=== PATIENT | female | born 1940 | race Caucasian/White ===

== ENCOUNTER → 2016-06-24 | Outpatient (CLI) | payer MEDICARE, BC ==
--- NOTE | 2016-06-25 11:19 | MM ---
Reason for exam: screening (asymptomatic). Last mammogram was performed 1 year and 3 months ago. History: Patient is postmenopausal and history of other cancer. Physical Findings: A clinical breast exam by your physician is recommended on an annual basis and results should be correlated with mammographic findings. MG 3D Screening Mammo W/Cad Bilateral CC and MLO view(s) were taken. Prior study comparison: March 22, 2015, bilateral MG 3d screening mammo w/cad. There are scattered fibroglandular densities. Focal asymmetry in the left breast upper quadrant seen on MLO view, negative on tomosynthesis. Short term follow up recommended. ASSESSMENT: Probably benign, BI-RAD 3 RECOMMENDATION: Follow-up diagnostic mammogram of the left breast in 6 months.
== END | disposition home or self-care (01) ==
LOC: RADMAMWWP 10:37
PROVIDERS: ATTEND Family Medicine
DX: Z12.31 Encounter for screening mammogram for malignant neoplasm of breast (principal)
CPT/HCPCS: 77063; G0202

== ENCOUNTER → 2017-01-04 | Outpatient (CLI) | payer MEDICARE, BC ==
--- NOTE | 2017-01-04 10:53 | MM ---
Reason for exam: follow-up at short interval from prior study. Last mammogram was performed 6 months ago. History: Patient is postmenopausal and history of other cancer. Physical Findings: Nurse did not find any significant physical abnormalities on exam. MG 3D Diag Mammo W/Cad LT CC and MLO view(s) were taken of the left breast. Prior study comparison: June 24, 2016, bilateral MG 3d screening mammo w/cad. March 22, 2015, bilateral MG 3d screening mammo w/cad. There are scattered fibroglandular densities. The questioned asymmetric density superior left breast questioned on prior exams has resolved compatible with summation shadow. No significant new findings when compared with previous films. These results were verbally communicated with the patient and result sheet given to the patient on 01/04/17. ASSESSMENT: Negative, BI-RAD 1 RECOMMENDATION: Return to routine screening mammogram schedule for both breasts. Back on schedule.
== END | disposition home or self-care (01) ==
LOC: RADMAMWWP 09:49
PROVIDERS: ATTEND Family Medicine
DX: R92.8 Other abnormal and inconclusive findings on diagnostic imaging of breast (principal)
CPT/HCPCS: G0206; G0279

== ENCOUNTER 2017-12-01 08:12 | Inpatient (IN) | payer MEDICARE, BC ==
[2017-12-01] MEDS ORDERED: MORPHINE SULFATE 2 MG/ML SYRINGE IVP STA (08:16)
[2017-12-01] MEDS ORDERED: ONDANSETRON 4 MG/2 ML VIAL IVP STA (08:16)
[2017-12-01] MEDS ORDERED: SODIUM CHLORIDE 0.9% 1,000 ML IV STA ×3 (08:16→08:53)
[2017-12-01] MEDS ORDERED: FAMOTIDINE 20 MG/2 ML VIAL IV STA (08:17)
--- NOTE | 2017-12-01 08:20 | ED ---
General Adult HPI - General Stated complaint: abd pain,nausea Time Seen by Provider: 12/01/17 08:16 Source: patient, EMS, RN notes reviewed Mode of arrival: EMS Limitations: no limitations - History of Present Illness Initial comments: Patient is a pleasant 77-year-old female presenting to the emergency Department with abdominal discomfort. Onset was last night. Discomfort has progressed and is severe at this time. Discomfort is lower abdomen. No constipation or diarrhea. Patient has had nausea and several episodes of spitting up. Patient states there has not been as much is a normal vomit. No fevers. No chest pain. No history of similar symptoms previously. - Related Data Home Medications Medication Instructions Recorded Confirmed Levothyroxine Sodium [Synthroid] 125 mcg PO DAILY 12/26/13 12/01/17 Losartan/Hydrochlorothiazide 1 tab PO DAILY 08/29/15 12/01/17 [Hyzaar 100-25 Tablet] Ibuprofen [Motrin] 800 mg PO TID PRN 12/01/17 12/01/17 Promethaz-Cod 6.25-10 mg/5 ml 5 ml PO Q8H PRN 12/01/17 12/01/17 [Phenergan with Codeine] predniSONE 40 mg PO AC-BRKFST 12/01/17 12/01/17 Allergies Allergy/AdvReac Type Severity Reaction Status Date / Time hydrocodone Allergy Nausea & Verified 12/01/17 10:50 Vomiting hydrocodone bitartrate Allergy Nausea & Verified 12/01/17 10:50 [From Vicodin] Vomiting acetaminophen [From [place]] AdvReac Nausea & Verified 12/01/17 10:50 Vomiting grass,mold,dust,cats,trees Allergy Unknown Uncoded 11/12/15 11:50 tape Allergy skin Uncoded 11/12/15 11:22 blisters, itching Review of Systems ROS Statement: Those systems with pertinent positive or pertinent negative responses have been documented in the HPI. ROS Other: All systems not noted in ROS Statement are negative. Constitutional: Denies: fever Eyes: Denies: eye pain ENT: Denies: ear pain Respiratory: Denies: cough Cardiovascular: Denies: chest pain Endocrine: Denies: fatigue Gastrointestinal: Reports: abdominal pain, nausea, vomiting. Denies: diarrhea, constipation Genitourinary: Denies: dysuria Musculoskeletal: Reports: back pain (Lower back) Skin: Denies: rash Past Medical History Past Medical History: Asthma, Cancer, Hypertension, Musculoskeletal Disorder, Osteoarthritis (OA), Thyroid Disorder Additional Past Medical History / Comment(s): SKIN CANCER, History of Any Multi-Drug Resistant Organisms: None Reported Past Surgical History: Appendectomy, Hernia Repair, Hysterectomy, Joint Replacement, Orthopedic Surgery Additional Past Surgical History / Comment(s): left knee replacement, wu knee arthroscopic, skin graft face, thyroid surgery,tilt table test, lasik eye surgery," LOOP RECODER" Past Anesthesia/Blood Transfusion Reactions: Postoperative Nausea & Vomiting ( PONV) Smoking Status: Current every day smoker - Past Family History Son(s) Family Medical History: Cancer Additional Family Medical History / Comment(s): TESTICLE Daughter(s) Family Medical History: Cancer Additional Family Medical History / Comment(s): OVARIAN CANCER Mother Family Medical History: Cancer Additional Family Medical History / Comment(s): STOMACH CANCER General Exam Limitations: no limitations General appearance: alert, in distress (Patient does appear uncomfortable) Head exam: Present: atraumatic Eye exam: Present: normal appearance, PERRL ENT exam: Present: normal oropharynx Neck exam: Present: normal inspection Respiratory exam: Present: normal lung sounds bilaterally Cardiovascular Exam: Present: regular rate, normal rhythm Expanded Peripheral pulses: 2+: Dorsalis Pedis (R), Dorsalis Pedis (L) GI/Abdominal exam: Present: soft, tenderness (Mild tenderness lower abdomen), normal bowel sounds. Absent: distended, guarding, rebound, rigid, pulsatile mass Extremities exam: Present: normal inspection. Absent: pedal edema, calf tenderness Back exam: Present: normal inspection. Absent: CVA tenderness (R), CVA tenderness (L), vertebral tenderness Neurological exam: Present: alert Psychiatric exam: Present: normal affect, normal mood Skin exam: Present: normal color. Absent: rash Course Vital Signs 12/01/17 12/01/17 12/01/17 08:23 08:25 08:50 Temperature 98.9 F Pulse Rate 80 73 Respiratory 18 16 Rate Blood Pressure 86/47 66/43 O2 Sat by Pulse 90 L 92 L Oximetry 12/01/17 12/01/17 12/01/17 09:26 09:52 10:21 Temperature Pulse Rate 84 83 77 Respiratory 16 16 16 Rate Blood Pressure 79/41 72/47 71/49 O2 Sat by Pulse 92 L 92 L 93 L Oximetry 12/01/17 11:40 Temperature Pulse Rate 89 Respiratory 18 Rate Blood Pressure 96/53 O2 Sat by Pulse 93 L Oximetry - Reevaluation(s) Reevaluation #1: 12/01/17 11:16 Patient reevaluated without significant change. Abdomen still soft with mild nonspecific tenderness. No tenderness in the left CVA region. No rash. Blood pressure has slightly improved with IV fluid bolus. Patient was certainly the fed him systolic blood pressure is now 83. Patient and son updated on results. Dr. Houser has been paged. 12/01/17 11:41 Dr. Houser has been paged again. Case was discussed in detail with Dr. Estevez, who will admit for Dr. Kim. 12/01/17 11:47 Dr. Houser is in surgery. Need for consult and concerns are relayed to him through nursing staff. 12/01/17 12:10 Case was also discussed with Dr. Pereira, who will consult for critical care. There is concern for sepsis with unclear exact etiology. This is diagnosed at 12:10 PM. Blood culture and lactic acid and IV antibiotics have been ordered. Fluid bolus has been provided greater than 30 mL/kg. Focused exam completed. EKG Findings - EKG Comments: EKG Findings:: Normal sinus rhythm at 80. DC 170. QRS 92. QT 366. QTc 422. Normal axis. Normal QRS. No acute ST change. Procedures - Sepsis Sepsis Focused Exam #1 Time Sepsis Criteria Met: 12:10 Sepsis Focused Exam Date: 12/01/17 Sepsis Focused Exam Time: 12:11 Sepsis Focused Exam Complete: Yes Vital Signs & RN Notes Reviewed: Yes Capillary Refill: < 2 Seconds: Fingers, Toes Peripheral Pulses: Normal: Radial (R), Radial (L) Skin Color: Normal for Patient Respiratory Exam: wheezes (Patient states chronic and does not need a breathing treatment) Cardiovascular Exam: regular rate, normal rhythm Medical Decision Making - Lab Data Result diagrams: 12/01/17 08:20 12/01/17 08:20 Lab Results 12/01/17 12/01/17 12/01/17 Range/Units 08:20 08:20 08:20 WBC 14.4 H (3.8-10.6) k/uL RBC 4.15 (3.80-5.40) m/uL Hgb 12.7 (11.4-16.0) gm/dL Hct 38.3 (34.0-46.0) % MCV 92.3 (80.0-100.0) fL MCH 30.6 (25.0-35.0) pg MCHC 33.2 (31.0-37.0) g/dL RDW 13.6 (11.5-15.5) % Plt Count 158 (150-450) k/uL Neutrophils % (Manual) 81 % Band Neutrophils % 11 % Lymphocytes % (Manual) 6 % Monocytes % (Manual) 1 % Eosinophils % (Manual) 1 % Metamyelocytes % 1 % Neutrophils # (Manual) 13.20 H (1.3-7.7) k/uL Lymphocytes # (Manual) 0.86 L (1.0-4.8) k/uL Monocytes # (Manual) 0.14 (0-1.0) k/uL Eosinophils # (Manual) 0.14 (0-0.7) k/uL Metamyelocytes # (Man) 0.14 H (0) k/uL Nucleated RBCs 0 (0-0) /100 WBC Manual Slide Review Performed Toxic Granulation Present RBC Morphology Normal PT (9.0-12.0) sec INR (<1.2) APTT (22.0-30.0) sec Sodium 128 L (137-145) mmol/L Potassium 3.5 (3.5-5.1) mmol/L Chloride 95 L (98-107) mmol/L Carbon Dioxide 24 (22-30) mmol/L Anion Gap 9 mmol/L BUN 19 H (7-17) mg/dL Creatinine 1.21 H (0.52-1.04) mg/dL Est GFR (CKD-EPI)AfAm 50 (>60 ml/min/1.73 sqM) Est GFR (CKD-EPI)NonAf 44 (>60 ml/min/1.73 sqM) Glucose 89 (74-99) mg/dL Lactic Ac Sepsis Rflx Plasma Lactic Acid Bryn (0.7-2.0) mmol/L Calcium 8.6 (8.4-10.2) mg/dL Total Bilirubin 1.0 (0.2-1.3) mg/dL AST 70 H (14-36) U/L ALT 65 H (9-52) U/L Alkaline Phosphatase 180 H (38-126) U/L Total Creatine Kinase 59 (30-135) U/L CK-MB (CK-2) 1.0 (0.0-2.4) ng/mL CK-MB (CK-2) Rel Index 1.7 Troponin I 0.048 H* (0.000-0.034) ng/mL Total Protein 5.0 L (6.3-8.2) g/dL Albumin 2.7 L (3.5-5.0) g/dL Amylase 41 (30-110) U/L Lipase 48 (23-300) U/L Urine Color Urine Appearance (Clear) Urine pH (5.0-8.0) Ur Specific [place] (1.001-1.035) Urine Protein (Negative) Urine Glucose (UA) (Negative) Urine Ketones (Negative) Urine Blood (Negative) Urine Nitrite (Negative) Urine Bilirubin (Negative) Urine Urobilinogen (<2.0) mg/dL Ur Leukocyte Esterase (Negative) Urine RBC (0-5) /hpf Urine WBC (0-5) /hpf Ur Squamous Epith Cells (0-4) /hpf Urine Bacteria (None) /hpf Urine Mucus (None) /hpf 12/01/17 12/01/17 12/01/17 Range/Units 08:20 08:20 08:50 WBC (3.8-10.6) k/uL RBC (3.80-5.40) m/uL Hgb (11.4-16.0) gm/dL Hct (34.0-46.0) % MCV (80.0-100.0) fL MCH (25.0-35.0) pg MCHC (31.0-37.0) g/dL RDW (11.5-15.5) % Plt Count (150-450) k/uL Neutrophils % (Manual) % Band Neutrophils % % Lymphocytes % (Manual) % Monocytes % (Manual) % Eosinophils % (Manual) % Metamyelocytes % % Neutrophils # (Manual) (1.3-7.7) k/uL Lymphocytes # (Manual) (1.0-4.8) k/uL Monocytes # (Manual) (0-1.0) k/uL Eosinophils # (Manual) (0-0.7) k/uL Metamyelocytes # (Man) (0) k/uL Nucleated RBCs (0-0) /100 WBC Manual Slide Review Toxic Granulation RBC Morphology PT 11.7 (9.0-12.0) sec INR 1.2 H (<1.2) APTT 25.5 (22.0-30.0) sec Sodium (137-145) mmol/L Potassium (3.5-5.1) mmol/L Chloride (98-107) mmol/L Carbon Dioxide (22-30) mmol/L Anion Gap mmol/L BUN (7-17) mg/dL Creatinine (0.52-1.04) mg/dL Est GFR (CKD-EPI)AfAm (>60 ml/min/1.73 sqM) Est GFR (CKD-EPI)NonAf (>60 ml/min/1.73 sqM) Glucose (74-99) mg/dL Lactic Ac Sepsis Rflx Y Plasma Lactic Acid Bryn 5.5 H* (0.7-2.0) mmol/L Calcium (8.4-10.2) mg/dL Total Bilirubin (0.2-1.3) mg/dL AST (14-36) U/L ALT (9-52) U/L Alkaline Phosphatase (38-126) U/L Total Creatine Kinase (30-135) U/L CK-MB (CK-2) (0.0-2.4) ng/mL CK-MB (CK-2) Rel Index Troponin I (0.000-0.034) ng/mL Total Protein (6.3-8.2) g/dL Albumin (3.5-5.0) g/dL Amylase (30-110) U/L Lipase (23-300) U/L Urine Color Urine Appearance (Clear) Urine pH (5.0-8.0) Ur Specific [place] (1.001-1.035) Urine Protein (Negative) Urine Glucose (UA) (Negative) Urine Ketones (Negative) Urine Blood (Negative) Urine Nitrite (Negative) Urine Bilirubin (Negative) Urine Urobilinogen (<2.0) mg/dL Ur Leukocyte Esterase (Negative) Urine RBC (0-5) /hpf Urine WBC (0-5) /hpf Ur Squamous Epith Cells (0-4) /hpf Urine Bacteria (None) /hpf Urine Mucus (None) /hpf 12/01/17 Range/Units 10:18 WBC (3.8-10.6) k/uL RBC (3.80-5.40) m/uL Hgb (11.4-16.0) gm/dL Hct (34.0-46.0) % MCV (80.0-100.0) fL MCH (25.0-35.0) pg MCHC (31.0-37.0) g/dL RDW (11.5-15.5) % Plt Count (150-450) k/uL Neutrophils % (Manual) % Band Neutrophils % % Lymphocytes % (Manual) % Monocytes % (Manual) % Eosinophils % (Manual) % Metamyelocytes % % Neutrophils # (Manual) (1.3-7.7) k/uL Lymphocytes # (Manual) (1.0-4.8) k/uL Monocytes # (Manual) (0-1.0) k/uL Eosinophils # (Manual) (0-0.7) k/uL Metamyelocytes # (Man) (0) k/uL Nucleated RBCs (0-0) /100 WBC Manual Slide Review Toxic Granulation RBC Morphology PT (9.0-12.0) sec INR (<1.2) APTT (22.0-30.0) sec Sodium (137-145) mmol/L Potassium (3.5-5.1) mmol/L Chloride (98-107) mmol/L Carbon Dioxide (22-30) mmol/L Anion Gap mmol/L BUN (7-17) mg/dL Creatinine (0.52-1.04) mg/dL Est GFR (CKD-EPI)AfAm (>60 ml/min/1.73 sqM) Est GFR (CKD-EPI)NonAf (>60 ml/min/1.73 sqM) Glucose (74-99) mg/dL Lactic Ac Sepsis Rflx Plasma Lactic Acid Bryn (0.7-2.0) mmol/L Calcium (8.4-10.2) mg/dL Total Bilirubin (0.2-1.3) mg/dL AST (14-36) U/L ALT (9-52) U/L Alkaline Phosphatase (38-126) U/L Total Creatine Kinase (30-135) U/L CK-MB (CK-2) (0.0-2.4) ng/mL CK-MB (CK-2) Rel Index Troponin I (0.000-0.034) ng/mL Total Protein (6.3-8.2) g/dL Albumin (3.5-5.0) g/dL Amylase (30-110) U/L Lipase (23-300) U/L Urine Color Dark Brown Urine Appearance Turbid H (Clear) Urine pH 6.0 (5.0-8.0) Ur Specific [place] 1.028 (1.001-1.035) Urine Protein 3+ H (Negative) Urine Glucose (UA) Trace H (Negative) Urine Ketones Negative (Negative) Urine Blood Negative (Negative) Urine Nitrite Negative (Negative) Urine Bilirubin 1+ H (Negative) Urine Urobilinogen 6.0 (<2.0) mg/dL Ur Leukocyte Esterase Moderate H (Negative) Urine RBC 16 H (0-5) /hpf Urine WBC 8 H (0-5) /hpf Ur Squamous Epith Cells 9 H (0-4) /hpf Urine Bacteria Rare H (None) /hpf Urine Mucus Moderate H (None) /hpf Critical Care Time Critical Care Time: Yes Total Critical Care Time: 37 Disposition Clinical Impression: Septic shock, Abdominal pain Disposition: ADMITTED IP TO THIS HOSP Condition: Critical Is patient prescribed a controlled substance at d/c from ED?: No Referrals: Keila Kim DO [Primary Care Provider] - 1-2 days Decision Time: 12:12
[2017-12-01 08:46] LABS: Albumin 2.7 g/dL (3.5-5.0); Calcium 8.6 mg/dL (8.4-10.2); Potassium 3.5 mmol/L (3.5-5.1)
[2017-12-01 08:48] LABS: INR 1.2 (<1.2); Partial Thromboplastin Time 25.5 sec (22.0-30.0); Prothrombin Time 11.7 sec (9.0-12.0)
[2017-12-01] MEDS: SODIUM CHLORIDE 0.9% 1,000 ML IV ONE ×2 (08:56→09:51)
--- NOTE | 2017-12-01 09:07 | XR ---
EXAMINATION TYPE: XR KUB DATE OF EXAM: 12/01/2017 9:02 AM CLINICAL HISTORY: Abdominal pain not further specified. TECHNIQUE: Two supine KUB images of the abdomen are obtained. COMPARISON: CT abdomen and pelvis March 13, 2015. FINDINGS: Overlying EKG leads are seen. Scattered gas is seen in non-distended stomach and small kiel l loops. Gas and fecal material is seen in non-distended colon. Multiple scattered pelvic phleboliths are redemonstrated. There is advanced degenerative change right hip which has progressed from prior CT with marked joint space loss and subchondral cystic change. There is advanced spurring and disc sp wilmer narrowing in the mid to lower lumbar spine. There is partial visualization of cardiac pacemaker l ead. Liver shadow is somewhat more prominent. IMPRESSION: Overall nonobstructive bowel gas pattern. Liver noted slightly more prominent on current study.
[2017-12-01 09:12] LABS: Troponin I 0.048 ng/mL (0.000-0.034)
[2017-12-01 09:18] LABS: HCT 38.3 % (34.0-46.0); HGB 12.7 gm/dL (11.4-16.0); MCH 30.6 pg (25.0-35.0); MCHC 33.2 g/dL (31.0-37.0); MCV 92.3 fL (80.0-100.0); Mean Platelet Volume 7.1; Platelet Count 158 k/uL (150-450); RBC 4.15 m/uL (3.80-5.40); RDW 13.6 % (11.5-15.5); WBC 14.4 k/uL (3.8-10.6)
[2017-12-01 09:39] LABS: Band Neutrophils % 11 %; Eosinophils # (M) 0.14 k/uL (0-0.7); Lymphocytes # (M) 0.86 k/uL (1.0-4.8); Metamyelocytes # (M) 0.14 k/uL (0); Metamyelocytes % 1 %; Monocytes # (M) 0.14 k/uL (0-1.0); Neutrophils % (M) 81 %; Nucleated Red Blood Cells 0 /100 WBC (0-0); Total Cells Counted 200; Toxic Granulation Present
--- NOTE | 2017-12-01 10:04 | CT ---
EXAMINATION TYPE: CT abdomen pelvis w con DATE OF EXAM: 12/01/2017 COMPARISON: 03/13/2015 INDICATION: abd pain, nausea DLP: 1423.8 mGycm, Automated exposure control for dose reduction was used. CONTRAST: 80 mL of Isovue 300. Study performed without Oral Contrast TECHNIQUE: Axial images were obtained from above the diaphragm to the pubic rami in the axial plane a t 5 mm thick sections. Reconstructed images are reviewed on the computer in the coronal plane. FINDINGS: Limited CT sections are obtained the lung bases. Minimal compressive atelectasis at the dependent po rtions of the lung bases.. CT ABDOMEN: No abnormal fluid collections are evident. Liver: Normal Spleen: Normal Pancreas: Pancreatic duct at the body the pancreas is slightly prominent 0.5 cm. Normal less than 0.2 cm. Tail of the pancreas pancreatic duct measures 0.3 cm. Normal less than 0.1 cm. No discrete jarocho s at the head of the pancreas are identified. Consider follow-up with ERCP. Correlate for pancreatiti s. Adrenal glands: The adrenal glands are normal. Gallbladder: Normal Kidneys: Small amount of perinephric fluid is present bilaterally. Some perinephric stranding is pres ent on the left. No masses are evident. No hydronephrosis is present. There is a 1.4 cm cyst on the medial superior left kidney. Delayed images were obtained through the kidneys. Aorta: Vascular calcification is within the aorta. Inferior vena cava: Normal. CT PELVIS: Loops of bowel within the abdomen and pelvis are normal. Studies performed without oral contrast limiting bowel loop evaluation. Multiple diverticuli within the sigmoid colon. Fecal debris is within the distal colon. Appendix: Normal as visualized. Urinary bladder: Decompressed with limited evaluation. Genitourinary structures: Uterus and ovaries are not identified. Osseous structures: No suspicious lytic or sclerotic lesions. Degenerative changes are at the right h ip. Degenerative facet changes and disc changes are present through the lumbar spine. IMPRESSIONS: 1. Perinephric stranding on the left with bilateral perinephric fluid. Consider pyelonephritis. No o bstruction is evident. 2. Diverticulosis without acute diverticulitis sigmoid colon. 3. Prominence of the pancreatic duct within the body and tail of the pancreas. Follow-up with ERCP co uld be considered. Correlate for mild acute pancreatitis
[2017-12-01] MEDS ORDERED: NOREPINEPHRIN 4 MG-0.9% NS PMX 4 MG/250 ML ML IV ONE (10:48)
[2017-12-01 10:56] LABS: Appearance,Urine Turbid (Clear); Bacteria,Urine Rare /hpf; Bilirubin,Urine 1+ (Negative); Blood,Urine Negative (Negative); Color,Urine Dark Brown; Glucose,Urine (UA) Trace (Negative); Ketones,Urine Negative (Negative); Leukocyte Esterase,Urine Moderate (Negative); Mucus,Urine Moderate /hpf; Nitrite,Urine Negative (Negative); Protein,Urine 3+ (Negative); RBC,Urine 16 /hpf (0-5); Specific Gravity,Urine 1.028 (1.001-1.035); Squamous Epithelial Cell,Urine 9 /hpf (0-4); WBC,Urine 8 /hpf (0-5)
[2017-12-01] MEDS ORDERED: NOREPINEPHRINE 4 MG in DEXTROSE 5% IN WATER 250 ML IV ONE ×2 (11:00)
[2017-12-01] MEDS ORDERED: AMPICILLIN-SULBACTAM 3 GM in SODIUM CHLORIDE 0.9% 100 ML IVPB STA (11:09)
[2017-12-01] MEDS ORDERED: NALOXONE 0.4 MG/ML 1 ML VIAL IV PRN (12:12)
[2017-12-01] MEDS ORDERED: IPRATROPIUM-ALBUTEROL 3 ML NEB INHALATION PRN (12:12)
--- NOTE | 2017-12-01 12:44 | P.GSCN ---
History of Present Illness Consult date: 12/01/17 Reason for Consult: Abdominal pain History of present illness: Patient presents to the ER this morning with complaints of abdominal pain that began yesterday evening around 9:30. Patient states the pain comes in waves. There are cramps at times. When the pain is there it is quite severe in between episodes of cramps pain is tolerable she states. She is afebrile. Last normal bowel movement yesterday. She feels the urge to have a bowel movement currently. She is nauseated. Appetite diminished. She is afebrile. She was hypotensive on arrival. Lactic acid elevated at 5.5. White blood cell count elevated with some bandemia as well. Patient denies any urinary symptoms. CAT scan was reviewed. There is some perinephric standing left greater than right. Urinalysis does suggest possible urinary infection. There is also some thickening of the splenic flexure region of the colon. The remainder the bowel as visualized appeared fairly normal. The vasculature that I can review shows no definite abnormalities. No history of similar events. Review of Systems The patient denies any acute changes in vision or hearing, no dysphagia or odynophagia, no chest pain or shortness of breath, no dysuria or hematuria, no headache, no runny nose, no rectal bleeding or melena, no unexplained weight loss Past Medical History Past Medical History: Asthma, Cancer, Hypertension, Musculoskeletal Disorder, Osteoarthritis (OA), Thyroid Disorder Additional Past Medical History / Comment(s): SKIN CANCER, History of Any Multi-Drug Resistant Organisms: None Reported Past Surgical History: Appendectomy, Hernia Repair, Hysterectomy, Joint Replacement, Orthopedic Surgery Additional Past Surgical History / Comment(s): left knee replacement, wu knee arthroscopic, skin graft face, thyroid surgery,tilt table test, lasik eye surgery," LOOP RECODER" Past Anesthesia/Blood Transfusion Reactions: Postoperative Nausea & Vomiting ( PONV) Smoking Status: Current every day smoker - Past Family History Son(s) Family Medical History: Cancer Additional Family Medical History / Comment(s): TESTICLE Daughter(s) Family Medical History: Cancer Additional Family Medical History / Comment(s): OVARIAN CANCER Mother Family Medical History: Cancer Additional Family Medical History / Comment(s): STOMACH CANCER Medications and Allergies Home Medications Medication Instructions Recorded Confirmed Type Levothyroxine Sodium [Synthroid] 125 mcg PO DAILY 12/26/13 12/01/17 History Losartan/Hydrochlorothiazide 1 tab PO DAILY 08/29/15 12/01/17 History [Hyzaar 100-25 Tablet] Ibuprofen [Motrin] 800 mg PO TID PRN 12/01/17 12/01/17 History Promethaz-Cod 6.25-10 mg/5 ml 5 ml PO Q8H PRN 12/01/17 12/01/17 History [Phenergan with Codeine] predniSONE 40 mg PO AC-BRKFST 12/01/17 12/01/17 History Allergies Allergy/AdvReac Type Severity Reaction Status Date / Time hydrocodone Allergy Nausea & Verified 12/01/17 10:50 Vomiting hydrocodone bitartrate Allergy Nausea & Verified 12/01/17 10:50 [From Vicodin] Vomiting acetaminophen [From [place]] AdvReac Nausea & Verified 12/01/17 10:50 Vomiting grass,mold,dust,cats,trees Allergy Unknown Uncoded 11/12/15 11:50 tape Allergy skin Uncoded 11/12/15 11:22 blisters, itching Surgical - Exam Vital Signs Temp Pulse Resp Pulse Ox 98.9 F 80 18 90 L 12/01/17 08:23 12/01/17 08:23 12/01/17 08:23 12/01/17 08:23 Physical exam: General: Well-developed, well-nourished, in no distress HEENT: Normocephalic, sclerae nonicteric Abdomen: Mild diffuse tenderness, no rebound or guarding, mild distention Extremities: No edema Neuro: Alert and oriented Results - Labs 12/01/17 08:20 12/01/17 08:20 Abnormal Lab Results - Last 24 Hours (Table) 12/01/17 12/01/17 12/01/17 Range/Units 08:20 08:20 08:20 WBC 14.4 H (3.8-10.6) k/uL Neutrophils # (Manual) 13.20 H (1.3-7.7) k/uL Lymphocytes # (Manual) 0.86 L (1.0-4.8) k/uL Metamyelocytes # (Man) 0.14 H (0) k/uL INR (<1.2) Sodium 128 L (137-145) mmol/L Chloride 95 L (98-107) mmol/L BUN 19 H (7-17) mg/dL Creatinine 1.21 H (0.52-1.04) mg/dL Plasma Lactic Acid Bryn (0.7-2.0) mmol/L AST 70 H (14-36) U/L ALT 65 H (9-52) U/L Alkaline Phosphatase 180 H (38-126) U/L Troponin I 0.048 H* (0.000-0.034) ng/mL Total Protein 5.0 L (6.3-8.2) g/dL Albumin 2.7 L (3.5-5.0) g/dL Urine Appearance (Clear) Urine Protein (Negative) Urine Glucose (UA) (Negative) Urine Bilirubin (Negative) Ur Leukocyte Esterase (Negative) Urine RBC (0-5) /hpf Urine WBC (0-5) /hpf Ur Squamous Epith Cells (0-4) /hpf Urine Bacteria (None) /hpf Urine Mucus (None) /hpf 12/01/17 12/01/17 12/01/17 Range/Units 08:20 08:20 10:18 WBC (3.8-10.6) k/uL Neutrophils # (Manual) (1.3-7.7) k/uL Lymphocytes # (Manual) (1.0-4.8) k/uL Metamyelocytes # (Man) (0) k/uL INR 1.2 H (<1.2) Sodium (137-145) mmol/L Chloride (98-107) mmol/L BUN (7-17) mg/dL Creatinine (0.52-1.04) mg/dL Plasma Lactic Acid Bryn 5.5 H* (0.7-2.0) mmol/L AST (14-36) U/L ALT (9-52) U/L Alkaline Phosphatase (38-126) U/L Troponin I (0.000-0.034) ng/mL Total Protein (6.3-8.2) g/dL Albumin (3.5-5.0) g/dL Urine Appearance Turbid H (Clear) Urine Protein 3+ H (Negative) Urine Glucose (UA) Trace H (Negative) Urine Bilirubin 1+ H (Negative) Ur Leukocyte Esterase Moderate H (Negative) Urine RBC 16 H (0-5) /hpf Urine WBC 8 H (0-5) /hpf Ur Squamous Epith Cells 9 H (0-4) /hpf Urine Bacteria Rare H (None) /hpf Urine Mucus Moderate H (None) /hpf Diabetes panel 12/01/17 Range/Units 08:20 Sodium 128 L (137-145) mmol/L Potassium 3.5 (3.5-5.1) mmol/L Chloride 95 L (98-107) mmol/L Carbon Dioxide 24 (22-30) mmol/L BUN 19 H (7-17) mg/dL Creatinine 1.21 H (0.52-1.04) mg/dL Glucose 89 (74-99) mg/dL Calcium 8.6 (8.4-10.2) mg/dL AST 70 H (14-36) U/L ALT 65 H (9-52) U/L Alkaline Phosphatase 180 H (38-126) U/L Total Protein 5.0 L (6.3-8.2) g/dL Albumin 2.7 L (3.5-5.0) g/dL Calcium panel 12/01/17 Range/Units 08:20 Calcium 8.6 (8.4-10.2) mg/dL Albumin 2.7 L (3.5-5.0) g/dL Pituitary panel 12/01/17 Range/Units 08:20 Sodium 128 L (137-145) mmol/L Potassium 3.5 (3.5-5.1) mmol/L Chloride 95 L (98-107) mmol/L Carbon Dioxide 24 (22-30) mmol/L BUN 19 H (7-17) mg/dL Creatinine 1.21 H (0.52-1.04) mg/dL Glucose 89 (74-99) mg/dL Calcium 8.6 (8.4-10.2) mg/dL Adrenal panel 12/01/17 Range/Units 08:20 Sodium 128 L (137-145) mmol/L Potassium 3.5 (3.5-5.1) mmol/L Chloride 95 L (98-107) mmol/L Carbon Dioxide 24 (22-30) mmol/L BUN 19 H (7-17) mg/dL Creatinine 1.21 H (0.52-1.04) mg/dL Glucose 89 (74-99) mg/dL Calcium 8.6 (8.4-10.2) mg/dL Total Bilirubin 1.0 (0.2-1.3) mg/dL AST 70 H (14-36) U/L ALT 65 H (9-52) U/L Alkaline Phosphatase 180 H (38-126) U/L Total Protein 5.0 L (6.3-8.2) g/dL Albumin 2.7 L (3.5-5.0) g/dL Assessment and Plan (1) Abdominal pain Narrative/Plan: Patient with diffuse abdominal pain and CAT scan suggesting possible ischemic colitis. Patient is sinus rhythm with no history of arrhythmia. CAT scan shows no definite evidence of acute ischemic bowel. Thickening of the splenic flexure on CAT scan would be consistent with possible ischemic colitis however. This is typically a low-flow scenario and treated nonoperatively successfully in most cases. Perinephric standing also suggest the possibility of pyelonephritis. Clinical scenario was discussed in detail with the patient. Will plan admission to the ICU with broad-spectrum antibiotic coverage, infectious disease consultation, critical care consultation, and repeat lab work and serial exams. If the patient does not improve as expected may require diagnostic laparoscopy or exploratory laparotomy. The seriousness of her presentation was reviewed with her. Current Visit: Yes Status: Acute Code(s): R10.9 - UNSPECIFIED ABDOMINAL PAIN SNOMED Code(s): 37032695
--- NOTE | 2017-12-01 13:11 | XR ---
EXAMINATION TYPE: XR chest 2V DATE OF EXAM: 12/01/2017 COMPARISON: 07/08/2013 TECHNIQUE: PA and lateral views submitted. HISTORY: Difficulty breathing FINDINGS: The lungs are clear and there is no pneumothorax, pleural effusion, or focal pneumonia. Postsurgica l change involving the right shoulder. Cardiac device seen. Diffuse interstitial pattern noted. Heart size stable. Diffuse osteopenia noted. IMPRESSION: 1. Diffuse interstitial pattern correlate for interstitial pneumonitis or mild venous congestion. Aty pical pneumonia also a consideration.
[2017-12-01] MEDS ORDERED: SODIUM CHLORIDE 0.9% 1,000 ML IV ONE ×3 (13:42→19:08)
[2017-12-01] MEDS: SODIUM CHLORIDE 0.9% 1,000 ML IV SCH (13:55)
[2017-12-01] MEDS ORDERED: NOREPINEPHRINE 4 MG in DEXTROSE 5% IN WATER 250 ML IV SCH ×2 (14:45)
--- NOTE | 2017-12-01 14:48 | P.CNPUL ---
History of Present Illness Consult date: 12/01/17 Reason for consult: other Chief complaint: Abdominal pain, chills History of present illness: Pulmonary consult dated 12/01/2017 This is a 77-year-old female with a history of hypertension and hypothyroidism. The patient presents to the emergency department with abdominal discomfort and chills. It apparently began 9:30 the night before. Prior to that, she was doing fine. It progressed and she apparently was brought in by EMS to be evaluated. The patient was seen by Dr. Tyshawn Jarrett. The patient was hypotensive. He gave her about 4 L of fluid. She will receive another half liter fluid by EMS. Eventually because of continuing low blood pressures, the patient was started on norepinephrine. Currently the patient's on fluid resuscitation and epinephrine at 5 mcg/m. The patient seems somewhat out of it. Her sounds at the bedside. No fever. She did have chills. No chest pain or chest discomfort. No respiratory complaints. Interestingly, she really has not not much in the way of urinary complaints either. Denies any frequency or dysuria pain on urination foul-smelling urine and blood in her urine frequency, etc. The patient has a history of hypertension asthma osteoarthritis hypothyroidism and skin cancer. The patient has been a smoker in the past. Doesn't smoke as much currently. She's had some orthopedic procedures as well. Review of Systems A 14 point review of system is positive for chills and abdominal pain. She denies any urinary complaints such as frequency dysuria or foul-smelling urine and blood in her urine, etc. Past Medical History Past Medical History: Asthma, Cancer, COPD, GI Bleed, Hypertension, Musculoskeletal Disorder, Osteoarthritis (OA), Thyroid Disorder Additional Past Medical History / Comment(s): Chronic bronchitis, 3rd degree heart block with pacemaker, arthritis L foot and bilateral knees, colitis/ stomach ulcer in the 1970s/lower GI bleed, hypothyroid, past migraines as a teen , past cellulitis on arms, occasional vertigo, skin cancer with removal. History of Any Multi-Drug Resistant Organisms: None Reported Past Surgical History: Appendectomy, Hernia Repair, Hysterectomy, Joint Replacement, Orthopedic Surgery, Pacemaker Additional Past Surgical History / Comment(s): TTT, loop recorder, pacemaker, skin cander removal L cheek/skin graft, inguinal hernia repairs x3, total L knee arthroplasty, bilateral knee arthroscopies, partial thyroidectomy, pain clinic procedures (cervical), bilateral lasik eye surgery for vision correction. Past Anesthesia/Blood Transfusion Reactions: No Reported Reaction Type of Cardiac Device: Permanent Pacemaker Device Placement Date:: 2015 Smoking Status: Light tobacco smoker - Past Family History Son(s) Family Medical History: Cancer Additional Family Medical History / Comment(s): TESTICLE Daughter(s) Family Medical History: Cancer Additional Family Medical History / Comment(s): OVARIAN CANCER Mother Family Medical History: Cancer Additional Family Medical History / Comment(s): STOMACH CANCER Father Family Medical History: No Reported History Additional Family Medical History / Comment(s): Father was healthy Medications and Allergies Home Medications Medication Instructions Recorded Confirmed Type Levothyroxine Sodium [Synthroid] 125 mcg PO DAILY 12/26/13 12/01/17 History Losartan/Hydrochlorothiazide 1 tab PO DAILY 08/29/15 12/01/17 History [Hyzaar 100-25 Tablet] Ibuprofen [Motrin] 800 mg PO TID PRN 12/01/17 12/01/17 History Promethaz-Cod 6.25-10 mg/5 ml 5 ml PO Q8H PRN 12/01/17 12/01/17 History [Phenergan with Codeine] predniSONE 40 mg PO AC-BRKFST 12/01/17 12/01/17 History Allergies Allergy/AdvReac Type Severity Reaction Status Date / Time hydrocodone Allergy Nausea & Verified 12/01/17 10:50 Vomiting hydrocodone bitartrate Allergy Nausea & Verified 12/01/17 10:50 [From Vicodin] Vomiting acetaminophen [From [place]] AdvReac Nausea & Verified 12/01/17 10:50 Vomiting grass,mold,dust,cats,trees Allergy Unknown Uncoded 11/12/15 11:50 tape Allergy skin Uncoded 11/12/15 11:22 blisters, itching Physical Exam Osteopathic Statement: *. No significant issues noted on an osteopathic structural exam other than those noted in the History and Physical/Consult. Vitals: Vital Signs Temp Pulse Resp BP Pulse Ox 12/01/17 14:00 98.1 F 102 H 24 111/53 96 12/01/17 13:45 107 H 29 H 100/56 96 12/01/17 13:32 97 12/01/17 13:05 93 20 122/56 90 L 12/01/17 11:40 89 18 96/53 93 L 12/01/17 10:21 77 16 71/49 93 L 12/01/17 09:52 83 16 72/47 92 L 12/01/17 09:26 84 16 79/41 92 L 12/01/17 08:50 73 16 66/43 92 L 12/01/17 08:25 86/47 12/01/17 08:23 98.9 F 80 18 90 L Intake and Output 11/30/17 12/01/17 12/01/17 22:59 06:59 14:59 Output Total 90 Balance -90 Output: Urine 90 Other: Weight 77.111 kg No acute distress, oriented 3. She seems a bit somnolent. Does arouse and speaks appropriately. HEENT examination is grossly unremarkable. Mucous membranes are moist. No oral lesions. Neck supple. Full range of motion. No adenopathy thyromegaly or neck vein distention. Cardiovascular examination reveals regular rhythm rate. S1-S2 normal. No S3 or S4. No discernible murmur noted. Heart rate about 105 bpm. Lungs reveal mostly clear breath sounds. Very mild expiratory wheezes noted. No crackles. No rhonchi. Breath sounds are equal. Abdomen is tender on palpation. Is mostly tender in the lower quadrants right and left. There is some more mild tenderness in the upper quadrants. Extremities are intact. No cyanosis clubbing or edema. Skin is without rash or lesion. Neurologic examination is brief but nonfocal. Results - Laboratory Findings CBC and BMP: 12/01/17 08:20 12/01/17 08:20 PT/INR, D-dimer PT 11.7 sec (9.0-12.0) 12/01/17 08:20 INR 1.2 (<1.2) H 12/01/17 08:20 Abnormal lab findings: Abnormal Labs 12/01/17 12/01/17 12/01/17 08:20 08:20 08:20 WBC 14.4 H Neutrophils # (Manual) 13.20 H Lymphocytes # (Manual) 0.86 L Metamyelocytes # (Man) 0.14 H INR Sodium 128 L Chloride 95 L BUN 19 H Creatinine 1.21 H Plasma Lactic Acid Bryn AST 70 H ALT 65 H Alkaline Phosphatase 180 H Troponin I 0.048 H* Total Protein 5.0 L Albumin 2.7 L Urine Appearance Urine Protein Urine Glucose (UA) Urine Bilirubin Ur Leukocyte Esterase Urine RBC Urine WBC Ur Squamous Epith Cells Urine Bacteria Urine Mucus 12/01/17 12/01/17 12/01/17 08:20 08:20 10:18 WBC Neutrophils # (Manual) Lymphocytes # (Manual) Metamyelocytes # (Man) INR 1.2 H Sodium Chloride BUN Creatinine Plasma Lactic Acid Bryn 5.5 H* AST ALT Alkaline Phosphatase Troponin I Total Protein Albumin Urine Appearance Turbid H Urine Protein 3+ H Urine Glucose (UA) Trace H Urine Bilirubin 1+ H Ur Leukocyte Esterase Moderate H Urine RBC 16 H Urine WBC 8 H Ur Squamous Epith Cells 9 H Urine Bacteria Rare H Urine Mucus Moderate H 12/01/17 12:41 WBC Neutrophils # (Manual) Lymphocytes # (Manual) Metamyelocytes # (Man) INR Sodium Chloride BUN Creatinine Plasma Lactic Acid Bryn 7.0 H* AST ALT Alkaline Phosphatase Troponin I Total Protein Albumin Urine Appearance Urine Protein Urine Glucose (UA) Urine Bilirubin Ur Leukocyte Esterase Urine RBC Urine WBC Ur Squamous Epith Cells Urine Bacteria Urine Mucus - Diagnostic Findings Chest x-ray: report reviewed, image reviewed (Chest x-ray, labs and medications are all reviewed.) Assessment and Plan Assessment: Assessment Septic shock, with a likely source being in the genitourinary tract. It appears on computed tomography scan that she may have evidence of pyelonephritis. Hypotension, secondary to sepsis Lactic acidosis Hypoalbuminemia History of skin cancer History of hypertension History of DJD History of hypothyroidism Leukocytosis Mild hyponatremia Plan: Plan dated 12/01/2017 The patient is currently receiving adequate fluid resuscitation. She received some Unasyn in the emergency department has been put on Zosyn. The patient's urine does look like it probably is infected. The leukocyte esterase was positive. There was some white blood cells and bacteria as well. The computed tomography scan was consistent with possible pyelonephritis. The patient should get adequate fluid resuscitation and should continue on norepinephrine to maintain a mean arterial pressure of about 65 mmHg. Additional recommendations and suggestions are forthcoming. Typically these patients will turn around rather quickly with appropriate antibiotics and maintenance of blood pressure. Additional recommendations and suggestions are forthcoming. Time with Patient: Greater than 30
[2017-12-01] MEDS: IPRATROPIUM-ALBUTEROL 3 ML NEB INHALATION SCH ×2 (15:48→20:08)
[2017-12-01] MEDS ORDERED: IBUPROFEN 600 MG TAB PO PRN (16:33)
[2017-12-01] MEDS: PIPERACILLIN-TAZOBACTAM 3.375 GM in DEXTROSE/WATER 1 50ML.BAG IVPB SCH (17:40)
[2017-12-01] MEDS ORDERED: AMPICILLIN-SULBACTAM 3 GM in SODIUM CHLORIDE 0.9% 100 ML IVPB SCH (18:00)
--- NOTE | 2017-12-01 18:32 | P.PN ---
Progress Note - Text Progress Note Date: 12/01/17 Patient was taken to the ICU from the ER several hours ago. Since that time the patient has been aggressively fluid resuscitated. She has over 5 L in boluses. Despite that the patient's lactic acid was noted increase further. The patient's systolic blood pressure most recently was 77 despite 10 g of Levophed. The patient's pain she says is about the same and is coming in waves. Ranges from 5-10 at times. Abdominal exam is minimally changed with mild diffuse tenderness somewhat increased in the left midabdomen. Clinical scenario was discussed with the patient again in detail with the patient's son at the bedside and later I spoke with the patient's daughter Daren who is a [employer] WORK[employer] in [place] by phone. The patient is not responding well to us far to our conservative management. Her hypotension and acidosis have increased. Urine output has become more marginal. Pain is about the same but slightly increased tenderness. At this point I favor diagnostic laparoscopy to evaluate both small bowel and colon. Based on those findings exporter laparotomy with resection may be required. Additionally temporary ostomy may be required. The patient and her family are agreeable at this time. Risks of bleeding, infection , hernia, staple line dehiscence, respiratory failure, cardiac complications, anesthesia complications were reviewed. They understand and wish to proceed.
[2017-12-01 18:48] LABS: Calcium 7.2 mg/dL (8.4-10.2); Magnesium 2.3 mg/dL (1.6-2.3); Potassium 3.6 mmol/L (3.5-5.1)
[2017-12-01] MEDS ORDERED: HYDROCORTISONE SUCCINATE 100 MG/2 ML VIAL ONE (19:08)
[2017-12-01] MEDS ORDERED: fentaNYL (PF) 50 MCG/ML 2 ML AMP ONE (19:08)
[2017-12-01] MEDS ORDERED: WATER FOR INJECTION, STERILE 10 ML VIAL IV ONE (19:08)
[2017-12-01] MEDS ORDERED: MIDAZOLAM 2 MG/2 ML VIAL ONE (19:08)
[2017-12-01] MEDS ORDERED: PROPOFOL 10 MG/ML 20 ML VIAL IV ONE (19:08)
[2017-12-01] MEDS ORDERED: PHENYLEPHRINE-0.9% NACL SYG 1 MG/10 ML SYRINGE ONE (19:08)
[2017-12-01] MEDS ORDERED: SUCCINYLCHOLINE CHLORIDE 100 MG/5 ML SYR IV ONE (19:08)
[2017-12-01] MEDS ORDERED: LIDOCAINE 1% INJ 10MG/ML (20 ML MDV) ONE (19:08)
[2017-12-01] MEDS ORDERED: VECURONIUM 10 MG VIAL IV ONE (19:08)
[2017-12-01] MEDS ORDERED: ONDANSETRON 4 MG/2 ML VIAL ONE (19:08)
--- NOTE | 2017-12-01 20:11 | CONS ---
CONSULTATION DATE OF SERVICE: 12/01/2017. REASON FOR CONSULTATION: Sepsis. HISTORY OF PRESENT ILLNESS: The patient is a 77-year-old female presenting to the ER at [facility] with chief complaint of abdominal pain that started around 9:30 last evening. The patient's pain has been mostly in the left lower abdominal as well as left flank area, describing it to be waxing and waning and crampy at times, intensity almost 7 to 8/10, and no radiation. The patient has associated nausea and vomiting with it. The patient denies having any diarrhea before she came to the hospital. However, the diarrhea started, did have one loose stool today with no blood or mucus in it. The patient also has been complaining of feeling very freezing and cold. With these symptoms, the patient has been evaluated by the ER physician. On arrival to the ER, the patient temperature was normal at 98.9. The patient did have elevated white count 14.40. Lactic acid was elevated at 5.5. Repeat is 7. Creatinine 1.21. Liver enzymes are mildly elevated. Urine was positive. The patient did have a CT of the abdomen and pelvis completed which did show perinephric stranding on the left with bilateral perinephric fluid, consider pyelonephritis, diverticulosis without evidence of diverticulitis, prominence of the pancreatic duct within the body and tail of pancreas. The patient has been admitted to the ICU as the patient was hypotensive requiring pressor support. Currently on 5 mics of Levophed. Infectious Disease was consulted for further recommendations regarding antibiotic therapy. REVIEW OF SYSTEMS: Constitutional: Positive for weakness along with chills. Eyes: No complaint. ENT no complaint. Respiratory: Occasional cough. Cardiovascular no complaint. Genitourinary as per HPI. Gastrointestinal: As per HPI. Musculoskeletal: No complaint. Integumentary: No complaint. Psychological: No complaint. Endocrine no complaint. Neurological no complaint. PAST MEDICAL HISTORY: Significant for asthma, hypertension, osteoarthritis, hypothyroidism, GI bleed, hypertension, chronic bronchitis, skin cancer. PAST SURGICAL HISTORY: Skin cancer removal, appendectomy, hernia repair, hysterectomy, loop recorder placement, left knee arthroplasty and permanent pacemaker placement. SOCIAL HISTORY: Patient does admit to smoking. No drinking or drug use though. FAMILY HISTORY: Father with history of testicular cancer. Daughter with history of ovarian cancer and mother with stomach cancer. ALLERGIES: TO HYDROCODONE AND TYLENOL. MEDICATION: Medications include the patient is currently on DuoNeb, Dilaudid, Narcan, Protonix, Zosyn and IV fluid. Unasyn was discontinued. Did receive one dose. EXAMINATION: Blood pressure is 111/53 with a pulse of 102, temperature 98.1. She is 96% on 2 L nasal cannula. General description is an elderly female lying in bed in no distress. No tachypnea or accessory muscles of respiration use. HEENT: Shows no pallor or scleral icterus. Oral mucosa membranes is dry. No pharyngeal erythema or thrush. Neck: Trachea central. No thyromegaly. Lungs unlabored breathing. Clear to auscultation. No wheeze or crackles. Heart S1, S2. Regular rate and rhythm. ABDOMEN: Soft, she is tender in the left lower quadrant area. No guarding. No rigidity. No organomegaly. EXTREMITIES: No edema of the feet. Skin examination: No rash or mass palpable. Neurological: Patient is awake, alert, oriented x3. Mood and affect normal. LABS: Hemoglobin is 12.7, white count 14.4, BUN of 19, creatinine is 1.1. Electrolytes: Sodium slightly low. She did have elevated liver enzymes. Urine is positive with moderate leukocyte esterases. 9 WBC. DIAGNOSTIC IMPRESSION AND PLAN: Patient admitted to the hospital with sepsis in a patient who did have a fever with chills. [place] [address]. She was hypertensive requiring a fluid and pressor support. Source is likely left-sided pyelonephritis, however, possible ischemic colitis especially involving the description of the surgical note that was not documented on the official CT scan report. We will have to cover for the enteric gram-negative both aerobes and anaerobes. PLAN: 1. Zosyn 3.375 g IV piggyback q.8 hours. 2. Aggressive IV fluid replacement. 3. Depending upon the clinical response as well as cultures, we will adjust her medications further if needed. Thank you for this consultation. We will follow this patient along with you. MMODL / IJN: [id number] /
[2017-12-01] MEDS ORDERED: PROPOFOL 100 ML IV ONE (22:30)
--- NOTE | 2017-12-01 22:32 | P.OP ---
Date of Procedure: 12/01/17 Procedure(s) Performed: PREOPERATIVE DIAGNOSIS: Septic shock with suspected ischemic bowel POSTOPERATIVE DIAGNOSIS: Intra-abdominal adhesions, ischemic colitis, ventral hernia 2 PROCEDURE: Diagnostic laparoscopy with lysis of adhesions, exploratory laparotomy with partial colectomy, mobilization splenic flexure, repair ventral hernia 2 SURGEON: Brennen EBL: 30 mL ANESTHESIA: Gen. COMPLICATIONS: None OPERATIVE PROCEDURE: Patient was placed in the operating table in the supine position. The patient's abdomen was prepped and draped in usual sterile fashion. A infraumbilical incision was made using a scalpel. The fascia was retracted anteriorly with [place] forceps. The Veress needle was advanced into the peritoneal cavity. The saline drop test was normal. Insufflation took place to 15 mmHg. The patient had adhesions both in the right lower quadrant and the left lower quadrant. The right lower quadrant adhesions appear to be related to previous appendectomy. The left lower quadrant adhesions were unclear in their nature. 2 additional right upper quadrant trochars were placed as well as 2 lateral left mid abdominal trochars. These adhesions were lysed sharply. The LigaSure was also used on one small section of the omentum. The small bowel that was visualized appeared normal however when we inspected the proximal descending colon and the distal transverse colon there were ischemic changes noted with evidence of full-thickness necrosis. It was decided at this point convert to an exporter laparotomy. A midline incision was created and later lengthened superiorly to incorporate the 2 ventral hernias that were present in the epigastrium. Entrance into the abdominal cavity took place using electrocautery. The small bowel was run in its entirety and appeared normal. The cecum and ascending and proximal transverse colon appear normal. The sigmoid and rectum appeared visibly normal. There was some cloudy seropurulent fluid present within the peritoneal cavity. This was evacuated. The splenic flexure of the colon was mobilized using blunt dissection and electrocautery. I chose a site to transect the colon in the mid transverse colon. No ischemic changes were evident externally at the site. Similarly the colon was divided at the distal descending colon using a linear 75 stapler as well. The abdomen was copiously irrigated. A portion of the omentum was removed. The hernia sac and the pre-peroneal fat was excised. There was a second small defect in the fascia superior to the larger defect in the epigastrium that was also incorporated into the fascial closure. The larger of the 2 defects measured 1.5 cm and the smaller less than 1 cm. The patient was taking steroids over the past several days with a bolus of steroids given to her on Wednesday because of a insect bite. The patient has bad COPD and I decided to place 2 horizontal retention sutures. These were #5 Ethibond sutures. A semicircular incision was made in the right mid abdomen. Dissection through the subcutaneous fat and fascia took place using electrocautery. The ostomy site was dilated digitally. The proximal staple line was brought out through this site and sutured circumferentially to the fascia and peritoneum using interrupted 3-0 GI silk sutures. The midline fascia was then reapproximated using 2 separate running double-stranded #1 PDS sutures. The subcutaneous tissues were closed using 3-0 Vicryl sutures. The skin was closed using sumaya. The retention sutures were tied down over 18- Cymro red rubber catheters. The ostomy was then matured in a zuni fashion. The mucosa of the colon in that location did have some ischemic changes present as well although there was bleeding from the staple line and the serosa remained quite viable in appearance. An ostomy appliance was applied. Sterile dressings to the midline incision were applied. DISPOSITION: Stable to recovery room
[2017-12-01 22:44] LABS: Glucose,Whole Blood 105 mg/dL (75-99)
[2017-12-01 22:44] LABS: Glucose,Whole Blood 66 mg/dL (75-99)
[2017-12-01] MEDS: PROPOFOL 1,000 MG in EMPTY BAG 1 BAG IV SCH (22:45)
--- NOTE | 2017-12-01 22:59 | XR ---
EXAMINATION TYPE: XR chest 1V portable DATE OF EXAM: 12/01/2017 COMPARISON: Today HISTORY: Check line placement TECHNIQUE: Single frontal view of the chest is obtained. FINDINGS: Endotracheal tube is 4.5 cm from the génesis. Right jugular catheter has tip over the right atrium. There are chest leads. There is left axillary pacemaker with the lead tip in the right ventr icle. There is no heart failure. Lungs are clear of consolidation. IMPRESSION: Tubing in fairly good position. No heart failure. No significant change.
[2017-12-01 23:35] LABS: ABG Base Excess -9.3 mmol/L; ABG HCO3 18 mmol/L (21-25); ABG PCO2 41 mmHg (35-45); ABG PH 7.25 (7.35-7.45); ABG PO2 292 mmHg (83-108); ABG TCO2 19 mmol/L (19-24)
[2017-12-02] MEDS ORDERED: NOREPINEPHRIN 16 MG-0.9%NS PMX 16 MG/250 ML ML IV SCH (00:15)
--- NOTE | 2017-12-02 00:32 | P.HPIM ---
History of Present Illness H&P Date: 12/01/17 Chief Complaint: Abdominal pain Patient is 77-year-old female with a known history of hypertension, hypothyroidism, third-degree heart block with pacemaker, colitis/stomach ulcer in the 1970s, migraine headache and COPD and multiple other medical problems came to ER with complaints of abdominal discomfort mainly in the lower abdomen and shakiness. Denied any fever. Denied any cough or sputum production. Patient does have chronic cough but no recent changes. No diarrhea. No headache or dizziness. No chest pain or shortness of breath. Denied any hematuria or dysuria. Patient says her symptoms began last night around 9:30 PM. Symptoms are getting worse and patient presently ER for further evaluation. Patient was hypotensive in the ER and was associated with normal saline 4 L and was started on levofed drip. Patient was transferred to MICU for intensive care. Patient has leukocytosis 14.4, lactic acid 5.5 and slightly abnormal urine sample. Patient was started on antibiotics and general surgery was consulted for possible ischemic colon. Chest x-ray diffuse interstitial pattern. Correlate for mild congestion. CT of the abdominal pelvis showed perinephric stranding on the left with bilateral perinephric fluid. Consider pyelonephritis. No obstruction is evident. Diverticulosis without acute diverticulitis of the sigmoid colon. pancreas prominence of the antiemetic duct Within the body and tail of the pancreas. Follow-up ERCP could be considered. Correlate for acute pancreatitis. Review of Systems Constitutional: Patient denies any fever. Does have chills . No generalized weakness or weight loss. Abdomen: Patient denied nausea vomiting and diarrhea and patient does have lower abdominal pain. Cardiovascular: Patient denies any chest pain or short of breath no palpitations. Respiratory: patient denied any cough is from production. No shortness of breath Neurologic: Patient denied any numbness or tingling headache. Musculoskeletal: Patient denies any complaints of joint swelling or deformity. Skin: Negative Psychiatric: Negative Endocrine: No heat or cold intolerance. No recent weight gain. Genitourinary: No dysuria or hematuria. All other 14 point ROS negative except the above Past Medical History Past Medical History: Asthma, Cancer, COPD, GI Bleed, Hypertension, Musculoskeletal Disorder, Osteoarthritis (OA), Thyroid Disorder Additional Past Medical History / Comment(s): Chronic bronchitis, 3rd degree heart block with pacemaker, arthritis L foot and bilateral knees, colitis/ stomach ulcer in the 1970s/lower GI bleed, hypothyroid, past migraines as a teen , past cellulitis on arms, occasional vertigo, skin cancer with removal. History of Any Multi-Drug Resistant Organisms: None Reported Past Surgical History: Appendectomy, Hernia Repair, Hysterectomy, Joint Replacement, Orthopedic Surgery, Pacemaker Additional Past Surgical History / Comment(s): TTT, loop recorder, pacemaker, skin cander removal L cheek/skin graft, inguinal hernia repairs x3, total L knee arthroplasty, bilateral knee arthroscopies, partial thyroidectomy, pain clinic procedures (cervical), bilateral lasik eye surgery for vision correction. Past Anesthesia/Blood Transfusion Reactions: No Reported Reaction Type of Cardiac Device: Permanent Pacemaker Device Placement Date:: 2015 Smoking Status: Light tobacco smoker - Past Family History Son(s) Family Medical History: Cancer Additional Family Medical History / Comment(s): TESTICLE Daughter(s) Family Medical History: Cancer Additional Family Medical History / Comment(s): OVARIAN CANCER Mother Family Medical History: Cancer Additional Family Medical History / Comment(s): STOMACH CANCER Father Family Medical History: No Reported History Additional Family Medical History / Comment(s): Father was healthy Medications and Allergies Home Medications Medication Instructions Recorded Confirmed Type Levothyroxine Sodium [Synthroid] 125 mcg PO DAILY 12/26/13 12/01/17 History Losartan/Hydrochlorothiazide 1 tab PO DAILY 08/29/15 12/01/17 History [Hyzaar 100-25 Tablet] Ibuprofen [Motrin] 800 mg PO TID PRN 12/01/17 12/01/17 History Promethaz-Cod 6.25-10 mg/5 ml 5 ml PO Q8H PRN 12/01/17 12/01/17 History [Phenergan with Codeine] predniSONE 40 mg PO AC-BRKFST 12/01/17 12/01/17 History Allergies Allergy/AdvReac Type Severity Reaction Status Date / Time hydrocodone Allergy Nausea & Verified 12/01/17 10:50 Vomiting hydrocodone bitartrate Allergy Nausea & Verified 12/01/17 10:50 [From Vicodin] Vomiting acetaminophen [From [place]] AdvReac Nausea & Verified 12/01/17 10:50 Vomiting grass,mold,dust,cats,trees Allergy Unknown Uncoded 11/12/15 11:50 tape Allergy skin Uncoded 11/12/15 11:22 blisters, itching Physical Exam Vitals: Vital Signs Temp Pulse Resp BP Pulse Ox 12/01/17 15:48 88 16 12/01/17 14:00 98.1 F 102 H 24 111/53 96 12/01/17 13:45 107 H 29 H 100/56 96 12/01/17 13:32 97 12/01/17 13:05 93 20 122/56 90 L 12/01/17 11:40 89 18 96/53 93 L 12/01/17 10:21 77 16 71/49 93 L 12/01/17 09:52 83 16 72/47 92 L 12/01/17 09:26 84 16 79/41 92 L 12/01/17 08:50 73 16 66/43 92 L 12/01/17 08:25 86/47 12/01/17 08:23 98.9 F 80 18 90 L Intake and Output 12/01/17 12/01/17 12/01/17 06:59 14:59 22:59 Output Total 90 Balance -90 Output: Urine 90 Other: Weight 77.111 kg PHYSICAL EXAMINATION: Patient is lying in the bed comfortably, no acute distress, awake alert and oriented.. HEENT: Normocephalic. Neck is supple. Pupils reactive. Nostrils clear. Oral cavity is moist. Ears reveal no drainage. Neck reveals no JVD, carotid bruits, or thyromegaly. CHEST EXAMINATION: Trachea is central. Symmetrical expansion. Lung gutierrez clear to auscultation and percussion. CARDIAC: Normal S1, S2 with no gallops. No murmurs ABDOMEN: Soft. Tenderness of the lower abdomen both quadrants. Bowel sounds normal. No organomegaly. No abdominal bruits. Extremities: reveal no edema. No clubbing or cyanosis Neurologically awake, alert, oriented x3 with well-coordinated movements. No focal deficits noted Skin: No rash or skin lesions. Psychiatric: Coperative. Nonsuicidal Musculoskeletal: No joint swelling or deformity. Normal range of motion. Results CBC & Chem 7: 12/01/17 08:20 12/01/17 17:59 Labs: Abnormal Lab Results - Last 24 Hours (Table) 12/01/17 12/01/17 12/01/17 Range/Units 08:20 08:20 08:20 WBC 14.4 H (3.8-10.6) k/uL Neutrophils # (Manual) 13.20 H (1.3-7.7) k/uL Lymphocytes # (Manual) 0.86 L (1.0-4.8) k/uL Metamyelocytes # (Man) 0.14 H (0) k/uL INR (<1.2) Sodium 128 L (137-145) mmol/L Chloride 95 L (98-107) mmol/L BUN 19 H (7-17) mg/dL Creatinine 1.21 H (0.52-1.04) mg/dL Plasma Lactic Acid Bryn (0.7-2.0) mmol/L AST 70 H (14-36) U/L ALT 65 H (9-52) U/L Alkaline Phosphatase 180 H (38-126) U/L Troponin I 0.048 H* (0.000-0.034) ng/mL Total Protein 5.0 L (6.3-8.2) g/dL Albumin 2.7 L (3.5-5.0) g/dL Urine Appearance (Clear) Urine Protein (Negative) Urine Glucose (UA) (Negative) Urine Bilirubin (Negative) Ur Leukocyte Esterase (Negative) Urine RBC (0-5) /hpf Urine WBC (0-5) /hpf Ur Squamous Epith Cells (0-4) /hpf Urine Bacteria (None) /hpf Urine Mucus (None) /hpf 12/01/17 12/01/17 12/01/17 Range/Units 08:20 08:20 10:18 WBC (3.8-10.6) k/uL Neutrophils # (Manual) (1.3-7.7) k/uL Lymphocytes # (Manual) (1.0-4.8) k/uL Metamyelocytes # (Man) (0) k/uL INR 1.2 H (<1.2) Sodium (137-145) mmol/L Chloride (98-107) mmol/L BUN (7-17) mg/dL Creatinine (0.52-1.04) mg/dL Plasma Lactic Acid Bryn 5.5 H* (0.7-2.0) mmol/L AST (14-36) U/L ALT (9-52) U/L Alkaline Phosphatase (38-126) U/L Troponin I (0.000-0.034) ng/mL Total Protein (6.3-8.2) g/dL Albumin (3.5-5.0) g/dL Urine Appearance Turbid H (Clear) Urine Protein 3+ H (Negative) Urine Glucose (UA) Trace H (Negative) Urine Bilirubin 1+ H (Negative) Ur Leukocyte Esterase Moderate H (Negative) Urine RBC 16 H (0-5) /hpf Urine WBC 8 H (0-5) /hpf Ur Squamous Epith Cells 9 H (0-4) /hpf Urine Bacteria Rare H (None) /hpf Urine Mucus Moderate H (None) /hpf 12/01/17 Range/Units 12:41 WBC (3.8-10.6) k/uL Neutrophils # (Manual) (1.3-7.7) k/uL Lymphocytes # (Manual) (1.0-4.8) k/uL Metamyelocytes # (Man) (0) k/uL INR (<1.2) Sodium (137-145) mmol/L Chloride (98-107) mmol/L BUN (7-17) mg/dL Creatinine (0.52-1.04) mg/dL Plasma Lactic Acid Bryn 7.0 H* (0.7-2.0) mmol/L AST (14-36) U/L ALT (9-52) U/L Alkaline Phosphatase (38-126) U/L Troponin I (0.000-0.034) ng/mL Total Protein (6.3-8.2) g/dL Albumin (3.5-5.0) g/dL Urine Appearance (Clear) Urine Protein (Negative) Urine Glucose (UA) (Negative) Urine Bilirubin (Negative) Ur Leukocyte Esterase (Negative) Urine RBC (0-5) /hpf Urine WBC (0-5) /hpf Ur Squamous Epith Cells (0-4) /hpf Urine Bacteria (None) /hpf Urine Mucus (None) /hpf Microbiology - Last 24 Hours (Table) 12/01/17 10:18 Urine Culture - Preliminary Urine,Voided Thrombosis Risk Factor Assmnt - DVT/VTE Prophylaxis DVT/VTE Prophylaxis: Pharmacologic Prophylaxis ordered - Choose All That Apply Any of the Below Risk Factors Present?: Yes Each Factor Represents 1 point: Abnormal pulmonary function (COPD), Sepsis (< 1month) Other Risk Factors: Yes Each Risk Factor Represents 2 Points: Malignancy Each Risk Factor Represents 3 Points: Age 75 years or older Other congenital or acquired thrombophilia - If yes, enter type in comment: No Thrombosis Risk Factor Assessment Total Risk Factor Score: 7 Thrombosis Risk Factor Assessment Level: High Risk Assessment and Plan Assessment: Septic shock likely due to pyelonephritis with possible ischemic colon with lactic acidosis Leukocytosis, hypotension and tachycardia and lactic acidosis Currently everyday smoker Hypertension Osteoarthritis Hypothyroidism Hypovolemic hyponatremia COPD stable History of skin cancer Third-degree heart block with pacemaker History of colitis/stomach ulcer in 1970 History of GI bleed DVT prophylaxis Plan: Patient be continued on broad-spectrum antibiotics in the form of Zosyn. Continue the IV fluids and pressor support pulmonary is on board. Gen. surgery was consulted. Continue to follow closely and further recommendations based on the clinical course. Prognosis is guarded. Time with Patient: Greater than 30
[2017-12-02] MEDS: SODIUM CHLORIDE 0.9% 1,000 ML IV SCH ×5 (00:46→21:01)
[2017-12-02] MEDS: PIPERACILLIN-TAZOBACTAM 3.375 GM in DEXTROSE/WATER 1 50ML.BAG IVPB SCH ×4 (00:48→23:41)
[2017-12-02] MEDS: NOREPINEPHRINE 16 MG in DEXTROSE 5% IN WATER 250 ML IV SCH ×8 (01:37→20:42)
[2017-12-02 04:25] LABS: Albumin 2.3 g/dL (3.5-5.0); Calcium 6.9 mg/dL (8.4-10.2); Magnesium 2.3 mg/dL (1.6-2.3); Phosphorus 4.2 mg/dL (2.5-4.5); Potassium 3.8 mmol/L (3.5-5.1); Total Protein 4.7 g/dL (6.3-8.2)
[2017-12-02 04:39] LABS: HCT 41.1 % (34.0-46.0); HGB 13.8 gm/dL (11.4-16.0); MCHC 33.6 g/dL (31.0-37.0); MCV 92.2 fL (80.0-100.0); Mean Platelet Volume 7.7; Platelet Count 173 k/uL (150-450); RBC 4.46 m/uL (3.80-5.40)
[2017-12-02 04:41] LABS: WBC 40.8 k/uL (3.8-10.6)
[2017-12-02 05:11] LABS: Band Neutrophils % 11 %; Lymphocytes # (M) 0.82 k/uL (1.0-4.8); Monocytes # (M) 7.34 k/uL (0-1.0); Neutrophils % (M) 69 %; Nucleated Red Blood Cells 0 /100 WBC (0-0); Total Cells Counted 200; Toxic Vacuolation Present
[2017-12-02 05:21] LABS: ABG Base Excess -10.2 mmol/L; ABG HCO3 17 mmol/L (21-25); ABG Oxygen Saturation 98.3 % (94-97); ABG PCO2 37 mmHg (35-45); ABG PH 7.27 (7.35-7.45); ABG PO2 102 mmHg (83-108); ABG TCO2 18 mmol/L (19-24)
[2017-12-02] MEDS: IPRATROPIUM-ALBUTEROL 3 ML NEB INHALATION SCH ×4 (07:27→19:49)
--- NOTE | 2017-12-02 07:30 | P.PN ---
Subjective Progress Note Date: 12/02/17 Principal diagnosis: Abdominal pain/sepsis Progress note dated 12/02/2017 This is a 77-year-old female who we saw yesterday in consultation. She came up from the ER with a picture of sepsis. We weren't sure where the infection was coming from. Based on CAT scan and urinalysis, thought maybe she had a bladder infection or a pyelonephritis. She was also having lower abdominal pain. I spoke to the surgeon yesterday. He decided that he was going to take the patient for an exploratory laparotomy. The patient is postop day #1, status post expiratory laparotomy, lysis of adhesions, partial colectomy with colostomy and ventral hernia repair 2. The patient is currently on the mechanical ventilator on the volume assist control mode. Rate is 16, tidal volume is 550, FiO2 is 40%, and PEEP is 5. Arterial blood gases show a PaO2 of 102 a PaCO2 is 37 and a pH 7.27. This is consistent with metabolic acidosis. The patient is on propofol at 15 mics per kilogram per minute, norepinephrine at 35 mics per minute and a saline IV at 150 an hour. NG tube is in place. Thus far, microbiology is negative. White blood count is 40.8, hemoglobin 13.8 , hematocrit 41.1 and platelet count 173,000. Sodium 1:30 potassium 3.8 chloride 105 CO2 17 anion gap is a BUN/creatinine were 29 and 1.60. Liver function tests are elevated as manifested by an elevated AST and ALT and alkaline phosphatase. Chest x-rays consistent with some mild bibasilar atelectasis and a small left-sided pleural effusion. Objective - Vital Signs Vital signs: Vital Signs Temp 97.6 F 12/02/17 04:00 Pulse 87 12/02/17 07:00 Resp 20 12/02/17 07:00 BP 100/49 12/02/17 06:15 Pulse Ox 100 12/02/17 07:00 Intake & Output 12/01/17 12/02/17 12/02/17 18:59 06:59 18:59 Intake Total 934.674 4022.473 Output Total 230 345 Balance -72.375 1860.473 Weight 77.111 kg 82.8 kg Intake: IV 2100.0 Piperacillin-Tazobactam 3 50.0 .375 gm In Dextrose/Water 1 50ml.bag @ 12.5 mls/hr IVPB Q8HR [facility] Rx#: [id number] Sodium Chloride 0.9% 1, 1350 000 ml @ 150 mls/hr IV . Q6H40M [facility] Rx#:[id number] Intake, IV Titration 157.625 105.473 Amount Norepinephrine 16 mg In 65.388 Dextrose 5% in Water 250 ml @ Titrate IV .Q0M [facility] Rx#:[id number] Norepinephrine 4 mg In 157.625 Dextrose 5% in Water 250 ml @ Titrate IV .Q0M [facility] Rx#:[id number] Propofol 1,000 mg In 40.085 Empty Bag 1 bag @ Titrate IV .Q0M [facility] Rx#: [id number] Output: Urine 230 315 Estimated Blood Loss 30 Other: Voiding Method Indwelling Catheter Indwelling Catheter ABP, PAP, CO, CI - Last Documented Arterial Blood Pressure 109/57 - Exam No acute distress, sedated, with a orally placed endotracheal tube and a nasally placed NG tube. HEENT examination is grossly unremarkable. Mucous membranes are moist. Neck supple. Full range of motion. No adenopathy thyromegaly or neck vein distention. Cardiovascular examination reveals regular rhythm rate. S1-S2 normal. No S3 or S4. No discernible murmur noted. Lungs reveal bilaterally equal breath sounds. Some bilateral coarse rhonchi are noted. No wheezes or crackles. Breath sounds equal bilaterally. Abdomen soft without bowel sounds. No masses. No tenderness. Fresh colostomy is noted. Extremities are intact. No cyanosis clubbing or edema. Skin is without rash or lesion. Neurologic examination could not be adequately assessed. - Labs CBC & Chem 7: 12/02/17 04:00 12/02/17 04:00 Labs: Abnormal Lab Results - Last 24 Hours (Table) 12/01/17 12/01/17 12/01/17 Range/Units 08:20 08:20 08:20 WBC 14.4 H (3.8-10.6) k/uL Neutrophils # (Manual) 13.20 H (1.3-7.7) k/uL Lymphocytes # (Manual) 0.86 L (1.0-4.8) k/uL Monocytes # (Manual) (0-1.0) k/uL Metamyelocytes # (Man) 0.14 H (0) k/uL INR (<1.2) ABG pH (7.35-7.45) ABG pO2 (83-108) mmHg ABG HCO3 (21-25) mmol/L ABG Total CO2 (19-24) mmol/L ABG O2 Saturation (94-97) % Sodium 128 L (137-145) mmol/L Chloride 95 L (98-107) mmol/L Carbon Dioxide (22-30) mmol/L BUN 19 H (7-17) mg/dL Creatinine 1.21 H (0.52-1.04) mg/dL Glucose (74-99) mg/dL POC Glucose (mg/dL) (75-99) mg/dL Plasma Lactic Acid Bryn (0.7-2.0) mmol/L Calcium (8.4-10.2) mg/dL AST 70 H (14-36) U/L ALT 65 H (9-52) U/L Alkaline Phosphatase 180 H (38-126) U/L Troponin I 0.048 H* (0.000-0.034) ng/mL Total Protein 5.0 L (6.3-8.2) g/dL Albumin 2.7 L (3.5-5.0) g/dL Urine Appearance (Clear) Urine Protein (Negative) Urine Glucose (UA) (Negative) Urine Bilirubin (Negative) Ur Leukocyte Esterase (Negative) Urine RBC (0-5) /hpf Urine WBC (0-5) /hpf Ur Squamous Epith Cells (0-4) /hpf Urine Bacteria (None) /hpf Urine Mucus (None) /hpf 12/01/17 12/01/17 12/01/17 Range/Units 08:20 08:20 10:18 WBC (3.8-10.6) k/uL Neutrophils # (Manual) (1.3-7.7) k/uL Lymphocytes # (Manual) (1.0-4.8) k/uL Monocytes # (Manual) (0-1.0) k/uL Metamyelocytes # (Man) (0) k/uL INR 1.2 H (<1.2) ABG pH (7.35-7.45) ABG pO2 (83-108) mmHg ABG HCO3 (21-25) mmol/L ABG Total CO2 (19-24) mmol/L ABG O2 Saturation (94-97) % Sodium (137-145) mmol/L Chloride (98-107) mmol/L Carbon Dioxide (22-30) mmol/L BUN (7-17) mg/dL Creatinine (0.52-1.04) mg/dL Glucose (74-99) mg/dL POC Glucose (mg/dL) (75-99) mg/dL Plasma Lactic Acid Bryn 5.5 H* (0.7-2.0) mmol/L Calcium (8.4-10.2) mg/dL AST (14-36) U/L ALT (9-52) U/L Alkaline Phosphatase (38-126) U/L Troponin I (0.000-0.034) ng/mL Total Protein (6.3-8.2) g/dL Albumin (3.5-5.0) g/dL Urine Appearance Turbid H (Clear) Urine Protein 3+ H (Negative) Urine Glucose (UA) Trace H (Negative) Urine Bilirubin 1+ H (Negative) Ur Leukocyte Esterase Moderate H (Negative) Urine RBC 16 H (0-5) /hpf Urine WBC 8 H (0-5) /hpf Ur Squamous Epith Cells 9 H (0-4) /hpf Urine Bacteria Rare H (None) /hpf Urine Mucus Moderate H (None) /hpf 12/01/17 12/01/17 12/01/17 Range/Units 12:41 17:58 17:59 WBC (3.8-10.6) k/uL Neutrophils # (Manual) (1.3-7.7) k/uL Lymphocytes # (Manual) (1.0-4.8) k/uL Monocytes # (Manual) (0-1.0) k/uL Metamyelocytes # (Man) (0) k/uL INR (<1.2) ABG pH (7.35-7.45) ABG pO2 (83-108) mmHg ABG HCO3 (21-25) mmol/L ABG Total CO2 (19-24) mmol/L ABG O2 Saturation (94-97) % Sodium 130 L (137-145) mmol/L Chloride (98-107) mmol/L Carbon Dioxide 21 L (22-30) mmol/L BUN 24 H (7-17) mg/dL Creatinine 1.50 H (0.52-1.04) mg/dL Glucose (74-99) mg/dL POC Glucose (mg/dL) (75-99) mg/dL Plasma Lactic Acid Bryn 7.0 H* 2.9 H* (0.7-2.0) mmol/L Calcium 7.2 L (8.4-10.2) mg/dL AST (14-36) U/L ALT (9-52) U/L Alkaline Phosphatase (38-126) U/L Troponin I (0.000-0.034) ng/mL Total Protein (6.3-8.2) g/dL Albumin (3.5-5.0) g/dL Urine Appearance (Clear) Urine Protein (Negative) Urine Glucose (UA) (Negative) Urine Bilirubin (Negative) Ur Leukocyte Esterase (Negative) Urine RBC (0-5) /hpf Urine WBC (0-5) /hpf Ur Squamous Epith Cells (0-4) /hpf Urine Bacteria (None) /hpf Urine Mucus (None) /hpf 12/01/17 12/01/17 12/01/17 Range/Units 22:39 22:42 23:30 WBC (3.8-10.6) k/uL Neutrophils # (Manual) (1.3-7.7) k/uL Lymphocytes # (Manual) (1.0-4.8) k/uL Monocytes # (Manual) (0-1.0) k/uL Metamyelocytes # (Man) (0) k/uL INR (<1.2) ABG pH 7.25 L (7.35-7.45) ABG pO2 292 H (83-108) mmHg ABG HCO3 18 L (21-25) mmol/L ABG Total CO2 (19-24) mmol/L ABG O2 Saturation 100.0 H (94-97) % Sodium (137-145) mmol/L Chloride (98-107) mmol/L Carbon Dioxide (22-30) mmol/L BUN (7-17) mg/dL Creatinine (0.52-1.04) mg/dL Glucose (74-99) mg/dL POC Glucose (mg/dL) 66 L 105 H (75-99) mg/dL Plasma Lactic Acid Bryn (0.7-2.0) mmol/L Calcium (8.4-10.2) mg/dL AST (14-36) U/L ALT (9-52) U/L Alkaline Phosphatase (38-126) U/L Troponin I (0.000-0.034) ng/mL Total Protein (6.3-8.2) g/dL Albumin (3.5-5.0) g/dL Urine Appearance (Clear) Urine Protein (Negative) Urine Glucose (UA) (Negative) Urine Bilirubin (Negative) Ur Leukocyte Esterase (Negative) Urine RBC (0-5) /hpf Urine WBC (0-5) /hpf Ur Squamous Epith Cells (0-4) /hpf Urine Bacteria (None) /hpf Urine Mucus (None) /hpf 12/02/17 12/02/17 12/02/17 Range/Units 04:00 04:00 05:20 WBC 40.8 H* (3.8-10.6) k/uL Neutrophils # (Manual) 32.60 H (1.3-7.7) k/uL Lymphocytes # (Manual) 0.82 L (1.0-4.8) k/uL Monocytes # (Manual) 7.34 H (0-1.0) k/uL Metamyelocytes # (Man) (0) k/uL INR (<1.2) ABG pH 7.27 L (7.35-7.45) ABG pO2 (83-108) mmHg ABG HCO3 17 L (21-25) mmol/L ABG Total CO2 18 L (19-24) mmol/L ABG O2 Saturation 98.3 H (94-97) % Sodium 130 L (137-145) mmol/L Chloride (98-107) mmol/L Carbon Dioxide 17 L (22-30) mmol/L BUN 29 H (7-17) mg/dL Creatinine 1.60 H (0.52-1.04) mg/dL Glucose 107 H (74-99) mg/dL POC Glucose (mg/dL) (75-99) mg/dL Plasma Lactic Acid Bryn (0.7-2.0) mmol/L Calcium 6.9 L (8.4-10.2) mg/dL AST 106 H (14-36) U/L ALT 89 H (9-52) U/L Alkaline Phosphatase 267 H (38-126) U/L Troponin I (0.000-0.034) ng/mL Total Protein 4.7 L (6.3-8.2) g/dL Albumin 2.3 L (3.5-5.0) g/dL Urine Appearance (Clear) Urine Protein (Negative) Urine Glucose (UA) (Negative) Urine Bilirubin (Negative) Ur Leukocyte Esterase (Negative) Urine RBC (0-5) /hpf Urine WBC (0-5) /hpf Ur Squamous Epith Cells (0-4) /hpf Urine Bacteria (None) /hpf Urine Mucus (None) /hpf Microbiology - Last 24 Hours (Table) 12/01/17 10:18 Urine Culture - Preliminary Urine,Voided Assessment and Plan Assessment: Assessment Postop day #1, status post exploratory laparotomy with lysis of adhesions, partial colectomy, colostomy and ventral hernia repair 2. Postoperative ventilator management Septic shock, with a likely source being either the GI or tract. Hypotension, secondary to sepsis Lactic acidosis Hypoalbuminemia History of skin cancer History of hypertension History of DJD History of hypothyroidism Leukocytosis Mild hyponatremia Plan: Plan dated 12/01/2017 The patient is currently receiving adequate fluid resuscitation. She received some Unasyn in the emergency department has been put on Zosyn. The patient's urine does look like it probably is infected. The leukocyte esterase was positive. There was some white blood cells and bacteria as well. The computed tomography scan was consistent with possible pyelonephritis. The patient should get adequate fluid resuscitation and should continue on norepinephrine to maintain a mean arterial pressure of about 65 mmHg. Additional recommendations and suggestions are forthcoming. Typically these patients will turn around rather quickly with appropriate antibiotics and maintenance of blood pressure. Additional recommendations and suggestions are forthcoming. Plan dated 12/02/2017 The patient will remain on the mechanical ventilator. She is requiring a large amount of norepinephrine to maintain blood pressures. We will make some changes. We'll increase her rate from 16 to 22 and we decreased the tidal volume of 550 to 400 mL. The patient will have all her labs x-rays and medications reviewed. We'll make sure she is on good antibiotics. An art line was placed in the operating room yesterday. Prognosis is guarded. We'll continue to follow. Hopefully her sepsis will improve and her blood pressure will improve and will be able to wean her norepinephrine. Additional recommendations and suggestions are forthcoming. Prognosis is guarded. Critical care time 36 minutes Time with Patient: Greater than 30
[2017-12-02] MEDS ORDERED: Potassium Replacement Protocol 1 EACH MISC MISCELLANE PRN (07:31)
[2017-12-02] MEDS: HYDROmorphone 1 MG/ML 1 ML SYRINGE IVP PRN (07:38)
[2017-12-02] MEDS: POTASSIUM CHLORIDE 10 MEQ in WATER FOR INJECTION 1 100ML.BAG IVPB SCH ×2 (08:16→11:15)
[2017-12-02] MEDS: PANTOPRAZOLE 40 MG/10 ML VIAL IV SCH (08:17)
[2017-12-02] MEDS: CHLORHEXIDINE GLUCONATE 15 ML CUP MUCOUS MEM SCH ×2 (08:17→20:43)
--- NOTE | 2017-12-02 08:24 | XR ---
EXAMINATION TYPE: XR chest 1V portable DATE OF EXAM: 12/02/2017 COMPARISON: December 01, 2017 HISTORY: SOB, Follow Up FINDINGS: Indwelling tubes and catheters are unchanged. No change in bibasilar opacities. Stable appearance of the cardio-mediastinal structures at this time. IMPRESSION: 1. Stable portable chest. Clinical correlation and follow up until resolution is recommended.
[2017-12-02] MEDS ORDERED: SODIUM CHLORIDE 0.9% 1,000 ML IV ONE ×2 (08:25→14:32)
[2017-12-02] MEDS: metroNIDAZOLE-NS PMX 500 MG in SALINE 1 100ML.BAG IVPB SCH ×3 (11:21→23:41)
[2017-12-02 11:44] LABS: Glucose,Whole Blood 122 mg/dL (75-99)
[2017-12-02] MEDS ORDERED: VANCOMYCIN IV PER PHARMACY 1 EACH MISC MISCELLANE PRN (13:37)
[2017-12-02] MEDS: SODIUM CHLORIDE 0.9% 99 ML with VASOPRESSIN 20 UNIT IV SCH ×4 (14:35→23:34)
[2017-12-02] MEDS: VANCOMYCIN 1,500 MG in SODIUM CHLORIDE 0.9% 250 ML IVPB SCH (14:36)
--- NOTE | 2017-12-02 14:57 | PN ---
PROGRESS NOTE DATE OF SERVICE: 12/02/2017 REASON FOR FOLLOWUP: Sepsis and septic shock abdominal source. INTERVAL HISTORY: The patient was taken to the OR last night. The patient did have a diagnostic laparoscopy. She noticed to have ischemic bowel, status post lysis of adhesion, resection and went on to have a hernia repair. Patient is currently on the vent requiring high pressors followed with Levophed currently at 50 mcg per the RN. Patient is on the vent, sedated. FiO2 currently at 40% history. Fever she has recorded yesterday but not today. Most of the impression from the nursing staff. No family member at the bedside. REVIEW OF SYSTEMS: Could not be reliably obtained. PAST MEDICAL AND SURGICAL HISTORY: Unchanged. Medication reviewed. PHYSICAL EXAMINATION: Blood pressure is 109/48 with a pulse of 79, temperature 98, she is 99% ON 40% FiO2. General description is an elderly female, lying in bed in no distress. HEENT EXAMINATION: No pallor or scleral icterus. Patient is orally intubated. LUNGS: Unlabored breathing, clear to auscultation anteriorly. HEART: S1, S2. Regular rate and rhythm. ABDOMEN: Soft, non-distended, no guarding or rigidity. EXTREMITIES: No edema of the feet. SKIN EXAMINATION: No rash or mass palpable. NEUROLOGICAL: The patient is currently sedated on the vent. LABS: Hemoglobin is 13, white count is up to 40.8 with a BUN of 29, creatinine 1.60. Liver enzymes are elevated. Urine showing a group D Enterococcus. Blood culture so far pending. DIAGNOSTIC IMPRESSION AND PLAN: Patient with sepsis and septic shock secondary to ischemic bowel, status post laparotomy, hernia. No clear recommendation of any spillage of bowel noted in the abdominal area. Urine showing Enterococcus species. She is currently on Zosyn and Flagyl. Vanco will be added while watching her clinical course and cultures closely. Overall prognosis remains to be guarded. Continue supportive care. MMODL / IJN: [id number] /
--- NOTE | 2017-12-02 15:38 | P.PN ---
Subjective Progress Note Date: 12/02/17 Principal diagnosis: Ischemic colitis Since surgery last night the patient has required increasing pressors to maintain her blood pressure. Urine output has decreased overall. The patient has received multiple fluid boluses during that time. She is being followed by critical care and infectious disease actively. She is lightly sedated on the ventilator. She is demonstrating some degree of ischemia to her toes and fingers. Ostomy apparently was darker earlier this morning but per the nursing staff it is improved and appears pink at this time. White blood cell count elevated at 40. PH 7.27. Lactic acid is improved at 1.4. Objective - Vital Signs Vital signs: Vital Signs Temp 98.3 F 12/02/17 12:00 Pulse 82 12/02/17 15:28 Resp 15 12/02/17 15:00 BP 107/46 12/02/17 15:00 Pulse Ox 99 12/02/17 15:00 Intake & Output 12/01/17 12/02/17 12/02/17 18:59 06:59 18:59 Intake Total 793.459 3732.473 2899.867 Output Total 230 345 120 Balance -72.375 5091.686 7865.867 Weight 77.111 kg 82.8 kg Intake: IV 2100.0 737.5 Piperacillin-Tazobactam 3 50.0 37.5 .375 gm In Dextrose/Water 1 50ml.bag @ 12.5 mls/hr IVPB Q8HR [facility] Rx#: [id number] Sodium Chloride 0.9% 1, 1350 700 000 ml @ 150 mls/hr IV . Q6H40M [facility] Rx#:[id number] Intake, IV Titration 157.625 130.813 2169.367 Amount Norepinephrin 16 mg-0.9% 157.8 Ns Pmx 16 mg In 250 ml @ Titrate IV .Q0M [facility] Rx#: [id number] Norepinephrine 16 mg In 65.388 428.267 Dextrose 5% in Water 250 ml @ Titrate IV .Q0M [facility] Rx#:[id number] Norepinephrine 4 mg In 157.625 Dextrose 5% in Water 250 ml @ Titrate IV .Q0M [facility] Rx#:[id number] Piperacillin-Tazobactam 3 12.5 .375 gm In Dextrose/Water 1 50ml.bag @ 12.5 mls/hr IVPB Q8HR [facility] Rx#: [id number] Potassium Chloride 10 meq 100 In Water For Injection 1 100ml.bag @ 100 mls/hr IVPB Q1H [facility] Rx#: [id number] Propofol 1,000 mg In 40.085 Empty Bag 1 bag @ Titrate IV .Q0M [facility] Rx#: [id number] Propofol 100 ml @ 0 mls/ 13.8 hr IV [facility] Rx#: [id number] Sodium Chloride 0.9% 1, 200 000 ml @ 100 mls/hr IV . Q10H [facility] Rx#:[id number] Sodium Chloride 0.9% 1, 100 000 ml @ 999 mls/hr IV . Q1H1M [facility] Rx#:[id number] Sodium Chloride 0.9% 1, 1000 000 ml @ 999 mls/hr IV . Q1H1M [facility] Rx#:[id number] Vancomycin 1,500 mg In 150 Sodium Chloride 0.9% 250 ml @ 125 mls/hr IVPB Q24HR [facility] Rx#:[id number] Output: Urine 230 315 120 Estimated Blood Loss 30 Other: Voiding Method Indwelling Catheter Indwelling Catheter Indwelling Catheter ABP, PAP, CO, CI - Last Documented Arterial Blood Pressure 102/49 - Exam Abdomen: Soft, mild distention, dressing clean and dry, ostomy pink with no output - Labs CBC & Chem 7: 12/02/17 04:00 12/02/17 04:00 Labs: Abnormal Lab Results - Last 24 Hours (Table) 12/01/17 12/01/17 12/01/17 Range/Units 17:58 17:59 22:39 WBC (3.8-10.6) k/uL Neutrophils # (Manual) (1.3-7.7) k/uL Lymphocytes # (Manual) (1.0-4.8) k/uL Monocytes # (Manual) (0-1.0) k/uL ABG pH (7.35-7.45) ABG pO2 (83-108) mmHg ABG HCO3 (21-25) mmol/L ABG Total CO2 (19-24) mmol/L ABG O2 Saturation (94-97) % Sodium 130 L (137-145) mmol/L Carbon Dioxide 21 L (22-30) mmol/L BUN 24 H (7-17) mg/dL Creatinine 1.50 H (0.52-1.04) mg/dL Glucose (74-99) mg/dL POC Glucose (mg/dL) 66 L (75-99) mg/dL Plasma Lactic Acid Bryn 2.9 H* (0.7-2.0) mmol/L Calcium 7.2 L (8.4-10.2) mg/dL AST (14-36) U/L ALT (9-52) U/L Alkaline Phosphatase (38-126) U/L Total Protein (6.3-8.2) g/dL Albumin (3.5-5.0) g/dL 12/01/17 12/01/17 12/02/17 Range/Units 22:42 23:30 04:00 WBC 40.8 H* (3.8-10.6) k/uL Neutrophils # (Manual) 32.60 H (1.3-7.7) k/uL Lymphocytes # (Manual) 0.82 L (1.0-4.8) k/uL Monocytes # (Manual) 7.34 H (0-1.0) k/uL ABG pH 7.25 L (7.35-7.45) ABG pO2 292 H (83-108) mmHg ABG HCO3 18 L (21-25) mmol/L ABG Total CO2 (19-24) mmol/L ABG O2 Saturation 100.0 H (94-97) % Sodium (137-145) mmol/L Carbon Dioxide (22-30) mmol/L BUN (7-17) mg/dL Creatinine (0.52-1.04) mg/dL Glucose (74-99) mg/dL POC Glucose (mg/dL) 105 H (75-99) mg/dL Plasma Lactic Acid Bryn (0.7-2.0) mmol/L Calcium (8.4-10.2) mg/dL AST (14-36) U/L ALT (9-52) U/L Alkaline Phosphatase (38-126) U/L Total Protein (6.3-8.2) g/dL Albumin (3.5-5.0) g/dL 12/02/17 12/02/17 12/02/17 Range/Units 04:00 05:20 11:40 WBC (3.8-10.6) k/uL Neutrophils # (Manual) (1.3-7.7) k/uL Lymphocytes # (Manual) (1.0-4.8) k/uL Monocytes # (Manual) (0-1.0) k/uL ABG pH 7.27 L (7.35-7.45) ABG pO2 (83-108) mmHg ABG HCO3 17 L (21-25) mmol/L ABG Total CO2 18 L (19-24) mmol/L ABG O2 Saturation 98.3 H (94-97) % Sodium 130 L (137-145) mmol/L Carbon Dioxide 17 L (22-30) mmol/L BUN 29 H (7-17) mg/dL Creatinine 1.60 H (0.52-1.04) mg/dL Glucose 107 H (74-99) mg/dL POC Glucose (mg/dL) 122 H (75-99) mg/dL Plasma Lactic Acid Bryn (0.7-2.0) mmol/L Calcium 6.9 L (8.4-10.2) mg/dL AST 106 H (14-36) U/L ALT 89 H (9-52) U/L Alkaline Phosphatase 267 H (38-126) U/L Total Protein 4.7 L (6.3-8.2) g/dL Albumin 2.3 L (3.5-5.0) g/dL Microbiology - Last 24 Hours (Table) 12/01/17 10:18 Urine Culture - Preliminary Urine,Voided Group D Enterococcus Assessment and Plan (1) Abdominal pain Narrative/Plan: Continue fluid resuscitation and wean pressors as able. Continue broad- spectrum IV antibiotics. The clinical scenario was discussed with the patient' s family. They plan to further discuss this with the critical care team as well. We'll follow closely. Current Visit: Yes Status: Acute Code(s): R10.9 - UNSPECIFIED ABDOMINAL PAIN SNOMED Code(s): 84429988
[2017-12-02 18:04] LABS: Glucose,Whole Blood 124 mg/dL (75-99)
[2017-12-02 18:49] LABS: ABG Base Excess -11.3 mmol/L; ABG HCO3 16 mmol/L (21-25); ABG Oxygen Saturation 96.8 % (94-97); ABG PCO2 39 mmHg (35-45); ABG PH 7.23 (7.35-7.45); ABG PO2 86 mmHg (83-108); ABG TCO2 17 mmol/L (19-24)
[2017-12-02 19:16] LABS: Hemoglobin A1C 5.8 % (4.0-6.0)
[2017-12-02] MEDS ORDERED: SODIUM BICARB 8.4% 50 ML SYR (1 MEQ/ML) IV ONE ×2 (21:08→21:09)
[2017-12-02] MEDS ORDERED: HYDROCORTISONE SUCCINATE 100 MG/2 ML VIAL IV STA (21:15)
[2017-12-02] MEDS: SODIUM CHLORIDE 0.9% 250 ML with HYDROCORTISONE SUCCINATE 250 MG IV SCH ×2 (22:25)
[2017-12-03 00:47] LABS: Glucose,Whole Blood 122 mg/dL (75-99)
[2017-12-03] MEDS: PROPOFOL 1,000 MG in EMPTY BAG 1 BAG IV SCH ×3 (00:51→19:50)
[2017-12-03] MEDS: NOREPINEPHRINE 16 MG in DEXTROSE 5% IN WATER 250 ML IV SCH ×2 (03:37)
[2017-12-03] MEDS: SODIUM CHLORIDE 0.9% 1,000 ML IV SCH (03:38)
[2017-12-03 04:31] LABS: HCT 38.5 % (34.0-46.0); HGB 12.6 gm/dL (11.4-16.0); MCH 30.3 pg (25.0-35.0); MCHC 32.8 g/dL (31.0-37.0); MCV 92.3 fL (80.0-100.0); Mean Platelet Volume 7.7; Platelet Count 104 k/uL (150-450); RBC 4.17 m/uL (3.80-5.40); RDW 14.4 % (11.5-15.5)
[2017-12-03 04:38] LABS: Magnesium 2.1 mg/dL (1.6-2.3); Phosphorus 4.7 mg/dL (2.5-4.5); Potassium 3.9 mmol/L (3.5-5.1)
[2017-12-03 04:40] LABS: WBC 46.9 k/uL (3.8-10.6)
[2017-12-03 04:55] LABS: ABG Base Excess -9.1 mmol/L; ABG HCO3 18 mmol/L (21-25); ABG Oxygen Saturation 98.4 % (94-97); ABG PCO2 39 mmHg (35-45); ABG PH 7.27 (7.35-7.45); ABG PO2 111 mmHg (83-108); ABG TCO2 19 mmol/L (19-24)
[2017-12-03 05:03] LABS: Calcium 6.5 mg/dL (8.4-10.2)
[2017-12-03 05:06] LABS: Band Neutrophils % 9 %; Lymphocytes # (M) 0.47 k/uL (1.0-4.8); Metamyelocytes # (M) 0.47 k/uL (0); Metamyelocytes % 1 %; Monocytes # (M) 0.94 k/uL (0-1.0); Neutrophils % (M) 87 %; Nucleated Red Blood Cells 0 /100 WBC (0-0); Total Cells Counted 100
[2017-12-03] MEDS: metroNIDAZOLE-NS PMX 500 MG in SALINE 1 100ML.BAG IVPB SCH ×4 (05:32→23:33)
[2017-12-03] MEDS: POTASSIUM CHLORIDE 10 MEQ in WATER FOR INJECTION 1 100ML.BAG IVPB SCH ×2 (05:35→06:27)
[2017-12-03 06:04] LABS: Glucose,Whole Blood 119 mg/dL (75-99)
[2017-12-03] MEDS ORDERED: CALCIUM CHLORIDE 500 MG in SODIUM CHLORIDE 0.9% 50 ML IVPB ONE (07:00)
[2017-12-03] MEDS: IPRATROPIUM-ALBUTEROL 3 ML NEB INHALATION SCH ×6 (07:14→22:57)
[2017-12-03] MEDS: PIPERACILLIN-TAZOBACTAM 3.375 GM in DEXTROSE/WATER 1 50ML.BAG IVPB SCH ×3 (07:52→23:33)
--- NOTE | 2017-12-03 08:09 | XR ---
EXAMINATION TYPE: XR chest 1V portable DATE OF EXAM: 12/03/2017 CLINICAL HISTORY: Difficulty breathing progress study. TECHNIQUE: Single AP portable upright view of the chest is obtained. COMPARISON: Chest x-ray from one day earlier FINDINGS: An endotracheal tube, right internal jugular central venous catheter, and orogastric tube are all stable in appearance. There is cardiomegaly with dual lead pacemaker redemonstrated. There is persistent left basilar opacity consistent with small left pleural effusion and associated left basi lar atelectasis and/or infiltrate. Suspect stable tiny right pleural effusion. There is chronic paren chymal change without suspicious focal airspace opacity or pneumothorax. Surgical changes medial aspe ct right humeral head is redemonstrated. IMPRESSION: Overall stable findings, cardiomegaly with small left pleural effusion and associated l eft basilar atelectasis and/or infiltrate all redemonstrated.
--- NOTE | 2017-12-03 08:33 | P.PN ---
Subjective Progress Note Date: 12/03/17 Principal diagnosis: Abdominal pain/sepsis Progress note dated 12/02/2017 This is a 77-year-old female who we saw yesterday in consultation. She came up from the ER with a picture of sepsis. We weren't sure where the infection was coming from. Based on CAT scan and urinalysis, thought maybe she had a bladder infection or a pyelonephritis. She was also having lower abdominal pain. I spoke to the surgeon yesterday. He decided that he was going to take the patient for an exploratory laparotomy. The patient is postop day #1, status post expiratory laparotomy, lysis of adhesions, partial colectomy with colostomy and ventral hernia repair 2. The patient is currently on the mechanical ventilator on the volume assist control mode. Rate is 16, tidal volume is 550, FiO2 is 40%, and PEEP is 5. Arterial blood gases show a PaO2 of 102 a PaCO2 is 37 and a pH 7.27. This is consistent with metabolic acidosis. The patient is on propofol at 15 mics per kilogram per minute, norepinephrine at 35 mics per minute and a saline IV at 150 an hour. NG tube is in place. Thus far, microbiology is negative. White blood count is 40.8, hemoglobin 13.8 , hematocrit 41.1 and platelet count 173,000. Sodium 1:30 potassium 3.8 chloride 105 CO2 17 anion gap is a BUN/creatinine were 29 and 1.60. Liver function tests are elevated as manifested by an elevated AST and ALT and alkaline phosphatase. Chest x-rays consistent with some mild bibasilar atelectasis and a small left-sided pleural effusion. Progress note dated 12/03/2017 77-year-old female who is postop day #2, status post exploratory laparotomy, lysis of adhesions, partial colectomy with colostomy and ventral hernia repair 2. The patient remains on the mechanical ventilator. She is thought to have severe sepsis. Her vent settings include the volume assist control mode, rate of 22, tidal volume 400, FiO2 to be dropped down to 35% from 40% and a PEEP of 5. Arterial blood gases show a PaO2 of 111 PaCO2 39 and a pH of 7.27. This is consistent with a mild to moderate metabolic acidosis. The FiO2 was dropped from 40-35%. The patient remains on norepinephrine at 15 mics per minute, propofol at 25 mcg/kg/m, hydrocortisone 15 mg an hour and saline IV at 150 an hour. Last night, I chose to give her hydrocortisone IV milligrams IV push and started her on the drip at 15 mg an hour and this seemed to improve her blood pressure so much so that the norepinephrine which was at 52 mcg/m is now at 15 mcg/m. In addition, I did speak to the patient's daughter, Daren, who had some concerns about how her mother's case was being managed. I spent a great deal of time talking to her about various modalities that we use here in the ICU including medications, ventilation, etc. I did offer transfer to a different institution if she felt uncomfortable. I did tell her that I would speak to her again this morning. Chest x-ray is consistent with basilar atelectasis and a small left pleural effusion. Urine culture was positive for group D enterococcus. White blood count is 46.9 hemoglobin and hematocrit were normal and platelet count 104,000. Sodium 134, potassium 3.9, chlorides 110, CO2 16, BUN and creatinine were 39 and 1.76. Anion gap is normal. Objective - Vital Signs Vital signs: Vital Signs Temp 98.0 F 12/03/17 04:00 Pulse 65 12/03/17 07:40 Resp 22 12/03/17 07:00 BP 115/53 12/03/17 06:45 Pulse Ox 100 12/03/17 07:00 Intake & Output 12/02/17 12/03/17 12/03/17 18:59 06:59 18:59 Intake Total 3661.317 3135.693 Output Total 170 434 Balance 3491.317 2701.693 Weight 89.5 kg Intake: IV 1212.5 2500.0 Piperacillin-Tazobactam 3 62.5 50.0 .375 gm In Dextrose/Water 1 50ml.bag @ 12.5 mls/hr IVPB Q8HR [facility] Rx#: [id number] Potassium Chloride 10 meq 200 In Water For Injection 1 100ml.bag @ 100 mls/hr IVPB Q1H [facility] Rx#: [id number] Sodium Chloride 0.9% 1, 1150 1800 000 ml @ 150 mls/hr IV . Q6H40M [facility] Rx#:[id number] Sodium Chloride 0.9% 250 150 ml @ 15 MG/HR 15 mls/hr IV .[id number] [facility] with Hydrocortisone Succinate 250 mg Rx#:[id number] metroNIDAZOLE-NS PMX 500 300 mg In Saline 1 100ml.bag @ 100 mls/hr IVPB Q6HR [facility] Rx#:[id number] Intake, IV Titration 2448.817 635.693 Amount Norepinephrin 16 mg-0.9% 255.0 Ns Pmx 16 mg In 250 ml @ Titrate IV .Q0M [facility] Rx#: [id number] Norepinephrine 16 mg In 478.717 513.930 Dextrose 5% in Water 250 ml @ Titrate IV .Q0M [facility] Rx#:[id number] Piperacillin-Tazobactam 3 12.5 .375 gm In Dextrose/Water 1 50ml.bag @ 12.5 mls/hr IVPB Q8HR [facility] Rx#: [id number] Potassium Chloride 10 meq 100 In Water For Injection 1 100ml.bag @ 100 mls/hr IVPB Q1H [facility] Rx#: [id number] Propofol 1,000 mg In 121.763 Empty Bag 1 bag @ Titrate IV .Q0M [facility] Rx#: [id number] Propofol 100 ml @ 0 mls/ 27.6 hr IV [facility] Rx#: [id number] Sodium Chloride 0.9% 1, 200 000 ml @ 100 mls/hr IV . Q10H [facility] Rx#:[id number] Sodium Chloride 0.9% 1, 100 000 ml @ 999 mls/hr IV . Q1H1M [facility] Rx#:[id number] Sodium Chloride 0.9% 1, 1000 000 ml @ 999 mls/hr IV . Q1H1M [facility] Rx#:[id number] Vancomycin 1,500 mg In 275 Sodium Chloride 0.9% 250 ml @ 125 mls/hr IVPB Q24HR [facility] Rx#:[id number] Output: Gastric Drainage 100 Urine 170 334 Other: Voiding Method Indwelling Catheter Indwelling Catheter ABP, PAP, CO, CI - Last Documented Arterial Blood Pressure 104/53 - Exam No acute distress, sedated, with a orally placed endotracheal tube and a nasally placed NG tube. HEENT examination is grossly unremarkable. Mucous membranes are moist. Neck supple. Full range of motion. No adenopathy thyromegaly or neck vein distention. Cardiovascular examination reveals regular rhythm rate. S1-S2 normal. No S3 or S4. No discernible murmur noted. Lungs reveal bilaterally equal breath sounds. Some bilateral coarse rhonchi are noted. No wheezes or crackles. Breath sounds equal bilaterally. Abdomen soft without bowel sounds. No masses. No tenderness. Fresh colostomy is noted. Extremities are intact. No cyanosis clubbing or edema. Extremities are cool. Skin is without rash or lesion. Neurologic examination could not be adequately assessed. - Labs CBC & Chem 7: 12/03/17 04:15 12/03/17 04:15 Labs: Abnormal Lab Results - Last 24 Hours (Table) 12/02/17 12/02/17 12/02/17 Range/Units 11:40 18:01 18:46 WBC (3.8-10.6) k/uL Plt Count (150-450) k/uL Neutrophils # (Manual) (1.3-7.7) k/uL Lymphocytes # (Manual) (1.0-4.8) k/uL Metamyelocytes # (Man) (0) k/uL ABG pH 7.23 L (7.35-7.45) ABG pO2 (83-108) mmHg ABG HCO3 16 L (21-25) mmol/L ABG Total CO2 17 L (19-24) mmol/L ABG O2 Saturation (94-97) % Sodium (137-145) mmol/L Chloride (98-107) mmol/L Carbon Dioxide (22-30) mmol/L BUN (7-17) mg/dL Creatinine (0.52-1.04) mg/dL Glucose (74-99) mg/dL POC Glucose (mg/dL) 122 H 124 H (75-99) mg/dL Calcium (8.4-10.2) mg/dL Phosphorus (2.5-4.5) mg/dL 12/03/17 12/03/17 12/03/17 Range/Units 00:45 04:15 04:15 WBC 46.9 H* (3.8-10.6) k/uL Plt Count 104 L (150-450) k/uL Neutrophils # (Manual) 45.00 H (1.3-7.7) k/uL Lymphocytes # (Manual) 0.47 L (1.0-4.8) k/uL Metamyelocytes # (Man) 0.47 H (0) k/uL ABG pH (7.35-7.45) ABG pO2 (83-108) mmHg ABG HCO3 (21-25) mmol/L ABG Total CO2 (19-24) mmol/L ABG O2 Saturation (94-97) % Sodium 134 L (137-145) mmol/L Chloride 110 H (98-107) mmol/L Carbon Dioxide 16 L (22-30) mmol/L BUN 39 H (7-17) mg/dL Creatinine 1.76 H (0.52-1.04) mg/dL Glucose 119 H (74-99) mg/dL POC Glucose (mg/dL) 122 H (75-99) mg/dL Calcium 6.5 L* (8.4-10.2) mg/dL Phosphorus 4.7 H (2.5-4.5) mg/dL 12/03/17 12/03/17 Range/Units 04:51 05:43 WBC (3.8-10.6) k/uL Plt Count (150-450) k/uL Neutrophils # (Manual) (1.3-7.7) k/uL Lymphocytes # (Manual) (1.0-4.8) k/uL Metamyelocytes # (Man) (0) k/uL ABG pH 7.27 L (7.35-7.45) ABG pO2 111 H (83-108) mmHg ABG HCO3 18 L (21-25) mmol/L ABG Total CO2 (19-24) mmol/L ABG O2 Saturation 98.4 H (94-97) % Sodium (137-145) mmol/L Chloride (98-107) mmol/L Carbon Dioxide (22-30) mmol/L BUN (7-17) mg/dL Creatinine (0.52-1.04) mg/dL Glucose (74-99) mg/dL POC Glucose (mg/dL) 119 H (75-99) mg/dL Calcium (8.4-10.2) mg/dL Phosphorus (2.5-4.5) mg/dL Microbiology - Last 24 Hours (Table) 12/02/17 Unknown Gram Stain - Preliminary Sputum Sputum Culture - Preliminary 12/01/17 08:20 Blood Culture Gram Stain - Preliminary Blood 12/01/17 08:20 Blood Culture - Final Blood 12/01/17 10:18 Urine Culture - Preliminary Urine,Voided Group D Enterococcus Assessment and Plan Assessment: Assessment Postop day #2, status post exploratory laparotomy with lysis of adhesions, partial colectomy, colostomy and ventral hernia repair 2. Postoperative ventilator management Group D enterococcus urinary tract infection Septic shock, with a likely source being either the GI or tract. Hypotension, secondary to sepsis Lactic acidosis Non-anion gap hyperchloremic metabolic acidosis Hypoalbuminemia History of skin cancer History of hypertension History of DJD History of hypothyroidism Leukocytosis Mild hyponatremia Plan: Plan dated 12/01/2017 The patient is currently receiving adequate fluid resuscitation. She received some Unasyn in the emergency department has been put on Zosyn. The patient's urine does look like it probably is infected. The leukocyte esterase was positive. There was some white blood cells and bacteria as well. The computed tomography scan was consistent with possible pyelonephritis. The patient should get adequate fluid resuscitation and should continue on norepinephrine to maintain a mean arterial pressure of about 65 mmHg. Additional recommendations and suggestions are forthcoming. Typically these patients will turn around rather quickly with appropriate antibiotics and maintenance of blood pressure. Additional recommendations and suggestions are forthcoming. Plan dated 12/02/2017 The patient will remain on the mechanical ventilator. She is requiring a large amount of norepinephrine to maintain blood pressures. We will make some changes. We'll increase her rate from 16 to 22 and we decreased the tidal volume of 550 to 400 mL. The patient will have all her labs x-rays and medications reviewed. We'll make sure she is on good antibiotics. An art line was placed in the operating room yesterday. Prognosis is guarded. We'll continue to follow. Hopefully her sepsis will improve and her blood pressure will improve and will be able to wean her norepinephrine. Additional recommendations and suggestions are forthcoming. Prognosis is guarded. Critical care time 36 minutes Plan dated 12/03/2017 We changed the FiO2 to 35%. There is been a significant improvement in her blood pressure and ability to wean the norepinephrine. The patient remains on sedation with propofol. We continue the hydrocortisone drip 15 mg an hour. The patient's IV will be switched to half-normal saline at 100 mL an hour. In addition, we'll start the patient on a bicarbonate drip. I did spend quite a bit of time talking to the daughter on the phone last night. I likely will speak to her again today. We will get an ionized calcium level. Additional recommendations and suggestions are forthcoming. Prognosis is guarded. I was very honest with the daughter last night. Critical care time 36 minutes Time with Patient: Greater than 30
[2017-12-03] MEDS: DEXTROSE 5% IN WATER 1,000 ML with SODIUM BICARB (1 MEQ/ML) 100 ML IV SCH ×2 (10:02→22:22)
[2017-12-03] MEDS: CHLORHEXIDINE GLUCONATE 15 ML CUP MUCOUS MEM SCH ×2 (10:03→20:40)
[2017-12-03] MEDS: SODIUM CHLORIDE 0.45% 1,000 ML IV SCH ×2 (10:03→22:21)
[2017-12-03] MEDS: PANTOPRAZOLE 40 MG/10 ML VIAL IV SCH (10:03)
[2017-12-03] MEDS: VANCOMYCIN 1,500 MG in SODIUM CHLORIDE 0.9% 250 ML IVPB SCH (10:04)
[2017-12-03 11:52] LABS: Glucose,Whole Blood 87 mg/dL (75-99)
[2017-12-03] MEDS ORDERED: ACETAMINOPHEN IV (For NPO) 1,000 MG in EMPTY BAG 1 BAG IVPB SCH (12:00)
[2017-12-03] MEDS ORDERED: ACETAMINOPHEN IV (For NPO) 1,000 MG in EMPTY BAG 1 BAG IVPB PRN (13:01)
--- NOTE | 2017-12-03 13:19 | PN ---
PROGRESS NOTE DATE OF SERVICE: 12/03/2017. REASON FOR FOLLOWUP: Sepsis, abdominal source. INTERVAL HISTORY: The patient is currently afebrile. She is still having overall critical condition requiring pressors though the Levophed is down to 13 mcg per the RN. The patient remains to be intubated on the vent. No other history could be obtained from the patient. Most of the information by the nursing staff. PHYSICAL EXAMINATION: On examination, blood pressure 115/54 with a pulse of 71 temperature 97.9. She is 97% on 40% FiO2. General description is an elderly female lying in bed in no distress. RESPIRATORY SYSTEM: Unlabored breathing, clear to auscultation anteriorly. HEART: S1, S2. Regular rate and rhythm. ABDOMEN: Soft, no tenderness. EXTREMITIES: No edema of feet. SKIN EXAMINATION: Shows more of the fingers and toes, which was cold to touch. LABS: Hemoglobin is 12.6, white count 46.9, BUN of 39, creatinine 1.76. Blood cultures with gram-negative. ID sensitivity pending. Urine showing Enterococcus species. Sputum culture pending. DIAGNOSTIC IMPRESSION AND PLAN: Patient with sepsis and septic shock. Source is multifactorial in this patient who did have ischemic bowel, status post laparotomy, possible component of urinary tract infection, urine showing Enterococcus. The patient's clinical condition remains to be guarded. She is currently on broad-spectrum antibiotic in form of Zosyn, Flagyl and vancomycin that will be continued for now, watching her clinical course closely. Continue supportive care. MMODL / IJN: [id number] /
--- NOTE | 2017-12-03 13:23 | US ---
EXAMINATION TYPE: US venous doppler duplex UE LT DATE OF EXAM: 12/03/2017 COMPARISON: NONE CLINICAL HISTORY: r/o blood clot. left arm swelling and iv would not push fluids, no h/o dvt per rn SIDE PERFORMED: Left INTUBATED ICU PATIENT Left Arm: Appears negative for DVT, unable to visualize basilic vein in the left forearm due to swell ing Grayscale, color doppler, spectral doppler imaging performed of the deep veins of the left upper extr emity. There is normal flow, compressability and vascular waveforms. IMPRESSION: Suboptimal evaluation of portions of the superficial left basilic vein. Moderate to sever e subcutaneous edema is seen at level of the brachial, cephalic, and basilic veins extending distally below elbow. No acute DVT is identified.
[2017-12-03] MEDS: SODIUM CHLORIDE 0.9% 99 ML with VASOPRESSIN 20 UNIT IV SCH ×4 (13:38→20:40)
[2017-12-03] MEDS: SODIUM CHLORIDE 0.9% 250 ML with HYDROCORTISONE SUCCINATE 250 MG IV SCH ×2 (14:10)
--- NOTE | 2017-12-03 15:30 | P.PN ---
Subjective Progress Note Date: 12/03/17 Principal diagnosis: Ischemic colitis Patient doing much better hemodynamically today. Levophed is now down to 10 mics. Improved visible perfusion to the feet and hands with the exception of some persistent ischemic changes to the left second finger. White blood cell count remains elevated. Urine output improving. Objective - Vital Signs Vital signs: Vital Signs Temp 97.9 F 12/03/17 12:00 Pulse 70 12/03/17 15:15 Resp 21 12/03/17 15:15 BP 110/57 12/03/17 15:15 Pulse Ox 98 12/03/17 15:15 Intake & Output 12/02/17 12/03/17 12/03/17 18:59 06:59 18:59 Intake Total 3661.317 3135.693 611.915 Output Total 170 434 330 Balance 3491.317 2701.693 281.915 Weight 89.5 kg Intake: IV 1212.5 2500.0 112.5 Piperacillin-Tazobactam 3 62.5 50.0 12.5 .375 gm In Dextrose/Water 1 50ml.bag @ 12.5 mls/hr IVPB Q8HR [facility] Rx#: [id number] Potassium Chloride 10 meq 200 In Water For Injection 1 100ml.bag @ 100 mls/hr IVPB Q1H [facility] Rx#: [id number] Sodium Chloride 0.9% 1, 1150 1800 000 ml @ 150 mls/hr IV . Q6H40M [facility] Rx#:[id number] Sodium Chloride 0.9% 250 150 ml @ 15 MG/HR 15 mls/hr IV .[id number] [facility] with Hydrocortisone Succinate 250 mg Rx#:[id number] metroNIDAZOLE-NS PMX 500 300 100 mg In Saline 1 100ml.bag @ 100 mls/hr IVPB Q6HR [facility] Rx#:[id number] Intake, IV Titration 2448.817 635.693 499.415 Amount Dextrose 5% in Water 1, 75 000 ml @ 75 mls/hr IV . [id number] [facility] with Sodium Bicarb (1 Meq/ml) 100 ml Rx#:[id number] Norepinephrin 16 mg-0.9% 255.0 Ns Pmx 16 mg In 250 ml @ Titrate IV .Q0M [facility] Rx#: [id number] Norepinephrine 16 mg In 478.717 513.930 113.035 Dextrose 5% in Water 250 ml @ Titrate IV .Q0M [facility] Rx#:[id number] Piperacillin-Tazobactam 3 12.5 .375 gm In Dextrose/Water 1 50ml.bag @ 12.5 mls/hr IVPB Q8HR [facility] Rx#: [id number] Potassium Chloride 10 meq 100 In Water For Injection 1 100ml.bag @ 100 mls/hr IVPB Q1H [facility] Rx#: [id number] Propofol 1,000 mg In 121.763 61.380 Empty Bag 1 bag @ Titrate IV .Q0M [facility] Rx#: [id number] Propofol 100 ml @ 0 mls/ 27.6 hr IV [facility] Rx#: [id number] Sodium Chloride 0.9% 1, 200 000 ml @ 100 mls/hr IV . Q10H [facility] Rx#:[id number] Sodium Chloride 0.9% 1, 100 000 ml @ 999 mls/hr IV . Q1H1M [facility] Rx#:[id number] Sodium Chloride 0.9% 1, 1000 000 ml @ 999 mls/hr IV . Q1H1M [facility] Rx#:[id number] Vancomycin 1,500 mg In 275 250 Sodium Chloride 0.9% 250 ml @ 125 mls/hr IVPB Q24HR [facility] Rx#:[id number] Output: Gastric Drainage 100 Urine 170 334 330 Other: Voiding Method Indwelling Catheter Indwelling Catheter Indwelling Catheter # Voids 50 ABP, PAP, CO, CI - Last Documented Arterial Blood Pressure 111/56 - Exam Abdomen: Soft, mild distention, mild tenderness, incision clean and dry, retention sutures intact, ostomy pink, urine is clear - Labs CBC & Chem 7: 12/03/17 04:15 12/03/17 04:15 Labs: Abnormal Lab Results - Last 24 Hours (Table) 12/02/17 12/02/17 12/03/17 Range/Units 18:01 18:46 00:45 WBC (3.8-10.6) k/uL Plt Count (150-450) k/uL Neutrophils # (Manual) (1.3-7.7) k/uL Lymphocytes # (Manual) (1.0-4.8) k/uL Metamyelocytes # (Man) (0) k/uL ABG pH 7.23 L (7.35-7.45) ABG pO2 (83-108) mmHg ABG HCO3 16 L (21-25) mmol/L ABG Total CO2 17 L (19-24) mmol/L ABG O2 Saturation (94-97) % Sodium (137-145) mmol/L Chloride (98-107) mmol/L Carbon Dioxide (22-30) mmol/L BUN (7-17) mg/dL Creatinine (0.52-1.04) mg/dL Glucose (74-99) mg/dL POC Glucose (mg/dL) 124 H 122 H (75-99) mg/dL Calcium (8.4-10.2) mg/dL Phosphorus (2.5-4.5) mg/dL 12/03/17 12/03/17 12/03/17 Range/Units 04:15 04:15 04:51 WBC 46.9 H* (3.8-10.6) k/uL Plt Count 104 L (150-450) k/uL Neutrophils # (Manual) 45.00 H (1.3-7.7) k/uL Lymphocytes # (Manual) 0.47 L (1.0-4.8) k/uL Metamyelocytes # (Man) 0.47 H (0) k/uL ABG pH 7.27 L (7.35-7.45) ABG pO2 111 H (83-108) mmHg ABG HCO3 18 L (21-25) mmol/L ABG Total CO2 (19-24) mmol/L ABG O2 Saturation 98.4 H (94-97) % Sodium 134 L (137-145) mmol/L Chloride 110 H (98-107) mmol/L Carbon Dioxide 16 L (22-30) mmol/L BUN 39 H (7-17) mg/dL Creatinine 1.76 H (0.52-1.04) mg/dL Glucose 119 H (74-99) mg/dL POC Glucose (mg/dL) (75-99) mg/dL Calcium 6.5 L* (8.4-10.2) mg/dL Phosphorus 4.7 H (2.5-4.5) mg/dL 12/03/17 Range/Units 05:43 WBC (3.8-10.6) k/uL Plt Count (150-450) k/uL Neutrophils # (Manual) (1.3-7.7) k/uL Lymphocytes # (Manual) (1.0-4.8) k/uL Metamyelocytes # (Man) (0) k/uL ABG pH (7.35-7.45) ABG pO2 (83-108) mmHg ABG HCO3 (21-25) mmol/L ABG Total CO2 (19-24) mmol/L ABG O2 Saturation (94-97) % Sodium (137-145) mmol/L Chloride (98-107) mmol/L Carbon Dioxide (22-30) mmol/L BUN (7-17) mg/dL Creatinine (0.52-1.04) mg/dL Glucose (74-99) mg/dL POC Glucose (mg/dL) 119 H (75-99) mg/dL Calcium (8.4-10.2) mg/dL Phosphorus (2.5-4.5) mg/dL Microbiology - Last 24 Hours (Table) 12/01/17 10:18 Urine Culture - Final Urine,Voided Enterococcus faecalis 12/02/17 Unknown Gram Stain - Preliminary Sputum Sputum Culture - Preliminary 12/01/17 08:20 Blood Culture Gram Stain - Preliminary Blood 12/01/17 08:20 Blood Culture - Final Blood Assessment and Plan (1) Abdominal pain Narrative/Plan: Continue IV antibiotics. Continue weaning pressors as able. Agree with weaning trials on ventilator. Patient much improved since yesterday. Current Visit: Yes Status: Acute Code(s): R10.9 - UNSPECIFIED ABDOMINAL PAIN SNOMED Code(s): 71412688
[2017-12-03 19:18] LABS: Glucose,Whole Blood 161 mg/dL (75-99)
[2017-12-03] MEDS: INSULIN ASPART 100 UNIT/ML 1 ML 10 ML VIAL SQ SCH ×2 (19:36→23:47)
[2017-12-03 23:50] LABS: Glucose,Whole Blood 167 mg/dL (75-99)
--- NOTE | 2017-12-04 01:55 | P.PN ---
Subjective Progress Note Date: 12/02/17 Principal diagnosis: Septic shock due to ischemic bowel Patient is 77-year-old female with a known history of hypertension, hypothyroidism, third-degree heart block with pacemaker, colitis/stomach ulcer in the 1970s, migraine headache and COPD and multiple other medical problems came to ER with complaints of abdominal discomfort mainly in the lower abdomen and shakiness. Denied any fever. Denied any cough or sputum production. Patient does have chronic cough but no recent changes. No diarrhea. No headache or dizziness. No chest pain or shortness of breath. Denied any hematuria or dysuria. Patient says her symptoms began last night around 9:30 PM. Symptoms are getting worse and patient presently ER for further evaluation. Patient was hypotensive in the ER and was associated with normal saline 4 L and was started on levofed drip. Patient was transferred to MICU for intensive care. Patient has leukocytosis 14.4, lactic acid 5.5 and slightly abnormal urine sample. Patient was started on antibiotics and general surgery was consulted for possible ischemic colon. Chest x-ray diffuse interstitial pattern. Correlate for mild congestion. CT of the abdominal pelvis showed perinephric stranding on the left with bilateral perinephric fluid. Consider pyelonephritis. No obstruction is evident. Diverticulosis without acute diverticulitis of the sigmoid colon. pancreas prominence of the antiemetic duct Within the body and tail of the pancreas. Follow-up ERCP could be considered. Correlate for acute pancreatitis. 12/02/2017 Patient was intubated postoperatively. Patient had exploratory laparotomy with lysis of adhesions, colectomy and colostomy bag placement and as well as ventral hernia repair. Patient is still requiring high doses of Levophed. Continued on IV hydration and monitor EUGENIA's. Patient was found have severe leukocytosis today at 40.8. Vancomycin and Flagyl was added along with Zosyn. ID was consulted. Next a chest x-ray showed mild bibasilar atelectasis and small left-sided pleural effusion. Pulmonary and general surgery and ID following. Review of systems could not be obtained from the patient. Current medications reviewed. Objective - Vital Signs Vital signs: Vital Signs Temp 98.3 F 12/02/17 20:00 Pulse 74 12/02/17 22:00 Resp 22 12/02/17 22:00 BP 119/52 12/02/17 21:30 Pulse Ox 96 12/02/17 22:00 Intake & Output 12/02/17 12/02/17 12/03/17 06:59 18:59 06:59 Intake Total 2205.473 3661.317 563.356 Output Total 345 170 129 Balance 9409.187 8828.317 434.356 Weight 82.8 kg Intake: IV 2100.0 1212.5 312.5 Piperacillin-Tazobactam 3 50.0 62.5 12.5 .375 gm In Dextrose/Water 1 50ml.bag @ 12.5 mls/hr IVPB Q8HR [facility] Rx#: [id number] Sodium Chloride 0.9% 1, 1350 1150 300 000 ml @ 150 mls/hr IV . Q6H40M [facility] Rx#:[id number] Intake, IV Titration 623.739 9249.817 250.856 Amount Norepinephrin 16 mg-0.9% 255.0 Ns Pmx 16 mg In 250 ml @ Titrate IV .Q0M [facility] Rx#: [id number] Norepinephrine 16 mg In 65.388 478.717 250.856 Dextrose 5% in Water 250 ml @ Titrate IV .Q0M [facility] Rx#:[id number] Piperacillin-Tazobactam 3 12.5 .375 gm In Dextrose/Water 1 50ml.bag @ 12.5 mls/hr IVPB Q8HR [facility] Rx#: [id number] Potassium Chloride 10 meq 100 In Water For Injection 1 100ml.bag @ 100 mls/hr IVPB Q1H [facility] Rx#: [id number] Propofol 1,000 mg In 40.085 Empty Bag 1 bag @ Titrate IV .Q0M [facility] Rx#: [id number] Propofol 100 ml @ 0 mls/ 27.6 hr IV .[facility] Rx#: [id number] Sodium Chloride 0.9% 1, 200 000 ml @ 100 mls/hr IV . Q10H [facility] Rx#:[id number] Sodium Chloride 0.9% 1, 100 000 ml @ 999 mls/hr IV . Q1H1M [facility] Rx#:[id number] Sodium Chloride 0.9% 1, 1000 000 ml @ 999 mls/hr IV . Q1H1M [facility] Rx#:[id number] Vancomycin 1,500 mg In 275 Sodium Chloride 0.9% 250 ml @ 125 mls/hr IVPB Q24HR [facility] Rx#:[id number] Output: Gastric Drainage 100 Urine 315 170 29 Estimated Blood Loss 30 Other: Voiding Method Indwelling Catheter Indwelling Catheter ABP, PAP, CO, CI - Last Documented Arterial Blood Pressure 113/53 - Exam PHYSICAL EXAMINATION: Patient is lying in the bed comfortably, patient is currently sedated and intubated... HEENT: Normocephalic. Neck is supple. Pupils reactive. Nostrils clear. Oral cavity is moist. Ears reveal no drainage. Neck reveals no JVD, carotid bruits, or thyromegaly. CHEST EXAMINATION: Trachea is central. Symmetrical expansion. Bibasilar diminished air entry. No wheezing. CARDIAC: Normal S1, S2 with no gallops. No murmurs ABDOMEN: Soft. Bandage at surgical site. Bowel diminished. Extremities: reveal no edema. No clubbing or cyanosis Neurologically currently sedated and intubated. No gross focal deficits noted Skin: No rash or skin lesions. Psychiatric: Could not be assessed. Musculoskeletal: No joint swelling or deformity. - Labs CBC & Chem 7: 12/03/17 04:15 12/03/17 04:15 Labs: Abnormal Lab Results - Last 24 Hours (Table) 12/01/17 12/02/17 12/02/17 Range/Units 23:30 04:00 04:00 WBC 40.8 H* (3.8-10.6) k/uL Neutrophils # (Manual) 32.60 H (1.3-7.7) k/uL Lymphocytes # (Manual) 0.82 L (1.0-4.8) k/uL Monocytes # (Manual) 7.34 H (0-1.0) k/uL ABG pH 7.25 L (7.35-7.45) ABG pO2 292 H (83-108) mmHg ABG HCO3 18 L (21-25) mmol/L ABG Total CO2 (19-24) mmol/L ABG O2 Saturation 100.0 H (94-97) % Sodium 130 L (137-145) mmol/L Carbon Dioxide 17 L (22-30) mmol/L BUN 29 H (7-17) mg/dL Creatinine 1.60 H (0.52-1.04) mg/dL Glucose 107 H (74-99) mg/dL POC Glucose (mg/dL) (75-99) mg/dL Calcium 6.9 L (8.4-10.2) mg/dL AST 106 H (14-36) U/L ALT 89 H (9-52) U/L Alkaline Phosphatase 267 H (38-126) U/L Total Protein 4.7 L (6.3-8.2) g/dL Albumin 2.3 L (3.5-5.0) g/dL 12/02/17 12/02/17 12/02/17 Range/Units 05:20 11:40 18:01 WBC (3.8-10.6) k/uL Neutrophils # (Manual) (1.3-7.7) k/uL Lymphocytes # (Manual) (1.0-4.8) k/uL Monocytes # (Manual) (0-1.0) k/uL ABG pH 7.27 L (7.35-7.45) ABG pO2 (83-108) mmHg ABG HCO3 17 L (21-25) mmol/L ABG Total CO2 18 L (19-24) mmol/L ABG O2 Saturation 98.3 H (94-97) % Sodium (137-145) mmol/L Carbon Dioxide (22-30) mmol/L BUN (7-17) mg/dL Creatinine (0.52-1.04) mg/dL Glucose (74-99) mg/dL POC Glucose (mg/dL) 122 H 124 H (75-99) mg/dL Calcium (8.4-10.2) mg/dL AST (14-36) U/L ALT (9-52) U/L Alkaline Phosphatase (38-126) U/L Total Protein (6.3-8.2) g/dL Albumin (3.5-5.0) g/dL 12/02/17 Range/Units 18:46 WBC (3.8-10.6) k/uL Neutrophils # (Manual) (1.3-7.7) k/uL Lymphocytes # (Manual) (1.0-4.8) k/uL Monocytes # (Manual) (0-1.0) k/uL ABG pH 7.23 L (7.35-7.45) ABG pO2 (83-108) mmHg ABG HCO3 16 L (21-25) mmol/L ABG Total CO2 17 L (19-24) mmol/L ABG O2 Saturation (94-97) % Sodium (137-145) mmol/L Carbon Dioxide (22-30) mmol/L BUN (7-17) mg/dL Creatinine (0.52-1.04) mg/dL Glucose (74-99) mg/dL POC Glucose (mg/dL) (75-99) mg/dL Calcium (8.4-10.2) mg/dL AST (14-36) U/L ALT (9-52) U/L Alkaline Phosphatase (38-126) U/L Total Protein (6.3-8.2) g/dL Albumin (3.5-5.0) g/dL Microbiology - Last 24 Hours (Table) 12/01/17 08:20 Blood Culture Gram Stain - Preliminary Blood 12/01/17 08:20 Blood Culture - Final Blood 12/01/17 10:18 Urine Culture - Preliminary Urine,Voided Group D Enterococcus Assessment and Plan Assessment: Septic shock due to pyelonephritis per CT and ischemic colon with lactic acidosis status post exploratory laparotomy with lysis of adhesions, partial colectomy, colostomy and ventral hernia repair 2. On 12/01/2017 Leukocytosis, hypotension and tachycardia and lactic acidosis Currently everyday smoker Hypertension Osteoarthritis Hypothyroidism Hypovolemic hyponatremia COPD stable History of skin cancer Third-degree heart block with pacemaker History of colitis/stomach ulcer in 1970 History of GI bleed DVT prophylaxis Plan: Patient be continued on broad-spectrum antibiotics in the form of Zosyn and vancomycin and Flagyl was added.. Continue the IV fluids and pressor support pulmonary is on board. Gen. surgery was consulted. Continue to follow closely and further recommendations based on the clinical course. Prognosis is guarded. Time with Patient: Greater than 30
--- NOTE | 2017-12-04 01:58 | P.PN ---
Subjective Progress Note Date: 12/03/17 Principal diagnosis: Septic shock due to ischemic bowel Patient is 77-year-old female with a known history of hypertension, hypothyroidism, third-degree heart block with pacemaker, colitis/stomach ulcer in the 1970s, migraine headache and COPD and multiple other medical problems came to ER with complaints of abdominal discomfort mainly in the lower abdomen and shakiness. Denied any fever. Denied any cough or sputum production. Patient does have chronic cough but no recent changes. No diarrhea. No headache or dizziness. No chest pain or shortness of breath. Denied any hematuria or dysuria. Patient says her symptoms began last night around 9:30 PM. Symptoms are getting worse and patient presently ER for further evaluation. Patient was hypotensive in the ER and was associated with normal saline 4 L and was started on levofed drip. Patient was transferred to MICU for intensive care. Patient has leukocytosis 14.4, lactic acid 5.5 and slightly abnormal urine sample. Patient was started on antibiotics and general surgery was consulted for possible ischemic colon. Chest x-ray diffuse interstitial pattern. Correlate for mild congestion. CT of the abdominal pelvis showed perinephric stranding on the left with bilateral perinephric fluid. Consider pyelonephritis. No obstruction is evident. Diverticulosis without acute diverticulitis of the sigmoid colon. pancreas prominence of the antiemetic duct Within the body and tail of the pancreas. Follow-up ERCP could be considered. Correlate for acute pancreatitis. 12/02/2017 Patient was intubated postoperatively. Patient had exploratory laparotomy with lysis of adhesions, colectomy and colostomy bag placement and as well as ventral hernia repair. Patient is still requiring high doses of Levophed. Continued on IV hydration and monitor EUGENIA's. Patient was found have severe leukocytosis today at 40.8. Vancomycin and Flagyl was added along with Zosyn. ID was consulted. Next a chest x-ray showed mild bibasilar atelectasis and small left-sided pleural effusion. Pulmonary and general surgery and ID following. 12/03/2017 Patient remains on mechanical ventilator today. Still on pressor support and gradually tapering down. Patient also having metabolic acidosis and was started on bicarb as well. Patient was also started on stress test steroids with hydrocortisone. Otherwise continued on norepinephrine. Chest x-ray showed bibasilar atelectasis and small left pleural effusion. Urine culture showed group B enterococcus. WBC count is still elevated at 46.9. Currently on broad-spectrum antibiotics. Creatinine 1.76 Review of systems could not be obtained from the patient. Current medications reviewed. Objective - Vital Signs Vital signs: Vital Signs Temp 98.3 F 12/03/17 16:00 Pulse 66 12/03/17 16:15 Resp 23 12/03/17 16:15 BP 99/54 12/03/17 16:15 Pulse Ox 100 12/03/17 16:15 Intake & Output 12/02/17 12/03/17 12/03/17 18:59 06:59 18:59 Intake Total 3661.317 3135.693 672.596 Output Total 170 434 360 Balance 3491.317 2701.693 312.596 Weight 89.5 kg Intake: IV 1212.5 2500.0 162.5 Piperacillin-Tazobactam 3 62.5 50.0 62.5 .375 gm In Dextrose/Water 1 50ml.bag @ 12.5 mls/hr IVPB Q8HR [facility] Rx#: [id number] Potassium Chloride 10 meq 200 In Water For Injection 1 100ml.bag @ 100 mls/hr IVPB Q1H [facility] Rx#: [id number] Sodium Chloride 0.9% 1, 1150 1800 000 ml @ 150 mls/hr IV . Q6H40M [facility] Rx#:[id number] Sodium Chloride 0.9% 250 150 ml @ 15 MG/HR 15 mls/hr IV .[id number] [facility] with Hydrocortisone Succinate 250 mg Rx#:[id number] metroNIDAZOLE-NS PMX 500 300 100 mg In Saline 1 100ml.bag @ 100 mls/hr IVPB Q6HR [facility] Rx#:[id number] Intake, IV Titration 2448.817 635.693 510.096 Amount Dextrose 5% in Water 1, 75 000 ml @ 75 mls/hr IV . [id number] [facility] with Sodium Bicarb (1 Meq/ml) 100 ml Rx#:[id number] Norepinephrin 16 mg-0.9% 255.0 Ns Pmx 16 mg In 250 ml @ Titrate IV .Q0M [facility] Rx#: [id number] Norepinephrine 16 mg In 478.717 513.930 123.716 Dextrose 5% in Water 250 ml @ Titrate IV .Q0M [facility] Rx#:[id number] Piperacillin-Tazobactam 3 12.5 .375 gm In Dextrose/Water 1 50ml.bag @ 12.5 mls/hr IVPB Q8HR [facility] Rx#: [id number] Potassium Chloride 10 meq 100 In Water For Injection 1 100ml.bag @ 100 mls/hr IVPB Q1H [facility] Rx#: [id number] Propofol 1,000 mg In 121.763 61.380 Empty Bag 1 bag @ Titrate IV .Q0M [facility] Rx#: [id number] Propofol 100 ml @ 0 mls/ 27.6 hr IV [facility] Rx#: [id number] Sodium Chloride 0.9% 1, 200 000 ml @ 100 mls/hr IV . Q10H [facility] Rx#:[id number] Sodium Chloride 0.9% 1, 100 000 ml @ 999 mls/hr IV . Q1H1M [facility] Rx#:[id number] Sodium Chloride 0.9% 1, 1000 000 ml @ 999 mls/hr IV . Q1H1M [facility] Rx#:[id number] Vancomycin 1,500 mg In 275 250 Sodium Chloride 0.9% 250 ml @ 125 mls/hr IVPB Q24HR [facility] Rx#:[id number] Output: Gastric Drainage 100 Urine 170 334 360 Other: Voiding Method Indwelling Catheter Indwelling Catheter Indwelling Catheter # Voids 50 ABP, PAP, CO, CI - Last Documented Arterial Blood Pressure 0/0 - Exam PHYSICAL EXAMINATION: Patient is lying in the bed comfortably, patient is currently sedated and intubated... HEENT: Normocephalic. Neck is supple. Pupils reactive. Nostrils clear. Oral cavity is moist. Ears reveal no drainage. Neck reveals no JVD, carotid bruits, or thyromegaly. CHEST EXAMINATION: Trachea is central. Symmetrical expansion. Bibasilar diminished air entry. No wheezing. CARDIAC: Normal S1, S2 with no gallops. No murmurs ABDOMEN: Soft. Bandage at surgical site. Bowel diminished. Extremities: reveal no edema. No clubbing or cyanosis Neurologically currently sedated and intubated. No gross focal deficits noted Skin: No rash or skin lesions. Psychiatric: Could not be assessed. Musculoskeletal: No joint swelling or deformity. - Labs CBC & Chem 7: 08/17/18 04:15 12/03/17 04:15 Labs: Abnormal Lab Results - Last 24 Hours (Table) 12/02/17 12/02/17 12/03/17 Range/Units 18:01 18:46 00:45 WBC (3.8-10.6) k/uL Plt Count (150-450) k/uL Neutrophils # (Manual) (1.3-7.7) k/uL Lymphocytes # (Manual) (1.0-4.8) k/uL Metamyelocytes # (Man) (0) k/uL ABG pH 7.23 L (7.35-7.45) ABG pO2 (83-108) mmHg ABG HCO3 16 L (21-25) mmol/L ABG Total CO2 17 L (19-24) mmol/L ABG O2 Saturation (94-97) % Sodium (137-145) mmol/L Chloride (98-107) mmol/L Carbon Dioxide (22-30) mmol/L BUN (7-17) mg/dL Creatinine (0.52-1.04) mg/dL Glucose (74-99) mg/dL POC Glucose (mg/dL) 124 H 122 H (75-99) mg/dL Calcium (8.4-10.2) mg/dL Phosphorus (2.5-4.5) mg/dL 12/03/1718 12/03/17 Range/Units 04:15 04:15 04:51 WBC 46.9 H* (3.8-10.6) k/uL Plt Count 104 L (150-450) k/uL Neutrophils # (Manual) 45.00 H (1.3-7.7) k/uL Lymphocytes # (Manual) 0.47 L (1.0-4.8) k/uL Metamyelocytes # (Man) 0.47 H (0) k/uL ABG pH 7.27 L (7.35-7.45) ABG pO2 111 H (83-108) mmHg ABG HCO3 18 L (21-25) mmol/L ABG Total CO2 (19-24) mmol/L ABG O2 Saturation 98.4 H (94-97) % Sodium 134 L (137-145) mmol/L Chloride 110 H (98-107) mmol/L Carbon Dioxide 16 L (22-30) mmol/L BUN 39 H (7-17) mg/dL Creatinine 1.76 H (0.52-1.04) mg/dL Glucose 119 H (74-99) mg/dL POC Glucose (mg/dL) (75-99) mg/dL Calcium 6.5 L* (8.4-10.2) mg/dL Phosphorus 4.7 H (2.5-4.5) mg/dL 12/03/17 Range/Units 05:43 WBC (3.8-10.6) k/uL Plt Count (150-450) k/uL Neutrophils # (Manual) (1.3-7.7) k/uL Lymphocytes # (Manual) (1.0-4.8) k/uL Metamyelocytes # (Man) (0) k/uL ABG pH (7.35-7.45) ABG pO2 (83-108) mmHg ABG HCO3 (21-25) mmol/L ABG Total CO2 (19-24) mmol/L ABG O2 Saturation (94-97) % Sodium (137-145) mmol/L Chloride (98-107) mmol/L Carbon Dioxide (22-30) mmol/L BUN (7-17) mg/dL Creatinine (0.52-1.04) mg/dL Glucose (74-99) mg/dL POC Glucose (mg/dL) 119 H (75-99) mg/dL Calcium (8.4-10.2) mg/dL Phosphorus (2.5-4.5) mg/dL Microbiology - Last 24 Hours (Table) 12/01/17 10:18 Urine Culture - Final Urine,Voided Enterococcus faecalis 12/02/17 Unknown Gram Stain - Preliminary Sputum Sputum Culture - Preliminary 12/01/17 08:20 Blood Culture Gram Stain - Preliminary Blood 12/01/17 08:20 Blood Culture - Final Blood Assessment and Plan Assessment: Septic shock due to pyelonephritis per CT and ischemic colon with lactic acidosis status post exploratory laparotomy with lysis of adhesions, partial colectomy, colostomy and ventral hernia repair 2. On 12/01/2017 Leukocytosis, hypotension and tachycardia and lactic acidosis Currently everyday smoker Hypertension Osteoarthritis Hypothyroidism Hypovolemic hyponatremia COPD stable History of skin cancer Third-degree heart block with pacemaker History of colitis/stomach ulcer in 1970 History of GI bleed DVT prophylaxis Plan: Patient be continued on broad-spectrum antibiotics in the form of Zosyn and vancomycin and Flagyl was added.. Continue the IV fluids and pressor support pulmonary is on board. Gen. surgery was consulted. Continue to follow closely and further recommendations based on the clinical course. Prognosis is guarded. Time with Patient: Greater than 30
[2017-12-04] MEDS: IPRATROPIUM-ALBUTEROL 3 ML NEB INHALATION SCH ×6 (03:01→20:03)
[2017-12-04 04:11] LABS: ABG Base Excess -7.4 mmol/L; ABG HCO3 18 mmol/L (21-25); ABG Oxygen Saturation 97.7 % (94-97); ABG PCO2 32 mmHg (35-45); ABG PH 7.36 (7.35-7.45); ABG PO2 90 mmHg (83-108); ABG TCO2 19 mmol/L (19-24)
[2017-12-04 04:30] LABS: HCT 34.1 % (34.0-46.0); HGB 11.3 gm/dL (11.4-16.0); MCH 30.4 pg (25.0-35.0); MCHC 33.3 g/dL (31.0-37.0); MCV 91.4 fL (80.0-100.0); Mean Platelet Volume 7.8; Platelet Count 69 k/uL (150-450); RBC 3.73 m/uL (3.80-5.40); RDW 14.7 % (11.5-15.5)
[2017-12-04 04:31] LABS: WBC 46.5 k/uL (3.8-10.6)
[2017-12-04 04:39] LABS: Magnesium 2.2 mg/dL (1.6-2.3); Phosphorus 3.9 mg/dL (2.5-4.5); Potassium 3.5 mmol/L (3.5-5.1)
[2017-12-04 04:53] LABS: Monocytes # (M) 0.93 k/uL (0-1.0); Neutrophils # (M) 45.57 k/uL (1.3-7.7); Neutrophils % (M) 98 %; Nucleated Red Blood Cells 0 /100 WBC (0-0); Total Cells Counted 100; Toxic Vacuolation Present
[2017-12-04] MEDS: PROPOFOL 1,000 MG in EMPTY BAG 1 BAG IV SCH (04:57)
[2017-12-04] MEDS: NOREPINEPHRINE 16 MG in DEXTROSE 5% IN WATER 250 ML IV SCH ×2 (04:57)
[2017-12-04] MEDS: POTASSIUM CHLORIDE 20 MEQ in WATER FOR INJECTION 1 100ML.BAG IVPB SCH ×4 (05:41→23:35)
[2017-12-04] MEDS: metroNIDAZOLE-NS PMX 500 MG in SALINE 1 100ML.BAG IVPB SCH ×2 (05:54→12:32)
[2017-12-04] MEDS: INSULIN ASPART 100 UNIT/ML 1 ML 10 ML VIAL SQ SCH ×3 (05:57→17:43)
--- NOTE | 2017-12-04 06:10 | XR ---
EXAMINATION TYPE: XR chest 1V portable DATE OF EXAM: 12/04/2017 HISTORY: Tube placement. REFERENCE: Previous study dated 12/03/2017. FINDINGS: There is a bipolar pacemaker place on the left. There is a right shoulder hemiarthroplasty. The patient is ET tube, NG tube and right internal jugular catheter remain in place, unchanged in kath earance. There is consolidation at the left lung base. There is a small left effusion. IMPRESSION: NO SIGNIFICANT CHANGE IN THE APPEARANCE OF THE CHEST.
[2017-12-04 06:13] LABS: Glucose,Whole Blood 160 mg/dL (75-99)
[2017-12-04] MEDS: SODIUM CHLORIDE 0.9% 250 ML with HYDROCORTISONE SUCCINATE 250 MG IV SCH ×4 (06:35→23:38)
[2017-12-04] MEDS: SODIUM CHLORIDE 0.9% 99 ML with VASOPRESSIN 20 UNIT IV SCH ×4 (07:42→10:42)
[2017-12-04] MEDS: PIPERACILLIN-TAZOBACTAM 3.375 GM in DEXTROSE/WATER 1 50ML.BAG IVPB SCH ×3 (08:16→23:35)
--- NOTE | 2017-12-04 09:21 | P.PN ---
Subjective Progress Note Date: 12/04/17 Principal diagnosis: Abdominal pain/sepsis Progress note dated 12/02/2017 This is a 77-year-old female who we saw yesterday in consultation. She came up from the ER with a picture of sepsis. We weren't sure where the infection was coming from. Based on CAT scan and urinalysis, thought maybe she had a bladder infection or a pyelonephritis. She was also having lower abdominal pain. I spoke to the surgeon yesterday. He decided that he was going to take the patient for an exploratory laparotomy. The patient is postop day #1, status post expiratory laparotomy, lysis of adhesions, partial colectomy with colostomy and ventral hernia repair 2. The patient is currently on the mechanical ventilator on the volume assist control mode. Rate is 16, tidal volume is 550, FiO2 is 40%, and PEEP is 5. Arterial blood gases show a PaO2 of 102 a PaCO2 is 37 and a pH 7.27. This is consistent with metabolic acidosis. The patient is on propofol at 15 mics per kilogram per minute, norepinephrine at 35 mics per minute and a saline IV at 150 an hour. NG tube is in place. Thus far, microbiology is negative. White blood count is 40.8, hemoglobin 13.8 , hematocrit 41.1 and platelet count 173,000. Sodium 1:30 potassium 3.8 chloride 105 CO2 17 anion gap is a BUN/creatinine were 29 and 1.60. Liver function tests are elevated as manifested by an elevated AST and ALT and alkaline phosphatase. Chest x-rays consistent with some mild bibasilar atelectasis and a small left-sided pleural effusion. Progress note dated 12/03/2017 77-year-old female who is postop day #2, status post exploratory laparotomy, lysis of adhesions, partial colectomy with colostomy and ventral hernia repair 2. The patient remains on the mechanical ventilator. She is thought to have severe sepsis. Her vent settings include the volume assist control mode, rate of 22, tidal volume 400, FiO2 to be dropped down to 35% from 40% and a PEEP of 5. Arterial blood gases show a PaO2 of 111 PaCO2 39 and a pH of 7.27. This is consistent with a mild to moderate metabolic acidosis. The FiO2 was dropped from 40-35%. The patient remains on norepinephrine at 15 mics per minute, propofol at 25 mcg/kg/m, hydrocortisone 15 mg an hour and saline IV at 150 an hour. Last night, I chose to give her hydrocortisone IV milligrams IV push and started her on the drip at 15 mg an hour and this seemed to improve her blood pressure so much so that the norepinephrine which was at 52 mcg/m is now at 15 mcg/m. In addition, I did speak to the patient's daughter, Daren, who had some concerns about how her mother's case was being managed. I spent a great deal of time talking to her about various modalities that we use here in the ICU including medications, ventilation, etc. I did offer transfer to a different institution if she felt uncomfortable. I did tell her that I would speak to her again this morning. Chest x-ray is consistent with basilar atelectasis and a small left pleural effusion. Urine culture was positive for group D enterococcus. White blood count is 46.9 hemoglobin and hematocrit were normal and platelet count 104,000. Sodium 134, potassium 3.9, chlorides 110, CO2 16, BUN and creatinine were 39 and 1.76. Anion gap is normal. Progress note dated 12/04/2017 77-year-old female postop day #3, status post exploratory laparotomy, lysis of adhesions, partial colectomy with colostomy and ventral hernia repair 2. The patient remains on the mechanical ventilator. She has made some progress over. Currently on the volume assist control mode with a rate of 22, tidal volume 400, FiO2 35% and PEEP of 5. Arterial blood gases show a PaO2 of 90 PaCO2 of 32 and a pH of 7.35. These arterial blood gases are consistent with a relative hypoxemia and a mild metabolic acidosis. She is on a 0.45 IV at 75 mL an hour. In addition, she's got a dextrose IV with 2 A of sodium bicarbonate at 75 mL an hour. Norepinephrine has been weaned off. She is on propofol at 20 mics per kilogram per minute. We are going to give her a sedation holiday. She is also receiving hydrocortisone at 15 mg per hour. Chest x-ray shows some very mild fluid overload. Urine was positive for group D enterococcus and her blood cultures are positive for gram-negative bacilli, yet to be identified. She is really made significant improvement since starting her on hydrocortisone for relative adrenal insufficiency. I have had daily conversations with the family. Objective - Vital Signs Vital signs: Vital Signs Temp 98.1 F 08/18/18 04:00 Pulse 81 12/04/17 09:00 Resp 22 12/04/17 09:00 BP 108/63 12/04/17 09:00 Pulse Ox 100 12/04/17 09:00 Intake & Output 12/03/17 12/04/17 12/04/17 18:59 06:59 18:59 Intake Total 078.753 6014.688 888.257 Output Total 390 650 235 Balance 507.041 2883.688 653.257 Weight 99 kg Intake: IV 440.0 1955 824 Dextrose 5% in Water 1, 75 825 222 000 ml @ 75 mls/hr IV . [id number] [facility] with Sodium Bicarb (1 Meq/ml) 100 ml Rx#:[id number] Piperacillin-Tazobactam 3 75.0 100 50 .375 gm In Dextrose/Water 1 50ml.bag @ 12.5 mls/hr IVPB Q8HR [facility] Rx#: [id number] Potassium Chloride 20 meq 200 In Water For Injection 1 100ml.bag @ 50 mls/hr IVPB Q2H [facility] Rx#: [id number] Sodium Chloride 0.45% 1, 75 825 222 000 ml @ 75 mls/hr IV . [id number] [facility] Rx#:[id number] Sodium Chloride 0.9% 250 15 105 30 ml @ 15 MG/HR 15 mls/hr IV .[id number] [facility] with Hydrocortisone Succinate 250 mg Rx#:[id number] metroNIDAZOLE-NS PMX 500 200 100 100 mg In Saline 1 100ml.bag @ 100 mls/hr IVPB Q6HR [facility] Rx#:[id number] Intake, IV Titration 559.445 150.688 64.257 Amount Dextrose 5% in Water 1, 75 000 ml @ 75 mls/hr IV . [id number] [facility] with Sodium Bicarb (1 Meq/ml) 100 ml Rx#:[id number] Norepinephrine 16 mg In 134.445 50.688 12.466 Dextrose 5% in Water 250 ml @ Titrate IV .Q0M [facility] Rx#:[id number] Propofol 1,000 mg In 100.000 100 51.791 Empty Bag 1 bag @ Titrate IV .Q0M [facility] Rx#: [id number] Vancomycin 1,500 mg In 250 Sodium Chloride 0.9% 250 ml @ 125 mls/hr IVPB Q24HR [facility] Rx#:[id number] Output: Gastric Drainage 30 Urine 390 620 235 Other: Voiding Method Indwelling Catheter Indwelling Catheter Indwelling Catheter # Voids 50 ABP, PAP, CO, CI - Last Documented Arterial Blood Pressure 131/70 - Exam No acute distress, sedated, with a orally placed endotracheal tube and a nasally placed NG tube. HEENT examination is grossly unremarkable. Mucous membranes are moist. Neck supple. Full range of motion. No adenopathy thyromegaly or neck vein distention. Cardiovascular examination reveals regular rhythm rate. S1-S2 normal. No S3 or S4. No discernible murmur noted. Lungs reveal bilaterally equal breath sounds. Some bilateral coarse rhonchi are noted. No wheezes or crackles. Breath sounds equal bilaterally. Abdomen soft without bowel sounds. No masses. No tenderness. Fresh colostomy is noted. Extremities are intact. No cyanosis clubbing or edema. Extremities are cool. Skin is without rash or lesion. Neurologic examination could not be adequately assessed. - Labs CBC & Chem 7: 12/04/17 04:25 12/04/17 04:25 Labs: Abnormal Lab Results - Last 24 Hours (Table) 12/03/17 12/03/17 12/04/17 Range/Units 19:16 23:32 04:10 WBC (3.8-10.6) k/uL RBC (3.80-5.40) m/uL Hgb (11.4-16.0) gm/dL Plt Count (150-450) k/uL Neutrophils # (Manual) (1.3-7.7) k/uL ABG pCO2 32 L (35-45) mmHg ABG HCO3 18 L (21-25) mmol/L ABG O2 Saturation 97.7 H (94-97) % Sodium (137-145) mmol/L Carbon Dioxide (22-30) mmol/L BUN (7-17) mg/dL Creatinine (0.52-1.04) mg/dL Glucose (74-99) mg/dL POC Glucose (mg/dL) 161 H 167 H (75-99) mg/dL Calcium (8.4-10.2) mg/dL 12/04/17 12/04/17 12/04/17 Range/Units 04:25 04:25 05:52 WBC 46.5 H* (3.8-10.6) k/uL RBC 3.73 L (3.80-5.40) m/uL Hgb 11.3 L (11.4-16.0) gm/dL Plt Count 69 L (150-450) k/uL Neutrophils # (Manual) 45.57 H (1.3-7.7) k/uL ABG pCO2 (35-45) mmHg ABG HCO3 (21-25) mmol/L ABG O2 Saturation (94-97) % Sodium 131 L (137-145) mmol/L Carbon Dioxide 18 L (22-30) mmol/L BUN 40 H (7-17) mg/dL Creatinine 1.60 H (0.52-1.04) mg/dL Glucose 157 H (74-99) mg/dL POC Glucose (mg/dL) 160 H (75-99) mg/dL Calcium 7.0 L (8.4-10.2) mg/dL Microbiology - Last 24 Hours (Table) 12/01/17 10:18 Urine Culture - Final Urine,Voided Enterococcus faecalis 12/02/17 Unknown Gram Stain - Preliminary Sputum Sputum Culture - Preliminary Assessment and Plan Assessment: Assessment Postop day #3, status post exploratory laparotomy with lysis of adhesions, partial colectomy, colostomy and ventral hernia repair 2. Postoperative ventilator management Group D enterococcus urinary tract infection Gram-negative bacilli bacteremia, yet to be identified Septic shock, with a likely source being either the GI or tract. Hypotension, secondary to sepsis Lactic acidosis Non-anion gap hyperchloremic metabolic acidosis Hypoalbuminemia History of skin cancer History of hypertension History of DJD History of hypothyroidism Leukocytosis Mild hyponatremia Plan: Plan dated 12/01/2017 The patient is currently receiving adequate fluid resuscitation. She received some Unasyn in the emergency department has been put on Zosyn. The patient's urine does look like it probably is infected. The leukocyte esterase was positive. There was some white blood cells and bacteria as well. The computed tomography scan was consistent with possible pyelonephritis. The patient should get adequate fluid resuscitation and should continue on norepinephrine to maintain a mean arterial pressure of about 65 mmHg. Additional recommendations and suggestions are forthcoming. Typically these patients will turn around rather quickly with appropriate antibiotics and maintenance of blood pressure. Additional recommendations and suggestions are forthcoming. Plan dated 12/02/2017 The patient will remain on the mechanical ventilator. She is requiring a large amount of norepinephrine to maintain blood pressures. We will make some changes. We'll increase her rate from 16 to 22 and we decreased the tidal volume of 550 to 400 mL. The patient will have all her labs x-rays and medications reviewed. We'll make sure she is on good antibiotics. An art line was placed in the operating room yesterday. Prognosis is guarded. We'll continue to follow. Hopefully her sepsis will improve and her blood pressure will improve and will be able to wean her norepinephrine. Additional recommendations and suggestions are forthcoming. Prognosis is guarded. Critical care time 36 minutes Plan dated 12/03/2017 We changed the FiO2 to 35%. There is been a significant improvement in her blood pressure and ability to wean the norepinephrine. The patient remains on sedation with propofol. We continue the hydrocortisone drip 15 mg an hour. The patient's IV will be switched to half-normal saline at 100 mL an hour. In addition, we'll start the patient on a bicarbonate drip. I did spend quite a bit of time talking to the daughter on the phone last night. I likely will speak to her again today. We will get an ionized calcium level. Additional recommendations and suggestions are forthcoming. Prognosis is guarded. I was very honest with the daughter last night. Critical care time 36 minutes Plan dated 12/04/2017 The patient's vent settings are appropriate. Adjustments were made yesterday. She remains on updrafts every 4 hours [id number]. In addition, she is on a bicarbonate drip. Norepinephrine is been weaned off. She will get a sedation holiday today. Microbiology data is reviewed. Chest x-rays consistent with mild fluid overload. She remains on the hydrocortisone drip for relative adrenal insufficiency 15 g per hour. White count 46.5, hemoglobin 11.3, hematocrit 34.1 and platelet count 69,000. Sodium 131, potassium 3.5, chloride 106, and bicarbonate concentration 18. Anion gap is 7. BUN 40 and creatinine 1.60. Medications labs and x-rays are all reviewed. Prognosis remains guarded. Ionized calcium is normal. Critical care time 34 minutes Time with Patient: Greater than 30
[2017-12-04] MEDS ORDERED: ACETAMINOPHEN IV (For NPO) 1,000 MG in EMPTY BAG 1 BAG IVPB PRN (09:29)
[2017-12-04] MEDS: CHLORHEXIDINE GLUCONATE 15 ML CUP MUCOUS MEM SCH (09:30)
[2017-12-04] MEDS: PANTOPRAZOLE 40 MG/10 ML VIAL IV SCH (09:31)
[2017-12-04] MEDS: VANCOMYCIN 1,500 MG in SODIUM CHLORIDE 0.9% 250 ML IVPB SCH (09:40)
[2017-12-04 10:03] LABS: ABG Base Excess -5.7 mmol/L; ABG HCO3 20 mmol/L (21-25); ABG Oxygen Saturation 98.9 % (94-97); ABG PCO2 35 mmHg (35-45); ABG PH 7.36 (7.35-7.45); ABG PO2 106 mmHg (83-108); ABG TCO2 21 mmol/L (19-24)
--- NOTE | 2017-12-04 10:21 | P.PN ---
Subjective Progress Note Date: 12/04/17 Principal diagnosis: Ischemic colitis Patient did well overnight. She is now off of pressors. White blood cell count remains significantly elevated. She is undergoing weaning trials currently. Urine output much improved. Objective - Vital Signs Vital signs: Vital Signs Temp 98.1 F 12/04/17 04:00 Pulse 79 12/04/17 10:15 Resp 22 12/04/17 10:15 BP 118/64 12/04/17 10:15 Pulse Ox 100 12/04/17 10:15 Intake & Output 12/03/17 12/04/17 12/04/17 18:59 06:59 18:59 Intake Total 431.074 2241.688 1053.257 Output Total 390 650 360 Balance 729.824 9552.688 693.257 Weight 99 kg Intake: IV 440.0 1955 989 Dextrose 5% in Water 1, 75 825 297 000 ml @ 75 mls/hr IV . [id number] [facility] with Sodium Bicarb (1 Meq/ml) 100 ml Rx#:[id number] Piperacillin-Tazobactam 3 75.0 100 50 .375 gm In Dextrose/Water 1 50ml.bag @ 12.5 mls/hr IVPB Q8HR [facility] Rx#: [id number] Potassium Chloride 20 meq 200 In Water For Injection 1 100ml.bag @ 50 mls/hr IVPB Q2H [facility] Rx#: [id number] Sodium Chloride 0.45% 1, 75 825 297 000 ml @ 75 mls/hr IV . [id number] [facility] Rx#:[id number] Sodium Chloride 0.9% 250 15 105 45 ml @ 15 MG/HR 15 mls/hr IV .[id number] [facility] with Hydrocortisone Succinate 250 mg Rx#:[id number] metroNIDAZOLE-NS PMX 500 200 100 100 mg In Saline 1 100ml.bag @ 100 mls/hr IVPB Q6HR [facility] Rx#:[id number] Intake, IV Titration 559.445 150.688 64.257 Amount Dextrose 5% in Water 1, 75 000 ml @ 75 mls/hr IV . [id number] [facility] with Sodium Bicarb (1 Meq/ml) 100 ml Rx#:[id number] Norepinephrine 16 mg In 134.445 50.688 12.466 Dextrose 5% in Water 250 ml @ Titrate IV .Q0M [facility] Rx#:[id number] Propofol 1,000 mg In 100.000 100 51.791 Empty Bag 1 bag @ Titrate IV .Q0M [facility] Rx#: [id number] Vancomycin 1,500 mg In 250 Sodium Chloride 0.9% 250 ml @ 125 mls/hr IVPB Q24HR [facility] Rx#:[id number] Output: Gastric Drainage 30 Urine 390 620 360 Other: Voiding Method Indwelling Catheter Indwelling Catheter Indwelling Catheter # Voids 50 ABP, PAP, CO, CI - Last Documented Arterial Blood Pressure 131/70 - Exam Abdomen: Soft, mild distention, incision clean and dry, ostomy pink - Labs CBC & Chem 7: 12/04/17 04:25 12/04/17 04:25 Labs: Abnormal Lab Results - Last 24 Hours (Table) 12/03/17 12/03/17 12/04/17 Range/Units 19:16 23:32 04:10 WBC (3.8-10.6) k/uL RBC (3.80-5.40) m/uL Hgb (11.4-16.0) gm/dL Plt Count (150-450) k/uL Neutrophils # (Manual) (1.3-7.7) k/uL ABG pCO2 32 L (35-45) mmHg ABG HCO3 18 L (21-25) mmol/L ABG O2 Saturation 97.7 H (94-97) % Sodium (137-145) mmol/L Carbon Dioxide (22-30) mmol/L BUN (7-17) mg/dL Creatinine (0.52-1.04) mg/dL Glucose (74-99) mg/dL POC Glucose (mg/dL) 161 H 167 H (75-99) mg/dL Calcium (8.4-10.2) mg/dL 12/04/17 12/04/17 12/04/17 Range/Units 04:25 04:25 05:52 WBC 46.5 H* (3.8-10.6) k/uL RBC 3.73 L (3.80-5.40) m/uL Hgb 11.3 L (11.4-16.0) gm/dL Plt Count 69 L (150-450) k/uL Neutrophils # (Manual) 45.57 H (1.3-7.7) k/uL ABG pCO2 (35-45) mmHg ABG HCO3 (21-25) mmol/L ABG O2 Saturation (94-97) % Sodium 131 L (137-145) mmol/L Carbon Dioxide 18 L (22-30) mmol/L BUN 40 H (7-17) mg/dL Creatinine 1.60 H (0.52-1.04) mg/dL Glucose 157 H (74-99) mg/dL POC Glucose (mg/dL) 160 H (75-99) mg/dL Calcium 7.0 L (8.4-10.2) mg/dL 12/04/17 Range/Units 10:01 WBC (3.8-10.6) k/uL RBC (3.80-5.40) m/uL Hgb (11.4-16.0) gm/dL Plt Count (150-450) k/uL Neutrophils # (Manual) (1.3-7.7) k/uL ABG pCO2 (35-45) mmHg ABG HCO3 20 L (21-25) mmol/L ABG O2 Saturation 98.9 H (94-97) % Sodium (137-145) mmol/L Carbon Dioxide (22-30) mmol/L BUN (7-17) mg/dL Creatinine (0.52-1.04) mg/dL Glucose (74-99) mg/dL POC Glucose (mg/dL) (75-99) mg/dL Calcium (8.4-10.2) mg/dL Microbiology - Last 24 Hours (Table) 12/01/17 10:18 Urine Culture - Final Urine,Voided Enterococcus faecalis 12/02/17 Unknown Gram Stain - Preliminary Sputum Sputum Culture - Preliminary Assessment and Plan (1) Abdominal pain Narrative/Plan: Continue IV antibiotics. Continue weaning trials. Keep nothing by mouth for now. Monitor ischemic changes to her fingers and toes. Current Visit: Yes Status: Acute Code(s): R10.9 - UNSPECIFIED ABDOMINAL PAIN SNOMED Code(s): 64106932
[2017-12-04 12:04] LABS: Glucose,Whole Blood 112 mg/dL (75-99)
--- NOTE | 2017-12-04 12:23 | P.CON ---
Consult Note - . Consult date: 12/04/17 Assessment/Plan:: 77-year-old female who is evaluated today in the intensive care unit in reference to ischemic changes of the first and second digits of the left hand as well as some ischemia of all 10 digits of both feet. Patient was admitted to the hospital on December 01 with a complaint of abdominal pain. The patient was found to be suffering from ischemic colitis requiring urgent laparotomy with partial colectomy and creation of an end ostomy. She was suffering from septic shock and did require fluid resuscitation as well as vasopressor support. During this time of septic shock the patient was found to be suffering from digital skin changes of the left hand and both feet. Per nursing the patient's discoloration of the left hand and both feet have improved since no longer requiring pressure support. There is no previous similar history. Past medical history is significant for ischemic colitis, asthma, osteoarthritis , hypertension, chronic obstructive pulmonary disease as well as hypothyroidism. Past surgical history significant for appendectomy and partial colectomy, hysterectomy bilateral total knee replacement as well as placement of a loop recorder. Medications at this time include Dilaudid [place] sewn, Zosyn, Flagyl, vancomycin, Protonix as well as albuterol. Examination revealed a patient who appeared her stated age who was somewhat confused although relatively alert and cooperative. Examination the neck demonstrated no carotid bruit on the left. Auscultation for bruit on the right was not possible secondary to her surgical dressings which were left intact. Heart was regular without murmur. Lungs were essentially clear bilaterally. Examination lower extremities demonstrates femoral, popliteal and dorsalis pedis pulses be easily palpable bilaterally. There is no significant leg edema noted of either lower extremity. Oddest ischemic changes of the digits of both feet are noted. The toes however are freely movable and nontender. Examination of the upper extremities demonstrated palpable brachial pulses bilaterally as well as axillary pulses bilaterally. The patient currently is in restraints and is difficult to assess radial and/or ulnar pulses. Having said that the first and second digits of the left hand demonstrate ischemic changes which is not full-thickness. The patient can fully extend and flex her fingers of both hands. She does complain of some tenderness to palpation of the first and second digits of the left hand. Laboratory values demonstrated a white cell count of 46.5 and hemoglobin 11.3. Sodium is 131 potassium is 3.5 chloride is 106 and bicarbonate is 18. Impression: Digital ischemia secondary to septic shock and need for vasopressors , now resolving. I would anticipate the ischemic changes to resolve over the next 7-10 days without need for further intervention. Thank you very much for allowing me to participate in the care of your patient. I trust this consultation is useful to you if I can be of future assistance please feel free to contact me.
[2017-12-04] MEDS: HEPARIN SODIUM,PORCINE 5,000 UNIT/ML 1 ML VIAL SQ SCH ×2 (14:30→20:44)
[2017-12-04] MEDS: HYDROmorphone 1 MG/ML 1 ML SYRINGE IVP PRN ×2 (14:39→22:49)
[2017-12-04] MEDS: FLUCONAZOLE IN NACL,ISO-OSM 200 MG in SALINE 1 100ML.BAG IVPB SCH (17:41)
[2017-12-04 18:11] LABS: Glucose,Whole Blood 115 mg/dL (75-99)
[2017-12-04 18:11] LABS: Glucose,Whole Blood 136 mg/dL (75-99)
[2017-12-04] MEDS ORDERED: IPRATROPIUM-ALBUTEROL 3 ML NEB INHALATION PRN (19:49)
[2017-12-04 20:40] LABS: Magnesium 2.3 mg/dL (1.6-2.3); Potassium 3.4 mmol/L (3.5-5.1)
[2017-12-04] MEDS: SODIUM CHLORIDE 0.45% 1,000 ML IV SCH (20:41)
[2017-12-04] MEDS: DEXTROSE 5% IN WATER 1,000 ML with SODIUM BICARB (1 MEQ/ML) 100 ML IV SCH (20:41)
[2017-12-05 00:01] LABS: Glucose,Whole Blood 123 mg/dL (75-99)
--- NOTE | 2017-12-05 00:05 | PN ---
PROGRESS NOTE DATE OF SERVICE: 12/04/2017. REASON FOR FOLLOWUP: Abdominal sepsis: Ischemic bowel. INTERVAL HISTORY: The patient is afebrile. The patient has been extubated this morning. The patient has tolerated extubation. She has been breathing comfortably. Hemodynamically stable off the pressor support. The patient was lethargic at the time of evaluation, unable to provide any history. EXAMINATION: Blood pressure is 109/57 with a pulse of 84, temperature is 97.6. She is 95% on 2L nasal cannula. General description is an elderly female lying in bed in no distress. RESPIRATORY SYSTEM: Unlabored breathing. Clear to auscultation anteriorly. HEART: S1, S2. Regular rate and rhythm. ABDOMEN: Soft. No tenderness. LABS: Hemoglobin was 11.2, white count 46.5. BUN of 14, creatinine 1.60. DIAGNOSTIC IMPRESSION AND PLAN: Patient with abdominal sepsis and may have ischemic bone, status post surgery. The patient has been extubated. White count is still elevated. Patient did have ischemic changes to her fingers and toes, unable to be attributed to elevated white count plus/minus oropharyngeal candidiasis. Diflucan will be added. When to continue with Zosyn. If the cultures remain negative for any methicillin-resistant Staphylococcus aureus, vancomycin will be discontinued, watching her kidney culture function: Continue with supportive care. MMODL / IJN: [id number] /
[2017-12-05] MEDS ORDERED: DEXTROSE 5% IN WATER 250 ML with AMIODARONE 300 MG IV ONE (02:38)
[2017-12-05] MEDS ORDERED: DEXTROSE 5% IN WATER 100 ML with AMIODARONE 150 MG IV ONE (02:45)
[2017-12-05] MEDS: INSULIN ASPART 100 UNIT/ML 1 ML 10 ML VIAL SQ SCH ×5 (03:29→23:44)
[2017-12-05] MEDS: SODIUM CHLORIDE 0.45% 1,000 ML IV SCH ×2 (03:38→20:00)
[2017-12-05] MEDS: AMIODARONE 450 MG in DEXTROSE 5% IN WATER 250 ML IV SCH ×4 (03:58→11:37)
[2017-12-05 04:59] LABS: Basophils % (A) 0 %; Eosinophils % (A) 0 %; HCT 33.2 % (34.0-46.0); HGB 11.2 gm/dL (11.4-16.0); Lymphocytes # (A) 0.4 k/uL (1.0-4.8); Lymphocytes % (A) 1 %; MCH 30.6 pg (25.0-35.0); MCHC 33.6 g/dL (31.0-37.0); MCV 90.8 fL (80.0-100.0); Monocytes % (A) 3 %; Neutrophils # (A) 27.9 k/uL (1.3-7.7); Neutrophils % (A) 94 %; RBC 3.66 m/uL (3.80-5.40); RDW 14.8 % (11.5-15.5)
[2017-12-05 05:10] LABS: Calcium 7.6 mg/dL (8.4-10.2); Magnesium 2.3 mg/dL (1.6-2.3); Phosphorus 3.3 mg/dL (2.5-4.5); Potassium 3.7 mmol/L (3.5-5.1)
[2017-12-05 05:12] LABS: Platelet Count 57 k/uL (150-450); WBC 29.8 k/uL (3.8-10.6)
[2017-12-05 05:29] LABS: Creatine Kinase MB 8.6 ng/mL (0.0-2.4)
[2017-12-05 05:30] LABS: Troponin I 0.079 ng/mL (0.000-0.034)
[2017-12-05] MEDS: DEXTROSE 5% IN WATER 1,000 ML with SODIUM BICARB (1 MEQ/ML) 100 ML IV SCH (05:57)
[2017-12-05] MEDS: HYDROmorphone 1 MG/ML 1 ML SYRINGE IVP PRN ×3 (05:59→20:08)
[2017-12-05 06:25] LABS: Glucose,Whole Blood 137 mg/dL (75-99)
[2017-12-05] MEDS: SODIUM CHLORIDE 0.9% 99 ML with VASOPRESSIN 20 UNIT IV SCH ×2 (06:46)
--- NOTE | 2017-12-05 07:00 | XR ---
EXAMINATION TYPE: XR chest 1V portable DATE OF EXAM: 12/05/2017 HISTORY: Tube placement. REFERENCE: Previous study dated 12/04/2017. FINDINGS: There has been a previous right shoulder hemiarthroplasty. There is a bipolar pacemaker santy ce on the left. The patient is ET tube and NG tube remain in place, unchanged in appearance. A right internal jugular catheter remains in place, also unchanged in appearance. The heart is enlarged. There is left basilar airspace disease. There is right basilar atelectasis. Th ere is mild vascular congestion there is a left-sided effusion. IMPRESSION: NO SIGNIFICANT INTERVAL CHANGE IN THE APPEARANCE OF THE CHEST.
[2017-12-05] MEDS: POTASSIUM CHLORIDE 10 MEQ in WATER FOR INJECTION 1 100ML.BAG IVPB SCH ×2 (07:05→08:56)
[2017-12-05] MEDS ORDERED: VANCOMYCIN TROUGH DUE 1 EACH MISC MISCELLANE ONE (08:00)
[2017-12-05] MEDS: IPRATROPIUM-ALBUTEROL 3 ML NEB INHALATION SCH ×4 (08:11→19:25)
--- NOTE | 2017-12-05 08:19 | P.PN ---
Subjective Progress Note Date: 12/05/17 Principal diagnosis: Abdominal pain/sepsis Progress note dated 12/02/2017 This is a 77-year-old female who we saw yesterday in consultation. She came up from the ER with a picture of sepsis. We weren't sure where the infection was coming from. Based on CAT scan and urinalysis, thought maybe she had a bladder infection or a pyelonephritis. She was also having lower abdominal pain. I spoke to the surgeon yesterday. He decided that he was going to take the patient for an exploratory laparotomy. The patient is postop day #1, status post expiratory laparotomy, lysis of adhesions, partial colectomy with colostomy and ventral hernia repair 2. The patient is currently on the mechanical ventilator on the volume assist control mode. Rate is 16, tidal volume is 550, FiO2 is 40%, and PEEP is 5. Arterial blood gases show a PaO2 of 102 a PaCO2 is 37 and a pH 7.27. This is consistent with metabolic acidosis. The patient is on propofol at 15 mics per kilogram per minute, norepinephrine at 35 mics per minute and a saline IV at 150 an hour. NG tube is in place. Thus far, microbiology is negative. White blood count is 40.8, hemoglobin 13.8 , hematocrit 41.1 and platelet count 173,000. Sodium 1:30 potassium 3.8 chloride 105 CO2 17 anion gap is a BUN/creatinine were 29 and 1.60. Liver function tests are elevated as manifested by an elevated AST and ALT and alkaline phosphatase. Chest x-rays consistent with some mild bibasilar atelectasis and a small left-sided pleural effusion. Progress note dated 12/03/2017 77-year-old female who is postop day #2, status post exploratory laparotomy, lysis of adhesions, partial colectomy with colostomy and ventral hernia repair 2. The patient remains on the mechanical ventilator. She is thought to have severe sepsis. Her vent settings include the volume assist control mode, rate of 22, tidal volume 400, FiO2 to be dropped down to 35% from 40% and a PEEP of 5. Arterial blood gases show a PaO2 of 111 PaCO2 39 and a pH of 7.27. This is consistent with a mild to moderate metabolic acidosis. The FiO2 was dropped from 40-35%. The patient remains on norepinephrine at 15 mics per minute, propofol at 25 mcg/kg/m, hydrocortisone 15 mg an hour and saline IV at 150 an hour. Last night, I chose to give her hydrocortisone IV milligrams IV push and started her on the drip at 15 mg an hour and this seemed to improve her blood pressure so much so that the norepinephrine which was at 52 mcg/m is now at 15 mcg/m. In addition, I did speak to the patient's daughter, Daren, who had some concerns about how her mother's case was being managed. I spent a great deal of time talking to her about various modalities that we use here in the ICU including medications, ventilation, etc. I did offer transfer to a different institution if she felt uncomfortable. I did tell her that I would speak to her again this morning. Chest x-ray is consistent with basilar atelectasis and a small left pleural effusion. Urine culture was positive for group D enterococcus. White blood count is 46.9 hemoglobin and hematocrit were normal and platelet count 104,000. Sodium 134, potassium 3.9, chlorides 110, CO2 16, BUN and creatinine were 39 and 1.76. Anion gap is normal. Progress note dated 12/04/2017 77-year-old female postop day #3, status post exploratory laparotomy, lysis of adhesions, partial colectomy with colostomy and ventral hernia repair 2. The patient remains on the mechanical ventilator. She has made some progress over. Currently on the volume assist control mode with a rate of 22, tidal volume 400, FiO2 35% and PEEP of 5. Arterial blood gases show a PaO2 of 90 PaCO2 of 32 and a pH of 7.35. These arterial blood gases are consistent with a relative hypoxemia and a mild metabolic acidosis. She is on a 0.45 IV at 75 mL an hour. In addition, she's got a dextrose IV with 2 A of sodium bicarbonate at 75 mL an hour. Norepinephrine has been weaned off. She is on propofol at 20 mics per kilogram per minute. We are going to give her a sedation holiday. She is also receiving hydrocortisone at 15 mg per hour. Chest x-ray shows some very mild fluid overload. Urine was positive for group D enterococcus and her blood cultures are positive for gram-negative bacilli, yet to be identified. She is really made significant improvement since starting her on hydrocortisone for relative adrenal insufficiency. I have had daily conversations with the family. Progress note dated 12/05/2017 77-year-old female, postop day #4, status post exploratory laparotomy, lysis of adhesions, partial colectomy and colostomy with ventral hernia repair 2. The patient was extubated yesterday. Currently she is on O2 2 L by nasal cannula. She is receiving hydrocortisone at 15 mg an hour and half normal saline IV at 25 mL an hour dextrose with 2 Amps of sodium bicarbonate at 75 mL an hour and amiodarone at 1 mg/m. She apparently developed some episodes of ventricular tachycardia over the night last night. The patient continues to show improvement. She is currently not complaining of any pain. No respiratory distress or difficulty. Cough wheezing shortness of breath nausea vomiting or diarrhea. Urine culture was positive for Enterococcus faecalis. Blood cultures are thus far still negative. Sputum showed only evidence of Fatoumata. Objective - Vital Signs Vital signs: Vital Signs Temp 98.1 F 12/05/17 04:00 Pulse 84 12/05/17 07:00 Resp 22 12/05/17 07:00 BP 124/67 12/05/17 07:00 Pulse Ox 95 12/05/17 07:00 Intake & Output 12/04/17 12/05/17 12/05/17 18:59 06:59 18:59 Intake Total 2473.257 1480 115 Output Total 940 715 140 Balance 1533.257 765 -25 Weight 96.9 kg Intake: IV 2409 1480 115 Dextrose 5% in Water 1, 897 900 75 000 ml @ 75 mls/hr IV . [id number] [facility] with Sodium Bicarb (1 Meq/ml) 100 ml Rx#:[id number] Piperacillin-Tazobactam 3 50 .375 gm In Dextrose/Water 1 50ml.bag @ 12.5 mls/hr IVPB Q8HR [facility] Rx#: [id number] Potassium Chloride 20 meq 200 In Water For Injection 1 100ml.bag @ 50 mls/hr IVPB Q2H [facility] Rx#: [id number] Sodium Chloride 0.45% 1, 897 400 25 000 ml @ 75 mls/hr IV . [id number] [facility] Rx#:[id number] Sodium Chloride 0.9% 250 165 180 15 ml @ 15 MG/HR 15 mls/hr IV .[id number] [facility] with Hydrocortisone Succinate 250 mg Rx#:[id number] metroNIDAZOLE-NS PMX 500 200 mg In Saline 1 100ml.bag @ 100 mls/hr IVPB Q6HR [facility] Rx#:[id number] Intake, IV Titration 64.257 Amount Norepinephrine 16 mg In 12.466 Dextrose 5% in Water 250 ml @ Titrate IV .Q0M [facility] Rx#:[id number] Propofol 1,000 mg In 51.791 Empty Bag 1 bag @ Titrate IV .Q0M [facility] Rx#: [id number] Output: Gastric Drainage 100 Urine 940 715 40 Other: Voiding Method Indwelling Catheter Indwelling Catheter ABP, PAP, CO, CI - Last Documented Arterial Blood Pressure 131/70 - Exam No acute distress, awake and alert, nasal O2 in place. HEENT examination is grossly unremarkable. Mucous membranes are moist. Neck supple. Full range of motion. No adenopathy thyromegaly or neck vein distention. Cardiovascular examination reveals regular rhythm rate. S1-S2 normal. No S3 or S4. No discernible murmur noted. Lungs reveal bilaterally equal breath sounds. Some bilateral coarse rhonchi are noted. No wheezes or crackles. Breath sounds equal bilaterally. Breath sounds are improved. Abdomen soft without bowel sounds. No masses. No tenderness. Fresh colostomy is noted. Extremities are intact. No cyanosis clubbing or edema. Extremities are cool. Skin is without rash or lesion. Neurologic examination is difficult to assess but she moves all 4 extremities well. - Labs CBC & Chem 7: 12/05/17 04:50 12/05/17 04:50 Labs: Abnormal Lab Results - Last 24 Hours (Table) 12/04/17 12/04/17 12/04/17 Range/Units 10:01 12:02 17:43 WBC (3.8-10.6) k/uL RBC (3.80-5.40) m/uL Hgb (11.4-16.0) gm/dL Hct (34.0-46.0) % Plt Count (150-450) k/uL Neutrophils # (1.3-7.7) k/uL Lymphocytes # (1.0-4.8) k/uL ABG HCO3 20 L (21-25) mmol/L ABG O2 Saturation 98.9 H (94-97) % Sodium (137-145) mmol/L Potassium (3.5-5.1) mmol/L BUN (7-17) mg/dL Creatinine (0.52-1.04) mg/dL Glucose (74-99) mg/dL POC Glucose (mg/dL) 112 H 136 H (75-99) mg/dL Calcium (8.4-10.2) mg/dL CK-MB (CK-2) (0.0-2.4) ng/mL Troponin I (0.000-0.034) ng/mL 12/04/17 12/04/17 12/04/17 Range/Units 18:09 20:20 23:40 WBC (3.8-10.6) k/uL RBC (3.80-5.40) m/uL Hgb (11.4-16.0) gm/dL Hct (34.0-46.0) % Plt Count (150-450) k/uL Neutrophils # (1.3-7.7) k/uL Lymphocytes # (1.0-4.8) k/uL ABG HCO3 (21-25) mmol/L ABG O2 Saturation (94-97) % Sodium (137-145) mmol/L Potassium 3.4 L (3.5-5.1) mmol/L BUN (7-17) mg/dL Creatinine (0.52-1.04) mg/dL Glucose (74-99) mg/dL POC Glucose (mg/dL) 115 H 123 H (75-99) mg/dL Calcium (8.4-10.2) mg/dL CK-MB (CK-2) (0.0-2.4) ng/mL Troponin I (0.000-0.034) ng/mL 12/05/17 12/05/17 12/05/17 Range/Units 04:50 04:50 04:50 WBC 29.8 H* (3.8-10.6) k/uL RBC 3.66 L (3.80-5.40) m/uL Hgb 11.2 L (11.4-16.0) gm/dL Hct 33.2 L (34.0-46.0) % Plt Count 57 L (150-450) k/uL Neutrophils # 27.9 H (1.3-7.7) k/uL Lymphocytes # 0.4 L (1.0-4.8) k/uL ABG HCO3 (21-25) mmol/L ABG O2 Saturation (94-97) % Sodium 135 L (137-145) mmol/L Potassium (3.5-5.1) mmol/L BUN 36 H (7-17) mg/dL Creatinine 1.40 H (0.52-1.04) mg/dL Glucose 134 H (74-99) mg/dL POC Glucose (mg/dL) (75-99) mg/dL Calcium 7.6 L (8.4-10.2) mg/dL CK-MB (CK-2) 8.6 H* (0.0-2.4) ng/mL Troponin I 0.079 H* (0.000-0.034) ng/mL 12/05/17 Range/Units 06:04 WBC (3.8-10.6) k/uL RBC (3.80-5.40) m/uL Hgb (11.4-16.0) gm/dL Hct (34.0-46.0) % Plt Count (150-450) k/uL Neutrophils # (1.3-7.7) k/uL Lymphocytes # (1.0-4.8) k/uL ABG HCO3 (21-25) mmol/L ABG O2 Saturation (94-97) % Sodium (137-145) mmol/L Potassium (3.5-5.1) mmol/L BUN (7-17) mg/dL Creatinine (0.52-1.04) mg/dL Glucose (74-99) mg/dL POC Glucose (mg/dL) 137 H (75-99) mg/dL Calcium (8.4-10.2) mg/dL CK-MB (CK-2) (0.0-2.4) ng/mL Troponin I (0.000-0.034) ng/mL Microbiology - Last 24 Hours (Table) 12/02/17 Unknown Gram Stain - Preliminary Sputum Sputum Culture - Preliminary Fatoumata albicans Assessment and Plan Assessment: Assessment Postop day #3, status post exploratory laparotomy with lysis of adhesions, partial colectomy, colostomy and ventral hernia repair 2. Postoperative ventilator management, status post extubation on December 04 Group D enterococcus urinary tract infection Gram-negative bacilli bacteremia, yet to be identified Septic shock, with a likely source being either the GI or tract. Hypotension, secondary to sepsis Lactic acidosis Non-anion gap hyperchloremic metabolic acidosis Hypoalbuminemia History of skin cancer History of hypertension History of DJD History of hypothyroidism Leukocytosis Mild hyponatremia Plan: Plan dated 12/01/2017 The patient is currently receiving adequate fluid resuscitation. She received some Unasyn in the emergency department has been put on Zosyn. The patient's urine does look like it probably is infected. The leukocyte esterase was positive. There was some white blood cells and bacteria as well. The computed tomography scan was consistent with possible pyelonephritis. The patient should get adequate fluid resuscitation and should continue on norepinephrine to maintain a mean arterial pressure of about 65 mmHg. Additional recommendations and suggestions are forthcoming. Typically these patients will turn around rather quickly with appropriate antibiotics and maintenance of blood pressure. Additional recommendations and suggestions are forthcoming. Plan dated 12/02/2017 The patient will remain on the mechanical ventilator. She is requiring a large amount of norepinephrine to maintain blood pressures. We will make some changes. We'll increase her rate from 16 to 22 and we decreased the tidal volume of 550 to 400 mL. The patient will have all her labs x-rays and medications reviewed. We'll make sure she is on good antibiotics. An art line was placed in the operating room yesterday. Prognosis is guarded. We'll continue to follow. Hopefully her sepsis will improve and her blood pressure will improve and will be able to wean her norepinephrine. Additional recommendations and suggestions are forthcoming. Prognosis is guarded. Critical care time 36 minutes Plan dated 12/03/2017 We changed the FiO2 to 35%. There is been a significant improvement in her blood pressure and ability to wean the norepinephrine. The patient remains on sedation with propofol. We continue the hydrocortisone drip 15 mg an hour. The patient's IV will be switched to half-normal saline at 100 mL an hour. In addition, we'll start the patient on a bicarbonate drip. I did spend quite a bit of time talking to the daughter on the phone last night. I likely will speak to her again today. We will get an ionized calcium level. Additional recommendations and suggestions are forthcoming. Prognosis is guarded. I was very honest with the daughter last night. Critical care time 36 minutes Plan dated 12/04/2017 The patient's vent settings are appropriate. Adjustments were made yesterday. She remains on updrafts every 4 hours [id number]. In addition, she is on a bicarbonate drip. Norepinephrine is been weaned off. She will get a sedation holiday today. Microbiology data is reviewed. Chest x-rays consistent with mild fluid overload. She remains on the hydrocortisone drip for relative adrenal insufficiency 15 g per hour. White count 46.5, hemoglobin 11.3, hematocrit 34.1 and platelet count 69,000. Sodium 131, potassium 3.5, chloride 106, and bicarbonate concentration 18. Anion gap is 7. BUN 40 and creatinine 1.60. Medications labs and x-rays are all reviewed. Prognosis remains guarded. Ionized calcium is normal. Critical care time 34 minutes Plan dated 12/05/2017 The hydrocortisone will be discontinued. The patient's labs x-rays a medications are reviewed. She remains on amiodarone at 1 mg/m because of the ventricular tachycardia last night. Chest x-ray shows essentially no change. Overall her clinical picture has improved. She still very sick and has a long way to go. She'll need to start using the incentive spirometer every hour while awake. We'll cut back the updrafts 4 times a day and when necessary. Prognosis is guarded. Additional recommendations and suggestions are forthcoming. Critical care time is 33 minutes Time with Patient: Greater than 30
[2017-12-05] MEDS: PIPERACILLIN-TAZOBACTAM 3.375 GM in DEXTROSE/WATER 1 50ML.BAG IVPB SCH ×3 (08:54→23:37)
[2017-12-05] MEDS: VANCOMYCIN 1,500 MG in SODIUM CHLORIDE 0.9% 250 ML IVPB SCH (08:56)
[2017-12-05] MEDS: PANTOPRAZOLE 40 MG/10 ML VIAL IV SCH (08:57)
[2017-12-05] MEDS: HEPARIN SODIUM,PORCINE 5,000 UNIT/ML 1 ML VIAL SQ SCH ×2 (09:26→23:32)
[2017-12-05] MEDS ORDERED: ACETAMINOPHEN IV (For NPO) 1,000 MG in EMPTY BAG 1 BAG IVPB ONE (11:00)
--- NOTE | 2017-12-05 11:07 | P.PN ---
Subjective Progress Note Date: 12/05/17 Principal diagnosis: Ischemic colitis Patient was extubated yesterday thankfully. She is thirsty. Mild abdominal discomfort. Denies shortness of breath currently. Adequate urine output. White blood cell count trending down. No ostomy function. Nasogastric tube is bilious. Objective - Vital Signs Vital signs: Vital Signs Temp 98.1 F 12/05/17 07:30 Pulse 72 12/05/17 10:30 Resp 18 12/05/17 10:30 BP 127/67 12/05/17 10:30 Pulse Ox 98 12/05/17 10:30 Intake & Output 12/04/17 12/05/17 12/05/17 18:59 06:59 18:59 Intake Total 2473.257 1480 703.331 Output Total 940 715 350 Balance 1533.257 765 353.331 Weight 96.9 kg Intake: IV 2409 1480 495 Dextrose 5% in Water 1, 897 900 150 000 ml @ 75 mls/hr IV . [id number] [facility] with Sodium Bicarb (1 Meq/ml) 100 ml Rx#:[id number] Piperacillin-Tazobactam 3 50 50 .375 gm In Dextrose/Water 1 50ml.bag @ 12.5 mls/hr IVPB Q8HR [facility] Rx#: [id number] Potassium Chloride 20 meq 200 In Water For Injection 1 100ml.bag @ 50 mls/hr IVPB Q2H [facility] Rx#: [id number] Sodium Chloride 0.45% 1, 897 400 250 000 ml @ 75 mls/hr IV . [id number] [facility] Rx#:[id number] Sodium Chloride 0.9% 250 165 180 45 ml @ 15 MG/HR 15 mls/hr IV .[id number] [facility] with Hydrocortisone Succinate 250 mg Rx#:[id number] metroNIDAZOLE-NS PMX 500 200 mg In Saline 1 100ml.bag @ 100 mls/hr IVPB Q6HR [facility] Rx#:[id number] Intake, IV Titration 64.257 208.331 Amount Amiodarone 450 mg In 208.331 Dextrose 5% in Water 250 ml @ 1 MG/MIN 34.53 mls/ hr IV .Q7H31M [facility] Rx#: [id number] Norepinephrine 16 mg In 12.466 Dextrose 5% in Water 250 ml @ Titrate IV .Q0M [facility] Rx#:[id number] Propofol 1,000 mg In 51.791 Empty Bag 1 bag @ Titrate IV .Q0M [facility] Rx#: [id number] Output: Gastric Drainage 100 Urine 940 715 250 Other: Voiding Method Indwelling Catheter Indwelling Catheter ABP, PAP, CO, CI - Last Documented Arterial Blood Pressure 131/70 - Exam Abdomen: Soft, mild distention, ostomy pink, no function, mild tenderness - Labs CBC & Chem 7: 12/05/17 04:50 12/05/17 04:50 Labs: Abnormal Lab Results - Last 24 Hours (Table) 12/04/17 12/04/17 12/04/17 Range/Units 12:02 17:43 18:09 WBC (3.8-10.6) k/uL RBC (3.80-5.40) m/uL Hgb (11.4-16.0) gm/dL Hct (34.0-46.0) % Plt Count (150-450) k/uL Neutrophils # (1.3-7.7) k/uL Lymphocytes # (1.0-4.8) k/uL Sodium (137-145) mmol/L Potassium (3.5-5.1) mmol/L BUN (7-17) mg/dL Creatinine (0.52-1.04) mg/dL Glucose (74-99) mg/dL POC Glucose (mg/dL) 112 H 136 H 115 H (75-99) mg/dL Calcium (8.4-10.2) mg/dL CK-MB (CK-2) (0.0-2.4) ng/mL Troponin I (0.000-0.034) ng/mL 12/04/17 12/04/17 12/05/17 Range/Units 20:20 23:40 04:50 WBC (3.8-10.6) k/uL RBC (3.80-5.40) m/uL Hgb (11.4-16.0) gm/dL Hct (34.0-46.0) % Plt Count (150-450) k/uL Neutrophils # (1.3-7.7) k/uL Lymphocytes # (1.0-4.8) k/uL Sodium 135 L (137-145) mmol/L Potassium 3.4 L (3.5-5.1) mmol/L BUN 36 H (7-17) mg/dL Creatinine 1.40 H (0.52-1.04) mg/dL Glucose 134 H (74-99) mg/dL POC Glucose (mg/dL) 123 H (75-99) mg/dL Calcium 7.6 L (8.4-10.2) mg/dL CK-MB (CK-2) (0.0-2.4) ng/mL Troponin I (0.000-0.034) ng/mL 12/05/17 12/05/17 12/05/17 Range/Units 04:50 04:50 06:04 WBC 29.8 H* (3.8-10.6) k/uL RBC 3.66 L (3.80-5.40) m/uL Hgb 11.2 L (11.4-16.0) gm/dL Hct 33.2 L (34.0-46.0) % Plt Count 57 L (150-450) k/uL Neutrophils # 27.9 H (1.3-7.7) k/uL Lymphocytes # 0.4 L (1.0-4.8) k/uL Sodium (137-145) mmol/L Potassium (3.5-5.1) mmol/L BUN (7-17) mg/dL Creatinine (0.52-1.04) mg/dL Glucose (74-99) mg/dL POC Glucose (mg/dL) 137 H (75-99) mg/dL Calcium (8.4-10.2) mg/dL CK-MB (CK-2) 8.6 H* (0.0-2.4) ng/mL Troponin I 0.079 H* (0.000-0.034) ng/mL Microbiology - Last 24 Hours (Table) 12/02/17 Unknown Gram Stain - Preliminary Sputum Sputum Culture - Preliminary Fatoumata albicans Assessment and Plan (1) Abdominal pain Narrative/Plan: Continue antibiotics. Keep nothing by mouth for now. Appreciate vascular input regarding the patient's ischemic changes to the fingers and toes. They certainly have show improvement even since yesterday. Gradually increase activity levels. Will follow. Current Visit: Yes Status: Acute Code(s): R10.9 - UNSPECIFIED ABDOMINAL PAIN SNOMED Code(s): 23332798
--- NOTE | 2017-12-05 13:07 | P.CRDCN ---
History of Present Illness Consult date: 12/05/17 History of present illness: This is a 77-year-old femaleWho was admitted to the hospital with a picture of sepsis and subsequently underwent expiratory laparotomy yesterday she was found ischemic bowel and had partial colectomy and colostomy along with ventral hernia repair. Patient is extubated. We're asked to see the patient for episodes of wide-complex tachycardia. The rate is about 120. It appears that could be pacemaker mediated tachycardia. Patient is alert and doesn't appear to be in acute distress. Apparently she had a history of ischemic heart disease. She also has a permanent pacemaker implantation. She follows with a piece cutter out of town. She denies any chest pains at this time. She seemed to be chronically short of breath without any acute issue at this time. We'll going to evaluate patient's pacemaker to see if these episodes are pacemaker mediate tachycardia versus V. tach.Currently patient is on amiodarone along with antibiotics. Further recommendations depend upon the findings on the evaluation of the pacemaker. 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 History of Any Multi-Drug Resistant Organisms: None Reported Past Surgical History: Appendectomy, Hernia Repair, Hysterectomy, Joint Replacement, Orthopedic Surgery, Pacemaker Additional Past Surgical History / Comment(s): TTT, loop recorder, pacemaker, skin cander removal L cheek/skin graft, inguinal hernia repairs x3, total L knee arthroplasty, bilateral knee arthroscopies, partial thyroidectomy, pain clinic procedures (cervical), bilateral lasik eye surgery for vision correction. Past Anesthesia/Blood Transfusion Reactions: No Reported Reaction Type of Cardiac Device: Permanent Pacemaker Device Placement Date:: 2015 Smoking Status: Light tobacco smoker - Past Family History Son(s) Family Medical History: Cancer Additional Family Medical History / Comment(s): TESTICLE Daughter(s) Family Medical History: Cancer Additional Family Medical History / Comment(s): OVARIAN CANCER Mother Family Medical History: Cancer Additional Family Medical History / Comment(s): STOMACH CANCER Father Family Medical History: No Reported History Additional Family Medical History / Comment(s): Father was healthy Medications and Allergies Home Medications Medication Instructions Recorded Confirmed Type Levothyroxine Sodium [Synthroid] 125 mcg PO DAILY 12/26/13 12/01/17 History Losartan/Hydrochlorothiazide 1 tab PO DAILY 08/29/15 12/01/17 History [Hyzaar 100-25 Tablet] Ibuprofen [Motrin] 800 mg PO TID PRN 12/01/17 12/01/17 History Promethaz-Cod 6.25-10 mg/5 ml 5 ml PO Q8H PRN 12/01/17 12/01/17 History [Phenergan with Codeine] predniSONE 40 mg PO AC-BRKFST 12/01/17 12/01/17 History Allergies Allergy/AdvReac Type Severity Reaction Status Date / Time acetaminophen [From [place]] Allergy Nausea & Verified 12/03/17 10:30 Vomiting hydrocodone Allergy Nausea & Verified 12/01/17 10:50 Vomiting hydrocodone bitartrate Allergy Nausea & Verified 12/01/17 10:50 [From Vicodin] Vomiting grass,mold,dust,cats,trees Allergy Unknown Uncoded 11/12/15 11:50 tape Allergy skin Uncoded 11/12/15 11:22 blisters, itching Physical Exam Vitals: Vital Signs Temp Pulse Resp BP Pulse Ox 12/05/17 12:30 74 16 131/71 95 12/05/17 12:00 98 F 75 15 131/71 98 12/05/17 11:49 70 12/05/17 11:41 69 12/05/17 11:30 80 20 121/77 92 L 12/05/17 11:00 73 19 135/74 98 12/05/17 10:30 72 18 127/67 98 12/05/17 10:00 72 15 137/69 98 12/05/17 09:30 70 13 119/64 98 12/05/17 09:00 75 16 130/67 97 12/05/17 08:30 82 24 128/73 94 L 12/05/17 08:21 73 12/05/17 08:13 71 12/05/17 08:00 73 12 121/72 98 12/05/17 07:30 98.1 F 70 18 129/75 97 18 07:00 84 22 124/67 95 12/05/18 06:30 77 29 H 119/66 96 18 06:00 81 28 H 122/64 93 L 19/18 05:30 80 21 119/62 94 L 19/18 05:00 75 14 123/63 96 19/18 04:30 88 15 127/68 95 12/05/18 04:00 98.1 F 78 15 122/65 94 L 12/05/18 03:30 86 18 129/69 94 L 12/05/18 03:00 85 23 121/82 95 12/05/18 02:30 80 12 128/65 97 18 02:00 80 12 114/64 96 18 01:30 84 11 L 122/65 96 12/05/18 01:00 80 10 L 134/64 96 19/18 00:30 78 10 L 117/59 98 18 00:00 98 F 79 11 L 118/62 97 18/18 23:30 79 9 L 117/57 98 18/18 23:00 81 12 115/61 96 18/18 22:30 82 12 119/66 97 18/18 22:00 87 17 113/75 96 18/18 21:37 84 14 117/65 96 18/18 21:30 83 14 117/65 96 18/18 21:00 98 13 113/60 96 18/18 20:30 85 16 105/62 95 18/18 20:00 97.6 F 84 17 109/57 95 18/18 19:30 88 17 96/59 95 18/18 19:00 95 19 113/64 96 /18/18 18:30 80 10 L 109/59 96 /18/18 18:00 81 10 L 104/58 95 18/18 17:30 80 10 L 117/60 94 L /18/18 17:00 83 11 L 116/61 94 L /18/18 16:30 77 10 L 107/56 94 L 18/18 16:02 77 18/18 16:00 97.9 F 76 10 L 107/53 94 L 08/18/18 15:59 12 12/04/17 15:46 75 12/04/17 15:30 75 10 L 104/54 96 12/04/17 15:00 78 12 113/56 97 12/04/17 14:30 85 15 123/68 97 12/04/17 14:00 83 25 H 116/63 97 12/04/17 13:30 84 25 H 111/74 95 Intake and Output 12/04/17 12/05/17 12/05/17 22:59 06:59 14:59 Intake Total 1220 920 881.235 Output Total 450 495 425 Balance 770 425 456.235 Intake: IV 1220 920 645 Dextrose 5% in Water 1, 600 600 150 000 ml @ 75 mls/hr IV . [id number] [facility] with Sodium Bicarb (1 Meq/ml) 100 ml Rx#:[id number] Piperacillin-Tazobactam 3 50 .375 gm In Dextrose/Water 1 50ml.bag @ 12.5 mls/hr IVPB Q8HR OMID Rx#: [id number] Sodium Chloride 0.45% 1, 500 200 400 000 ml @ 75 mls/hr IV . [id number] OMID Rx#:[id number] Sodium Chloride 0.9% 250 120 120 45 ml @ 15 MG/HR 15 mls/hr IV .[id number] OMID with Hydrocortisone Succinate 250 mg Rx#:[id number] Intake, IV Titration 236.235 Amount Amiodarone 450 mg In 236.235 Dextrose 5% in Water 250 ml @ 1 MG/MIN 34.53 mls/ hr IV .Q7H31M OMID Rx#: [id number] Output: Gastric Drainage 100 Urine 450 495 325 Other: Voiding Method Indwelling Catheter Indwelling Catheter Weight 96.9 kg GENERAL EXAM: Patient is alert and oriented and doesn't appear to be in any acute distress HEENT: Normocephalic. Normal reaction of pupils, equal size, normal range of extraocular motion. No erythema or exudates in the throat. NECK: No masses, no nuchal rigidity. CHEST: No chest wall deformity. LUNGS: Diminished breath sounds bilaterally] HEART: [S1 and S2 normal with no audible mumurs or gallops. Regular rhythm, femorals equal on both sides..] ABDOMEN: No hepatosplenomegaly, normal bowel sounds, no guarding or rigidity. SKIN: No rashes CENTRAL NERVOUS SYSTEM: No focal deficits. EXTREMITIES: [No cyanosis, clubbing or edema.] Results 12/05/17 04:50 12/05/17 04:50 Cardiac Enzymes 12/05/17 12/05/17 Range/Units 04:50 11:00 CK-MB (CK-2) 8.6 H* (0.0-2.4) ng/mL Troponin I 0.079 H* 0.056 H* (0.000-0.034) ng/mL CBC 12/05/17 Range/Units 04:50 WBC 29.8 H* (3.8-10.6) k/uL RBC 3.66 L (3.80-5.40) m/uL Hgb 11.2 L (11.4-16.0) gm/dL Hct 33.2 L (34.0-46.0) % Plt Count 57 L (150-450) k/uL Comprehensive Metabolic Panel 12/04/17 12/05/17 Range/Units 20:20 04:50 Sodium 135 L (137-145) mmol/L Potassium 3.4 L 3.7 (3.5-5.1) mmol/L Chloride 106 (98-107) mmol/L Carbon Dioxide 23 (22-30) mmol/L BUN 36 H (7-17) mg/dL Creatinine 1.40 H (0.52-1.04) mg/dL Glucose 134 H (74-99) mg/dL Calcium 7.6 L (8.4-10.2) mg/dL Current Medications Generic Name Dose Route Start Last Admin Trade Name Freq PRN Reason Stop Dose Admin Albuterol/Ipratropium 3 ml 12/04/17 20:00 12/05/17 11:39 Duoneb 0.5 Mg-3 Mg/3 Ml Soln INHALATION 3 ml RT-QID OMID Administration Albuterol/Ipratropium 3 ml 12/04/17 19:49 Duoneb 0.5 Mg-3 Mg/3 Ml Soln INHALATION RT-Q2H PRN Shortness Of Breath Or Wheezing Heparin Sodium (Porcine) 5,000 unit 12/04/17 12:45 12/05/17 09:26 Heparin SQ 5,000 unit Q12HR OMID Administration Hydromorphone HCl 1 mg 12/01/17 12:12 12/02/17 07:38 Dilaudid IVP 1 mg Q2HR PRN Administration Pain Scale 6 to 7 Hydromorphone HCl 0.5 mg 12/01/17 12:12 12/05/17 12:57 Dilaudid IVP 0.5 mg Q2HR PRN Administration Pain Scale 4 to 5 Piperacillin/Tazobactam/ 50 mls @ 12.5 mls/hr 12/01/17 16:00 12/05/17 08:54 Dextrose 3.375 gm/ IV Solution IVPB 12.5 mls/hr Q8HR OMID Administration Norepinephrine Bitartrate 16 250 mls @ 0 mls/hr 12/02/17 00:45 12/04/17 08:00 mg/ Dextrose/Water IV 0 mcg/min .Q0M OMID 0 mls/hr Titration Protocol Titrate Vancomycin HCl 1,500 mg/ 250 mls @ 125 mls/hr 12/02/17 14:00 12/05/17 08:56 Sodium Chloride IVPB 125 mls/hr Q24HR OMID Administration Sodium Chloride 1,000 mls @ 75 mls/hr 12/03/17 09:00 12/05/17 03:38 Saline 0.45% IV 75 mls/hr .[id number] OMID Administration Fluconazole/Sodium Chloride 100 mls @ 100 mls/hr 12/04/17 18:00 12/04/17 17: 41 200 mg/ IV Solution IVPB 100 mls/hr DAILY@1800 OMID Administration Amiodarone HCl 450 mg/ 259 mls @ 34.53 mls/hr 12/05/17 03:00 12/05/17 11:37 Dextrose/Water IV 12/06/17 03:01 0.5 mg/min .Q7H31M OMID 17.26 mls/hr Administration Protocol 1 MG/MIN Ibuprofen 600 mg 12/01/17 16:33 12/01/17 16:55 Motrin PO 600 mg QID PRN Administration Fever Insulin Aspart 0 unit 12/03/17 19:30 12/05/17 06:08 Novolog SQ 1 unit Q6HR OMID Administration Protocol Miscellaneous Information 1 each 12/02/17 07:31 Potassium Per Protocol MISCELLANE DAILY PRN Per Protocol Protocol Naloxone HCl 0.2 mg 12/01/17 12:12 Narcan IV Q2M PRN Opioid Reversal Pantoprazole Sodium 40 mg 12/02/17 09:00 12/05/17 08:57 Protonix IV 40 mg DAILY OMID Administration Intake and Output 12/04/17 12/05/17 12/05/17 22:59 06:59 14:59 Intake Total 1220 920 881.235 Output Total 450 495 425 Balance 770 425 456.235 Intake: IV 1220 920 645 Dextrose 5% in Water 1, 600 600 150 000 ml @ 75 mls/hr IV . [id number] OMID with Sodium Bicarb (1 Meq/ml) 100 ml Rx#:[id number] Piperacillin-Tazobactam 3 50 .375 gm In Dextrose/Water 1 50ml.bag @ 12.5 mls/hr IVPB Q8HR OMID Rx#: [id number] Sodium Chloride 0.45% 1, 500 200 400 000 ml @ 75 mls/hr IV . [id number] OMID Rx#:[id number] Sodium Chloride 0.9% 250 120 120 45 ml @ 15 MG/HR 15 mls/hr IV .[id number] OMID with Hydrocortisone Succinate 250 mg Rx#:[id number] Intake, IV Titration 236.235 Amount Amiodarone 450 mg In 236.235 Dextrose 5% in Water 250 ml @ 1 MG/MIN 34.53 mls/ hr IV .Q7H31M OMID Rx#: [id number] Output: Gastric Drainage 100 Urine 450 495 325 Other: Voiding Method Indwelling Catheter Indwelling Catheter Weight 96.9 kg 12/05/17 04:50 12/05/17 04:50 Assessment and Plan (1) Wide-complex tachycardia Current Visit: Yes Status: Acute Code(s): I47.2 - VENTRICULAR TACHYCARDIA SNOMED Code(s): 991437575 (2) Ischemic colitis Current Visit: Yes Status: Acute Code(s): K55.9 - VASCULAR DISORDER OF INTESTINE, UNSPECIFIED SNOMED Code(s): 03358779 (3) History of permanent cardiac pacemaker placement Current Visit: Yes Status: Acute Code(s): Z95.0 - PRESENCE OF CARDIAC PACEMAKER SNOMED Code(s): 913866623 Plan: We will continue current management. We will interrogate the device to see if these episodes are V. tach versus pacemaker mediated ventricle are tachycardia. We'll may also get an echocardiogram to assess LV function
[2017-12-05 14:03] LABS: Glucose,Whole Blood 114 mg/dL (75-99)
[2017-12-05] MEDS: FLUCONAZOLE IN NACL,ISO-OSM 200 MG in SALINE 1 100ML.BAG IVPB SCH (18:30)
[2017-12-05 23:46] LABS: Glucose,Whole Blood 99 mg/dL (75-99)
--- NOTE | 2017-12-06 00:18 | PN ---
PROGRESS NOTE DATE OF SERVICE: 12/05/2017. REASON FOR FOLLOWUP: Abdominal sepsis. INTERVAL HISTORY: The patient is afebrile, she is hemodynamically more stable. Slightly more awake, alert. No nausea or vomiting has been noticed or any diarrhea. EXAMINATION: Blood pressure 135/70 with a pulse of 87, temperature 98, she is 95% on 2 L nasal cannula. GENERAL DESCRIPTION: An elderly female lying in bed in no distress,. RESPIRATORY SYSTEM: Unlabored breathing. Clear to auscultation anteriorly. HEART: S1, S2. Regular rate and rhythm. ABDOMEN: No tenderness. Still has some changes. LABS: White count 9.8 with a BUN of 36, creatinine 1.40, hematocrit of . DIAGNOSTIC IMPRESSION AND PLAN: Patient admitted to the hospital with abdominal sepsis. The patient did have ischemic bowel, status post laparotomy. showing Enterococcus faecalis. Blood culture with gram-negative, sensitivities still pending after 4 days. The patient to continue with Zosyn and Diflucan will be discontinued. Vancomycin to decrease the risk of nephrotoxicity. Continue supportive care. MMODL / IJN: [id number] /
--- NOTE | 2017-12-06 01:25 | P.PN ---
Subjective Progress Note Date: 12/04/17 Principal diagnosis: Septic shock due to ischemic bowel Patient is 77-year-old female with a known history of hypertension, hypothyroidism, third-degree heart block with pacemaker, colitis/stomach ulcer in the 1970s, migraine headache and COPD and multiple other medical problems came to ER with complaints of abdominal discomfort mainly in the lower abdomen and shakiness. Denied any fever. Denied any cough or sputum production. Patient does have chronic cough but no recent changes. No diarrhea. No headache or dizziness. No chest pain or shortness of breath. Denied any hematuria or dysuria. Patient says her symptoms began last night around 9:30 PM. Symptoms are getting worse and patient presently ER for further evaluation. Patient was hypotensive in the ER and was associated with normal saline 4 L and was started on levofed drip. Patient was transferred to MICU for intensive care. Patient has leukocytosis 14.4, lactic acid 5.5 and slightly abnormal urine sample. Patient was started on antibiotics and general surgery was consulted for possible ischemic colon. Chest x-ray diffuse interstitial pattern. Correlate for mild congestion. CT of the abdominal pelvis showed perinephric stranding on the left with bilateral perinephric fluid. Consider pyelonephritis. No obstruction is evident. Diverticulosis without acute diverticulitis of the sigmoid colon. pancreas prominence of the antiemetic duct Within the body and tail of the pancreas. Follow-up ERCP could be considered. Correlate for acute pancreatitis. 12/02/2017 Patient was intubated postoperatively. Patient had exploratory laparotomy with lysis of adhesions, colectomy and colostomy bag placement and as well as ventral hernia repair. Patient is still requiring high doses of Levophed. Continued on IV hydration and monitor EUGENIA's. Patient was found have severe leukocytosis today at 40.8. Vancomycin and Flagyl was added along with Zosyn. ID was consulted. Next a chest x-ray showed mild bibasilar atelectasis and small left-sided pleural effusion. Pulmonary and general surgery and ID following. 12/03/2017 Patient remains on mechanical ventilator today. Still on pressor support and gradually tapering down. Patient also having metabolic acidosis and was started on bicarb as well. Patient was also started on stress test steroids with hydrocortisone. Otherwise continued on norepinephrine. Chest x-ray showed bibasilar atelectasis and small left pleural effusion. Urine culture showed group B enterococcus. WBC count is still elevated at 46.9. Currently on broad-spectrum antibiotics. Creatinine 1.76 12/05/2017 Patient was successfully extubated today. Patient is off pressor support and otherwise receiving hydrocortisone. Chest x-ray showed small fluid overload. Urine culture showed group B enterococcus and blood cultures positive for gram-negative bacilli Patient was also noted to have discoloration of the fingers. Otherwise patient is being continued on antibiotics in the form of vancomycin and Zosyn. Currently patient is still drowsy. Review of systems could not be obtained from the patient. Current medications reviewed. Objective - Vital Signs Vital signs: Vital Signs Temp 97.6 F 12/04/17 20:00 Pulse 84 12/04/17 20:00 Resp 17 12/04/17 20:00 BP 109/57 12/04/17 20:00 Pulse Ox 95 12/04/17 20:00 Intake & Output 12/04/17 12/04/17 12/05/17 06:59 18:59 06:59 Intake Total 2105.688 2473.257 330 Output Total 650 940 110 Balance 2416.701 6743.257 220 Weight 99 kg Intake: IV 1955 2409 330 Dextrose 5% in Water 1, 825 897 150 000 ml @ 75 mls/hr IV . [id number] [facility] with Sodium Bicarb (1 Meq/ml) 100 ml Rx#:[id number] Piperacillin-Tazobactam 3 100 50 .375 gm In Dextrose/Water 1 50ml.bag @ 12.5 mls/hr IVPB Q8HR OMID Rx#: [id number] Potassium Chloride 20 meq 200 In Water For Injection 1 100ml.bag @ 50 mls/hr IVPB Q2H OMID Rx#: [id number] Sodium Chloride 0.45% 1, 825 897 150 000 ml @ 75 mls/hr IV . [id number] OMID Rx#:[id number] Sodium Chloride 0.9% 250 105 165 30 ml @ 15 MG/HR 15 mls/hr IV .[id number] OMID with Hydrocortisone Succinate 250 mg Rx#:[id number] metroNIDAZOLE-NS PMX 500 100 200 mg In Saline 1 100ml.bag @ 100 mls/hr IVPB Q6HR OMID Rx#:[id number] Intake, IV Titration 150.688 64.257 Amount Norepinephrine 16 mg In 50.688 12.466 Dextrose 5% in Water 250 ml @ Titrate IV .Q0M OMID Rx#:[id number] Propofol 1,000 mg In 100 51.791 Empty Bag 1 bag @ Titrate IV .Q0M OMID Rx#: [id number] Output: Gastric Drainage 30 Urine 620 940 110 Other: Voiding Method Indwelling Catheter Indwelling Catheter ABP, PAP, CO, CI - Last Documented Arterial Blood Pressure 131/70 - Exam PHYSICAL EXAMINATION: Patient is lying in the bed comfortably, patient is drowsy... HEENT: Normocephalic. Neck is supple. Pupils reactive. Nostrils clear. Oral cavity is moist. Ears reveal no drainage. Neck reveals no JVD, carotid bruits, or thyromegaly. CHEST EXAMINATION: Trachea is central. Symmetrical expansion. Bibasilar diminished air entry. No wheezing. CARDIAC: Normal S1, S2 with no gallops. No murmurs ABDOMEN: Soft. Bandage at surgical site. Bowel diminished. Extremities: reveal no edema. No clubbing or cyanosis Neurologically patient is extubated. Otherwise seems very drowsy.. No gross focal deficits noted Skin: No rash or skin lesions. Psychiatric: Could not be assessed. Musculoskeletal: No joint swelling or deformity. - Labs CBC & Chem 7: 12/05/17 04:50 12/05/17 04:50 Labs: Abnormal Lab Results - Last 24 Hours (Table) 12/03/17 12/04/17 12/04/17 Range/Units 23:32 04:10 04:25 WBC (3.8-10.6) k/uL RBC (3.80-5.40) m/uL Hgb (11.4-16.0) gm/dL Plt Count (150-450) k/uL Neutrophils # (Manual) (1.3-7.7) k/uL ABG pCO2 32 L (35-45) mmHg ABG HCO3 18 L (21-25) mmol/L ABG O2 Saturation 97.7 H (94-97) % Sodium 131 L (137-145) mmol/L Potassium (3.5-5.1) mmol/L Carbon Dioxide 18 L (22-30) mmol/L BUN 40 H (7-17) mg/dL Creatinine 1.60 H (0.52-1.04) mg/dL Glucose 157 H (74-99) mg/dL POC Glucose (mg/dL) 167 H (75-99) mg/dL Calcium 7.0 L (8.4-10.2) mg/dL 12/04/1718 12/04/17 Range/Units 04:25 05:52 10:01 WBC 46.5 H* (3.8-10.6) k/uL RBC 3.73 L (3.80-5.40) m/uL Hgb 11.3 L (11.4-16.0) gm/dL Plt Count 69 L (150-450) k/uL Neutrophils # (Manual) 45.57 H (1.3-7.7) k/uL ABG pCO2 (35-45) mmHg ABG HCO3 20 L (21-25) mmol/L ABG O2 Saturation 98.9 H (94-97) % Sodium (137-145) mmol/L Potassium (3.5-5.1) mmol/L Carbon Dioxide (22-30) mmol/L BUN (7-17) mg/dL Creatinine (0.52-1.04) mg/dL Glucose (74-99) mg/dL POC Glucose (mg/dL) 160 H (75-99) mg/dL Calcium (8.4-10.2) mg/dL 12/04/17 12/04/17 12/04/17 Range/Units 12:02 17:43 18:09 WBC (3.8-10.6) k/uL RBC (3.80-5.40) m/uL Hgb (11.4-16.0) gm/dL Plt Count (150-450) k/uL Neutrophils # (Manual) (1.3-7.7) k/uL ABG pCO2 (35-45) mmHg ABG HCO3 (21-25) mmol/L ABG O2 Saturation (94-97) % Sodium (137-145) mmol/L Potassium (3.5-5.1) mmol/L Carbon Dioxide (22-30) mmol/L BUN (7-17) mg/dL Creatinine (0.52-1.04) mg/dL Glucose (74-99) mg/dL POC Glucose (mg/dL) 112 H 136 H 115 H (75-99) mg/dL Calcium (8.4-10.2) mg/dL 12/04/17 Range/Units 20:20 WBC (3.8-10.6) k/uL RBC (3.80-5.40) m/uL Hgb (11.4-16.0) gm/dL Plt Count (150-450) k/uL Neutrophils # (Manual) (1.3-7.7) k/uL ABG pCO2 (35-45) mmHg ABG HCO3 (21-25) mmol/L ABG O2 Saturation (94-97) % Sodium (137-145) mmol/L Potassium 3.4 L (3.5-5.1) mmol/L Carbon Dioxide (22-30) mmol/L BUN (7-17) mg/dL Creatinine (0.52-1.04) mg/dL Glucose (74-99) mg/dL POC Glucose (mg/dL) (75-99) mg/dL Calcium (8.4-10.2) mg/dL Microbiology - Last 24 Hours (Table) 12/02/17 Unknown Gram Stain - Preliminary Sputum Sputum Culture - Preliminary Fatoumata albicans Assessment and Plan Assessment: Septic shock due to pyelonephritis per CT and ischemic colon with lactic acidosis. Off pressor support status post exploratory laparotomy with lysis of adhesions, partial colectomy, colostomy and ventral hernia repair 2. On 12/01/2017 Postoperative intubation. Currently extubated. Leukocytosis, hypotension and tachycardia and lactic acidosis everyday smoker Hypertension Osteoarthritis Hypothyroidism Hypovolemic hyponatremia COPD stable History of skin cancer Third-degree heart block with pacemaker History of colitis/stomach ulcer in 1970 History of GI bleed DVT prophylaxis Plan: Patient be continued on broad-spectrum antibiotics in the form of Zosyn and vancomycin and Flagyl was added.. Continue the IV fluids and pressor support and hydrocortisone. pulmonary is on board. Gen. surgery is following.. further recommendations based on the clinical course. Prognosis is guarded. Time with Patient: Greater than 30
--- NOTE | 2017-12-06 01:29 | P.PN ---
Subjective Progress Note Date: 12/05/17 Principal diagnosis: Septic shock due to ischemic bowel Patient is 77-year-old female with a known history of hypertension, hypothyroidism, third-degree heart block with pacemaker, colitis/stomach ulcer in the 1970s, migraine headache and COPD and multiple other medical problems came to ER with complaints of abdominal discomfort mainly in the lower abdomen and shakiness. Denied any fever. Denied any cough or sputum production. Patient does have chronic cough but no recent changes. No diarrhea. No headache or dizziness. No chest pain or shortness of breath. Denied any hematuria or dysuria. Patient says her symptoms began last night around 9:30 PM. Symptoms are getting worse and patient presently ER for further evaluation. Patient was hypotensive in the ER and was associated with normal saline 4 L and was started on levofed drip. Patient was transferred to MICU for intensive care. Patient has leukocytosis 14.4, lactic acid 5.5 and slightly abnormal urine sample. Patient was started on antibiotics and general surgery was consulted for possible ischemic colon. Chest x-ray diffuse interstitial pattern. Correlate for mild congestion. CT of the abdominal pelvis showed perinephric stranding on the left with bilateral perinephric fluid. Consider pyelonephritis. No obstruction is evident. Diverticulosis without acute diverticulitis of the sigmoid colon. pancreas prominence of the antiemetic duct Within the body and tail of the pancreas. Follow-up ERCP could be considered. Correlate for acute pancreatitis. 12/02/2017 Patient was intubated postoperatively. Patient had exploratory laparotomy with lysis of adhesions, colectomy and colostomy bag placement and as well as ventral hernia repair. Patient is still requiring high doses of Levophed. Continued on IV hydration and monitor EUGENIA's. Patient was found have severe leukocytosis today at 40.8. Vancomycin and Flagyl was added along with Zosyn. ID was consulted. Next a chest x-ray showed mild bibasilar atelectasis and small left-sided pleural effusion. Pulmonary and general surgery and ID following. 12/03/2017 Patient remains on mechanical ventilator today. Still on pressor support and gradually tapering down. Patient also having metabolic acidosis and was started on bicarb as well. Patient was also started on stress test steroids with hydrocortisone. Otherwise continued on norepinephrine. Chest x-ray showed bibasilar atelectasis and small left pleural effusion. Urine culture showed group B enterococcus. WBC count is still elevated at 46.9. Currently on broad-spectrum antibiotics. Creatinine 1.76 12/04/2017 Patient was successfully extubated today. Patient is off pressor support and otherwise receiving hydrocortisone. Chest x-ray showed small fluid overload. Urine culture showed group B enterococcus and blood cultures positive for gram-negative bacilli Patient was also noted to have discoloration of the fingers. Otherwise patient is being continued on antibiotics in the form of vancomycin and Zosyn. Currently patient is still drowsy. 12/05/2017 Patient is awake alert and able to answer simple questions. Complaining of thumb pain. Discoloration improving otherwise. Patient was noted to have ventricular tachycardia last night and was placed on amiodarone drip. Continued on hydrocortisone. Blood pressure is fairly stable. Denied any complaints of chest pain. No nausea vomiting or diarrhea. Urine culture showed enterococcus fecaliths. Blood cultures negative. Sputum culture showed Fatoumata. Pulmonary and cardiology and general surgery is following. Leukocytosis with WBC 29 Review of systems could not be obtained from the patient. Current medications reviewed. Objective - Vital Signs Vital signs: Vital Signs Temp 98 F 12/05/17 12:00 Pulse 87 12/05/17 18:00 Resp 12 12/05/17 18:00 BP 135/70 12/05/17 18:00 Pulse Ox 95 12/05/17 18:00 Intake & Output 12/05/17 12/05/17 12/06/17 06:59 18:59 06:59 Intake Total 1480 1331.235 Output Total 715 725 Balance 765 606.235 Weight 96.9 kg Intake: IV 1480 1095 Dextrose 5% in Water 1, 900 150 000 ml @ 75 mls/hr IV . [id number] [facility] with Sodium Bicarb (1 Meq/ml) 100 ml Rx#:[id number] Piperacillin-Tazobactam 3 50 .375 gm In Dextrose/Water 1 50ml.bag @ 12.5 mls/hr IVPB Q8HR [facility] Rx#: [id number] Sodium Chloride 0.45% 1, 400 850 000 ml @ 75 mls/hr IV . [id number] [facility] Rx#:[id number] Sodium Chloride 0.9% 250 180 45 ml @ 15 MG/HR 15 mls/hr IV .[id number] [facility] with Hydrocortisone Succinate 250 mg Rx#:[id number] Intake, IV Titration 236.235 Amount Amiodarone 450 mg In 236.235 Dextrose 5% in Water 250 ml @ 1 MG/MIN 34.53 mls/ hr IV .[id number] [facility] Rx#: [id number] Output: Gastric Drainage 150 Urine 715 575 Other: Voiding Method Indwelling Catheter Indwelling Catheter ABP, PAP, CO, CI - Last Documented Arterial Blood Pressure 131/70 - Exam PHYSICAL EXAMINATION: Patient is lying in the bed comfortably, patient is drowsy... HEENT: Normocephalic. Neck is supple. Pupils reactive. Nostrils clear. Oral cavity is moist. Ears reveal no drainage. Neck reveals no JVD, carotid bruits, or thyromegaly. CHEST EXAMINATION: Trachea is central. Symmetrical expansion. Bibasilar diminished air entry. No wheezing. CARDIAC: Normal S1, S2 with no gallops. No murmurs ABDOMEN: Soft. Bandage at surgical site. Bowel diminished. Extremities: reveal no edema. No clubbing or cyanosis Neurologically patient is extubated. Otherwise seems very drowsy.. No gross focal deficits noted Skin: No rash or skin lesions. Psychiatric: Could not be assessed. Musculoskeletal: No joint swelling or deformity. - Labs CBC & Chem 7: 12/05/17 04:50 12/05/17 04:50 Labs: Abnormal Lab Results - Last 24 Hours (Table) 12/04/17 12/04/17 12/05/17 Range/Units 20:20 23:40 04:50 WBC (3.8-10.6) k/uL RBC (3.80-5.40) m/uL Hgb (11.4-16.0) gm/dL Hct (34.0-46.0) % Plt Count (150-450) k/uL Neutrophils # (1.3-7.7) k/uL Lymphocytes # (1.0-4.8) k/uL Sodium 135 L (137-145) mmol/L Potassium 3.4 L (3.5-5.1) mmol/L BUN 36 H (7-17) mg/dL Creatinine 1.40 H (0.52-1.04) mg/dL Glucose 134 H (74-99) mg/dL POC Glucose (mg/dL) 123 H (75-99) mg/dL Calcium 7.6 L (8.4-10.2) mg/dL CK-MB (CK-2) (0.0-2.4) ng/mL Troponin I (0.000-0.034) ng/mL 12/05/17 12/05/17 12/05/17 Range/Units 04:50 04:50 06:04 WBC 29.8 H* (3.8-10.6) k/uL RBC 3.66 L (3.80-5.40) m/uL Hgb 11.2 L (11.4-16.0) gm/dL Hct 33.2 L (34.0-46.0) % Plt Count 57 L (150-450) k/uL Neutrophils # 27.9 H (1.3-7.7) k/uL Lymphocytes # 0.4 L (1.0-4.8) k/uL Sodium (137-145) mmol/L Potassium (3.5-5.1) mmol/L BUN (7-17) mg/dL Creatinine (0.52-1.04) mg/dL Glucose (74-99) mg/dL POC Glucose (mg/dL) 137 H (75-99) mg/dL Calcium (8.4-10.2) mg/dL CK-MB (CK-2) 8.6 H* (0.0-2.4) ng/mL Troponin I 0.079 H* (0.000-0.034) ng/mL 12/05/17 12/05/17 Range/Units 11:00 14:00 WBC (3.8-10.6) k/uL RBC (3.80-5.40) m/uL Hgb (11.4-16.0) gm/dL Hct (34.0-46.0) % Plt Count (150-450) k/uL Neutrophils # (1.3-7.7) k/uL Lymphocytes # (1.0-4.8) k/uL Sodium (137-145) mmol/L Potassium (3.5-5.1) mmol/L BUN (7-17) mg/dL Creatinine (0.52-1.04) mg/dL Glucose (74-99) mg/dL POC Glucose (mg/dL) 114 H (75-99) mg/dL Calcium (8.4-10.2) mg/dL CK-MB (CK-2) (0.0-2.4) ng/mL Troponin I 0.056 H* (0.000-0.034) ng/mL Microbiology - Last 24 Hours (Table) 12/02/17 Unknown Gram Stain - Final Sputum Sputum Culture - Final Fatoumata albicans Assessment and Plan Assessment: Septic shock due to pyelonephritis per CT and ischemic colon with lactic acidosis. Off pressor support status post exploratory laparotomy with lysis of adhesions, partial colectomy, colostomy and ventral hernia repair 2. On 12/01/2017 Postoperative intubation. Currently extubated. Left hand discoloration and thumb pain due to ischemia. Leukocytosis, hypotension and tachycardia and lactic acidosis everyday smoker Hypertension Osteoarthritis Hypothyroidism Hypovolemic hyponatremia COPD stable History of skin cancer Third-degree heart block with pacemaker History of colitis/stomach ulcer in 1969 History of GI bleed DVT prophylaxis Plan: Patient be continued on broad-spectrum antibiotics in the form of Zosyn and vancomycin and Flagyl was added.. Continue the IV fluids and pressor support and hydrocortisone. Started on amiodarone drip due to ventricular tachycardia. pulmonary and cardiology is on board. Gen. surgery is following.. further recommendations based on the clinical course. Prognosis is guarded. Time with Patient: Greater than 30
[2017-12-06] MEDS: HYDROmorphone 1 MG/ML 1 ML SYRINGE IVP PRN ×5 (02:38→21:03)
[2017-12-06 02:43] LABS: Glucose,Whole Blood 92 mg/dL (75-99)
[2017-12-06 04:33] LABS: Basophils % (A) 0 %; Eosinophils % (A) 0 %; HCT 32.3 % (34.0-46.0); Lymphocytes # (A) 0.7 k/uL (1.0-4.8); Lymphocytes % (A) 4 %; MCH 31.1 pg (25.0-35.0); MCV 91.3 fL (80.0-100.0); Mean Platelet Volume 8.7; Monocytes # (A) 1.3 k/uL (0-1.0); Monocytes % (A) 8 %; Neutrophils # (A) 14.4 k/uL (1.3-7.7); Neutrophils % (A) 85 %; Platelet Count 68 k/uL (150-450); RBC 3.54 m/uL (3.80-5.40); RDW 14.9 % (11.5-15.5); WBC 16.9 k/uL (3.8-10.6)
[2017-12-06 04:58] LABS: Calcium 7.8 mg/dL (8.4-10.2); Magnesium 2.3 mg/dL (1.6-2.3); Potassium 3.5 mmol/L (3.5-5.1)
[2017-12-06] MEDS: SODIUM CHLORIDE 0.45% 1,000 ML IV SCH ×2 (05:44→09:29)
[2017-12-06] MEDS: POTASSIUM CHLORIDE 20 MEQ in WATER FOR INJECTION 1 100ML.BAG IVPB SCH ×2 (06:14→09:29)
[2017-12-06] MEDS: INSULIN ASPART 100 UNIT/ML 1 ML 10 ML VIAL SQ SCH ×3 (06:14→17:46)
[2017-12-06 06:34] LABS: Glucose,Whole Blood 80 mg/dL (75-99)
[2017-12-06] MEDS: IPRATROPIUM-ALBUTEROL 3 ML NEB INHALATION SCH ×4 (08:16→19:32)
--- NOTE | 2017-12-06 08:23 | XR ---
EXAMINATION TYPE: XR chest 1V portable DATE OF EXAM: 12/06/2017 COMPARISON: 12/05/2017 INDICATION: Tube placement, right upper lobe infiltrate TECHNIQUE: Single frontal view of the chest is obtained. FINDINGS: The heart size is mildly prominent. The pulmonary vasculature is normal. There is a consolidation in the right upper lobe. Some right perihilar infiltrate is present. There i s silhouetting the left diaphragm. Minimal effusion may be at the right base. Pacemaker overlies left chest. Nasogastric tube remains in position. Right central venous catheter is present with the tip in the pr oximal right atrium. No pneumothorax is evident. IMPRESSION: 1. Right upper lobe infiltrate. Correlate for pneumonia. 2. Left retrocardiac infiltrate and/or effusion. 3. Lines and catheters discussed above, stable in position
--- NOTE | 2017-12-06 09:20 | ECHOF ---
Referral Reason:V. tach MEASUREMENTS -------- HEIGHT: 157.5 cm WEIGHT: 81.7 kg BP: RVIDd: 2.9 cm (< 3.3) IVSd: 1.0 cm (0.6 - 1.1) LVIDd: 5.0 cm (3.9 - 5.3) LVPWd: 1.0 cm (0.6 - 1.1) IVSs: 1.4 cm LVIDs: 3.6 cm LVPWs: 1.3 cm LA Diam: 4.0 cm (2.7 - 3.8) LAESV Index (A-L): 45.23 ml/m Ao Diam: 2.5 cm (2.0 - 3.7) AV Cusp: 1.6 cm (1.5 - 2.6) LA Diam: 4.1 cm (2.7 - 3.8) MV EXCURSION: 18.048 mm (> 18.000) MV EF SLOPE: 72 mm/s (70 - 150) EPSS: 0.6 cm MV E Derek: 0.71 m/s MV DecT: 232 ms MV A Derek: 0.88 m/s MV E/A Ratio: 0.80 RAP: 5.00 mmHg RVSP: 27.75 mmHg FINDINGS -------- Paced rhythm. This was a technically adequate study. The left ventricular size is normal. There is borderline concentric left ventricular hypertrophy. Overall left ventricular systolic function is low-normal with, an EF between 50 - 55 %. The right ventricle is normal in size. LA is severely dilated >40 ml/m2 The right atrial size is normal. There is mild aortic valve sclerosis. There is no evidence of aortic regurgitation. Mild mitral annular calcification present. Bfzw-uv-fiexurls mitral regurgitation is present. Mild tricuspid regurgitation present. There is no evidence of pulmonary hypertension. The right v entricular systolic pressure, as measured by Doppler, is 27.75mmHg. The pulmonic valve was not well visualized. There is no pulmonic regurgitation present. The aortic root size is normal. There is no pericardial effusion. CONCLUSIONS -------- 1. The left ventricular size is normal. 2. There is borderline concentric left ventricular hypertrophy. 3. Overall left ventricular systolic function is low-normal with, an EF between 50 - 55 %. 4. LA is severely dilated >40 ml/m2 5. There is mild aortic valve sclerosis. 6. Mild mitral annular calcification present. 7. Dzsp-ox-otjizlll mitral regurgitation is present. 8. Mild tricuspid regurgitation present. 9. There is no evidence of pulmonary hypertension. 10. There is no pulmonic regurgitation present. 11. The aortic root size is normal. 12. There is no pericardial effusion. BEHAVIOR INTERVENTIONIST: Essence Oneil RDCS
[2017-12-06] MEDS: PIPERACILLIN-TAZOBACTAM 3.375 GM in DEXTROSE/WATER 1 50ML.BAG IVPB SCH ×2 (10:02→15:02)
[2017-12-06] MEDS: HEPARIN SODIUM,PORCINE 5,000 UNIT/ML 1 ML VIAL SQ SCH ×2 (10:03→20:05)
[2017-12-06] MEDS: PANTOPRAZOLE 40 MG/10 ML VIAL IV SCH (10:06)
--- NOTE | 2017-12-06 10:45 | P.PN ---
Subjective Progress Note Date: 12/13/17 This is a 77-year-old female who underwent surgery for a ischemic bowel. Patient is slowly recovering. She seemed to be oriented to place and person. Denies any chest pain. Complains of pain in her toes. Patient has some ischemic changes in the both toes and also fingers. Patient was on high dose of Levophed for hypotension. Patient was evaluated by vascular surgery and apparently there doesn't seem to be any active ischemia. Conservative management is suggested. Estimated have device was checked. Patient did not have V. tach. The wide complex tachycardia appears to be pacemaker tracking atrial tachycardia. She is off amiodarone. We'll continue monitoring her. If she has any episodes of atrial tachycardia, we'll treat her with IV beta kamaljit Objective - Vital Signs Vital signs: Vital Signs Temp 98.3 F 12/06/17 04:00 Pulse 83 12/06/17 08:27 Resp 14 12/06/17 07:00 BP 133/68 12/06/17 07:00 Pulse Ox 93 L 12/06/17 07:00 Intake & Output 12/05/17 12/06/17 12/06/17 18:59 06:59 18:59 Intake Total 1331.235 900 75 Output Total 725 880 35 Balance 606.235 20 40 Weight 100.1 kg 100.1 kg Intake: IV 1095 900 75 Dextrose 5% in Water 1, 150 000 ml @ 75 mls/hr IV . [id number] [facility] with Sodium Bicarb (1 Meq/ml) 100 ml Rx#:[id number] Piperacillin-Tazobactam 3 50 .375 gm In Dextrose/Water 1 50ml.bag @ 12.5 mls/hr IVPB Q8HR [facility] Rx#: [id number] Sodium Chloride 0.45% 1, 850 900 75 000 ml @ 75 mls/hr IV . [id number] [facility] Rx#:[id number] Sodium Chloride 0.9% 250 45 ml @ 15 MG/HR 15 mls/hr IV .[id number] [facility] with Hydrocortisone Succinate 250 mg Rx#:[id number] Intake, IV Titration 236.235 Amount Amiodarone 450 mg In 236.235 Dextrose 5% in Water 250 ml @ 1 MG/MIN 34.53 mls/ hr IV .[id number] [facility] Rx#: [id number] Output: Gastric Drainage 150 100 Urine 575 780 35 Other: Voiding Method Indwelling Catheter Indwelling Catheter ABP, PAP, CO, CI - Last Documented Arterial Blood Pressure 131/70 - Exam GENERAL EXAM: Patient is alert and oriented and doesn't appear to be in any acute distress HEENT: Normocephalic. Normal reaction of pupils, equal size, normal range of extraocular motion. No erythema or exudates in the throat. NECK: No masses, no nuchal rigidity. CHEST: Diminished breath sounds LUNGS: Equal air entry with no crackles or wheeze. HEART: S1 and S2 normal with no audible mumurs or gallops. Regular rhythm, femorals equal on both sides.. ABDOMEN: Postsurgical SKIN: No rashes CENTRAL NERVOUS SYSTEM: No focal deficits. EXTREMITIES: No cyanosis, clubbing or edema. - Labs CBC & Chem 7: 12/06/17 04:15 12/06/17 04:15 Labs: Abnormal Lab Results - Last 24 Hours (Table) 12/05/17 12/05/17 12/06/17 Range/Units 11:00 14:00 04:15 WBC (3.8-10.6) k/uL RBC (3.80-5.40) m/uL Hgb (11.4-16.0) gm/dL Hct (34.0-46.0) % Plt Count (150-450) k/uL Neutrophils # (1.3-7.7) k/uL Lymphocytes # (1.0-4.8) k/uL Monocytes # (0-1.0) k/uL Sodium 136 L (137-145) mmol/L Chloride 108 H (98-107) mmol/L BUN 36 H (7-17) mg/dL Creatinine 1.43 H (0.52-1.04) mg/dL POC Glucose (mg/dL) 114 H (75-99) mg/dL Calcium 7.8 L (8.4-10.2) mg/dL Troponin I 0.056 H* (0.000-0.034) ng/mL 12/06/17 Range/Units 04:15 WBC 16.9 H (3.8-10.6) k/uL RBC 3.54 L (3.80-5.40) m/uL Hgb 11.0 L (11.4-16.0) gm/dL Hct 32.3 L (34.0-46.0) % Plt Count 68 L (150-450) k/uL Neutrophils # 14.4 H (1.3-7.7) k/uL Lymphocytes # 0.7 L (1.0-4.8) k/uL Monocytes # 1.3 H (0-1.0) k/uL Sodium (137-145) mmol/L Chloride (98-107) mmol/L BUN (7-17) mg/dL Creatinine (0.52-1.04) mg/dL POC Glucose (mg/dL) (75-99) mg/dL Calcium (8.4-10.2) mg/dL Troponin I (0.000-0.034) ng/mL Microbiology - Last 24 Hours (Table) 12/02/17 Unknown Gram Stain - Final Sputum Sputum Culture - Final Fatoumata albicans Assessment and Plan (1) Wide-complex tachycardia Current Visit: Yes Status: Acute Code(s): I47.2 - VENTRICULAR TACHYCARDIA SNOMED Code(s): 746449231 (2) Ischemic colitis Current Visit: Yes Status: Acute Code(s): K55.9 - VASCULAR DISORDER OF INTESTINE, UNSPECIFIED SNOMED Code(s): 25471324 (3) History of permanent cardiac pacemaker placement Current Visit: Yes Status: Acute Code(s): Z95.0 - PRESENCE OF CARDIAC PACEMAKER SNOMED Code(s): 510776166 Plan: We will continue current management. We will interrogate the device to see if these episodes are V. tach versus pacemaker mediated ventricle are tachycardia. We'll may also get an echocardiogram to assess LV function. Patient doesn't have any recurrence of arrhythmias which appear to be atrial tachycardia tract by the pacemaker. If necessary will give IV beta kamaljit. Amiodarone has been discontinued
[2017-12-06] MEDS ORDERED: MVI, ADULT NO.4 WITH VIT K 10 ML, TRACE (CONC-1ML/DOSE) 1 ML in AMINO ACID 5%-D15W+LYTE... IV ONE ×3 (12:00)
[2017-12-06] MEDS ORDERED: DEXTROSE 50%-WATER 50 ML SYRINGE IVP ONE (12:22)
[2017-12-06 12:41] LABS: Glucose,Whole Blood 58 mg/dL (75-99)
[2017-12-06 13:02] LABS: Glucose,Whole Blood 125 mg/dL (75-99)
--- NOTE | 2017-12-06 14:01 | P.PN ---
Subjective Progress Note Date: 12/06/17 On today's evaluation of 12/06/2017, the patient is awake and alert. NG tube is in place. The patient has been nothing by mouth for the past 5 days as the patient underwent a extensive laparotomy, transverse colectomy, diverticulitis to vt, repair of a ventral hernia 2. The patient came in with septic condition related to an underlying enterococcal urine checked infection subsequently she developed abdominal pain and presentation was typical of ischemic colitis. The patient underwent expiratory laparotomy in that regard. She was severely hemodynamics unstable and the patient required high doses of pressors and IV fluids and ultimately she improved to the point where she is currently off pressors. She developed some ischemia in the right foot and she is complaining of pain in the right lower extremity. This ischemia related to severe hypotension and use of high dose of pressors. At this point in time the skin is mottled and there is some areas of ecchymosis nevertheless the patient has adequate pulses in lower extremities bilaterally and vascular surgery evaluated the limbs. No signs of any gangrenous changes at this point in time. The patient currently extubated. The patient is currently on oxygen by nasal cannula. No respiratory distress. No cough or sputum production. No abdominal pain. The colostomy site is still nonfunctional. The tissue itself is viable and bowel sounds are absent at this point in time. TPN is being considered by general surgery. Antibiotic coverage includes IV Diflucan and IV Zosyn. The most recent blood cultures showing anaerobic growth in the blood probably of a intra-abdominal source and the urine cultures showing enterococcus faecalis, penicillin sensitive. The patient remains on IV Zosyn. The sputum is showing Fatoumata which is a colonizer. The chest x-ray from today shows a upper lobe infiltrate and left retrocardiac infiltration. No other abnormalities otherwise noted. Objective - Vital Signs Vital signs: Vital Signs Temp 98.0 F 12/06/17 12:00 Pulse 82 12/06/17 13:00 Resp 23 12/06/17 13:00 BP 134/66 12/06/17 13:00 Pulse Ox 91 L 12/06/17 13:00 Intake & Output 12/05/17 12/06/17 12/06/17 18:59 06:59 18:59 Intake Total 1331.235 900 775.0 Output Total 725 880 600 Balance 606.235 20 175.0 Weight 100.1 kg 100.1 kg Intake: IV 1095 900 575.0 Dextrose 5% in Water 1, 150 000 ml @ 75 mls/hr IV . [id number] [facility] with Sodium Bicarb (1 Meq/ml) 100 ml Rx#:[id number] Piperacillin-Tazobactam 3 50 50.0 .375 gm In Dextrose/Water 1 50ml.bag @ 12.5 mls/hr IVPB Q8HR [facility] Rx#: [id number] Sodium Chloride 0.45% 1, 850 900 525 000 ml @ 75 mls/hr IV . [id number] [facility] Rx#:[id number] Sodium Chloride 0.9% 250 45 ml @ 15 MG/HR 15 mls/hr IV .[id number] [facility] with Hydrocortisone Succinate 250 mg Rx#:[id number] Intake, IV Titration 236.235 200 Amount Amiodarone 450 mg In 236.235 Dextrose 5% in Water 250 ml @ 1 MG/MIN 34.53 mls/ hr IV .Q7H31M [facility] Rx#: [id number] Potassium Chloride 20 meq 200 In Water For Injection 1 100ml.bag @ 50 mls/hr IVPB Q2H [facility] Rx#: [id number] Output: Gastric Drainage 150 100 Urine 575 780 600 Other: Voiding Method Indwelling Catheter Indwelling Catheter Indwelling Catheter ABP, PAP, CO, CI - Last Documented Arterial Blood Pressure 131/70 - Exam No acute distress, awake and alert, nasal O2 in place. The patient has an NG tube in place and output has been only 100 mL over the past 8 hours. HEENT examination is grossly unremarkable. Mucous membranes are moist. Neck supple. Full range of motion. No adenopathy thyromegaly or neck vein distention. Cardiovascular examination reveals regular rhythm rate. S1-S2 normal. No S3 or S4. No discernible murmur noted. Lungs reveal bilaterally equal breath sounds. Some bilateral coarse rhonchi are noted. No wheezes or crackles. Breath sounds equal bilaterally. Breath sounds are improved. Abdomen soft without bowel sounds. No masses. No tenderness. Fresh colostomy is noted. The patient has a colostomy site is viable. No output is in the colostomy bag. Bowel sounds are absent at this point. No abdominal distention. The patient has sumaya with retention sutures holding the abdominal wound together. Extremities are intact. Examination of the extremities revealed easily palpable radial, femoral and pedal pulses. There was no cyanosis, clubbing or edema. SkinExamination of the skin revealed no evidence of significant rashes, suspicious appearing nevi or other concerning lesions. The wound description as above Neurologic examination is difficult to assess but she moves all 4 extremities well. - Labs CBC & Chem 7: 12/06/17 04:15 12/06/17 04:15 Labs: Abnormal Lab Results - Last 24 Hours (Table) 12/05/17 12/06/17 12/06/17 Range/Units 14:00 04:15 04:15 WBC 16.9 H (3.8-10.6) k/uL RBC 3.54 L (3.80-5.40) m/uL Hgb 11.0 L (11.4-16.0) gm/dL Hct 32.3 L (34.0-46.0) % Plt Count 68 L (150-450) k/uL Neutrophils # 14.4 H (1.3-7.7) k/uL Lymphocytes # 0.7 L (1.0-4.8) k/uL Monocytes # 1.3 H (0-1.0) k/uL Sodium 136 L (137-145) mmol/L Chloride 108 H (98-107) mmol/L BUN 36 H (7-17) mg/dL Creatinine 1.43 H (0.52-1.04) mg/dL POC Glucose (mg/dL) 114 H (75-99) mg/dL Calcium 7.8 L (8.4-10.2) mg/dL Albumin (3.5-5.0) g/dL Triglycerides (<150) mg/dL 12/06/17 12/06/17 12/06/17 Range/Units 11:10 11:10 12:19 WBC (3.8-10.6) k/uL RBC (3.80-5.40) m/uL Hgb (11.4-16.0) gm/dL Hct (34.0-46.0) % Plt Count (150-450) k/uL Neutrophils # (1.3-7.7) k/uL Lymphocytes # (1.0-4.8) k/uL Monocytes # (0-1.0) k/uL Sodium (137-145) mmol/L Chloride (98-107) mmol/L BUN (7-17) mg/dL Creatinine (0.52-1.04) mg/dL POC Glucose (mg/dL) 58 L (75-99) mg/dL Calcium (8.4-10.2) mg/dL Albumin 2.1 L (3.5-5.0) g/dL Triglycerides 211 H (<150) mg/dL 12/06/17 Range/Units 12:42 WBC (3.8-10.6) k/uL RBC (3.80-5.40) m/uL Hgb (11.4-16.0) gm/dL Hct (34.0-46.0) % Plt Count (150-450) k/uL Neutrophils # (1.3-7.7) k/uL Lymphocytes # (1.0-4.8) k/uL Monocytes # (0-1.0) k/uL Sodium (137-145) mmol/L Chloride (98-107) mmol/L BUN (7-17) mg/dL Creatinine (0.52-1.04) mg/dL POC Glucose (mg/dL) 125 H (75-99) mg/dL Calcium (8.4-10.2) mg/dL Albumin (3.5-5.0) g/dL Triglycerides (<150) mg/dL Microbiology - Last 24 Hours (Table) 12/01/17 08:20 Blood Culture Gram Stain - Preliminary Blood Blood Culture - Preliminary Anaerobic Gm Negative Bacilli 12/02/17 Unknown Gram Stain - Final Sputum Sputum Culture - Final Fatoumata albicans Assessment and Plan Plan: Assessment 1 acute septic shock secondary to UTI and subsequent ischemic colitis and the patient has enterococcal faecalis in in her urine and anaerobes and the blood culture. The patient is covered with a combination of Diflucan and Zosyn. The patient is postop day #4 regarding extremity laparotomy, colectomy, lysis of adhesions, diverticular colostomy and ventral hernia repair. 2 profound hypotension, recovered and the patient is currently hemodynamically stable 3 enterococcus faecalis in the urine, UTI 4 septicemia secondary to anaerobes, likely of a gastrointestinal source/ ischemic colitis 5 ischemic right lower extremity/foot, improving and the patient has regained pulses in the right lower extremity and there is no evidence of any gangrenous transformation 6 lactic acidosis, recovered 7 hypoproteinemia and hypomagnesemia secondary to above, initiating TPN 8 hypertension 9 hypothyroidism 10 acute kidney injury improving 11 leukocytosis, improving Plan Continue same antibiotic coverage. Initiate TPN for nutritional support. Keep NG tube in place. Monitor the output from the colostomy site. Increased level of previous tolerated. Abdominal wound is dry clean and intact at this point. Will need to restart Synthroid IV at the half of a dose 75 g daily. DVT and GI prophylaxis. We'll continue to follow. Condition remains critical. The patient on a maintenance fluid of half-normal saline today to 62.5 mL an hour and this will be obviously Once the Patient Started on TPN for Nutritional Support.
[2017-12-06] MEDS: LEVOTHYROXINE IVP 100 MCG/5 ML VIAL IV SCH (14:21)
--- NOTE | 2017-12-06 15:18 | P.PN ---
Subjective 77-year-old admitted secondary to ischemic colitis underwent a laparotomy transverse colectomy found to have diverticulitis as well and had a ventral hernia repair patient is in ICU for septic shock shock improved patient has enterococcus in the urine and gram-negative to anaerobic bacteria in the blood repeat blood cultures were obtained. Patient is on Zosyn to cover the still patient is also on empiric Diflucan vancomycin was discontinued patient is off pressor support patient remains to have an G2 patient does have TPN in place. NG tube is still draining. By the time I evaluated the patient patient received a narcotics for pain because of which the patient is bit sleepy and bit confused although was asking appropriate questions like when her NG tube will be out. Has sluggish bowel sounds on exam. Objective - Vital Signs Vital signs: Vital Signs Temp 98.0 F 12/06/17 12:00 Pulse 82 12/06/17 13:00 Resp 23 12/06/17 13:00 BP 134/66 12/06/17 13:00 Pulse Ox 91 L 12/06/17 13:00 Intake & Output 12/05/17 12/06/17 12/06/17 18:59 06:59 18:59 Intake Total 1331.235 900 775.0 Output Total 725 880 600 Balance 606.235 20 175.0 Weight 100.1 kg 100.1 kg Intake: IV 1095 900 575.0 Dextrose 5% in Water 1, 150 000 ml @ 75 mls/hr IV . [id number] [facility] with Sodium Bicarb (1 Meq/ml) 100 ml Rx#:[id number] Piperacillin-Tazobactam 3 50 50.0 .375 gm In Dextrose/Water 1 50ml.bag @ 12.5 mls/hr IVPB Q8HR [facility] Rx#: [id number] Sodium Chloride 0.45% 1, 850 900 525 000 ml @ 75 mls/hr IV . [id number] [facility] Rx#:[id number] Sodium Chloride 0.9% 250 45 ml @ 15 MG/HR 15 mls/hr IV .[id number] [facility] with Hydrocortisone Succinate 250 mg Rx#:[id number] Intake, IV Titration 236.235 200 Amount Amiodarone 450 mg In 236.235 Dextrose 5% in Water 250 ml @ 1 MG/MIN 34.53 mls/ hr IV .[id number] [facility] Rx#: [id number] Potassium Chloride 20 meq 200 In Water For Injection 1 100ml.bag @ 50 mls/hr IVPB Q2H [facility] Rx#: [id number] Output: Gastric Drainage 150 100 Urine 575 780 600 Other: Voiding Method Indwelling Catheter Indwelling Catheter Indwelling Catheter ABP, PAP, CO, CI - Last Documented Arterial Blood Pressure 131/70 - Exam PHYSICAL EXAMINATION: GENERAL: Drowsy, arousable and able to assess his orientation HEENT: Pupils are round and equally reacting to light. EOMI. No scleral icterus. No conjunctival pallor. Normocephalic, atraumatic. No pharyngeal erythema. No thyromegaly. CARDIOVASCULAR: S1 and S2 present. No murmurs, rubs, or gallops. PULMONARY: Chest is clear to auscultation, no wheezing or crackles. ABDOMEN: Sluggish bowel sounds NG tube in place colostomy bag in place MUSCULOSKELETAL: No joint swelling or deformity. EXTREMITIES: No cyanosis, clubbing, or pedal edema. NEUROLOGICAL: Gross neurological examination did not reveal any focal deficits. SKIN: No rashes. - Labs CBC & Chem 7: 12/06/17 04:15 12/06/17 04:15 Labs: Abnormal Lab Results - Last 24 Hours (Table) 12/06/17 12/06/17 12/06/17 Range/Units 04:15 04:15 11:10 WBC 16.9 H (3.8-10.6) k/uL RBC 3.54 L (3.80-5.40) m/uL Hgb 11.0 L (11.4-16.0) gm/dL Hct 32.3 L (34.0-46.0) % Plt Count 68 L (150-450) k/uL Neutrophils # 14.4 H (1.3-7.7) k/uL Lymphocytes # 0.7 L (1.0-4.8) k/uL Monocytes # 1.3 H (0-1.0) k/uL Sodium 136 L (137-145) mmol/L Chloride 108 H (98-107) mmol/L BUN 36 H (7-17) mg/dL Creatinine 1.43 H (0.52-1.04) mg/dL POC Glucose (mg/dL) (75-99) mg/dL Calcium 7.8 L (8.4-10.2) mg/dL Albumin 2.1 L (3.5-5.0) g/dL Triglycerides (<150) mg/dL 12/06/17 12/06/17 12/06/17 Range/Units 11:10 12:19 12:42 WBC (3.8-10.6) k/uL RBC (3.80-5.40) m/uL Hgb (11.4-16.0) gm/dL Hct (34.0-46.0) % Plt Count (150-450) k/uL Neutrophils # (1.3-7.7) k/uL Lymphocytes # (1.0-4.8) k/uL Monocytes # (0-1.0) k/uL Sodium (137-145) mmol/L Chloride (98-107) mmol/L BUN (7-17) mg/dL Creatinine (0.52-1.04) mg/dL POC Glucose (mg/dL) 58 L 125 H (75-99) mg/dL Calcium (8.4-10.2) mg/dL Albumin (3.5-5.0) g/dL Triglycerides 211 H (<150) mg/dL Microbiology - Last 24 Hours (Table) 12/01/17 08:20 Blood Culture Gram Stain - Preliminary Blood Blood Culture - Preliminary Anaerobic Gm Negative Bacilli 12/02/17 Unknown Gram Stain - Final Sputum Sputum Culture - Final Fatoumata albicans Assessment and Plan Plan: -Septic shock shock resolved secondary to colitis. Patient is on Zosyn patient has enterococcus in the urine significant of which is unknown although Zosyn, covers that organism as well. 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
[2017-12-06] MEDS: FAT EMULSION 20% 250 ML in EMPTY BAG 1 BAG IV SCH (15:19)
--- NOTE | 2017-12-06 15:49 | P.PN ---
Progress Note - Text Progress Note Date: 12/06/17 The patient is resting comfortably in her bed. She has some complaints of incisional pain. On exam her vital signs appear stable. Her abdomen is soft. Her incision site is clean dry intact. There are retention sutures in place. Her colostomy is pink with some output. Status post colectomy with colostomy for ischemic bowel. Patient will have her diet advanced slowly 1 she has bowel function. Apparently TPN has been ordered for today.
[2017-12-06] MEDS ORDERED: Potassium Replacement Protocol 1 EACH MISC MISCELLANE PRN (17:44)
[2017-12-06 18:06] LABS: Glucose,Whole Blood 89 mg/dL (75-99)
[2017-12-06] MEDS: POTASSIUM CHLORIDE 10 MEQ in WATER FOR INJECTION 1 100ML.BAG IVPB SCH ×2 (18:31→20:33)
[2017-12-06] MEDS: FLUCONAZOLE IN NACL,ISO-OSM 200 MG in SALINE 1 100ML.BAG IVPB SCH (18:53)
[2017-12-07] LABS: Glucose,Whole Blood 90 mg/dL (75-99)
[2017-12-07] MEDS: PIPERACILLIN-TAZOBACTAM 3.375 GM in DEXTROSE/WATER 1 50ML.BAG IVPB SCH ×4 (00:03→23:01)
[2017-12-07] MEDS: HYDROmorphone 1 MG/ML 1 ML SYRINGE IVP PRN ×5 (00:03→15:44)
[2017-12-07] MEDS: INSULIN ASPART 100 UNIT/ML 1 ML 10 ML VIAL SQ SCH ×5 (00:03→23:49)
[2017-12-07 04:59] LABS: Calcium 8.1 mg/dL (8.4-10.2); Phosphorus 2.7 mg/dL (2.5-4.5); Potassium 3.8 mmol/L (3.5-5.1)
[2017-12-07 05:07] LABS: Basophils % (A) 0 %; Eosinophils # (A) 0.2 k/uL (0-0.7); Eosinophils % (A) 2 %; HGB 11.3 gm/dL (11.4-16.0); Lymphocytes # (A) 0.7 k/uL (1.0-4.8); Lymphocytes % (A) 6 %; MCH 30.1 pg (25.0-35.0); MCHC 32.5 g/dL (31.0-37.0); MCV 92.8 fL (80.0-100.0); Mean Platelet Volume 8.3; Monocytes % (A) 8 %; Neutrophils # (A) 10.7 k/uL (1.3-7.7); Neutrophils % (A) 82 %; RBC 3.77 m/uL (3.80-5.40); RDW 14.7 % (11.5-15.5)
[2017-12-07 05:14] LABS: Platelet Count 93 k/uL (150-450)
[2017-12-07] MEDS: POTASSIUM CHLORIDE 10 MEQ in WATER FOR INJECTION 1 100ML.BAG IVPB SCH ×2 (06:14→07:34)
[2017-12-07 06:20] LABS: Glucose,Whole Blood 91 mg/dL (75-99)
--- NOTE | 2017-12-07 07:56 | PN ---
PROGRESS NOTE DATE OF SERVICE: 12/06/2017 REASON FOR FOLLOWUP: Abdominal sepsis, ischemic colitis. INTERVAL HISTORY: The patient is afebrile. She is more awake and alert today. She is breathing comfortably. Complaining of pain in her fingers and toes area. No chest pain, shortness of breath or cough. Abdominal pain is currently controlled. No nausea, no vomiting. PHYSICAL EXAMINATION: On examination, blood pressure 158/73 with a pulse of 90, temperature 97.5. She is 93% on 4 L nasal cannula. General description is an elderly female lying in bed in no distress. RESPIRATORY SYSTEM: Unlabored breathing, clear to auscultation anteriorly. HEART: S1, S2. Regular rate and rhythm. ABDOMEN: Soft, no tenderness. No guarding or rigidity. LABS: White count of 16.9. BUN of 36, creatinine 1.43. DIAGNOSTIC IMPRESSION AND PLAN: Patient with abdominal sepsis from ischemic colitis status post colectomy in a patient who did have anaerobic gram-negative bacteremia. Patient is currently covered with Zosyn and Diflucan that will be continued for now. White count has shown a downward trend. Continue with supportive care. MMODL / IJN: [id number] /
--- NOTE | 2017-12-07 08:11 | XR ---
EXAMINATION TYPE: XR chest 1V portable DATE OF EXAM: 12/07/2017 CLINICAL HISTORY: Difficulty breathing progress study. TECHNIQUE: Single AP portable upright view of the chest is obtained. COMPARISON: Chest x-ray from one day earlier and older studies. FINDINGS: There is stable appearance of nasogastric tube and right internal jugular central venous c atheter. There is persistent cardiomegaly with dual lead pacemaker. There is background chronic paren chymal change with persistent central opacities including more prominent left basilar and right upper lobe opacities. These have progressed over last few days but not significantly changed from most rec ent x-ray. Suspect small bilateral pleural effusions. No pneumothorax is seen bilaterally. Surgical c hanges right humeral head level is redemonstrated. IMPRESSION: Overall stable findings from one day earlier, chronic parenchymal change and cardiomegal y with bilateral diffuse edema and/or infiltrates with more suspicious focal infiltrate in the right upper lung and left basilar region. Suspect small left greater than right pleural effusions. Correlat e for CHF and/or multifocal pneumonia.
[2017-12-07] MEDS: LEVOTHYROXINE IVP 100 MCG/5 ML VIAL IV SCH (09:04)
[2017-12-07] MEDS: PANTOPRAZOLE 40 MG/10 ML VIAL IV SCH (09:04)
[2017-12-07] MEDS: HEPARIN SODIUM,PORCINE 5,000 UNIT/ML 1 ML VIAL SQ SCH ×2 (09:04→20:14)
[2017-12-07] MEDS: IPRATROPIUM-ALBUTEROL 3 ML NEB INHALATION SCH ×5 (09:06→20:04)
[2017-12-07] MEDS ORDERED: FUROSEMIDE 10 MG/ML 4 ML VIAL IV STA (09:27)
--- NOTE | 2017-12-07 09:56 | P.PN ---
Subjective Progress Note Date: 12/07/17 On today's evaluation of 12/06/2017, the patient is awake and alert. NG tube is in place. The patient has been nothing by mouth for the past 5 days as the patient underwent a extensive laparotomy, transverse colectomy, diverticulitis to me, repair of a ventral hernia 2. The patient came in with septic condition related to an underlying enterococcal urine checked infection subsequently she developed abdominal pain and presentation was typical of ischemic colitis. The patient underwent expiratory laparotomy in that regard. She was severely hemodynamics unstable and the patient required high doses of pressors and IV fluids and ultimately she improved to the point where she is currently off pressors. She developed some ischemia in the right foot and she is complaining of pain in the right lower extremity. This ischemia related to severe hypotension and use of high dose of pressors. At this point in time the skin is mottled and there is some areas of ecchymosis nevertheless the patient has adequate pulses in lower extremities bilaterally and vascular surgery evaluated the limbs. No signs of any gangrenous changes at this point in time. The patient currently extubated. The patient is currently on oxygen by nasal cannula. No respiratory distress. No cough or sputum production. No abdominal pain. The colostomy site is still nonfunctional. The tissue itself is viable and bowel sounds are absent at this point in time. TPN is being considered by general surgery. Antibiotic coverage includes IV Diflucan and IV Zosyn. The most recent blood cultures showing anaerobic growth in the blood probably of a intra-abdominal source and the urine cultures showing enterococcus faecalis, penicillin sensitive. The patient remains on IV Zosyn. The sputum is showing Fatoumata which is a colonizer. The chest x-ray from today shows a upper lobe infiltrate and left retrocardiac infiltration. No other abnormalities otherwise noted. On today's evaluation of a 2017, the patient is still awake and alert. She remains nothing by mouth. No bowel sounds. No bowel activity. Colostomy site is viable. There is no output within the colostomy bag. Bowel sounds are absent. NG tube is in place. Output from the NG tube has been to 50 mL for yesterday. The patient's net fluid balance is +6 26 mL over the past 24 hours. TPN was started yesterday for nutritional support. Noted the patient was septic. She has a enterococcus faecalis in the urine and anaerobic gram- negative bacillus and the blood and the patient remains on same antibiotic coverage including a combination of Zosyn and Diflucan. Furthermore, the chest x-ray from today shows development of patchy breath and pulmonary infiltrates. There is a right upper lobe infiltration left lower lobe infiltration which raises the concern for a superimposed pneumonia was at its ventilator as. Rule out healthcare associated or aspiration type. The patient has a congested cough. Unable to bring up much sputum. At this point in time, she is on oxygen at 2 L/m nasal cannula and his saturations around 95%. She is not spiking a fever and her white cell count is down to 13. Also, she still complaining of pain in lower extremity and she has decent pulses in lower extremities bilaterally. No altered mentation. No other significant events overnight. Objective - Vital Signs Vital signs: Vital Signs Temp 97.5 F L 12/07/17 04:00 Pulse 90 12/07/17 09:18 Resp 13 12/07/17 07:00 BP 166/75 12/07/17 07:00 Pulse Ox 97 12/07/17 07:00 Intake & Output 12/06/17 12/07/17 12/07/17 18:59 06:59 18:59 Intake Total 1738.5 1025.0 Output Total 1200 1465 Balance 538.5 -440.0 Weight 100.1 kg 100.5 kg Intake: IV 1062.5 1025.0 Piperacillin-Tazobactam 3 87.5 50.0 .375 gm In Dextrose/Water 1 50ml.bag @ 12.5 mls/hr IVPB Q8HR [facility] Rx#: [id number] Potassium Chloride 10 meq 300 In Water For Injection 1 100ml.bag @ 100 mls/hr IVPB Q1H [facility] Rx#: [id number] Sodium Chloride 0.45% 1, 975 675 000 ml @ 75 mls/hr IV . [id number] [facility] Rx#:[id number] Intake, IV Titration 676 Amount Fat Emulsion 20% 250 ml 126 In Empty Bag 1 bag @ 21 mls/hr IV DAILY@1600 [facility] Rx#:[id number] Fluconazole in NaCl,Iso- 100 Osm 200 mg In Saline 1 100ml.bag @ 100 mls/hr IVPB DAILY@1800 [facility] Rx#: [id number] Mvi, Adult No.4 with Vit 150 K 10 ml Trace (Conc-1Ml/ Dose) 1 ml In Amino Acid 5%-D15w+Lytes*E* 1,000 ml @ 30 mls/hr IV .Q24H [facility] Rx#:[id number] Potassium Chloride 10 meq 100 In Water For Injection 1 100ml.bag @ 100 mls/hr IVPB Q1H [facility] Rx#: [id number] Potassium Chloride 20 meq 200 In Water For Injection 1 100ml.bag @ 50 mls/hr IVPB Q2H [facility] Rx#: [id number] Output: Gastric Drainage 100 Urine 1100 1465 Other: Voiding Method Indwelling Catheter Indwelling Catheter ABP, PAP, CO, CI - Last Documented Arterial Blood Pressure 131/70 - Exam No acute distress, awake and alert, nasal O2 in place. The patient has an NG tube in place and output has been only 100 mL over the past 8 hours. HEENT examination is grossly unremarkable. Mucous membranes are moist. Neck supple. Full range of motion. No adenopathy thyromegaly or neck vein distention. Cardiovascular examination reveals regular rhythm rate. S1-S2 normal. No S3 or S4. No discernible murmur noted. Lungs reveal bilaterally equal breath sounds. Some bilateral coarse rhonchi are noted. No wheezes or crackles. Breath sounds equal bilaterally. Breath sounds are improved. Abdomen soft without bowel sounds. No masses. No tenderness. Fresh colostomy is noted. The patient has a colostomy site is viable. No output is in the colostomy bag. Bowel sounds are absent at this point. No abdominal distention. The patient has sumaya with retention sutures holding the abdominal wound together. Extremities are intact. Examination of the extremities revealed easily palpable radial, femoral and pedal pulses. There was no cyanosis, clubbing or edema. SkinExamination of the skin revealed no evidence of significant rashes, suspicious appearing nevi or other concerning lesions. The wound description as above Neurologic examination is difficult to assess but she moves all 4 extremities well. - Labs CBC & Chem 7: 12/07/17 04:26 12/07/17 04:26 Labs: Abnormal Lab Results - Last 24 Hours (Table) 12/06/17 12/06/17 12/06/17 Range/Units 11:10 11:10 12:19 WBC (3.8-10.6) k/uL RBC (3.80-5.40) m/uL Hgb (11.4-16.0) gm/dL Plt Count (150-450) k/uL Neutrophils # (1.3-7.7) k/uL Lymphocytes # (1.0-4.8) k/uL Chloride (98-107) mmol/L BUN (7-17) mg/dL Creatinine (0.52-1.04) mg/dL POC Glucose (mg/dL) 58 L (75-99) mg/dL Calcium (8.4-10.2) mg/dL Albumin 2.1 L (3.5-5.0) g/dL Triglycerides 211 H (<150) mg/dL 12/06/17 12/07/17 12/07/17 Range/Units 12:42 04:26 04:26 WBC 13.0 H (3.8-10.6) k/uL RBC 3.77 L (3.80-5.40) m/uL Hgb 11.3 L (11.4-16.0) gm/dL Plt Count 93 L (150-450) k/uL Neutrophils # 10.7 H (1.3-7.7) k/uL Lymphocytes # 0.7 L (1.0-4.8) k/uL Chloride 108 H (98-107) mmol/L BUN 30 H (7-17) mg/dL Creatinine 1.10 H (0.52-1.04) mg/dL POC Glucose (mg/dL) 125 H (75-99) mg/dL Calcium 8.1 L (8.4-10.2) mg/dL Albumin (3.5-5.0) g/dL Triglycerides (<150) mg/dL Microbiology - Last 24 Hours (Table) 12/01/17 08:20 Blood Culture Gram Stain - Preliminary Blood Blood Culture - Preliminary Anaerobic Gm Negative Bacilli Assessment and Plan Plan: Assessment 1 acute septic shock secondary to UTI and subsequent ischemic colitis and the patient has enterococcal faecalis in in her urine and anaerobes and the blood culture. The patient is covered with a combination of Diflucan and Zosyn. The patient is postop day #5 regarding extremity laparotomy, colectomy, lysis of adhesions, diverticular colostomy and ventral hernia repair. The patient has no bowel activity. No output through the colostomy bag. NG tube is in place. The patient was started on TPN for nutritional support. 2 profound hypotension, recovered and the patient is currently hemodynamically stable 3 enterococcus faecalis in the urine, UTI 4 septicemia secondary to anaerobes, likely of a gastrointestinal source/ ischemic colitis 5 ischemic right lower extremity/foot, improving and the patient has regained pulses in the right lower extremity and there is no evidence of any gangrenous transformation 6 lactic acidosis, recovered 7 hypoproteinemia and hypoalbuminemia secondary to above, currently on TPN 8 hypertension 9 hypothyroidism 10 acute kidney injury improving 11 leukocytosis, improving 12 patchy bilateral pulmonary infiltrates. LV function is within normal limits. This is likely a pneumonia and pneumonia is favored over CHF special that the patient has patchy by the pulmonary filtrates mainly in the right upper lobe and left lower lobe. Plan Continue same antibiotic coverage. Discussed addition of vancomycin with infectious disease. Clinical patient improved the white cell count is on the patient is afebrile yet development of bilateral patchy pulmonary infiltrates is concerning. We'll cut down the IV fluids to KVO. We'll give the patient dose of Lasix 40 mg IV push. Continue TPN for nutritional support. Continue Zosyn and Diflucan. Abdominal wound is dry clean and intact. Continue using incentive spirometer. Moderate output from the NG tube. Monitor the output in the colostomy bag. We'll continue the rest of the supportive care. We'll continue to follow in ICU.
[2017-12-07] MEDS: SODIUM CHLORIDE 0.45% 1,000 ML IV SCH ×2 (09:59→20:15)
[2017-12-07 12:17] LABS: Glucose,Whole Blood 103 mg/dL (75-99)
[2017-12-07] MEDS: 1: MVI, ADULT NO.4 WITH VIT K 10 ML, TRACE (CONC-1ML/DOSE) 1 ML in AMINO ACID 5%-D15W+LY IV SCH ×3 (14:38)
--- NOTE | 2017-12-07 14:53 | P.PN ---
Subjective Progress Note Date: 12/07/17 Objective - Vital Signs Vital signs: Vital Signs Temp 98 F 12/07/17 12:00 Pulse 87 12/07/17 14:00 Resp 13 12/07/17 14:00 BP 152/77 12/07/17 14:00 Pulse Ox 94 L 12/07/17 14:00 Intake & Output 12/06/17 12/07/17 12/07/17 18:59 06:59 18:59 Intake Total 1738.5 1025.0 496.0 Output Total 1200 1465 5000 Balance 538.5 -440.0 -4504.0 Weight 100.1 kg 100.5 kg Intake: IV 1062.5 1025.0 496.0 0.9 for pressure 21 Amino Acid 5%-D15w+Lytes* 250 E* 1,000 ml @ 70 mls/hr IV .BY DURATION [facility] Rx#: [id number] Piperacillin-Tazobactam 3 87.5 50.0 50.0 .375 gm In Dextrose/Water 1 50ml.bag @ 12.5 mls/hr IVPB Q8HR [facility] Rx#: [id number] Potassium Chloride 10 meq 300 In Water For Injection 1 100ml.bag @ 100 mls/hr IVPB Q1H [facility] Rx#: [id number] Sodium Chloride 0.45% 1, 975 675 175 000 ml @ 5 mls/hr IV . Q24H [facility] Rx#:[id number] Intake, IV Titration 676 Amount Fat Emulsion 20% 250 ml 126 In Empty Bag 1 bag @ 21 mls/hr IV DAILY@1600 [facility] Rx#:[id number] Fluconazole in NaCl,Iso- 100 Osm 200 mg In Saline 1 100ml.bag @ 100 mls/hr IVPB DAILY@1800 [facility] Rx#: [id number] Mvi, Adult No.4 with Vit 150 K 10 ml Trace (Conc-1Ml/ Dose) 1 ml In Amino Acid 5%-D15w+Lytes*E* 1,000 ml @ 30 mls/hr IV .Q24H [facility] Rx#:[id number] Potassium Chloride 10 meq 100 In Water For Injection 1 100ml.bag @ 100 mls/hr IVPB Q1H [facility] Rx#: [id number] Potassium Chloride 20 meq 200 In Water For Injection 1 100ml.bag @ 50 mls/hr IVPB Q2H [facility] Rx#: [id number] Output: Gastric Drainage 100 100 Urine 1100 1465 4900 Other: Voiding Method Indwelling Catheter Indwelling Catheter Indwelling Catheter ABP, PAP, CO, CI - Last Documented Arterial Blood Pressure 131/70 - Constitutional General appearance: Present: cooperative - Gastrointestinal Gastrointestinal Comment(s): Abdomen soft. Incision is clean dry intact. Colostomy has a small amount of liquid stool. - Labs CBC & Chem 7: 12/07/17 04:26 12/07/17 04:26 Labs: Abnormal Lab Results - Last 24 Hours (Table) 12/07/17 12/07/17 12/07/17 Range/Units 04:26 04:26 12:03 WBC 13.0 H (3.8-10.6) k/uL RBC 3.77 L (3.80-5.40) m/uL Hgb 11.3 L (11.4-16.0) gm/dL Plt Count 93 L (150-450) k/uL Neutrophils # 10.7 H (1.3-7.7) k/uL Lymphocytes # 0.7 L (1.0-4.8) k/uL Chloride 108 H (98-107) mmol/L BUN 30 H (7-17) mg/dL Creatinine 1.10 H (0.52-1.04) mg/dL POC Glucose (mg/dL) 103 H (75-99) mg/dL Calcium 8.1 L (8.4-10.2) mg/dL Microbiology - Last 24 Hours (Table) 12/01/17 08:20 Blood Culture Gram Stain - Final Blood Blood Culture - Final Bacteroides fragilis Assessment and Plan Assessment: Status post colectomy with colostomy for skin of bowel. Patient slowly improving.
--- NOTE | 2017-12-07 14:55 | P.PN ---
Subjective 77-year-old admitted secondary to ischemic colitis underwent a laparotomy transverse colectomy found to have diverticulitis as well and had a ventral hernia repair patient is in ICU for septic shock shock improved patient has enterococcus in the urine and gram-negative to anaerobic bacteria in the blood repeat blood cultures were obtained. Patient is on Zosyn to cover the still patient is also on empiric Diflucan vancomycin was discontinued patient is off pressor support patient remains to have an G2 patient does have TPN in place. NG tube is still draining. By the time I evaluated the patient patient received a narcotics for pain because of which the patient is bit sleepy and bit confused although was asking appropriate questions like when her NG tube will be out. Has sluggish bowel sounds on exam. 12/07/2017 Patient the continues to have an G2 no significant improvement compared to yesterday. Patient is on TPN at this time. Objective - Vital Signs Vital signs: Vital Signs Temp 98 F 12/07/17 12:00 Pulse 87 12/07/17 14:00 Resp 13 12/07/17 14:00 BP 152/77 12/07/17 14:00 Pulse Ox 94 L 12/07/17 14:00 Intake & Output 12/06/17 12/07/17 12/07/17 18:59 06:59 18:59 Intake Total 1738.5 1025.0 496.0 Output Total 1200 1465 5000 Balance 538.5 -440.0 -4504.0 Weight 100.1 kg 100.5 kg Intake: IV 1062.5 1025.0 496.0 0.9 for pressure 21 Amino Acid 5%-D15w+Lytes* 250 E* 1,000 ml @ 70 mls/hr IV .BY DURATION [facility] Rx#: [id number] Piperacillin-Tazobactam 3 87.5 50.0 50.0 .375 gm In Dextrose/Water 1 50ml.bag @ 12.5 mls/hr IVPB Q8HR [facility] Rx#: [id number] Potassium Chloride 10 meq 300 In Water For Injection 1 100ml.bag @ 100 mls/hr IVPB Q1H [facility] Rx#: [id number] Sodium Chloride 0.45% 1, 975 675 175 000 ml @ 5 mls/hr IV . Q24H [facility] Rx#:[id number] Intake, IV Titration 676 Amount Fat Emulsion 20% 250 ml 126 In Empty Bag 1 bag @ 21 mls/hr IV DAILY@1600 [facility] Rx#:[id number] Fluconazole in NaCl,Iso- 100 Osm 200 mg In Saline 1 100ml.bag @ 100 mls/hr IVPB DAILY@1800 [facility] Rx#: [id number] Mvi, Adult No.4 with Vit 150 K 10 ml Trace (Conc-1Ml/ Dose) 1 ml In Amino Acid 5%-D15w+Lytes*E* 1,000 ml @ 30 mls/hr IV .Q24H [facility] Rx#:[id number] Potassium Chloride 10 meq 100 In Water For Injection 1 100ml.bag @ 100 mls/hr IVPB Q1H [facility] Rx#: [id number] Potassium Chloride 20 meq 200 In Water For Injection 1 100ml.bag @ 50 mls/hr IVPB Q2H [facility] Rx#: [id number] Output: Gastric Drainage 100 100 Urine 1100 1465 4900 Other: Voiding Method Indwelling Catheter Indwelling Catheter Indwelling Catheter ABP, PAP, CO, CI - Last Documented Arterial Blood Pressure 131/70 - Exam PHYSICAL EXAMINATION: GENERAL: Drowsy, arousable and able to assess his orientation HEENT: Pupils are round and equally reacting to light. EOMI. No scleral icterus. No conjunctival pallor. Normocephalic, atraumatic. No pharyngeal erythema. No thyromegaly. CARDIOVASCULAR: S1 and S2 present. No murmurs, rubs, or gallops. PULMONARY: Chest is clear to auscultation, no wheezing or crackles. ABDOMEN: Sluggish bowel sounds NG tube in place colostomy bag in place MUSCULOSKELETAL: No joint swelling or deformity. EXTREMITIES: No cyanosis, clubbing, or pedal edema. NEUROLOGICAL: Gross neurological examination did not reveal any focal deficits. SKIN: No rashes. - Labs CBC & Chem 7: 12/07/17 04:26 12/07/17 04:26 Labs: Abnormal Lab Results - Last 24 Hours (Table) 12/07/17 12/07/17 12/07/17 Range/Units 04:26 04:26 12:03 WBC 13.0 H (3.8-10.6) k/uL RBC 3.77 L (3.80-5.40) m/uL Hgb 11.3 L (11.4-16.0) gm/dL Plt Count 93 L (150-450) k/uL Neutrophils # 10.7 H (1.3-7.7) k/uL Lymphocytes # 0.7 L (1.0-4.8) k/uL Chloride 108 H (98-107) mmol/L BUN 30 H (7-17) mg/dL Creatinine 1.10 H (0.52-1.04) mg/dL POC Glucose (mg/dL) 103 H (75-99) mg/dL Calcium 8.1 L (8.4-10.2) mg/dL Microbiology - Last 24 Hours (Table) 12/01/17 08:20 Blood Culture Gram Stain - Final Blood Blood Culture - Final Bacteroides fragilis Assessment and Plan Plan: -Septic shock shock resolved secondary to colitis. Patient is on Zosyn patient has enterococcus in the urine significant of which is unknown although Zosyn, covers that organism as well. 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
--- NOTE | 2017-12-07 15:10 | P.PN ---
Subjective Progress Note Date: 12/07/17 This is a 77-year-old female who underwent surgery for a ischemic bowel. Patient is slowly recovering. She seemed to be oriented to place and person. Denies any chest pain. Complains of pain in her toes. Patient has some ischemic changes in the both toes and also fingers. Patient was on high dose of Levophed for hypotension. Patient was evaluated by vascular surgery and apparently there doesn't seem to be any active ischemia. Conservative management is suggested. Estimated have device was checked. Patient did not have V. tach. The wide complex tachycardia appears to be pacemaker tracking atrial tachycardia. She is off amiodarone. We'll continue monitoring her. If she has any episodes of atrial tachycardia, we'll treat her with IV beta kamaljit. 12/07/2017: Patient did not have any recurrence of her cardiac arrhythmias. Patient still doesn't have bowel movements. She is also being treated for sepsis and UTI. From Cardec standpoint, no arrhythmias. Echo Cardigan showed normal LV function. She is also being treated for possible pneumonia. Prognosis appears to be relatively poor at this time Objective - Vital Signs Vital signs: Vital Signs Temp 98 F 12/07/17 12:00 Pulse 87 12/07/17 14:00 Resp 13 12/07/17 14:00 BP 152/77 12/07/17 14:00 Pulse Ox 94 L 12/07/17 14:00 Intake & Output 12/06/17 12/07/17 12/07/17 18:59 06:59 18:59 Intake Total 1738.5 1025.0 496.0 Output Total 1200 1465 5000 Balance 538.5 -440.0 -4504.0 Weight 100.1 kg 100.5 kg Intake: IV 1062.5 1025.0 496.0 0.9 for pressure 21 Amino Acid 5%-D15w+Lytes* 250 E* 1,000 ml @ 70 mls/hr IV .BY DURATION [facility] Rx#: [id number] Piperacillin-Tazobactam 3 87.5 50.0 50.0 .375 gm In Dextrose/Water 1 50ml.bag @ 12.5 mls/hr IVPB Q8HR [facility] Rx#: [id number] Potassium Chloride 10 meq 300 In Water For Injection 1 100ml.bag @ 100 mls/hr IVPB Q1H [facility] Rx#: [id number] Sodium Chloride 0.45% 1, 975 675 175 000 ml @ 5 mls/hr IV . Q24H [facility] Rx#:[id number] Intake, IV Titration 676 Amount Fat Emulsion 20% 250 ml 126 In Empty Bag 1 bag @ 21 mls/hr IV DAILY@1600 [facility] Rx#:[id number] Fluconazole in NaCl,Iso- 100 Osm 200 mg In Saline 1 100ml.bag @ 100 mls/hr IVPB DAILY@1800 [facility] Rx#: [id number] Mvi, Adult No.4 with Vit 150 K 10 ml Trace (Conc-1Ml/ Dose) 1 ml In Amino Acid 5%-D15w+Lytes*E* 1,000 ml @ 30 mls/hr IV .Q24H [facility] Rx#:[id number] Potassium Chloride 10 meq 100 In Water For Injection 1 100ml.bag @ 100 mls/hr IVPB Q1H [facility] Rx#: [id number] Potassium Chloride 20 meq 200 In Water For Injection 1 100ml.bag @ 50 mls/hr IVPB Q2H [facility] Rx#: [id number] Output: Gastric Drainage 100 100 Urine 1100 1465 4900 Other: Voiding Method Indwelling Catheter Indwelling Catheter Indwelling Catheter ABP, PAP, CO, CI - Last Documented Arterial Blood Pressure 131/70 - Exam GENERAL EXAM: Patient is alert and oriented and doesn't appear to be in any acute distress HEENT: Normocephalic. Normal reaction of pupils, equal size, normal range of extraocular motion. No erythema or exudates in the throat. NECK: No masses, no nuchal rigidity. CHEST: Diminished breath sounds LUNGS: Equal air entry with no crackles or wheeze. HEART: S1 and S2 normal with no audible mumurs or gallops. Regular rhythm, femorals equal on both sides.. ABDOMEN: Postsurgical SKIN: No rashes CENTRAL NERVOUS SYSTEM: No focal deficits. EXTREMITIES: she has ecchymotic changes and ischemia like changes involving the both feet. However, the pulses are intact. Patient is complaining of pain - Labs CBC & Chem 7: 12/07/17 04:26 12/07/17 04:26 Labs: Abnormal Lab Results - Last 24 Hours (Table) 12/07/17 12/07/17 12/07/17 Range/Units 04:26 04:26 12:03 WBC 13.0 H (3.8-10.6) k/uL RBC 3.77 L (3.80-5.40) m/uL Hgb 11.3 L (11.4-16.0) gm/dL Plt Count 93 L (150-450) k/uL Neutrophils # 10.7 H (1.3-7.7) k/uL Lymphocytes # 0.7 L (1.0-4.8) k/uL Chloride 108 H (98-107) mmol/L BUN 30 H (7-17) mg/dL Creatinine 1.10 H (0.52-1.04) mg/dL POC Glucose (mg/dL) 103 H (75-99) mg/dL Calcium 8.1 L (8.4-10.2) mg/dL Microbiology - Last 24 Hours (Table) 12/01/17 08:20 Blood Culture Gram Stain - Final Blood Blood Culture - Final Bacteroides fragilis Assessment and Plan (1) Wide-complex tachycardia Current Visit: Yes Status: Acute Code(s): I47.2 - VENTRICULAR TACHYCARDIA SNOMED Code(s): 879236964 (2) Ischemic colitis Current Visit: Yes Status: Acute Code(s): K55.9 - VASCULAR DISORDER OF INTESTINE, UNSPECIFIED SNOMED Code(s): 32877255 (3) History of permanent cardiac pacemaker placement Current Visit: Yes Status: Acute Code(s): Z95.0 - PRESENCE OF CARDIAC PACEMAKER SNOMED Code(s): 464225362 Plan: We will continue current management. We will interrogate the device to see if these episodes are V. tach versus pacemaker mediated ventricle are tachycardia. We'll may also get an echocardiogram to assess LV function. Patient doesn't have any recurrence of arrhythmias which appear to be atrial tachycardia tract by the pacemaker. If necessary will give IV beta kamaljit. Amiodarone has been discontinued. 12/07/2017: Patient is free of any arrhythmias. She is off amiodarone. We'll consider beta kamaljit if necessary. . Patient is being treated for sepsis and pneumonia and also ischemic bowels.
[2017-12-07] MEDS: FAT EMULSION 20% 250 ML in EMPTY BAG 1 BAG IV SCH (16:26)
[2017-12-07 17:53] LABS: Glucose,Whole Blood 151 mg/dL (75-99)
[2017-12-07] MEDS: FLUCONAZOLE IN NACL,ISO-OSM 200 MG in SALINE 1 100ML.BAG IVPB SCH (18:11)
[2017-12-07] MEDS: ACETAMINOPHEN IV (For NPO) 1,000 MG in EMPTY BAG 1 BAG IVPB SCH ×2 (19:03→23:49)
[2017-12-07] MEDS: ONDANSETRON 4 MG/2 ML VIAL IVP PRN (23:01)
[2017-12-07 23:41] LABS: Glucose,Whole Blood 144 mg/dL (75-99)
[2017-12-07] MEDS: metroNIDAZOLE-NS PMX 500 MG in SALINE 1 100ML.BAG IVPB SCH (23:49)
--- NOTE | 2017-12-07 23:53 | PN ---
PROGRESS NOTE DATE OF SERVICE: 12/07/2017 REASON FOR FOLLOWUP: Abdominal sepsis from ischemic colitis. INTERVAL HISTORY: The patient is currently afebrile. She seems to be breathing more comfortably. She did have a cough, bringing up some sputum hemoptysis. No chest pain. Abdominal pain is currently controlled. No nausea, vomiting or diarrhea. PHYSICAL EXAMINATION: Blood pressure is 158/78 with a pulse of 90, temperature of 98.1. She is 92% on 4 L nasal cannula. General description is an elderly female lying in bed in no distress. RESPIRATORY SYSTEM: Unlabored breathing with decreased breath sounds in the bases. No wheeze. HEART: S1, S2. Regular rate and rhythm. ABDOMEN: Soft. Mild tenderness. EXTREMITIES: No edema of the feet. LABS: Hemoglobin is 11.3 with white count of 13,000, BUN of 30, creatinine 1.10. Blood culture with Bacteroides fragilis. Repeat blood culture has been negative. DIAGNOSTIC IMPRESSION AND PLAN: Patient with abdominal sepsis from ischemic colitis in a patient who is status post laparotomy and resection of ischemic portion. The patient seems to be slowly clinically improving. She did have evidence of bacteroides bacteremia. That should be covered with Zosyn, though Flagyl will be added. We will continue to monitor her clinical course closely. White count has shown a downward trend. The patient apparently does have a congested cough and some infiltrate on the left lung. Sputum has been cultured and we will adjust antibiotic further if needed. Continue with supportive care. MMODL / IJN: [id number] /
[2017-12-08] MEDS: 1: MVI, ADULT NO.4 WITH VIT K 10 ML, TRACE (CONC-1ML/DOSE) 1 ML in AMINO ACID 5%-D15W+LY IV SCH ×9 (04:43→17:09)
[2017-12-08] MEDS: ONDANSETRON 4 MG/2 ML VIAL IVP PRN ×3 (04:54→19:18)
[2017-12-08] MEDS: HYDROmorphone 1 MG/ML 1 ML SYRINGE IVP PRN ×4 (04:54→23:07)
[2017-12-08 05:25] LABS: HCT 33.4 % (34.0-46.0); HGB 10.7 gm/dL (11.4-16.0); MCH 29.3 pg (25.0-35.0); MCV 91.6 fL (80.0-100.0); Mean Platelet Volume 8.4; Platelet Count 137 k/uL (150-450); RBC 3.65 m/uL (3.80-5.40); RDW 14.5 % (11.5-15.5)
[2017-12-08 05:37] LABS: Calcium 8.2 mg/dL (8.4-10.2); Magnesium 1.5 mg/dL (1.6-2.3); Phosphorus 3.3 mg/dL (2.5-4.5)
[2017-12-08 05:40] LABS: Potassium 2.9 mmol/L (3.5-5.1)
[2017-12-08] MEDS ORDERED: Magnesium Replacement Protocol 1 EACH MISC MISCELLANE PRN (05:42)
[2017-12-08] MEDS: ACETAMINOPHEN IV (For NPO) 1,000 MG in EMPTY BAG 1 BAG IVPB SCH ×2 (05:56→10:18)
[2017-12-08] MEDS: MAGNESIUM SULFATE-D5W PMX 1 GM in DEXTROSE/WATER 1 100ML.BAG IVPB SCH ×2 (05:57→06:45)
[2017-12-08] MEDS ORDERED: POTASSIUM BICARBONATE/CIT AC 20 MEQ TABLET.EFF NG-TUBE SCH (06:00)
[2017-12-08] MEDS: INSULIN ASPART 100 UNIT/ML 1 ML 10 ML VIAL SQ SCH ×3 (06:05→18:25)
[2017-12-08 06:18] LABS: Glucose,Whole Blood 140 mg/dL (75-99)
[2017-12-08] MEDS: POTASSIUM CHLORIDE 20 MEQ in WATER FOR INJECTION 1 100ML.BAG IVPB SCH ×5 (06:23→18:55)
[2017-12-08] MEDS: IPRATROPIUM-ALBUTEROL 3 ML NEB INHALATION SCH ×4 (08:12→19:49)
[2017-12-08] MEDS: metroNIDAZOLE-NS PMX 500 MG in SALINE 1 100ML.BAG IVPB SCH ×3 (08:36→23:49)
--- NOTE | 2017-12-08 08:43 | XR ---
EXAMINATION TYPE: XR chest 1V portable DATE OF EXAM: 12/08/2017 COMPARISON: December 07, 2017 HISTORY: SOB, Follow Up FINDINGS: Indwelling tubes and catheters are unchanged. No change in right perihilar and left lower lobe infiltrates and small left-sided pleural effusion. Stable appearance of the cardio-mediastinal structures at this time. Pleural effusion unchanged. IMPRESSION: 1. Stable portable chest. Clinical correlation and follow up until resolution is recommended.
[2017-12-08] MEDS: LEVOTHYROXINE IVP 100 MCG/5 ML VIAL IV SCH (09:02)
[2017-12-08] MEDS: PANTOPRAZOLE 40 MG/10 ML VIAL IV SCH (09:02)
[2017-12-08] MEDS: HEPARIN SODIUM,PORCINE 5,000 UNIT/ML 1 ML VIAL SQ SCH ×2 (09:02→21:48)
[2017-12-08] MEDS: PIPERACILLIN-TAZOBACTAM 3.375 GM in DEXTROSE/WATER 1 50ML.BAG IVPB SCH ×3 (09:15→23:57)
--- NOTE | 2017-12-08 12:43 | P.PN ---
Subjective Progress Note Date: 12/08/17 77-year-old female seen in the intensive care unit sitting up in bed. Patient is verbalizing being hungry and wants nasogastric tube out no movement from the ostomy. Surgical dressing site dry TPN infusing Objective - Vital Signs Vital signs: Vital Signs Temp 97.6 F 12/08/17 12:00 Pulse 93 12/08/17 12:00 Resp 16 12/08/17 12:00 BP 133/69 12/08/17 12:00 Pulse Ox 98 12/08/17 12:00 Intake & Output 12/07/17 12/08/17 12/08/17 18:59 06:59 18:59 Intake Total 820.5 2424.333 538 Output Total 6965 3650 1370 Balance -6144.5 -1225.667 -832 Weight 93.9 kg Intake: IV 820.5 1438.5 538 0.9 for pressure 33 36 18 ACETAMINOPHEN IV (For NPO 100 ) 1,000 mg In Empty Bag 1 bag @ 400 mls/hr IVPB Q6HR [facility] Rx#:[id number] Amino Acid 5%-D15w+Lytes* 530 840 350 E* 1,000 ml @ 70 mls/hr IV .BY DURATION [facility] Rx#: [id number] Fluconazole in NaCl,Iso- 100 Osm 200 mg In Saline 1 100ml.bag @ 100 mls/hr IVPB DAILY@1800 [facility] Rx#: [id number] Magnesium Sulfate-D5w Pmx 100 100 1 gm In Dextrose/Water 1 100ml.bag @ 100 mls/hr IVPB Q1H [facility] Rx#: [id number] Piperacillin-Tazobactam 3 62.5 62.5 .375 gm In Dextrose/Water 1 50ml.bag @ 12.5 mls/hr IVPB Q8HR [facility] Rx#: [id number] Potassium Chloride 20 meq 50 50 In Water For Injection 1 100ml.bag @ 50 mls/hr IVPB Q2H [facility] Rx#: [id number] Sodium Chloride 0.45% 1, 195 50 20 000 ml @ 5 mls/hr IV . Q24H [facility] Rx#:[id number] metroNIDAZOLE-NS PMX 500 100 mg In Saline 1 100ml.bag @ 100 mls/hr IVPB Q8HR [facility] Rx#:[id number] Intake, IV Titration 985.833 Amount Mvi, Adult No.4 with Vit 985.833 K 10 ml Trace (Conc-1Ml/ Dose) 1 ml In Amino Acid 5%-D15w+Lytes*E* 1,000 ml @ 70 mls/hr IV .BY DURATION [facility] Rx#: [id number] Output: Gastric Drainage 100 Urine 6835 3650 1370 Stool 30 Other: Voiding Method Indwelling Catheter Indwelling Catheter Indwelling Catheter ABP, PAP, CO, CI - Last Documented Arterial Blood Pressure 131/70 - Exam Exam 77-year-old female sitting up in bed awake and alert oriented to self and place Lungs diminished at the bases otherwise adequate air movement no wheezing rales or rhonchi Heart S1-S2 audible regular Abdomen ostomy stoma pink no stool no gas [address] suture line well approximated surgical dressing dry indwelling Miranda catheter in place nasogastric tube to suction few hypoactive bowel tones Extremities tips of the fingers dusky and the bottom of the feet decrease sensation - Labs CBC & Chem 7: 12/08/17 05:00 12/08/17 05:00 Labs: Abnormal Lab Results - Last 24 Hours (Table) 12/07/17 12/07/17 12/08/17 Range/Units 17:52 23:39 05:00 WBC (3.8-10.6) k/uL RBC (3.80-5.40) m/uL Hgb (11.4-16.0) gm/dL Hct (34.0-46.0) % Plt Count (150-450) k/uL Sodium 136 L (137-145) mmol/L Potassium 2.9 L* (3.5-5.1) mmol/L Carbon Dioxide 33 H (22-30) mmol/L BUN 25 H (7-17) mg/dL Glucose 122 H (74-99) mg/dL POC Glucose (mg/dL) 151 H 144 H (75-99) mg/dL Calcium 8.2 L (8.4-10.2) mg/dL Magnesium 1.5 L (1.6-2.3) mg/dL 12/08/17 12/08/17 Range/Units 05:00 06:01 WBC 18.0 H (3.8-10.6) k/uL RBC 3.65 L (3.80-5.40) m/uL Hgb 10.7 L (11.4-16.0) gm/dL Hct 33.4 L (34.0-46.0) % Plt Count 137 L (150-450) k/uL Sodium (137-145) mmol/L Potassium (3.5-5.1) mmol/L Carbon Dioxide (22-30) mmol/L BUN (7-17) mg/dL Glucose (74-99) mg/dL POC Glucose (mg/dL) 140 H (75-99) mg/dL Calcium (8.4-10.2) mg/dL Magnesium (1.6-2.3) mg/dL Microbiology - Last 24 Hours (Table) 12/06/17 13:52 Blood Culture - Preliminary Blood No Growth after 24 hours 12/01/17 08:20 Blood Culture Gram Stain - Final Blood Blood Culture - Final Bacteroides fragilis Assessment and Plan Assessment: Impression Acute Septic shock secondary UTI and subsequent ischemic colitis Hypertension Ischemic gangrenous bowel status post resection with ostomy Present on admission abdominal pain suspect due to ischemic colitis Plan Continue postop surgical care Continue nasogastric tube suction for now until bowel function resumes Continue TPN as ordered PT OT eval Will follow with you The above impression and plan of care have been discussed and directed by signing physician. Elisa Wise nurse practitioner acting as scribe for signing physician.
--- NOTE | 2017-12-08 13:14 | P.PN ---
Subjective 77-year-old admitted secondary to ischemic colitis underwent a laparotomy transverse colectomy found to have diverticulitis as well and had a ventral hernia repair patient is in ICU for septic shock shock improved patient has enterococcus in the urine and gram-negative to anaerobic bacteria in the blood repeat blood cultures were obtained. Patient is on Zosyn to cover the still patient is also on empiric Diflucan vancomycin was discontinued patient is off pressor support patient remains to have an G2 patient does have TPN in place. NG tube is still draining. By the time I evaluated the patient patient received a narcotics for pain because of which the patient is bit sleepy and bit confused although was asking appropriate questions like when her NG tube will be out. Has sluggish bowel sounds on exam. 12/07/2017 Patient the continues to have an G2 no significant improvement compared to yesterday. Patient is on TPN at this time. 12/08/2017 Patient is to have nasogastric tube with the little bit of drainage confusion improved area patient is comparing of nausea. Probably secondary to antibiotics patient is Zosyn and metronidazole. Patient received Lasix with significant improvement in her respiratory status. Patient is urinating well. IJ central line was removed and patient is receiving PICC line. Patient had minimally worsening white blood cell count. Low potassium which will be supplemented secondary to Lasix she received an pulmonary edema improved after Lasix. Objective - Vital Signs Vital signs: Vital Signs Temp 97.6 F 12/08/17 12:00 Pulse 84 12/08/17 13:00 Resp 20 12/08/17 13:00 BP 139/61 12/08/17 13:00 Pulse Ox 98 12/08/17 13:00 Intake & Output 12/07/17 12/08/17 12/08/17 18:59 06:59 18:59 Intake Total 820.5 2424.333 616 Output Total 6965 3650 1495 Balance -6144.5 -1225.667 -879 Weight 93.9 kg Intake: IV 820.5 1438.5 616 0.9 for pressure 33 36 21 ACETAMINOPHEN IV (For NPO 100 ) 1,000 mg In Empty Bag 1 bag @ 400 mls/hr IVPB Q6HR [facility] Rx#:[id number] Amino Acid 5%-D15w+Lytes* 530 840 420 E* 1,000 ml @ 70 mls/hr IV .BY DURATION [facility] Rx#: [id number] Fluconazole in NaCl,Iso- 100 Osm 200 mg In Saline 1 100ml.bag @ 100 mls/hr IVPB DAILY@1800 [facility] Rx#: [id number] Magnesium Sulfate-D5w Pmx 100 100 1 gm In Dextrose/Water 1 100ml.bag @ 100 mls/hr IVPB Q1H [facility] Rx#: [id number] Piperacillin-Tazobactam 3 62.5 62.5 .375 gm In Dextrose/Water 1 50ml.bag @ 12.5 mls/hr IVPB Q8HR [facility] Rx#: [id number] Potassium Chloride 20 meq 50 50 In Water For Injection 1 100ml.bag @ 50 mls/hr IVPB Q2H [facility] Rx#: [id number] Sodium Chloride 0.45% 1, 195 50 25 000 ml @ 5 mls/hr IV . Q24H [facility] Rx#:[id number] metroNIDAZOLE-NS PMX 500 100 mg In Saline 1 100ml.bag @ 100 mls/hr IVPB Q8HR [facility] Rx#:[id number] Intake, IV Titration 985.833 Amount Mvi, Adult No.4 with Vit 985.833 K 10 ml Trace (Conc-1Ml/ Dose) 1 ml In Amino Acid 5%-D15w+Lytes*E* 1,000 ml @ 70 mls/hr IV .BY DURATION [facility] Rx#: [id number] Output: Gastric Drainage 100 Urine 6835 3650 1495 Stool 30 Other: Voiding Method Indwelling Catheter Indwelling Catheter Indwelling Catheter ABP, PAP, CO, CI - Last Documented Arterial Blood Pressure 131/70 - Exam PHYSICAL EXAMINATION: GENERAL: Drowsy, arousable and able to assess his orientation HEENT: Pupils are round and equally reacting to light. EOMI. No scleral icterus. No conjunctival pallor. Normocephalic, atraumatic. No pharyngeal erythema. No thyromegaly. CARDIOVASCULAR: S1 and S2 present. No murmurs, rubs, or gallops. PULMONARY: Chest is clear to auscultation, no wheezing or crackles. ABDOMEN: Sluggish bowel sounds NG tube in place colostomy bag in place MUSCULOSKELETAL: No joint swelling or deformity. EXTREMITIES: No cyanosis, clubbing, or pedal edema. NEUROLOGICAL: Gross neurological examination did not reveal any focal deficits. SKIN: No rashes. - Labs CBC & Chem 7: 12/08/17 05:00 12/08/17 05:00 Labs: Abnormal Lab Results - Last 24 Hours (Table) 12/07/17 12/07/17 12/08/17 Range/Units 17:52 23:39 05:00 WBC (3.8-10.6) k/uL RBC (3.80-5.40) m/uL Hgb (11.4-16.0) gm/dL Hct (34.0-46.0) % Plt Count (150-450) k/uL Sodium 136 L (137-145) mmol/L Potassium 2.9 L* (3.5-5.1) mmol/L Carbon Dioxide 33 H (22-30) mmol/L BUN 25 H (7-17) mg/dL Glucose 122 H (74-99) mg/dL POC Glucose (mg/dL) 151 H 144 H (75-99) mg/dL Calcium 8.2 L (8.4-10.2) mg/dL Magnesium 1.5 L (1.6-2.3) mg/dL 12/08/17 12/08/17 Range/Units 05:00 06:01 WBC 18.0 H (3.8-10.6) k/uL RBC 3.65 L (3.80-5.40) m/uL Hgb 10.7 L (11.4-16.0) gm/dL Hct 33.4 L (34.0-46.0) % Plt Count 137 L (150-450) k/uL Sodium (137-145) mmol/L Potassium (3.5-5.1) mmol/L Carbon Dioxide (22-30) mmol/L BUN (7-17) mg/dL Glucose (74-99) mg/dL POC Glucose (mg/dL) 140 H (75-99) mg/dL Calcium (8.4-10.2) mg/dL Magnesium (1.6-2.3) mg/dL Microbiology - Last 24 Hours (Table) 12/06/17 13:52 Blood Culture - Preliminary Blood No Growth after 24 hours 12/01/17 08:20 Blood Culture Gram Stain - Final Blood Blood Culture - Final Bacteroides fragilis Assessment and Plan Plan: -Septic shock shock resolved secondary to colitis. Patient is on Zosyn and metronidazole patient has enterococcus in the urine significant of which is unknown although Zosyn, covers that organism as well. 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 -Toxic encephalopathy from opiates which resolved. -Fluid overload and pulmonary edema secondary to IV fluids she received which improved with Lasix.
--- NOTE | 2017-12-08 13:50 | P.PN ---
Subjective Progress Note Date: 12/08/17 On today's evaluation of 12/06/2017, the patient is awake and alert. NG tube is in place. The patient has been nothing by mouth for the past 5 days as the patient underwent a extensive laparotomy, transverse colectomy, diverticulitis to me, repair of a ventral hernia 2. The patient came in with septic condition related to an underlying enterococcal urine checked infection subsequently she developed abdominal pain and presentation was typical of ischemic colitis. The patient underwent expiratory laparotomy in that regard. She was severely hemodynamics unstable and the patient required high doses of pressors and IV fluids and ultimately she improved to the point where she is currently off pressors. She developed some ischemia in the right foot and she is complaining of pain in the right lower extremity. This ischemia related to severe hypotension and use of high dose of pressors. At this point in time the skin is mottled and there is some areas of ecchymosis nevertheless the patient has adequate pulses in lower extremities bilaterally and vascular surgery evaluated the limbs. No signs of any gangrenous changes at this point in time. The patient currently extubated. The patient is currently on oxygen by nasal cannula. No respiratory distress. No cough or sputum production. No abdominal pain. The colostomy site is still nonfunctional. The tissue itself is viable and bowel sounds are absent at this point in time. TPN is being considered by general surgery. Antibiotic coverage includes IV Diflucan and IV Zosyn. The most recent blood cultures showing anaerobic growth in the blood probably of a intra-abdominal source and the urine cultures showing enterococcus faecalis, penicillin sensitive. The patient remains on IV Zosyn. The sputum is showing Fatoumata which is a colonizer. The chest x-ray from today shows a upper lobe infiltrate and left retrocardiac infiltration. No other abnormalities otherwise noted. On today's evaluation of a 2017, the patient is still awake and alert. She remains nothing by mouth. No bowel sounds. No bowel activity. Colostomy site is viable. There is no output within the colostomy bag. Bowel sounds are absent. NG tube is in place. Output from the NG tube has been to 50 mL for yesterday. The patient's net fluid balance is +6 26 mL over the past 24 hours. TPN was started yesterday for nutritional support. Noted the patient was septic. She has a enterococcus faecalis in the urine and anaerobic gram- negative bacillus and the blood and the patient remains on same antibiotic coverage including a combination of Zosyn and Diflucan. Furthermore, the chest x-ray from today shows development of patchy breath and pulmonary infiltrates. There is a right upper lobe infiltration left lower lobe infiltration which raises the concern for a superimposed pneumonia was at its ventilator as. Rule out healthcare associated or aspiration type. The patient has a congested cough. Unable to bring up much sputum. At this point in time, she is on oxygen at 2 L/m nasal cannula and his saturations around 95%. She is not spiking a fever and her white cell count is down to 13. Also, she still complaining of pain in lower extremity and she has decent pulses in lower extremities bilaterally. No altered mentation. No other significant events overnight. On 12/08/2017 patient is being seen for a follow-up. The patient awake and alert. NG tube is in place. Output has been around 300 mL for the past 24 hours and the patient is having on and off nausea. Remains nothing by mouth on TPN. The colostomy still nonfunctional and there is no output within the colostomy bag. On examination the patient has a normal abdominal wound and has some sluggish bowel sounds. She is receiving TPN for nutritional support. I give her a dose of Lasix and she is in a negative fluid balance as the patient is producing adequate amount of urine output and the net fluid balance is -7.3 L. She is producing more than 100 mL an hour of urine output and her potassium was dropped and is being replaced for now. Note that the blood culture came back positive for Bacteroides fragilis and the patient has Enterococcus faecalis in the urine and the patient remains on IV Zosyn and Diflucan. The chest x-ray showed patchy breath and pulmonary infiltrates yet despite this the patient is not having any significant rest or distress. No significant cough or sputum production. No fever. There is some improvement today's chest exam hoping that this may turn to be in acute lung injury or even fluid overload. The findings however looked to be more patchy specially in the right upper lobe. We'll going to continue to monitor this abnormality. No significant electrolyte disturbance and the hypokalemia. The white cell count is at 18.0. The patient has a IJ triple lumen catheter that will be ultimately switched to a PICC line for IV access and TPN administration. Objective - Vital Signs Vital signs: Vital Signs Temp 97.6 F 12/08/17 12:00 Pulse 84 12/08/17 13:00 Resp 20 12/08/17 13:00 BP 139/61 12/08/17 13:00 Pulse Ox 98 12/08/17 13:00 Intake & Output 12/07/17 12/08/17 12/08/17 18:59 06:59 18:59 Intake Total 820.5 2424.333 616 Output Total 6965 3650 1495 Balance -6144.5 -1225.667 -879 Weight 93.9 kg Intake: IV 820.5 1438.5 616 0.9 for pressure 33 36 21 ACETAMINOPHEN IV (For NPO 100 ) 1,000 mg In Empty Bag 1 bag @ 400 mls/hr IVPB Q6HR [facility] Rx#:[id number] Amino Acid 5%-D15w+Lytes* 530 840 420 E* 1,000 ml @ 70 mls/hr IV .BY DURATION [facility] Rx#: [id number] Fluconazole in NaCl,Iso- 100 Osm 200 mg In Saline 1 100ml.bag @ 100 mls/hr IVPB DAILY@1800 [facility] Rx#: [id number] Magnesium Sulfate-D5w Pmx 100 100 1 gm In Dextrose/Water 1 100ml.bag @ 100 mls/hr IVPB Q1H [facility] Rx#: [id number] Piperacillin-Tazobactam 3 62.5 62.5 .375 gm In Dextrose/Water 1 50ml.bag @ 12.5 mls/hr IVPB Q8HR [facility] Rx#: [id number] Potassium Chloride 20 meq 50 50 In Water For Injection 1 100ml.bag @ 50 mls/hr IVPB Q2H [facility] Rx#: [id number] Sodium Chloride 0.45% 1, 195 50 25 000 ml @ 5 mls/hr IV . Q24H [facility] Rx#:[id number] metroNIDAZOLE-NS PMX 500 100 mg In Saline 1 100ml.bag @ 100 mls/hr IVPB Q8HR [facility] Rx#:[id number] Intake, IV Titration 985.833 Amount Mvi, Adult No.4 with Vit 985.833 K 10 ml Trace (Conc-1Ml/ Dose) 1 ml In Amino Acid 5%-D15w+Lytes*E* 1,000 ml @ 70 mls/hr IV .BY DURATION [facility] Rx#: [id number] Output: Gastric Drainage 100 Urine 6835 3650 1495 Stool 30 Other: Voiding Method Indwelling Catheter Indwelling Catheter Indwelling Catheter ABP, PAP, CO, CI - Last Documented Arterial Blood Pressure 131/70 - Exam No acute distress, awake and alert, nasal O2 in place. The patient has an NG tube in place and output has been only 100 mL over the past 8 hours. HEENT examination is grossly unremarkable. Mucous membranes are moist. Neck supple. Full range of motion. No adenopathy thyromegaly or neck vein distention. Cardiovascular examination reveals regular rhythm rate. S1-S2 normal. No S3 or S4. No discernible murmur noted. Lungs reveal bilaterally equal breath sounds. Some bilateral coarse rhonchi are noted. No wheezes or crackles. Breath sounds equal bilaterally. Breath sounds are improved. Abdomen soft without bowel sounds. No masses. No tenderness. Fresh colostomy is noted. The patient has a colostomy site is viable. No output is in the colostomy bag. Bowel sounds are absent at this point. No abdominal distention. The patient has sumaya with retention sutures holding the abdominal wound together. Extremities are intact. Examination of the extremities revealed easily palpable radial, femoral and pedal pulses. There was no cyanosis, clubbing or edema. SkinExamination of the skin revealed no evidence of significant rashes, suspicious appearing nevi or other concerning lesions. The wound description as above Neurologic examination is difficult to assess but she moves all 4 extremities well. - Labs CBC & Chem 7: 12/08/17 05:00 12/08/17 05:00 Labs: Abnormal Lab Results - Last 24 Hours (Table) 12/07/17 12/07/17 12/08/17 Range/Units 17:52 23:39 05:00 WBC (3.8-10.6) k/uL RBC (3.80-5.40) m/uL Hgb (11.4-16.0) gm/dL Hct (34.0-46.0) % Plt Count (150-450) k/uL Sodium 136 L (137-145) mmol/L Potassium 2.9 L* (3.5-5.1) mmol/L Carbon Dioxide 33 H (22-30) mmol/L BUN 25 H (7-17) mg/dL Glucose 122 H (74-99) mg/dL POC Glucose (mg/dL) 151 H 144 H (75-99) mg/dL Calcium 8.2 L (8.4-10.2) mg/dL Magnesium 1.5 L (1.6-2.3) mg/dL 12/08/17 12/08/17 Range/Units 05:00 06:01 WBC 18.0 H (3.8-10.6) k/uL RBC 3.65 L (3.80-5.40) m/uL Hgb 10.7 L (11.4-16.0) gm/dL Hct 33.4 L (34.0-46.0) % Plt Count 137 L (150-450) k/uL Sodium (137-145) mmol/L Potassium (3.5-5.1) mmol/L Carbon Dioxide (22-30) mmol/L BUN (7-17) mg/dL Glucose (74-99) mg/dL POC Glucose (mg/dL) 140 H (75-99) mg/dL Calcium (8.4-10.2) mg/dL Magnesium (1.6-2.3) mg/dL Microbiology - Last 24 Hours (Table) 12/06/17 13:52 Blood Culture - Preliminary Blood No Growth after 24 hours 12/01/17 08:20 Blood Culture Gram Stain - Final Blood Blood Culture - Final Bacteroides fragilis Assessment and Plan Plan: Assessment 1 acute septic shock secondary to UTI and subsequent ischemic colitis and the patient has enterococcal faecalis in in her urine and anaerobes and the blood culture. The patient is covered with a combination of Diflucan and Zosyn. The patient is postop day #6 regarding extremity laparotomy, colectomy, lysis of adhesions, diverticular colostomy and ventral hernia repair. For now the patient is still having no bowel activity. The colostomy site is viable yet nonfunctional and there is no output within the collection bag. There is some sluggish bowel sounds. The patient has NG tube in place. Output is minimal at this point in time. She was septic related to her ischemic colitis and the patient has Bacteroides fragilis and the blood covered with IV Zosyn. She is on TPN for nutritional support. 2 profound hypotension, recovered and the patient is currently hemodynamically stable 3 enterococcus faecalis in the urine, UTI 4 septicemia secondary to anaerobes, likely of a gastrointestinal source/ ischemic colitis, with Bacteroides fragilis. 5 ischemic right lower extremity/foot, improving and the patient has regained pulses in the right lower extremity and there is no evidence of any gangrenous transformation 6 lactic acidosis, recovered 7 hypoproteinemia and hypoalbuminemia secondary to above, currently on TPN 8 hypertension 9 hypothyroidism 10 acute kidney injury improving 11 leukocytosis, improving 12 patchy bilateral pulmonary infiltrates. LV function is within normal limits. This is likely a pneumonia and pneumonia is favored over CHF special that the patient has patchy by the pulmonary filtrates mainly in the right upper lobe and left lower lobe. Plan Continue TPN. Replace the potassium. IV fluids to KVO. Reducing adequate amount of urine output and the patient is mobilizing the excessive fluid that she has. Repeat chest x-ray in the morning. Monitor fever pattern. Monitor white count. Keep NG tube in place. Insert a PICC line for a consultation with interventional radiology. Remove the triple-lumen catheter. Sent for cultures. We'll continue to follow. We'll continue keeping her Stewart follow 24 hours. Consult physical therapy. Allow the patient to sit up on a chair.
--- NOTE | 2017-12-08 14:23 | P.PN ---
Subjective This is a 77-year-old female who underwent surgery for a ischemic bowel. Patient is slowly recovering. She seemed to be oriented to place and person. Denies any chest pain. Complains of pain in her toes. Patient has some ischemic changes in the both toes and also fingers. Patient was on high dose of Levophed for hypotension. Patient was evaluated by vascular surgery and apparently there doesn't seem to be any active ischemia. Conservative management is suggested. Estimated have device was checked. Patient did not have V. tach. The wide complex tachycardia appears to be pacemaker tracking atrial tachycardia. She is off amiodarone. We'll continue monitoring her. If she has any episodes of atrial tachycardia, we'll treat her with IV beta kamaljit. 12/07/2017: Patient did not have any recurrence of her cardiac arrhythmias. Patient still doesn't have bowel movements. She is also being treated for sepsis and UTI. From Cardec standpoint, no arrhythmias. Echo Cardigan showed normal LV function. She is also being treated for possible pneumonia. Prognosis appears to be relatively poor at this time. 12/08/2017: Patient's clinical condition remained stable. Patient does not have any bowel movements, With questionable bowel sounds present. Patient is still complaining of pain in the right foot. Complaints of weakness in both hands. No Cardec arrhythmias. We'll continue current medical therapy and will follow her as needed Objective - Vital Signs Vital signs: Vital Signs Temp 97.6 F 12/08/17 12:00 Pulse 84 12/08/17 13:00 Resp 20 12/08/17 13:00 BP 139/61 12/08/17 13:00 Pulse Ox 98 12/08/17 13:00 Intake & Output 12/07/17 12/08/17 12/08/17 18:59 06:59 18:59 Intake Total 820.5 2424.333 616 Output Total 6965 3740 1495 Balance -6144.5 -1225.667 -879 Weight 93.9 kg Intake: IV 820.5 1438.5 616 0.9 for pressure 33 36 21 ACETAMINOPHEN IV (For NPO 100 ) 1,000 mg In Empty Bag 1 bag @ 400 mls/hr IVPB Q6HR [facility] Rx#:[id number] Amino Acid 5%-D15w+Lytes* 530 840 420 E* 1,000 ml @ 70 mls/hr IV .BY DURATION [facility] Rx#: [id number] Fluconazole in NaCl,Iso- 100 Osm 200 mg In Saline 1 100ml.bag @ 100 mls/hr IVPB DAILY@1800 [facility] Rx#: [id number] Magnesium Sulfate-D5w Pmx 100 100 1 gm In Dextrose/Water 1 100ml.bag @ 100 mls/hr IVPB Q1H [facility] Rx#: [id number] Piperacillin-Tazobactam 3 62.5 62.5 .375 gm In Dextrose/Water 1 50ml.bag @ 12.5 mls/hr IVPB Q8HR [facility] Rx#: [id number] Potassium Chloride 20 meq 50 50 In Water For Injection 1 100ml.bag @ 50 mls/hr IVPB Q2H [facility] Rx#: [id number] Sodium Chloride 0.45% 1, 195 50 25 000 ml @ 5 mls/hr IV . Q24H [facility] Rx#:[id number] metroNIDAZOLE-NS PMX 500 100 mg In Saline 1 100ml.bag @ 100 mls/hr IVPB Q8HR [facility] Rx#:[id number] Intake, IV Titration 985.833 Amount Mvi, Adult No.4 with Vit 985.833 K 10 ml Trace (Conc-1Ml/ Dose) 1 ml In Amino Acid 5%-D15w+Lytes*E* 1,000 ml @ 70 mls/hr IV .BY DURATION [facility] Rx#: [id number] Output: Gastric Drainage 100 Urine 6835 3650 1495 Stool 30 Other: Voiding Method Indwelling Catheter Indwelling Catheter Indwelling Catheter ABP, PAP, CO, CI - Last Documented Arterial Blood Pressure 131/70 - Exam GENERAL EXAM: Patient is alert and oriented and doesn't appear to be in any acute distress HEENT: Normocephalic. Normal reaction of pupils, equal size, normal range of extraocular motion. No erythema or exudates in the throat. NECK: No masses, no nuchal rigidity. CHEST: Diminished breath sounds LUNGS: Equal air entry with no crackles or wheeze. HEART: S1 and S2 normal with no audible mumurs or gallops. Regular rhythm, femorals equal on both sides.. ABDOMEN: Postsurgical SKIN: No rashes CENTRAL NERVOUS SYSTEM: No focal deficits. EXTREMITIES: she has ecchymotic changes and ischemia like changes involving the both feet. However, the pulses are intact. Patient is complaining of pain - Labs CBC & Chem 7: 12/08/17 05:00 12/08/17 05:00 Labs: Abnormal Lab Results - Last 24 Hours (Table) 12/07/17 12/07/17 12/08/17 Range/Units 17:52 23:39 05:00 WBC (3.8-10.6) k/uL RBC (3.80-5.40) m/uL Hgb (11.4-16.0) gm/dL Hct (34.0-46.0) % Plt Count (150-450) k/uL Sodium 136 L (137-145) mmol/L Potassium 2.9 L* (3.5-5.1) mmol/L Carbon Dioxide 33 H (22-30) mmol/L BUN 25 H (7-17) mg/dL Glucose 122 H (74-99) mg/dL POC Glucose (mg/dL) 151 H 144 H (75-99) mg/dL Calcium 8.2 L (8.4-10.2) mg/dL Magnesium 1.5 L (1.6-2.3) mg/dL 12/08/17 12/08/17 Range/Units 05:00 06:01 WBC 18.0 H (3.8-10.6) k/uL RBC 3.65 L (3.80-5.40) m/uL Hgb 10.7 L (11.4-16.0) gm/dL Hct 33.4 L (34.0-46.0) % Plt Count 137 L (150-450) k/uL Sodium (137-145) mmol/L Potassium (3.5-5.1) mmol/L Carbon Dioxide (22-30) mmol/L BUN (7-17) mg/dL Glucose (74-99) mg/dL POC Glucose (mg/dL) 140 H (75-99) mg/dL Calcium (8.4-10.2) mg/dL Magnesium (1.6-2.3) mg/dL Microbiology - Last 24 Hours (Table) 12/06/17 13:52 Blood Culture - Preliminary Blood No Growth after 24 hours 12/01/17 08:20 Blood Culture Gram Stain - Final Blood Blood Culture - Final Bacteroides fragilis Assessment and Plan (1) Wide-complex tachycardia Current Visit: Yes Status: Acute Code(s): I47.2 - VENTRICULAR TACHYCARDIA SNOMED Code(s): 615929198 (2) Ischemic colitis Current Visit: Yes Status: Acute Code(s): K55.9 - VASCULAR DISORDER OF INTESTINE, UNSPECIFIED SNOMED Code(s): 74331010 (3) History of permanent cardiac pacemaker placement Current Visit: Yes Status: Acute Code(s): Z95.0 - PRESENCE OF CARDIAC PACEMAKER SNOMED Code(s): 818635242 Plan: We will continue current management. We will interrogate the device to see if these episodes are V. tach versus pacemaker mediated ventricle are tachycardia. We'll may also get an echocardiogram to assess LV function. Patient doesn't have any recurrence of arrhythmias which appear to be atrial tachycardia tract by the pacemaker. If necessary will give IV beta kamaljit. Amiodarone has been discontinued. 12/07/2017: Patient is free of any arrhythmias. She is off amiodarone. We'll consider beta kamaljit if necessary. . Patient is being treated for sepsis and pneumonia and also ischemic bowels. 12/08/2017: Patient is free of any arrhythmias. We will follow her as needed
[2017-12-08 15:45] LABS: INR 1.2 (<1.2); Prothrombin Time 11.5 sec (9.0-12.0)
[2017-12-08] MEDS ORDERED: LIDOCAINE 2% SYG (PF) 100 MG/5 ML MISCELLANE ONE (15:45)
--- NOTE | 2017-12-08 16:08 | XR ---
EXAMINATION TYPE: XR chest 1V confirm line [facility] DATE OF EXAM: 12/08/2017 HISTORY: Shortness of breath. COMPARISON: None. TECHNIQUE: Single view of the chest is submitted. FINDINGS: Right-sided PICC line with distal tip overlying the distal SVC. No evidence for pneumothorax. Demonstrated are scattered senescent parenchymal change. Left basilar opacity may reflect a combination of infiltrate, atelectasis and/or effusion. Pulmonary venous congestion and right perihilar infiltrate persists. The heart is stable. Hilar and mediastinal structures are within normal limits. Degenerative changes are seen of the dorsal spine. IMPRESSION: 1. Stable chest. PICC line as noted.
[2017-12-08 16:44] LABS: Glucose,Whole Blood 119 mg/dL (75-99)
[2017-12-08] MEDS: FAT EMULSION 20% 250 ML in EMPTY BAG 1 BAG IV SCH (17:09)
[2017-12-08 18:15] LABS: Glucose,Whole Blood 105 mg/dL (75-99)
[2017-12-08] MEDS: FLUCONAZOLE IN NACL,ISO-OSM 200 MG in SALINE 1 100ML.BAG IVPB SCH (19:00)
[2017-12-08] MEDS: SODIUM CHLORIDE 0.45% 1,000 ML IV SCH (20:06)
[2017-12-08 23:08] LABS: Glucose,Whole Blood 108 mg/dL (75-99)
[2017-12-08] MEDS ORDERED: POTASSIUM CHLORIDE 20 MEQ in WATER FOR INJECTION 1 100ML.BAG IVPB ONE (23:30)
--- NOTE | 2017-12-08 23:51 | PN ---
PROGRESS NOTE DATE OF SERVICE: 12/08/2017. REASON FOR FOLLOWUP: 1. Abdominal sepsis. 2. Patient with elevated white count, questionably central line-related. INTERVAL HISTORY: The patient was seen on rounds this morning. The patient has been afebrile. She is more awake and alert, wants the tube to be out of her nose and the neck. The patient denies having any chest pain or shortness of breath. Occasional cough. No abdominal pain and no diarrhea. EXAMINATION: Blood pressure 165/76 with a pulse of 79, temperature 97.8. She is 99% on room air. General description is an elderly female lying in bed in no distress. RESPIRATORY SYSTEM: Unlabored breathing with decreased breath sounds at the bases. HEART: S1, S2. Regular rate and rhythm. ABDOMEN: Soft, no tenderness. LABS: Hemoglobin is 10.7, white count of 18,000. BUN of 25, creatinine 1.0. Blood culture 12/06 has been negative. DIAGNOSTIC IMPRESSION AND PLAN: Patient with abdominal sepsis, some ischemic colitis, status post resection of the portion of ischemic bowel. The patient is slowly clinically improving. She did have evidence of a Bacteroides fragilis bacteremia. The patient is currently covered with Zosyn and Flagyl, will be continued. She did have slight jump in the white count, which could be related to the central line that the patient has for couple of days now. R.N. has been advised to discontinue the central line and get a PICC line. If the white count remains to be elevated or the patient spikes any fever, will do culture and adjust antibiotic further. Overall prognosis remains to be guarded. Continue with supportive care. MMODL / IJN: [id number] /
[2017-12-09 00:42] LABS: Glucose,Whole Blood 125 mg/dL (75-99)
[2017-12-09] MEDS: INSULIN ASPART 100 UNIT/ML 1 ML 10 ML VIAL SQ SCH ×5 (00:49→23:48)
[2017-12-09] MEDS: ONDANSETRON 4 MG/2 ML VIAL IVP PRN ×3 (03:26→23:52)
[2017-12-09] MEDS: HYDROmorphone 1 MG/ML 1 ML SYRINGE IVP PRN ×5 (04:29→23:51)
[2017-12-09 04:53] LABS: HCT 33.4 % (34.0-46.0); HGB 10.8 gm/dL (11.4-16.0); MCH 29.9 pg (25.0-35.0); MCHC 32.4 g/dL (31.0-37.0); MCV 92.3 fL (80.0-100.0); Mean Platelet Volume 8.5; Platelet Count 202 k/uL (150-450); RBC 3.62 m/uL (3.80-5.40); RDW 14.4 % (11.5-15.5); WBC 18.3 k/uL (3.8-10.6)
[2017-12-09 05:12] LABS: Ionized Calcium 4.8 mg/dL (4.5-5.3)
[2017-12-09 05:30] LABS: Calcium 7.8 mg/dL (8.4-10.2); Magnesium 1.6 mg/dL (1.6-2.3); Phosphorus 3.8 mg/dL (2.5-4.5); Potassium 3.6 mmol/L (3.5-5.1)
[2017-12-09] MEDS ORDERED: POTASSIUM CHLORIDE 20 MEQ in WATER FOR INJECTION 1 100ML.BAG IVPB ONE (06:00)
[2017-12-09 06:21] LABS: Glucose,Whole Blood 116 mg/dL (75-99)
[2017-12-09] MEDS: MAGNESIUM SULFATE-D5W PMX 1 GM in DEXTROSE/WATER 1 100ML.BAG IVPB SCH ×2 (06:23→08:41)
[2017-12-09] MEDS: IPRATROPIUM-ALBUTEROL 3 ML NEB INHALATION SCH ×4 (07:00→18:50)
--- NOTE | 2017-12-09 08:12 | XR ---
EXAMINATION TYPE: XR chest 1V portable DATE OF EXAM: 12/09/2017 COMPARISON: Prior chest x-ray 12/08/2017 HISTORY: Cough and shortness of breath TECHNIQUE: Single frontal view of the chest is obtained. FINDINGS: Endotracheal tube is overlying appropriate position, pacemaker is stable. Heart size is un changed. Right-sided PICC line shows the distal tip overlying the superior vena cava. No evident pneu mothorax. Retrocardiac density persists. Suspect some improvement in the interstitium, perihilar airs pace disease. There are overlying cardiac leads. Right jugular central venous catheter has been remov ed in the interval. IMPRESSION: Suspect some improvement in aeration, volume status. Persistent left lower lobe atelecta sis versus pneumonia or edema and associated effusion. Additional follow-up recommended.
[2017-12-09] MEDS: 1: MVI, ADULT NO.4 WITH VIT K 10 ML, TRACE (CONC-1ML/DOSE) 1 ML in AMINO ACID 5%-D15W+LY IV SCH ×9 (08:21→22:23)
--- NOTE | 2017-12-09 08:37 | IR ---
PICC LINE PLACEMENT: HISTORY: Infection requiring long-term antibiotic therapy PROCEDURE: Ultrasound guidance of PICC line placement. ANTITANK ASSAULT GUNNER: Dr. Pacheco. COMPLICATIONS: None ANESTHESIA: 1. 1% Lidocaine locally. FINDINGS/TECHNIQUE: The procedure was explained to the patient. The risks, complications, benefits and alternatives were discussed and any questions were answered. Informed consent was obtained. The patient was placed supine on the fluoroscopic table and prepped and draped in the usual sterile fas ion. Utilizing a 21 gauge needle and sonographic guidance, access in the right basilic vein was ach ieved and there is placement of a 0.018 guidewire. The vein is patent. A 5-F. sheath was placed ove r the guidewire. The guidewire and dilator were removed and a 5-F. Double lumen PICC line was placed through the sheath with the chest x-ray confirming the tip at the level of the SVC. The sheath was removed, the catheter was flushed and sutured into position. The patient was stable throughout the p rocedure and remained stable upon discharge from the Department of Radiology. The vein puncture was patent under ultrasound. A rees scale image was obtained to document patency of the vein punctured. All elements of the maximal barrier technique were utilized. IMPRESSION: 1. Successful PICC line placement under ultrasound performed bedside within the ICU.
[2017-12-09] MEDS: metroNIDAZOLE-NS PMX 500 MG in SALINE 1 100ML.BAG IVPB SCH ×3 (08:42→23:46)
[2017-12-09] MEDS: PIPERACILLIN-TAZOBACTAM 3.375 GM in DEXTROSE/WATER 1 50ML.BAG IVPB SCH ×3 (08:43→23:46)
[2017-12-09] MEDS: HEPARIN SODIUM,PORCINE 5,000 UNIT/ML 1 ML VIAL SQ SCH ×2 (08:43→20:01)
[2017-12-09] MEDS: LEVOTHYROXINE IVP 100 MCG/5 ML VIAL IV SCH (08:43)
[2017-12-09] MEDS: PANTOPRAZOLE 40 MG/10 ML VIAL IV SCH (08:44)
[2017-12-09] MEDS: METOCLOPRAMIDE 5 MG/ML 2 ML VIAL IVP SCH ×3 (10:57→23:46)
[2017-12-09 11:52] LABS: Glucose,Whole Blood 119 mg/dL (75-99)
--- NOTE | 2017-12-09 13:00 | P.PN ---
Subjective 77-year-old admitted secondary to ischemic colitis underwent a laparotomy transverse colectomy found to have diverticulitis as well and had a ventral hernia repair patient is in ICU for septic shock shock improved patient has enterococcus in the urine and gram-negative to anaerobic bacteria in the blood repeat blood cultures were obtained. Patient is on Zosyn to cover the still patient is also on empiric Diflucan vancomycin was discontinued patient is off pressor support patient remains to have an G2 patient does have TPN in place. NG tube is still draining. By the time I evaluated the patient patient received a narcotics for pain because of which the patient is bit sleepy and bit confused although was asking appropriate questions like when her NG tube will be out. Has sluggish bowel sounds on exam. 12/07/2017 Patient the continues to have an G2 no significant improvement compared to yesterday. Patient is on TPN at this time. 12/08/2017 Patient is to have nasogastric tube with the little bit of drainage confusion improved area patient is comparing of nausea. Probably secondary to antibiotics patient is Zosyn and metronidazole. Patient received Lasix with significant improvement in her respiratory status. Patient is urinating well. IJ central line was removed and patient is receiving PICC line. Patient had minimally worsening white blood cell count. Low potassium which will be supplemented secondary to Lasix she received an pulmonary edema improved after Lasix. 12/09/2017 Significant changes clinically overall. Patient still has an NG tube with minimal drainage. Respiratory status did improve sodium has gone down a little bit. Patient's vasospasm and bluish discoloration of the toe secondary to not epinephrine is getting better. Patient is off Nor-epinephrine. Objective - Vital Signs Vital signs: Vital Signs Temp 98.0 F 12/09/17 12:00 Pulse 72 12/09/17 12:00 Resp 14 12/09/17 12:00 BP 120/62 12/09/17 12:00 Pulse Ox 99 12/09/17 12:00 Intake & Output 12/08/17 12/09/17 12/09/17 18:59 06:59 18:59 Intake Total 2011.333 1655.0 1411 Output Total 2243 1715 575 Balance -230.667 -60.0 836 Weight 93.9 kg 92.3 kg Intake: IV 1142 1655.0 400 0.9 for pressure 27 Amino Acid 5%-D15w+Lytes* 770 840 280 E* 1,000 ml @ 70 mls/hr IV .BY DURATION [facility] Rx#: [id number] Fluconazole in NaCl,Iso- 100 Osm 200 mg In Saline 1 100ml.bag @ 100 mls/hr IVPB DAILY@1800 [facility] Rx#: [id number] Magnesium Sulfate-D5w Pmx 100 1 gm In Dextrose/Water 1 100ml.bag @ 100 mls/hr IVPB Q1H [facility] Rx#: [id number] Magnesium Sulfate-D5w Pmx 100 100 1 gm In Dextrose/Water 1 100ml.bag @ 100 mls/hr IVPB Q1H [facility] Rx#: [id number] Piperacillin-Tazobactam 3 50.0 .375 gm In Dextrose/Water 1 50ml.bag @ 12.5 mls/hr IVPB Q8HR [facility] Rx#: [id number] Potassium Chloride 20 meq 100 300 In Water For Injection 1 100ml.bag @ 50 mls/hr IVPB Q2H [facility] Rx#: [id number] Potassium Chloride 20 meq 100 In Water For Injection 1 100ml.bag @ 50 mls/hr IVPB Q2H [facility] Rx#: [id number] Sodium Chloride 0.45% 1, 45 65 20 000 ml @ 5 mls/hr IV . Q24H [facility] Rx#:[id number] metroNIDAZOLE-NS PMX 500 100 100 mg In Saline 1 100ml.bag @ 100 mls/hr IVPB Q8HR [facility] Rx#:[id number] Intake, IV Titration 805.451 1808 Amount Mvi, Adult No.4 with Vit 198.660 9302 K 10 ml Trace (Conc-1Ml/ Dose) 1 ml In Amino Acid 5%-D15w+Lytes*E* 1,000 ml @ 70 mls/hr IV .BY DURATION [facility] Rx#: [id number] Output: Urine 2243 1715 575 Other: Voiding Method Indwelling Catheter Indwelling Catheter Indwelling Catheter ABP, PAP, CO, CI - Last Documented Arterial Blood Pressure 131/70 - Exam PHYSICAL EXAMINATION: GENERAL: Drowsy, arousable and able to assess his orientation HEENT: Pupils are round and equally reacting to light. EOMI. No scleral icterus. No conjunctival pallor. Normocephalic, atraumatic. No pharyngeal erythema. No thyromegaly. CARDIOVASCULAR: S1 and S2 present. No murmurs, rubs, or gallops. PULMONARY: Chest is clear to auscultation, no wheezing or crackles. ABDOMEN: Sluggish bowel sounds NG tube in place colostomy bag in place MUSCULOSKELETAL: No joint swelling or deformity. EXTREMITIES: No cyanosis, clubbing, or pedal edema. NEUROLOGICAL: Gross neurological examination did not reveal any focal deficits. SKIN: No rashes. - Labs CBC & Chem 7: 12/09/17 04:00 12/09/17 10:32 Labs: Abnormal Lab Results - Last 24 Hours (Table) 12/08/17 12/08/17 12/08/17 Range/Units 11:46 14:40 14:40 WBC (3.8-10.6) k/uL RBC (3.80-5.40) m/uL Hgb (11.4-16.0) gm/dL Hct (34.0-46.0) % INR 1.2 H (<1.2) Sodium (137-145) mmol/L Potassium 3.2 L (3.5-5.1) mmol/L Carbon Dioxide (22-30) mmol/L BUN (7-17) mg/dL Glucose (74-99) mg/dL POC Glucose (mg/dL) 119 H (75-99) mg/dL Calcium (8.4-10.2) mg/dL 12/08/17 12/08/17 12/09/17 Range/Units 18:13 23:06 00:00 WBC (3.8-10.6) k/uL RBC (3.80-5.40) m/uL Hgb (11.4-16.0) gm/dL Hct (34.0-46.0) % INR (<1.2) Sodium (137-145) mmol/L Potassium (3.5-5.1) mmol/L Carbon Dioxide (22-30) mmol/L BUN (7-17) mg/dL Glucose (74-99) mg/dL POC Glucose (mg/dL) 105 H 108 H 125 H (75-99) mg/dL Calcium (8.4-10.2) mg/dL 12/09/17 12/09/17 12/09/17 Range/Units 04:00 04:00 06:19 WBC 18.3 H (3.8-10.6) k/uL RBC 3.62 L (3.80-5.40) m/uL Hgb 10.8 L (11.4-16.0) gm/dL Hct 33.4 L (34.0-46.0) % INR (<1.2) Sodium 133 L (137-145) mmol/L Potassium (3.5-5.1) mmol/L Carbon Dioxide 32 H (22-30) mmol/L BUN 23 H (7-17) mg/dL Glucose 116 H (74-99) mg/dL POC Glucose (mg/dL) 116 H (75-99) mg/dL Calcium 7.8 L (8.4-10.2) mg/dL 12/09/17 Range/Units 11:44 WBC (3.8-10.6) k/uL RBC (3.80-5.40) m/uL Hgb (11.4-16.0) gm/dL Hct (34.0-46.0) % INR (<1.2) Sodium (137-145) mmol/L Potassium (3.5-5.1) mmol/L Carbon Dioxide (22-30) mmol/L BUN (7-17) mg/dL Glucose (74-99) mg/dL POC Glucose (mg/dL) 119 H (75-99) mg/dL Calcium (8.4-10.2) mg/dL Microbiology - Last 24 Hours (Table) 12/08/17 19:40 Catheter Tip Culture - Preliminary Catheter Tip 12/06/17 13:52 Blood Culture - Preliminary Blood No Growth after 48 hours Assessment and Plan Plan: -Septic shock shock resolved secondary to colitis. Patient is on Zosyn and metronidazole patient has enterococcus in the urine significant of which is unknown although Zosyn, covers that organism as well. 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 -Toxic encephalopathy from opiates which resolved. -Fluid overload and pulmonary edema secondary to IV fluids she received which improved with Lasix. -Nor epinephrine induced vasoconstriction and bluish discoloration of the toes
[2017-12-09] MEDS ORDERED: VANCOMYCIN IV PER PHARMACY 1 EACH MISC MISCELLANE PRN (13:29)
[2017-12-09] MEDS: POTASSIUM CHLORIDE 10 MEQ in WATER FOR INJECTION 1 100ML.BAG IVPB SCH ×2 (13:30→14:43)
--- NOTE | 2017-12-09 13:30 | P.PN ---
Subjective Progress Note Date: 12/09/17 77-year-old female sitting up in bed continues to report wanting the nasal gastric tube out pleasant awake and alert cooperative still no active movement from the ostomy not passing gas and the nasogastric tube still draining TPN for nutritional support surgical dressing site [address] on red. Patient is making clinical improvement. Blueness and tingling to the tips of the fingers and feet are improving POSTOP December 01 diagnostic laparoscopy with lysis of adhesions exploratory laparotomy with partial colectomy mobilization splenic flexure, repair ventral hernia 2 done for severe septic shock suspect ischemic bowel Objective - Vital Signs Vital signs: Vital Signs Temp 98.0 F 12/09/17 12:00 Pulse 72 12/09/17 12:00 Resp 14 12/09/17 12:00 BP 120/62 12/09/17 12:00 Pulse Ox 99 12/09/17 12:00 Intake & Output 12/08/17 12/09/17 12/09/17 18:59 06:59 18:59 Intake Total 2012.333 1655.0 1411 Output Total 2243 1715 575 Balance -230.667 -60.0 836 Weight 93.9 kg 92.3 kg Intake: IV 1142 1655.0 400 0.9 for pressure 27 Amino Acid 5%-D15w+Lytes* 770 840 280 E* 1,000 ml @ 70 mls/hr IV .BY DURATION [facility] Rx#: [id number] Fluconazole in NaCl,Iso- 100 Osm 200 mg In Saline 1 100ml.bag @ 100 mls/hr IVPB DAILY@1800 [facility] Rx#: [id number] Magnesium Sulfate-D5w Pmx 100 1 gm In Dextrose/Water 1 100ml.bag @ 100 mls/hr IVPB Q1H [facility] Rx#: [id number] Magnesium Sulfate-D5w Pmx 100 100 1 gm In Dextrose/Water 1 100ml.bag @ 100 mls/hr IVPB Q1H [facility] Rx#: [id number] Piperacillin-Tazobactam 3 50.0 .375 gm In Dextrose/Water 1 50ml.bag @ 12.5 mls/hr IVPB Q8HR [facility] Rx#: [id number] Potassium Chloride 20 meq 100 300 In Water For Injection 1 100ml.bag @ 50 mls/hr IVPB Q2H [facility] Rx#: [id number] Potassium Chloride 20 meq 100 In Water For Injection 1 100ml.bag @ 50 mls/hr IVPB Q2H [facility] Rx#: [id number] Sodium Chloride 0.45% 1, 45 65 20 000 ml @ 5 mls/hr IV . Q24H [facility] Rx#:[id number] metroNIDAZOLE-NS PMX 500 100 100 mg In Saline 1 100ml.bag @ 100 mls/hr IVPB Q8HR [facility] Rx#:[id number] Intake, IV Titration 159.045 8543 Amount Mvi, Adult No.4 with Vit 768.719 7107 K 10 ml Trace (Conc-1Ml/ Dose) 1 ml In Amino Acid 5%-D15w+Lytes*E* 1,000 ml @ 70 mls/hr IV .BY DURATION [facility] Rx#: [id number] Output: Urine 2243 1715 575 Other: Voiding Method Indwelling Catheter Indwelling Catheter Indwelling Catheter ABP, PAP, CO, CI - Last Documented Arterial Blood Pressure 131/70 - Exam Exam 77-year-old female sitting up in bed increasingly more awake and alert oriented to self and place Lungs diminished at the bases otherwise adequate air movement no wheezing rales or rhonchi sats are 99% on 3 L Heart S1-S2 audible regular Abdomen ostomy stoma pink no stool no gas [address] suture line well approximated surgical dressing dry indwelling Miranda catheter in place nasogastric tube to suction few hypoactive bowel tones is not passing gas is not belching Extremities tips of the fingers dusky and the bottom of the feet decrease sensation - Labs CBC & Chem 7: 12/09/17 04:00 12/09/17 10:32 Labs: Abnormal Lab Results - Last 24 Hours (Table) 12/08/17 12/08/17 12/08/17 Range/Units 11:46 14:40 14:40 WBC (3.8-10.6) k/uL RBC (3.80-5.40) m/uL Hgb (11.4-16.0) gm/dL Hct (34.0-46.0) % INR 1.2 H (<1.2) Sodium (137-145) mmol/L Potassium 3.2 L (3.5-5.1) mmol/L Carbon Dioxide (22-30) mmol/L BUN (7-17) mg/dL Glucose (74-99) mg/dL POC Glucose (mg/dL) 119 H (75-99) mg/dL Calcium (8.4-10.2) mg/dL 12/08/17 12/08/17 12/09/17 Range/Units 18:13 23:06 00:00 WBC (3.8-10.6) k/uL RBC (3.80-5.40) m/uL Hgb (11.4-16.0) gm/dL Hct (34.0-46.0) % INR (<1.2) Sodium (137-145) mmol/L Potassium (3.5-5.1) mmol/L Carbon Dioxide (22-30) mmol/L BUN (7-17) mg/dL Glucose (74-99) mg/dL POC Glucose (mg/dL) 105 H 108 H 125 H (75-99) mg/dL Calcium (8.4-10.2) mg/dL 12/09/17 12/09/17 12/09/17 Range/Units 04:00 04:00 06:19 WBC 18.3 H (3.8-10.6) k/uL RBC 3.62 L (3.80-5.40) m/uL Hgb 10.8 L (11.4-16.0) gm/dL Hct 33.4 L (34.0-46.0) % INR (<1.2) Sodium 133 L (137-145) mmol/L Potassium (3.5-5.1) mmol/L Carbon Dioxide 32 H (22-30) mmol/L BUN 23 H (7-17) mg/dL Glucose 116 H (74-99) mg/dL POC Glucose (mg/dL) 116 H (75-99) mg/dL Calcium 7.8 L (8.4-10.2) mg/dL 12/09/17 Range/Units 11:44 WBC (3.8-10.6) k/uL RBC (3.80-5.40) m/uL Hgb (11.4-16.0) gm/dL Hct (34.0-46.0) % INR (<1.2) Sodium (137-145) mmol/L Potassium (3.5-5.1) mmol/L Carbon Dioxide (22-30) mmol/L BUN (7-17) mg/dL Glucose (74-99) mg/dL POC Glucose (mg/dL) 119 H (75-99) mg/dL Calcium (8.4-10.2) mg/dL Microbiology - Last 24 Hours (Table) 12/08/17 19:40 Catheter Tip Culture - Preliminary Catheter Tip 12/06/17 13:52 Blood Culture - Preliminary Blood No Growth after 48 hours Assessment and Plan Assessment: Impression Acute Septic shock secondary UTI and subsequent ischemic colitis Hypertension Ischemic gangrenous bowel status post resection with ostomy Present on admission abdominal pain suspect due to ischemic colitis Plan Continue postop surgical care Continue nasogastric tube to suction for now until bowel function resumes Continue TPN as ordered PT OT eval Will follow with you Progress note dictated for Dr. mihai apodaca on behalf of The above impression and plan of care have been discussed and directed by signing physician. Elisa Wise nurse practitioner acting as scribe for signing physician.
[2017-12-09] MEDS ORDERED: VANCOMYCIN 1,500 MG in SODIUM CHLORIDE 0.9% 250 ML IVPB ONE (14:00)
--- NOTE | 2017-12-09 15:29 | P.PN ---
Subjective Progress Note Date: 12/09/17 On today's evaluation of 12/06/2017, the patient is awake and alert. NG tube is in place. The patient has been nothing by mouth for the past 5 days as the patient underwent a extensive laparotomy, transverse colectomy, diverticulitis to me, repair of a ventral hernia 2. The patient came in with septic condition related to an underlying enterococcal urine checked infection subsequently she developed abdominal pain and presentation was typical of ischemic colitis. The patient underwent expiratory laparotomy in that regard. She was severely hemodynamics unstable and the patient required high doses of pressors and IV fluids and ultimately she improved to the point where she is currently off pressors. She developed some ischemia in the right foot and she is complaining of pain in the right lower extremity. This ischemia related to severe hypotension and use of high dose of pressors. At this point in time the skin is mottled and there is some areas of ecchymosis nevertheless the patient has adequate pulses in lower extremities bilaterally and vascular surgery evaluated the limbs. No signs of any gangrenous changes at this point in time. The patient currently extubated. The patient is currently on oxygen by nasal cannula. No respiratory distress. No cough or sputum production. No abdominal pain. The colostomy site is still nonfunctional. The tissue itself is viable and bowel sounds are absent at this point in time. TPN is being considered by general surgery. Antibiotic coverage includes IV Diflucan and IV Zosyn. The most recent blood cultures showing anaerobic growth in the blood probably of a intra-abdominal source and the urine cultures showing enterococcus faecalis, penicillin sensitive. The patient remains on IV Zosyn. The sputum is showing Fatoumata which is a colonizer. The chest x-ray from today shows a upper lobe infiltrate and left retrocardiac infiltration. No other abnormalities otherwise noted. On today's evaluation of a 2017, the patient is still awake and alert. She remains nothing by mouth. No bowel sounds. No bowel activity. Colostomy site is viable. There is no output within the colostomy bag. Bowel sounds are absent. NG tube is in place. Output from the NG tube has been to 50 mL for yesterday. The patient's net fluid balance is +6 26 mL over the past 24 hours. TPN was started yesterday for nutritional support. Noted the patient was septic. She has a enterococcus faecalis in the urine and anaerobic gram- negative bacillus and the blood and the patient remains on same antibiotic coverage including a combination of Zosyn and Diflucan. Furthermore, the chest x-ray from today shows development of patchy breath and pulmonary infiltrates. There is a right upper lobe infiltration left lower lobe infiltration which raises the concern for a superimposed pneumonia was at its ventilator as. Rule out healthcare associated or aspiration type. The patient has a congested cough. Unable to bring up much sputum. At this point in time, she is on oxygen at 2 L/m nasal cannula and his saturations around 95%. She is not spiking a fever and her white cell count is down to 13. Also, she still complaining of pain in lower extremity and she has decent pulses in lower extremities bilaterally. No altered mentation. No other significant events overnight. On 12/08/2017 patient is being seen for a follow-up. The patient awake and alert. NG tube is in place. Output has been around 300 mL for the past 24 hours and the patient is having on and off nausea. Remains nothing by mouth on TPN. The colostomy still nonfunctional and there is no output within the colostomy bag. On examination the patient has a normal abdominal wound and has some sluggish bowel sounds. She is receiving TPN for nutritional support. I give her a dose of Lasix and she is in a negative fluid balance as the patient is producing adequate amount of urine output and the net fluid balance is -7.3 L. She is producing more than 100 mL an hour of urine output and her potassium was dropped and is being replaced for now. Note that the blood culture came back positive for Bacteroides fragilis and the patient has Enterococcus faecalis in the urine and the patient remains on IV Zosyn and Diflucan. The chest x-ray showed patchy breath and pulmonary infiltrates yet despite this the patient is not having any significant rest or distress. No significant cough or sputum production. No fever. There is some improvement today's chest exam hoping that this may turn to be in acute lung injury or even fluid overload. The findings however looked to be more patchy specially in the right upper lobe. We'll going to continue to monitor this abnormality. No significant electrolyte disturbance and the hypokalemia. The white cell count is at 18.0. The patient has a IJ triple lumen catheter that will be ultimately switched to a PICC line for IV access and TPN administration. On today's evaluation of a 12/09/2017 the patient is resting comfortably in bed. She was able to sit up on a chair for brief period of time yesterday. NG tube is in place. Output is minimal. Colostomy site is still nonfunctional and there is no output from the colostomy bag. Abdomen is nondistended. Surgical wound site is the same. The patient is still receiving TPN for nutritional support. The plan is to remove the triple-lumen catheter and inserted a PICC line catheter today. The patient remains on Zosyn and Diflucan. The patient is having on and off nausea. No emesis has been noted. No fever or chills. No other significant events overnight. The chest x-ray from today shows improvement in the previously described pulmonary infiltrates. There is improvement in aeration and improvement in the volume status. There is some persistent lower lobe atelectatic changes and interstitial edema bilaterally. General surgeries on the case. No other significant events overnight. Mental status appropriate at this point in time. The net fluid balance is negative for yesterday and today. Objective - Vital Signs Vital signs: Vital Signs Temp 98.0 F 12/09/17 12:00 Pulse 78 12/09/17 14:00 Resp 20 12/09/17 14:00 BP 134/73 12/09/17 14:00 Pulse Ox 97 12/09/17 14:00 Intake & Output 12/08/17 12/09/17 12/09/17 18:59 06:59 18:59 Intake Total 2012.333 1655.0 1561 Output Total 2243 1715 748 Balance -230.667 -60.0 813 Weight 93.9 kg 92.3 kg Intake: IV 1142 1655.0 550 0.9 for pressure 27 Amino Acid 5%-D15w+Lytes* 770 840 420 E* 1,000 ml @ 70 mls/hr IV .BY DURATION [facility] Rx#: [id number] Fluconazole in NaCl,Iso- 100 Osm 200 mg In Saline 1 100ml.bag @ 100 mls/hr IVPB DAILY@1800 [facility] Rx#: [id number] Magnesium Sulfate-D5w Pmx 100 1 gm In Dextrose/Water 1 100ml.bag @ 100 mls/hr IVPB Q1H [facility] Rx#: [id number] Magnesium Sulfate-D5w Pmx 100 100 1 gm In Dextrose/Water 1 100ml.bag @ 100 mls/hr IVPB Q1H [facility] Rx#: [id number] Piperacillin-Tazobactam 3 50.0 .375 gm In Dextrose/Water 1 50ml.bag @ 12.5 mls/hr IVPB Q8HR [facility] Rx#: [id number] Potassium Chloride 20 meq 100 300 In Water For Injection 1 100ml.bag @ 50 mls/hr IVPB Q2H [facility] Rx#: [id number] Potassium Chloride 20 meq 100 In Water For Injection 1 100ml.bag @ 50 mls/hr IVPB Q2H [facility] Rx#: [id number] Sodium Chloride 0.45% 1, 45 65 30 000 ml @ 5 mls/hr IV . Q24H [facility] Rx#:[id number] metroNIDAZOLE-NS PMX 500 100 100 mg In Saline 1 100ml.bag @ 100 mls/hr IVPB Q8HR [facility] Rx#:[id number] Intake, IV Titration 195.098 2497 Amount Mvi, Adult No.4 with Vit 124.126 3029 K 10 ml Trace (Conc-1Ml/ Dose) 1 ml In Amino Acid 5%-D15w+Lytes*E* 1,000 ml @ 70 mls/hr IV .BY DURATION [facility] Rx#: [id number] Output: Urine 2243 1715 748 Other: Voiding Method Indwelling Catheter Indwelling Catheter Indwelling Catheter ABP, PAP, CO, CI - Last Documented Arterial Blood Pressure 131/70 - Exam No acute distress, awake and alert, nasal O2 in place. The patient has an NG tube in place and output has been only minimally without any significant output from the NG tube. HEENT examination is grossly unremarkable. Mucous membranes are moist. Neck supple. Full range of motion. No adenopathy thyromegaly or neck vein distention. Cardiovascular examination reveals regular rhythm rate. S1-S2 normal. No S3 or S4. No discernible murmur noted. Lungs reveal bilaterally equal breath sounds. Some bilateral coarse rhonchi are noted. No wheezes or crackles. Breath sounds equal bilaterally. Breath sounds are improved. Abdomen soft without bowel sounds. No masses. No tenderness. Fresh colostomy is noted. The patient has a colostomy site is viable. No output is in the colostomy bag. Bowel sounds are absent at this point. No abdominal distention. The patient has sumaya with retention sutures holding the abdominal wound together. Extremities are intact. Examination of the extremities revealed easily palpable radial, femoral and pedal pulses. There was no cyanosis, clubbing or edema. SkinExamination of the skin revealed no evidence of significant rashes, suspicious appearing nevi or other concerning lesions. The wound description as above Neurologic examination is difficult to assess but she moves all 4 extremities well. - Labs CBC & Chem 7: 12/09/17 04:00 12/09/17 10:32 Labs: Abnormal Lab Results - Last 24 Hours (Table) 12/08/17 12/08/17 12/08/17 Range/Units 11:46 14:40 18:13 WBC (3.8-10.6) k/uL RBC (3.80-5.40) m/uL Hgb (11.4-16.0) gm/dL Hct (34.0-46.0) % INR 1.2 H (<1.2) Sodium (137-145) mmol/L Carbon Dioxide (22-30) mmol/L BUN (7-17) mg/dL Glucose (74-99) mg/dL POC Glucose (mg/dL) 119 H 105 H (75-99) mg/dL Calcium (8.4-10.2) mg/dL 12/08/17 12/09/17 12/09/17 Range/Units 23:06 00:00 04:00 WBC (3.8-10.6) k/uL RBC (3.80-5.40) m/uL Hgb (11.4-16.0) gm/dL Hct (34.0-46.0) % INR (<1.2) Sodium 133 L (137-145) mmol/L Carbon Dioxide 32 H (22-30) mmol/L BUN 23 H (7-17) mg/dL Glucose 116 H (74-99) mg/dL POC Glucose (mg/dL) 108 H 125 H (75-99) mg/dL Calcium 7.8 L (8.4-10.2) mg/dL 12/09/17 12/09/17 12/09/17 Range/Units 04:00 06:19 11:44 WBC 18.3 H (3.8-10.6) k/uL RBC 3.62 L (3.80-5.40) m/uL Hgb 10.8 L (11.4-16.0) gm/dL Hct 33.4 L (34.0-46.0) % INR (<1.2) Sodium (137-145) mmol/L Carbon Dioxide (22-30) mmol/L BUN (7-17) mg/dL Glucose (74-99) mg/dL POC Glucose (mg/dL) 116 H 119 H (75-99) mg/dL Calcium (8.4-10.2) mg/dL Microbiology - Last 24 Hours (Table) 12/08/17 19:40 Catheter Tip Culture - Final Catheter Tip 12/06/17 13:52 Blood Culture - Preliminary Blood No Growth after 48 hours Assessment and Plan Plan: Assessment 1 acute septic shock secondary to UTI and subsequent ischemic colitis and the patient has enterococcal faecalis in in her urine and anaerobes and the blood culture. The patient is covered with a combination of Diflucan and Zosyn. The patient is postop day #7 exp laparotomy, colectomy, lysis of adhesions, diverticular colostomy and ventral hernia repair. The patient is slow to progress. The patient is still has an NG tube in place. She is on TPN for nutritional support. Abdominal wounds remains unchanged. No bowel activity and she is complaining of some nausea on and off during the day. Unable to take anything orally as normal bowel activity has been noted although there are some bowel sounds and today's evaluation. 2 septic shock with profound hypotension, recovered and the patient is currently hemodynamically stable 3 enterococcus faecalis in the urine, UTI 4 septicemia secondary to anaerobes, likely of a gastrointestinal source/ ischemic colitis, with Bacteroides fragilis. The patient is currently on IV Zosyn 5 ischemic right lower extremity/foot, improving and the patient has regained pulses in the right lower extremity and there is no evidence of any gangrenous transformation 6 lactic acidosis, recovered 7 hypoproteinemia and hypoalbuminemia secondary to above, currently on TPN 8 hypertension 9 hypothyroidism 10 acute kidney injury improving 11 leukocytosis, improving 12 patchy bilateral pulmonary infiltrates, on today's chest x-ray there is improvement in the volume status and improvement in the vital pulmonate infiltrates seen. Plan Continue TPN. Remove the triple-lumen catheter after insertion of a PICC line. Continue same antibiotic coverage. Add Reglan. Incentive spirometer. Increased mobility as tolerated and sit up the patient on a chair. We'll continue to follow. General surgeries on the case. Repeat chest x-ray and obtain an abdominal film for tomorrow.
--- NOTE | 2017-12-09 16:05 | P.PN ---
Progress Note - Text Progress Note Date: 12/09/17 The patient is evaluated today and follow-up care in reference to digital ischemia secondary to vasopressors. The patient has been off vasopressors for the past few days and indicates that both her hands and feet feel improved although she yet has some residual neuropathic-type symptoms. eye examination revealed palpable radial, dorsalis pedis and posterior tibial pulses are intact bilaterally. there is some residual although markedly improved ischemic changes of the left thumb. Digits /palm /wrist are normal to extension and flexion. The feet are mildly edematous although there is no open wound noted. Toes are freely movable. Impression: resolved digital vasospasm secondary to vaso- pressors I believe the A she'll go on total unremarkable recovery. timeframe is not predictable. I would recommend physical therapy for ambulatory status once the patient is able to tolerate therapy. The need for further intervention is not anticipated.
[2017-12-09] MEDS: FAT EMULSION 20% 250 ML in EMPTY BAG 1 BAG IV SCH (16:33)
[2017-12-09 18:03] LABS: Glucose,Whole Blood 103 mg/dL (75-99)
[2017-12-09] MEDS: FLUCONAZOLE IN NACL,ISO-OSM 200 MG in SALINE 1 100ML.BAG IVPB SCH (18:45)
--- NOTE | 2017-12-09 23:07 | PN ---
PROGRESS NOTE DATE OF SERVICE: 12/09/2017. REASON FOR FOLLOWUP: 1. Abdominal abscess secondary to colitis. 2. Elevated white count. INTERVAL HISTORY: The patient is currently afebrile. She is more awake. She is breathing comfortably. She did have a cough, but not bringing up any sputum. The central line was discontinued yesterday. She did get a PICC line and has pain in her toes and fingers. No diarrhea. EXAMINATION: Blood pressure 137/54 with a pulse of 70, temperature 97.6. She is 99% on 3 L nasal cannula. General description is an elderly female lying in bed in no distress. RESPIRATORY SYSTEM: Unlabored breathing. Decreased breath sounds in the bases, no wheeze. HEART: S1, S2. Regular rate and rhythm. ABDOMEN: Soft, no tenderness. EXTREMITIES: No edema of feet. LABS: Hemoglobin is 10.2, white count of 18.3, BUN of 23, creatinine 0.80. Blood culture so far negative. DIAGNOSTIC IMPRESSION AND PLAN: Patient with ischemic colitis with abdominal sepsis and Bacteroides fragilis bacteremia, status post surgery. The patient's white count showing a downward trend. Over the last 2 days, white count has been up . The central line was discontinued. We will add vancomycin and follow her white count very closely. Keep the patient on Zosyn and Diflucan at this point. Adjusting antibiotics for the clinical response. Family present at bedside. Questions answered. MMODL / IJN: [id number] /
[2017-12-09] MEDS: SODIUM CHLORIDE 0.45% 1,000 ML IV SCH (23:46)
[2017-12-09 23:48] LABS: Glucose,Whole Blood 113 mg/dL (75-99)
[2017-12-10 04:52] LABS: HCT 30.8 % (34.0-46.0); HGB 9.7 gm/dL (11.4-16.0); MCH 29.5 pg (25.0-35.0); MCHC 31.5 g/dL (31.0-37.0); MCV 93.8 fL (80.0-100.0); Mean Platelet Volume 7.8; Platelet Count 245 k/uL (150-450); RBC 3.29 m/uL (3.80-5.40); RDW 14.5 % (11.5-15.5); WBC 18.6 k/uL (3.8-10.6)
[2017-12-10 05:08] LABS: Ionized Calcium 4.8 mg/dL (4.5-5.3)
[2017-12-10] MEDS: VANCOMYCIN 1,500 MG in SODIUM CHLORIDE 0.9% 250 ML IVPB SCH (05:11)
[2017-12-10] MEDS: METOCLOPRAMIDE 5 MG/ML 2 ML VIAL IVP SCH ×4 (05:12→23:30)
[2017-12-10 05:18] LABS: Magnesium 1.9 mg/dL (1.6-2.3); Phosphorus 3.8 mg/dL (2.5-4.5); Potassium 3.7 mmol/L (3.5-5.1)
[2017-12-10] MEDS: ONDANSETRON 4 MG/2 ML VIAL IVP PRN ×3 (05:20→19:58)
[2017-12-10 05:32] LABS: Glucose,Whole Blood 103 mg/dL (75-99)
[2017-12-10] MEDS: HYDROmorphone 1 MG/ML 1 ML SYRINGE IVP PRN ×6 (05:51→23:28)
[2017-12-10] MEDS: POTASSIUM CHLORIDE 10 MEQ in WATER FOR INJECTION 1 100ML.BAG IVPB SCH ×2 (06:43→08:40)
[2017-12-10] MEDS: MAGNESIUM SULFATE-D5W PMX 1 GM in DEXTROSE/WATER 1 100ML.BAG IVPB SCH ×2 (06:43→08:49)
[2017-12-10] MEDS: INSULIN ASPART 100 UNIT/ML 1 ML 10 ML VIAL SQ SCH ×4 (06:48→23:32)
--- NOTE | 2017-12-10 06:58 | XR ---
EXAMINATION TYPE: XR chest 1V portable DATE OF EXAM: 12/10/2017 CLINICAL HISTORY: Difficulty breathing progress study. TECHNIQUE: Single AP portable upright view of the chest is obtained. COMPARISON: Chest x-ray from one day earlier and older studies. FINDINGS: A nasogastric tube and right-sided PICC line are stable in appearance. There is cardiomega ly with dual lead pacemaker redemonstrated . There is left basilar opacity felt to reflect infiltrate and/or atelectasis and probable small left pleural effusion. There is background chronic parenchymal change. Right lung is clear. Surgical change right humeral head level is redemonstrated. IMPRESSION: Overall stable findings, chronic parenchymal change and cardiomegaly with persistent sm all left pleural effusion and associated left basilar atelectasis and/or infiltrate.
[2017-12-10] MEDS: IPRATROPIUM-ALBUTEROL 3 ML NEB INHALATION SCH ×4 (07:58→19:50)
[2017-12-10] MEDS: PANTOPRAZOLE 40 MG/10 ML VIAL IV SCH (08:39)
[2017-12-10] MEDS: LEVOTHYROXINE IVP 100 MCG/5 ML VIAL IV SCH (08:39)
[2017-12-10] MEDS: HEPARIN SODIUM,PORCINE 5,000 UNIT/ML 1 ML VIAL SQ SCH ×2 (08:40→20:00)
[2017-12-10] MEDS: PIPERACILLIN-TAZOBACTAM 3.375 GM in DEXTROSE/WATER 1 50ML.BAG IVPB SCH ×3 (09:38→23:29)
[2017-12-10] MEDS: metroNIDAZOLE-NS PMX 500 MG in SALINE 1 100ML.BAG IVPB SCH ×3 (09:48→23:29)
--- NOTE | 2017-12-10 10:30 | XR ---
EXAMINATION TYPE: XR abdomen 1V DATE OF EXAM: 12/10/2017 10:14 AM CLINICAL HISTORY: Abdominal pain and bloating, ileus. TECHNIQUE: Single supine KUB image of the abdomen is obtained. COMPARISON: Abdominal x-ray and CT abdomen and pelvis from December 01, 2017 FINDINGS: New vertical skin sumaya are noted from interval surgery. There is redemonstration of naso gastric tube projecting below diaphragm when comparison with recent chest x-rays. Gas-filled small sincere wel loops in the left abdomen are identified. There are slightly more prominent than normal but not s uspiciously dilated. Gas and fecal material is seen in nondistended colon in the right abdomen. Scatt ered pelvic phlebolith are redemonstrated. Multilevel spurring and disc space narrowing throughout th e lumbar spine is seen. Asymmetric increased moderate to severe degenerative change right hip joint i s redemonstrated. IMPRESSION: Overall nonobstructive bowel gas pattern there is felt to remain present.
[2017-12-10 12:28] LABS: Glucose,Whole Blood 112 mg/dL (75-99)
--- NOTE | 2017-12-10 13:25 | P.PN ---
Subjective Progress Note Date: 12/10/17 On today's evaluation of 12/06/2017, the patient is awake and alert. NG tube is in place. The patient has been nothing by mouth for the past 5 days as the patient underwent a extensive laparotomy, transverse colectomy, diverticulitis to me, repair of a ventral hernia 2. The patient came in with septic condition related to an underlying enterococcal urine checked infection subsequently she developed abdominal pain and presentation was typical of ischemic colitis. The patient underwent expiratory laparotomy in that regard. She was severely hemodynamics unstable and the patient required high doses of pressors and IV fluids and ultimately she improved to the point where she is currently off pressors. She developed some ischemia in the right foot and she is complaining of pain in the right lower extremity. This ischemia related to severe hypotension and use of high dose of pressors. At this point in time the skin is mottled and there is some areas of ecchymosis nevertheless the patient has adequate pulses in lower extremities bilaterally and vascular surgery evaluated the limbs. No signs of any gangrenous changes at this point in time. The patient currently extubated. The patient is currently on oxygen by nasal cannula. No respiratory distress. No cough or sputum production. No abdominal pain. The colostomy site is still nonfunctional. The tissue itself is viable and bowel sounds are absent at this point in time. TPN is being considered by general surgery. Antibiotic coverage includes IV Diflucan and IV Zosyn. The most recent blood cultures showing anaerobic growth in the blood probably of a intra-abdominal source and the urine cultures showing enterococcus faecalis, penicillin sensitive. The patient remains on IV Zosyn. The sputum is showing Fatoumata which is a colonizer. The chest x-ray from today shows a upper lobe infiltrate and left retrocardiac infiltration. No other abnormalities otherwise noted. On today's evaluation of a 2017, the patient is still awake and alert. She remains nothing by mouth. No bowel sounds. No bowel activity. Colostomy site is viable. There is no output within the colostomy bag. Bowel sounds are absent. NG tube is in place. Output from the NG tube has been to 50 mL for yesterday. The patient's net fluid balance is +6 26 mL over the past 24 hours. TPN was started yesterday for nutritional support. Noted the patient was septic. She has a enterococcus faecalis in the urine and anaerobic gram- negative bacillus and the blood and the patient remains on same antibiotic coverage including a combination of Zosyn and Diflucan. Furthermore, the chest x-ray from today shows development of patchy breath and pulmonary infiltrates. There is a right upper lobe infiltration left lower lobe infiltration which raises the concern for a superimposed pneumonia was at its ventilator as. Rule out healthcare associated or aspiration type. The patient has a congested cough. Unable to bring up much sputum. At this point in time, she is on oxygen at 2 L/m nasal cannula and his saturations around 95%. She is not spiking a fever and her white cell count is down to 13. Also, she still complaining of pain in lower extremity and she has decent pulses in lower extremities bilaterally. No altered mentation. No other significant events overnight. On 12/08/2017 patient is being seen for a follow-up. The patient awake and alert. NG tube is in place. Output has been around 300 mL for the past 24 hours and the patient is having on and off nausea. Remains nothing by mouth on TPN. The colostomy still nonfunctional and there is no output within the colostomy bag. On examination the patient has a normal abdominal wound and has some sluggish bowel sounds. She is receiving TPN for nutritional support. I give her a dose of Lasix and she is in a negative fluid balance as the patient is producing adequate amount of urine output and the net fluid balance is -7.3 L. She is producing more than 100 mL an hour of urine output and her potassium was dropped and is being replaced for now. Note that the blood culture came back positive for Bacteroides fragilis and the patient has Enterococcus faecalis in the urine and the patient remains on IV Zosyn and Diflucan. The chest x-ray showed patchy breath and pulmonary infiltrates yet despite this the patient is not having any significant rest or distress. No significant cough or sputum production. No fever. There is some improvement today's chest exam hoping that this may turn to be in acute lung injury or even fluid overload. The findings however looked to be more patchy specially in the right upper lobe. We'll going to continue to monitor this abnormality. No significant electrolyte disturbance and the hypokalemia. The white cell count is at 18.0. The patient has a IJ triple lumen catheter that will be ultimately switched to a PICC line for IV access and TPN administration. On today's evaluation of a 12/09/2017 the patient is resting comfortably in bed. She was able to sit up on a chair for brief period of time yesterday. NG tube is in place. Output is minimal. Colostomy site is still nonfunctional and there is no output from the colostomy bag. Abdomen is nondistended. Surgical wound site is the same. The patient is still receiving TPN for nutritional support. The plan is to remove the triple-lumen catheter and inserted a PICC line catheter today. The patient remains on Zosyn and Diflucan. The patient is having on and off nausea. No emesis has been noted. No fever or chills. No other significant events overnight. The chest x-ray from today shows improvement in the previously described pulmonary infiltrates. There is improvement in aeration and improvement in the volume status. There is some persistent lower lobe atelectatic changes and interstitial edema bilaterally. General surgeries on the case. No other significant events overnight. Mental status appropriate at this point in time. The net fluid balance is negative for yesterday and today. On 12/10/2017 patient is essentially the same. Unfortunately were not seeing any bowel activity yet. Colostomy site is viable yet there is no output noted. There are bowel sounds are regular was added yesterday. NG tube producing approximately 100 ML's every 8 hours. The patient is afebrile. She is receiving TPN for nutritional support. Surgical wound site is dry clean and intact. Chest x-ray findings are improving and the patient has some limited residual atelectasis/effusion the left lung base. She has a PICC line. He is on IV Zosyn and Diflucan. No altered mentation. No shortness of breath. She is resting comfortably in bed. She is weak. She was able to sit up on a chair yesterday. A flat film of the abdomen was done and showed an overall nonobstructive bowel gas pattern and there was no evidence of ileus or bowel obstruction. Objective - Vital Signs Vital signs: Vital Signs Temp 97.9 F 12/10/17 12:00 Pulse 73 12/10/17 12:00 Resp 15 12/10/17 12:00 BP 151/72 12/10/17 12:00 Pulse Ox 98 12/10/17 12:00 Intake & Output 12/09/17 12/10/17 12/10/17 18:59 06:59 18:59 Intake Total 1998 1754.0 712.5 Output Total 1233 1230 730 Balance 766 524.0 -17.5 Weight 91.6 kg 91.6 kg Intake: IV 925 1565.0 512.5 Amino Acid 5%-D15w+Lytes* 770 910 350 E* 1,000 ml @ 70 mls/hr IV .BY DURATION [facility] Rx#: [id number] Magnesium Sulfate-D5w Pmx 100 100 1 gm In Dextrose/Water 1 100ml.bag @ 100 mls/hr IVPB Q1H [facility] Rx#: [id number] Piperacillin-Tazobactam 3 50.0 37.5 .375 gm In Dextrose/Water 1 50ml.bag @ 12.5 mls/hr IVPB Q8HR [facility] Rx#: [id number] Potassium Chloride 10 meq 100 100 In Water For Injection 1 100ml.bag @ 100 mls/hr IVPB Q1H [facility] Rx#: [id number] Sodium Chloride 0.45% 1, 55 55 25 000 ml @ 5 mls/hr IV . Q24H [facility] Rx#:[id number] Vancomycin 1,500 mg In 250 Sodium Chloride 0.9% 250 ml @ 125 mls/hr IVPB Q24H [facility] Rx#:[id number] metroNIDAZOLE-NS PMX 500 100 mg In Saline 1 100ml.bag @ 100 mls/hr IVPB Q6HR [facility] Rx#:[id number] Intake, IV Titration 1011 200 Amount Magnesium Sulfate-D5w Pmx 100 1 gm In Dextrose/Water 1 100ml.bag @ 100 mls/hr IVPB Q1H [facility] Rx#: [id number] Mvi, Adult No.4 with Vit 1011 K 10 ml Trace (Conc-1Ml/ Dose) 1 ml In Amino Acid 5%-D15w+Lytes*E* 1,000 ml @ 70 mls/hr IV .BY DURATION [facility] Rx#: [id number] metroNIDAZOLE-NS PMX 500 100 mg In Saline 1 100ml.bag @ 100 mls/hr IVPB Q8HR [facility] Rx#:[id number] Lipid 63 189 Amino Acid 5%-D15w+Lytes* 63 189 E* 1,000 ml @ 70 mls/hr IV .BY DURATION [facility] Rx#: [id number] Output: Urine 1233 1230 700 Stool 30 Other: Voiding Method Indwelling Catheter Indwelling Catheter Indwelling Catheter # Voids 50 ABP, PAP, CO, CI - Last Documented Arterial Blood Pressure 131/70 - Exam No acute distress, awake and alert, nasal O2 in place. The patient has an NG tube in place and output has been only minimally without any significant output from the NG tube. HEENT examination is grossly unremarkable. Mucous membranes are moist. Neck supple. Full range of motion. No adenopathy thyromegaly or neck vein distention. Cardiovascular examination reveals regular rhythm rate. S1-S2 normal. No S3 or S4. No discernible murmur noted. Lungs reveal bilaterally equal breath sounds. Some bilateral coarse rhonchi are noted. No wheezes or crackles. Breath sounds equal bilaterally. Breath sounds are improved. Abdomen soft without bowel sounds. No masses. No tenderness. Fresh colostomy is noted. The patient has a colostomy site is viable. No output is in the colostomy bag. Bowel sounds are absent at this point. No abdominal distention. The patient has sumaya with retention sutures holding the abdominal wound together. Extremities are intact. Examination of the extremities revealed easily palpable radial, femoral and pedal pulses. There was no cyanosis, clubbing or edema. SkinExamination of the skin revealed no evidence of significant rashes, suspicious appearing nevi or other concerning lesions. The wound description as above Neurologic examination is difficult to assess but she moves all 4 extremities well. - Labs CBC & Chem 7: 12/10/17 04:40 12/10/17 04:40 Labs: Abnormal Lab Results - Last 24 Hours (Table) 12/09/17 12/09/17 12/10/17 Range/Units 17:49 23:39 04:40 WBC (3.8-10.6) k/uL RBC (3.80-5.40) m/uL Hgb (11.4-16.0) gm/dL Hct (34.0-46.0) % Sodium 132 L (137-145) mmol/L Carbon Dioxide 31 H (22-30) mmol/L BUN 22 H (7-17) mg/dL Glucose 107 H (74-99) mg/dL POC Glucose (mg/dL) 103 H 113 H (75-99) mg/dL Calcium 8.0 L (8.4-10.2) mg/dL 12/10/17 12/10/17 12/10/17 Range/Units 04:40 05:12 12:07 WBC 18.6 H (3.8-10.6) k/uL RBC 3.29 L (3.80-5.40) m/uL Hgb 9.7 L (11.4-16.0) gm/dL Hct 30.8 L (34.0-46.0) % Sodium (137-145) mmol/L Carbon Dioxide (22-30) mmol/L BUN (7-17) mg/dL Glucose (74-99) mg/dL POC Glucose (mg/dL) 103 H 112 H (75-99) mg/dL Calcium (8.4-10.2) mg/dL Microbiology - Last 24 Hours (Table) 12/06/17 13:52 Blood Culture - Preliminary Blood No Growth after 72 hours 12/08/17 19:40 Catheter Tip Culture - Final Catheter Tip Assessment and Plan Plan: Assessment 1 acute septic shock secondary to UTI and subsequent ischemic colitis and the patient has enterococcal faecalis in in her urine and anaerobes and the blood culture. The patient is covered with a combination of Diflucan and Zosyn. The patient is postop day #8 exp laparotomy, colectomy, lysis of adhesions, diverticular colostomy and ventral hernia repair. 2 septic shock , recovered. The patient was septic from an anaerobic infection related to ischemic colitis and Bacteroides fragilis was cultured and the blood. 3 enterococcus faecalis in the urine, UTI 4 nonfunctioning colostomy post colectomy and the patient has NG tube in place and the patient is still on TPN for nutritional support. Flat film of the abdomen showed no evidence of any bowel obstruction or ileus and the patient is currently on TPN. Patient is also on Reglan. Surgical wound site is dry clean and intact. 5 ischemic right lower extremity/foot, improving and the patient has regained pulses in the right lower extremity and there is no evidence of any gangrenous transformation 6 lactic acidosis, recovered 7 hypoproteinemia and hypoalbuminemia secondary to above, currently on TPN 8 hypertension 9 hypothyroidism 10 acute kidney injury, recovered and the renal function is normalized 11 leukocytosis, improving 12 patchy bilateral pulmonary infiltrates, on today's chest x-ray there is improvement in the volume status and improvement Plan Continue TPN. Continue same antibiotic coverage. Add Reglan. Incentive spirometer. Increased mobility as tolerated and sit up the patient on a chair. We'll continue to follow. General surgeries on the case. Continue IV Reglan. Monitor white count. Monitor fever pattern. Monitor the wound. She is slow to progress. We'll keep her in the ICU.
--- NOTE | 2017-12-10 15:25 | P.PN ---
Subjective 77-year-old admitted secondary to ischemic colitis underwent a laparotomy transverse colectomy found to have diverticulitis as well and had a ventral hernia repair patient is in ICU for septic shock shock improved patient has enterococcus in the urine and gram-negative to anaerobic bacteria in the blood repeat blood cultures were obtained. Patient is on Zosyn to cover the still patient is also on empiric Diflucan vancomycin was discontinued patient is off pressor support patient remains to have an G2 patient does have TPN in place. NG tube is still draining. By the time I evaluated the patient patient received a narcotics for pain because of which the patient is bit sleepy and bit confused although was asking appropriate questions like when her NG tube will be out. Has sluggish bowel sounds on exam. 12/07/2017 Patient the continues to have an G2 no significant improvement compared to yesterday. Patient is on TPN at this time. 12/08/2017 Patient is to have nasogastric tube with the little bit of drainage confusion improved area patient is comparing of nausea. Probably secondary to antibiotics patient is Zosyn and metronidazole. Patient received Lasix with significant improvement in her respiratory status. Patient is urinating well. IJ central line was removed and patient is receiving PICC line. Patient had minimally worsening white blood cell count. Low potassium which will be supplemented secondary to Lasix she received an pulmonary edema improved after Lasix. 12/09/2017 Significant changes clinically overall. Patient still has an NG tube with minimal drainage. Respiratory status did improve sodium has gone down a little bit. Patient's vasospasm and bluish discoloration of the toe secondary to not epinephrine is getting better. Patient is off Nor-epinephrine. 12/10/2017 Patient can use to have NG tube slow and steady improvement. No overnight events. Objective - Vital Signs Vital signs: Vital Signs Temp 97.9 F 12/10/17 12:00 Pulse 73 12/10/17 12:00 Resp 15 12/10/17 12:00 BP 151/72 12/10/17 12:00 Pulse Ox 98 12/10/17 12:00 Intake & Output 12/09/17 12/10/17 12/10/17 18:59 06:59 18:59 Intake Total 1998 1754.0 712.5 Output Total 1233 1230 730 Balance 766 524.0 -17.5 Weight 91.6 kg 91.6 kg Intake: IV 925 1565.0 512.5 Amino Acid 5%-D15w+Lytes* 770 910 350 E* 1,000 ml @ 70 mls/hr IV .BY DURATION [facility] Rx#: [id number] Magnesium Sulfate-D5w Pmx 100 100 1 gm In Dextrose/Water 1 100ml.bag @ 100 mls/hr IVPB Q1H [facility] Rx#: [id number] Piperacillin-Tazobactam 3 50.0 37.5 .375 gm In Dextrose/Water 1 50ml.bag @ 12.5 mls/hr IVPB Q8HR [facility] Rx#: [id number] Potassium Chloride 10 meq 100 100 In Water For Injection 1 100ml.bag @ 100 mls/hr IVPB Q1H [facility] Rx#: [id number] Sodium Chloride 0.45% 1, 55 55 25 000 ml @ 5 mls/hr IV . Q24H [facility] Rx#:[id number] Vancomycin 1,500 mg In 250 Sodium Chloride 0.9% 250 ml @ 125 mls/hr IVPB Q24H [facility] Rx#:[id number] metroNIDAZOLE-NS PMX 500 100 mg In Saline 1 100ml.bag @ 100 mls/hr IVPB Q6HR [facility] Rx#:[id number] Intake, IV Titration 1011 200 Amount Magnesium Sulfate-D5w Pmx 100 1 gm In Dextrose/Water 1 100ml.bag @ 100 mls/hr IVPB Q1H [facility] Rx#: [id number] Mvi, Adult No.4 with Vit 1011 K 10 ml Trace (Conc-1Ml/ Dose) 1 ml In Amino Acid 5%-D15w+Lytes*E* 1,000 ml @ 70 mls/hr IV .BY DURATION [facility] Rx#: [id number] metroNIDAZOLE-NS PMX 500 100 mg In Saline 1 100ml.bag @ 100 mls/hr IVPB Q8HR [facility] Rx#:[id number] Lipid 63 189 Amino Acid 5%-D15w+Lytes* 63 189 E* 1,000 ml @ 70 mls/hr IV .BY DURATION [facility] Rx#: [id number] Output: Urine 1233 1230 700 Stool 30 Other: Voiding Method Indwelling Catheter Indwelling Catheter Indwelling Catheter # Voids 50 ABP, PAP, CO, CI - Last Documented Arterial Blood Pressure 131/70 - Exam PHYSICAL EXAMINATION: GENERAL: Drowsy, arousable and able to assess his orientation HEENT: Pupils are round and equally reacting to light. EOMI. No scleral icterus. No conjunctival pallor. Normocephalic, atraumatic. No pharyngeal erythema. No thyromegaly. CARDIOVASCULAR: S1 and S2 present. No murmurs, rubs, or gallops. PULMONARY: Chest is clear to auscultation, no wheezing or crackles. ABDOMEN: Sluggish bowel sounds NG tube in place colostomy bag in place MUSCULOSKELETAL: No joint swelling or deformity. EXTREMITIES: No cyanosis, clubbing, or pedal edema. NEUROLOGICAL: Gross neurological examination did not reveal any focal deficits. SKIN: No rashes. - Labs CBC & Chem 7: 12/10/17 04:40 12/10/17 04:40 Labs: Abnormal Lab Results - Last 24 Hours (Table) 12/09/17 12/09/17 12/10/17 Range/Units 17:49 23:39 04:40 WBC (3.8-10.6) k/uL RBC (3.80-5.40) m/uL Hgb (11.4-16.0) gm/dL Hct (34.0-46.0) % Sodium 132 L (137-145) mmol/L Carbon Dioxide 31 H (22-30) mmol/L BUN 22 H (7-17) mg/dL Glucose 107 H (74-99) mg/dL POC Glucose (mg/dL) 103 H 113 H (75-99) mg/dL Calcium 8.0 L (8.4-10.2) mg/dL 12/10/17 12/10/17 12/10/17 Range/Units 04:40 05:12 12:07 WBC 18.6 H (3.8-10.6) k/uL RBC 3.29 L (3.80-5.40) m/uL Hgb 9.7 L (11.4-16.0) gm/dL Hct 30.8 L (34.0-46.0) % Sodium (137-145) mmol/L Carbon Dioxide (22-30) mmol/L BUN (7-17) mg/dL Glucose (74-99) mg/dL POC Glucose (mg/dL) 103 H 112 H (75-99) mg/dL Calcium (8.4-10.2) mg/dL Microbiology - Last 24 Hours (Table) 12/06/17 13:52 Blood Culture - Preliminary Blood No Growth after 72 hours 12/08/17 19:40 Catheter Tip Culture - Final Catheter Tip Assessment and Plan Plan: -Septic shock shock resolved secondary to colitis. Patient is on Zosyn and metronidazole patient has enterococcus in the urine significant of which is unknown although Zosyn, covers that organism as well. 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 -Toxic encephalopathy from opiates which resolved. -Fluid overload and pulmonary edema secondary to IV fluids she received which improved with Lasix. -Nor epinephrine induced vasoconstriction and bluish discoloration of the toes
[2017-12-10] MEDS: FAT EMULSION 20% 250 ML in EMPTY BAG 1 BAG IV SCH (16:50)
--- NOTE | 2017-12-10 17:05 | PN ---
PROGRESS NOTE DATE OF SERVICE: 12/10/2017 Mrs. Lopez is resting comfortably in her bed. She has minimal complaints of incisional pain. On exam, her vital signs are stable. There is some limited output through the ostomy. She has no real bowel sounds. Status post colectomy for ischemic bowel. The patient has continued ileus. She will continue to have [id number]. We will follow with you. MMODL / IJN: [id number] /
[2017-12-10 17:53] LABS: Glucose,Whole Blood 98 mg/dL (75-99)
--- NOTE | 2017-12-10 17:53 | PN ---
PROGRESS NOTE DATE OF SERVICE: 12/10/2017. REASON FOR FOLLOWUP: Abdominal sepsis with persistent elevated white count. INTERVAL HISTORY: The patient is currently afebrile. She is breathing comfortably. Still complaining of a NG tube in her left nostril. Denies having any chest pain. She did have cough, not bringing up any sputum. No abdominal pain. Incision looks clean. Still has no output in the colostomy bag. EXAMINATION: Blood pressure 151/72 with a pulse of 78. Temperature 97.9. She is 98% on 2 L nasal cannula. General description is an elderly female, lying in bed in no distress. RESPIRATORY SYSTEM: Unlabored breathing. Clear to auscultation anteriorly. HEART: S1, S2. Regular rate and rhythm. ABDOMEN: Soft, no tenderness. Incision looks clean. EXTREMITIES: Some trace edema feet. LABS: Hemoglobin is 9.7, white count 18.6 with a BUN of 22, creatinine 0.80. Catheter culture has been negative. Blood culture negative. Sputum with Fatoumata albicans. DIAGNOSTIC IMPRESSION AND PLAN: Patient with ischemic colitis, status post laparotomy with diverting colostomy. Patient did show overall improvement clinically as well as white count showing downward trend. However, the last few days, white count has been showing upward trend. The central line was discontinued and Vanco was added. White count still elevated. Patient does not look toxic. No fever. Continue to monitor closely. She is currently covered with broad spectrum antibiotics in the form of Zosyn and Vanco as well as Diflucan. If any further rise in white count or any fever, to reculture before adjusting antibiotic further. Continue supportive care. MMODL / IJN: [id number] /
[2017-12-10] MEDS: FLUCONAZOLE IN NACL,ISO-OSM 200 MG in SALINE 1 100ML.BAG IVPB SCH (18:00)
[2017-12-10] MEDS: SODIUM CHLORIDE 0.45% 1,000 ML IV SCH (19:58)
[2017-12-10 23:34] LABS: Glucose,Whole Blood 97 mg/dL (75-99)
[2017-12-11] MEDS: 1: MVI, ADULT NO.4 WITH VIT K 10 ML, TRACE (CONC-1ML/DOSE) 1 ML in AMINO ACID 5%-D15W+LY IV SCH ×6 (03:33→18:14)
[2017-12-11 05:02] LABS: HCT 32.4 % (34.0-46.0); HGB 10.4 gm/dL (11.4-16.0); MCH 30.1 pg (25.0-35.0); MCHC 32.1 g/dL (31.0-37.0); MCV 93.8 fL (80.0-100.0); Mean Platelet Volume 7.4; Platelet Count 271 k/uL (150-450); RBC 3.45 m/uL (3.80-5.40); RDW 14.5 % (11.5-15.5)
[2017-12-11] MEDS: VANCOMYCIN 1,500 MG in SODIUM CHLORIDE 0.9% 250 ML IVPB SCH (05:53)
[2017-12-11] MEDS: HYDROmorphone 1 MG/ML 1 ML SYRINGE IVP PRN ×5 (05:53→21:00)
[2017-12-11 05:57] LABS: Ionized Calcium 4.9 mg/dL (4.5-5.3)
[2017-12-11 06:02] LABS: Glucose,Whole Blood 104 mg/dL (75-99)
[2017-12-11 06:02] LABS: Glucose,Whole Blood 69 mg/dL (75-99)
[2017-12-11] MEDS: INSULIN ASPART 100 UNIT/ML 1 ML 10 ML VIAL SQ SCH ×3 (06:03→18:51)
[2017-12-11] MEDS: METOCLOPRAMIDE 5 MG/ML 2 ML VIAL IVP SCH ×3 (06:04→18:51)
[2017-12-11 06:24] LABS: Magnesium 1.9 mg/dL (1.6-2.3); Phosphorus 3.8 mg/dL (2.5-4.5); Potassium 3.9 mmol/L (3.5-5.1)
[2017-12-11] MEDS: MAGNESIUM SULFATE-D5W PMX 1 GM in DEXTROSE/WATER 1 100ML.BAG IVPB SCH ×2 (06:53→08:50)
[2017-12-11] MEDS: POTASSIUM CHLORIDE 10 MEQ in WATER FOR INJECTION 1 100ML.BAG IVPB SCH ×2 (06:53→08:49)
--- NOTE | 2017-12-11 06:59 | XR ---
EXAMINATION TYPE: XR chest 1V portable DATE OF EXAM: 12/11/2017 HISTORY: NGT in place. REFERENCE: Previous study dated 12/10/2017. FINDINGS: An NG tube remains in place, unchanged in appearance. A right basilic PICC line is in place . Its tip is in the superior vena cava. There is a bipolar pacemaker place on the left. The heart is upper limits of normal in size. There is left basilar airspace disease. There is mild va scular congestion. There are bilateral effusions, greater on the left than the right. IMPRESSION: NO SIGNIFICANT INTERVAL CHANGE IN APPEARANCE OF THE CHEST.
[2017-12-11] MEDS: PIPERACILLIN-TAZOBACTAM 3.375 GM in DEXTROSE/WATER 1 50ML.BAG IVPB SCH ×2 (08:42→15:47)
[2017-12-11] MEDS: metroNIDAZOLE-NS PMX 500 MG in SALINE 1 100ML.BAG IVPB SCH ×2 (08:43→15:47)
[2017-12-11] MEDS: HEPARIN SODIUM,PORCINE 5,000 UNIT/ML 1 ML VIAL SQ SCH ×2 (08:48→21:01)
[2017-12-11] MEDS: LEVOTHYROXINE IVP 100 MCG/5 ML VIAL IV SCH (08:48)
[2017-12-11] MEDS: IPRATROPIUM-ALBUTEROL 3 ML NEB INHALATION SCH ×4 (08:49→19:51)
[2017-12-11] MEDS: PANTOPRAZOLE 40 MG/10 ML VIAL IV SCH (11:01)
--- NOTE | 2017-12-11 11:47 | P.PN ---
Subjective Progress Note Date: 12/11/17 On today's evaluation of 12/06/2017, the patient is awake and alert. NG tube is in place. The patient has been nothing by mouth for the past 5 days as the patient underwent a extensive laparotomy, transverse colectomy, diverticulitis to me, repair of a ventral hernia 2. The patient came in with septic condition related to an underlying enterococcal urine checked infection subsequently she developed abdominal pain and presentation was typical of ischemic colitis. The patient underwent expiratory laparotomy in that regard. She was severely hemodynamics unstable and the patient required high doses of pressors and IV fluids and ultimately she improved to the point where she is currently off pressors. She developed some ischemia in the right foot and she is complaining of pain in the right lower extremity. This ischemia related to severe hypotension and use of high dose of pressors. At this point in time the skin is mottled and there is some areas of ecchymosis nevertheless the patient has adequate pulses in lower extremities bilaterally and vascular surgery evaluated the limbs. No signs of any gangrenous changes at this point in time. The patient currently extubated. The patient is currently on oxygen by nasal cannula. No respiratory distress. No cough or sputum production. No abdominal pain. The colostomy site is still nonfunctional. The tissue itself is viable and bowel sounds are absent at this point in time. TPN is being considered by general surgery. Antibiotic coverage includes IV Diflucan and IV Zosyn. The most recent blood cultures showing anaerobic growth in the blood probably of a intra-abdominal source and the urine cultures showing enterococcus faecalis, penicillin sensitive. The patient remains on IV Zosyn. The sputum is showing Fatoumata which is a colonizer. The chest x-ray from today shows a upper lobe infiltrate and left retrocardiac infiltration. No other abnormalities otherwise noted. On today's evaluation of a 2017, the patient is still awake and alert. She remains nothing by mouth. No bowel sounds. No bowel activity. Colostomy site is viable. There is no output within the colostomy bag. Bowel sounds are absent. NG tube is in place. Output from the NG tube has been to 50 mL for yesterday. The patient's net fluid balance is +6 26 mL over the past 24 hours. TPN was started yesterday for nutritional support. Noted the patient was septic. She has a enterococcus faecalis in the urine and anaerobic gram- negative bacillus and the blood and the patient remains on same antibiotic coverage including a combination of Zosyn and Diflucan. Furthermore, the chest x-ray from today shows development of patchy breath and pulmonary infiltrates. There is a right upper lobe infiltration left lower lobe infiltration which raises the concern for a superimposed pneumonia was at its ventilator as. Rule out healthcare associated or aspiration type. The patient has a congested cough. Unable to bring up much sputum. At this point in time, she is on oxygen at 2 L/m nasal cannula and his saturations around 95%. She is not spiking a fever and her white cell count is down to 13. Also, she still complaining of pain in lower extremity and she has decent pulses in lower extremities bilaterally. No altered mentation. No other significant events overnight. On 12/08/2017 patient is being seen for a follow-up. The patient awake and alert. NG tube is in place. Output has been around 300 mL for the past 24 hours and the patient is having on and off nausea. Remains nothing by mouth on TPN. The colostomy still nonfunctional and there is no output within the colostomy bag. On examination the patient has a normal abdominal wound and has some sluggish bowel sounds. She is receiving TPN for nutritional support. I give her a dose of Lasix and she is in a negative fluid balance as the patient is producing adequate amount of urine output and the net fluid balance is -7.3 L. She is producing more than 100 mL an hour of urine output and her potassium was dropped and is being replaced for now. Note that the blood culture came back positive for Bacteroides fragilis and the patient has Enterococcus faecalis in the urine and the patient remains on IV Zosyn and Diflucan. The chest x-ray showed patchy breath and pulmonary infiltrates yet despite this the patient is not having any significant rest or distress. No significant cough or sputum production. No fever. There is some improvement today's chest exam hoping that this may turn to be in acute lung injury or even fluid overload. The findings however looked to be more patchy specially in the right upper lobe. We'll going to continue to monitor this abnormality. No significant electrolyte disturbance and the hypokalemia. The white cell count is at 18.0. The patient has a IJ triple lumen catheter that will be ultimately switched to a PICC line for IV access and TPN administration. On today's evaluation of a 12/09/2017 the patient is resting comfortably in bed. She was able to sit up on a chair for brief period of time yesterday. NG tube is in place. Output is minimal. Colostomy site is still nonfunctional and there is no output from the colostomy bag. Abdomen is nondistended. Surgical wound site is the same. The patient is still receiving TPN for nutritional support. The plan is to remove the triple-lumen catheter and inserted a PICC line catheter today. The patient remains on Zosyn and Diflucan. The patient is having on and off nausea. No emesis has been noted. No fever or chills. No other significant events overnight. The chest x-ray from today shows improvement in the previously described pulmonary infiltrates. There is improvement in aeration and improvement in the volume status. There is some persistent lower lobe atelectatic changes and interstitial edema bilaterally. General surgeries on the case. No other significant events overnight. Mental status appropriate at this point in time. The net fluid balance is negative for yesterday and today. On 12/10/2017 patient is essentially the same. Unfortunately were not seeing any bowel activity yet. Colostomy site is viable yet there is no output noted. There are bowel sounds are regular was added yesterday. NG tube producing approximately 100 ML's every 8 hours. The patient is afebrile. She is receiving TPN for nutritional support. Surgical wound site is dry clean and intact. Chest x-ray findings are improving and the patient has some limited residual atelectasis/effusion the left lung base. She has a PICC line. He is on IV Zosyn and Diflucan. No altered mentation. No shortness of breath. She is resting comfortably in bed. She is weak. She was able to sit up on a chair yesterday. A flat film of the abdomen was done and showed an overall nonobstructive bowel gas pattern and there was no evidence of ileus or bowel obstruction. On 12/11/2017, the patient is still having limited amount of activity in her colostomy bag. Some minimal amount of liquidy material accumulating. NG tube is in place. Surgical wound site is clean. No active respiratory difficulties or issues for now. Hemodynamically stable. Afebrile. Receiving TPN. Electrolytes are all within normal limits. She is on a combination of Zosyn and Diflucan. Using incentive spirometer. Sitting up on a chair. Her overall weakness is gradually improving. The active issue for now remains the slow recovery of the bowel activity post surgery. Objective - Vital Signs Vital signs: Vital Signs Temp 97.6 F 12/11/17 08:00 Pulse 62 12/11/17 11:00 Resp 12 12/11/17 11:00 BP 121/59 12/11/17 11:00 Pulse Ox 99 12/11/17 11:00 Intake & Output 12/10/17 12/11/17 12/11/17 18:59 06:59 18:59 Intake Total 2263.0 1787.5 635 Output Total 1345 1975 800 Balance 918.0 -187.5 -165 Weight 91.6 kg 91.1 kg Intake: IV 1000.0 1577.5 335 Amino Acid 5%-D15w+Lytes* 770 910 280 E* 1,000 ml @ 70 mls/hr IV .BY DURATION [facility] Rx#: [id number] Magnesium Sulfate-D5w Pmx 100 1 gm In Dextrose/Water 1 100ml.bag @ 100 mls/hr IVPB Q1H [facility] Rx#: [id number] Piperacillin-Tazobactam 3 75.0 62.5 50 .375 gm In Dextrose/Water 1 50ml.bag @ 12.5 mls/hr IVPB Q8HR [facility] Rx#: [id number] Potassium Chloride 10 meq 100 100 In Water For Injection 1 100ml.bag @ 100 mls/hr IVPB Q1H [facility] Rx#: [id number] Sodium Chloride 0.45% 1, 55 55 5 000 ml @ 5 mls/hr IV . Q24H [facility] Rx#:[id number] Vancomycin 1,500 mg In 250 Sodium Chloride 0.9% 250 ml @ 125 mls/hr IVPB Q24H [facility] Rx#:[id number] metroNIDAZOLE-NS PMX 500 100 mg In Saline 1 100ml.bag @ 100 mls/hr IVPB Q6HR [facility] Rx#:[id number] Intake, IV Titration 1263 21 300 Amount Amino Acid 5%-D15w+Lytes* 1000 E* 1,000 ml @ 70 mls/hr IV .BY DURATION [facility] Rx#: [id number] Fat Emulsion 20% 250 ml 63 21 In Empty Bag 1 bag @ 21 mls/hr IV DAILY@1600 [facility] Rx#:[id number] Magnesium Sulfate-D5w Pmx 100 1 gm In Dextrose/Water 1 100ml.bag @ 100 mls/hr IVPB Q1H [facility] Rx#: [id number] Magnesium Sulfate-D5w Pmx 100 1 gm In Dextrose/Water 1 100ml.bag @ 100 mls/hr IVPB Q1H [facility] Rx#: [id number] Potassium Chloride 10 meq 100 In Water For Injection 1 100ml.bag @ 100 mls/hr IVPB Q1H [facility] Rx#: [id number] metroNIDAZOLE-NS PMX 500 100 100 mg In Saline 1 100ml.bag @ 100 mls/hr IVPB Q8HR [facility] Rx#:[id number] Lipid 189 Amino Acid 5%-D15w+Lytes* 189 E* 1,000 ml @ 70 mls/hr IV .BY DURATION [facility] Rx#: [id number] Output: Urine 1275 1975 800 Stool 70 Other: Voiding Method Indwelling Catheter Indwelling Catheter # Voids 50 ABP, PAP, CO, CI - Last Documented Arterial Blood Pressure 131/70 - Exam No acute distress, awake and alert, nasal O2 in place. The patient has an NG tube in place and output has been only minimally without any significant output from the NG tube. HEENT examination is grossly unremarkable. Mucous membranes are moist. Neck supple. Full range of motion. No adenopathy thyromegaly or neck vein distention. Cardiovascular examination reveals regular rhythm rate. S1-S2 normal. No S3 or S4. No discernible murmur noted. Lungs reveal bilaterally equal breath sounds. Some bilateral coarse rhonchi are noted. No wheezes or crackles. Breath sounds equal bilaterally. Breath sounds are improved. Abdomen soft without bowel sounds. No masses. No tenderness. Fresh colostomy is noted. The patient has a colostomy site is viable. No output is in the colostomy bag. Bowel sounds are absent at this point. No abdominal distention. The patient has sumaya with retention sutures holding the abdominal wound together. Extremities are intact. Examination of the extremities revealed easily palpable radial, femoral and pedal pulses. There was no cyanosis, clubbing or edema. SkinExamination of the skin revealed no evidence of significant rashes, suspicious appearing nevi or other concerning lesions. The wound description as above Neurologic examination is difficult to assess but she moves all 4 extremities well. - Labs CBC & Chem 7: 12/11/17 04:45 12/11/17 04:45 Labs: Abnormal Lab Results - Last 24 Hours (Table) 12/10/17 12/11/17 12/11/17 Range/Units 12:07 04:45 04:45 WBC 14.0 H (3.8-10.6) k/uL RBC 3.45 L (3.80-5.40) m/uL Hgb 10.4 L (11.4-16.0) gm/dL Hct 32.4 L (34.0-46.0) % Sodium 133 L (137-145) mmol/L BUN 19 H (7-17) mg/dL POC Glucose (mg/dL) 112 H (75-99) mg/dL Calcium 8.0 L (8.4-10.2) mg/dL 12/11/17 12/11/17 Range/Units 05:59 06:01 WBC (3.8-10.6) k/uL RBC (3.80-5.40) m/uL Hgb (11.4-16.0) gm/dL Hct (34.0-46.0) % Sodium (137-145) mmol/L BUN (7-17) mg/dL POC Glucose (mg/dL) 69 L 104 H (75-99) mg/dL Calcium (8.4-10.2) mg/dL Microbiology - Last 24 Hours (Table) 12/06/17 13:52 Blood Culture - Preliminary Blood No Growth after 96 hours Assessment and Plan Plan: Assessment 1 postop day #9 exp laparotomy, colectomy, lysis of adhesions, diverticular colostomy and ventral hernia repair. Patient remains nothing by mouth. NG tube is in place. Colostomy is viable. Minimal amount of output is noted in the NG tube is in place. The patient on TPN for nutritional support. 2 septic shock , recovered. The patient was septic from an anaerobic infection related to ischemic colitis and Bacteroides fragilis was cultured and the blood. 3 enterococcus faecalis in the urine, UTI 4 nonfunctioning colostomy post colectomy and the patient has NG tube in place and the patient is still on TPN for nutritional support. Flat film of the abdomen showed no evidence of any bowel obstruction or ileus and the patient is currently on TPN. Patient is also on Reglan. Surgical wound site is dry clean and intact. Overall condition is unchanged compared to yesterday and the patient is still nothing by mouth, on TPN with no active material collecting in the colostomy bag. Surgeries on the case. 5 ischemic right lower extremity/foot, improving and the patient has regained pulses in the right lower extremity and there is no evidence of any gangrenous transformation 6 lactic acidosis, recovered 7 TPN for nutritional support 8 hypertension 9 hypothyroidism 10 acute kidney injury, recovered and the renal function is normalized 11 leukocytosis, improving 12 patchy bilateral pulmonary infiltrates, on today's chest x-ray there is improvement in the volume status and improvement Plan Continue TPN. Continue same antibiotic coverage. Add Reglan. Incentive spirometer. Increased mobility as tolerated and sit up the patient on a chair. We'll continue to follow. The patient can be chest further surgical floor if agreeable by surgery.
[2017-12-11 13:12] LABS: Glucose,Whole Blood 104 mg/dL (75-99)
--- NOTE | 2017-12-11 14:31 | P.PN ---
Subjective Progress Note Date: 12/11/17 The patient is status post laparotomy with ostomy creation. "I have dry throat. " She is being transferred to the floor. Her pain is well-controlled. Objective - Vital Signs Vital signs: Vital Signs Temp 97.6 F 12/11/17 08:00 Pulse 68 12/11/17 14:00 Resp 15 12/11/17 14:00 BP 146/67 12/11/17 14:00 Pulse Ox 97 12/11/17 14:00 Intake & Output 12/10/17 12/11/17 12/11/17 18:59 06:59 18:59 Intake Total 2263.0 1787.5 860 Output Total 1345 1975 1160 Balance 918.0 -187.5 -300 Weight 91.6 kg 91.1 kg 91.1 kg Intake: IV 1000.0 1577.5 560 Amino Acid 5%-D15w+Lytes* 770 910 490 E* 1,000 ml @ 70 mls/hr IV .BY DURATION [facility] Rx#: [id number] Magnesium Sulfate-D5w Pmx 100 1 gm In Dextrose/Water 1 100ml.bag @ 100 mls/hr IVPB Q1H [facility] Rx#: [id number] Piperacillin-Tazobactam 3 75.0 62.5 50 .375 gm In Dextrose/Water 1 50ml.bag @ 12.5 mls/hr IVPB Q8HR [facility] Rx#: [id number] Potassium Chloride 10 meq 100 100 In Water For Injection 1 100ml.bag @ 100 mls/hr IVPB Q1H [facility] Rx#: [id number] Sodium Chloride 0.45% 1, 55 55 20 000 ml @ 5 mls/hr IV . Q24H [facility] Rx#:[id number] Vancomycin 1,500 mg In 250 Sodium Chloride 0.9% 250 ml @ 125 mls/hr IVPB Q24H [facility] Rx#:[id number] metroNIDAZOLE-NS PMX 500 100 mg In Saline 1 100ml.bag @ 100 mls/hr IVPB Q6HR [facility] Rx#:[id number] Intake, IV Titration 1263 21 300 Amount Amino Acid 5%-D15w+Lytes* 1000 E* 1,000 ml @ 70 mls/hr IV .BY DURATION [facility] Rx#: [id number] Fat Emulsion 20% 250 ml 63 21 In Empty Bag 1 bag @ 21 mls/hr IV DAILY@1600 [facility] Rx#:[id number] Magnesium Sulfate-D5w Pmx 100 1 gm In Dextrose/Water 1 100ml.bag @ 100 mls/hr IVPB Q1H [facility] Rx#: [id number] Magnesium Sulfate-D5w Pmx 100 1 gm In Dextrose/Water 1 100ml.bag @ 100 mls/hr IVPB Q1H [facility] Rx#: [id number] Potassium Chloride 10 meq 100 In Water For Injection 1 100ml.bag @ 100 mls/hr IVPB Q1H [facility] Rx#: [id number] metroNIDAZOLE-NS PMX 500 100 100 mg In Saline 1 100ml.bag @ 100 mls/hr IVPB Q8HR [facility] Rx#:[id number] Lipid 189 Amino Acid 5%-D15w+Lytes* 189 E* 1,000 ml @ 70 mls/hr IV .BY DURATION [facility] Rx#: [id number] Output: Urine 1275 1975 1150 Stool 70 10 Other: Voiding Method Indwelling Catheter Indwelling Catheter Indwelling Catheter # Voids 50 ABP, PAP, CO, CI - Last Documented Arterial Blood Pressure 131/70 - Exam GENERAL: Well developed and in no acute distress. Pleasant. HEENT: No sclera icterus. Extraocular movements grossly intact. Moist buccal mucosa. Head is atraumatic, normocephalic. Hears conversational speech. No nasal drainage. NECK: Supple without lymphadenopathy. CHEST: Non-labored respirations and equal bilateral excursions. CARDIOVASCULAR: Regular rate and rhythm. Palpable 2+ radial pulses. ABDOMEN: Soft, ostomy patent and with minimal flatus. No stool identified. Dressing clean dry and intact. MUSCULOSKELETAL: No clubbing, cyanosis or edema. NEUROLOGIC: No focal or lateralizing signs. PSYCH: Appropriate affect. Alert and oriented to person, place and time. SKIN: Good skin turgor. Well perfused. - Labs CBC & Chem 7: 12/11/17 04:45 12/11/17 04:45 Labs: Abnormal Lab Results - Last 24 Hours (Table) 12/11/17 12/11/17 12/11/17 Range/Units 04:45 04:45 05:59 WBC 14.0 H (3.8-10.6) k/uL RBC 3.45 L (3.80-5.40) m/uL Hgb 10.4 L (11.4-16.0) gm/dL Hct 32.4 L (34.0-46.0) % Sodium 133 L (137-145) mmol/L BUN 19 H (7-17) mg/dL POC Glucose (mg/dL) 69 L (75-99) mg/dL Calcium 8.0 L (8.4-10.2) mg/dL 12/11/17 12/11/17 Range/Units 06:01 12:52 WBC (3.8-10.6) k/uL RBC (3.80-5.40) m/uL Hgb (11.4-16.0) gm/dL Hct (34.0-46.0) % Sodium (137-145) mmol/L BUN (7-17) mg/dL POC Glucose (mg/dL) 104 H 104 H (75-99) mg/dL Calcium (8.4-10.2) mg/dL Microbiology - Last 24 Hours (Table) 12/06/17 13:52 Blood Culture - Preliminary Blood No Growth after 96 hours Assessment and Plan (1) Colostomy status Current Visit: Yes Status: Acute Code(s): Z93.3 - COLOSTOMY STATUS SNOMED Code(s): 031337581 (2) Ischemic colitis Current Visit: Yes Status: Acute Code(s): K55.9 - VASCULAR DISORDER OF INTESTINE, UNSPECIFIED SNOMED Code(s): 29752877 Plan: 1. Patient is clinically stable. May be transferred to the floor. 2. Continue medical management. 3. Continue NG tube pending function of her ostomy.
--- NOTE | 2017-12-11 14:36 | P.PN ---
Subjective Progress Note Date: 12/11/17 12/11/2017, the patient is still having limited amount of activity in her colostomy bag. Some minimal amount of liquidy material accumulating. NG tube is in place. Surgical wound site is clean. No active respiratory difficulties or issues for now. Hemodynamically stable. Afebrile. Receiving TPN. Electrolytes are all within normal limits. She is on a combination of Zosyn and Diflucan. Using incentive spirometer. Sitting up on a chair. Her overall weakness is gradually improving. The active issue for now remains the slow recovery of the bowel activity post surgery. Objective - Vital Signs Vital signs: Vital Signs Temp 97.6 F 12/11/17 08:00 Pulse 68 12/11/17 14:00 Resp 15 12/11/17 14:00 BP 146/67 12/11/17 14:00 Pulse Ox 97 12/11/17 14:00 Intake & Output 12/10/17 12/11/17 12/11/17 18:59 06:59 18:59 Intake Total 2263.0 1787.5 860 Output Total 1345 1975 1160 Balance 918.0 -187.5 -300 Weight 91.6 kg 91.1 kg 91.1 kg Intake: IV 1000.0 1577.5 560 Amino Acid 5%-D15w+Lytes* 770 910 490 E* 1,000 ml @ 70 mls/hr IV .BY DURATION [facility] Rx#: [id number] Magnesium Sulfate-D5w Pmx 100 1 gm In Dextrose/Water 1 100ml.bag @ 100 mls/hr IVPB Q1H [facility] Rx#: [id number] Piperacillin-Tazobactam 3 75.0 62.5 50 .375 gm In Dextrose/Water 1 50ml.bag @ 12.5 mls/hr IVPB Q8HR [facility] Rx#: [id number] Potassium Chloride 10 meq 100 100 In Water For Injection 1 100ml.bag @ 100 mls/hr IVPB Q1H [facility] Rx#: [id number] Sodium Chloride 0.45% 1, 55 55 20 000 ml @ 5 mls/hr IV . Q24H [facility] Rx#:[id number] Vancomycin 1,500 mg In 250 Sodium Chloride 0.9% 250 ml @ 125 mls/hr IVPB Q24H [facility] Rx#:[id number] metroNIDAZOLE-NS PMX 500 100 mg In Saline 1 100ml.bag @ 100 mls/hr IVPB Q6HR [facility] Rx#:[id number] Intake, IV Titration 1263 21 300 Amount Amino Acid 5%-D15w+Lytes* 1000 E* 1,000 ml @ 70 mls/hr IV .BY DURATION [facility] Rx#: [id number] Fat Emulsion 20% 250 ml 63 21 In Empty Bag 1 bag @ 21 mls/hr IV DAILY@1600 [facility] Rx#:[id number] Magnesium Sulfate-D5w Pmx 100 1 gm In Dextrose/Water 1 100ml.bag @ 100 mls/hr IVPB Q1H [facility] Rx#: [id number] Magnesium Sulfate-D5w Pmx 100 1 gm In Dextrose/Water 1 100ml.bag @ 100 mls/hr IVPB Q1H [facility] Rx#: [id number] Potassium Chloride 10 meq 100 In Water For Injection 1 100ml.bag @ 100 mls/hr IVPB Q1H [facility] Rx#: [id number] metroNIDAZOLE-NS PMX 500 100 100 mg In Saline 1 100ml.bag @ 100 mls/hr IVPB Q8HR [facility] Rx#:[id number] Lipid 189 Amino Acid 5%-D15w+Lytes* 189 E* 1,000 ml @ 70 mls/hr IV .BY DURATION [facility] Rx#: [id number] Output: Urine 1275 1975 1150 Stool 70 10 Other: Voiding Method Indwelling Catheter Indwelling Catheter Indwelling Catheter # Voids 50 ABP, PAP, CO, CI - Last Documented Arterial Blood Pressure 131/70 - Exam No acute distress, awake and alert, nasal O2 in place. The patient has an NG tube in place and output has been only minimally without any significant output from the NG tube. HEENT examination is grossly unremarkable. Mucous membranes are moist. Neck supple. Full range of motion. No adenopathy thyromegaly or neck vein distention. Cardiovascular examination reveals regular rhythm rate. S1-S2 normal. No S3 or S4. No discernible murmur noted. Lungs reveal bilaterally equal breath sounds. Some bilateral coarse rhonchi are noted. No wheezes or crackles. Breath sounds equal bilaterally. Breath sounds are improved. Abdomen soft without bowel sounds. No masses. No tenderness. Fresh colostomy is noted. The patient has a colostomy site is viable. No output is in the colostomy bag. Bowel sounds are absent at this point. No abdominal distention. The patient has sumaya with retention sutures holding the abdominal wound together. Extremities are intact. Examination of the extremities revealed easily palpable radial, femoral and pedal pulses. There was no cyanosis, clubbing or edema. SkinExamination of the skin revealed no evidence of significant rashes, suspicious appearing nevi or other concerning lesions. The wound description as above Neurologic examination is difficult to assess but she moves all 4 extremities well. - Labs CBC & Chem 7: 12/11/17 04:45 12/11/17 04:45 Labs: Abnormal Lab Results - Last 24 Hours (Table) 12/11/17 12/11/17 12/11/17 Range/Units 04:45 04:45 05:59 WBC 14.0 H (3.8-10.6) k/uL RBC 3.45 L (3.80-5.40) m/uL Hgb 10.4 L (11.4-16.0) gm/dL Hct 32.4 L (34.0-46.0) % Sodium 133 L (137-145) mmol/L BUN 19 H (7-17) mg/dL POC Glucose (mg/dL) 69 L (75-99) mg/dL Calcium 8.0 L (8.4-10.2) mg/dL 12/11/17 12/11/17 Range/Units 06:01 12:52 WBC (3.8-10.6) k/uL RBC (3.80-5.40) m/uL Hgb (11.4-16.0) gm/dL Hct (34.0-46.0) % Sodium (137-145) mmol/L BUN (7-17) mg/dL POC Glucose (mg/dL) 104 H 104 H (75-99) mg/dL Calcium (8.4-10.2) mg/dL Microbiology - Last 24 Hours (Table) 12/06/17 13:52 Blood Culture - Preliminary Blood No Growth after 96 hours Assessment and Plan Plan: -Septic shock shock resolved secondary to colitis. Patient is on Zosyn and metronidazole patient has enterococcus in the urine significant of which is unknown although Zosyn, covers that organism as well. 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 -Toxic encephalopathy from opiates which resolved. -Fluid overload and pulmonary edema secondary to IV fluids she received which improved with Lasix. -Nor epinephrine induced vasoconstriction and bluish discoloration of the toes Time with Patient: Greater than 30
[2017-12-11] MEDS: FAT EMULSION 20% 250 ML in EMPTY BAG 1 BAG IV SCH (16:01)
[2017-12-11] MEDS: ONDANSETRON 4 MG/2 ML VIAL IVP PRN (16:54)
[2017-12-11 18:36] LABS: Glucose,Whole Blood 84 mg/dL (75-99)
[2017-12-11] MEDS: FLUCONAZOLE IN NACL,ISO-OSM 200 MG in SALINE 1 100ML.BAG IVPB SCH (18:52)
[2017-12-12] MEDS: HYDROmorphone 1 MG/ML 1 ML SYRINGE IVP PRN ×4 (00:04→21:22)
[2017-12-12] MEDS: METOCLOPRAMIDE 5 MG/ML 2 ML VIAL IVP SCH ×5 (00:04→23:56)
[2017-12-12] MEDS: metroNIDAZOLE-NS PMX 500 MG in SALINE 1 100ML.BAG IVPB SCH ×4 (00:15→23:55)
[2017-12-12] MEDS: PIPERACILLIN-TAZOBACTAM 3.375 GM in DEXTROSE/WATER 1 50ML.BAG IVPB SCH ×4 (00:17→23:55)
[2017-12-12] MEDS: SODIUM CHLORIDE 0.45% 1,000 ML IV SCH ×2 (00:18→23:30)
[2017-12-12 00:22] LABS: Glucose,Whole Blood 109 mg/dL (75-99)
[2017-12-12] MEDS: INSULIN ASPART 100 UNIT/ML 1 ML 10 ML VIAL SQ SCH ×4 (00:22→17:51)
[2017-12-12] MEDS ORDERED: VANCOMYCIN TROUGH DUE 1 EACH MISC MISCELLANE ONE (05:00)
[2017-12-12 05:30] LABS: HCT 31.1 % (34.0-46.0); HGB 9.8 gm/dL (11.4-16.0); MCH 29.3 pg (25.0-35.0); MCHC 31.7 g/dL (31.0-37.0); MCV 92.5 fL (80.0-100.0); Mean Platelet Volume 7.9; Platelet Count 317 k/uL (150-450); RBC 3.36 m/uL (3.80-5.40); RDW 14.3 % (11.5-15.5); WBC 11.9 k/uL (3.8-10.6)
[2017-12-12 05:40] LABS: Calcium 8.3 mg/dL (8.4-10.2); Magnesium 1.9 mg/dL (1.6-2.3); Phosphorus 4.1 mg/dL (2.5-4.5); Potassium 3.9 mmol/L (3.5-5.1)
[2017-12-12] MEDS: VANCOMYCIN 1,500 MG in SODIUM CHLORIDE 0.9% 250 ML IVPB SCH ×2 (05:59→21:23)
[2017-12-12 06:17] LABS: Glucose,Whole Blood 108 mg/dL (75-99)
[2017-12-12] MEDS: IPRATROPIUM-ALBUTEROL 3 ML NEB INHALATION SCH ×4 (07:24→19:36)
--- NOTE | 2017-12-12 07:28 | XR ---
EXAMINATION TYPE: XR chest 1V portable DATE OF EXAM: 12/12/2017 HISTORY: NGT in place. REFERENCE: Previous study dated 12/11/2017. FINDINGS: A right shoulder hemiarthroplasties in place. There is a bipolar pacemaker in place on the left. There is increased opacity of the left hemithorax. This is likely a combination of pleural fluid and airspace disease. Lung volumes are prominent. Heart size upper limits of normal. There is an NG tube in place. Its tip is within the stomach. IMPRESSION: CONTINUING LEFT BASILAR AIRSPACE DISEASE AND A CONCOMITANT EFFUSION.
[2017-12-12] MEDS: PANTOPRAZOLE 40 MG/10 ML VIAL IV SCH (08:12)
[2017-12-12] MEDS: HEPARIN SODIUM,PORCINE 5,000 UNIT/ML 1 ML VIAL SQ SCH ×2 (08:12→21:23)
[2017-12-12] MEDS: LEVOTHYROXINE IVP 100 MCG/5 ML VIAL IV SCH (08:31)
[2017-12-12] MEDS: POTASSIUM CHLORIDE 10 MEQ in WATER FOR INJECTION 1 100ML.BAG IVPB SCH ×2 (11:11→13:33)
[2017-12-12] MEDS: MAGNESIUM SULFATE-D5W PMX 1 GM in DEXTROSE/WATER 1 100ML.BAG IVPB SCH ×2 (11:11→13:33)
[2017-12-12 12:02] LABS: Glucose,Whole Blood 123 mg/dL (75-99)
--- NOTE | 2017-12-12 12:09 | P.PN ---
Subjective Progress Note Date: 12/12/17 On today's evaluation of 12/06/2017, the patient is awake and alert. NG tube is in place. The patient has been nothing by mouth for the past 5 days as the patient underwent a extensive laparotomy, transverse colectomy, diverticulitis to me, repair of a ventral hernia 2. The patient came in with septic condition related to an underlying enterococcal urine checked infection subsequently she developed abdominal pain and presentation was typical of ischemic colitis. The patient underwent expiratory laparotomy in that regard. She was severely hemodynamics unstable and the patient required high doses of pressors and IV fluids and ultimately she improved to the point where she is currently off pressors. She developed some ischemia in the right foot and she is complaining of pain in the right lower extremity. This ischemia related to severe hypotension and use of high dose of pressors. At this point in time the skin is mottled and there is some areas of ecchymosis nevertheless the patient has adequate pulses in lower extremities bilaterally and vascular surgery evaluated the limbs. No signs of any gangrenous changes at this point in time. The patient currently extubated. The patient is currently on oxygen by nasal cannula. No respiratory distress. No cough or sputum production. No abdominal pain. The colostomy site is still nonfunctional. The tissue itself is viable and bowel sounds are absent at this point in time. TPN is being considered by general surgery. Antibiotic coverage includes IV Diflucan and IV Zosyn. The most recent blood cultures showing anaerobic growth in the blood probably of a intra-abdominal source and the urine cultures showing enterococcus faecalis, penicillin sensitive. The patient remains on IV Zosyn. The sputum is showing Fatoumata which is a colonizer. The chest x-ray from today shows a upper lobe infiltrate and left retrocardiac infiltration. No other abnormalities otherwise noted. On today's evaluation of a 2017, the patient is still awake and alert. She remains nothing by mouth. No bowel sounds. No bowel activity. Colostomy site is viable. There is no output within the colostomy bag. Bowel sounds are absent. NG tube is in place. Output from the NG tube has been to 50 mL for yesterday. The patient's net fluid balance is +6 26 mL over the past 24 hours. TPN was started yesterday for nutritional support. Noted the patient was septic. She has a enterococcus faecalis in the urine and anaerobic gram- negative bacillus and the blood and the patient remains on same antibiotic coverage including a combination of Zosyn and Diflucan. Furthermore, the chest x-ray from today shows development of patchy breath and pulmonary infiltrates. There is a right upper lobe infiltration left lower lobe infiltration which raises the concern for a superimposed pneumonia was at its ventilator as. Rule out healthcare associated or aspiration type. The patient has a congested cough. Unable to bring up much sputum. At this point in time, she is on oxygen at 2 L/m nasal cannula and his saturations around 95%. She is not spiking a fever and her white cell count is down to 13. Also, she still complaining of pain in lower extremity and she has decent pulses in lower extremities bilaterally. No altered mentation. No other significant events overnight. On 12/08/2017 patient is being seen for a follow-up. The patient awake and alert. NG tube is in place. Output has been around 300 mL for the past 24 hours and the patient is having on and off nausea. Remains nothing by mouth on TPN. The colostomy still nonfunctional and there is no output within the colostomy bag. On examination the patient has a normal abdominal wound and has some sluggish bowel sounds. She is receiving TPN for nutritional support. I give her a dose of Lasix and she is in a negative fluid balance as the patient is producing adequate amount of urine output and the net fluid balance is -7.3 L. She is producing more than 100 mL an hour of urine output and her potassium was dropped and is being replaced for now. Note that the blood culture came back positive for Bacteroides fragilis and the patient has Enterococcus faecalis in the urine and the patient remains on IV Zosyn and Diflucan. The chest x-ray showed patchy breath and pulmonary infiltrates yet despite this the patient is not having any significant rest or distress. No significant cough or sputum production. No fever. There is some improvement today's chest exam hoping that this may turn to be in acute lung injury or even fluid overload. The findings however looked to be more patchy specially in the right upper lobe. We'll going to continue to monitor this abnormality. No significant electrolyte disturbance and the hypokalemia. The white cell count is at 18.0. The patient has a IJ triple lumen catheter that will be ultimately switched to a PICC line for IV access and TPN administration. On today's evaluation of a 12/09/2017 the patient is resting comfortably in bed. She was able to sit up on a chair for brief period of time yesterday. NG tube is in place. Output is minimal. Colostomy site is still nonfunctional and there is no output from the colostomy bag. Abdomen is nondistended. Surgical wound site is the same. The patient is still receiving TPN for nutritional support. The plan is to remove the triple-lumen catheter and inserted a PICC line catheter today. The patient remains on Zosyn and Diflucan. The patient is having on and off nausea. No emesis has been noted. No fever or chills. No other significant events overnight. The chest x-ray from today shows improvement in the previously described pulmonary infiltrates. There is improvement in aeration and improvement in the volume status. There is some persistent lower lobe atelectatic changes and interstitial edema bilaterally. General surgeries on the case. No other significant events overnight. Mental status appropriate at this point in time. The net fluid balance is negative for yesterday and today. On 12/10/2017 patient is essentially the same. Unfortunately were not seeing any bowel activity yet. Colostomy site is viable yet there is no output noted. There are bowel sounds are regular was added yesterday. NG tube producing approximately 100 ML's every 8 hours. The patient is afebrile. She is receiving TPN for nutritional support. Surgical wound site is dry clean and intact. Chest x-ray findings are improving and the patient has some limited residual atelectasis/effusion the left lung base. She has a PICC line. He is on IV Zosyn and Diflucan. No altered mentation. No shortness of breath. She is resting comfortably in bed. She is weak. She was able to sit up on a chair yesterday. A flat film of the abdomen was done and showed an overall nonobstructive bowel gas pattern and there was no evidence of ileus or bowel obstruction. On 12/11/2017, the patient is still having limited amount of activity in her colostomy bag. Some minimal amount of liquidy material accumulating. NG tube is in place. Surgical wound site is clean. No active respiratory difficulties or issues for now. Hemodynamically stable. Afebrile. Receiving TPN. Electrolytes are all within normal limits. She is on a combination of Zosyn and Diflucan. Using incentive spirometer. Sitting up on a chair. Her overall weakness is gradually improving. The active issue for now remains the slow recovery of the bowel activity post surgery. On 12/12/2017, the patient is on a surgical floor. Unfortunately minimal amount of output is seen in the colostomy bag. Still on TPN. The abdominal wound is clean. No fever or chills. No other respiratory difficulties. She remains on Zosyn and Diflucan. NG tube is in place. Objective - Vital Signs Vital signs: Vital Signs Temp 98.2 F 12/12/17 07:00 Pulse 70 12/12/17 07:38 Resp 16 12/12/17 08:00 BP 140/74 12/12/17 07:00 Pulse Ox 96 12/12/17 07:00 Intake & Output 12/11/17 12/12/17 12/12/17 18:59 06:59 18:59 Intake Total 1372 934 Output Total 1560 1515 1300 Balance -188 -581 -1300 Weight 91.1 kg 82.5 kg Intake: IV 872 834 Amino Acid 5%-D15w+Lytes* 700 700 E* 1,000 ml @ 70 mls/hr IV .BY DURATION [facility] Rx#: [id number] Fat Emulsion 20% 250 ml 42 84 In Empty Bag 1 bag @ 21 mls/hr IV DAILY@1600 [facility] Rx#:[id number] Piperacillin-Tazobactam 3 100 50 .375 gm In Dextrose/Water 1 50ml.bag @ 12.5 mls/hr IVPB Q8HR [facility] Rx#: [id number] Sodium Chloride 0.45% 1, 30 000 ml @ 5 mls/hr IV . Q24H [facility] Rx#:[id number] Intake, IV Titration 500 100 Amount Fluconazole in NaCl,Iso- 100 Osm 200 mg In Saline 1 100ml.bag @ 100 mls/hr IVPB DAILY@1800 [facility] Rx#: [id number] Magnesium Sulfate-D5w Pmx 100 1 gm In Dextrose/Water 1 100ml.bag @ 100 mls/hr IVPB Q1H [facility] Rx#: [id number] Potassium Chloride 10 meq 100 In Water For Injection 1 100ml.bag @ 100 mls/hr IVPB Q1H [facility] Rx#: [id number] metroNIDAZOLE-NS PMX 500 200 100 mg In Saline 1 100ml.bag @ 100 mls/hr IVPB Q8HR [facility] Rx#:[id number] Output: Gastric Drainage 110 Urine 1550 1405 1300 Stool 10 Other: Voiding Method Indwelling Catheter Indwelling Catheter Indwelling Catheter # Voids 1 # Bowel Movements 0 # Emeses 0 ABP, PAP, CO, CI - Last Documented Arterial Blood Pressure 131/70 - Exam No acute distress, awake and alert, nasal O2 in place. The patient has an NG tube in place and output has been only minimally without any significant output from the NG tube. HEENT examination is grossly unremarkable. Mucous membranes are moist. Neck supple. Full range of motion. No adenopathy thyromegaly or neck vein distention. Cardiovascular examination reveals regular rhythm rate. S1-S2 normal. No S3 or S4. No discernible murmur noted. Lungs reveal bilaterally equal breath sounds. Some bilateral coarse rhonchi are noted. No wheezes or crackles. Breath sounds equal bilaterally. Breath sounds are improved. Abdomen soft without bowel sounds. No masses. No tenderness. Fresh colostomy is noted. The patient has a colostomy site is viable. No output is in the colostomy bag. Bowel sounds are absent at this point. No abdominal distention. The patient has sumaya with retention sutures holding the abdominal wound together. Extremities are intact. Examination of the extremities revealed easily palpable radial, femoral and pedal pulses. There was no cyanosis, clubbing or edema. SkinExamination of the skin revealed no evidence of significant rashes, suspicious appearing nevi or other concerning lesions. The wound description as above Neurologic examination is difficult to assess but she moves all 4 extremities well. - Labs CBC & Chem 7: 12/12/17 05:09 12/12/17 05:09 Labs: Abnormal Lab Results - Last 24 Hours (Table) 12/11/17 12/12/17 12/12/17 Range/Units 12:52 00:20 05:09 WBC (3.8-10.6) k/uL RBC (3.80-5.40) m/uL Hgb (11.4-16.0) gm/dL Hct (34.0-46.0) % Sodium 132 L (137-145) mmol/L BUN 18 H (7-17) mg/dL Glucose 110 H (74-99) mg/dL POC Glucose (mg/dL) 104 H 109 H (75-99) mg/dL Calcium 8.3 L (8.4-10.2) mg/dL 12/12/17 12/12/17 12/12/17 Range/Units 05:09 06:16 12:00 WBC 11.9 H (3.8-10.6) k/uL RBC 3.36 L (3.80-5.40) m/uL Hgb 9.8 L (11.4-16.0) gm/dL Hct 31.1 L (34.0-46.0) % Sodium (137-145) mmol/L BUN (7-17) mg/dL Glucose (74-99) mg/dL POC Glucose (mg/dL) 108 H 123 H (75-99) mg/dL Calcium (8.4-10.2) mg/dL Microbiology - Last 24 Hours (Table) 12/06/17 13:52 Blood Culture - Preliminary Blood No Growth after 120 hours Assessment and Plan Plan: Assessment 1 postop day #10 exp laparotomy, colectomy, lysis of adhesions, diverticular colostomy and ventral hernia repair. Patient remains nothing by mouth. NG tube is in place. Colostomy is viable. Minimal amount of output is noted in the NG tube is in place. The patient on TPN for nutritional support. 2 septic shock , recovered. The patient was septic from an anaerobic infection related to ischemic colitis and Bacteroides fragilis was cultured and the blood. 3 enterococcus faecalis in the urine, UTI 4 nonfunctioning colostomy post colectomy and the patient has NG tube in place and the patient is still on TPN for nutritional support. The output in the colostomy bag is still minimal and the NG tube is still in place 5 ischemic right lower extremity/foot, improving and the patient has regained pulses in the right lower extremity and there is no evidence of any gangrenous transformation. The patient's pain in the lower extremities improved and she started gradually putting some weight on once she gets stronger. 6 lactic acidosis, recovered 7 TPN for nutritional support 8 hypertension 9 hypothyroidism 10 acute kidney injury, recovered and the renal function is normalized 11 leukocytosis, improving 12 patchy bilateral pulmonary infiltrates, on today's chest x-ray there is improvement in the volume status and improvement Plan Continue supportive care. TPN. Keep NG tube in place. Monitor output from the colostomy site. We'll follow.
--- NOTE | 2017-12-12 13:24 | P.PN ---
Subjective Progress Note Date: 12/12/17 The patient is status post laparotomy with ostomy creation. She reports irritative problems from her nasogastric tube. She is yet to ambulate. She still has a Miranda catheter. She has multiple lines including from TPN. No output through her ostomy. Objective - Vital Signs Vital signs: Vital Signs Temp 98.2 F 12/12/17 07:00 Pulse 70 12/12/17 07:38 Resp 16 12/12/17 08:00 BP 140/74 12/12/17 07:00 Pulse Ox 96 12/12/17 07:00 Intake & Output 12/11/17 12/12/17 12/12/17 18:59 06:59 18:59 Intake Total 1372 934 Output Total 1560 1515 1700 Balance -188 -581 -1700 Weight 91.1 kg 82.5 kg Intake: IV 872 834 Amino Acid 5%-D15w+Lytes* 700 700 E* 1,000 ml @ 70 mls/hr IV .BY DURATION [facility] Rx#: [id number] Fat Emulsion 20% 250 ml 42 84 In Empty Bag 1 bag @ 21 mls/hr IV DAILY@1600 [facility] Rx#:[id number] Piperacillin-Tazobactam 3 100 50 .375 gm In Dextrose/Water 1 50ml.bag @ 12.5 mls/hr IVPB Q8HR [facility] Rx#: [id number] Sodium Chloride 0.45% 1, 30 000 ml @ 5 mls/hr IV . Q24H [facility] Rx#:[id number] Intake, IV Titration 500 100 Amount Fluconazole in NaCl,Iso- 100 Osm 200 mg In Saline 1 100ml.bag @ 100 mls/hr IVPB DAILY@1800 [facility] Rx#: [id number] Magnesium Sulfate-D5w Pmx 100 1 gm In Dextrose/Water 1 100ml.bag @ 100 mls/hr IVPB Q1H [facility] Rx#: [id number] Potassium Chloride 10 meq 100 In Water For Injection 1 100ml.bag @ 100 mls/hr IVPB Q1H [facility] Rx#: [id number] metroNIDAZOLE-NS PMX 500 200 100 mg In Saline 1 100ml.bag @ 100 mls/hr IVPB Q8HR [facility] Rx#:[id number] Output: Gastric Drainage 110 Urine 1550 1405 1700 Uretheral (Miranda) 400 Stool 10 Other: Voiding Method Indwelling Catheter Indwelling Catheter Indwelling Catheter # Voids 1 # Bowel Movements 0 # Emeses 0 ABP, PAP, CO, CI - Last Documented Arterial Blood Pressure 131/70 - Exam GENERAL: Well developed and in no acute distress. Pleasant. HEENT: No sclera icterus. Extraocular movements grossly intact. Moist buccal mucosa. Head is atraumatic, normocephalic. Hears conversational speech. NG tube present NECK: Supple without lymphadenopathy. CHEST: Non-labored respirations and equal bilateral excursions. CARDIOVASCULAR: Regular rate and rhythm. Palpable 2+ radial pulses. ABDOMEN: [place] and patent without stool or flatus. Dressing intact. MUSCULOSKELETAL: No clubbing, cyanosis or edema. NEUROLOGIC: No focal or lateralizing signs. PSYCH: Appropriate affect. Alert and oriented to person, place and time. SKIN: Good skin turgor. Well perfused. - Labs CBC & Chem 7: 12/12/17 05:09 12/12/17 05:09 Labs: Abnormal Lab Results - Last 24 Hours (Table) 12/12/17 12/12/17 12/12/17 Range/Units 00:20 05:09 05:09 WBC 11.9 H (3.8-10.6) k/uL RBC 3.36 L (3.80-5.40) m/uL Hgb 9.8 L (11.4-16.0) gm/dL Hct 31.1 L (34.0-46.0) % Sodium 132 L (137-145) mmol/L BUN 18 H (7-17) mg/dL Glucose 110 H (74-99) mg/dL POC Glucose (mg/dL) 109 H (75-99) mg/dL Calcium 8.3 L (8.4-10.2) mg/dL 12/12/17 12/12/17 Range/Units 06:16 12:00 WBC (3.8-10.6) k/uL RBC (3.80-5.40) m/uL Hgb (11.4-16.0) gm/dL Hct (34.0-46.0) % Sodium (137-145) mmol/L BUN (7-17) mg/dL Glucose (74-99) mg/dL POC Glucose (mg/dL) 108 H 123 H (75-99) mg/dL Calcium (8.4-10.2) mg/dL Microbiology - Last 24 Hours (Table) 12/06/17 13:52 Blood Culture - Preliminary Blood No Growth after 120 hours Assessment and Plan (1) Colostomy status Current Visit: Yes Status: Acute Code(s): Z93.3 - COLOSTOMY STATUS SNOMED Code(s): 766312691 (2) Ischemic colitis Current Visit: Yes Status: Acute Code(s): K55.9 - VASCULAR DISORDER OF INTESTINE, UNSPECIFIED SNOMED Code(s): 60677686
[2017-12-12] MEDS: FAT EMULSION 20% 250 ML in EMPTY BAG 1 BAG IV SCH (15:19)
--- NOTE | 2017-12-12 15:23 | P.PN ---
Subjective 12/11/2017, the patient is still having limited amount of activity in her colostomy bag. Some minimal amount of liquidy material accumulating. NG tube is in place. Surgical wound site is clean. No active respiratory difficulties or issues for now. Hemodynamically stable. Afebrile. Receiving TPN. Electrolytes are all within normal limits. She is on a combination of Zosyn and Diflucan. Using incentive spirometer. Sitting up on a chair. Her overall weakness is gradually improving. The active issue for now remains the slow recovery of the bowel activity post surgery. 12/12/2017 the patient is on a surgical floor. Unfortunately minimal amount of output is seen in the colostomy bag. Still on TPN. The abdominal wound is clean. No fever or chills. No other respiratory difficulties. She remains on Zosyn and Diflucan. NG tube is in place. Objective - Vital Signs Vital signs: Vital Signs Temp 98.0 F 12/12/17 15:00 Pulse 70 12/12/17 15:00 Resp 15 12/12/17 15:00 BP 133/75 12/12/17 15:00 Pulse Ox 96 12/12/17 15:00 Intake & Output 12/11/17 12/12/17 12/12/17 18:59 06:59 18:59 Intake Total 1372 934 560 Output Total 1560 1515 2100 Balance -188 581 1540 Weight 91.1 kg 82.5 kg Intake: IV 872 834 560 Amino Acid 5%-D15w+Lytes* 700 700 560 E* 1,000 ml @ 70 mls/hr IV .BY DURATION [facility] Rx#: [id number] Fat Emulsion 20% 250 ml 42 84 In Empty Bag 1 bag @ 21 mls/hr IV DAILY@1600 [facility] Rx#:[id number] Piperacillin-Tazobactam 3 100 50 .375 gm In Dextrose/Water 1 50ml.bag @ 12.5 mls/hr IVPB Q8HR [facility] Rx#: [id number] Sodium Chloride 0.45% 1, 30 000 ml @ 5 mls/hr IV . Q24H [facility] Rx#:[id number] Intake, IV Titration 500 100 Amount Fluconazole in NaCl,Iso- 100 Osm 200 mg In Saline 1 100ml.bag @ 100 mls/hr IVPB DAILY@1800 [facility] Rx#: [id number] Magnesium Sulfate-D5w Pmx 100 1 gm In Dextrose/Water 1 100ml.bag @ 100 mls/hr IVPB Q1H [facility] Rx#: [id number] Potassium Chloride 10 meq 100 In Water For Injection 1 100ml.bag @ 100 mls/hr IVPB Q1H [facility] Rx#: [id number] metroNIDAZOLE-NS PMX 500 200 100 mg In Saline 1 100ml.bag @ 100 mls/hr IVPB Q8HR [facility] Rx#:[id number] Output: Gastric Drainage 110 Urine 1550 1405 2100 Uretheral (Miranda) 800 Stool 10 Other: Voiding Method Indwelling Catheter Indwelling Catheter Indwelling Catheter # Voids 1 # Bowel Movements 0 # Emeses 0 ABP, PAP, CO, CI - Last Documented Arterial Blood Pressure 131/70 - Exam No acute distress, awake and alert, nasal O2 in place. The patient has an NG tube in place and output has been only minimally without any significant output from the NG tube. HEENT examination is grossly unremarkable. Mucous membranes are moist. Neck supple. Full range of motion. No adenopathy thyromegaly or neck vein distention. Cardiovascular examination reveals regular rhythm rate. S1-S2 normal. No S3 or S4. No discernible murmur noted. Lungs reveal bilaterally equal breath sounds. Some bilateral coarse rhonchi are noted. No wheezes or crackles. Breath sounds equal bilaterally. Breath sounds are improved. Abdomen soft without bowel sounds. No masses. No tenderness. Fresh colostomy is noted. The patient has a colostomy site is viable. No output is in the colostomy bag. Bowel sounds are absent at this point. No abdominal distention. The patient has sumaya with retention sutures holding the abdominal wound together. Extremities are intact. Examination of the extremities revealed easily palpable radial, femoral and pedal pulses. There was no cyanosis, clubbing or edema. SkinExamination of the skin revealed no evidence of significant rashes, suspicious appearing nevi or other concerning lesions. The wound description as above Neurologic examination is difficult to assess but she moves all 4 extremities well. - Labs CBC & Chem 7: 12/12/17 05:09 12/12/17 05:09 Labs: Abnormal Lab Results - Last 24 Hours (Table) 12/12/17 12/12/17 12/12/17 Range/Units 00:20 05:09 05:09 WBC 11.9 H (3.8-10.6) k/uL RBC 3.36 L (3.80-5.40) m/uL Hgb 9.8 L (11.4-16.0) gm/dL Hct 31.1 L (34.0-46.0) % Sodium 132 L (137-145) mmol/L BUN 18 H (7-17) mg/dL Glucose 110 H (74-99) mg/dL POC Glucose (mg/dL) 109 H (75-99) mg/dL Calcium 8.3 L (8.4-10.2) mg/dL 12/12/17 12/12/17 Range/Units 06:16 12:00 WBC (3.8-10.6) k/uL RBC (3.80-5.40) m/uL Hgb (11.4-16.0) gm/dL Hct (34.0-46.0) % Sodium (137-145) mmol/L BUN (7-17) mg/dL Glucose (74-99) mg/dL POC Glucose (mg/dL) 108 H 123 H (75-99) mg/dL Calcium (8.4-10.2) mg/dL Microbiology - Last 24 Hours (Table) 12/06/17 13:52 Blood Culture - Preliminary Blood No Growth after 120 hours Assessment and Plan Plan: -Septic shock shock resolved secondary to colitis. Patient is on Zosyn and metronidazole patient has enterococcus in the urine significant of which is unknown although Zosyn, covers that organism as well. 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 -Toxic encephalopathy from opiates which resolved. -Fluid overload and pulmonary edema secondary to IV fluids she received which improved with Lasix. -Nor epinephrine induced vasoconstriction and bluish discoloration of the toes Time with Patient: Greater than 30
[2017-12-12] MEDS: FLUCONAZOLE IN NACL,ISO-OSM 200 MG in SALINE 1 100ML.BAG IVPB SCH (17:29)
[2017-12-12] MEDS: BENZOCAINE/MENTHOL LOZENG 1 EACH LOZENGE MUCOUS MEM PRN ×2 (17:54→21:38)
[2017-12-12 18:13] LABS: Glucose,Whole Blood 109 mg/dL (75-99)
[2017-12-12] MEDS: 1: MVI, ADULT NO.4 WITH VIT K 10 ML, TRACE (CONC-1ML/DOSE) 1 ML in AMINO ACID 5%-D15W+LY IV SCH ×6 (21:45→21:47)
[2017-12-13] MEDS: INSULIN ASPART 100 UNIT/ML 1 ML 10 ML VIAL SQ SCH ×5 (00:18→23:53)
[2017-12-13 00:19] LABS: Glucose,Whole Blood 116 mg/dL (75-99)
[2017-12-13] MEDS: HYDROmorphone 1 MG/ML 1 ML SYRINGE IVP PRN ×7 (01:19→23:59)
[2017-12-13] MEDS: METOCLOPRAMIDE 5 MG/ML 2 ML VIAL IVP SCH ×4 (05:14→23:53)
[2017-12-13] MEDS: BENZOCAINE/MENTHOL LOZENG 1 EACH LOZENGE MUCOUS MEM PRN ×3 (05:15→21:18)
[2017-12-13] MEDS: IPRATROPIUM-ALBUTEROL 3 ML NEB INHALATION SCH ×4 (06:56→19:20)
--- NOTE | 2017-12-13 06:57 | PN ---
PROGRESS NOTE DATE OF SERVICE: 12/12/2017. REASON FOR FOLLOWUP: Abdominal sepsis from ischemic bowel. INTERVAL HISTORY: The patient is afebrile. She is breathing comfortably. Still complaining of pain to the left nostril from the NG. No chest pain or shortness of breath. Occasional cough. No abdominal pain. EXAMINATION: Blood pressure 133/75 with a pulse of 73, temperature 98. She is 96% on room air. General description is an elderly female up in the bed in no distress. RESPIRATORY SYSTEM: Unlabored breathing. Clear to auscultation anteriorly. HEART: S1, S2. Regular rate and rhythm. ABDOMEN: Soft, no tenderness. EXTREMITIES: No edema of the feet. LABS: Hemoglobin 9.8, white count 11.9, BUN of 15, creatinine 0.80. DIAGNOSTIC IMPRESSION AND PLAN: Patient with ischemic colitis, status post laparotomy and diverting colostomy in a patient who did have Bacteroides fragilis bacteremia. The patient is currently on Zosyn, fluconazole as well as Diflucan, that will be continued. Once oral intake improves to transition to oral antibiotics. Continue supportive care. MMODL / IJN: [id number] /
[2017-12-13 07:06] LABS: Basophils % (A) 0 %; Eosinophils # (A) 0.4 k/uL (0-0.7); Eosinophils % (A) 4 %; HCT 30.7 % (34.0-46.0); HGB 9.6 gm/dL (11.4-16.0); Lymphocytes # (A) 0.8 k/uL (1.0-4.8); Lymphocytes % (A) 7 %; MCH 29.4 pg (25.0-35.0); MCHC 31.4 g/dL (31.0-37.0); MCV 93.8 fL (80.0-100.0); Mean Platelet Volume 7.4; Monocytes # (A) 0.9 k/uL (0-1.0); Monocytes % (A) 9 %; Neutrophils # (A) 8.2 k/uL (1.3-7.7); Neutrophils % (A) 78 %; Platelet Count 353 k/uL (150-450); RBC 3.27 m/uL (3.80-5.40); RDW 14.5 % (11.5-15.5); WBC 10.5 k/uL (3.8-10.6)
[2017-12-13 07:22] LABS: Calcium 8.1 mg/dL (8.4-10.2); Phosphorus 4.1 mg/dL (2.5-4.5); Potassium 3.7 mmol/L (3.5-5.1)
[2017-12-13 07:50] LABS: Glucose,Whole Blood 110 mg/dL (75-99)
[2017-12-13] MEDS: metroNIDAZOLE-NS PMX 500 MG in SALINE 1 100ML.BAG IVPB SCH ×3 (08:32→23:46)
[2017-12-13] MEDS: PANTOPRAZOLE 40 MG/10 ML VIAL IV SCH (08:34)
[2017-12-13] MEDS: HEPARIN SODIUM,PORCINE 5,000 UNIT/ML 1 ML VIAL SQ SCH ×2 (08:34→21:17)
[2017-12-13] MEDS: LEVOTHYROXINE IVP 100 MCG/5 ML VIAL IV SCH (08:35)
[2017-12-13] MEDS ORDERED: POTASSIUM CHLORIDE 20 MEQ in WATER FOR INJECTION 1 100ML.BAG IVPB ONE (09:00)
[2017-12-13] MEDS: PIPERACILLIN-TAZOBACTAM 3.375 GM in DEXTROSE/WATER 1 50ML.BAG IVPB SCH ×3 (09:30→23:46)
--- NOTE | 2017-12-13 10:43 | P.PN ---
<Elisa Wise Kalyani - Last Filed: 12/13/17 10:35> Subjective Progress Note Date: 12/13/17 77-year-old female sitting up in a chair this morning continues to report the nasogastric tube is very bothersome. States is not passing as. Small amount of liquid noted from the ostomy. Reports no nausea vomiting. Patient does report that she was able to ambulate short distance yesterday decrease numbness and tingling to the bilateral feet and hands has improved. TPN in progress. POSTOP December 01 diagnostic laparoscopy with lysis of adhesions exploratory laparotomy with partial colectomy mobilization splenic flexure, repair ventral hernia 2 done for severe septic shock suspect ischemic bowel Objective - Vital Signs Vital signs: Vital Signs Temp 98.0 F 12/13/17 07:47 Pulse 96 12/13/17 07:47 Resp 16 12/13/17 08:48 BP 145/73 12/13/17 07:47 Pulse Ox 96 12/13/17 07:47 Intake & Output 12/12/17 12/13/17 12/13/17 18:59 06:59 18:59 Intake Total 1571 1785 Output Total 2400 1630 Balance -829 155 Intake: IV 560 550 Amino Acid 5%-D15w+Lytes* 560 E* 1,000 ml @ 70 mls/hr IV .BY DURATION [facility] Rx#: [id number] Fat Emulsion 20% 250 ml 250 In Empty Bag 1 bag @ 21 mls/hr IV DAILY@1600 [facility] Rx#:[id number] Piperacillin-Tazobactam 3 50 .375 gm In Dextrose/Water 1 50ml.bag @ 12.5 mls/hr IVPB Q8HR [facility] Rx#: [id number] Vancomycin 1,500 mg In 250 Sodium Chloride 0.9% 250 ml @ 125 mls/hr IVPB Q24H [facility] Rx#:[id number] Intake, IV Titration 1011 100 Amount Mvi, Adult No.4 with Vit 1011 K 10 ml Trace (Conc-1Ml/ Dose) 1 ml In Amino Acid 5%-D15w+Lytes*E* 1,000 ml @ 70 mls/hr IV .BY DURATION [facility] Rx#: [id number] metroNIDAZOLE-NS PMX 500 100 mg In Saline 1 100ml.bag @ 100 mls/hr IVPB Q8HR [facility] Rx#:[id number] Oral 100 TPN/PPN 1035 Amino Acid 5%-D15w+Lytes* 1000 E* 1,000 ml @ 70 mls/hr IV .BY DURATION [facility] Rx#: [id number] Sodium Chloride 0.45% 1, 35 000 ml @ 5 mls/hr IV . Q24H [facility] Rx#:[id number] Output: Gastric Drainage 10 Urine 2400 1620 Uretheral (Miranda) 800 400 Other: Voiding Method Indwelling Catheter Bedpan Bedpan # Voids 6 # Bowel Movements 0 # Emeses 0 ABP, PAP, CO, CI - Last Documented Arterial Blood Pressure 131/70 - Exam Exam 77-year-old female sitting up in a chair pleasant cooperative talkative "why did this happen to me" Lungs diminished at the bases otherwise adequate air movement no wheezing rales or rhonchi sats are 96 percent 2 L nasal cannula no shortness of breath Heart S1-S2 audible regular Abdomen ostomy stoma pink small amount liquid stool in the ostomy bag no gas [address] suture line well approximated surgical dressing dry nasogastric tube to suction few hypoactive bowel tones is not passing gas is not belching Extremities tips of the fingers dusky and the bottom of the feet increase sensation - Labs CBC & Chem 7: 12/13/17 06:27 12/13/17 06:27 Labs: Abnormal Lab Results - Last 24 Hours (Table) 12/12/17 12/12/17 12/13/17 Range/Units 12:00 17:49 00:07 RBC (3.80-5.40) m/uL Hgb (11.4-16.0) gm/dL Hct (34.0-46.0) % Neutrophils # (1.3-7.7) k/uL Lymphocytes # (1.0-4.8) k/uL Sodium (137-145) mmol/L BUN (7-17) mg/dL Glucose (74-99) mg/dL POC Glucose (mg/dL) 123 H 109 H 116 H (75-99) mg/dL Calcium (8.4-10.2) mg/dL 12/13/17 12/13/17 12/13/17 Range/Units 06:27 06:27 06:43 RBC 3.27 L (3.80-5.40) m/uL Hgb 9.6 L (11.4-16.0) gm/dL Hct 30.7 L (34.0-46.0) % Neutrophils # 8.2 H (1.3-7.7) k/uL Lymphocytes # 0.8 L (1.0-4.8) k/uL Sodium 134 L (137-145) mmol/L BUN 18 H (7-17) mg/dL Glucose 109 H (74-99) mg/dL POC Glucose (mg/dL) 110 H (75-99) mg/dL Calcium 8.1 L (8.4-10.2) mg/dL Microbiology - Last 24 Hours (Table) 12/06/17 13:52 Blood Culture - Final Blood No Growth after 144 hours Assessment and Plan Assessment: Impression Acute Septic shock secondary UTI and subsequent ischemic colitis Hypertension 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 Elisa Wise nurse practitioner acting as scribe for signing physician. <Dakota Hutton - Last Filed: 12/13/17 17:39> Objective - Vital Signs Vital signs: Vital Signs Temp 97.3 F L 12/13/17 14:44 Pulse 69 12/13/17 14:44 Resp 18 12/13/17 14:44 BP 146/89 12/13/17 14:44 Pulse Ox 96 12/13/17 14:44 Intake & Output 12/12/17 12/13/17 12/13/17 18:59 06:59 18:59 Intake Total 1571 1785 200 Output Total 2400 1630 Balance -829 155 200 Weight 85.5 kg Intake: IV 560 550 Amino Acid 5%-D15w+Lytes* 560 E* 1,000 ml @ 70 mls/hr IV .BY DURATION [facility] Rx#: [id number] Fat Emulsion 20% 250 ml 250 In Empty Bag 1 bag @ 21 mls/hr IV DAILY@1600 [facility] Rx#:[id number] Piperacillin-Tazobactam 3 50 .375 gm In Dextrose/Water 1 50ml.bag @ 12.5 mls/hr IVPB Q8HR [facility] Rx#: [id number] Vancomycin 1,500 mg In 250 Sodium Chloride 0.9% 250 ml @ 125 mls/hr IVPB Q24H [facility] Rx#:[id number] Intake, IV Titration 1011 100 200 Amount Mvi, Adult No.4 with Vit 1011 K 10 ml Trace (Conc-1Ml/ Dose) 1 ml In Amino Acid 5%-D15w+Lytes*E* 1,000 ml @ 70 mls/hr IV .BY DURATION [facility] Rx#: [id number] Potassium Chloride 20 meq 100 In Water For Injection 1 100ml.bag @ 50 mls/hr IVPB ONCE ONE Rx#: [id number] metroNIDAZOLE-NS PMX 500 100 100 mg In Saline 1 100ml.bag @ 100 mls/hr IVPB Q8HR [facility] Rx#:[id number] Oral 100 TPN/PPN 1035 Amino Acid 5%-D15w+Lytes* 1000 E* 1,000 ml @ 70 mls/hr IV .BY DURATION [facility] Rx#: [id number] Sodium Chloride 0.45% 1, 35 000 ml @ 5 mls/hr IV . Q24H [facility] Rx#:[id number] Output: Gastric Drainage 10 Urine 2400 1620 Uretheral (Miranda) 800 400 Other: Voiding Method Indwelling Catheter Bedpan Bedpan # Voids 6 1 # Bowel Movements 0 # Emeses 0 ABP, PAP, CO, CI - Last Documented Arterial Blood Pressure 131/70 - Labs CBC & Chem 7: 12/13/17 06:27 12/13/17 06:27 Labs: Abnormal Lab Results - Last 24 Hours (Table) 12/12/17 12/13/17 12/13/17 Range/Units 17:49 00:07 06:27 RBC (3.80-5.40) m/uL Hgb (11.4-16.0) gm/dL Hct (34.0-46.0) % Neutrophils # (1.3-7.7) k/uL Lymphocytes # (1.0-4.8) k/uL Sodium 134 L (137-145) mmol/L BUN 18 H (7-17) mg/dL Glucose 109 H (74-99) mg/dL POC Glucose (mg/dL) 109 H 116 H (75-99) mg/dL Calcium 8.1 L (8.4-10.2) mg/dL 12/13/17 12/13/17 12/13/17 Range/Units 06:27 06:43 17:24 RBC 3.27 L (3.80-5.40) m/uL Hgb 9.6 L (11.4-16.0) gm/dL Hct 30.7 L (34.0-46.0) % Neutrophils # 8.2 H (1.3-7.7) k/uL Lymphocytes # 0.8 L (1.0-4.8) k/uL Sodium (137-145) mmol/L BUN (7-17) mg/dL Glucose (74-99) mg/dL POC Glucose (mg/dL) 110 H 137 H (75-99) mg/dL Calcium (8.4-10.2) mg/dL Microbiology - Last 24 Hours (Table) 12/06/17 13:52 Blood Culture - Final Blood No Growth after 144 hours Assessment and Plan Assessment: As above. Patient still has not had adequate bowel function through the ostomy. We'll check repeat abdominal x-rays tomorrow. Continue TPN for now. Keep nasogastric tube for now. (1) Abdominal pain Current Visit: Yes Status: Acute Code(s): R10.9 - UNSPECIFIED ABDOMINAL PAIN SNOMED Code(s): 26220985
[2017-12-13 11:32] LABS: Glucose,Whole Blood 97 mg/dL (75-99)
[2017-12-13] MEDS: 1: MVI, ADULT NO.4 WITH VIT K 10 ML, TRACE (CONC-1ML/DOSE) 1 ML in AMINO ACID 5%-D15W+LY IV SCH ×3 (12:22)
[2017-12-13] MEDS: VANCOMYCIN 1,500 MG in SODIUM CHLORIDE 0.9% 250 ML IVPB SCH (13:34)
--- NOTE | 2017-12-13 14:33 | P.PN ---
Subjective Progress Note Date: 12/13/17 Principal diagnosis: Shock, and dairy to anaerobic infection related to ischemic colitis. recovered. On today's evaluation of 12/06/2017, the patient is awake and alert. NG tube is in place. The patient has been nothing by mouth for the past 5 days as the patient underwent a extensive laparotomy, transverse colectomy, diverticulitis to ct, repair of a ventral hernia 2. The patient came in with septic condition related to an underlying enterococcal urine checked infection subsequently she developed abdominal pain and presentation was typical of ischemic colitis. The patient underwent expiratory laparotomy in that regard. She was severely hemodynamics unstable and the patient required high doses of pressors and IV fluids and ultimately she improved to the point where she is currently off pressors. She developed some ischemia in the right foot and she is complaining of pain in the right lower extremity. This ischemia related to severe hypotension and use of high dose of pressors. At this point in time the skin is mottled and there is some areas of ecchymosis nevertheless the patient has adequate pulses in lower extremities bilaterally and vascular surgery evaluated the limbs. No signs of any gangrenous changes at this point in time. The patient currently extubated. The patient is currently on oxygen by nasal cannula. No respiratory distress. No cough or sputum production. No abdominal pain. The colostomy site is still nonfunctional. The tissue itself is viable and bowel sounds are absent at this point in time. TPN is being considered by general surgery. Antibiotic coverage includes IV Diflucan and IV Zosyn. The most recent blood cultures showing anaerobic growth in the blood probably of a intra-abdominal source and the urine cultures showing enterococcus faecalis, penicillin sensitive. The patient remains on IV Zosyn. The sputum is showing Fatoumata which is a colonizer. The chest x-ray from today shows a upper lobe infiltrate and left retrocardiac infiltration. No other abnormalities otherwise noted. On today's evaluation of a 2017, the patient is still awake and alert. She remains nothing by mouth. No bowel sounds. No bowel activity. Colostomy site is viable. There is no output within the colostomy bag. Bowel sounds are absent. NG tube is in place. Output from the NG tube has been to 50 mL for yesterday. The patient's net fluid balance is +6 26 mL over the past 24 hours. TPN was started yesterday for nutritional support. Noted the patient was septic. She has a enterococcus faecalis in the urine and anaerobic gram- negative bacillus and the blood and the patient remains on same antibiotic coverage including a combination of Zosyn and Diflucan. Furthermore, the chest x-ray from today shows development of patchy breath and pulmonary infiltrates. There is a right upper lobe infiltration left lower lobe infiltration which raises the concern for a superimposed pneumonia was at its ventilator as. Rule out healthcare associated or aspiration type. The patient has a congested cough. Unable to bring up much sputum. At this point in time, she is on oxygen at 2 L/m nasal cannula and his saturations around 95%. She is not spiking a fever and her white cell count is down to 13. Also, she still complaining of pain in lower extremity and she has decent pulses in lower extremities bilaterally. No altered mentation. No other significant events overnight. On 12/08/2017 patient is being seen for a follow-up. The patient awake and alert. NG tube is in place. Output has been around 300 mL for the past 24 hours and the patient is having on and off nausea. Remains nothing by mouth on TPN. The colostomy still nonfunctional and there is no output within the colostomy bag. On examination the patient has a normal abdominal wound and has some sluggish bowel sounds. She is receiving TPN for nutritional support. I give her a dose of Lasix and she is in a negative fluid balance as the patient is producing adequate amount of urine output and the net fluid balance is -7.3 L. She is producing more than 100 mL an hour of urine output and her potassium was dropped and is being replaced for now. Note that the blood culture came back positive for Bacteroides fragilis and the patient has Enterococcus faecalis in the urine and the patient remains on IV Zosyn and Diflucan. The chest x-ray showed patchy breath and pulmonary infiltrates yet despite this the patient is not having any significant rest or distress. No significant cough or sputum production. No fever. There is some improvement today's chest exam hoping that this may turn to be in acute lung injury or even fluid overload. The findings however looked to be more patchy specially in the right upper lobe. We'll going to continue to monitor this abnormality. No significant electrolyte disturbance and the hypokalemia. The white cell count is at 18.0. The patient has a IJ triple lumen catheter that will be ultimately switched to a PICC line for IV access and TPN administration. On today's evaluation of a 12/09/2017 the patient is resting comfortably in bed. She was able to sit up on a chair for brief period of time yesterday. NG tube is in place. Output is minimal. Colostomy site is still nonfunctional and there is no output from the colostomy bag. Abdomen is nondistended. Surgical wound site is the same. The patient is still receiving TPN for nutritional support. The plan is to remove the triple-lumen catheter and inserted a PICC line catheter today. The patient remains on Zosyn and Diflucan. The patient is having on and off nausea. No emesis has been noted. No fever or chills. No other significant events overnight. The chest x-ray from today shows improvement in the previously described pulmonary infiltrates. There is improvement in aeration and improvement in the volume status. There is some persistent lower lobe atelectatic changes and interstitial edema bilaterally. General surgeries on the case. No other significant events overnight. Mental status appropriate at this point in time. The net fluid balance is negative for yesterday and today. On 12/10/2017 patient is essentially the same. Unfortunately were not seeing any bowel activity yet. Colostomy site is viable yet there is no output noted. There are bowel sounds are regular was added yesterday. NG tube producing approximately 100 ML's every 8 hours. The patient is afebrile. She is receiving TPN for nutritional support. Surgical wound site is dry clean and intact. Chest x-ray findings are improving and the patient has some limited residual atelectasis/effusion the left lung base. She has a PICC line. He is on IV Zosyn and Diflucan. No altered mentation. No shortness of breath. She is resting comfortably in bed. She is weak. She was able to sit up on a chair yesterday. A flat film of the abdomen was done and showed an overall nonobstructive bowel gas pattern and there was no evidence of ileus or bowel obstruction. On 12/11/2017, the patient is still having limited amount of activity in her colostomy bag. Some minimal amount of liquidy material accumulating. NG tube is in place. Surgical wound site is clean. No active respiratory difficulties or issues for now. Hemodynamically stable. Afebrile. Receiving TPN. Electrolytes are all within normal limits. She is on a combination of Zosyn and Diflucan. Using incentive spirometer. Sitting up on a chair. Her overall weakness is gradually improving. The active issue for now remains the slow recovery of the bowel activity post surgery. On 12/12/2017, the patient is on a surgical floor. Unfortunately minimal amount of output is seen in the colostomy bag. Still on TPN. The abdominal wound is clean. No fever or chills. No other respiratory difficulties. She remains on Zosyn and Diflucan. NG tube is in place. Patient is seen today 12/13/2017 in follow-up on the surgical floor. She remains awake and alert in no acute distress. Maintaining good O2 saturations in the 90s on 2 L/m per nasal cannula. He denies any worsening shortness of breath, cough or congestion. He well with the incentive spirometer. She is up in a chair for several hours today. Still no significant outpatient from the colostomy. NG-tube remains in place. Being nourished via TPN. Objective - Vital Signs Vital signs: Vital Signs Temp 98.0 F 12/13/17 07:47 Pulse 96 12/13/17 07:47 Resp 16 12/13/17 08:48 BP 145/73 12/13/17 07:47 Pulse Ox 96 12/13/17 07:47 Intake & Output 12/12/17 12/13/17 12/13/17 18:59 06:59 18:59 Intake Total 1571 1785 200 Output Total 2400 1630 Balance -829 155 200 Weight 85.5 kg Intake: IV 560 550 Amino Acid 5%-D15w+Lytes* 560 E* 1,000 ml @ 70 mls/hr IV .BY DURATION [facility] Rx#: [id number] Fat Emulsion 20% 250 ml 250 In Empty Bag 1 bag @ 21 mls/hr IV DAILY@1600 [facility] Rx#:[id number] Piperacillin-Tazobactam 3 50 .375 gm In Dextrose/Water 1 50ml.bag @ 12.5 mls/hr IVPB Q8HR [facility] Rx#: [id number] Vancomycin 1,500 mg In 250 Sodium Chloride 0.9% 250 ml @ 125 mls/hr IVPB Q24H [facility] Rx#:[id number] Intake, IV Titration 1011 100 200 Amount Mvi, Adult No.4 with Vit 1011 K 10 ml Trace (Conc-1Ml/ Dose) 1 ml In Amino Acid 5%-D15w+Lytes*E* 1,000 ml @ 70 mls/hr IV .BY DURATION [facility] Rx#: [id number] Potassium Chloride 20 meq 100 In Water For Injection 1 100ml.bag @ 50 mls/hr IVPB ONCE ONE Rx#: [id number] metroNIDAZOLE-NS PMX 500 100 100 mg In Saline 1 100ml.bag @ 100 mls/hr IVPB Q8HR [facility] Rx#:[id number] Oral 100 TPN/PPN 1035 Amino Acid 5%-D15w+Lytes* 1000 E* 1,000 ml @ 70 mls/hr IV .BY DURATION [facility] Rx#: [id number] Sodium Chloride 0.45% 1, 35 000 ml @ 5 mls/hr IV . Q24H [facility] Rx#:[id number] Output: Gastric Drainage 10 Urine 2400 1620 Uretheral (Miranda) 800 400 Other: Voiding Method Indwelling Catheter Bedpan Bedpan # Voids 6 1 # Bowel Movements 0 # Emeses 0 ABP, PAP, CO, CI - Last Documented Arterial Blood Pressure 131/70 - Exam No acute distress, awake and alert, nasal O2 in place. The patient has an NG tube in place and output has been only minimally without any significant output from the NG tube. HEENT examination is grossly unremarkable. Mucous membranes are moist. Neck supple. Full range of motion. No adenopathy thyromegaly or neck vein distention. Cardiovascular examination reveals regular rhythm rate. S1-S2 normal. No S3 or S4. No discernible murmur noted. Lungs reveal bilaterally equal breath sounds. Some bilateral coarse rhonchi are noted. No wheezes or crackles. Breath sounds equal bilaterally. Breath sounds are improved. Abdomen soft without bowel sounds. No masses. No tenderness. Fresh colostomy is noted. The patient has a colostomy site is viable. No output is in the colostomy bag. Bowel sounds are absent at this point. No abdominal distention. The patient has sumaya with retention sutures holding the abdominal wound together. Extremities are intact. Examination of the extremities revealed easily palpable radial, femoral and pedal pulses. There was no cyanosis, clubbing or edema. SkinExamination of the skin revealed no evidence of significant rashes, suspicious appearing nevi or other concerning lesions. The wound description as above Neurologic examination is difficult to assess but she moves all 4 extremities well. - Labs CBC & Chem 7: 12/13/17 06:27 12/13/17 06:27 Labs: Abnormal Lab Results - Last 24 Hours (Table) 12/12/17 12/13/17 12/13/17 Range/Units 17:49 00:07 06:27 RBC (3.80-5.40) m/uL Hgb (11.4-16.0) gm/dL Hct (34.0-46.0) % Neutrophils # (1.3-7.7) k/uL Lymphocytes # (1.0-4.8) k/uL Sodium 134 L (137-145) mmol/L BUN 18 H (7-17) mg/dL Glucose 109 H (74-99) mg/dL POC Glucose (mg/dL) 109 H 116 H (75-99) mg/dL Calcium 8.1 L (8.4-10.2) mg/dL 12/13/17 12/13/17 Range/Units 06:27 06:43 RBC 3.27 L (3.80-5.40) m/uL Hgb 9.6 L (11.4-16.0) gm/dL Hct 30.7 L (34.0-46.0) % Neutrophils # 8.2 H (1.3-7.7) k/uL Lymphocytes # 0.8 L (1.0-4.8) k/uL Sodium (137-145) mmol/L BUN (7-17) mg/dL Glucose (74-99) mg/dL POC Glucose (mg/dL) 110 H (75-99) mg/dL Calcium (8.4-10.2) mg/dL Microbiology - Last 24 Hours (Table) 12/06/17 13:52 Blood Culture - Final Blood No Growth after 144 hours Assessment and Plan Assessment: Assessment 1 postop day #11 exp laparotomy, colectomy, lysis of adhesions, diverticular colostomy and ventral hernia repair. Patient remains nothing by mouth. NG tube is in place. Colostomy is viable. Minimal amount of output is noted in the NG tube is in place. The patient on TPN for nutritional support. 2 septic shock , recovered. The patient was septic from an anaerobic infection related to ischemic colitis and Bacteroides fragilis was cultured and the blood. 3 enterococcus faecalis in the urine, UTI 4 nonfunctioning colostomy post colectomy and the patient has NG tube in place and the patient is still on TPN for nutritional support. The output in the colostomy bag is still minimal and the NG tube is still in place 5 ischemic right lower extremity/foot, improving and the patient has regained pulses in the right lower extremity and there is no evidence of any gangrenous transformation. The patient's pain in the lower extremities improved and she started gradually putting some weight on once she gets stronger. 6 lactic acidosis, recovered 7 TPN for nutritional support 8 hypertension 9 hypothyroidism 10 acute kidney injury, recovered and the renal function is normalized 11 leukocytosis, improving 12 patchy bilateral pulmonary infiltrates, on today's chest x-ray there is improvement in the volume status and improvement Plan The patient was seen and evaluated by Dr. Parker. She is stable from the pulmonary and critical care standpoint. Still no significant output from the stoma. NG tube remains in place. Continue with her current treatment plan. Increase her activity as tolerated. We'll continue to follow. I, the cosigning physician, performed a history & physical examination of the patient. Lungs sounds crackles in the left posterior base. Maintaining good O2 saturations in the 90s on 2 liters per minute per nasal cannula. I discussed the assessment and plan of care with my nurse practitioner, Miranda Ulrich. I attest to the above note as dictated by her.
[2017-12-13] MEDS: FAT EMULSION 20% 250 ML in EMPTY BAG 1 BAG IV SCH (15:16)
--- NOTE | 2017-12-13 16:17 | P.PN ---
Subjective Progress Note Date: 12/13/17 Progress note being dictated for Dr. Mayen. Septic shock secondary to ischemic bowel Interval history:Patient is 77-year-old female with a known history of hypertension, hypothyroidism, third-degree heart block with pacemaker, colitis/ stomach ulcer in the 1970s, migraine headache and COPD and multiple other medical problems came to ER with complaints of abdominal discomfort mainly in the lower abdomen and shakiness. Denied any fever. Denied any cough or sputum production. Patient does have chronic cough but no recent changes. No diarrhea. No headache or dizziness. No chest pain or shortness of breath. Denied any hematuria or dysuria. Patient says her symptoms began last night around 9:30 PM. Symptoms are getting worse and patient presently ER for further evaluation. Patient was hypotensive in the ER and was associated with normal saline 4 L and was started on levofed drip. Patient was transferred to MICU for intensive care. Patient has leukocytosis 14.4, lactic acid 5.5 and slightly abnormal urine sample. Patient was started on antibiotics and general surgery was consulted for possible ischemic colon. Chest x-ray diffuse interstitial pattern. Correlate for mild congestion. CT of the abdominal pelvis showed perinephric stranding on the left with bilateral perinephric fluid. Consider pyelonephritis. No obstruction is evident. Diverticulosis without acute diverticulitis of the sigmoid colon. pancreas prominence of the antiemetic duct Within the body and tail of the pancreas. Follow-up ERCP could be considered. Correlate for acute pancreatitis. 12/02/2017 Patient was intubated postoperatively. Patient had exploratory laparotomy with lysis of adhesions, colectomy and colostomy bag placement and as well as ventral hernia repair. Patient is still requiring high doses of Levophed. Continued on IV hydration and monitor EUGENIA's. Patient was found have severe leukocytosis today at 40.8. Vancomycin and Flagyl was added along with Zosyn. ID was consulted. Next a chest x-ray showed mild bibasilar atelectasis and small left-sided pleural effusion. Pulmonary and general surgery and ID following. 12/03/2017 Patient remains on mechanical ventilator today. Still on pressor support and gradually tapering down. Patient also having metabolic acidosis and was started on bicarb as well. Patient was also started on stress test steroids with hydrocortisone. Otherwise continued on norepinephrine. Chest x-ray showed bibasilar atelectasis and small left pleural effusion. Urine culture showed group B enterococcus. WBC count is still elevated at 46.9. Currently on broad-spectrum antibiotics. Creatinine 1.76 12/04/2017 Patient was successfully extubated today. Patient is off pressor support and otherwise receiving hydrocortisone. Chest x-ray showed small fluid overload. Urine culture showed group B enterococcus and blood cultures positive for gram-negative bacilli Patient was also noted to have discoloration of the fingers. Otherwise patient is being continued on antibiotics in the form of vancomycin and Zosyn. Currently patient is still drowsy. 12/05/2017 Patient is awake alert and able to answer simple questions. Complaining of thumb pain. Discoloration improving otherwise. Patient was noted to have ventricular tachycardia last night and was placed on amiodarone drip. Continued on hydrocortisone. Blood pressure is fairly stable. Denied any complaints of chest pain. No nausea vomiting or diarrhea. Urine culture showed enterococcus fecaliths. Blood cultures negative. Sputum culture showed Fatoumata. Pulmonary and cardiology and general surgery is following. Leukocytosis with WBC 29 Review of systems could not be obtained from the patient. Current medications reviewed. 12/06/17 77-year-old admitted secondary to ischemic colitis underwent a laparotomy transverse colectomy found to have diverticulitis as well and had a ventral hernia repair patient is in ICU for septic shock shock improved patient has enterococcus in the urine and gram-negative to anaerobic bacteria in the blood repeat blood cultures were obtained. Patient is on Zosyn to cover the still patient is also on empiric Diflucan vancomycin was discontinued patient is off pressor support patient remains to have an G2 patient does have TPN in place. NG tube is still draining. By the time I evaluated the patient patient received a narcotics for pain because of which the patient is bit sleepy and bit confused although was asking appropriate questions like when her NG tube will be out. Has sluggish bowel sounds on exam. 12/07/2017 Patient the continues to have an G2 no significant improvement compared to yesterday. Patient is on TPN at this time. 12/08/2017 Patient is to have nasogastric tube with the little bit of drainage confusion improved area patient is comparing of nausea. Probably secondary to antibiotics patient is Zosyn and metronidazole. Patient received Lasix with significant improvement in her respiratory status. Patient is urinating well. IJ central line was removed and patient is receiving PICC line. Patient had minimally worsening white blood cell count. Low potassium which will be supplemented secondary to Lasix she received an pulmonary edema improved after Lasix. 12/09/2017 Significant changes clinically overall. Patient still has an NG tube with minimal drainage. Respiratory status did improve sodium has gone down a little bit. Patient's vasospasm and bluish discoloration of the toe secondary to not epinephrine is getting better. Patient is off Nor-epinephrine. 12/10/2017 Patient can use to have NG tube slow and steady improvement. No overnight events. 12/11/2017, the patient is still having limited amount of activity in her colostomy bag. Some minimal amount of liquidy material accumulating. NG tube is in place. Surgical wound site is clean. No active respiratory difficulties or issues for now. Hemodynamically stable. Afebrile. Receiving TPN. Electrolytes are all within normal limits. She is on a combination of Zosyn and Diflucan. Using incentive spirometer. Sitting up on a chair. Her overall weakness is gradually improving. The active issue for now remains the slow recovery of the bowel activity post surgery. 12/12/2017 the patient is on a surgical floor. Unfortunately minimal amount of output is seen in the colostomy bag. Still on TPN. The abdominal wound is clean. No fever or chills. No other respiratory difficulties. She remains on Zosyn and Diflucan. NG tube is in place. 12/13/17 sitting up in chair, small liquidy stool in ostomy, no flatus. NG tube present. No nausea or vomiting. Maintained on TPN. Blood sugars controlled. Reports ambulation of minimal distance yesterday, sensation improving in bilateral hands and feet. Maintaining O2 sats in the high 90s on 2 L nasal cannula. Denies chest pain, palpitations or increasing shortness of breath. Abdominal pain controlled. Afebrile, normal WBC. Maintained on vancomycin, Zosyn, fluconazole, Diflucan. Sodium 134. Objective - Vital Signs Vital signs: Vital Signs Temp 97.3 F L 12/13/17 14:44 Pulse 69 12/13/17 14:44 Resp 18 12/13/17 14:44 BP 146/89 12/13/17 14:44 Pulse Ox 96 12/13/17 14:44 Intake & Output 12/12/17 12/13/17 12/13/17 18:59 06:59 18:59 Intake Total 1571 1785 200 Output Total 2400 1630 Balance -829 155 200 Weight 85.5 kg Intake: IV 560 550 Amino Acid 5%-D15w+Lytes* 560 E* 1,000 ml @ 70 mls/hr IV .BY [facility] Rx#: [id number] Fat Emulsion 20% 250 ml 250 In Empty Bag 1 bag @ 21 mls/hr IV DAILY@1600 [facility] Rx#:[id number] Piperacillin-Tazobactam 3 50 .375 gm In Dextrose/Water 1 50ml.bag @ 12.5 mls/hr IVPB Q8HR [facility] Rx#: [id number] Vancomycin 1,500 mg In 250 Sodium Chloride 0.9% 250 ml @ 125 mls/hr IVPB Q24H [facility] Rx#:[id number] Intake, IV Titration 1011 100 200 Amount Mvi, Adult No.4 with Vit 1011 K 10 ml Trace (Conc-1Ml/ Dose) 1 ml In Amino Acid 5%-D15w+Lytes*E* 1,000 ml @ 70 mls/hr IV .BY [facility] Rx#: [id number] Potassium Chloride 20 meq 100 In Water For Injection 1 100ml.bag @ 50 mls/hr IVPB ONCE ONE Rx#: [id number] metroNIDAZOLE-NS PMX 500 100 100 mg In Saline 1 100ml.bag @ 100 mls/hr IVPB Q8HR [facility] Rx#:[id number] Oral 100 TPN/PPN 1035 Amino Acid 5%-D15w+Lytes* 1000 E* 1,000 ml @ 70 mls/hr IV .[facility] Rx#: [id number] Sodium Chloride 0.45% 1, 35 000 ml @ 5 mls/hr IV . Q24H [facility] Rx#:[id number] Output: Gastric Drainage 10 Urine 2400 1620 Uretheral (Miranda) 800 400 Other: Voiding Method Indwelling Catheter Bedpan Bedpan # Voids 6 1 # Bowel Movements 0 # Emeses 0 ABP, PAP, CO, CI - Last Documented Arterial Blood Pressure 131/70 - Exam PHYSICAL EXAM: VITAL SIGNS: As above GENERAL: Sitting up in chair, no acute distress HEENT: Conjunctivae normal. eyes normal. Oral mucosa dry. NG tube present. NECK: No JVD. No thyroid enlargement. No LNs CARDIOVASCULAR: S1, S2 muffled. No murmur RESPIRATION: Breath sounds diminished in the bases. Occasional scattered coarse rhonchi , no crackles. No wheezing. ABDOMEN: Soft, status post surgery. Colostomy present with small liquid bowel movement, retention sutures present, dressing clean dry and intact, hypoactive bowel sounds LEGS: No edema. no swelling PSYCHIATRY: Alert and oriented -3, mood and affect normal. NERVOUS SYSTEM: Cranial N 2-12 grossly normal. Moves all 4 limbs. Diffuse weakness No focal deficits. EXTREMITIES: Finger tips of bilateral hands and bottom areas of bilateral feet, toes dusky, warm Joints: No active swelling. No inflammation. Lymphatic system. No LN neck axilla or groin. Microbiology 12/06/17 13:52 Blood Blood Culture - Final No Growth after 144 hours 12/08/17 19:40 Catheter Tip Catheter Tip Culture - Final 12/01/17 08:20 Blood Blood Culture Gram Stain - Final 12/01/17 08:20 Blood Blood Culture - Final Bacteroides fragilis 12/02/17 Unknown Sputum Gram Stain - Final 12/02/17 Unknown Sputum Sputum Culture - Final Fatoumata albicans 12/01/17 10:18 Urine,Voided Urine Culture - Final Enterococcus faecalis 12/01/17 08:20 Blood Blood Culture - Final - Labs CBC & Chem 7: 12/13/17 06:27 12/13/17 06:27 Labs: Abnormal Lab Results - Last 24 Hours (Table) 12/12/17 12/13/17 12/13/17 Range/Units 17:49 00:07 06:27 RBC (3.80-5.40) m/uL Hgb (11.4-16.0) gm/dL Hct (34.0-46.0) % Neutrophils # (1.3-7.7) k/uL Lymphocytes # (1.0-4.8) k/uL Sodium 134 L (137-145) mmol/L BUN 18 H (7-17) mg/dL Glucose 109 H (74-99) mg/dL POC Glucose (mg/dL) 109 H 116 H (75-99) mg/dL Calcium 8.1 L (8.4-10.2) mg/dL 12/13/17 12/13/17 Range/Units 06:27 06:43 RBC 3.27 L (3.80-5.40) m/uL Hgb 9.6 L (11.4-16.0) gm/dL Hct 30.7 L (34.0-46.0) % Neutrophils # 8.2 H (1.3-7.7) k/uL Lymphocytes # 0.8 L (1.0-4.8) k/uL Sodium (137-145) mmol/L BUN (7-17) mg/dL Glucose (74-99) mg/dL POC Glucose (mg/dL) 110 H (75-99) mg/dL Calcium (8.4-10.2) mg/dL Microbiology - Last 24 Hours (Table) 12/06/17 13:52 Blood Culture - Final Blood No Growth after 144 hours Assessment and Plan Assessment: -Septic shock shock resolved secondary to colitis. Bacteroides fragilis bacteremia. UTI with enterococcus faecalis. -Ischemic gangrenous bowel status post resection, diverting colostomy. -Hypertension -Hypothyroidism -COPD without any acute exacerbation -History of pacemaker for her history of third-degree heart block: Pacemaker was reevaluated without any problems no issues regarding that now. -Toxic encephalopathy from opiates which resolved. -Fluid overload and pulmonary edema secondary to IV fluids she received which improved with Lasix. -Nor epinephrine induced vasoconstriction and bluish discoloration of the toes Plan: Continue current medication regime ,monitoring and symptomatic treatment. Maintain IV antibiotics as per infectious disease. Aggressive pulmonary toileting and incentive spirometer reinforced. PT/OT- Increase ambulation as tolerated. Pain management. TPN/NG tube as per surgery. Social work assisting with discharge planning to subacute rehab. once stable for discharge. The impression and plan of care has been dictated as directed. : I performed a history and examination of this patient, discussed the same with the dictator. I agree with the dictator's note ,documented as a scribe. Any additional findings or plans will be noted.
[2017-12-13] MEDS: FLUCONAZOLE IN NACL,ISO-OSM 200 MG in SALINE 1 100ML.BAG IVPB SCH (17:14)
[2017-12-13 17:27] LABS: Glucose,Whole Blood 137 mg/dL (75-99)
[2017-12-13 18:51] LABS: Appearance,Urine Clear (Clear); Bilirubin,Urine Negative (Negative); Blood,Urine Negative (Negative); Color,Urine Yellow; Glucose,Urine (UA) Negative (Negative); Ketones,Urine Negative (Negative); Leukocyte Esterase,Urine Negative (Negative); Nitrite,Urine Negative (Negative); PH, Urine 7.5 (5.0-8.0); Protein,Urine Negative (Negative); Specific Gravity,Urine 1.009 (1.001-1.035); Urobilinogen,Urine <2.0 mg/dL (<2.0)
[2017-12-13] MEDS: ONDANSETRON 4 MG/2 ML VIAL IVP PRN (21:17)
[2017-12-13] MEDS: SODIUM CHLORIDE 0.45% 1,000 ML IV SCH (21:17)
--- NOTE | 2017-12-13 22:24 | PN ---
PROGRESS NOTE DATE OF SERVICE: 12/13/2017. REASON FOR FOLLOW UP: 1. Ischemic colitis with abdominal sepsis. 2. Possible urinary tract infection. INTERVAL HISTORY: The patient is afebrile. She is breathing comfortably. Still did not have any output in her ostomy bag. The patient denies having any chest pain, shortness of breath cough. Her Miranda has been discontinued. The patient complaining of significant urinary symptoms of burning and frequency. EXAMINATION: Blood pressure 146/89 with a pulse of 87, temperature of 97.3. She is 96% on 2 L nasal cannula. General description is a middle-aged female lying in bed in no distress. RESPIRATORY SYSTEM: Unlabored breathing, clear to auscultation anteriorly. HEART: S1, S2. Regular rate. ABDOMEN: Soft, no tenderness. LABS: Hemoglobin 9.6, white count 10.5, BUN of 18, creatinine 0.85. DIAGNOSTIC IMPRESSION AND PLAN: The patient with ischemic colitis with abdominal sepsis. The patient is status post laparotomy and colostomy. Still did not have any output in the ostomy bag. The patient is currently covered with possible antibiotic for further evaluation oral intake has improved. Continue supportive care. MMODL / IJN: [id number] /
[2017-12-13 23:45] LABS: Glucose,Whole Blood 119 mg/dL (75-99)
[2017-12-14] MEDS: 1: MVI, ADULT NO.4 WITH VIT K 10 ML, TRACE (CONC-1ML/DOSE) 1 ML in AMINO ACID 5%-D15W+LY IV SCH ×6 (01:38→15:26)
[2017-12-14] MEDS: METOCLOPRAMIDE 5 MG/ML 2 ML VIAL IVP SCH ×4 (05:06→23:14)
[2017-12-14] MEDS: VANCOMYCIN 1,500 MG in SODIUM CHLORIDE 0.9% 250 ML IVPB SCH ×2 (05:06→20:43)
[2017-12-14] MEDS: BENZOCAINE/MENTHOL LOZENG 1 EACH LOZENGE MUCOUS MEM PRN ×6 (05:06→23:14)
[2017-12-14] MEDS: INSULIN ASPART 100 UNIT/ML 1 ML 10 ML VIAL SQ SCH ×3 (05:17→18:17)
[2017-12-14 05:28] LABS: Glucose,Whole Blood 110 mg/dL (75-99)
[2017-12-14] MEDS: ONDANSETRON 4 MG/2 ML VIAL IVP PRN ×2 (06:22→19:45)
[2017-12-14] MEDS: metroNIDAZOLE-NS PMX 500 MG in SALINE 1 100ML.BAG IVPB SCH ×3 (07:08→23:13)
[2017-12-14] MEDS: HYDROmorphone 1 MG/ML 1 ML SYRINGE IVP PRN ×5 (07:12→23:13)
[2017-12-14] MEDS: IPRATROPIUM-ALBUTEROL 3 ML NEB INHALATION SCH ×4 (07:32→20:11)
[2017-12-14] MEDS: PIPERACILLIN-TAZOBACTAM 3.375 GM in DEXTROSE/WATER 1 50ML.BAG IVPB SCH ×3 (08:46→23:13)
[2017-12-14] MEDS: HEPARIN SODIUM,PORCINE 5,000 UNIT/ML 1 ML VIAL SQ SCH ×2 (08:48→20:44)
[2017-12-14] MEDS: LEVOTHYROXINE IVP 100 MCG/5 ML VIAL IV SCH (08:48)
[2017-12-14] MEDS: PANTOPRAZOLE 40 MG/10 ML VIAL IV SCH (08:50)
--- NOTE | 2017-12-14 10:12 | XR ---
EXAMINATION TYPE: XR abdomen complete w decub DATE OF EXAM: 12/14/2017 COMPARISON: 12/10/2017 INDICATION: Ileus, small bowel obstruction TECHNIQUE: Abdomen is examined in supine and upright left lateral decubitus views. FINDINGS: Colonic bowel gas is present. A small amount of nonspecific small bowel gas appears to be present. Na sogastric tube has its tip within the mid abdomen. No free air is evident. No suspicious differential air-fluid levels are present. There are some air-fluid levels within the ascending colon. Surgical s kin sumaya are present in the midline. Psoas margins are poorly visualized. No organomegaly is present. Small left pleural effusion may be present. IMPRESSION: 1. Findings are more compatible with ileus with some air moving into the colon prior examinations. Re solving small bowel obstruction be within the differential. Follow-up can be performed as clinically indicated. 2. Suggestion of small left pleural effusion
[2017-12-14] MEDS ORDERED: ACETAMINOPHEN IV (For NPO) 1,000 MG in EMPTY BAG 1 BAG IVPB ONE (10:30)
[2017-12-14] MEDS ORDERED: ACETAMINOPHEN IV (For NPO) 1,000 MG in EMPTY BAG 1 BAG IVPB PRN (10:54)
--- NOTE | 2017-12-14 11:16 | P.PN ---
Subjective Progress Note Date: 12/14/17 Principal diagnosis: Shock, and dairy to anaerobic infection related to ischemic colitis. recovered. On today's evaluation of 12/06/2017, the patient is awake and alert. NG tube is in place. The patient has been nothing by mouth for the past 5 days as the patient underwent a extensive laparotomy, transverse colectomy, diverticulitis to id, repair of a ventral hernia 2. The patient came in with septic condition related to an underlying enterococcal urine checked infection subsequently she developed abdominal pain and presentation was typical of ischemic colitis. The patient underwent expiratory laparotomy in that regard. She was severely hemodynamics unstable and the patient required high doses of pressors and IV fluids and ultimately she improved to the point where she is currently off pressors. She developed some ischemia in the right foot and she is complaining of pain in the right lower extremity. This ischemia related to severe hypotension and use of high dose of pressors. At this point in time the skin is mottled and there is some areas of ecchymosis nevertheless the patient has adequate pulses in lower extremities bilaterally and vascular surgery evaluated the limbs. No signs of any gangrenous changes at this point in time. The patient currently extubated. The patient is currently on oxygen by nasal cannula. No respiratory distress. No cough or sputum production. No abdominal pain. The colostomy site is still nonfunctional. The tissue itself is viable and bowel sounds are absent at this point in time. TPN is being considered by general surgery. Antibiotic coverage includes IV Diflucan and IV Zosyn. The most recent blood cultures showing anaerobic growth in the blood probably of a intra-abdominal source and the urine cultures showing enterococcus faecalis, penicillin sensitive. The patient remains on IV Zosyn. The sputum is showing Fatoumata which is a colonizer. The chest x-ray from today shows a upper lobe infiltrate and left retrocardiac infiltration. No other abnormalities otherwise noted. On today's evaluation of a 2017, the patient is still awake and alert. She remains nothing by mouth. No bowel sounds. No bowel activity. Colostomy site is viable. There is no output within the colostomy bag. Bowel sounds are absent. NG tube is in place. Output from the NG tube has been to 50 mL for yesterday. The patient's net fluid balance is +6 26 mL over the past 24 hours. TPN was started yesterday for nutritional support. Noted the patient was septic. She has a enterococcus faecalis in the urine and anaerobic gram- negative bacillus and the blood and the patient remains on same antibiotic coverage including a combination of Zosyn and Diflucan. Furthermore, the chest x-ray from today shows development of patchy breath and pulmonary infiltrates. There is a right upper lobe infiltration left lower lobe infiltration which raises the concern for a superimposed pneumonia was at its ventilator as. Rule out healthcare associated or aspiration type. The patient has a congested cough. Unable to bring up much sputum. At this point in time, she is on oxygen at 2 L/m nasal cannula and his saturations around 95%. She is not spiking a fever and her white cell count is down to 13. Also, she still complaining of pain in lower extremity and she has decent pulses in lower extremities bilaterally. No altered mentation. No other significant events overnight. On 12/08/2017 patient is being seen for a follow-up. The patient awake and alert. NG tube is in place. Output has been around 300 mL for the past 24 hours and the patient is having on and off nausea. Remains nothing by mouth on TPN. The colostomy still nonfunctional and there is no output within the colostomy bag. On examination the patient has a normal abdominal wound and has some sluggish bowel sounds. She is receiving TPN for nutritional support. I give her a dose of Lasix and she is in a negative fluid balance as the patient is producing adequate amount of urine output and the net fluid balance is -7.3 L. She is producing more than 100 mL an hour of urine output and her potassium was dropped and is being replaced for now. Note that the blood culture came back positive for Bacteroides fragilis and the patient has Enterococcus faecalis in the urine and the patient remains on IV Zosyn and Diflucan. The chest x-ray showed patchy breath and pulmonary infiltrates yet despite this the patient is not having any significant rest or distress. No significant cough or sputum production. No fever. There is some improvement today's chest exam hoping that this may turn to be in acute lung injury or even fluid overload. The findings however looked to be more patchy specially in the right upper lobe. We'll going to continue to monitor this abnormality. No significant electrolyte disturbance and the hypokalemia. The white cell count is at 18.0. The patient has a IJ triple lumen catheter that will be ultimately switched to a PICC line for IV access and TPN administration. On today's evaluation of a 12/09/2017 the patient is resting comfortably in bed. She was able to sit up on a chair for brief period of time yesterday. NG tube is in place. Output is minimal. Colostomy site is still nonfunctional and there is no output from the colostomy bag. Abdomen is nondistended. Surgical wound site is the same. The patient is still receiving TPN for nutritional support. The plan is to remove the triple-lumen catheter and inserted a PICC line catheter today. The patient remains on Zosyn and Diflucan. The patient is having on and off nausea. No emesis has been noted. No fever or chills. No other significant events overnight. The chest x-ray from today shows improvement in the previously described pulmonary infiltrates. There is improvement in aeration and improvement in the volume status. There is some persistent lower lobe atelectatic changes and interstitial edema bilaterally. General surgeries on the case. No other significant events overnight. Mental status appropriate at this point in time. The net fluid balance is negative for yesterday and today. On 12/10/2017 patient is essentially the same. Unfortunately were not seeing any bowel activity yet. Colostomy site is viable yet there is no output noted. There are bowel sounds are regular was added yesterday. NG tube producing approximately 100 ML's every 8 hours. The patient is afebrile. She is receiving TPN for nutritional support. Surgical wound site is dry clean and intact. Chest x-ray findings are improving and the patient has some limited residual atelectasis/effusion the left lung base. She has a PICC line. He is on IV Zosyn and Diflucan. No altered mentation. No shortness of breath. She is resting comfortably in bed. She is weak. She was able to sit up on a chair yesterday. A flat film of the abdomen was done and showed an overall nonobstructive bowel gas pattern and there was no evidence of ileus or bowel obstruction. On 12/11/2017, the patient is still having limited amount of activity in her colostomy bag. Some minimal amount of liquidy material accumulating. NG tube is in place. Surgical wound site is clean. No active respiratory difficulties or issues for now. Hemodynamically stable. Afebrile. Receiving TPN. Electrolytes are all within normal limits. She is on a combination of Zosyn and Diflucan. Using incentive spirometer. Sitting up on a chair. Her overall weakness is gradually improving. The active issue for now remains the slow recovery of the bowel activity post surgery. On 12/12/2017, the patient is on a surgical floor. Unfortunately minimal amount of output is seen in the colostomy bag. Still on TPN. The abdominal wound is clean. No fever or chills. No other respiratory difficulties. She remains on Zosyn and Diflucan. NG tube is in place. Patient is seen today 12/13/2017 in follow-up on the surgical floor. She remains awake and alert in no acute distress. Maintaining good O2 saturations in the 90s on 2 L/m per nasal cannula. He denies any worsening shortness of breath, cough or congestion. He well with the incentive spirometer. She is up in a chair for several hours today. Still no significant outpatient from the colostomy. NG-tube remains in place. Being nourished via TPN. The patient is seen again today 12/14/2017 in follow-up on the surgical floor. Currently sitting up at the bedside. She is awake and alert in no acute distress. She denies any worsening shortness of breath, cough or congestion. Maintaining O2 saturations in the 90s on 2 L/m per nasal cannula. She's been afebrile. Abdominal x-ray reveals a small left pleural effusion. Abdominal findings compatible with ileus. NG tube remains in place. TPN and lipids continue. Objective - Vital Signs Vital signs: Vital Signs Temp 98.6 F 12/14/17 06:52 Pulse 72 12/14/17 07:52 Resp 20 12/14/17 07:32 BP 136/77 12/14/17 06:52 Pulse Ox 98 12/14/17 06:52 Intake & Output 12/13/17 12/14/17 12/14/17 18:59 06:59 18:59 Intake Total 1211 101 Balance 1211 101 Weight 85.5 kg Intake: IV 101 Amino Acid 5%-D15w+Lytes* 70 E* 1,000 ml @ 70 mls/hr IV .BY DURATION [facility] Rx#: [id number] Fat Emulsion 20% 250 ml 21 In Empty Bag 1 bag @ 21 mls/hr IV DAILY@1600 [facility] Rx#:[id number] Sodium Chloride 0.45% 1, 10 000 ml @ 5 mls/hr IV . Q24H [facility] Rx#:[id number] Intake, IV Titration 1211 Amount Mvi, Adult No.4 with Vit 1011 K 10 ml Trace (Conc-1Ml/ Dose) 1 ml In Amino Acid 5%-D15w+Lytes*E* 1,000 ml @ 70 mls/hr IV .BY DURATION [facility] Rx#: [id number] Potassium Chloride 20 meq 100 In Water For Injection 1 100ml.bag @ 50 mls/hr IVPB ONCE ONE Rx#: [id number] metroNIDAZOLE-NS PMX 500 100 mg In Saline 1 100ml.bag @ 100 mls/hr IVPB Q8HR [facility] Rx#:[id number] Other: Voiding Method Bedpan Bedpan # Voids 1 1 1 ABP, PAP, CO, CI - Last Documented Arterial Blood Pressure 131/70 - Exam No acute distress, awake and alert, nasal O2 in place. The patient has an NG tube in place and output has been only minimally without any significant output from the NG tube. HEENT examination is grossly unremarkable. Mucous membranes are moist. Neck supple. Full range of motion. No adenopathy thyromegaly or neck vein distention. Cardiovascular examination reveals regular rhythm rate. S1-S2 normal. No S3 or S4. No discernible murmur noted. Lungs reveal bilaterally equal breath sounds. Some bilateral coarse rhonchi are noted. No wheezes or crackles. Breath sounds equal bilaterally. Breath sounds are improved. Abdomen soft without bowel sounds. No masses. No tenderness. Fresh colostomy is noted. The patient has a colostomy site is viable. No output is in the colostomy bag. Bowel sounds are hypoactive. No abdominal distention. The patient has sumaya with retention sutures holding the abdominal wound together. Extremities are intact. Examination of the extremities revealed easily palpable radial, femoral and pedal pulses. There was no cyanosis, clubbing or edema. SkinExamination of the skin revealed no evidence of significant rashes, suspicious appearing nevi or other concerning lesions. The wound description as above Neurologic examination is difficult to assess but she moves all 4 extremities well. - Labs CBC & Chem 7: 12/13/17 06:27 12/13/17 06:27 Labs: Abnormal Lab Results - Last 24 Hours (Table) 12/13/17 12/13/17 12/14/17 Range/Units 17:24 23:44 05:16 POC Glucose (mg/dL) 137 H 119 H 110 H (75-99) mg/dL Assessment and Plan Assessment: Assessment 1 operative day 12/01/2017 exp laparotomy, colectomy, lysis of adhesions, diverticular colostomy and ventral hernia repair. Patient remains nothing by mouth. NG tube is in place. Colostomy is viable. Minimal amount of output is noted in the NG tube is in place. The patient on TPN and lipids for nutritional support. Abdominal x-ray findings compatible with ileus. 2 septic shock , recovered. The patient was septic from an anaerobic infection related to ischemic colitis and Bacteroides fragilis was cultured and the blood. 3 enterococcus faecalis in the urine, UTI 4 nonfunctioning colostomy post colectomy and the patient has NG tube in place and the patient is still on TPN for nutritional support. The output in the colostomy bag is still minimal and the NG tube is still in place 5 ischemic right lower extremity/foot, improving and the patient has regained pulses in the right lower extremity and there is no evidence of any gangrenous transformation. The patient's pain in the lower extremities improved and she started gradually putting some weight on once she gets stronger. 6 lactic acidosis, recovered 7 TPN for nutritional support 8 hypertension 9 hypothyroidism 10 acute kidney injury, recovered and the renal function is normalized 11 leukocytosis, improving 12 patchy bilateral pulmonary infiltrates, on today's chest x-ray there is improvement in the volume status and improvement Plan The patient was seen and evaluated by Dr. Parker. She is stable from the pulmonary standpoint. Diminished work well with her incentive spirometer. Still no significant output from the stoma. Abdominal x-ray compatible with ileus. NG tube remains in place. Continue with her current treatment plan. Increase her activity as tolerated. We'll continue to follow. I, the cosigning physician, performed a history & physical examination of the patient. Lungs sounds crackles in the left posterior base. Maintaining good O2 saturations in the 90s on 2 liters per minute per nasal cannula. I discussed the assessment and plan of care with my nurse practitioner, Miranda Ulrich. I attest to the above note as dictated by her.
[2017-12-14 11:23] LABS: Glucose,Whole Blood 103 mg/dL (75-99)
--- NOTE | 2017-12-14 11:26 | P.PN ---
<Elisa Wise - Last Filed: 12/14/17 11:21> Subjective Progress Note Date: 12/14/17 77-year-old female sitting up in a chair this morning continues to report the nasogastric tube is very bothersome. States is not passing as. Small amount of liquid noted from the ostomy. Reports no nausea vomiting. decrease numbness and tingling to the bilateral feet and hands has improved. TPN in progress. Abdominal x-ray reviewed report indicates compatible with ileus. PO no stool noted in the ostomySTOP December 01 diagnostic laparoscopy with lysis of adhesions exploratory laparotomy with partial colectomy mobilization splenic flexure, repair ventral hernia 2 done for severe septic shock suspect ischemic bowel Objective - Vital Signs Vital signs: Vital Signs Temp 98.6 F 12/14/17 06:52 Pulse 72 12/14/17 07:52 Resp 20 12/14/17 07:32 BP 136/77 12/14/17 06:52 Pulse Ox 98 12/14/17 06:52 Intake & Output 12/13/17 12/14/17 12/14/17 18:59 06:59 18:59 Intake Total 1211 101 Balance 1211 101 Weight 85.5 kg Intake: IV 101 Amino Acid 5%-D15w+Lytes* 70 E* 1,000 ml @ 70 mls/hr IV .BY DURATION [facility] Rx#: [id number] Fat Emulsion 20% 250 ml 21 In Empty Bag 1 bag @ 21 mls/hr IV DAILY@1600 [facility] Rx#:[id number] Sodium Chloride 0.45% 1, 10 000 ml @ 5 mls/hr IV . Q24H [facility] Rx#:[id number] Intake, IV Titration 1211 Amount Mvi, Adult No.4 with Vit 1011 K 10 ml Trace (Conc-1Ml/ Dose) 1 ml In Amino Acid 5%-D15w+Lytes*E* 1,000 ml @ 70 mls/hr IV .BY DURATION [facility] Rx#: [id number] Potassium Chloride 20 meq 100 In Water For Injection 1 100ml.bag @ 50 mls/hr IVPB ONCE ONE Rx#: [id number] metroNIDAZOLE-NS PMX 500 100 mg In Saline 1 100ml.bag @ 100 mls/hr IVPB Q8HR [facility] Rx#:[id number] Other: Voiding Method Bedpan Bedpan # Voids 1 1 1 ABP, PAP, CO, CI - Last Documented Arterial Blood Pressure 131/70 - Exam Exam 77-year-old female sitting up in a chair pleasant cooperative talkative tired out just returned from walk Lungs diminished at the bases otherwise adequate air movement no wheezing rales or rhonchi no shortness of breath Heart S1-S2 audible regular Abdomen ostomy stoma pink small amount liquid stool in the ostomy bag no gas [address] suture line well approximated surgical dressing dry nasogastric tube to suction few hypoactive bowel tones is not passing gas is not belching Extremities tips of the fingers dusky and the bottom of the feet increase sensation - Labs CBC & Chem 7: 12/13/17 06:27 12/13/17 06:27 Labs: Abnormal Lab Results - Last 24 Hours (Table) 12/13/17 12/13/17 12/14/17 Range/Units 17:24 23:44 05:16 POC Glucose (mg/dL) 137 H 119 H 110 H (75-99) mg/dL Assessment and Plan Assessment: Impression Acute Septic shock secondary UTI and subsequent ischemic colitis Hypertension 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 Elisa Wise nurse practitioner acting as scribe for signing physician. <Dakota Hutton - Last Filed: 12/14/17 23:03> Objective - Vital Signs Vital signs: Vital Signs Temp 98.7 F 12/14/17 19:21 Pulse 68 12/14/17 20:21 Resp 18 12/14/17 19:21 BP 157/79 12/14/17 19:21 Pulse Ox 94 L 12/14/17 19:21 Intake & Output 12/14/17 12/14/17 12/15/17 06:59 18:59 06:59 Intake Total 1101 Output Total 50 Balance 1101 -50 Weight 86.5 kg Intake: IV 101 Amino Acid 5%-D15w+Lytes* 70 E* 1,000 ml @ 70 mls/hr IV .BY DURATION [facility] Rx#: [id number] Fat Emulsion 20% 250 ml 21 In Empty Bag 1 bag @ 21 mls/hr IV DAILY@1600 [facility] Rx#:[id number] Sodium Chloride 0.45% 1, 10 000 ml @ 5 mls/hr IV . Q24H [facility] Rx#:[id number] Intake, IV Titration 1000 Amount Amino Acid 5%-D15w+Lytes* 1000 E* 1,000 ml @ 70 mls/hr IV .BY DURATION [facility] Rx#: [id number] Output: Gastric Drainage 50 Other: Voiding Method Bedpan Bedpan # Voids 1 1 1 ABP, PAP, CO, CI - Last Documented Arterial Blood Pressure 131/70 - Labs CBC & Chem 7: 12/13/17 06:27 12/13/17 06:27 Labs: Abnormal Lab Results - Last 24 Hours (Table) 12/13/17 12/14/17 12/14/17 Range/Units 23:44 05:16 11:22 POC Glucose (mg/dL) 119 H 110 H 103 H (75-99) mg/dL 12/14/17 Range/Units 18:09 POC Glucose (mg/dL) 110 H (75-99) mg/dL Assessment and Plan Assessment: Patient overall doing better. Only mild pain. Still feels somewhat bloated. Today's x-ray slightly improved. She does have loose bile stained liquid stools in the ostomy appliance at this time. Continue ambulation. Keep nasogastric tube until reevaluation tomorrow. (1) Abdominal pain Current Visit: Yes Status: Acute Code(s): R10.9 - UNSPECIFIED ABDOMINAL PAIN SNOMED Code(s): 58558558
[2017-12-14] MEDS: FAT EMULSION 20% 250 ML in EMPTY BAG 1 BAG IV SCH (15:01)
--- NOTE | 2017-12-14 16:39 | P.PN ---
Subjective Progress Note Date: 12/14/17 Progress note being dictated for Dr. Mayen. Septic shock secondary to ischemic bowel Interval history:Patient is 77-year-old female with a known history of hypertension, hypothyroidism, third-degree heart block with pacemaker, colitis/ stomach ulcer in the 1970s, migraine headache and COPD and multiple other medical problems came to ER with complaints of abdominal discomfort mainly in the lower abdomen and shakiness. Denied any fever. Denied any cough or sputum production. Patient does have chronic cough but no recent changes. No diarrhea. No headache or dizziness. No chest pain or shortness of breath. Denied any hematuria or dysuria. Patient says her symptoms began last night around 9:30 PM. Symptoms are getting worse and patient presently ER for further evaluation. Patient was hypotensive in the ER and was associated with normal saline 4 L and was started on levofed drip. Patient was transferred to MICU for intensive care. Patient has leukocytosis 14.4, lactic acid 5.5 and slightly abnormal urine sample. Patient was started on antibiotics and general surgery was consulted for possible ischemic colon. Chest x-ray diffuse interstitial pattern. Correlate for mild congestion. CT of the abdominal pelvis showed perinephric stranding on the left with bilateral perinephric fluid. Consider pyelonephritis. No obstruction is evident. Diverticulosis without acute diverticulitis of the sigmoid colon. pancreas prominence of the antiemetic duct Within the body and tail of the pancreas. Follow-up ERCP could be considered. Correlate for acute pancreatitis. 12/02/2017 Patient was intubated postoperatively. Patient had exploratory laparotomy with lysis of adhesions, colectomy and colostomy bag placement and as well as ventral hernia repair. Patient is still requiring high doses of Levophed. Continued on IV hydration and monitor EUGENIA's. Patient was found have severe leukocytosis today at 40.8. Vancomycin and Flagyl was added along with Zosyn. ID was consulted. Next a chest x-ray showed mild bibasilar atelectasis and small left-sided pleural effusion. Pulmonary and general surgery and ID following. 12/03/2017 Patient remains on mechanical ventilator today. Still on pressor support and gradually tapering down. Patient also having metabolic acidosis and was started on bicarb as well. Patient was also started on stress test steroids with hydrocortisone. Otherwise continued on norepinephrine. Chest x-ray showed bibasilar atelectasis and small left pleural effusion. Urine culture showed group B enterococcus. WBC count is still elevated at 46.9. Currently on broad-spectrum antibiotics. Creatinine 1.76 12/04/2017 Patient was successfully extubated today. Patient is off pressor support and otherwise receiving hydrocortisone. Chest x-ray showed small fluid overload. Urine culture showed group B enterococcus and blood cultures positive for gram-negative bacilli Patient was also noted to have discoloration of the fingers. Otherwise patient is being continued on antibiotics in the form of vancomycin and Zosyn. Currently patient is still drowsy. 12/05/2017 Patient is awake alert and able to answer simple questions. Complaining of thumb pain. Discoloration improving otherwise. Patient was noted to have ventricular tachycardia last night and was placed on amiodarone drip. Continued on hydrocortisone. Blood pressure is fairly stable. Denied any complaints of chest pain. No nausea vomiting or diarrhea. Urine culture showed enterococcus fecaliths. Blood cultures negative. Sputum culture showed Fatoumata. Pulmonary and cardiology and general surgery is following. Leukocytosis with WBC 29 Review of systems could not be obtained from the patient. Current medications reviewed. 12/06/17 77-year-old admitted secondary to ischemic colitis underwent a laparotomy transverse colectomy found to have diverticulitis as well and had a ventral hernia repair patient is in ICU for septic shock shock improved patient has enterococcus in the urine and gram-negative to anaerobic bacteria in the blood repeat blood cultures were obtained. Patient is on Zosyn to cover the still patient is also on empiric Diflucan vancomycin was discontinued patient is off pressor support patient remains to have an G2 patient does have TPN in place. NG tube is still draining. By the time I evaluated the patient patient received a narcotics for pain because of which the patient is bit sleepy and bit confused although was asking appropriate questions like when her NG tube will be out. Has sluggish bowel sounds on exam. 12/07/2017 Patient the continues to have an G2 no significant improvement compared to yesterday. Patient is on TPN at this time. 12/08/2017 Patient is to have nasogastric tube with the little bit of drainage confusion improved area patient is comparing of nausea. Probably secondary to antibiotics patient is Zosyn and metronidazole. Patient received Lasix with significant improvement in her respiratory status. Patient is urinating well. IJ central line was removed and patient is receiving PICC line. Patient had minimally worsening white blood cell count. Low potassium which will be supplemented secondary to Lasix she received an pulmonary edema improved after Lasix. 12/09/2017 Significant changes clinically overall. Patient still has an NG tube with minimal drainage. Respiratory status did improve sodium has gone down a little bit. Patient's vasospasm and bluish discoloration of the toe secondary to not epinephrine is getting better. Patient is off Nor-epinephrine. 12/10/2017 Patient can use to have NG tube slow and steady improvement. No overnight events. 12/11/2017, the patient is still having limited amount of activity in her colostomy bag. Some minimal amount of liquidy material accumulating. NG tube is in place. Surgical wound site is clean. No active respiratory difficulties or issues for now. Hemodynamically stable. Afebrile. Receiving TPN. Electrolytes are all within normal limits. She is on a combination of Zosyn and Diflucan. Using incentive spirometer. Sitting up on a chair. Her overall weakness is gradually improving. The active issue for now remains the slow recovery of the bowel activity post surgery. 12/12/2017 the patient is on a surgical floor. Unfortunately minimal amount of output is seen in the colostomy bag. Still on TPN. The abdominal wound is clean. No fever or chills. No other respiratory difficulties. She remains on Zosyn and Diflucan. NG tube is in place. 12/13/17 sitting up in chair, small liquidy stool in ostomy, no flatus. NG tube present. No nausea or vomiting. Maintained on TPN. Blood sugars controlled. Reports ambulation of minimal distance yesterday, sensation improving in bilateral hands and feet. Maintaining O2 sats in the high 90s on 2 L nasal cannula. Denies chest pain, palpitations or increasing shortness of breath. Abdominal pain controlled. Afebrile, normal WBC. Maintained on vancomycin, Zosyn, fluconazole, Diflucan. Sodium 134. 12/14/17 NG tube present, complains of nausea without emesis. Abdominal x- ray reporting ileus , resolving small bowel obstruction, possible small left pleural effusion. Not passing flatus, minimal output in colostomy Continues on TPN.lipids. Numbness, tingling of feet and hands improving. One person assist to bedside commode. Minimal ambulation to doorway. Afebrile. Objective - Vital Signs Vital signs: Vital Signs Temp 98.6 F 12/14/17 06:52 Pulse 72 12/14/17 07:52 Resp 20 12/14/17 07:32 BP 136/77 12/14/17 06:52 Pulse Ox 98 12/14/17 06:52 Intake & Output 12/13/17 12/14/17 12/14/17 18:59 06:59 18:59 Intake Total 1211 101 Balance 1211 101 Weight 85.5 kg Intake: IV 101 Amino Acid 5%-D15w+Lytes* 70 E* 1,000 ml @ 70 mls/hr IV .BY DURATION [facility] Rx#: [id number] Fat Emulsion 20% 250 ml 21 In Empty Bag 1 bag @ 21 mls/hr IV DAILY@1600 [facility] Rx#:[id number] Sodium Chloride 0.45% 1, 10 000 ml @ 5 mls/hr IV . Q24H [facility] Rx#:[id number] Intake, IV Titration 1211 Amount Mvi, Adult No.4 with Vit 1011 K 10 ml Trace (Conc-1Ml/ Dose) 1 ml In Amino Acid 5%-D15w+Lytes*E* 1,000 ml @ 70 mls/hr IV .BY DURATION [facility] Rx#: [id number] Potassium Chloride 20 meq 100 In Water For Injection 1 100ml.bag @ 50 mls/hr IVPB ONCE ONE Rx#: [id number] metroNIDAZOLE-NS PMX 500 100 mg In Saline 1 100ml.bag @ 100 mls/hr IVPB Q8HR [facility] Rx#:[id number] Other: Voiding Method Bedpan Bedpan # Voids 1 1 1 ABP, PAP, CO, CI - Last Documented Arterial Blood Pressure 131/70 - Exam PHYSICAL EXAM: VITAL SIGNS: As above GENERAL: Sitting up in chair, no acute distress HEENT: Conjunctivae normal. eyes normal. Oral mucosa dry. NG tube present. NECK: No JVD. No thyroid enlargement. No LNs CARDIOVASCULAR: S1, S2 muffled. No murmur RESPIRATION: Breath sounds diminished in the bases. Occasional scattered coarse rhonchi , no crackles. No wheezing. ABDOMEN: Soft, status post surgery. Colostomy present with small liquid bowel movement, retention sutures present, dressing clean dry and intact, hypoactive bowel sounds. LEGS: No edema. no swelling PSYCHIATRY: Alert and oriented -3, mood and affect normal. NERVOUS SYSTEM: Cranial N 2-12 grossly normal. Moves all 4 limbs. Diffuse weakness No focal deficits. EXTREMITIES: Positive DP and radial pulses, no edema, warm Microbiology 12/06/17 13:52 Blood Blood Culture - Final No Growth after 144 hours 12/08/17 19:40 Catheter Tip Catheter Tip Culture - Final 12/01/17 08:20 Blood Blood Culture Gram Stain - Final 12/01/17 08:20 Blood Blood Culture - Final Bacteroides fragilis 12/02/17 Unknown Sputum Gram Stain - Final 12/02/17 Unknown Sputum Sputum Culture - Final Fatoumata albicans 12/01/17 10:18 Urine,Voided Urine Culture - Final Enterococcus faecalis 12/01/17 08:20 Blood Blood Culture - Final - Labs CBC & Chem 7: 12/13/17 06:27 12/13/17 06:27 Labs: Abnormal Lab Results - Last 24 Hours (Table) 12/13/17 12/13/17 12/14/17 Range/Units 17:24 23:44 05:16 POC Glucose (mg/dL) 137 H 119 H 110 H (75-99) mg/dL Assessment and Plan Assessment: -Septic shock shock resolved secondary to colitis. Bacteroides fragilis bacteremia. UTI with enterococcus faecalis. -Ischemic gangrenous bowel status post resection, diverting colostomy. Postop Ileus. -Hypertension -Hypothyroidism -COPD without any acute exacerbation -History of pacemaker for her history of third-degree heart block: Pacemaker was reevaluated without any problems no issues regarding that now. -Toxic encephalopathy from opiates which resolved. -Fluid overload and pulmonary edema secondary to IV fluids she received which improved with Lasix. -Nor epinephrine induced vasoconstriction , digital ischemia secondary to vasopressors, improved with some residual neuropathic symptoms. Positive pulses , evaluated by vascular surgery with digital vasospasm resolved, pain improving. -TPN for nutritional support Plan: Continue current medication regime ,monitoring and symptomatic treatment. Maintain IV antibiotics as per infectious disease. Increase ambulation as tolerated. Aggressive pulmonary toileting and incentive spirometer reinforced. PT/OT. IV Tylenol added for Pain management. GI and DVT prophylaxis in place with Protonix and heparin subcu. The impression and plan of care has been dictated as directed. : I performed a history and examination of this patient, discussed the same with the dictator. I agree with the dictator's note ,documented as a scribe. Any additional findings or plans will be noted.
[2017-12-14] MEDS: FLUCONAZOLE IN NACL,ISO-OSM 200 MG in SALINE 1 100ML.BAG IVPB SCH (17:47)
[2017-12-14 18:10] LABS: Glucose,Whole Blood 110 mg/dL (75-99)
--- NOTE | 2017-12-14 18:29 | PN ---
PROGRESS NOTE DATE OF SERVICE: 12/14/2017 REASON FOR FOLLOWUP: Abdominal sepsis. INTERVAL HISTORY: The patient is afebrile. She is feeling better. She may have slight output in her colostomy bag. Denies having any chest pain or shortness of breath or cough. No nausea or vomiting. PHYSICAL EXAMINATION: Blood pressure 100/69 with a pulse of 95, temperature 98.9. She is 96% on room air. General description is an elderly female lying in bed in no distress. RESPIRATORY SYSTEM: Unlabored breathing. Clear to auscultation anteriorly. HEART: S1, S2. Regular rate and rhythm. ABDOMEN: Soft. No tenderness. LABS: No new labs been obtained today. DIAGNOSTIC IMPRESSION AND PLAN: Patient with ischemic colitis, status post laparotomy and diverting ostomy, currently on Zosyn and Flagyl and vancomycin, watching her kidney function closely, hopefully switching her to a short course of oral antibiotic on discharge. Continue supportive care. MMODL / IJN: [id number] /
[2017-12-14] MEDS: SODIUM CHLORIDE 0.45% 1,000 ML IV SCH (20:47)
[2017-12-14 23:23] LABS: Glucose,Whole Blood 117 mg/dL (75-99)
[2017-12-15] MEDS: INSULIN ASPART 100 UNIT/ML 1 ML 10 ML VIAL SQ SCH ×4 (00:27→18:36)
[2017-12-15] MEDS: HYDROmorphone 1 MG/ML 1 ML SYRINGE IVP PRN ×4 (04:15→19:15)
[2017-12-15] MEDS: BENZOCAINE/MENTHOL LOZENG 1 EACH LOZENGE MUCOUS MEM PRN ×2 (04:15→08:06)
[2017-12-15] MEDS: ONDANSETRON 4 MG/2 ML VIAL IVP PRN ×3 (04:16→18:13)
[2017-12-15] MEDS: 1: MVI, ADULT NO.4 WITH VIT K 10 ML, TRACE (CONC-1ML/DOSE) 1 ML in AMINO ACID 5%-D15W+LY IV SCH ×3 (04:16)
[2017-12-15 05:47] LABS: Glucose,Whole Blood 109 mg/dL (75-99)
[2017-12-15] MEDS: METOCLOPRAMIDE 5 MG/ML 2 ML VIAL IVP SCH ×4 (05:59→23:53)
[2017-12-15] MEDS: IPRATROPIUM-ALBUTEROL 3 ML NEB INHALATION SCH ×4 (07:43→20:28)
[2017-12-15 07:53] LABS: Basophils # (A) 0.1 k/uL (0-0.2); Basophils % (A) 1 %; Eosinophils # (A) 0.4 k/uL (0-0.7); Eosinophils % (A) 4 %; HCT 30.5 % (34.0-46.0); HGB 9.6 gm/dL (11.4-16.0); Lymphocytes # (A) 0.9 k/uL (1.0-4.8); Lymphocytes % (A) 8 %; MCH 29.7 pg (25.0-35.0); MCHC 31.3 g/dL (31.0-37.0); MCV 94.7 fL (80.0-100.0); Mean Platelet Volume 7.3; Monocytes # (A) 1.1 k/uL (0-1.0); Monocytes % (A) 11 %; Neutrophils # (A) 7.5 k/uL (1.3-7.7); Neutrophils % (A) 73 %; Platelet Count 401 k/uL (150-450); RBC 3.22 m/uL (3.80-5.40); RDW 14.7 % (11.5-15.5); WBC 10.2 k/uL (3.8-10.6)
[2017-12-15 08:04] LABS: Albumin 2.3 g/dL (3.5-5.0); Calcium 8.4 mg/dL (8.4-10.2); Magnesium 1.7 mg/dL (1.6-2.3); Potassium 3.7 mmol/L (3.5-5.1); Total Bilirubin 0.6 mg/dL (0.2-1.3)
[2017-12-15] MEDS: PIPERACILLIN-TAZOBACTAM 3.375 GM in DEXTROSE/WATER 1 50ML.BAG IVPB SCH ×3 (08:09→23:52)
[2017-12-15] MEDS: VANCOMYCIN 1,500 MG in SODIUM CHLORIDE 0.9% 250 ML IVPB SCH ×2 (08:10→15:00)
[2017-12-15] MEDS ORDERED: Potassium Replacement Protocol 1 EACH MISC MISCELLANE PRN (09:12)
[2017-12-15] MEDS ORDERED: Magnesium Replacement Protocol 1 EACH MISC MISCELLANE PRN ×2 (09:12→11:31)
[2017-12-15] MEDS: metroNIDAZOLE-NS PMX 500 MG in SALINE 1 100ML.BAG IVPB SCH ×3 (09:55→23:52)
[2017-12-15] MEDS: HEPARIN SODIUM,PORCINE 5,000 UNIT/ML 1 ML VIAL SQ SCH ×2 (09:55→20:58)
[2017-12-15] MEDS: PANTOPRAZOLE 40 MG/10 ML VIAL IV SCH (09:56)
[2017-12-15] MEDS: LEVOTHYROXINE IVP 100 MCG/5 ML VIAL IV SCH (09:59)
[2017-12-15] MEDS: POTASSIUM CHLORIDE 10 MEQ in WATER FOR INJECTION 1 100ML.BAG IVPB SCH ×2 (11:45→12:46)
[2017-12-15] MEDS ORDERED: VANCOMYCIN TROUGH DUE 1 EACH MISC MISCELLANE ONE (13:00)
--- NOTE | 2017-12-15 13:04 | P.PN ---
<Wen Wisene Kalyani - Last Filed: 12/15/17 13:12> Subjective Progress Note Date: 12/15/17 77-year-old female sitting up in bed. Apparently the nasogastric tube fell out this morning states she's not sure how that happened. a moderate amount of brown stool in the ostomy tolerating ice chips reports no nausea vomiting surgical dressing dry patient is asking for diet to be started December 01 diagnostic laparoscopy with lysis of adhesions exploratory laparotomy with partial colectomy mobilization splenic flexure, repair ventral hernia 2 done for severe septic shock suspect ischemic bowel Objective - Vital Signs Vital signs: Vital Signs Temp 98.3 F 12/15/17 07:51 Pulse 76 12/15/17 07:54 Resp 16 12/15/17 07:51 BP 145/72 12/15/17 07:51 Pulse Ox 94 L 12/15/17 07:51 Intake & Output 12/14/17 12/15/17 12/15/17 18:59 06:59 18:59 Intake Total 1011 Output Total 50 10 Balance 961 -10 Weight 86.5 kg Intake: Intake, IV Titration 1011 Amount Mvi, Adult No.4 with Vit 1011 K 10 ml Trace (Conc-1Ml/ Dose) 1 ml In Amino Acid 5%-D15w+Lytes*E* 1,000 ml @ 70 mls/hr IV .BY DURATION [facility] Rx#: [id number] Output: Gastric Drainage 50 Stool 10 Other: Voiding Method Bedpan # Voids 1 2 ABP, PAP, CO, CI - Last Documented Arterial Blood Pressure 131/70 - Exam Exam 77-year-old female sitting up in bed pleasant cooperative talkative Lungs diminished at the bases otherwise adequate air movement no wheezing rales or rhonchi no shortness of breath on room air Heart S1-S2 audible regular Abdomen ostomy stoma moderate amount of liquid brown stool in the ostomy bag with gas [address] suture line well approximated surgical dressing dry tolerating ice chips clear liquids no nausea no vomiting Extremities trace pedal edema - Labs CBC & Chem 7: 12/15/17 07:17 12/15/17 07:17 Labs: Abnormal Lab Results - Last 24 Hours (Table) 12/14/17 12/14/17 12/15/17 Range/Units 18:09 23:21 05:45 RBC (3.80-5.40) m/uL Hgb (11.4-16.0) gm/dL Hct (34.0-46.0) % Lymphocytes # (1.0-4.8) k/uL Monocytes # (0-1.0) k/uL Sodium (137-145) mmol/L Glucose (74-99) mg/dL POC Glucose (mg/dL) 110 H 117 H 109 H (75-99) mg/dL Alkaline Phosphatase (38-126) U/L Total Protein (6.3-8.2) g/dL Albumin (3.5-5.0) g/dL 12/15/17 12/15/17 Range/Units 07:17 07:17 RBC 3.22 L (3.80-5.40) m/uL Hgb 9.6 L (11.4-16.0) gm/dL Hct 30.5 L (34.0-46.0) % Lymphocytes # 0.9 L (1.0-4.8) k/uL Monocytes # 1.1 H (0-1.0) k/uL Sodium 135 L (137-145) mmol/L Glucose 103 H (74-99) mg/dL POC Glucose (mg/dL) (75-99) mg/dL Alkaline Phosphatase 138 H (38-126) U/L Total Protein 5.0 L (6.3-8.2) g/dL Albumin 2.3 L (3.5-5.0) g/dL Assessment and Plan Assessment: Impression Acute Septic shock secondary UTI and subsequent ischemic colitis Hypertension Ischemic gangrenous bowel status post resection with ostomy Present on admission abdominal pain suspect due to ischemic colitis bacteroides fragilis bacteremia Leukocytosis improving Abdominal x-ray 12/14 suggestive of an ileus not ruled out Resolving small bowel obstruction Toxic encephalopathy opiate which has resolved Plan Antibiotics per infectious disease Continue postop surgical care Start clear liquid diet Continue TPN as ordered PT OT eval Increase activity Pain control Will follow with you The above impression and plan of care have been discussed and directed by signing physician. Elisa Wise nurse practitioner acting as scribe for signing physician. <Dakota Hutton - Last Filed: 12/15/17 22:27> Objective - Vital Signs Vital signs: Vital Signs Temp 98.7 F 12/15/17 19:00 Pulse 75 12/15/17 20:10 Resp 15 12/15/17 20:10 BP 141/68 12/15/17 19:00 Pulse Ox 94 L 12/15/17 19:00 Intake & Output 12/15/17 12/15/17 12/16/17 06:59 18:59 06:59 Intake Total 710 Output Total 20 150 Balance 690 -150 Intake: IV 510 Amino Acid 5%-D15w+Lytes* 420 E* 1,000 ml @ 70 mls/hr IV .BY DURATION [facility] Rx#: [id number] Piperacillin-Tazobactam 3 50 .375 gm In Dextrose/Water 1 50ml.bag @ 12.5 mls/hr IVPB Q8HR [facility] Rx#: [id number] Sodium Chloride 0.45% 1, 40 000 ml @ 5 mls/hr IV . Q24H [facility] Rx#:[id number] Intake, IV Titration 200 Amount Potassium Chloride 10 meq 200 In Water For Injection 1 100ml.bag @ 100 mls/hr IVPB Q1H [facility] Rx#: [id number] Output: Stool 20 150 Other: Voiding Method Bedpan Bedpan # Voids 2 2 1 # Bowel Movements 1 ABP, PAP, CO, CI - Last Documented Arterial Blood Pressure 131/70 - Labs CBC & Chem 7: 12/15/17 07:17 12/15/17 07:17 Labs: Abnormal Lab Results - Last 24 Hours (Table) 12/14/17 12/15/17 12/15/17 Range/Units 23:21 05:45 07:17 RBC (3.80-5.40) m/uL Hgb (11.4-16.0) gm/dL Hct (34.0-46.0) % Lymphocytes # (1.0-4.8) k/uL Monocytes # (0-1.0) k/uL Sodium 135 L (137-145) mmol/L Glucose 103 H (74-99) mg/dL POC Glucose (mg/dL) 117 H 109 H (75-99) mg/dL Alkaline Phosphatase 138 H (38-126) U/L Total Protein 5.0 L (6.3-8.2) g/dL Albumin 2.3 L (3.5-5.0) g/dL 12/15/17 12/15/17 Range/Units 07:17 13:28 RBC 3.22 L (3.80-5.40) m/uL Hgb 9.6 L (11.4-16.0) gm/dL Hct 30.5 L (34.0-46.0) % Lymphocytes # 0.9 L (1.0-4.8) k/uL Monocytes # 1.1 H (0-1.0) k/uL Sodium (137-145) mmol/L Glucose (74-99) mg/dL POC Glucose (mg/dL) 128 H (75-99) mg/dL Alkaline Phosphatase (38-126) U/L Total Protein (6.3-8.2) g/dL Albumin (3.5-5.0) g/dL Assessment and Plan Assessment: As above. Patient doing better. Energy seems improved. She is having better ostomy function. Nasogastric tube actually fell accidentally earlier today. We 'll maintain clear liquids for now. Continue physical therapy. (1) Abdominal pain Current Visit: Yes Status: Acute Code(s): R10.9 - UNSPECIFIED ABDOMINAL PAIN SNOMED Code(s): 81006953
[2017-12-15 13:30] LABS: Glucose,Whole Blood 128 mg/dL (75-99)
--- NOTE | 2017-12-15 13:53 | P.PN ---
Subjective Progress Note Date: 12/15/17 Principal diagnosis: Shock, secondary to anaerobic infection related to ischemic colitis. recovered. On today's evaluation of 12/06/2017, the patient is awake and alert. NG tube is in place. The patient has been nothing by mouth for the past 5 days as the patient underwent a extensive laparotomy, transverse colectomy, diverticulitis to ri, repair of a ventral hernia 2. The patient came in with septic condition related to an underlying enterococcal urine checked infection subsequently she developed abdominal pain and presentation was typical of ischemic colitis. The patient underwent expiratory laparotomy in that regard. She was severely hemodynamics unstable and the patient required high doses of pressors and IV fluids and ultimately she improved to the point where she is currently off pressors. She developed some ischemia in the right foot and she is complaining of pain in the right lower extremity. This ischemia related to severe hypotension and use of high dose of pressors. At this point in time the skin is mottled and there is some areas of ecchymosis nevertheless the patient has adequate pulses in lower extremities bilaterally and vascular surgery evaluated the limbs. No signs of any gangrenous changes at this point in time. The patient currently extubated. The patient is currently on oxygen by nasal cannula. No respiratory distress. No cough or sputum production. No abdominal pain. The colostomy site is still nonfunctional. The tissue itself is viable and bowel sounds are absent at this point in time. TPN is being considered by general surgery. Antibiotic coverage includes IV Diflucan and IV Zosyn. The most recent blood cultures showing anaerobic growth in the blood probably of a intra-abdominal source and the urine cultures showing enterococcus faecalis, penicillin sensitive. The patient remains on IV Zosyn. The sputum is showing Fatoumata which is a colonizer. The chest x-ray from today shows a upper lobe infiltrate and left retrocardiac infiltration. No other abnormalities otherwise noted. On today's evaluation of a 2017, the patient is still awake and alert. She remains nothing by mouth. No bowel sounds. No bowel activity. Colostomy site is viable. There is no output within the colostomy bag. Bowel sounds are absent. NG tube is in place. Output from the NG tube has been to 50 mL for yesterday. The patient's net fluid balance is +6 26 mL over the past 24 hours. TPN was started yesterday for nutritional support. Noted the patient was septic. She has a enterococcus faecalis in the urine and anaerobic gram- negative bacillus and the blood and the patient remains on same antibiotic coverage including a combination of Zosyn and Diflucan. Furthermore, the chest x-ray from today shows development of patchy breath and pulmonary infiltrates. There is a right upper lobe infiltration left lower lobe infiltration which raises the concern for a superimposed pneumonia was at its ventilator as. Rule out healthcare associated or aspiration type. The patient has a congested cough. Unable to bring up much sputum. At this point in time, she is on oxygen at 2 L/m nasal cannula and his saturations around 95%. She is not spiking a fever and her white cell count is down to 13. Also, she still complaining of pain in lower extremity and she has decent pulses in lower extremities bilaterally. No altered mentation. No other significant events overnight. On 12/08/2017 patient is being seen for a follow-up. The patient awake and alert. NG tube is in place. Output has been around 300 mL for the past 24 hours and the patient is having on and off nausea. Remains nothing by mouth on TPN. The colostomy still nonfunctional and there is no output within the colostomy bag. On examination the patient has a normal abdominal wound and has some sluggish bowel sounds. She is receiving TPN for nutritional support. I give her a dose of Lasix and she is in a negative fluid balance as the patient is producing adequate amount of urine output and the net fluid balance is -7.3 L. She is producing more than 100 mL an hour of urine output and her potassium was dropped and is being replaced for now. Note that the blood culture came back positive for Bacteroides fragilis and the patient has Enterococcus faecalis in the urine and the patient remains on IV Zosyn and Diflucan. The chest x-ray showed patchy breath and pulmonary infiltrates yet despite this the patient is not having any significant rest or distress. No significant cough or sputum production. No fever. There is some improvement today's chest exam hoping that this may turn to be in acute lung injury or even fluid overload. The findings however looked to be more patchy specially in the right upper lobe. We'll going to continue to monitor this abnormality. No significant electrolyte disturbance and the hypokalemia. The white cell count is at 18.0. The patient has a IJ triple lumen catheter that will be ultimately switched to a PICC line for IV access and TPN administration. On today's evaluation of a 12/09/2017 the patient is resting comfortably in bed. She was able to sit up on a chair for brief period of time yesterday. NG tube is in place. Output is minimal. Colostomy site is still nonfunctional and there is no output from the colostomy bag. Abdomen is nondistended. Surgical wound site is the same. The patient is still receiving TPN for nutritional support. The plan is to remove the triple-lumen catheter and inserted a PICC line catheter today. The patient remains on Zosyn and Diflucan. The patient is having on and off nausea. No emesis has been noted. No fever or chills. No other significant events overnight. The chest x-ray from today shows improvement in the previously described pulmonary infiltrates. There is improvement in aeration and improvement in the volume status. There is some persistent lower lobe atelectatic changes and interstitial edema bilaterally. General surgeries on the case. No other significant events overnight. Mental status appropriate at this point in time. The net fluid balance is negative for yesterday and today. On 12/10/2017 patient is essentially the same. Unfortunately were not seeing any bowel activity yet. Colostomy site is viable yet there is no output noted. There are bowel sounds are regular was added yesterday. NG tube producing approximately 100 ML's every 8 hours. The patient is afebrile. She is receiving TPN for nutritional support. Surgical wound site is dry clean and intact. Chest x-ray findings are improving and the patient has some limited residual atelectasis/effusion the left lung base. She has a PICC line. He is on IV Zosyn and Diflucan. No altered mentation. No shortness of breath. She is resting comfortably in bed. She is weak. She was able to sit up on a chair yesterday. A flat film of the abdomen was done and showed an overall nonobstructive bowel gas pattern and there was no evidence of ileus or bowel obstruction. On 12/11/2017, the patient is still having limited amount of activity in her colostomy bag. Some minimal amount of liquidy material accumulating. NG tube is in place. Surgical wound site is clean. No active respiratory difficulties or issues for now. Hemodynamically stable. Afebrile. Receiving TPN. Electrolytes are all within normal limits. She is on a combination of Zosyn and Diflucan. Using incentive spirometer. Sitting up on a chair. Her overall weakness is gradually improving. The active issue for now remains the slow recovery of the bowel activity post surgery. On 12/12/2017, the patient is on a surgical floor. Unfortunately minimal amount of output is seen in the colostomy bag. Still on TPN. The abdominal wound is clean. No fever or chills. No other respiratory difficulties. She remains on Zosyn and Diflucan. NG tube is in place. Patient is seen today 12/13/2017 in follow-up on the surgical floor. She remains awake and alert in no acute distress. Maintaining good O2 saturations in the 90s on 2 L/m per nasal cannula. He denies any worsening shortness of breath, cough or congestion. He well with the incentive spirometer. She is up in a chair for several hours today. Still no significant outpatient from the colostomy. NG-tube remains in place. Being nourished via TPN. The patient is seen again today 12/14/2017 in follow-up on the surgical floor. Currently sitting up at the bedside. She is awake and alert in no acute distress. She denies any worsening shortness of breath, cough or congestion. Maintaining O2 saturations in the 90s on 2 L/m per nasal cannula. She's been afebrile. Abdominal x-ray reveals a small left pleural effusion. Abdominal findings compatible with ileus. NG tube remains in place. TPN and lipids continue. The patient is seen again today 12/15/2017 in follow-up on the surgical floor. She remains awake and alert in no acute distress. Maintaining good O2 saturations in the 90s on room air. Her NG tube was inadvertently removed. She does have some nausea but declines to have it reinserted. She does now have a moderate amount of brown stool in the ostomy. Positive bowel sounds. White count 10.2. Hemoglobin 9.6. Creatinine 0.79. Objective - Vital Signs Vital signs: Vital Signs Temp 98.3 F 12/15/17 07:51 Pulse 76 12/15/17 07:54 Resp 16 12/15/17 07:51 BP 145/72 12/15/17 07:51 Pulse Ox 94 L 12/15/17 07:51 Intake & Output 12/14/17 12/15/17 12/15/17 18:59 06:59 18:59 Intake Total 1011 Output Total 50 10 Balance 961 -10 Weight 86.5 kg Intake: Intake, IV Titration 1011 Amount Mvi, Adult No.4 with Vit 1011 K 10 ml Trace (Conc-1Ml/ Dose) 1 ml In Amino Acid 5%-D15w+Lytes*E* 1,000 ml @ 70 mls/hr IV .BY DURATION [facility] Rx#: [id number] Output: Gastric Drainage 50 Stool 10 Other: Voiding Method Bedpan # Voids 1 2 ABP, PAP, CO, CI - Last Documented Arterial Blood Pressure 131/70 - Exam No acute distress, awake and alert, nasal O2 in place. The patient has an NG tube in place and output has been only minimally without any significant output from the NG tube. HEENT examination is grossly unremarkable. Mucous membranes are moist. Neck supple. Full range of motion. No adenopathy thyromegaly or neck vein distention. Cardiovascular examination reveals regular rhythm rate. S1-S2 normal. No S3 or S4. No discernible murmur noted. Lungs reveal bilaterally equal breath sounds. Some bilateral coarse rhonchi are noted. No wheezes or crackles. Breath sounds equal bilaterally. Breath sounds are improved. Abdomen soft without bowel sounds. No masses. No tenderness. Fresh colostomy is noted. The patient has a colostomy site is viable. Moderate amount of soft brown stool is in the colostomy bag. Bowel sounds are active. No abdominal distention. The patient has sumaya with retention sutures holding the abdominal wound together. Extremities are intact. Examination of the extremities revealed easily palpable radial, femoral and pedal pulses. There was no cyanosis, clubbing or edema. SkinExamination of the skin revealed no evidence of significant rashes, suspicious appearing nevi or other concerning lesions. The wound description as above Neurologic examination is difficult to assess but she moves all 4 extremities well. - Labs CBC & Chem 7: 12/15/17 07:17 12/15/17 07:17 Labs: Abnormal Lab Results - Last 24 Hours (Table) 12/14/17 12/14/17 12/15/17 Range/Units 18:09 23:21 05:45 RBC (3.80-5.40) m/uL Hgb (11.4-16.0) gm/dL Hct (34.0-46.0) % Lymphocytes # (1.0-4.8) k/uL Monocytes # (0-1.0) k/uL Sodium (137-145) mmol/L Glucose (74-99) mg/dL POC Glucose (mg/dL) 110 H 117 H 109 H (75-99) mg/dL Alkaline Phosphatase (38-126) U/L Total Protein (6.3-8.2) g/dL Albumin (3.5-5.0) g/dL 12/15/17 12/15/17 12/15/17 Range/Units 07:17 07:17 13:28 RBC 3.22 L (3.80-5.40) m/uL Hgb 9.6 L (11.4-16.0) gm/dL Hct 30.5 L (34.0-46.0) % Lymphocytes # 0.9 L (1.0-4.8) k/uL Monocytes # 1.1 H (0-1.0) k/uL Sodium 135 L (137-145) mmol/L Glucose 103 H (74-99) mg/dL POC Glucose (mg/dL) 128 H (75-99) mg/dL Alkaline Phosphatase 138 H (38-126) U/L Total Protein 5.0 L (6.3-8.2) g/dL Albumin 2.3 L (3.5-5.0) g/dL Assessment and Plan Assessment: Assessment 1 operative day 12/01/2017 exp laparotomy, colectomy, lysis of adhesions, diverticular colostomy and ventral hernia repair. Patient remains nothing by mouth. NG tube is in place. Colostomy is viable. Minimal amount of output is noted in the NG tube is in place. The patient on TPN and lipids for nutritional support. Abdominal x-ray findings compatible with ileus. 2 septic shock , recovered. The patient was septic from an anaerobic infection related to ischemic colitis and Bacteroides fragilis was cultured and the blood. 3 enterococcus faecalis in the urine, UTI 4 nonfunctioning colostomy post colectomy and the patient has NG tube in place and the patient is still on TPN for nutritional support. The output in the colostomy bag is still minimal and the NG tube is still in place 5 ischemic right lower extremity/foot, improving and the patient has regained pulses in the right lower extremity and there is no evidence of any gangrenous transformation. The patient's pain in the lower extremities improved and she started gradually putting some weight on once she gets stronger. 6 lactic acidosis, recovered 7 TPN for nutritional support 8 hypertension 9 hypothyroidism 10 acute kidney injury, recovered and the renal function is normalized 11 leukocytosis, improving 12 patchy bilateral pulmonary infiltrates, on today's chest x-ray there is improvement in the volume status and improvement Plan The patient was seen and evaluated by Dr. Parker. She is stable from the pulmonary standpoint. Continues to work well with her incentive spirometer. Increase her activity as tolerated. We will follow with the patient on as- needed basis. I, the cosigning physician, performed a history & physical examination of the patient. Lungs sounds crackles in the left posterior base. Maintaining good O2 saturations in the 90s on room air. I discussed the assessment and plan of care with my nurse practitioner, Miranda Ulrich. I attest to the above note as dictated by her.
[2017-12-15] MEDS: MAGNESIUM SULFATE-D5W PMX 1 GM in DEXTROSE/WATER 1 100ML.BAG IVPB SCH ×2 (15:00→18:09)
--- NOTE | 2017-12-15 15:25 | P.PN ---
Subjective Progress Note Date: 12/15/17 Progress note being dictated for Dr. Mayen. Septic shock secondary to ischemic bowel Interval history:Patient is 77-year-old female with a known history of hypertension, hypothyroidism, third-degree heart block with pacemaker, colitis/ stomach ulcer in the 1970s, migraine headache and COPD and multiple other medical problems came to ER with complaints of abdominal discomfort mainly in the lower abdomen and shakiness. Denied any fever. Denied any cough or sputum production. Patient does have chronic cough but no recent changes. No diarrhea. No headache or dizziness. No chest pain or shortness of breath. Denied any hematuria or dysuria. Patient says her symptoms began last night around 9:30 PM. Symptoms are getting worse and patient presently ER for further evaluation. Patient was hypotensive in the ER and was associated with normal saline 4 L and was started on levofed drip. Patient was transferred to MICU for intensive care. Patient has leukocytosis 14.4, lactic acid 5.5 and slightly abnormal urine sample. Patient was started on antibiotics and general surgery was consulted for possible ischemic colon. Chest x-ray diffuse interstitial pattern. Correlate for mild congestion. CT of the abdominal pelvis showed perinephric stranding on the left with bilateral perinephric fluid. Consider pyelonephritis. No obstruction is evident. Diverticulosis without acute diverticulitis of the sigmoid colon. pancreas prominence of the antiemetic duct Within the body and tail of the pancreas. Follow-up ERCP could be considered. Correlate for acute pancreatitis. 12/02/2017 Patient was intubated postoperatively. Patient had exploratory laparotomy with lysis of adhesions, colectomy and colostomy bag placement and as well as ventral hernia repair. Patient is still requiring high doses of Levophed. Continued on IV hydration and monitor EUGENIA's. Patient was found have severe leukocytosis today at 40.8. Vancomycin and Flagyl was added along with Zosyn. ID was consulted. Next a chest x-ray showed mild bibasilar atelectasis and small left-sided pleural effusion. Pulmonary and general surgery and ID following. 12/03/2017 Patient remains on mechanical ventilator today. Still on pressor support and gradually tapering down. Patient also having metabolic acidosis and was started on bicarb as well. Patient was also started on stress test steroids with hydrocortisone. Otherwise continued on norepinephrine. Chest x-ray showed bibasilar atelectasis and small left pleural effusion. Urine culture showed group B enterococcus. WBC count is still elevated at 46.9. Currently on broad-spectrum antibiotics. Creatinine 1.76 12/04/2017 Patient was successfully extubated today. Patient is off pressor support and otherwise receiving hydrocortisone. Chest x-ray showed small fluid overload. Urine culture showed group B enterococcus and blood cultures positive for gram-negative bacilli Patient was also noted to have discoloration of the fingers. Otherwise patient is being continued on antibiotics in the form of vancomycin and Zosyn. Currently patient is still drowsy. 12/05/2017 Patient is awake alert and able to answer simple questions. Complaining of thumb pain. Discoloration improving otherwise. Patient was noted to have ventricular tachycardia last night and was placed on amiodarone drip. Continued on hydrocortisone. Blood pressure is fairly stable. Denied any complaints of chest pain. No nausea vomiting or diarrhea. Urine culture showed enterococcus fecaliths. Blood cultures negative. Sputum culture showed Fatoumata. Pulmonary and cardiology and general surgery is following. Leukocytosis with WBC 29 Review of systems could not be obtained from the patient. Current medications reviewed. 12/06/17 77-year-old admitted secondary to ischemic colitis underwent a laparotomy transverse colectomy found to have diverticulitis as well and had a ventral hernia repair patient is in ICU for septic shock shock improved patient has enterococcus in the urine and gram-negative to anaerobic bacteria in the blood repeat blood cultures were obtained. Patient is on Zosyn to cover the still patient is also on empiric Diflucan vancomycin was discontinued patient is off pressor support patient remains to have an G2 patient does have TPN in place. NG tube is still draining. By the time I evaluated the patient patient received a narcotics for pain because of which the patient is bit sleepy and bit confused although was asking appropriate questions like when her NG tube will be out. Has sluggish bowel sounds on exam. 12/07/2017 Patient the continues to have an G2 no significant improvement compared to yesterday. Patient is on TPN at this time. 12/08/2017 Patient is to have nasogastric tube with the little bit of drainage confusion improved area patient is comparing of nausea. Probably secondary to antibiotics patient is Zosyn and metronidazole. Patient received Lasix with significant improvement in her respiratory status. Patient is urinating well. IJ central line was removed and patient is receiving PICC line. Patient had minimally worsening white blood cell count. Low potassium which will be supplemented secondary to Lasix she received an pulmonary edema improved after Lasix. 12/09/2017 Significant changes clinically overall. Patient still has an NG tube with minimal drainage. Respiratory status did improve sodium has gone down a little bit. Patient's vasospasm and bluish discoloration of the toe secondary to not epinephrine is getting better. Patient is off Nor-epinephrine. 12/10/2017 Patient can use to have NG tube slow and steady improvement. No overnight events. 12/11/2017, the patient is still having limited amount of activity in her colostomy bag. Some minimal amount of liquidy material accumulating. NG tube is in place. Surgical wound site is clean. No active respiratory difficulties or issues for now. Hemodynamically stable. Afebrile. Receiving TPN. Electrolytes are all within normal limits. She is on a combination of Zosyn and Diflucan. Using incentive spirometer. Sitting up on a chair. Her overall weakness is gradually improving. The active issue for now remains the slow recovery of the bowel activity post surgery. 12/12/2017 the patient is on a surgical floor. Unfortunately minimal amount of output is seen in the colostomy bag. Still on TPN. The abdominal wound is clean. No fever or chills. No other respiratory difficulties. She remains on Zosyn and Diflucan. NG tube is in place. 12/13/17 sitting up in chair, small liquidy stool in ostomy, no flatus. NG tube present. No nausea or vomiting. Maintained on TPN. Blood sugars controlled. Reports ambulation of minimal distance yesterday, sensation improving in bilateral hands and feet. Maintaining O2 sats in the high 90s on 2 L nasal cannula. Denies chest pain, palpitations or increasing shortness of breath. Abdominal pain controlled. Afebrile, normal WBC. Maintained on vancomycin, Zosyn, fluconazole, Diflucan. Sodium 134. 12/14/17 NG tube present, complains of nausea without emesis. Abdominal x- ray reporting ileus , resolving small bowel obstruction, possible small left pleural effusion. Not passing flatus, minimal output in colostomy Continues on TPN.lipids. Numbness, tingling of feet and hands improving. One person assist to bedside commode. Minimal ambulation to doorway. Afebrile. 12/15/2017 NG tube accidentally pulled out this morning. Increased ostomy output. Passing flatus. Tolerating popsicles with no nausea or vomiting. Ambulating into hallway with assistance. Foot pain improving. Abdominal pain controlled. Objective - Vital Signs Vital signs: Vital Signs Temp 98.3 F 12/15/17 07:51 Pulse 76 12/15/17 07:54 Resp 16 12/15/17 07:51 BP 145/72 12/15/17 07:51 Pulse Ox 94 L 12/15/17 07:51 Intake & Output 12/14/17 12/15/17 12/15/17 18:59 06:59 18:59 Intake Total 1011 710 Output Total 50 10 Balance 961 700 Weight 86.5 kg Intake: IV 510 Amino Acid 5%-D15w+Lytes* 420 E* 1,000 ml @ 70 mls/hr IV .BY DURATION [facility] Rx#: [id number] Piperacillin-Tazobactam 3 50 .375 gm In Dextrose/Water 1 50ml.bag @ 12.5 mls/hr IVPB Q8HR [facility] Rx#: [id number] Sodium Chloride 0.45% 1, 40 000 ml @ 5 mls/hr IV . Q24H [facility] Rx#:[id number] Intake, IV Titration 1011 200 Amount Mvi, Adult No.4 with Vit 1011 K 10 ml Trace (Conc-1Ml/ Dose) 1 ml In Amino Acid 5%-D15w+Lytes*E* 1,000 ml @ 70 mls/hr IV .BY DURATION [facility] Rx#: [id number] Potassium Chloride 10 meq 200 In Water For Injection 1 100ml.bag @ 100 mls/hr IVPB Q1H [facility] Rx#: [id number] Output: Gastric Drainage 50 Stool 10 Other: Voiding Method Bedpan # Voids 1 2 2 ABP, PAP, CO, CI - Last Documented Arterial Blood Pressure 131/70 - Exam PHYSICAL EXAM: VITAL SIGNS: As above GENERAL: Sitting up in chair, no acute distress HEENT: Conjunctivae normal. eyes normal. Oral mucosa moist NECK: No JVD. No thyroid enlargement. No LNs CARDIOVASCULAR: S1, S2 muffled. No murmur RESPIRATION: Breath sounds diminished in the bases. No rhonchi , no crackles. No wheezing. ABDOMEN: Soft, status post surgery. Colostomy present with moderate liquid bowel movement, retention sutures present, dressing clean dry and intact, hypoactive bowel sounds. LEGS: No edema. no swelling PSYCHIATRY: Alert and oriented -3, mood and affect normal. NERVOUS SYSTEM: Cranial N 2-12 grossly normal. Moves all 4 limbs. Diffuse weakness No focal deficits. EXTREMITIES: Positive DP and radial pulses, no edema, warm Microbiology 12/06/17 13:52 Blood Blood Culture - Final No Growth after 144 hours 12/08/17 19:40 Catheter Tip Catheter Tip Culture - Final 12/01/17 08:20 Blood Blood Culture Gram Stain - Final 12/01/17 08:20 Blood Blood Culture - Final Bacteroides fragilis 12/02/17 Unknown Sputum Gram Stain - Final 12/02/17 Unknown Sputum Sputum Culture - Final Fatoumata albicans 12/01/17 10:18 Urine,Voided Urine Culture - Final Enterococcus faecalis 12/01/17 08:20 Blood Blood Culture - Final - Labs CBC & Chem 7: 12/15/17 07:17 12/15/17 07:17 Labs: Abnormal Lab Results - Last 24 Hours (Table) 12/14/17 12/14/17 12/15/17 Range/Units 18:09 23:21 05:45 RBC (3.80-5.40) m/uL Hgb (11.4-16.0) gm/dL Hct (34.0-46.0) % Lymphocytes # (1.0-4.8) k/uL Monocytes # (0-1.0) k/uL Sodium (137-145) mmol/L Glucose (74-99) mg/dL POC Glucose (mg/dL) 110 H 117 H 109 H (75-99) mg/dL Alkaline Phosphatase (38-126) U/L Total Protein (6.3-8.2) g/dL Albumin (3.5-5.0) g/dL 12/15/17 12/15/17 12/15/17 Range/Units 07:17 07:17 13:28 RBC 3.22 L (3.80-5.40) m/uL Hgb 9.6 L (11.4-16.0) gm/dL Hct 30.5 L (34.0-46.0) % Lymphocytes # 0.9 L (1.0-4.8) k/uL Monocytes # 1.1 H (0-1.0) k/uL Sodium 135 L (137-145) mmol/L Glucose 103 H (74-99) mg/dL POC Glucose (mg/dL) 128 H (75-99) mg/dL Alkaline Phosphatase 138 H (38-126) U/L Total Protein 5.0 L (6.3-8.2) g/dL Albumin 2.3 L (3.5-5.0) g/dL Assessment and Plan Assessment: -Septic shock shock resolved secondary to colitis. Bacteroides fragilis bacteremia. UTI with enterococcus faecalis. -Ischemic gangrenous bowel status post resection, diverting colostomy. Postop Ileus. -Hypertension -Hypothyroidism -COPD without any acute exacerbation -History of pacemaker for her history of third-degree heart block: Pacemaker was reevaluated without any problems no issues regarding that currently -Toxic encephalopathy from opiates which resolved. -Fluid overload and pulmonary edema secondary to IV fluids she received which improved with Lasix. -Nor epinephrine induced vasoconstriction , digital ischemia secondary to vasopressors, improved with some residual neuropathic symptoms. Positive pulses , evaluated by vascular surgery with digital vasospasm resolved, pain improving. -TPN for nutritional support Plan: Continue current medication regime ,monitoring and symptomatic treatment. Diet advanced to clear liquids as per surgery. Bilateral foot pain slowly improving , increase ambulation as tolerated .Maintain IV antibiotics as per ID.Aggressive pulmonary toileting with incentive spirometer reinforced. PT/OT. Ostomy teaching. The impression and plan of care has been dictated as directed. : I performed a history and examination of this patient, discussed the same with the dictator. I agree with the dictator's note ,documented as a scribe. Any additional findings or plans will be noted.
[2017-12-15 18:29] LABS: Glucose,Whole Blood 93 mg/dL (75-99)
[2017-12-15] MEDS ORDERED: 1: MVI, ADULT NO.4 WITH VIT K 10 ML, TRACE (CONC-1ML/DOSE) 1 ML, POTASSIUM CHLORIDE 20 M IV SCH ×4 (18:30)
[2017-12-15 20:05] LABS: Glucose,Whole Blood 99 mg/dL (75-99)
[2017-12-15] MEDS: FLUCONAZOLE IN NACL,ISO-OSM 200 MG in SALINE 1 100ML.BAG IVPB SCH (20:58)
--- NOTE | 2017-12-15 23:21 | PN ---
PROGRESS NOTE DATE OF SERVICE: 12/15/2017. REASON FOR FOLLOWUP: Abdominal sepsis from ischemic colitis. INTERVAL HISTORY: The patient is afebrile. Her NG has been discontinued. The patient did have output in her colostomy bag. Denies having any chest pain or shortness of breath. No cough. Occasional slight nausea, but no vomiting. EXAMINATION: Blood pressure 141/60 with a pulse of 73, temperature 98.7. He is 94% on room air. General description is an elderly female lying in bed in no distress. RESPIRATORY SYSTEM: Unlabored breathing. Clear to auscultation anteriorly. HEART: S1, S2. Regular rate and rhythm. ABDOMEN: Soft, no tenderness. EXTREMITIES: No edema of the feet. LABS: Hemoglobin 9.6, white count of 10.2 with a BUN of 17, creatinine 0.79. DIAGNOSTIC IMPRESSION AND PLAN: Patient with abdominal sepsis from ischemic colitis, status post diverting colostomy in a patient did have Bacteroides bacteremia, currently on vancomycin and Zosyn Flagyl and Diflucan. Will discontinue the vancomycin. Once the wound looks improved, will give her a short course of oral Cipro and Flagyl over a short course, monitor her clinical course closely. Continue with supportive care. MMODL / IJN: [id number] /
[2017-12-16] MEDS: HYDROmorphone 1 MG/ML 1 ML SYRINGE IVP PRN ×2 (00:04→09:23)
[2017-12-16] MEDS: INSULIN ASPART 100 UNIT/ML 1 ML 10 ML VIAL SQ SCH ×3 (01:52→13:09)
[2017-12-16 05:54] LABS: Glucose,Whole Blood 76 mg/dL (75-99)
[2017-12-16] MEDS: METOCLOPRAMIDE 5 MG/ML 2 ML VIAL IVP SCH ×3 (06:00→17:45)
[2017-12-16 07:21] LABS: Albumin 2.3 g/dL (3.5-5.0); Calcium 8.4 mg/dL (8.4-10.2); Phosphorus 3.6 mg/dL (2.5-4.5); Potassium 3.5 mmol/L (3.5-5.1); Total Bilirubin 0.6 mg/dL (0.2-1.3); Total Protein 5.1 g/dL (6.3-8.2)
[2017-12-16] MEDS: FAT EMULSION 20% 250 ML in EMPTY BAG 1 BAG IV SCH (07:30)
[2017-12-16] MEDS: PIPERACILLIN-TAZOBACTAM 3.375 GM in DEXTROSE/WATER 1 50ML.BAG IVPB SCH ×2 (07:58→17:44)
[2017-12-16 08:23] LABS: Basophils # (A) 0.1 k/uL (0-0.2); Basophils % (A) 1 %; Eosinophils # (A) 0.4 k/uL (0-0.7); Eosinophils % (A) 5 %; HCT 30.1 % (34.0-46.0); HGB 9.5 gm/dL (11.4-16.0); Lymphocytes # (A) 0.9 k/uL (1.0-4.8); Lymphocytes % (A) 10 %; MCH 30.1 pg (25.0-35.0); MCHC 31.5 g/dL (31.0-37.0); MCV 95.6 fL (80.0-100.0); Mean Platelet Volume 7.7; Monocytes % (A) 11 %; Neutrophils % (A) 70 %; Platelet Count 445 k/uL (150-450); RBC 3.15 m/uL (3.80-5.40); RDW 14.7 % (11.5-15.5); WBC 8.6 k/uL (3.8-10.6)
[2017-12-16] MEDS: IPRATROPIUM-ALBUTEROL 3 ML NEB INHALATION SCH (08:35)
[2017-12-16] MEDS ORDERED: VANCOMYCIN 1,500 MG in SODIUM CHLORIDE 0.9% 250 ML IVPB SCH (09:00)
[2017-12-16] MEDS: LEVOTHYROXINE IVP 100 MCG/5 ML VIAL IV SCH (09:22)
[2017-12-16] MEDS: metroNIDAZOLE-NS PMX 500 MG in SALINE 1 100ML.BAG IVPB SCH (09:23)
[2017-12-16] MEDS: HEPARIN SODIUM,PORCINE 5,000 UNIT/ML 1 ML VIAL SQ SCH ×2 (09:23→20:49)
--- NOTE | 2017-12-16 09:59 | P.PN ---
<Elisa Wise M - Last Filed: 12/16/17 09:56> Subjective Progress Note Date: 12/16/17 77-year-old female up ambulating with the use of a walker with assist this morning moderate amount of stool from the ostomy reports tolerating a clear liquid diet is asking for diet to be advanced. No nausea no vomiting urinating no difficulty Patient is aware of the discharge plan is to go to an [facility] possible on Wednesday for rehab and [facility] December 01 diagnostic laparoscopy with lysis of adhesions exploratory laparotomy with partial colectomy mobilization splenic flexure, repair ventral hernia 2 done for severe septic shock suspect ischemic bowel Objective - Vital Signs Vital signs: Vital Signs Temp 98.2 F 12/16/17 07:00 Pulse 72 12/16/17 08:46 Resp 18 12/16/17 07:00 BP 145/76 12/16/17 07:00 Pulse Ox 90 L 12/16/17 07:00 Intake & Output 12/15/17 12/16/17 12/16/17 18:59 06:59 18:59 Intake Total 710 1270 Output Total 20 150 Balance 690 1120 Intake: IV 510 440 Amino Acid 5%-D15w+Lytes* 420 350 E* 1,000 ml @ 70 mls/hr IV .BY DURATION [facility] Rx#: [id number] Piperacillin-Tazobactam 3 50 50 .375 gm In Dextrose/Water 1 50ml.bag @ 12.5 mls/hr IVPB Q8HR [facility] Rx#: [id number] Sodium Chloride 0.45% 1, 40 40 000 ml @ 5 mls/hr IV . Q24H [facility] Rx#:[id number] Intake, IV Titration 200 350 Amount Fluconazole in NaCl,Iso- 100 Osm 200 mg In Saline 1 100ml.bag @ 100 mls/hr IVPB DAILY@1800 [facility] Rx#: [id number] Potassium Chloride 10 meq 200 In Water For Injection 1 100ml.bag @ 100 mls/hr IVPB Q1H [facility] Rx#: [id number] Vancomycin 1,500 mg In 250 Sodium Chloride 0.9% 250 ml @ 125 mls/hr IVPB Q18H [facility] Rx#:[id number] Oral 480 Output: Stool 20 150 Other: Voiding Method Bedside Commode Bedpan # Voids 2 3 # Bowel Movements 1 ABP, PAP, CO, CI - Last Documented Arterial Blood Pressure 131/70 - Exam Exam 77-year-old female seen at bedside up ambulating with the use of a walker with standby assist pleasant cooperative talkative Lungs adequate air movement no wheezing rales or rhonchi no shortness of breath on room air Heart S1-S2 audible regular Abdomen ostomy moderate amount of liquid brown stool in the ostomy bag [address] suture line well approximated surgical dressing dry tolerating ice chips clear liquids no nausea no vomiting Extremities trace pedal edema - Labs CBC & Chem 7: 12/16/17 06:32 12/16/17 06:32 Labs: Abnormal Lab Results - Last 24 Hours (Table) 12/15/17 12/16/17 12/16/17 Range/Units 13:28 06:32 06:32 RBC 3.15 L (3.80-5.40) m/uL Hgb 9.5 L (11.4-16.0) gm/dL Hct 30.1 L (34.0-46.0) % Lymphocytes # 0.9 L (1.0-4.8) k/uL Sodium 133 L (137-145) mmol/L POC Glucose (mg/dL) 128 H (75-99) mg/dL Alkaline Phosphatase 141 H (38-126) U/L Total Protein 5.1 L (6.3-8.2) g/dL Albumin 2.3 L (3.5-5.0) g/dL Assessment and Plan Assessment: Impression Acute Septic shock secondary UTI and subsequent ischemic colitis Hypertension Ischemic gangrenous bowel status post resection with ostomy Present on admission abdominal pain suspect due to ischemic colitis bacteroides fragilis bacteremia Leukocytosis improving Abdominal x-ray 12/14 suggestive of an ileus not ruled out Resolving small bowel obstruction Toxic encephalopathy opiate which has resolved Plan Antibiotics per infectious disease Continue postop surgical care Advance diet to full liquid Anticipate transfer to rehab on Wednesday if medically stable PT OT eval Increase activity Pain control Will follow with you The above impression and plan of care have been discussed and directed by signing physician. Elisa Wise nurse practitioner acting as scribe for signing physician. <Dakota Hutton - Last Filed: 12/16/17 16:51> Objective - Vital Signs Vital signs: Vital Signs Temp 98.1 F 12/16/17 14:37 Pulse 77 12/16/17 14:37 Resp 16 12/16/17 14:37 BP 126/74 12/16/17 14:37 Pulse Ox 91 L 12/16/17 14:37 Intake & Output 12/15/17 12/16/17 12/16/17 18:59 06:59 18:59 Intake Total 710 1270 Output Total 20 150 Balance 690 1120 Weight 86.5 kg Intake: IV 510 440 Amino Acid 5%-D15w+Lytes* 420 350 E* 1,000 ml @ 70 mls/hr IV .BY DURATION [facility] Rx#: [id number] Piperacillin-Tazobactam 3 50 50 .375 gm In Dextrose/Water 1 50ml.bag @ 12.5 mls/hr IVPB Q8HR [facility] Rx#: [id number] Sodium Chloride 0.45% 1, 40 40 000 ml @ 5 mls/hr IV . Q24H [facility] Rx#:[id number] Intake, IV Titration 200 350 Amount Fluconazole in NaCl,Iso- 100 Osm 200 mg In Saline 1 100ml.bag @ 100 mls/hr IVPB DAILY@1800 [facility] Rx#: [id number] Potassium Chloride 10 meq 200 In Water For Injection 1 100ml.bag @ 100 mls/hr IVPB Q1H [facility] Rx#: [id number] Vancomycin 1,500 mg In 250 Sodium Chloride 0.9% 250 ml @ 125 mls/hr IVPB Q18H [facility] Rx#:[id number] Oral 480 Output: Stool 20 150 Other: Voiding Method Bedside Commode Bedpan # Voids 2 3 # Bowel Movements 1 ABP, PAP, CO, CI - Last Documented Arterial Blood Pressure 131/70 - Labs CBC & Chem 7: 12/16/17 06:32 12/16/17 06:32 Labs: Abnormal Lab Results - Last 24 Hours (Table) 12/16/17 12/16/17 Range/Units 06:32 06:32 RBC 3.15 L (3.80-5.40) m/uL Hgb 9.5 L (11.4-16.0) gm/dL Hct 30.1 L (34.0-46.0) % Lymphocytes # 0.9 L (1.0-4.8) k/uL Sodium 133 L (137-145) mmol/L Alkaline Phosphatase 141 H (38-126) U/L Total Protein 5.1 L (6.3-8.2) g/dL Albumin 2.3 L (3.5-5.0) g/dL Assessment and Plan Assessment: As above. Patient doing well today. Continue to have good bowel function. Denies nausea or vomiting. Appetite improving. Continue PTOT. We'll add Motrin for back pain. (1) Abdominal pain Current Visit: Yes Status: Acute Code(s): R10.9 - UNSPECIFIED ABDOMINAL PAIN SNOMED Code(s): 08368383
[2017-12-16 10:59] VITALS: BMI 28.1
[2017-12-16 11:21] LABS: Glucose,Whole Blood 85 mg/dL (75-99)
[2017-12-16] MEDS: ALBUTEROL NEBULIZED 2.5 MG/3 ML INHALATION SCH ×3 (11:32→19:41)
[2017-12-16] MEDS: ACETAMINOPHEN TAB 325 MG TAB PO PRN ×2 (13:57→20:50)
--- NOTE | 2017-12-16 14:44 | P.PN ---
Subjective Progress Note Date: 12/16/17 Progress note being dictated for Dr. Mayen. Septic shock secondary to ischemic bowel Interval history:Patient is 77-year-old female with a known history of hypertension, hypothyroidism, third-degree heart block with pacemaker, colitis/ stomach ulcer in the 1970s, migraine headache and COPD and multiple other medical problems came to ER with complaints of abdominal discomfort mainly in the lower abdomen and shakiness. Denied any fever. Denied any cough or sputum production. Patient does have chronic cough but no recent changes. No diarrhea. No headache or dizziness. No chest pain or shortness of breath. Denied any hematuria or dysuria. Patient says her symptoms began last night around 9:30 PM. Symptoms are getting worse and patient presently ER for further evaluation. Patient was hypotensive in the ER and was associated with normal saline 4 L and was started on levofed drip. Patient was transferred to MICU for intensive care. Patient has leukocytosis 14.4, lactic acid 5.5 and slightly abnormal urine sample. Patient was started on antibiotics and general surgery was consulted for possible ischemic colon. Chest x-ray diffuse interstitial pattern. Correlate for mild congestion. CT of the abdominal pelvis showed perinephric stranding on the left with bilateral perinephric fluid. Consider pyelonephritis. No obstruction is evident. Diverticulosis without acute diverticulitis of the sigmoid colon. pancreas prominence of the antiemetic duct Within the body and tail of the pancreas. Follow-up ERCP could be considered. Correlate for acute pancreatitis. 12/02/2017 Patient was intubated postoperatively. Patient had exploratory laparotomy with lysis of adhesions, colectomy and colostomy bag placement and as well as ventral hernia repair. Patient is still requiring high doses of Levophed. Continued on IV hydration and monitor EUGENIA's. Patient was found have severe leukocytosis today at 40.8. Vancomycin and Flagyl was added along with Zosyn. ID was consulted. Next a chest x-ray showed mild bibasilar atelectasis and small left-sided pleural effusion. Pulmonary and general surgery and ID following. 12/03/2017 Patient remains on mechanical ventilator today. Still on pressor support and gradually tapering down. Patient also having metabolic acidosis and was started on bicarb as well. Patient was also started on stress test steroids with hydrocortisone. Otherwise continued on norepinephrine. Chest x-ray showed bibasilar atelectasis and small left pleural effusion. Urine culture showed group B enterococcus. WBC count is still elevated at 46.9. Currently on broad-spectrum antibiotics. Creatinine 1.76 12/04/2017 Patient was successfully extubated today. Patient is off pressor support and otherwise receiving hydrocortisone. Chest x-ray showed small fluid overload. Urine culture showed group B enterococcus and blood cultures positive for gram-negative bacilli Patient was also noted to have discoloration of the fingers. Otherwise patient is being continued on antibiotics in the form of vancomycin and Zosyn. Currently patient is still drowsy. 12/05/2017 Patient is awake alert and able to answer simple questions. Complaining of thumb pain. Discoloration improving otherwise. Patient was noted to have ventricular tachycardia last night and was placed on amiodarone drip. Continued on hydrocortisone. Blood pressure is fairly stable. Denied any complaints of chest pain. No nausea vomiting or diarrhea. Urine culture showed enterococcus fecaliths. Blood cultures negative. Sputum culture showed Fatoumata. Pulmonary and cardiology and general surgery is following. Leukocytosis with WBC 29 Review of systems could not be obtained from the patient. Current medications reviewed. 12/06/17 77-year-old admitted secondary to ischemic colitis underwent a laparotomy transverse colectomy found to have diverticulitis as well and had a ventral hernia repair patient is in ICU for septic shock shock improved patient has enterococcus in the urine and gram-negative to anaerobic bacteria in the blood repeat blood cultures were obtained. Patient is on Zosyn to cover the still patient is also on empiric Diflucan vancomycin was discontinued patient is off pressor support patient remains to have an G2 patient does have TPN in place. NG tube is still draining. By the time I evaluated the patient patient received a narcotics for pain because of which the patient is bit sleepy and bit confused although was asking appropriate questions like when her NG tube will be out. Has sluggish bowel sounds on exam. 12/07/2017 Patient the continues to have an G2 no significant improvement compared to yesterday. Patient is on TPN at this time. 12/08/2017 Patient is to have nasogastric tube with the little bit of drainage confusion improved area patient is comparing of nausea. Probably secondary to antibiotics patient is Zosyn and metronidazole. Patient received Lasix with significant improvement in her respiratory status. Patient is urinating well. IJ central line was removed and patient is receiving PICC line. Patient had minimally worsening white blood cell count. Low potassium which will be supplemented secondary to Lasix she received an pulmonary edema improved after Lasix. 12/09/2017 Significant changes clinically overall. Patient still has an NG tube with minimal drainage. Respiratory status did improve sodium has gone down a little bit. Patient's vasospasm and bluish discoloration of the toe secondary to not epinephrine is getting better. Patient is off Nor-epinephrine. 12/10/2017 Patient can use to have NG tube slow and steady improvement. No overnight events. 12/11/2017, the patient is still having limited amount of activity in her colostomy bag. Some minimal amount of liquidy material accumulating. NG tube is in place. Surgical wound site is clean. No active respiratory difficulties or issues for now. Hemodynamically stable. Afebrile. Receiving TPN. Electrolytes are all within normal limits. She is on a combination of Zosyn and Diflucan. Using incentive spirometer. Sitting up on a chair. Her overall weakness is gradually improving. The active issue for now remains the slow recovery of the bowel activity post surgery. 12/12/2017 the patient is on a surgical floor. Unfortunately minimal amount of output is seen in the colostomy bag. Still on TPN. The abdominal wound is clean. No fever or chills. No other respiratory difficulties. She remains on Zosyn and Diflucan. NG tube is in place. 12/13/17 sitting up in chair, small liquidy stool in ostomy, no flatus. NG tube present. No nausea or vomiting. Maintained on TPN. Blood sugars controlled. Reports ambulation of minimal distance yesterday, sensation improving in bilateral hands and feet. Maintaining O2 sats in the high 90s on 2 L nasal cannula. Denies chest pain, palpitations or increasing shortness of breath. Abdominal pain controlled. Afebrile, normal WBC. Maintained on vancomycin, Zosyn, fluconazole, Diflucan. Sodium 134. 12/14/17 NG tube present, complains of nausea without emesis. Abdominal x- ray reporting ileus , resolving small bowel obstruction, possible small left pleural effusion. Not passing flatus, minimal output in colostomy Continues on TPN.lipids. Numbness, tingling of feet and hands improving. One person assist to bedside commode. Minimal ambulation to doorway. Afebrile. 12/15/2017 NG tube accidentally pulled out this morning. Increased ostomy output. Passing flatus. Tolerating popsicles with no nausea or vomiting. Ambulating into hallway with assistance. Foot pain improving. Abdominal pain controlled. 12/16/17 ambulating in hallway with walker & assist X1, tolerated exertion well. Tolerated clear liquids and diet advanced to full liquids as per surgery. Denies nausea or vomiting. Ostomy continues to produce moderate amount of stool. Objective - Vital Signs Vital signs: Vital Signs Temp 98.1 F 12/16/17 14:37 Pulse 77 12/16/17 14:37 Resp 16 12/16/17 14:37 BP 126/74 12/16/17 14:37 Pulse Ox 91 L 12/16/17 14:37 Intake & Output 12/15/17 12/16/17 12/16/17 18:59 06:59 18:59 Intake Total 710 1270 Output Total 20 150 Balance 690 1120 Weight 86.5 kg Intake: IV 510 440 Amino Acid 5%-D15w+Lytes* 420 350 E* 1,000 ml @ 70 mls/hr IV .BY DURATION [facility] Rx#: [id number] Piperacillin-Tazobactam 3 50 50 .375 gm In Dextrose/Water 1 50ml.bag @ 12.5 mls/hr IVPB Q8HR [facility] Rx#: [id number] Sodium Chloride 0.45% 1, 40 40 000 ml @ 5 mls/hr IV . Q24H [facility] Rx#:[id number] Intake, IV Titration 200 350 Amount Fluconazole in NaCl,Iso- 100 Osm 200 mg In Saline 1 100ml.bag @ 100 mls/hr IVPB DAILY@1800 [facility] Rx#: [id number] Potassium Chloride 10 meq 200 In Water For Injection 1 100ml.bag @ 100 mls/hr IVPB Q1H [facility] Rx#: [id number] Vancomycin 1,500 mg In 250 Sodium Chloride 0.9% 250 ml @ 125 mls/hr IVPB Q18H [facility] Rx#:[id number] Oral 480 Output: Stool 20 150 Other: Voiding Method Bedside Commode Bedpan # Voids 2 3 # Bowel Movements 1 ABP, PAP, CO, CI - Last Documented Arterial Blood Pressure 131/70 - Exam PHYSICAL EXAM: VITAL SIGNS: As above GENERAL: Sitting up in bed, no acute distress HEENT: Conjunctivae normal. eyes normal. Oral mucosa moist NECK: No JVD. No thyroid enlargement. No LNs CARDIOVASCULAR: S1, S2 muffled. No murmur RESPIRATION: Breath sounds diminished in the bases. No rhonchi , no crackles. No wheezing. ABDOMEN: Soft, status post surgery. Colostomy present with moderate liquid bowel movement, retention sutures present, dressing clean dry and intact, positive bowel sounds. LEGS: No edema. no swelling PSYCHIATRY: Alert and oriented -3, mood and affect normal. NERVOUS SYSTEM: Cranial N 2-12 grossly normal. Moves all 4 limbs. Diffuse weakness No focal deficits. Microbiology 12/06/17 13:52 Blood Blood Culture - Final No Growth after 144 hours 12/08/17 19:40 Catheter Tip Catheter Tip Culture - Final 12/01/17 08:20 Blood Blood Culture Gram Stain - Final 12/01/17 08:20 Blood Blood Culture - Final Bacteroides fragilis 12/02/17 Unknown Sputum Gram Stain - Final 12/02/17 Unknown Sputum Sputum Culture - Final Fatoumata albicans 12/01/17 10:18 Urine,Voided Urine Culture - Final Enterococcus faecalis 12/01/17 08:20 Blood Blood Culture - Final - Labs CBC & Chem 7: 12/16/17 06:32 12/16/17 06:32 Labs: Abnormal Lab Results - Last 24 Hours (Table) 12/16/17 12/16/17 Range/Units 06:32 06:32 RBC 3.15 L (3.80-5.40) m/uL Hgb 9.5 L (11.4-16.0) gm/dL Hct 30.1 L (34.0-46.0) % Lymphocytes # 0.9 L (1.0-4.8) k/uL Sodium 133 L (137-145) mmol/L Alkaline Phosphatase 141 H (38-126) U/L Total Protein 5.1 L (6.3-8.2) g/dL Albumin 2.3 L (3.5-5.0) g/dL Assessment and Plan Assessment: -Septic shock shock resolved secondary to colitis. Bacteroides fragilis bacteremia. UTI with enterococcus faecalis. -Ischemic gangrenous bowel status post resection, diverting colostomy. Postop Ileus. -Hypertension -Hypothyroidism -COPD without any acute exacerbation -History of pacemaker for her history of third-degree heart block: Pacemaker was reevaluated without any problems no issues regarding that currently -Toxic encephalopathy from opiates which resolved. -Fluid overload and pulmonary edema secondary to IV fluids she received which improved with Lasix. -Nor epinephrine induced vasoconstriction , digital ischemia secondary to vasopressors, improved with some residual neuropathic symptoms. Positive pulses , evaluated by vascular surgery with digital vasospasm resolved, pain improving. -TPN for nutritional support Plan: Continue current medication regime ,monitoring and symptomatic treatment. Diet advancement as per surgery. Aggressive pulmonary toileting with incentive spirometer reinforced. Bilateral foot pain improving , increase ambulation as tolerated .Maintain IV antibiotics as per ID. PT/OT. Continue with Ostomy teaching. The impression and plan of care has been dictated as directed. : I performed a history and examination of this patient, discussed the same with the dictator. I agree with the dictator's note ,documented as a scribe. Any additional findings or plans will be noted.
[2017-12-16] MEDS: SODIUM CHLORIDE 0.45% 1,000 ML IV SCH (14:48)
--- NOTE | 2017-12-16 15:10 | PN ---
PROGRESS NOTE DATE OF SERVICE: 12/16/2017 REASON FOR FOLLOWUP: Abdominal sepsis. INTERVAL HISTORY: The patient is currently afebrile. She is breathing comfortably. Denies having any chest pain, shortness of breath or cough. No abdominal pain. Did have output in her colostomy bag and tolerating a diet. PHYSICAL EXAMINATION: Blood pressure 145/76, pulse of 83, temperature 98.2, she is 90% on room air. General description is an elderly female, up in the chair in no distress. RESPIRATORY SYSTEM: Unlabored breathing with decreased breath sounds at the bases, no wheeze. HEART: S1, S2. Regular rate and rhythm. ABDOMEN Soft, no tenderness. LABS: Hemoglobin 9.5, white count 8.3, BUN of 14, creatinine 0.88. DIAGNOSTIC IMPRESSION AND PLAN: Patient with abdominal sepsis from the ischemic colitis, status post laparotomy and diverting colostomy with Bacteroides bacteremia. Patient seems to have slowly increasing her oral intake. Flagyl and Diflucan can be switched to p.o. Zosyn to be switched to p.o. Cipro on discharge for a short course. Continue supportive care. MMODL / IJN: [id number] /
[2017-12-16] MEDS: IBUPROFEN 800 MG TAB PO PRN (17:43)
[2017-12-16] MEDS: metroNIDAZOLE 500 MG TAB PO SCH ×2 (17:43→22:42)
[2017-12-16] MEDS: PANTOPRAZOLE 40 MG/10 ML VIAL IV SCH (19:09)
[2017-12-16] MEDS: BENZOCAINE/MENTHOL LOZENG 1 EACH LOZENGE MUCOUS MEM PRN (22:48)
[2017-12-17] MEDS: METOCLOPRAMIDE 5 MG/ML 2 ML VIAL IVP SCH ×4 (00:03→19:31)
[2017-12-17] MEDS: PIPERACILLIN-TAZOBACTAM 3.375 GM in DEXTROSE/WATER 1 50ML.BAG IVPB SCH ×3 (00:03→15:58)
[2017-12-17] MEDS: ALBUTEROL NEBULIZED 2.5 MG/3 ML INHALATION PRN (01:22)
[2017-12-17] MEDS: IBUPROFEN 800 MG TAB PO PRN ×2 (01:33→21:02)
[2017-12-17] MEDS: BENZOCAINE/MENTHOL LOZENG 1 EACH LOZENGE MUCOUS MEM PRN ×3 (01:57→19:33)
[2017-12-17] MEDS: guaiFENesin-Coden 100-10MG/5ML 10 ML CUP PO PRN ×3 (04:27→21:02)
[2017-12-17] MEDS: ALBUTEROL NEBULIZED 2.5 MG/3 ML INHALATION SCH ×4 (07:40→20:20)
[2017-12-17 07:41] LABS: Basophils % (A) 0 %; Eosinophils # (A) 0.5 k/uL (0-0.7); Eosinophils % (A) 6 %; HCT 30.8 % (34.0-46.0); Lymphocytes # (A) 0.9 k/uL (1.0-4.8); Lymphocytes % (A) 11 %; MCH 29.9 pg (25.0-35.0); MCHC 32.3 g/dL (31.0-37.0); MCV 92.4 fL (80.0-100.0); Mean Platelet Volume 7.2; Monocytes # (A) 0.9 k/uL (0-1.0); Monocytes % (A) 10 %; Neutrophils % (A) 70 %; Platelet Count 499 k/uL (150-450); RBC 3.34 m/uL (3.80-5.40); RDW 14.6 % (11.5-15.5); WBC 8.5 k/uL (3.8-10.6)
[2017-12-17 07:53] LABS: Albumin 2.8 g/dL (3.5-5.0); Magnesium 1.9 mg/dL (1.6-2.3); Phosphorus 3.5 mg/dL (2.5-4.5); Potassium 3.5 mmol/L (3.5-5.1); Total Bilirubin 0.8 mg/dL (0.2-1.3); Total Protein 5.9 g/dL (6.3-8.2)
[2017-12-17] MEDS: FLUCONAZOLE 100 MG TAB PO SCH (09:55)
[2017-12-17] MEDS: HEPARIN SODIUM,PORCINE 5,000 UNIT/ML 1 ML VIAL SQ SCH ×2 (09:55→21:01)
[2017-12-17] MEDS: PANTOPRAZOLE 40 MG TABLET PO SCH (09:56)
[2017-12-17] MEDS: LEVOTHYROXINE 125 MCG TAB PO SCH (09:56)
[2017-12-17] MEDS: metroNIDAZOLE 500 MG TAB PO SCH ×3 (09:56→21:01)
--- NOTE | 2017-12-17 09:58 | P.PN ---
<FrandyElisa M - Last Filed: 12/17/17 09:58> Subjective Progress Note Date: 12/17/17 77-year-old female sitting up in bed talkative states is anxious to go to the rehab. Tolerating a diet. Moderate amount of stool in the ostomy has been up ambulating with assist in the hallway. Patient is verbalizing "concern getting a cold" occasional nonproductive cough noted afebrile temp is 98 and on room air sats are 95% white count 8.5 .December 01 diagnostic laparoscopy with lysis of adhesions exploratory laparotomy with partial colectomy mobilization splenic flexure, repair ventral hernia 2 done for severe septic shock suspect ischemic bowel Objective - Vital Signs Vital signs: Vital Signs Temp 98.3 F 12/17/17 07:55 Pulse 73 12/17/17 07:55 Resp 18 12/17/17 07:55 BP 156/72 12/17/17 07:55 Pulse Ox 97 12/17/17 07:55 Intake & Output 12/16/17 12/17/17 12/17/17 18:59 06:59 18:59 Intake Total 280 Output Total 60 Balance 280 -60 Weight 86.5 kg Intake: IV 40 Sodium Chloride 0.45% 1, 40 000 ml @ 5 mls/hr IV . Q24H [facility] Rx#:[id number] Oral 240 Output: Stool 60 Other: Voiding Method Toilet Bedside Commode Bedpan # Voids 1 ABP, PAP, CO, CI - Last Documented Arterial Blood Pressure 131/70 - Exam Exam 77-year-old female seen sitting up in bed pleasant cooperative talkative Lungs adequate air movement no wheezing rales or rhonchi no shortness of breath on room air occasional nonproductive cough noted Heart S1-S2 audible regular had an episode during the night 9 beat nonsustained V. tach asymptomatic Abdomen ostomy moderate amount of liquid brown stool in the ostomy bag [address] suture line well approximated surgical dressing dry tolerating a low fiber diet no nausea no vomiting Extremities trace pedal edema - Labs CBC & Chem 7: 12/17/17 06:53 12/17/17 06:53 Labs: Abnormal Lab Results - Last 24 Hours (Table) 12/17/17 12/17/17 Range/Units 06:53 06:53 RBC 3.34 L (3.80-5.40) m/uL Hgb 10.0 L (11.4-16.0) gm/dL Hct 30.8 L (34.0-46.0) % Plt Count 499 H (150-450) k/uL Lymphocytes # 0.9 L (1.0-4.8) k/uL Sodium 136 L (137-145) mmol/L Alkaline Phosphatase 149 H (38-126) U/L Total Protein 5.9 L (6.3-8.2) g/dL Albumin 2.8 L (3.5-5.0) g/dL Assessment and Plan Assessment: Impression Acute Septic shock secondary UTI and subsequent ischemic colitis Hypertension Ischemic gangrenous bowel status post resection with ostomy Present on admission abdominal pain suspect due to ischemic colitis bacteroides fragilis bacteremia Leukocytosis improving Abdominal x-ray 12/14 suggestive of an ileus not ruled out Resolving small bowel obstruction Toxic encephalopathy opiate which has resolved Plan Antibiotics per infectious disease Continue postop surgical care Advance diet to low fiber Anticipate transfer to rehab on Wednesday surgically stable PT OT eval Increase activity Pain control Will follow with you The above impression and plan of care have been discussed and directed by signing physician. Elisa Wise nurse practitioner acting as scribe for signing physician. <Dakota Hutton - Last Filed: 12/17/17 17:08> Objective - Vital Signs Vital signs: Vital Signs Temp 98.2 F 12/17/17 15:45 Pulse 80 12/17/17 16:41 Resp 16 12/17/17 15:45 BP 143/84 12/17/17 15:45 Pulse Ox 93 L 12/17/17 15:45 Intake & Output 12/16/17 12/17/17 12/17/17 18:59 06:59 18:59 Intake Total 280 50 Output Total 60 Balance 280 -60 50 Weight 86.5 kg Intake: IV 40 Sodium Chloride 0.45% 1, 40 000 ml @ 5 mls/hr IV . Q24H [facility] Rx#:[id number] Oral 240 50 Output: Stool 60 Other: Voiding Method Toilet Bedside Commode Bedpan # Voids 1 1 ABP, PAP, CO, CI - Last Documented Arterial Blood Pressure 131/70 - Labs CBC & Chem 7: 12/17/17 06:53 12/17/17 06:53 Labs: Abnormal Lab Results - Last 24 Hours (Table) 12/17/17 12/17/17 Range/Units 06:53 06:53 RBC 3.34 L (3.80-5.40) m/uL Hgb 10.0 L (11.4-16.0) gm/dL Hct 30.8 L (34.0-46.0) % Plt Count 499 H (150-450) k/uL Lymphocytes # 0.9 L (1.0-4.8) k/uL Sodium 136 L (137-145) mmol/L Alkaline Phosphatase 149 H (38-126) U/L Total Protein 5.9 L (6.3-8.2) g/dL Albumin 2.8 L (3.5-5.0) g/dL Assessment and Plan Assessment: As above. Patient continuing to progress nicely. Energy level improving. Continues to tolerate diet. Anticipate probable transfer to rehab tomorrow. We 'll remove one half of sumaya. Follow-up in the office 2 weeks. (1) Abdominal pain Current Visit: Yes Status: Acute Code(s): R10.9 - UNSPECIFIED ABDOMINAL PAIN SNOMED Code(s): 12955740
--- NOTE | 2017-12-17 13:27 | P.PN ---
Subjective Mrs. 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 She has been admitted into the hospital with sepsis and underwent colectomy for ischemic bowel. She was initially in the ICU and was seen in consultation by Dr. Lorenzo for wide complex tachycardia that was determined to be atrial sensed pacing. She has since been moved to the surgical unit and is preparing for discharge. We were asked to see her again for ectopy noted on telemetry this morning around 0500. Patient states she was coughing this morning when the nurse came and asked if she was ok. She denies any symptoms of chest pain, palpitations, shortness of breath or dizziness. Blood pressure 156/72 heart rate 73 afebrile and maintaining oxygen saturation on room air. Laboratory data reviewed, hemoglobin 10.0, platelets 499, sodium 136, potassium 3.5, magnesium 1.9, creatinine 0.94. Prior to admission she was on losartan/HCTZ 100/25 mg daily which has been discontinued secondary to hypotension. Telemetry tracings reviewed upstairs with scanning tech and no evidence of ectopy noted. Continues to maintain sinus mechanism. Objective - Vital Signs Vital signs: Vital Signs Temp 98.3 F 12/17/17 07:55 Pulse 84 12/17/17 11:01 Resp 18 12/17/17 07:55 BP 156/72 12/17/17 07:55 Pulse Ox 97 12/17/17 07:55 Intake & Output 12/16/17 12/17/17 12/17/17 18:59 06:59 18:59 Intake Total 280 Output Total 60 Balance 280 -60 Weight 86.5 kg Intake: IV 40 Sodium Chloride 0.45% 1, 40 000 ml @ 5 mls/hr IV . Q24H [facility] Rx#:[id number] Oral 240 Output: Stool 60 Other: Voiding Method Toilet Bedside Commode Bedpan # Voids 1 ABP, PAP, CO, CI - Last Documented Arterial Blood Pressure 131/70 - Exam GENERAL: Well-appearing, well-nourished and in no acute distress. NECK: Supple without JVD or thyromegaly. LUNGS: Breath sounds clear to auscultation bilaterally. Respiration equal and unlabored. No wheezes, rales or rhonchi. Diminished bilaterally. HEART: Regular rate and rhythm with faint systolic murmur noted, no rubs or gallops. S1 and S2 heard. EXTREMITIES: Normal range of motion, no edema. No clubbing or cyanosis. Peripheral pulses intact. - Labs CBC & Chem 7: 12/17/17 06:53 12/17/17 06:53 Labs: Abnormal Lab Results - Last 24 Hours (Table) 12/17/17 12/17/17 Range/Units 06:53 06:53 RBC 3.34 L (3.80-5.40) m/uL Hgb 10.0 L (11.4-16.0) gm/dL Hct 30.8 L (34.0-46.0) % Plt Count 499 H (150-450) k/uL Lymphocytes # 0.9 L (1.0-4.8) k/uL Sodium 136 L (137-145) mmol/L Alkaline Phosphatase 149 H (38-126) U/L Total Protein 5.9 L (6.3-8.2) g/dL Albumin 2.8 L (3.5-5.0) g/dL Assessment and Plan Assessment: ASSESSMENT Septic shock secondary to UTI and colitis Ischemic gangrenous kristin s/p resection with ostomy Wide complex tachycardia, atrial paced rhythm not ventricular tachycardia Hypertension History of permanent pacemaker implantation COPD PLAN Telemetry monitoring reviewed, no evidence of ectopy, tachycardia or arrhythmia. We will add on small dose of metoprolol 25 mg twice a day. Advised the patient to hold off on resuming her Hyzaar until she follows up with Dr. Brooks upon discharge. Please feel free to call with further questions of concerns. Nurse Practitioner note has been reviewed, I agree with a documented findings and plan of care. Patient was seen and examined.
[2017-12-17] MEDS ORDERED: Potassium Replacement Protocol 1 EACH MISC MISCELLANE PRN (13:34)
--- NOTE | 2017-12-17 13:41 | P.PN ---
Subjective Progress Note Date: 12/17/17 Progress note being dictated for Dr. Mayen. Septic shock secondary to ischemic bowel Interval history:Patient is 77-year-old female with a known history of hypertension, hypothyroidism, third-degree heart block with pacemaker, colitis/ stomach ulcer in the 1970s, migraine headache and COPD and multiple other medical problems came to ER with complaints of abdominal discomfort mainly in the lower abdomen and shakiness. Denied any fever. Denied any cough or sputum production. Patient does have chronic cough but no recent changes. No diarrhea. No headache or dizziness. No chest pain or shortness of breath. Denied any hematuria or dysuria. Patient says her symptoms began last night around 9:30 PM. Symptoms are getting worse and patient presently ER for further evaluation. Patient was hypotensive in the ER and was associated with normal saline 4 L and was started on levofed drip. Patient was transferred to MICU for intensive care. Patient has leukocytosis 14.4, lactic acid 5.5 and slightly abnormal urine sample. Patient was started on antibiotics and general surgery was consulted for possible ischemic colon. Chest x-ray diffuse interstitial pattern. Correlate for mild congestion. CT of the abdominal pelvis showed perinephric stranding on the left with bilateral perinephric fluid. Consider pyelonephritis. No obstruction is evident. Diverticulosis without acute diverticulitis of the sigmoid colon. pancreas prominence of the antiemetic duct Within the body and tail of the pancreas. Follow-up ERCP could be considered. Correlate for acute pancreatitis. 12/02/2017 Patient was intubated postoperatively. Patient had exploratory laparotomy with lysis of adhesions, colectomy and colostomy bag placement and as well as ventral hernia repair. Patient is still requiring high doses of Levophed. Continued on IV hydration and monitor EUGENIA's. Patient was found have severe leukocytosis today at 40.8. Vancomycin and Flagyl was added along with Zosyn. ID was consulted. Next a chest x-ray showed mild bibasilar atelectasis and small left-sided pleural effusion. Pulmonary and general surgery and ID following. 12/03/2017 Patient remains on mechanical ventilator today. Still on pressor support and gradually tapering down. Patient also having metabolic acidosis and was started on bicarb as well. Patient was also started on stress test steroids with hydrocortisone. Otherwise continued on norepinephrine. Chest x-ray showed bibasilar atelectasis and small left pleural effusion. Urine culture showed group B enterococcus. WBC count is still elevated at 46.9. Currently on broad-spectrum antibiotics. Creatinine 1.76 12/04/2017 Patient was successfully extubated today. Patient is off pressor support and otherwise receiving hydrocortisone. Chest x-ray showed small fluid overload. Urine culture showed group B enterococcus and blood cultures positive for gram-negative bacilli Patient was also noted to have discoloration of the fingers. Otherwise patient is being continued on antibiotics in the form of vancomycin and Zosyn. Currently patient is still drowsy. 12/05/2017 Patient is awake alert and able to answer simple questions. Complaining of thumb pain. Discoloration improving otherwise. Patient was noted to have ventricular tachycardia last night and was placed on amiodarone drip. Continued on hydrocortisone. Blood pressure is fairly stable. Denied any complaints of chest pain. No nausea vomiting or diarrhea. Urine culture showed enterococcus fecaliths. Blood cultures negative. Sputum culture showed Fatoumata. Pulmonary and cardiology and general surgery is following. Leukocytosis with WBC 29 Review of systems could not be obtained from the patient. Current medications reviewed. 12/06/17 77-year-old admitted secondary to ischemic colitis underwent a laparotomy transverse colectomy found to have diverticulitis as well and had a ventral hernia repair patient is in ICU for septic shock shock improved patient has enterococcus in the urine and gram-negative to anaerobic bacteria in the blood repeat blood cultures were obtained. Patient is on Zosyn to cover the still patient is also on empiric Diflucan vancomycin was discontinued patient is off pressor support patient remains to have an G2 patient does have TPN in place. NG tube is still draining. By the time I evaluated the patient patient received a narcotics for pain because of which the patient is bit sleepy and bit confused although was asking appropriate questions like when her NG tube will be out. Has sluggish bowel sounds on exam. 12/07/2017 Patient the continues to have an G2 no significant improvement compared to yesterday. Patient is on TPN at this time. 12/08/2017 Patient is to have nasogastric tube with the little bit of drainage confusion improved area patient is comparing of nausea. Probably secondary to antibiotics patient is Zosyn and metronidazole. Patient received Lasix with significant improvement in her respiratory status. Patient is urinating well. IJ central line was removed and patient is receiving PICC line. Patient had minimally worsening white blood cell count. Low potassium which will be supplemented secondary to Lasix she received an pulmonary edema improved after Lasix. 12/09/2017 Significant changes clinically overall. Patient still has an NG tube with minimal drainage. Respiratory status did improve sodium has gone down a little bit. Patient's vasospasm and bluish discoloration of the toe secondary to not epinephrine is getting better. Patient is off Nor-epinephrine. 12/10/2017 Patient can use to have NG tube slow and steady improvement. No overnight events. 12/11/2017, the patient is still having limited amount of activity in her colostomy bag. Some minimal amount of liquidy material accumulating. NG tube is in place. Surgical wound site is clean. No active respiratory difficulties or issues for now. Hemodynamically stable. Afebrile. Receiving TPN. Electrolytes are all within normal limits. She is on a combination of Zosyn and Diflucan. Using incentive spirometer. Sitting up on a chair. Her overall weakness is gradually improving. The active issue for now remains the slow recovery of the bowel activity post surgery. 12/12/2017 the patient is on a surgical floor. Unfortunately minimal amount of output is seen in the colostomy bag. Still on TPN. The abdominal wound is clean. No fever or chills. No other respiratory difficulties. She remains on Zosyn and Diflucan. NG tube is in place. 12/13/17 sitting up in chair, small liquidy stool in ostomy, no flatus. NG tube present. No nausea or vomiting. Maintained on TPN. Blood sugars controlled. Reports ambulation of minimal distance yesterday, sensation improving in bilateral hands and feet. Maintaining O2 sats in the high 90s on 2 L nasal cannula. Denies chest pain, palpitations or increasing shortness of breath. Abdominal pain controlled. Afebrile, normal WBC. Maintained on vancomycin, Zosyn, fluconazole, Diflucan. Sodium 134. 12/14/17 NG tube present, complains of nausea without emesis. Abdominal x- ray reporting ileus , resolving small bowel obstruction, possible small left pleural effusion. Not passing flatus, minimal output in colostomy Continues on TPN.lipids. Numbness, tingling of feet and hands improving. One person assist to bedside commode. Minimal ambulation to doorway. Afebrile. 12/15/2017 NG tube accidentally pulled out this morning. Increased ostomy output. Passing flatus. Tolerating popsicles with no nausea or vomiting. Ambulating into hallway with assistance. Foot pain improving. Abdominal pain controlled. 12/16/17 ambulating in hallway with walker & assist X1, tolerated exertion well. Tolerated clear liquids and diet advanced to full liquids as per surgery. Denies nausea or vomiting. Ostomy continues to produce moderate amount of stool. 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 Potassium 3.5, magnesium 1.9. Unable to locate the actual event on telemetry; reviewed with telemetry tach-no ectopy/no arrhythmia. Troponin pending. Evaluated by cardiology, beta kamaljit been added to med regime. Ambulating in hallway, tolerating exertion well. Consuming 25-50% of low fiber diet. Moderate output from colostomy. Afebrile, normal WBC. Objective - Vital Signs Vital signs: Vital Signs Temp 98.3 F 12/17/17 07:55 Pulse 84 12/17/17 11:01 Resp 18 12/17/17 07:55 BP 156/72 12/17/17 07:55 Pulse Ox 97 12/17/17 07:55 Intake & Output 12/16/17 12/17/17 12/17/17 18:59 06:59 18:59 Intake Total 280 Output Total 60 Balance 280 -60 Weight 86.5 kg Intake: IV 40 Sodium Chloride 0.45% 1, 40 000 ml @ 5 mls/hr IV . Q24H [facility] Rx#:[id number] Oral 240 Output: Stool 60 Other: Voiding Method Toilet Bedside Commode Bedpan # Voids 1 ABP, PAP, CO, CI - Last Documented Arterial Blood Pressure 131/70 - Exam PHYSICAL EXAM: VITAL SIGNS: As above GENERAL: Standing up next to bed, no acute distress HEENT: Conjunctivae normal. eyes normal. Oral mucosa moist NECK: No JVD. No thyroid enlargement. No LNs CARDIOVASCULAR: S1, S2 muffled. Systolic murmur RESPIRATION: Breath sounds diminished in the bases. No rhonchi , no crackles. No wheezing. ABDOMEN: Soft, status post surgery. Colostomy present with moderate liquid bowel movement, retention sutures present, dressing clean dry and intact, positive bowel sounds. LEGS: No edema. no swelling PSYCHIATRY: Alert and oriented -3, mood and affect normal. NERVOUS SYSTEM: Moves all 4 limbs. Diffuse weakness .No focal deficits. Microbiology 12/06/17 13:52 Blood Blood Culture - Final No Growth after 144 hours 12/08/17 19:40 Catheter Tip Catheter Tip Culture - Final 12/01/17 08:20 Blood Blood Culture Gram Stain - Final 12/01/17 08:20 Blood Blood Culture - Final Bacteroides fragilis 12/02/17 Unknown Sputum Gram Stain - Final 12/02/17 Unknown Sputum Sputum Culture - Final Fatoumata albicans 12/01/17 10:18 Urine,Voided Urine Culture - Final Enterococcus faecalis 12/01/17 08:20 Blood Blood Culture - Final - Labs CBC & Chem 7: 12/17/17 06:53 12/17/17 06:53 Labs: Abnormal Lab Results - Last 24 Hours (Table) 12/17/17 12/17/17 Range/Units 06:53 06:53 RBC 3.34 L (3.80-5.40) m/uL Hgb 10.0 L (11.4-16.0) gm/dL Hct 30.8 L (34.0-46.0) % Plt Count 499 H (150-450) k/uL Lymphocytes # 0.9 L (1.0-4.8) k/uL Sodium 136 L (137-145) mmol/L Alkaline Phosphatase 149 H (38-126) U/L Total Protein 5.9 L (6.3-8.2) g/dL Albumin 2.8 L (3.5-5.0) g/dL Assessment and Plan Assessment: -Septic shock shock resolved secondary to colitis. Bacteroides fragilis bacteremia. UTI with enterococcus faecalis. -Ischemic gangrenous bowel status post resection, diverting colostomy. Postop Ileus. -Hypertension -Hypothyroidism -COPD without any acute exacerbation -History of pacemaker for her history of third-degree heart block: Pacemaker was reevaluated without any problems no issues regarding that currently -Toxic encephalopathy from opiates which resolved. -Fluid overload and pulmonary edema secondary to IV fluids she received which improved with Lasix. -Nor epinephrine induced vasoconstriction , digital ischemia secondary to vasopressors, improved with some residual neuropathic symptoms. Positive pulses , evaluated by vascular surgery with digital vasospasm resolved, pain improving. -TPN for nutritional support -Wide complex tachycardia, atrial paced rhythm; not ventricular tachycardia as per cardiology's review of telemetry. Plan: Continue current medication regime ,monitoring and symptomatic treatment. Chest x-ray regarding new onset cough. Troponin pending . Beta kamaljit added to med regime as discussed above. Maintain remote telemetry. Potassium 3.5, supplement as per replacement protocol. Aggressive pulmonary toileting with incentive spirometer reinforced. Increase ambulation as tolerated .Antibiotics as per ID. PT/OT. The impression and plan of care has been dictated as directed. : I performed a history and examination of this patient, discussed the same with the dictator. I agree with the dictator's note ,documented as a scribe. Any additional findings or plans will be noted.
--- NOTE | 2017-12-17 15:38 | PN ---
PROGRESS NOTE DATE OF SERVICE: 12/17/2017 REASON FOR FOLLOWUP: Abdominal sepsis from ischemic colitis. INTERVAL HISTORY: The patient is afebrile. She is currently breathing comfortably. Denies significant chest pain or shortness of breath. She did have some cough, but no abdominal pain. No nausea, vomiting. Did have output in her colostomy bag. PHYSICAL EXAMINATION: Blood pressure 156/72 with a pulse of 73, temperature 98.3, she is 97% on 2 L nasal cannula. General description is an elderly female, up in the chair in no distress. RESPIRATORY SYSTEM: Unlabored breathing, decreased breath sounds in the bases, no wheeze. HEART: S1, S2. Regular rate and rhythm. ABDOMEN: Soft, no tenderness. EXTREMITIES: No edema of the feet. LABS: Hemoglobin is 10 with white count 8.5. BUN of 10, creatinine 0.4. DIAGNOSTIC IMPRESSION AND PLAN: Patient with ischemic colitis, status post laparotomy and colostomy. Patient has received about 2 weeks of antibiotics, should be more than enough. Will give her a short course of oral Cipro, Flagyl and Diflucan for about 5 days to finish a course of therapy with close outpatient followup. MMODL / IJN: [id number] /
--- NOTE | 2017-12-17 15:51 | XR ---
EXAMINATION TYPE: XR chest 1V portable DATE OF EXAM: 12/17/2017 HISTORY: Shortness of breath. COMPARISON: December 12, 2017 TECHNIQUE: Single view of the chest is submitted. FINDINGS: Demonstrated are scattered senescent parenchymal change. Left lower lobe opacity may reflect a combination of infiltrate, atelectasis and effusion. Overall no change appreciated. The heart is stable. NG tube has been removed. Dual-lead pacer is in place. Hilar and mediastinal structures are within normal limits. Degenerative changes are seen of the dorsal spine. IMPRESSION: 1. Left lower lobe opacity may reflect a combination of infiltrate, atelectasis and effusion. Overal l no change appreciated.
[2017-12-17] MEDS: POTASSIUM CHLORIDE ER 20 MEQ TAB.ER PO SCH ×2 (15:58→18:28)
--- NOTE | 2017-12-17 20:35 | P.DS ---
Providers Date of admission: 12/01/17 12:12 Expected date of discharge: 12/17/17 Attending physician: Vinny Mayen Consults: 12/01/17 12:12 Consult Physician Stat Consulting Provider: Noe Donahue Consult Reason/Comments: critical care Do you want consulting provider notified?: Already Contacted Consult Physician Stat Consulting Provider: Dakota Hutton Consult Reason/Comments: ab pain Do you want consulting provider notified?: Yes 12/01/17 12:34 Consult Physician Urgent Consulting Provider: Margi Pulliam Consult Reason/Comments: Sepsis Do you want consulting provider notified?: Yes 12/04/17 10:44 Consult Physician Routine Consulting Provider: Eddi Noguera Consult Reason/Comments: ischemic digits, left hand Do you want consulting provider notified?: Yes 12/05/17 00:19 Consult Physician Stat Consulting Provider: Oumar Hernandez Consult Reason/Comments: Runs of v tach Do you want consulting provider notified?: Already Contacted Primary care physician: Keila Young Hospital Course: Final Diagnoses: -Septic shock shock resolved secondary to colitis. Bacteroides fragilis bacteremia. UTI with enterococcus faecalis. -Ischemic gangrenous bowel status post resection, diverting colostomy. Postop Ileus,resolved. -Hypertension -Hypothyroidism -COPD without any acute exacerbation -History of pacemaker for her history of third-degree heart block: Pacemaker was reevaluated without any problems no issues regarding that currently -Toxic encephalopathy from opiates which resolved. -Fluid overload and pulmonary edema secondary to IV fluids she received which improved with Lasix. -Nor epinephrine induced vasoconstriction , digital ischemia secondary to vasopressors, improved with some residual neuropathic symptoms. Positive pulses , evaluated by vascular surgery with digital vasospasm resolved, pain improving. -Wide complex tachycardia, atrial paced rhythm; not ventricular tachycardia as per cardiology's review of telemetry. Hospital course:Septic shock secondary to ischemic bowel Interval history:Patient is 77-year-old female with a known history of hypertension, hypothyroidism, third-degree heart block with pacemaker, colitis/ stomach ulcer in the 1970s, migraine headache and COPD and multiple other medical problems came to ER with complaints of abdominal discomfort mainly in the lower abdomen and shakiness. Denied any fever. Denied any cough or sputum production. Patient does have chronic cough but no recent changes. No diarrhea. No headache or dizziness. No chest pain or shortness of breath. Denied any hematuria or dysuria. Patient says her symptoms began last night around 9:30 PM. Symptoms are getting worse and patient presently ER for further evaluation. Patient was hypotensive in the ER and was associated with normal saline 4 L and was started on levofed drip. Patient was transferred to MICU for intensive care. Patient has leukocytosis 14.4, lactic acid 5.5 and slightly abnormal urine sample. Patient was started on antibiotics and general surgery was consulted for possible ischemic colon. Chest x-ray diffuse interstitial pattern. Correlate for mild congestion. CT of the abdominal pelvis showed perinephric stranding on the left with bilateral perinephric fluid. Consider pyelonephritis. No obstruction is evident. Diverticulosis without acute diverticulitis of the sigmoid colon. pancreas prominence of the antiemetic duct Within the body and tail of the pancreas. Follow-up ERCP could be considered. Correlate for acute pancreatitis. 12/02/2017 Patient was intubated postoperatively. Patient had exploratory laparotomy with lysis of adhesions, colectomy and colostomy bag placement and as well as ventral hernia repair. Patient is still requiring high doses of Levophed. Continued on IV hydration and monitor EUGENIA's. Patient was found have severe leukocytosis today at 40.8. Vancomycin and Flagyl was added along with Zosyn. ID was consulted. Next a chest x-ray showed mild bibasilar atelectasis and small left-sided pleural effusion. Pulmonary and general surgery and ID following. 12/03/2017 Patient remains on mechanical ventilator today. Still on pressor support and gradually tapering down. Patient also having metabolic acidosis and was started on bicarb as well. Patient was also started on stress test steroids with hydrocortisone. Otherwise continued on norepinephrine. Chest x-ray showed bibasilar atelectasis and small left pleural effusion. Urine culture showed group B enterococcus. WBC count is still elevated at 46.9. Currently on broad-spectrum antibiotics. Creatinine 1.76 12/04/2017 Patient was successfully extubated today. Patient is off pressor support and otherwise receiving hydrocortisone. Chest x-ray showed small fluid overload. Urine culture showed group B enterococcus and blood cultures positive for gram-negative bacilli Patient was also noted to have discoloration of the fingers. Otherwise patient is being continued on antibiotics in the form of vancomycin and Zosyn. Currently patient is still drowsy. 12/05/2017 Patient is awake alert and able to answer simple questions. Complaining of thumb pain. Discoloration improving otherwise. Patient was noted to have ventricular tachycardia last night and was placed on amiodarone drip. Continued on hydrocortisone. Blood pressure is fairly stable. Denied any complaints of chest pain. No nausea vomiting or diarrhea. Urine culture showed enterococcus fecaliths. Blood cultures negative. Sputum culture showed Fatoumata. Pulmonary and cardiology and general surgery is following. Leukocytosis with WBC 29 Review of systems could not be obtained from the patient. Current medications reviewed. 12/06/17 77-year-old admitted secondary to ischemic colitis underwent a laparotomy transverse colectomy found to have diverticulitis as well and had a ventral hernia repair patient is in ICU for septic shock shock improved patient has enterococcus in the urine and gram-negative to anaerobic bacteria in the blood repeat blood cultures were obtained. Patient is on Zosyn to cover the still patient is also on empiric Diflucan vancomycin was discontinued patient is off pressor support patient remains to have an G2 patient does have TPN in place. NG tube is still draining. By the time I evaluated the patient patient received a narcotics for pain because of which the patient is bit sleepy and bit confused although was asking appropriate questions like when her NG tube will be out. Has sluggish bowel sounds on exam. 12/07/2017 Patient the continues to have an G2 no significant improvement compared to yesterday. Patient is on TPN at this time. 12/08/2017 Patient is to have nasogastric tube with the little bit of drainage confusion improved area patient is comparing of nausea. Probably secondary to antibiotics patient is Zosyn and metronidazole. Patient received Lasix with significant improvement in her respiratory status. Patient is urinating well. IJ central line was removed and patient is receiving PICC line. Patient had minimally worsening white blood cell count. Low potassium which will be supplemented secondary to Lasix she received an pulmonary edema improved after Lasix. 12/09/2017 Significant changes clinically overall. Patient still has an NG tube with minimal drainage. Respiratory status did improve sodium has gone down a little bit. Patient's vasospasm and bluish discoloration of the toe secondary to not epinephrine is getting better. Patient is off Nor-epinephrine. 12/10/2017 Patient can use to have NG tube slow and steady improvement. No overnight events. 12/11/2017, the patient is still having limited amount of activity in her colostomy bag. Some minimal amount of liquidy material accumulating. NG tube is in place. Surgical wound site is clean. No active respiratory difficulties or issues for now. Hemodynamically stable. Afebrile. Receiving TPN. Electrolytes are all within normal limits. She is on a combination of Zosyn and Diflucan. Using incentive spirometer. Sitting up on a chair. Her overall weakness is gradually improving. The active issue for now remains the slow recovery of the bowel activity post surgery. 12/12/2017 the patient is on a surgical floor. Unfortunately minimal amount of output is seen in the colostomy bag. Still on TPN. The abdominal wound is clean. No fever or chills. No other respiratory difficulties. She remains on Zosyn and Diflucan. NG tube is in place. 12/13/17 sitting up in chair, small liquidy stool in ostomy, no flatus. NG tube present. No nausea or vomiting. Maintained on TPN. Blood sugars controlled. Reports ambulation of minimal distance yesterday, sensation improving in bilateral hands and feet. Maintaining O2 sats in the high 90s on 2 L nasal cannula. Denies chest pain, palpitations or increasing shortness of breath. Abdominal pain controlled. Afebrile, normal WBC. Maintained on vancomycin, Zosyn, fluconazole, Diflucan. Sodium 134. 12/14/17 NG tube present, complains of nausea without emesis. Abdominal x- ray reporting ileus , resolving small bowel obstruction, possible small left pleural effusion. Not passing flatus, minimal output in colostomy Continues on TPN.lipids. Numbness, tingling of feet and hands improving. One person assist to bedside commode. Minimal ambulation to doorway. Afebrile. 12/15/2017 NG tube accidentally pulled out this morning. Increased ostomy output. Passing flatus. Tolerating popsicles with no nausea or vomiting. Ambulating into hallway with assistance. Foot pain improving. Abdominal pain controlled. 12/16/17 ambulating in hallway with walker & assist X1, tolerated exertion well. Tolerated clear liquids and diet advanced to full liquids as per surgery. Denies nausea or vomiting. Ostomy continues to produce moderate amount of stool. 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 Potassium 3.5, magnesium 1.9. Unable to locate the actual event on telemetry; reviewed with telemetry tach-no ectopy/no arrhythmia. Troponin pending. Evaluated by cardiology, beta kamaljit been added to med regime. Ambulating in hallway, tolerating exertion well. Consuming 25-50% of low fiber diet. Moderate output from colostomy. Afebrile, normal WBC. Significant, call improvement. Cleared by all consults for discharge. Patient being discharged to [facility] rehab in a.m. EXAM:GENERAL: Alert and oriented 3, no acute distress CARDIOVASCULAR: S1, S2 muffled. Systolic murmur RESPIRATION: Breath sounds diminished in the bases. ABDOMEN: Soft, status post surgery. Colostomy present with moderate liquid bowel movement, retention sutures present, dressing clean dry and intact, positive bowel sounds. LEGS: No edema. no swelling NERVOUS SYSTEM: No focal deficits. Microbiology 12/06/17 13:52 Blood Blood Culture - Final No Growth after 144 hours 12/08/17 19:40 Catheter Tip Catheter Tip Culture - Final 12/01/17 08:20 Blood Blood Culture Gram Stain - Final 12/01/17 08:20 Blood Blood Culture - Final Bacteroides fragilis 12/02/17 Unknown Sputum Gram Stain - Final 12/02/17 Unknown Sputum Sputum Culture - Final Fatoumata albicans 12/01/17 10:18 Urine,Voided Urine Culture - Final Enterococcus faecalis 12/01/17 08:20 Blood Blood Culture - Final Time taken: 35 min. Patient Condition at Discharge: Stable Plan - Discharge Summary Discharge Rx Participant: Yes New Discharge Prescriptions: New Metoprolol Tartrate [Lopressor] 25 mg PO BID #60 tab Cefuroxime Axetil [Ceftin] 500 mg PO BID #10 tab Fluconazole [Diflucan] 200 mg PO DAILY #5 tab metroNIDAZOLE [Flagyl] 500 mg PO Q8HR #15 tab Acetaminophen Tab [Tylenol] 650 mg PO Q4HR PRN tab PRN Reason: Fever And/ Or Pain Albuterol Nebulized [Ventolin Nebulized] 2.5 mg INHALATION RT-QID nebu Albuterol Nebulized [Ventolin Nebulized] 2.5 mg INHALATION Q4H PRN nebu PRN Reason: Shortness Of Breath Or Wheezing Benzocaine/Menthol Lozeng [Cepacol lozenge] 1 each MUCOUS MEM Q4HR PRN lozenge PRN Reason: Sore Throat Pantoprazole [Protonix] 40 mg PO AC-BRKFST tablet. Budesonide-Formot 160-4.5 Mcg [Symbicort 160-4.5 Mcg Inhaler] 2 puff INHALATION BID #1 inhaler Continue Levothyroxine Sodium [Synthroid] 125 mcg PO DAILY Ibuprofen [Motrin] 800 mg PO TID PRN PRN Reason: Pain Discontinued Losartan/Hydrochlorothiazide [Hyzaar 100-25 Tablet] 1 tab PO DAILY Promethaz-Cod 6.25-10 mg/5 ml [Phenergan with Codeine] 5 ml PO Q8H PRN PRN Reason: Cough Discharge Medication List Levothyroxine Sodium [Synthroid] 125 mcg PO DAILY 12/26/13 [History] Ibuprofen [Motrin] 800 mg PO TID PRN 12/01/17 [History] Acetaminophen Tab [Tylenol] 650 mg PO Q4HR PRN tab 12/17/17 [Rx] Albuterol Nebulized [Ventolin Nebulized] 2.5 mg INHALATION Q4H PRN nebu [Rx] Albuterol Nebulized [Ventolin Nebulized] 2.5 mg INHALATION RT-QID nebu [Rx] Benzocaine/Menthol Lozeng [Cepacol lozenge] 1 each MUCOUS MEM Q4HR PRN lozenge 12/17/17 [Rx] Budesonide-Formot 160-4.5 Mcg [Symbicort 160-4.5 Mcg Inhaler] 2 puff INHALATION BID #1 inhaler 12/17/17 [Rx] Cefuroxime Axetil [Ceftin] 500 mg PO BID #10 tab 12/17/17 [Rx] Fluconazole [Diflucan] 200 mg PO DAILY #5 tab 12/17/17 [Rx] Metoprolol Tartrate [Lopressor] 25 mg PO BID #60 tab 12/17/17 [Rx] Pantoprazole [Protonix] 40 mg PO AC-BRKFST tablet. 12/17/17 [Rx] metroNIDAZOLE [Flagyl] 500 mg PO Q8HR #15 tab 12/17/17 [Rx] Follow up Appointment(s)/Referral(s): Dakota Hutton MD [Medical Doctor] - 2 Weeks Keila Young DO [Primary Care Provider] - 3 Days (After discharge from subacute rehab) [facility], [NON-STAFF] - 1-2 Days Margi Pulliam MD [STAFF PHYSICIAN] - 1 Week Patient Instructions/Handouts: How to Stop Smoking (GEN), Colostomy Care (GEN) Activity/Diet/Wound Care/Special Instructions: CXR pending [facility] [place] [facility] Colostomy Care Instructions for Transitionto Rehab: LAst date of appliance change: 12.15.2017 Current Colostomy Care Supplies: Convatec Flange moldable #[id number] (three from the hospital) Convatec pouching system with filter #[id number] (three from the hospital) No sting prep pads (12 from the hospital) Also, One piece cut to fit Convatec Pouching system # [id number] (Two from the hospital) Mrs Lopez may utilize these better based on dexterity vs a two piece system Mrs Lopez is to empty the pouch in the bathroom when the pouch is 1/2 to 1/ 3 full The pocuhing system is to be changed every 3-5 days cbc,bmp in 3 days DIet: low FIber IS Q1H WA X 10 Discharge Disposition: TRANSFER TO SNF/ECF
[2017-12-17] MEDS: SYMBICORT 160-4.5 MCG INHALER INHALATION SCH (20:40)
[2017-12-17] MEDS: METOPROLOL TARTRATE 25 MG TAB PO SCH (21:01)
[2017-12-17] MEDS: ACETAMINOPHEN TAB 325 MG TAB PO PRN (21:02)
[2017-12-17] MEDS: ONDANSETRON 4 MG/2 ML VIAL IVP PRN (23:44)
[2017-12-18] MEDS: METOCLOPRAMIDE 5 MG/ML 2 ML VIAL IVP SCH ×3 (00:32→13:12)
[2017-12-18] MEDS: PIPERACILLIN-TAZOBACTAM 3.375 GM in DEXTROSE/WATER 1 50ML.BAG IVPB SCH ×2 (00:32→09:12)
[2017-12-18] MEDS: ALBUTEROL NEBULIZED 2.5 MG/3 ML INHALATION PRN (03:03)
[2017-12-18 08:02] LABS: Basophils # (A) 0.1 k/uL (0-0.2); Basophils % (A) 1 %; Eosinophils # (A) 0.6 k/uL (0-0.7); Eosinophils % (A) 8 %; HCT 29.1 % (34.0-46.0); HGB 9.5 gm/dL (11.4-16.0); Lymphocytes # (A) 1.1 k/uL (1.0-4.8); Lymphocytes % (A) 13 %; MCH 30.9 pg (25.0-35.0); MCHC 32.7 g/dL (31.0-37.0); MCV 94.6 fL (80.0-100.0); Mean Platelet Volume 7.1; Monocytes # (A) 0.8 k/uL (0-1.0); Monocytes % (A) 10 %; Neutrophils # (A) 5.2 k/uL (1.3-7.7); Neutrophils % (A) 66 %; Platelet Count 474 k/uL (150-450); RBC 3.07 m/uL (3.80-5.40); WBC 7.9 k/uL (3.8-10.6)
[2017-12-18 08:06] LABS: Calcium 8.7 mg/dL (8.4-10.2); Magnesium 1.7 mg/dL (1.6-2.3); Potassium 3.7 mmol/L (3.5-5.1)
[2017-12-18] MEDS: ALBUTEROL NEBULIZED 2.5 MG/3 ML INHALATION SCH ×3 (08:28→15:34)
[2017-12-18] MEDS: LEVOTHYROXINE 125 MCG TAB PO SCH (09:12)
[2017-12-18] MEDS: FLUCONAZOLE 100 MG TAB PO SCH (09:12)
[2017-12-18] MEDS: metroNIDAZOLE 500 MG TAB PO SCH (09:12)
[2017-12-18] MEDS: METOPROLOL TARTRATE 25 MG TAB PO SCH (09:12)
[2017-12-18] MEDS: PANTOPRAZOLE 40 MG TABLET PO SCH (09:12)
[2017-12-18] MEDS: HEPARIN SODIUM,PORCINE 5,000 UNIT/ML 1 ML VIAL SQ SCH (09:13)
[2017-12-18] MEDS: guaiFENesin-Coden 100-10MG/5ML 10 ML CUP PO PRN (09:18)
[2017-12-18] MEDS: SYMBICORT 160-4.5 MCG INHALER INHALATION SCH (11:13)
[2017-12-18] MEDS: IBUPROFEN 800 MG TAB PO PRN (12:02)
[2017-12-18] MEDS: ACETAMINOPHEN TAB 325 MG TAB PO PRN (12:04)
--- NOTE | 2017-12-18 12:50 | P.PN ---
Subjective Progress Note Date: 12/18/17 The patient is status post laparotomy with ostomy creation. She has been doing well. She is actually pending discharge at this time. Family is at bedside. She's tolerating diet. Objective - Vital Signs Vital signs: Vital Signs Temp 98.3 F 12/18/17 08:25 Pulse 78 12/18/17 11:23 Resp 18 12/18/17 08:25 BP 144/83 12/18/17 08:25 Pulse Ox 95 12/18/17 08:25 Intake & Output 12/17/17 12/18/17 12/18/17 18:59 06:59 18:59 Intake Total 437 1180 Output Total 60 Balance 437 1120 Intake: IV 180 Piperacillin-Tazobactam 3 100 .375 gm In Dextrose/Water 1 50ml.bag @ 12.5 mls/hr IVPB Q8HR [facility] Rx#: [id number] Sodium Chloride 0.45% 1, 80 000 ml @ 5 mls/hr IV . Q24H [facility] Rx#:[id number] Oral 437 1000 Output: Stool 60 Other: Voiding Method Toilet Bedside Commode # Voids 1 3 ABP, PAP, CO, CI - Last Documented Arterial Blood Pressure 131/70 - Exam GENERAL: Well developed and in no acute distress. Pleasant. HEENT: No sclera icterus. Extraocular movements grossly intact. Moist buccal mucosa. Head is atraumatic, normocephalic. Hears conversational speech. NG tube present NECK: Supple without lymphadenopathy. CHEST: Non-labored respirations and equal bilateral excursions. CARDIOVASCULAR: Regular rate and rhythm. Palpable 2+ radial pulses. ABDOMEN: [place] and patent without stool or flatus. MUSCULOSKELETAL: No clubbing, cyanosis or edema. NEUROLOGIC: No focal or lateralizing signs. PSYCH: Appropriate affect. Alert and oriented to person, place and time. SKIN: Good skin turgor. Well perfused. - Labs CBC & Chem 7: 12/18/17 07:15 12/18/17 07:15 Labs: Abnormal Lab Results - Last 24 Hours (Table) 12/18/17 12/18/17 Range/Units 07:15 07:15 RBC 3.07 L (3.80-5.40) m/uL Hgb 9.5 L (11.4-16.0) gm/dL Hct 29.1 L (34.0-46.0) % Plt Count 474 H (150-450) k/uL Sodium 135 L (137-145) mmol/L Assessment and Plan (1) Colostomy status Current Visit: Yes Status: Acute Code(s): Z93.3 - COLOSTOMY STATUS SNOMED Code(s): 851175743 (2) Ischemic colitis Current Visit: Yes Status: Acute Code(s): K55.9 - VASCULAR DISORDER OF INTESTINE, UNSPECIFIED SNOMED Code(s): 25975523 Plan: 1. Patient is pending discharge. 2. Follow-up with operating surgeon as an outpatient
--- NOTE | 2017-12-18 15:10 | P.DS ---
Providers Date of admission: 12/01/17 12:12 Attending physician: Vinny Estevez Consults: 12/01/17 12:12 Consult Physician Stat Consulting Provider: Noe Donahue Consult Reason/Comments: critical care Do you want consulting provider notified?: Already Contacted Consult Physician Stat Consulting Provider: Dakota Hutton Consult Reason/Comments: ab pain Do you want consulting provider notified?: Yes 12/01/17 12:34 Consult Physician Urgent Consulting Provider: Margi Pulliam Consult Reason/Comments: Sepsis Do you want consulting provider notified?: Yes 12/04/17 10:44 Consult Physician Routine Consulting Provider: Eddi Noguera Consult Reason/Comments: ischemic digits, left hand Do you want consulting provider notified?: Yes 12/05/17 00:19 Consult Physician Stat Consulting Provider: Oumar Hernandez Consult Reason/Comments: Runs of v tach Do you want consulting provider notified?: Already Contacted [facility] care [facility]: Please refer to the discharge summary from my nurse practitioner from yesterday without any significant changes except for discontinuation of Phenergan With Codeine Patient was seen and examined todayto continue physical exam findings patient is comparing of some soreness in the throat area secondary to prolong the NG tube. Patient Condition at Discharge: Stable Plan - Discharge Summary Discharge Rx Participant: Yes New Discharge Prescriptions: New Metoprolol Tartrate [Lopressor] 25 mg PO BID #60 tab Cefuroxime Axetil [Ceftin] 500 mg PO BID #10 tab Fluconazole [Diflucan] 200 mg PO DAILY #5 tab metroNIDAZOLE [Flagyl] 500 mg PO Q8HR #15 tab Acetaminophen Tab [Tylenol] 650 mg PO Q4HR PRN tab PRN Reason: Fever And/ Or Pain Albuterol Nebulized [Ventolin Nebulized] 2.5 mg INHALATION RT-QID nebu Albuterol Nebulized [Ventolin Nebulized] 2.5 mg INHALATION Q4H PRN nebu PRN Reason: Shortness Of Breath Or Wheezing Benzocaine/Menthol Lozeng [Cepacol lozenge] 1 each MUCOUS MEM Q4HR PRN lozenge PRN Reason: Sore Throat Pantoprazole [Protonix] 40 mg PO AC-BRKFST tablet. Budesonide-Formot 160-4.5 Mcg [Symbicort 160-4.5 Mcg Inhaler] 2 puff INHALATION BID #1 inhaler Continue Levothyroxine Sodium [Synthroid] 125 mcg PO DAILY Ibuprofen [Motrin] 800 mg PO TID PRN PRN Reason: Pain Discontinued Losartan/Hydrochlorothiazide [Hyzaar 100-25 Tablet] 1 tab PO DAILY Promethaz-Cod 6.25-10 mg/5 ml [Phenergan with Codeine] 5 ml PO Q8H PRN PRN Reason: Cough Discharge Medication List Levothyroxine Sodium [Synthroid] 125 mcg PO DAILY 12/26/13 [History] Ibuprofen [Motrin] 800 mg PO TID PRN 12/01/17 [History] Acetaminophen Tab [Tylenol] 650 mg PO Q4HR PRN tab 12/17/17 [Rx] Albuterol Nebulized [Ventolin Nebulized] 2.5 mg INHALATION Q4H PRN nebu [Rx] Albuterol Nebulized [Ventolin Nebulized] 2.5 mg INHALATION RT-QID nebu [Rx] Benzocaine/Menthol Lozeng [Cepacol lozenge] 1 each MUCOUS MEM Q4HR PRN lozenge 12/17/17 [Rx] Budesonide-Formot 160-4.5 Mcg [Symbicort 160-4.5 Mcg Inhaler] 2 puff INHALATION BID #1 inhaler 12/17/17 [Rx] Cefuroxime Axetil [Ceftin] 500 mg PO BID #10 tab 12/17/17 [Rx] Fluconazole [Diflucan] 200 mg PO DAILY #5 tab 12/17/17 [Rx] Metoprolol Tartrate [Lopressor] 25 mg PO BID #60 tab 12/17/17 [Rx] Pantoprazole [Protonix] 40 mg PO AC-BRKFST tablet. 12/17/17 [Rx] metroNIDAZOLE [Flagyl] 500 mg PO Q8HR #15 tab 12/17/17 [Rx] Follow up Appointment(s)/Referral(s): Dakota Hutton MD [Medical Doctor] - 2 Weeks Keila Young DO [Primary Care Provider] - 3 Days (After discharge from subacute rehab) [facility], [NON-STAFF] - 1-2 Days Margi Pulliam MD [STAFF PHYSICIAN] - 1 Week Patient Instructions/Handouts: How to Stop Smoking (GEN), Colostomy Care (GEN) Activity/Diet/Wound Care/Special Instructions: CXR pending [facility] [place] [facility] Colostomy Care Instructions for Transitionto Rehab: LAst date of appliance change: 12.15.2017 Current Colostomy Care Supplies: Convatec Flange moldable #[id number] (three from the hospital) Convatec pouching system with filter #[id number] (three from the hospital) No sting prep pads (12 from the hospital) Also, One piece cut to fit [employer]vate[employer] Pouching system # [id number] (Two from the hospital) Mrs Lopez may utilize these better based on dexterity vs a two piece system Mrs Lopez is to empty the pouch in the bathroom when the pouch is 1/2 to 1/ 3 full The pocuhing system is to be changed every 3-5 days cbc,bmp in 3 days DIet: low FIber IS Q1H WA X 10 Discharge Disposition: TRANSFER TO SNF/ECF
[2017-12-18 15:57] VITALS: BP 145/78; PULSE 63; RESP 12; TEMP 98.2
--- NOTE | 2017-12-18 17:21 | PN ---
PROGRESS NOTE DATE OF SERVICES: 12/18/2017. REASON FOR CONSULTATION: Ischemic colitis with . INTERVAL HISTORY: The patient is currently afebrile. She is seems comfortable. Complaining of some sore throat and coughing spell last night. No difficulty breathing or any cough today. No abdominal pain or any diarrhea. EXAMINATION: Blood pressure 145/78 with pulse of 73. Temperature 98.2. She is 93% on room air. General description is an elderly female up in the chair in no distress. RESPIRATORY SYSTEM: Unlabored breathing. Decreased intensity of breath sounds. No wheeze. HEART: S1, S2. Regular rate and rhythm. ABDOMEN: Soft, no tenderness. LABS: Hemoglobin 9.5, white count 7.9, BUN of 8, creatinine 0.93. DIAGNOSTIC IMPRESSION AND PLAN: Patient with ischemic colitis in a patient who did have a laparotomy and the patient's white count is normal. She has had about 2 weeks of intensive IV antibiotic therapy. A short course of oral Ceftin and Flagyl will be provided for 5 days on discharge with close outpatient followup. MMODL / IJN: [id number] /
== END 2017-12-18 16:30 | DRG 853 ==
LOC: EC 08:12 → 6ICU 12:12 → 3SUR 12-11 23:47
PROVIDERS: ADMIT Internal Medicine; ATTEND Internal Medicine
PROC: 0WJF4ZZ Inspection of Abdominal Wall, Percutaneous Endoscopic Approach (ICD-10-PCS; 2017-12-01)
PROC: 0D1L0Z4 Bypass Transverse Colon to Cutaneous, Open Approach (ICD-10-PCS; 2017-12-01)
PROC: 0DTM0ZZ Resection of Descending Colon, Open Approach (ICD-10-PCS; principal; 2017-12-01 18:49)
PROC: 0DBL0ZZ Excision of Transverse Colon, Open Approach (ICD-10-PCS; 2017-12-01 18:49)
PROC: 0WQF0ZZ Repair Abdominal Wall, Open Approach (ICD-10-PCS; 2017-12-01 18:49)
PROC: 3E0336Z Introduction of Nutritional Substance into Peripheral Vein, Percutaneous Approach (ICD-10-PCS; 2017-12-07)
PROC: 02HV33Z Insertion of Infusion Device into Superior Vena Cava, Percutaneous Approach (ICD-10-PCS; 2017-12-09)
DX: A41.4 Sepsis due to anaerobes (principal); J18.9 Pneumonia, unspecified organism; R65.21 Severe sepsis with septic shock; K55.049 Acute infarction of large intestine, extent unspecified; G92 Toxic encephalopathy; N12 Tubulo-interstitial nephritis, not specified as acute or chronic; E27.40 Unspecified adrenocortical insufficiency; E87.1 Hypo-osmolality and hyponatremia; E87.2 Acidosis; I47.2 Ventricular tachycardia; J44.0 Chronic obstructive pulmonary disease with (acute) lower respiratory infection; J98.11 Atelectasis; K56.7 Ileus, unspecified; N17.9 Acute kidney failure, unspecified; K55.8 Other vascular disorders of intestine; J90 Pleural effusion, not elsewhere classified; B95.2 Enterococcus as the cause of diseases classified elsewhere; E77.8 Other disorders of glycoprotein metabolism; E83.42 Hypomagnesemia; E88.09 Other disorders of plasma-protein metabolism, not elsewhere classified; F17.200 Nicotine dependence, unspecified, uncomplicated; I10 Essential (primary) hypertension; I25.9 Chronic ischemic heart disease, unspecified; K43.9 Ventral hernia without obstruction or gangrene; M19.90 Unspecified osteoarthritis, unspecified site; R09.02 Hypoxemia; E87.6 Hypokalemia; I99.8 Other disorder of circulatory system; T50.1X5A Adverse effect of loop [high-ceiling] diuretics, initial encounter; T40.605A Adverse effect of unspecified narcotics, initial encounter; M54.9 Dorsalgia, unspecified; R01.1 Cardiac murmur, unspecified; E89.0 Postprocedural hypothyroidism; K57.30 Diverticulosis of large intestine without perforation or abscess without bleeding; E86.1 Hypovolemia; T50.995A Adverse effect of other drugs, medicaments and biological substances, initial encounter; T44.4X5A Adverse effect of predominantly alpha-adrenoreceptor agonists, initial encounter; Z85.828 Personal history of other malignant neoplasm of skin; Z87.11 Personal history of peptic ulcer disease; Z90.710 Acquired absence of both cervix and uterus; Z95.0 Presence of cardiac pacemaker; Z96.652 Presence of left artificial knee joint; Z90.49 Acquired absence of other specified parts of digestive tract; Z79.890 Hormone replacement therapy; Z79.52 Long term (current) use of systemic steroids; Z79.899 Other long term (current) drug therapy; Z88.6 Allergy status to analgesic agent; Z88.5 Allergy status to narcotic agent; Z91.048 Other nonmedicinal substance allergy status; Z80.0 Family history of malignant neoplasm of digestive organs; Z80.41 Family history of malignant neoplasm of ovary; Z80.43 Family history of malignant neoplasm of testis; Y92.239 Unspecified place in hospital as the place of occurrence of the external cause
CPT/HCPCS: 36415; 36569; 36600; 71045; 71046; 74018; 74021; 74177; 76937; 80048; 80053; 80202; 81001; 81003; 82040; 82150; 82330; 82533; 82550; 82553; 82805; 83036; 83605; 83690; 83735; 84100; 84132; 84478; 84484; 85025; 85027; 85610; 85730; 87040; 87070; 87077; 87086; 87186; 87205; 88302; 88307; 93005; 93306; 94002; 94003; 94640; 96361; 96365; 96366; 96375; 99291

== ENCOUNTER → 2018-02-17 | Outpatient (CLI) | payer MEDICARE, BC ==
--- NOTE | 2018-02-18 15:06 | MM ---
Reason for exam: screening (asymptomatic). Last mammogram was performed 1 year and 1 month ago. History: Patient is postmenopausal and history of other cancer. Physical Findings: A clinical breast exam by your physician is recommended on an annual basis and results should be correlated with mammographic findings. MG 3D Screening Mammo W/Cad Bilateral CC and MLO view(s) were taken. Prior study comparison: January 04, 2017, left breast MG 3d diag mammo w/cad LT. June 24, 2016, bilateral MG 3d screening mammo w/cad. There are scattered fibroglandular densities. Pacer over left chest. No significant changes when compared with prior studies. ASSESSMENT: Benign, BI-RAD 2 RECOMMENDATION: Routine screening mammogram of both breasts in 1 year.
== END | disposition home or self-care (01) ==
LOC: RADMAMWWP 09:09
PROVIDERS: ATTEND Family Medicine
DX: Z12.31 Encounter for screening mammogram for malignant neoplasm of breast (principal)
CPT/HCPCS: 77063; 77067

== ENCOUNTER → 2018-05-03 | Outpatient (CLI) | payer MEDICARE, BC ==
[2018-05-03 10:21] LABS: HCT 40.5 % (34.0-46.0); HGB 12.8 gm/dL (11.4-16.0); MCH 29.3 pg (25.0-35.0); MCHC 31.6 g/dL (31.0-37.0); MCV 92.9 fL (80.0-100.0); Mean Platelet Volume 7.4; Platelet Count 228 k/uL (150-450); RBC 4.36 m/uL (3.80-5.40); RDW 14.2 % (11.5-15.5); WBC 8.2 k/uL (3.8-10.6)
[2018-05-03 10:41] LABS: Potassium 5.4 mmol/L (3.5-5.1)
== END | disposition home or self-care (01) ==
LOC: LABPAT 09:19
PROVIDERS: ATTEND Surgery
DX: Z01.812 Encounter for preprocedural laboratory examination (principal); K55.9 Vascular disorder of intestine, unspecified
CPT/HCPCS: 80051; 85027; 93005

== ENCOUNTER → 2018-05-03 | Outpatient (CLI) | payer MEDICARE, BC ==
--- NOTE | 2018-05-03 14:26 | NM ---
EXAMINATION TYPE: NM bone 3 phase DATE OF EXAM: 05/03/2018 COMPARISON: NONE HISTORY: Left knee pain for a few weeks with prior left knee replacement approximately 10 years ago a nd right knee replacement approximate 4 years ago. TECHNIQUE: Triple phase bone scintigraphy was performed following the injection of 26.5 mCi Tc 99m MD P. Immediate images and 3 hours post injection images acquired. FINDINGS: Photopenia seen bilaterally at the knee joints from bilateral no arthroplasties. There is symmetric f low seen to the bilateral lower extremities and symmetric blood pool. Multifocal uptake surrounding b oth knee prosthesis are patchy and delayed images likely relating to surrounding degenerative change rather than septic or aseptic loosening. IMPRESSION: 1. No scintigraphic evidence of septic or aseptic loosening of the bilateral knee prostheses. 2. Multifocal periprosthetic bilateral uptake on delayed images only suggest surrounding degenerative change. Correlation with knee radiographs is recommended.
== END | disposition home or self-care (01) ==
LOC: RADNMMAIN 08:43
PROVIDERS: ATTEND Orthopaedic Surgery
DX: M25.562 Pain in left knee (principal); M12.9 Arthropathy, unspecified; K55.9 Vascular disorder of intestine, unspecified; Z01.812 Encounter for preprocedural laboratory examination
CPT/HCPCS: 85652; 86140; 78315; 36415; A9503

== ENCOUNTER 2018-05-12 12:01 | Day surgery (SDC) | payer MEDICARE, BC ==
[2018-05-09 16:18] VITALS: BMI 25.4
[~2018-05-12 12:01] MED LIST: LACTATED RINGERS 1,000 ML IV SCH; LIDOCAINE 1% 20 ML VIAL (10MG/ML) FOR IV START INTRADERMA PRN
[2018-05-12 12:25] VITALS: TEMP 97
[2018-05-12] MEDS ORDERED: LIDOCAINE 1% INJ 10MG/ML (20 ML MDV) ONE (12:48)
[2018-05-12] MEDS ORDERED: PROPOFOL 10 MG/ML 20 ML VIAL IV ONE (12:48)
--- NOTE | 2018-05-12 12:58 | P.GSHP ---
History of Present Illness H&P Date: 05/12/18 Chief Complaint: Change in bowel habits Patient here today for colonoscopy. 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 Patient doing better at this time. He is scheduled for colostomy reversal tomorrow. Intermittent diarrhea. No rectal bleeding. 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 History of Any Multi-Drug Resistant Organisms: None Reported Past Surgical History: Appendectomy, Hernia Repair, Hysterectomy, Joint Replacement, Orthopedic Surgery, Pacemaker Additional Past Surgical History / Comment(s): LAPROSCOPIC LYSIS OF ADHESIONS WITH COLECTOMY, TTT, loop recorder, pacemaker, skin cancer removal L cheek/skin graft, inguinal hernia repairs x3, BECCA total knee bilateral knee arthroscopies, partial thyroidectomy, pain clinic procedures (cervical), bilateral lasik eye surgery for vision correction. right shoulder replacement Past Anesthesia/Blood Transfusion Reactions: No Reported Reaction Type of Cardiac Device: Permanent Pacemaker Device Placement Date:: 2015 Smoking Status: Current some day smoker - Past Family History Son(s) Family Medical History: Cancer Additional Family Medical History / Comment(s): TESTICULAR CA IN SONS X2 Daughter(s) Family Medical History: Cancer Additional Family Medical History / Comment(s): OVARIAN CANCER Mother Family Medical History: Cancer Additional Family Medical History / Comment(s): STOMACH CANCER Father Family Medical History: No Reported History Additional Family Medical History / Comment(s): Father was healthy Medications and Allergies Home Medications Medication Instructions Recorded Confirmed Type Ibuprofen [Motrin] 800 mg PO TID PRN 12/01/17 05/12/18 History Acetaminophen Tab [Tylenol] 650 mg PO Q4HR PRN tab 12/17/17 05/12/18 Rx Albuterol Nebulized [Ventolin 2.5 mg INHALATION Q4H PRN nebu 12/17/17 05/12/18 Rx Nebulized] Albuterol Inhaler [Ventolin Hfa 1 - 2 puff INHALATION RT-Q6H PRN 05/09/18 History Inhaler] Budesonide-Formot 160-4.5 Mcg 2 puff INHALATION BID PRN 05/09/18 05/12/18 History [Symbicort 160-4.5 Mcg Inhaler] Meclizine [Antivert] 25 mg PO BID PRN 05/09/18 05/12/18 History NIFEdipine [NIFEdipine ER] 30 mg PO QAM 05/09/18 05/12/18 History Levothyroxine Sodium [Synthroid] 137 mcg PO DAILY 05/12/18 05/12/18 History Allergies Allergy/AdvReac Type Severity Reaction Status Date / Time acetaminophen [From [place]] Allergy Nausea & Verified 05/12/18 12:11 Vomiting hydrocodone Allergy Nausea & Verified 05/12/18 12:11 Vomiting hydrocodone bitartrate Allergy Nausea & Verified 05/12/18 12:11 [From Vicodin] Vomiting Iodinated Contrast- Oral and Allergy Nausea & Verified 05/12/18 12:11 IV Dye Vomiting hydromorphone [From Dilaudid] AdvReac Vomiting Verified 05/12/18 12:13 grass,mold,dust,cats,trees Allergy Unknown Uncoded 05/12/18 12:11 tape Allergy paper tape Uncoded 05/12/18 12:11 only Surgical - Exam Vital Signs Temp Pulse Resp BP Pulse Ox 97 F L 77 16 127/61 96 05/12/18 12:24 05/12/18 12:24 05/12/18 12:24 05/12/18 12:24 05/12/18 12:24 Physical exam: General: Well-developed, well-nourished HEENT: Normocephalic, sclerae nonicteric Abdomen: Nontender, nondistended, right-sided ostomy Extremities: No edema Neuro: Alert and oriented Assessment and Plan (1) Change in bowel habits Narrative/Plan: Will proceed with colonoscopy through anus and ostomy at this time. Current Visit: Yes Status: Acute Code(s): R19.4 - CHANGE IN BOWEL HABIT SNOMED Code(s): 529612991
--- NOTE | 2018-05-12 13:19 | P.PCN ---
Date of Procedure: 05/12/18 Procedure(s) Performed: PREOPERATIVE DIAGNOSIS: Change in bowel habits, history of ischemic colitis POSTOPERATIVE DIAGNOSIS: Mild nonspecific colitis involving rectum and sigmoid colon, diverticulosis PROCEDURE: Colonoscopy with biopsy ANESTHESIA: MAC SURGEON: Dakota Hutton M.D. SPECIMENS: Colitis ENDOSCOPIC PROCEDURE: The patient was placed on the endoscopy table in the left decubitus position. The Olympus colonoscope was inserted into the anus and passed under direct visualization to the proximal sigmoid colon. The patient had extensive diverticulosis seen. 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 A few biopsies were taken of the sigmoid and rectum. There were no polypoid lesions seen. I was not able to reach the staple line. The patient was then placed in the supine position. The scope was advanced into the right side ostomy. The scope was advanced to the base of the cecum. No abnormalities were identified in the cecum and ascending or proximal transverse colon. The patient was taken to the recovery room in stable condition per anesthesia guidelines. RECOMMENDATIONS: Wait biopsy results. Proceed with reversal tomorrow.
[2018-05-12 14:00] VITALS: BP 137/72; PULSE 75; RESP 18
== END 2018-05-12 14:20 | disposition home or self-care (01) ==
LOC: ORWHC2ENDO 12:01
PROVIDERS: ATTEND Surgery
DX: K52.89 Other specified noninfective gastroenteritis and colitis (principal); K57.30 Diverticulosis of large intestine without perforation or abscess without bleeding; Z90.49 Acquired absence of other specified parts of digestive tract; Z93.3 Colostomy status; Z87.11 Personal history of peptic ulcer disease; J44.9 Chronic obstructive pulmonary disease, unspecified; M19.072 Primary osteoarthritis, left ankle and foot; M17.0 Bilateral primary osteoarthritis of knee; F17.200 Nicotine dependence, unspecified, uncomplicated; I10 Essential (primary) hypertension; E07.9 Disorder of thyroid, unspecified; I44.2 Atrioventricular block, complete; Z95.0 Presence of cardiac pacemaker; Z85.828 Personal history of other malignant neoplasm of skin; Z80.43 Family history of malignant neoplasm of testis; Z80.41 Family history of malignant neoplasm of ovary; Z80.0 Family history of malignant neoplasm of digestive organs; Z79.890 Hormone replacement therapy; Z79.899 Other long term (current) drug therapy; Z91.041 Radiographic dye allergy status; Z88.5 Allergy status to narcotic agent; Z91.09 Other allergy status, other than to drugs and biological substances
CPT/HCPCS: 88305; 44388; 45331; J2001; J2704; 44389

== ENCOUNTER 2018-05-13 07:45 | Inpatient (IN) | payer MEDICARE, BC ==
[2018-05-09 16:06] VITALS: BMI 25.4
[~2018-05-13 07:45] MED LIST changes: +DEXAMETHASONE SOD PHOSPHATE 10 MG/ML 1 ML VIAL IV ONE; +HEPARIN SODIUM,PORCINE 5,000 UNIT/ML 1 ML VIAL SQ ONE; -LACTATED RINGERS 1,000 ML IV SCH; -LIDOCAINE 1% 20 ML VIAL (10MG/ML) FOR IV START INTRADERMA PRN; +MIDAZOLAM 2 MG/2 ML VIAL IV PRN; +ONDANSETRON 4 MG/2 ML VIAL IVP ONE; +ceFAZolin IN SWFI 2 GM/20 ML SYRINGE IVP ONE; +fentaNYL (PF) 50 MCG/ML 2 ML AMP IV PRN; +metroNIDAZOLE-NS PMX 500 MG in SALINE 1 100ML.BAG IVPB STA
[2018-05-13] MEDS ORDERED: MELOXICAM 7.5 MG TAB PO STA (11:22)
[2018-05-13] MEDS ORDERED: ALVIMOPAN 12 MG CAPSULE PO STA (11:24)
[2018-05-13] MEDS ORDERED: LIDOCAINE 1% 20 ML VIAL (10MG/ML) FOR IV START SQ ONE (11:39)
[2018-05-13] MEDS: LACTATED RINGERS 1,000 ML IV SCH ×3 (11:42→23:04)
[2018-05-13] MEDS ORDERED: MIDAZOLAM 2 MG/2 ML VIAL IV ONE (11:52)
[2018-05-13] MEDS ORDERED: fentaNYL (PF) 50 MCG/ML 2 ML AMP IV ONE (11:52)
[2018-05-13] MEDS ORDERED: NALOXONE 0.4 MG/ML 1 ML VIAL IV PRN ×2 (12:52→14:41)
[2018-05-13] MEDS ORDERED: diphenhydrAMINE 50 MG/ML 1 ML VIAL IVP PRN (12:52)
[2018-05-13] MEDS ORDERED: ROPIVACAINE 250 MG, HYDROMORPHONE (PF) 5 MG in SODIUM CHLORIDE 0.9% 200 ML EPIDURAL PRN (13:00)
--- NOTE | 2018-05-13 13:08 | P.GSHP ---
History of Present Illness H&P Date: 05/13/18 Chief Complaint: Ischemic colitis Patient well known to our service. On December 01 of last year the patient underwent a partial colectomy for ischemic colitis. A shunt was left with a end colostomy right upper quadrant from the proximal transverse colon. Staple line distally was at the distal descending colon. Patient presented today for colostomy reversal. Yesterday's colonoscopy did not reveal any definite abnormalities with the exception of diverticulosis and mild disuse colitis. Patient does feel some swelling at the ostomy site. At the time of her first surgery the patient had 2 small incisional hernias. The patient had a previous history of hernia repair and appendectomy. 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 History of Any Multi-Drug Resistant Organisms: None Reported Past Surgical History: Appendectomy, Hernia Repair, Hysterectomy, Joint Replacement, Orthopedic Surgery, Pacemaker Additional Past Surgical History / Comment(s): LAPROSCOPIC LYSIS OF ADHESIONS WITH COLECTOMY, TTT, loop recorder, pacemaker, skin cancer removal L cheek/skin graft, inguinal hernia repairs x3, BECCA total knee bilateral knee arthroscopies, partial thyroidectomy, pain clinic procedures (cervical), bilateral lasik eye surgery for vision correction. right shoulder replacement Past Anesthesia/Blood Transfusion Reactions: No Reported Reaction Type of Cardiac Device: Permanent Pacemaker Device Placement Date:: 2015 Smoking Status: Current some day smoker - Past Family History Son(s) Family Medical History: Cancer Additional Family Medical History / Comment(s): TESTICULAR CA IN SONS X2 Daughter(s) Family Medical History: Cancer Additional Family Medical History / Comment(s): OVARIAN CANCER Mother Family Medical History: Cancer Additional Family Medical History / Comment(s): STOMACH CANCER Father Family Medical History: No Reported History Additional Family Medical History / Comment(s): Father was healthy Medications and Allergies Home Medications Medication Instructions Recorded Confirmed Type Ibuprofen [Motrin] 800 mg PO TID PRN 12/01/17 05/13/18 History Acetaminophen Tab [Tylenol] 650 mg PO Q4HR PRN tab 12/17/17 05/13/18 Rx Albuterol Nebulized [Ventolin 2.5 mg INHALATION Q4H PRN nebu 12/17/17 05/13/18 Rx Nebulized] Albuterol Inhaler [Ventolin Hfa 1 - 2 puff INHALATION RT-Q6H PRN 05/09/18 History Inhaler] Budesonide-Formot 160-4.5 Mcg 2 puff INHALATION BID PRN 05/09/18 05/13/18 History [Symbicort 160-4.5 Mcg Inhaler] Meclizine [Antivert] 25 mg PO BID PRN 05/09/18 05/13/18 History NIFEdipine [NIFEdipine ER] 30 mg PO QAM 05/09/18 05/13/18 History Levothyroxine Sodium [Synthroid] 137 mcg PO DAILY 05/12/18 05/13/18 History Ondansetron [Zofran] 4 mg PO PRN 05/13/18 History Allergies Allergy/AdvReac Type Severity Reaction Status Date / Time acetaminophen [From [place]] Allergy Nausea & Verified 05/13/18 11:07 Vomiting hydrocodone Allergy Nausea & Verified 05/13/18 11:07 Vomiting hydrocodone bitartrate Allergy Nausea & Verified 05/13/18 11:07 [From Vicodin] Vomiting Iodinated Contrast- Oral and Allergy Nausea & Verified 05/13/18 11:07 IV Dye Vomiting hydromorphone [From Dilaudid] AdvReac Vomiting Verified 05/13/18 11:07 grass,mold,dust,cats,trees Allergy Unknown Uncoded 05/13/18 11:07 tape Allergy paper tape Uncoded 05/13/18 11:07 only Surgical - Exam Vital Signs Temp Pulse Resp BP Pulse Ox 97.7 F 74 16 135/61 94 L 05/13/18 11:30 05/13/18 11:30 05/13/18 11:30 05/13/18 11:30 05/13/18 11:30 Physical exam: General: Well-developed, well-nourished HEENT: Normocephalic, sclerae nonicteric Abdomen: Nontender, nondistended, incision well healed, ostomy right upper quadrant Extremities: No edema Neuro: Alert and oriented Results - Labs 01/25/19 11:36 Diabetes panel 05/13/18 Range/Units 11:36 Potassium 4.5 (3.5-5.1) mmol/L Pituitary panel 05/13/18 Range/Units 11:36 Potassium 4.5 (3.5-5.1) mmol/L Adrenal panel 05/13/18 Range/Units 11:36 Potassium 4.5 (3.5-5.1) mmol/L Assessment and Plan (1) Ischemic colitis Narrative/Plan: Will proceed with colostomy reversal at this time. Risks of bleeding, infection , leak, abscess, possible need for ostomy, bladder and bowel injury, hernia, diarrhea, anesthesia related complications were reviewed. She understands and wishes to proceed. Current Visit: No Status: Acute Code(s): K55.9 - VASCULAR DISORDER OF INTESTINE, UNSPECIFIED SNOMED Code(s): 52503688
[2018-05-13] MEDS ORDERED: GLYCOPYRROLATE 0.2 MG/ML 2 ML VIAL ONE (13:46)
[2018-05-13] MEDS ORDERED: fentaNYL (PF) 50 MCG/ML 2 ML AMP ONE (13:46)
[2018-05-13] MEDS ORDERED: MIDAZOLAM 2 MG/2 ML VIAL ONE (13:46)
[2018-05-13] MEDS ORDERED: PROPOFOL 10 MG/ML 20 ML VIAL IV ONE (13:46)
[2018-05-13] MEDS ORDERED: ROCURONIUM BROMIDE 10 MG/ML 10 ML VIAL IV ONE (13:46)
[2018-05-13] MEDS ORDERED: NEOSTIGMINE 1 MG/ML 10 ML VIAL ONE (13:46)
[2018-05-13] MEDS ORDERED: SODIUM CHLORIDE 0.9% 50 ML with ceFAZolin 2,000 MG IV ONE ×2 (14:05)
[2018-05-13] MEDS ORDERED: LACTATED RINGERS 1,000 ML IV ONE ×2 (15:43→16:26)
[2018-05-13] MEDS: ROPIVACAINE 250 MG, fentaNYL (PF) 625 MCG in SODIUM CHLORIDE 0.9% 188 ML EPIDURAL PRN ×2 (17:20→17:49)
--- NOTE | 2018-05-13 17:29 | P.OP ---
Date of Procedure: 05/13/18 Procedure(s) Performed: PREOPERATIVE DIAGNOSIS: Ischemic colitis POSTOPERATIVE DIAGNOSIS: Same PROCEDURE: Colostomy reversal, partial omentectomy, lysis of adhesions SURGEON: Brennen EBL: 150 mL ANESTHESIA: General COMPLICATIONS: None OPERATIVE PROCEDURE: Patient place in the operative table in the supine position. The patient was placed under general anesthesia. The stoma was closed using a pursestring 2-0 Vicryl stitch. The abdomen was prepped and draped in usual sterile fashion. An elliptical incision was made around the colostomy. Dissection through the subcutaneous fat took place using electrocautery. Entrance into the peritoneal cavity took place. The stoma was fully mobilized and reduced back into the peritoneal cavity. At that time a vertical incision was made using a scalpel. The subcutaneous fat was divided using electrocautery. The fascia was divided using cautery as well. The Bookwalter retractor was utilized. The patient had adhesions in the abdominal cavity that were lysed using both sharp and blunt and electrocautery. A portion of the omentum was resected using the LigaSure device. The bowel was reduced back into the upper abdomen. The proximal colon was inspected. Adhesions were again lysed. We had adequate length for the transverse colon to reach down to the pelvis it was felt at that time. Dissection in the pelvis then took place. The staple line at the descending colon distally was identified. This was able to be brought towards the midline. This was free of acute inflammatory changes. Approximately 6 cm or so of the colon proximal to the ostomy was transected using a linear 75 stapler. The mesentery was divided using the LigaSure device. I was unable to have adequate length for a side-to- side anastomosis between the transverse colon and distal descending colon. A 3- 0 GI silk stay suture was placed along the antimesenteric border of the 2 portions of bowel. Following that the antimesenteric staple line was excised and the linear 75 stapler was fired in a longitudinal fashion along the antimesenteric border. The remaining defect was closed using a TX 60 device. A new 3-0 GI silk crotch stitch was placed. The TX 60 stapler line was imbricated using interrupted 3-0 silk sutures. There was no tension on the staple line. There appeared to be excellent blood supply as well. The abdomen was then irrigated thoroughly. The liver, stomach, visualized colon, and small bowel appeared normal. The ostomy in the right upper quadrant fascial opening was then exposed from our midline incision by elevating the fat off of the fascia. The defect was then closed using [id number] 0 Ethibond sutures. The clean table was then used after we changed our gown and gloves and redraped with sticky drapes. The fish was utilized for the fascial closure. The midline fascia was then reapproximated using 3 separate double-stranded #1 PDS sutures. A drain was then placed anterior to the fascial closure exiting from the right lower quadrant using a separate stab incision. This was sutured in place using a 3-0 silk stitch. The subcutaneous tissues were closed using 2-0 Vicryl sutures. The skin was then closed using sumaya. Sterile dressings were then applied. DISPOSITION: Stable to recovery room
[2018-05-13] MEDS: FAMOTIDINE 20 MG/2 ML VIAL IV SCH (20:54)
[2018-05-13] MEDS: D5-0.45% NACL WITH KCL 20MEQ/L 1,000 ML IV SCH (20:54)
[2018-05-13] MEDS: HEPARIN SODIUM,PORCINE 5,000 UNIT/ML 1 ML VIAL SQ SCH (23:03)
[2018-05-13] MEDS: ALBUTEROL NEBULIZED 2.5 MG/3 ML INHALATION PRN (23:27)
[2018-05-14] MEDS: LACTATED RINGERS 1,000 ML IV SCH (00:10)
[2018-05-14] MEDS: ALBUTEROL NEBULIZED 2.5 MG/3 ML INHALATION PRN ×2 (03:25→08:06)
[2018-05-14] MEDS: D5-0.45% NACL WITH KCL 20MEQ/L 1,000 ML IV SCH ×2 (03:55→21:11)
[2018-05-14] MEDS: ALVIMOPAN 12 MG CAPSULE PO SCH ×2 (08:51→21:12)
[2018-05-14] MEDS: FAMOTIDINE 20 MG/2 ML VIAL IV SCH ×2 (08:52→21:12)
[2018-05-14] MEDS: HEPARIN SODIUM,PORCINE 5,000 UNIT/ML 1 ML VIAL SQ SCH ×3 (08:52→22:59)
[2018-05-14 09:01] LABS: Basophils % (A) 0 %; Eosinophils % (A) 0 %; HCT 34.1 % (34.0-46.0); HGB 10.6 gm/dL (11.4-16.0); Hypochromasia Slight; Lymphocytes # (A) 0.7 k/uL (1.0-4.8); Lymphocytes % (A) 6 %; MCH 29.5 pg (25.0-35.0); MCHC 31.2 g/dL (31.0-37.0); MCV 94.6 fL (80.0-100.0); Mean Platelet Volume 7.4; Monocytes # (A) 0.7 k/uL (0-1.0); Monocytes % (A) 6 %; Neutrophils # (A) 10.6 k/uL (1.3-7.7); Neutrophils % (A) 87 %; Platelet Count 215 k/uL (150-450); RDW 14.4 % (11.5-15.5); WBC 12.2 k/uL (3.8-10.6)
[2018-05-14 09:05] LABS: Potassium 4.8 mmol/L (3.5-5.1)
--- NOTE | 2018-05-14 11:53 | P.PN ---
Progress Note - Text Progress Note Date: 05/14/18 The patient's resting comfortably in her bed. Her epidural was turned down last night. She has some complaints of incisional pain. She has been hemodialysis stable. Her hemoglobin this morning 7.6 white count is 12. On exam her vital signs are stable. Her abdomen soft. Incision site is clean dry intact. Status post reversal colostomy and asked extensive lysis of adhesions. Patient will remain nothing by mouth. We'll start diet hopefully tomorrow.
--- NOTE | 2018-05-14 11:54 | P.PN ---
Progress Note - Text Progress Note Date: 05/14/18 77-year-old female status post colostomy reversal postop day #1 catheter day # 2. Epidural was turned down from 6 ML's to 3 ML's last night, nurse was concerned that patient was somnolent. Upon evaluation last night patient was alert and oriented [address] and time. No concern for excessive opiate. Patient was not complaining of any pain so I have the rate of the epidural. We'll increase again today to 6 ML's. Incision looks clean dry and intact. Epidural catheter site looks clean dry and intact. We'll continue epidural until Wednesday are when surgeon requests it to be removed.
[2018-05-14] MEDS: MECLIZINE 25 MG TAB PO SCH (22:59)
[2018-05-15] MEDS: D5-0.45% NACL WITH KCL 20MEQ/L 1,000 ML IV SCH ×2 (02:35→19:59)
[2018-05-15] MEDS: ALBUTEROL NEBULIZED 2.5 MG/3 ML INHALATION PRN ×3 (02:49→12:21)
[2018-05-15] MEDS: LACTATED RINGERS 1,000 ML IV SCH (03:42)
[2018-05-15] MEDS: LEVOTHYROXINE 137 MCG TAB PO SCH (05:56)
[2018-05-15] MEDS: ROPIVACAINE 250 MG, fentaNYL (PF) 625 MCG in SODIUM CHLORIDE 0.9% 188 ML EPIDURAL PRN (06:01)
[2018-05-15 07:44] LABS: Basophils % (A) 0 %; Eosinophils # (A) 0.2 k/uL (0-0.7); Eosinophils % (A) 2 %; HCT 34.6 % (34.0-46.0); HGB 10.9 gm/dL (11.4-16.0); Lymphocytes # (A) 0.6 k/uL (1.0-4.8); Lymphocytes % (A) 6 %; MCH 29.2 pg (25.0-35.0); MCHC 31.4 g/dL (31.0-37.0); MCV 92.9 fL (80.0-100.0); Mean Platelet Volume 6.8; Monocytes # (A) 0.6 k/uL (0-1.0); Monocytes % (A) 6 %; Neutrophils # (A) 9.3 k/uL (1.3-7.7); Neutrophils % (A) 85 %; Platelet Count 204 k/uL (150-450); RBC 3.72 m/uL (3.80-5.40); RDW 14.3 % (11.5-15.5)
[2018-05-15 08:29] LABS: Anion Gap 3 mmol/L; Blood Urea Nitrogen 7 mg/dL (7-17); Carbon Dioxide 27 mmol/L (22-30); Chloride 106 mmol/L (98-107); Glucose 133 mg/dL (74-99); Potassium 4.8 mmol/L (3.5-5.1); Sodium 136 mmol/L (137-145)
[2018-05-15] MEDS: MECLIZINE 25 MG TAB PO SCH ×2 (08:30→20:13)
[2018-05-15] MEDS: FAMOTIDINE 20 MG/2 ML VIAL IV SCH ×2 (08:30→20:13)
[2018-05-15] MEDS: HEPARIN SODIUM,PORCINE 5,000 UNIT/ML 1 ML VIAL SQ SCH ×2 (08:30→15:13)
[2018-05-15] MEDS: ALVIMOPAN 12 MG CAPSULE PO SCH ×2 (08:30→20:13)
--- NOTE | 2018-05-15 09:49 | P.CONS ---
History of Present Illness - Reason for Consult Consult date: 05/14/18 Recommendations regarding antihypertensive medications - History of Present Illness 77-year-old well-known patient to me from her prolonged hospitalization the past had ischemic colitis patient underwent colostomy placement in the past and patient is admitted now electively for reversal of colostomy sepsis and underwent surgery patient has sluggish bowel sounds, did not have any well- known denied any fever chills nausea vomiting shortness of breath. Review of Systems REVIEW OF SYSTEMS: CONSTITUTIONAL: No fever, no malaise, no fatigue. HEENT: No recent visual problems or hearing problems. Denied any sore throat. CARDIOVASCULAR: No chest pain, orthopnea, PND, no palpitations, no syncope. PULMONARY: No shortness of breath, no cough, no hemoptysis. GASTROINTESTINAL: No diarrhea, no nausea, no vomiting, no abdominal pain. NEUROLOGICAL: No headaches, no weakness, no numbness. HEMATOLOGICAL: Denies any bleeding or petechiae. GENITOURINARY: Denies any burning micturition, frequency, or urgency. MUSCULOSKELETAL/RHEUMATOLOGICAL: Denies any joint pain, swelling, or any muscle pain. ENDOCRINE: Denies any polyuria or polydipsia. The rest of the 14-point review of systems is negative. 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 History of Any Multi-Drug Resistant Organisms: None Reported Past Surgical History: Appendectomy, Hernia Repair, Hysterectomy, Joint Replacement, Orthopedic Surgery, Pacemaker Additional Past Surgical History / Comment(s): LAPROSCOPIC LYSIS OF ADHESIONS WITH COLECTOMY, TTT, loop recorder, pacemaker, skin cancer removal L cheek/skin graft, inguinal hernia repairs x3, BECCA total knee bilateral knee arthroscopies, partial thyroidectomy, pain clinic procedures (cervical), bilateral lasik eye surgery for vision correction. right shoulder replacement Past Anesthesia/Blood Transfusion Reactions: No Reported Reaction Type of Cardiac Device: Permanent Pacemaker Device Placement Date:: 2015 Past Psychological History: No Psychological Hx Reported Additional Psychological History / Comment(s): Pt resides alone. She is independent. She has a nebulizer. Smoking Status: Current some day smoker Past Alcohol Use History: Occasional Additional Past Alcohol Use History / Comment(s): Pt started smoking in 1953 and quit in 2012 but now states she resumed smoking-an occasional cigarette. Past Drug Use History: None Reported - Past Family History Son(s) Family Medical History: Cancer Additional Family Medical History / Comment(s): TESTICULAR CA IN SONS X2 Daughter(s) Family Medical History: Cancer Additional Family Medical History / Comment(s): OVARIAN CANCER Mother Family Medical History: Cancer Additional Family Medical History / Comment(s): STOMACH CANCER Father Family Medical History: No Reported History Additional Family Medical History / Comment(s): Father was healthy Medications and Allergies Home Medications Medication Instructions Recorded Confirmed Type Ibuprofen [Motrin] 800 mg PO TID PRN 12/01/17 05/13/18 History Acetaminophen Tab [Tylenol] 650 mg PO Q4HR PRN tab 12/17/17 05/13/18 Rx Albuterol Inhaler [Ventolin Hfa 1 - 2 puff INHALATION RT-Q6H PRN 05/09/18 History Inhaler] Budesonide-Formot 160-4.5 Mcg 2 puff INHALATION RT-BID PRN 05/09/18 05/13/18 History [Symbicort 160-4.5 Mcg Inhaler] Meclizine [Antivert] 25 mg PO BID PRN 05/09/18 05/13/18 History NIFEdipine [NIFEdipine ER] 30 mg PO QAM 05/09/18 05/13/18 History Levothyroxine Sodium [Synthroid] 137 mcg PO DAILY 05/12/18 05/13/18 History Albuterol Nebulized [Ventolin 2.5 mg INHALATION RT-Q4H PRN 05/13/18 05/13/18 History Nebulized] Ondansetron [Zofran] 4 mg PO PRN 05/13/18 History Allergies Allergy/AdvReac Type Severity Reaction Status Date / Time acetaminophen [From [place]] Allergy Nausea & Verified 05/13/18 18:31 Vomiting hydrocodone Allergy Nausea & Verified 05/13/18 18:31 Vomiting hydrocodone bitartrate Allergy Nausea & Verified 05/13/18 18:31 [From Vicodin] Vomiting Iodinated Contrast- Oral and Allergy Nausea & Verified 05/13/18 18:31 IV Dye Vomiting hydromorphone [From Dilaudid] AdvReac Vomiting Verified 05/13/18 18:31 grass,mold,dust,cats,trees Allergy Unknown Uncoded 05/13/18 11:07 tape Allergy paper tape Uncoded 05/13/18 11:07 only Physical Exam Vitals: Vital Signs Temp Pulse Pulse Resp BP Pulse Ox 05/15/18 09:12 76 05/15/18 08:51 76 05/15/18 08:16 98.6 F 93 16 157/88 94 L 05/15/18 03:01 78 05/15/18 02:50 73 05/14/18 23:00 98.1 F 73 135/69 93 L 05/14/18 19:30 97.7 F 76 18 118/62 96 Intake and Output 05/14/18 05/15/18 05/15/18 22:59 06:59 14:59 Intake Total 200 1490 15.7 Output Total 1530 Balance 200 -40 15.7 Intake: Intake, IV Titration 1250 15.7 Amount D5-0.45% NaCl with KCl 1250 20Meq/l 1,000 ml @ 125 mls/hr IV .Q8H [facility] Rx#: [id number] Ropivacaine 250 mg 15.7 fentaNYL (PF) 625 mcg In Sodium Chloride 0.9% 188 ml @ Per Protocol EPIDURAL .Q0M PRN Rx#: [id number] Oral 200 240 Output: Drainage 30 Right Lower Abdomen 30 Urine 1500 Uretheral (Miranda) 1500 Other: Voiding Method Indwelling Catheter Indwelling Catheter PHYSICAL EXAMINATION: GENERAL: The patient is alert and oriented x3, not in any acute distress. Well developed, well nourished. He is an epidural pump in place HEENT: Pupils are round and equally reacting to light. EOMI. No scleral icterus. No conjunctival pallor. Normocephalic, atraumatic. No pharyngeal erythema. No thyromegaly. CARDIOVASCULAR: S1 and S2 present. No murmurs, rubs, or gallops. PULMONARY: Chest is clear to auscultation, no wheezing or crackles. ABDOMEN: Soft, sluggish bowel sounds MUSCULOSKELETAL: No joint swelling or deformity. EXTREMITIES: No cyanosis, clubbing, or pedal edema. NEUROLOGICAL: Gross neurological examination did not reveal any focal deficits. SKIN: No rashes. Results CBC & Chem 7: 05/15/18 06:51 05/15/18 06:51 Labs: Abnormal Lab Results - Last 24 Hours (Table) 05/15/18 05/15/18 Range/Units 06:51 06:51 WBC 11.0 H (3.8-10.6) k/uL RBC 3.72 L (3.80-5.40) m/uL Hgb 10.9 L (11.4-16.0) gm/dL Neutrophils # 9.3 H (1.3-7.7) k/uL Lymphocytes # 0.6 L (1.0-4.8) k/uL Sodium 136 L (137-145) mmol/L Glucose 133 H (74-99) mg/dL Assessment and Plan Plan: Postoperative day one for. Reversal of Colostomy: Pain management due to prophylaxis as per primary service -COPD without any acute exacerbation patient will be resumed on her inhalational treatments will not require any systemic steroids. -Hypertension hold off calcium channel kamaljit to prevent perioperative hypotension -Hypothyroidism -Osteoarthritis
--- NOTE | 2018-05-15 14:58 | P.PN ---
Progress Note - Text Progress Note Date: 05/15/18 The patient is complaining of some incisional pain. She denies any significant flatus. On exam her vital signs are stable. Her abdomen soft. Incision is clean dry intact. Status post reversal of colostomy with lysis of adhesions. Patient will remain on full liquid diet.
[2018-05-15] MEDS: METOCLOPRAMIDE 5 MG/ML 2 ML VIAL IVP PRN (15:13)
[2018-05-15] MEDS: IPRATROPIUM-ALBUTEROL 3 ML NEB INHALATION PRN ×2 (16:04→20:15)
--- NOTE | 2018-05-15 17:24 | P.PN ---
Subjective 77-year-old well-known patient to me from her prolonged hospitalization the past had ischemic colitis patient underwent colostomy placement in the past and patient is admitted now electively for reversal of colostomy sepsis and underwent surgery patient has sluggish bowel sounds, did not have any well- known denied any fever chills nausea vomiting shortness of breath. 02/12/2019 Patient is wheezing on exam patient will be started on Symbicort albuterol and ipratropium is complaining of cough with the whitish sputum production Constitutional: Denied any fatigue denied any fever. Cardio vascular: denied any chest pain, palpitations Gastrointestinal denied any nausea vomiting Pulmonary: As mentioned above Neurologic denied any new focal deficits All inpatient medications were reviewed and appropriate changes in these medications as dictated in the interval history and assessment and plan. Objective - Vital Signs Vital signs: Vital Signs Temp 97.7 F 05/15/18 15:00 Pulse 76 05/15/18 16:18 Resp 12 05/15/18 15:00 BP 181/96 05/15/18 15:00 Pulse Ox 96 05/15/18 15:00 Intake & Output 05/14/18 05/15/18 05/15/18 18:59 06:59 18:59 Intake Total 400 1690 55.6 Output Total 1530 Balance 400 160 55.6 Intake: Intake, IV Titration 1250 55.6 Amount D5-0.45% NaCl with KCl 1250 20Meq/l 1,000 ml @ 125 mls/hr IV .Q8H [facility] Rx#: [id number] Ropivacaine 250 mg 55.6 fentaNYL (PF) 625 mcg In Sodium Chloride 0.9% 188 ml @ Per Protocol EPIDURAL .Q0M PRN Rx#: [id number] Oral 400 440 Output: Drainage 30 Right Lower Abdomen 30 Urine 1500 Uretheral (Miranda) 1500 Other: Voiding Method Indwelling Catheter Indwelling Catheter Indwelling Catheter # Voids 700 - Exam PHYSICAL EXAMINATION: GENERAL: The patient is alert and oriented x3, not in any acute distress. Well developed, well nourished. He is an epidural pump in place HEENT: Pupils are round and equally reacting to light. EOMI. No scleral icterus. No conjunctival pallor. Normocephalic, atraumatic. No pharyngeal erythema. No thyromegaly. CARDIOVASCULAR: S1 and S2 present. No murmurs, rubs, or gallops. PULMONARY: Minimal expiratory wheezing on exam ABDOMEN: Soft, sluggish bowel sounds MUSCULOSKELETAL: No joint swelling or deformity. EXTREMITIES: No cyanosis, clubbing, or pedal edema. NEUROLOGICAL: Gross neurological examination did not reveal any focal deficits. SKIN: No rashes. - Labs CBC & Chem 7: 05/15/18 06:51 05/15/18 06:51 Labs: Abnormal Lab Results - Last 24 Hours (Table) 05/15/18 05/15/18 Range/Units 06:51 06:51 WBC 11.0 H (3.8-10.6) k/uL RBC 3.72 L (3.80-5.40) m/uL Hgb 10.9 L (11.4-16.0) gm/dL Neutrophils # 9.3 H (1.3-7.7) k/uL Lymphocytes # 0.6 L (1.0-4.8) k/uL Sodium 136 L (137-145) mmol/L Glucose 133 H (74-99) mg/dL Assessment and Plan Plan: Postoperative day one for. Reversal of Colostomy: Pain management due to prophylaxis as per primary service -COPD with minimal exacerbation patient will be started on inhaled steroids and the inhalational treatments -Hypertension hold off calcium channel kamaljit to prevent perioperative hypotension -Hypothyroidism -Osteoarthritis
[2018-05-15] MEDS: SYMBICORT 160-4.5 MCG INHALER INHALATION SCH (20:15)
[2018-05-15] MEDS: ALPRAZolam 0.25 MG TAB PO PRN (20:39)
--- NOTE | 2018-05-15 21:18 | P.PN ---
Progress Note - Text Progress Note Date: 05/15/18 77-year-old female status post colostomy reversal postop day #2 catheter day # 3. Epidural catheter and using it 6 ML's an hour. Incision looks clean dry and intact. Epidural catheter site looks clean dry and intact. We'll continue epidural until Wednesday are when surgeon requests it to be removed.
[2018-05-16] MEDS: HEPARIN SODIUM,PORCINE 5,000 UNIT/ML 1 ML VIAL SQ SCH ×4 (00:04→23:28)
[2018-05-16] MEDS: D5-0.45% NACL WITH KCL 20MEQ/L 1,000 ML IV SCH ×2 (00:15→15:24)
[2018-05-16] MEDS: LACTATED RINGERS 1,000 ML IV SCH (03:26)
[2018-05-16] MEDS: LEVOTHYROXINE 137 MCG TAB PO SCH (05:54)
[2018-05-16 07:16] LABS: Basophils % (A) 0 %; Eosinophils # (A) 0.4 k/uL (0-0.7); Eosinophils % (A) 4 %; HCT 32.9 % (34.0-46.0); HGB 10.6 gm/dL (11.4-16.0); Lymphocytes # (A) 0.9 k/uL (1.0-4.8); Lymphocytes % (A) 9 %; MCH 29.3 pg (25.0-35.0); MCV 91.6 fL (80.0-100.0); Mean Platelet Volume 7.6; Monocytes # (A) 0.7 k/uL (0-1.0); Monocytes % (A) 7 %; Neutrophils # (A) 7.9 k/uL (1.3-7.7); Neutrophils % (A) 78 %; Platelet Count 193 k/uL (150-450); RDW 14.2 % (11.5-15.5); WBC 10.1 k/uL (3.8-10.6)
[2018-05-16] MEDS: SYMBICORT 160-4.5 MCG INHALER INHALATION SCH ×2 (07:40→20:22)
[2018-05-16] MEDS: IPRATROPIUM-ALBUTEROL 3 ML NEB INHALATION PRN ×2 (07:40→11:33)
[2018-05-16 07:49] LABS: Anion Gap 4 mmol/L; Blood Urea Nitrogen 4 mg/dL (7-17); Calcium 8.9 mg/dL (8.4-10.2); Carbon Dioxide 25 mmol/L (22-30); Chloride 102 mmol/L (98-107); Glucose 124 mg/dL (74-99); Potassium 4.1 mmol/L (3.5-5.1); Sodium 131 mmol/L (137-145)
--- NOTE | 2018-05-16 08:01 | P.PN ---
Progress Note - Text Progress Note Date: 05/16/18 77-year-old female status post colostomy reversal postop day #3 epidural catheter day #4. Rate at 8 ML's an hour, patient comfortable, no somnolence easy to arouse. No compressive motor sensory deficits. Epidural catheter will be DC'd today. Wait two hours for epidural catheter removal of subQ heparin given. Do not give subQ heparin until 4 hours after removal.
[2018-05-16] MEDS: FAMOTIDINE 20 MG/2 ML VIAL IV SCH ×2 (08:22→20:59)
[2018-05-16] MEDS: ALVIMOPAN 12 MG CAPSULE PO SCH ×2 (08:23→20:58)
--- NOTE | 2018-05-16 10:52 | P.PN ---
Subjective Progress Note Date: 05/16/18 Principal diagnosis: Colostomy reversal Patient complaining of back pain today. She states her epidural has not worked well for her. Epidural rate at 9. She is passing flatus. No bowel movement. Tolerating liquid diet currently. She is afebrile. Vitals are stable. White blood cell count normal. Objective - Vital Signs Vital signs: Vital Signs Temp 98.0 F 05/16/18 08:16 Pulse 77 05/16/18 08:16 Resp 16 05/16/18 08:16 BP 175/77 05/16/18 08:16 Pulse Ox 92 L 05/16/18 08:16 Intake & Output 05/15/18 05/16/18 05/16/18 18:59 06:59 18:59 Intake Total 1495.6 1240 Output Total 640 1820 Balance 855.6 -580 Intake: Intake, IV Titration 1255.6 1000 Amount D5-0.45% NaCl with KCl 1200 1000 20Meq/l 1,000 ml @ 100 mls/hr IV .Q10H [facility] Rx#: [id number] Ropivacaine 250 mg 55.6 fentaNYL (PF) 625 mcg In Sodium Chloride 0.9% 188 ml @ Per Protocol EPIDURAL .Q0M PRN Rx#: [id number] Oral 240 240 Output: Drainage 40 20 Right Lower Abdomen 40 20 Urine 600 1800 Uretheral (Miranda) 600 1150 Other: Voiding Method Indwelling Catheter Indwelling Catheter Indwelling Catheter # Voids 700 700 - Exam Abdomen: Soft, nondistended, mild incisional tenderness, incision dressing clean and dry, SANDIP serosanguineous - Labs CBC & Chem 7: 05/16/18 06:42 05/16/18 06:42 Labs: Abnormal Lab Results - Last 24 Hours (Table) 05/16/18 05/16/18 Range/Units 06:42 06:42 RBC 3.60 L (3.80-5.40) m/uL Hgb 10.6 L (11.4-16.0) gm/dL Hct 32.9 L (34.0-46.0) % Neutrophils # 7.9 H (1.3-7.7) k/uL Lymphocytes # 0.9 L (1.0-4.8) k/uL Sodium 131 L (137-145) mmol/L BUN 4 L (7-17) mg/dL Creatinine 0.49 L (0.52-1.04) mg/dL Glucose 124 H (74-99) mg/dL Assessment and Plan (1) Ischemic colitis Narrative/Plan: We'll remove epidural and Miranda catheter. Modified pain medications. Gradually increase diet. Increase activity. Current Visit: Yes Status: Acute Code(s): K55.9 - VASCULAR DISORDER OF INTESTINE, UNSPECIFIED SNOMED Code(s): 12795899
[2018-05-16] MEDS: METOCLOPRAMIDE 5 MG/ML 2 ML VIAL IVP PRN ×2 (11:23→20:59)
[2018-05-16] MEDS: KETOROLAC 30 MG/ML 1 ML VIAL IVP SCH ×3 (11:23→23:28)
[2018-05-16] MEDS: MECLIZINE 25 MG TAB PO SCH ×2 (14:19→20:59)
[2018-05-16] MEDS: traMADol 50 MG TAB PO SCH ×3 (14:19→20:59)
[2018-05-16] MEDS ORDERED: D5-0.9% NACL WITH KCL 40 MEQ/L 1,000 ML IV SCH (15:15)
[2018-05-16] MEDS: D5-0.9% NACL WITH KCL 20 MEQ/L 1,000 ML IV SCH (17:07)
[2018-05-16] MEDS: ONDANSETRON 4 MG/2 ML VIAL IVP PRN ×2 (17:08→23:29)
--- NOTE | 2018-05-16 17:49 | P.PN ---
Subjective Progress Note Date: 05/16/18 Interval history: 77-year-old well-known patient to me from her prolonged hospitalization the past had ischemic colitis patient underwent colostomy placement in the past and patient is admitted now electively for reversal of colostomy sepsis and underwent surgery patient has sluggish bowel sounds, did not have any well- known denied any fever chills nausea vomiting shortness of breath. 02/12/2019 Patient is wheezing on exam patient will be started on Symbicort albuterol and ipratropium is complaining of cough with the whitish sputum production 02/13/2018 patient has history of chronic back pain but complaining of increased back pain-secondary to possibly the OR table positioning, epidural has been discontinued.Passing flatus, no bowel movement today. incentive spirometer up to 1500. Oxygen weaned down to 2 L nasal cannula from 3, maintaining O2 sats in the low 90s. Afebrile, normal WBC. Constitutional: Denied any fatigue denied any fever. Cardio vascular: denied any chest pain, palpitations Gastrointestinal denied any nausea vomiting Pulmonary: As mentioned above Neurologic denied any new focal deficits Active Medications Albuterol/Ipratropium (Duoneb 0.5 Mg-3 Mg/3 Ml Soln) 3 ml INHALATION RT-QID PRN PRN Reason: Shortness Of Breath Or Wheezing Last Admin: 05/16/18 11:33 Dose: 3 ml Alprazolam (Xanax) 0.25 mg PO BID PRN PRN Reason: Anxiety Last Admin: 05/15/18 20:39 Dose: 0.25 mg Alvimopan (Entereg) 12 mg PO BID [facility] Stop: 05/20/18 21:01 Last Admin: 05/16/18 08:23 Dose: 12 mg Budesonide/Formoterol Fumarate (Symbicort 160-4.5 Mcg Inhaler) 2 puff INHALATION RT-BID [facility] Last Admin: 05/16/18 07:40 Dose: 2 puff Diphenhydramine HCl (Benadryl) 25 mg IVP Q6HR PRN PRN Reason: Itching Famotidine (Pepcid) 20 mg IV BID [facility] Last Admin: 05/16/18 08:22 Dose: 20 mg Heparin Sodium (Porcine) (Heparin) 5,000 unit SQ Q8HR [facility] Last Admin: 05/16/18 17:08 Dose: 5,000 unit Hydromorphone HCl (Dilaudid) 1 mg IVP Q3H PRN PRN Reason: Pain Lactated Ringer's (Lactated Ringers) 1,000 mls @ 20 mls/hr IV .Q24H [facility] Last Admin: 05/16/18 03:26 Dose: Not Given Ropivacaine 250 mg/ Fentanyl Citrate 625 mcg/ Sodium Chloride 250 mls @ 0 mls/ hr EPIDURAL .Q0M PRN; Protocol PRN Reason: Pain Control Last Infusion: 05/15/18 15:17 Dose: 7 mls/hr Potassium Chloride/Dextrose/Sod Cl (D5%-Ns-Kcl 20 Meq/L Iv Solution) 1,000 mls @ 100 mls/hr IV .Q10H [facility] Last Admin: 05/16/18 17:07 Dose: 100 mls/hr Ketorolac Tromethamine (Toradol) 15 mg IVP Q6HR [facility] Stop: 05/18/18 06:01 Last Admin: 05/16/18 17:08 Dose: 15 mg Levothyroxine Sodium (Synthroid) 137 mcg PO DAILY@0630 [facility] Last Admin: 05/16/18 05:54 Dose: 137 mcg Meclizine HCl (Antivert) 25 mg PO BID [facility] Last Admin: 05/16/18 14:19 Dose: Not Given Metoclopramide HCl (Reglan) 10 mg IVP Q6HR PRN PRN Reason: Nausea and Vomiting Last Admin: 05/16/18 11:23 Dose: 10 mg Naloxone HCl (Narcan) 0.2 mg IV Q2M PRN PRN Reason: Opioid Reversal Ondansetron HCl (Zofran) 4 mg IVP Q8HR PRN PRN Reason: Nausea And Vomiting Last Admin: 05/16/18 17:08 Dose: 4 mg Tramadol HCl (Ultram) 50 mg PO QID [facility] Last Admin: 05/16/18 17:09 Dose: 50 mg Objective - Vital Signs Vital signs: Vital Signs Temp 98.1 F 05/16/18 15:00 Pulse 78 05/16/18 15:00 Resp 16 05/16/18 15:00 BP 168/76 05/16/18 15:00 Pulse Ox 93 L 05/16/18 15:00 Intake & Output 05/15/18 05/16/18 05/16/18 18:59 06:59 18:59 Intake Total 1495.6 1240 Output Total 640 1820 2420 Balance 855.6 -580 -2420 Intake: Intake, IV Titration 1255.6 1000 Amount D5-0.45% NaCl with KCl 1200 1000 20Meq/l 1,000 ml @ 100 mls/hr IV .Q10H [facility] Rx#: [id number] Ropivacaine 250 mg 55.6 fentaNYL (PF) 625 mcg In Sodium Chloride 0.9% 188 ml @ Per Protocol EPIDURAL .Q0M [facility] Rx#: [id number] Oral 240 240 Output: Drainage 40 20 20 Right Lower Abdomen 40 20 20 Urine 600 1800 2400 Uretheral (Miranda) 600 1150 2000 Other: Voiding Method Indwelling Catheter Indwelling Catheter Indwelling Catheter # Voids 700 700 - Exam GENERAL: The patient is sitting up in bed, alert and oriented x3, not in any acute distress. HEENT: Pupils are round and equally reacting to light. EOMI. No scleral icterus. No conjunctival pallor. Normocephalic, atraumatic. CARDIOVASCULAR: S1 and S2 present. No murmurs, rubs, or gallops. PULMONARY: Minimal expiratory wheezing on exam ABDOMEN: Soft, nondistended, status post surgery, sluggish bowel sounds, midline dressing clean dry and intact, SANDIP with serosanguineous drainage EXTREMITIES: No cyanosis, clubbing, or pedal edema. NEUROLOGICAL: Gross neurological examination did not reveal any focal deficits. SKIN: No rashes. - Labs CBC & Chem 7: 05/16/18 06:42 05/16/18 06:42 Labs: Abnormal Lab Results - Last 24 Hours (Table) 05/16/18 05/16/18 Range/Units 06:42 06:42 RBC 3.60 L (3.80-5.40) m/uL Hgb 10.6 L (11.4-16.0) gm/dL Hct 32.9 L (34.0-46.0) % Neutrophils # 7.9 H (1.3-7.7) k/uL Lymphocytes # 0.9 L (1.0-4.8) k/uL Sodium 131 L (137-145) mmol/L BUN 4 L (7-17) mg/dL Creatinine 0.49 L (0.52-1.04) mg/dL Glucose 124 H (74-99) mg/dL Assessment and Plan Assessment: Reversal of Colostomy -COPD with minimal exacerbation -Hypertension, -Hypothyroidism -Osteoarthritis -Chronic back pain. -Hyponatremia Plan: Continue on current medication regime ,monitoring and symptomatic treatment. Pain managment. Toradol recently ordered as per surgery. Continue on Nebulized bronchodilators, Increase activity as tolerated with PT/OT. Aggressive pulmonary toileting with incentive spirometer reinforced. Sodium dropping, IV fluids changed to D5.9 with potassium. Close monitoring of electrolytes, renal function with repeat labs ordered for a.m. The impression and plan of care has been dictated as directed. : I performed a history and examination of this patient, discussed the same with the dictator. I agree with the dictator's note ,documented as a scribe. Any additional findings or plans will be noted.
[2018-05-17] MEDS: HYDROmorphone 1 MG/ML 1 ML SYRINGE IVP PRN ×5 (00:20→23:40)
[2018-05-17] MEDS: METOCLOPRAMIDE 5 MG/ML 2 ML VIAL IVP PRN (03:35)
[2018-05-17] MEDS: D5-0.9% NACL WITH KCL 20 MEQ/L 1,000 ML IV SCH (03:53)
[2018-05-17] MEDS: KETOROLAC 30 MG/ML 1 ML VIAL IVP SCH ×4 (05:53→22:55)
[2018-05-17] MEDS: LEVOTHYROXINE 137 MCG TAB PO SCH (05:53)
[2018-05-17] MEDS: LACTATED RINGERS 1,000 ML IV SCH (05:56)
[2018-05-17] MEDS: SYMBICORT 160-4.5 MCG INHALER INHALATION SCH ×2 (07:19→19:20)
[2018-05-17] MEDS: IPRATROPIUM-ALBUTEROL 3 ML NEB INHALATION PRN ×4 (07:19→19:20)
[2018-05-17 07:35] LABS: Anion Gap 4 mmol/L; Blood Urea Nitrogen 5 mg/dL (7-17); Calcium 8.7 mg/dL (8.4-10.2); Carbon Dioxide 24 mmol/L (22-30); Chloride 104 mmol/L (98-107); Glucose 122 mg/dL (74-99); Sodium 132 mmol/L (137-145)
[2018-05-17 07:50] LABS: Basophils % (A) 0 %; Eosinophils # (A) 0.5 k/uL (0-0.7); Eosinophils % (A) 5 %; HCT 34.6 % (34.0-46.0); Lymphocytes # (A) 0.3 k/uL (1.0-4.8); Lymphocytes % (A) 3 %; MCH 29.6 pg (25.0-35.0); MCHC 31.8 g/dL (31.0-37.0); MCV 93.2 fL (80.0-100.0); Monocytes # (A) 0.8 k/uL (0-1.0); Monocytes % (A) 8 %; Neutrophils # (A) 8.2 k/uL (1.3-7.7); Neutrophils % (A) 82 %; Platelet Count 187 k/uL (150-450); RBC 3.72 m/uL (3.80-5.40); RDW 14.2 % (11.5-15.5); WBC 10.1 k/uL (3.8-10.6)
[2018-05-17 08:13] LABS: Potassium 5.3 mmol/L (3.5-5.1)
[2018-05-17] MEDS: ALVIMOPAN 12 MG CAPSULE PO SCH ×2 (09:25→20:31)
[2018-05-17] MEDS: FAMOTIDINE 20 MG/2 ML VIAL IV SCH ×2 (09:25→20:31)
[2018-05-17] MEDS: HEPARIN SODIUM,PORCINE 5,000 UNIT/ML 1 ML VIAL SQ SCH ×3 (09:25→22:55)
[2018-05-17] MEDS: MECLIZINE 25 MG TAB PO SCH ×2 (09:25→20:31)
[2018-05-17] MEDS: traMADol 50 MG TAB PO SCH ×3 (10:44→20:31)
--- NOTE | 2018-05-17 15:29 | P.PN ---
Subjective Progress Note Date: 05/17/18 Principal diagnosis: Colostomy reversal Patient doing better today. Pain better controlled with Dilaudid IV. Afebrile. Tolerating diet. White blood cell count normal. She is ambulating. She had a small bowel movement. Objective - Vital Signs Vital signs: Vital Signs Temp 97.8 F 05/17/18 06:58 Pulse 80 05/17/18 11:15 Resp 16 05/17/18 06:58 BP 138/77 05/17/18 06:58 Pulse Ox 93 L 05/17/18 07:19 Intake & Output 05/16/18 05/17/18 05/17/18 18:59 06:59 18:59 Intake Total 1250 Output Total 2420 5 Balance -2420 1245 Intake: Intake, IV Titration 1250 Amount D5-0.9% NaCl with KCl 20 1250 Meq/l 1,000 ml @ 100 mls/ hr IV .Q10H [facility] Rx#: [id number] Output: Drainage 20 5 Right Lower Abdomen 20 5 Urine 2400 Uretheral (Miranda) 1999 Other: Voiding Method Indwelling Catheter Toilet # Voids 1 2 - Exam Abdomen: Soft, nondistended, mild incisional tenderness, incision clean and dry - Labs CBC & Chem 7: 05/17/18 06:42 05/17/18 06:42 Labs: Abnormal Lab Results - Last 24 Hours (Table) 05/17/18 05/17/18 Range/Units 06:42 06:42 RBC 3.72 L (3.80-5.40) m/uL Hgb 11.0 L (11.4-16.0) gm/dL Neutrophils # 8.2 H (1.3-7.7) k/uL Lymphocytes # 0.3 L (1.0-4.8) k/uL Sodium 132 L (137-145) mmol/L Potassium 5.3 H (3.5-5.1) mmol/L BUN 5 L (7-17) mg/dL Glucose 122 H (74-99) mg/dL Assessment and Plan (1) Ischemic colitis Narrative/Plan: Will increase diet. Ambulate. Continue IV pain meds today. Current Visit: Yes Status: Acute Code(s): K55.9 - VASCULAR DISORDER OF INTESTINE, UNSPECIFIED SNOMED Code(s): 26960622
[2018-05-17] MEDS ORDERED: PROCHLORPERAZINE 10 MG TAB PO PRN (15:31)
[2018-05-17] MEDS: DEXTROSE 5%-0.9% NACL 1,000 ML IV SCH (18:18)
[2018-05-17] MEDS: CODEINE 30 MG TAB PO PRN (19:49)
[2018-05-17] MEDS: ONDANSETRON 4 MG/2 ML VIAL IVP PRN (19:50)
--- NOTE | 2018-05-17 20:07 | P.PN ---
Subjective Progress Note Date: 05/17/18 Interval history: 77-year-old well-known patient to me from her prolonged hospitalization the past had ischemic colitis patient underwent colostomy placement in the past and patient is admitted now electively for reversal of colostomy sepsis and underwent surgery patient has sluggish bowel sounds, did not have any well- known denied any fever chills nausea vomiting shortness of breath. 05/15/2018 Patient is wheezing on exam patient will be started on Symbicort albuterol and ipratropium is complaining of cough with the whitish sputum production 05/16/2018 patient has history of chronic back pain but complaining of increased back pain-secondary to possibly the OR table positioning, epidural has been discontinued.Passing flatus, no bowel movement today. incentive spirometer up to 1500. Oxygen weaned down to 2 L nasal cannula from 3, maintaining O2 sats in the low 90s. Afebrile, normal WBC. 05/17/2018 pain control improved. Good diet intake. No nausea or vomiting. 2 small bowel movements earlier this morning. Afebrile. Incentive spirometer up to 500. Sodium improving, it up to 132, potassium 5.3. Final pathologic diagnosis reporting benign intestinal mucosa consistent with inflammation and soft mucosal fibrosis, benign adipose tissue without histopathologic abnormality. Constitutional: fatigue ,denied any fever. Cardio vascular: denied any chest pain, palpitations Gastrointestinal denied any nausea vomiting Pulmonary: As mentioned above Neurologic denied any new focal deficits Active Medications Albuterol/Ipratropium (Duoneb 0.5 Mg-3 Mg/3 Ml Soln) 3 ml INHALATION RT-QID PRN PRN Reason: Shortness Of Breath Or Wheezing Last Admin: 05/17/18 19:20 Dose: 3 ml Alprazolam (Xanax) 0.25 mg PO BID PRN PRN Reason: Anxiety Last Admin: 05/15/18 20:39 Dose: 0.25 mg Alvimopan (Entereg) 12 mg PO BID [facility] Stop: 05/20/18 21:01 Last Admin: 05/17/18 09:25 Dose: 12 mg Budesonide/Formoterol Fumarate (Symbicort 160-4.5 Mcg Inhaler) 2 puff INHALATION RT-BID [facility] Last Admin: 05/17/18 19:20 Dose: 2 puff Codeine Sulfate (Codeine) 15 mg PO Q4HR PRN PRN Reason: Pain Last Admin: 05/17/18 19:49 Dose: 15 mg Diphenhydramine HCl (Benadryl) 25 mg IVP Q6HR PRN PRN Reason: Itching Famotidine (Pepcid) 20 mg IV BID [facility] Last Admin: 05/17/18 09:25 Dose: 20 mg Heparin Sodium (Porcine) (Heparin) 5,000 unit SQ Q8HR [facility] Last Admin: 05/17/18 19:02 Dose: Not Given Hydromorphone HCl (Dilaudid) 1 mg IVP Q3H PRN PRN Reason: Pain Last Admin: 05/17/18 16:07 Dose: 1 mg Lactated Ringer's (Lactated Ringers) 1,000 mls @ 20 mls/hr IV .Q24H [facility] Last Admin: 05/17/18 05:56 Dose: Not Given Ropivacaine 250 mg/ Fentanyl Citrate 625 mcg/ Sodium Chloride 250 mls @ 0 mls/ hr EPIDURAL .Q0M PRN; Protocol PRN Reason: Pain Control Last Infusion: 05/15/18 15:17 Dose: 7 mls/hr Dextrose/Sodium Chloride (Dextrose 5%-Ns Iv Soln) 1,000 mls @ 100 mls/hr IV .Q10H [facility] Last Admin: 05/17/18 18:18 Dose: 100 mls/hr Ketorolac Tromethamine (Toradol) 15 mg IVP Q6HR [facility] Stop: 05/18/18 06:01 Last Admin: 05/17/18 18:17 Dose: 15 mg Levothyroxine Sodium (Synthroid) 137 mcg PO DAILY@0630 [facility] Last Admin: 05/17/18 05:53 Dose: 137 mcg Meclizine HCl (Antivert) 25 mg PO BID [facility] Last Admin: 05/17/18 09:25 Dose: 25 mg Metoclopramide HCl (Reglan) 10 mg IVP Q6HR PRN PRN Reason: Nausea and Vomiting Last Admin: 05/17/18 03:35 Dose: 10 mg Naloxone HCl (Narcan) 0.2 mg IV Q2M PRN PRN Reason: Opioid Reversal Ondansetron HCl (Zofran) 4 mg IVP Q8HR PRN PRN Reason: Nausea And Vomiting Last Admin: 05/17/18 19:50 Dose: 4 mg Prochlorperazine Maleate (Compazine) 10 mg PO Q6HR PRN PRN Reason: Nausea And Vomiting Tramadol HCl (Ultram) 50 mg PO QID [facility] Last Admin: 05/17/18 19:02 Dose: Not Given Objective - Vital Signs Vital signs: Vital Signs Temp 98.1 F 05/17/18 15:00 Pulse 90 05/17/18 19:36 Resp 16 05/17/18 15:00 BP 136/77 05/17/18 15:00 Pulse Ox 95 05/17/18 16:01 Intake & Output 05/17/18 05/17/18 05/18/18 06:59 18:59 06:59 Intake Total 1250 Output Total 5 10 Balance 1245 -10 Intake: Intake, IV Titration 1250 Amount D5-0.9% NaCl with KCl 20 1250 Meq/l 1,000 ml @ 100 mls/ hr IV .Q10H [facility] Rx#: [id number] Output: Drainage 5 10 Right Lower Abdomen 5 10 Other: Voiding Method Toilet # Voids 1 2 - Exam GENERAL: The patient is sitting up in bed, alert and oriented x3, sleepy. HEENT: Pupils are round and equally reacting to light. EOMI. No scleral icterus. No conjunctival pallor. Normocephalic, atraumatic. CARDIOVASCULAR: S1 and S2 present. No murmurs, rubs, or gallops. PULMONARY: Nonlabored, occasional scattered rhonchi, no crackles, no wheezing ABDOMEN: Soft, nondistended, status post surgery, sluggish bowel sounds, midline dressing clean dry and intact, SANDIP with serosanguineous drainage EXTREMITIES: No cyanosis, clubbing, or pedal edema. NEUROLOGICAL: Gross neurological examination did not reveal any focal deficits. SKIN: No rashes. - Labs CBC & Chem 7: 05/17/18 06:42 05/17/18 06:42 Labs: Abnormal Lab Results - Last 24 Hours (Table) 05/17/18 05/17/18 Range/Units 06:42 06:42 RBC 3.72 L (3.80-5.40) m/uL Hgb 11.0 L (11.4-16.0) gm/dL Neutrophils # 8.2 H (1.3-7.7) k/uL Lymphocytes # 0.3 L (1.0-4.8) k/uL Sodium 132 L (137-145) mmol/L Potassium 5.3 H (3.5-5.1) mmol/L BUN 5 L (7-17) mg/dL Glucose 122 H (74-99) mg/dL Assessment and Plan Assessment: Reversal of Colostomy -COPD with minimal exacerbation -Hypertension, -Hypothyroidism -Osteoarthritis -Chronic back pain. -Hyponatremia -Hyperkalemia Plan: Continue on current medication regime ,monitoring and symptomatic treatment. Aggressive pulmonary toileting with incentive spirometer reinforced. Diet advancement and pain managment as per surgery. Maintain Nebulized bronchodilators. Increase activity as tolerated. PT/OT. Close monitoring of electrolytes, renal function with repeat labs ordered for a.m. The impression and plan of care has been dictated as directed. : I performed a history and examination of this patient, discussed the same with the dictator. I agree with the dictator's note ,documented as a scribe. Any additional findings or plans will be noted.
[2018-05-17] MEDS: LORATADINE 10 MG TAB PO SCH (20:35)
[2018-05-18] MEDS: DEXTROSE 5%-0.9% NACL 1,000 ML IV SCH ×2 (00:46→11:56)
[2018-05-18] MEDS: HYDROmorphone 1 MG/ML 1 ML SYRINGE IVP PRN (04:43)
[2018-05-18] MEDS: LEVOTHYROXINE 137 MCG TAB PO SCH (04:55)
[2018-05-18] MEDS: LACTATED RINGERS 1,000 ML IV SCH (05:41)
[2018-05-18] MEDS: KETOROLAC 30 MG/ML 1 ML VIAL IVP SCH (05:48)
[2018-05-18 07:17] LABS: Basophils % (A) 0 %; Eosinophils # (A) 0.6 k/uL (0-0.7); Eosinophils % (A) 10 %; HCT 32.4 % (34.0-46.0); HGB 10.3 gm/dL (11.4-16.0); Lymphocytes # (A) 0.4 k/uL (1.0-4.8); Lymphocytes % (A) 7 %; MCH 29.4 pg (25.0-35.0); MCHC 31.7 g/dL (31.0-37.0); MCV 92.7 fL (80.0-100.0); Mean Platelet Volume 7.5; Monocytes # (A) 0.8 k/uL (0-1.0); Monocytes % (A) 12 %; Neutrophils # (A) 4.4 k/uL (1.3-7.7); Neutrophils % (A) 69 %; Platelet Count 215 k/uL (150-450); RDW 14.1 % (11.5-15.5); WBC 6.4 k/uL (3.8-10.6)
[2018-05-18 07:26] LABS: Anion Gap 4 mmol/L; Blood Urea Nitrogen 5 mg/dL (7-17); Calcium 8.9 mg/dL (8.4-10.2); Carbon Dioxide 27 mmol/L (22-30); Chloride 104 mmol/L (98-107); Glucose 115 mg/dL (74-99); Potassium 4.7 mmol/L (3.5-5.1); Sodium 135 mmol/L (137-145)
--- NOTE | 2018-05-18 07:57 | P.PN ---
Subjective Progress Note Date: 05/18/18 Principal diagnosis: Colostomy reversal Patient doing well today. Pain seems to be well-controlled. Small amount of flatus. No bowel movement. Tolerating diet. No fevers. White blood cell count normal. Objective - Vital Signs Vital signs: Vital Signs Temp 99.0 F 05/18/18 00:51 Pulse 84 05/18/18 00:51 Resp 16 05/18/18 00:51 BP 146/75 05/18/18 00:51 Pulse Ox 92 L 05/18/18 00:51 Intake & Output 05/17/18 05/18/18 05/18/18 18:59 06:59 18:59 Output Total 10 Balance -10 Output: Drainage 10 Right Lower Abdomen 10 Other: Voiding Method Toilet # Voids 2 1 - Exam Abdomen: Soft, nondistended, mild tenderness, dressing clean and dry - Labs CBC & Chem 7: 05/18/18 06:43 05/18/18 06:43 Labs: Abnormal Lab Results - Last 24 Hours (Table) 05/17/18 05/18/18 05/18/18 Range/Units 06:42 06:43 06:43 RBC 3.50 L (3.80-5.40) m/uL Hgb 10.3 L (11.4-16.0) gm/dL Hct 32.4 L (34.0-46.0) % Lymphocytes # 0.4 L (1.0-4.8) k/uL Sodium 132 L 135 L (137-145) mmol/L Potassium 5.3 H (3.5-5.1) mmol/L BUN 5 L 5 L (7-17) mg/dL Glucose 122 H 115 H (74-99) mg/dL Assessment and Plan (1) Ischemic colitis Narrative/Plan: Continue low fiber diet. Ambulate. Await return bowel function. Current Visit: Yes Status: Acute Code(s): K55.9 - VASCULAR DISORDER OF INTESTINE, UNSPECIFIED SNOMED Code(s): 87089454
[2018-05-18] MEDS: HEPARIN SODIUM,PORCINE 5,000 UNIT/ML 1 ML VIAL SQ SCH ×2 (08:15→15:27)
[2018-05-18] MEDS: traMADol 50 MG TAB PO SCH ×4 (08:15→22:02)
[2018-05-18] MEDS: FAMOTIDINE 20 MG/2 ML VIAL IV SCH ×2 (08:15→20:00)
[2018-05-18] MEDS: MECLIZINE 25 MG TAB PO SCH ×2 (08:15→20:00)
[2018-05-18] MEDS: ALVIMOPAN 12 MG CAPSULE PO SCH ×2 (08:15→20:00)
[2018-05-18] MEDS: IPRATROPIUM-ALBUTEROL 3 ML NEB INHALATION PRN ×3 (08:34→16:00)
[2018-05-18] MEDS: SYMBICORT 160-4.5 MCG INHALER INHALATION SCH ×2 (08:34→19:18)
[2018-05-18] MEDS: ONDANSETRON 4 MG/2 ML VIAL IVP PRN (11:48)
[2018-05-18] MEDS: CODEINE 30 MG TAB PO PRN (11:48)
[2018-05-18] MEDS: HYDROmorphone 0.5 MG/0.5 ML SYRINGE IVP PRN ×3 (13:19→19:57)
[2018-05-18] MEDS: ALPRAZolam 0.25 MG TAB PO PRN (16:22)
--- NOTE | 2018-05-18 17:03 | P.PN ---
Subjective Progress Note Date: 05/18/18 Interval history: 77-year-old well-known patient to me from her prolonged hospitalization the past had ischemic colitis patient underwent colostomy placement in the past and patient is admitted now electively for reversal of colostomy sepsis and underwent surgery patient has sluggish bowel sounds, did not have any well- known denied any fever chills nausea vomiting shortness of breath. 05/15/2018 Patient is wheezing on exam patient will be started on Symbicort albuterol and ipratropium is complaining of cough with the whitish sputum production 05/16/2018 patient has history of chronic back pain but complaining of increased back pain-secondary to possibly the OR table positioning, epidural has been discontinued.Passing flatus, no bowel movement today. incentive spirometer up to 1500. Oxygen weaned down to 2 L nasal cannula from 3, maintaining O2 sats in the low 90s. Afebrile, normal WBC. 05/17/2018 pain control improved. Good diet intake. No nausea or vomiting. 2 small bowel movements earlier this morning. Afebrile. Incentive spirometer up to 500. Sodium improving, it up to 132, potassium 5.3. Final pathologic diagnosis reporting benign intestinal mucosa consistent with inflammation and soft mucosal fibrosis, benign adipose tissue without histopathologic abnormality. 05/18/2018 tolerating low fiber diet, diet intake fair. Passing flatus today, no bowel movement. T-max 99.1, WBC WNL. Patient recently medicated for back pain, currently sleeping. Review systems unable to obtain at this time, as mentioned above. Active Medications Generic Name Dose Route Start Last Admin Trade Name Freq PRN Reason Stop Dose Admin Albuterol/Ipratropium 3 ml 05/15/18 14:31 05/18/18 16:00 Duoneb 0.5 Mg-3 Mg/3 Ml Soln INHALATION 3 ml RT-QID PRN Administration Shortness Of Breath Or Wheezing Alprazolam 0.25 mg 05/15/18 19:49 05/18/18 16:22 Xanax PO 0.25 mg BID PRN Administration Anxiety Alvimopan 12 mg 05/14/18 09:00 05/18/18 08:15 Entereg PO 05/20/18 21:01 12 mg BID [facility] Administration Budesonide/Formoterol Fumarate 2 puff 05/15/18 20:00 05/18/18 08:34 Symbicort 160-4.5 Mcg Inhaler INHALATION 2 puff RT-BID [facility] Administration Codeine Sulfate 15 mg 05/17/18 15:30 05/18/18 11:48 Codeine PO 15 mg Q4HR PRN Administration Pain Diphenhydramine HCl 25 mg 05/13/18 12:52 Benadryl IVP Q6HR PRN Itching Famotidine 20 mg 05/13/18 21:00 05/18/18 08:15 Pepcid IV 20 mg BID [facility] Administration Heparin Sodium (Porcine) 5,000 unit 05/14/18 00:00 05/18/18 15:27 Heparin SQ 5,000 unit Q8HR [facility] Administration Hydromorphone HCl 0.5 mg 05/18/18 13:02 05/18/18 16:22 Dilaudid IVP 0.5 mg Q3H PRN Administration Pain Lactated Ringer's 1,000 mls @ 20 mls/hr 05/13/18 05:47 05/18/18 05:41 Lactated Ringers IV Not Given .Q24H [facility] Ropivacaine 250 mg/ Fentanyl 250 mls @ 0 mls/hr 05/13/18 14:41 05/15/18 15:17 Citrate 625 mcg/ Sodium EPIDURAL 7 mls/hr Chloride .Q0M PRN Infusion Pain Control Protocol Per Protocol Dextrose/Sodium Chloride 1,000 mls @ 100 mls/hr 05/17/18 11:30 05/18/18 11:56 Dextrose 5%-Ns Iv Soln IV 100 mls/hr .Q10H [facility] Administration Levothyroxine Sodium 137 mcg 05/15/18 06:30 05/18/18 04:55 Synthroid PO 137 mcg DAILY@0630 [facility] Administration Loratadine 10 mg 05/17/18 21:00 05/17/18 20:35 Claritin PO 10 mg HS [facility] Administration Meclizine HCl 25 mg 05/14/18 22:00 05/18/18 08:15 Antivert PO 25 mg BID [facility] Administration Metoclopramide HCl 10 mg 05/13/18 17:18 05/17/18 03:35 Reglan IVP 10 mg Q6HR PRN Administration Nausea and Vomiting Naloxone HCl 0.2 mg 05/13/18 14:41 Narcan IV Q2M PRN Opioid Reversal Ondansetron HCl 4 mg 05/13/18 12:52 05/18/18 11:48 Zofran IVP 4 mg Q8HR PRN Administration Nausea And Vomiting Prochlorperazine Maleate 10 mg 05/17/18 15:31 Compazine PO Q6HR PRN Nausea And Vomiting Tramadol HCl 50 mg 05/16/18 13:00 05/18/18 11:52 Ultram PO 50 mg QID [facility] Administration Objective - Vital Signs Vital signs: Vital Signs Temp 99.1 F 05/18/18 14:13 Pulse 84 05/18/18 16:14 Resp 16 05/18/18 07:00 BP 152/78 05/18/18 14:13 Pulse Ox 95 05/18/18 14:13 Intake & Output 05/17/18 05/18/18 05/18/18 18:59 06:59 18:59 Output Total 10 Balance -10 Output: Drainage 10 Right Lower Abdomen 10 Other: Voiding Method Toilet Toilet # Voids 2 1 1 - Exam GENERAL: The patient is sitting up in bed, recently medicated for pain, sleeping HEENT: Pupils are round and equal. No conjunctival pallor. Normocephalic, atraumatic. CARDIOVASCULAR: S1 and S2 present. No murmurs, rubs, or gallops. PULMONARY: Nonlabored, occasional scattered rhonchi, no crackles, no wheezing ABDOMEN: Soft, nondistended, status post surgery, positive bowel sounds, midline dressing clean dry and intact, SANDIP with serosanguineous drainage EXTREMITIES: No cyanosis, clubbing, or pedal edema. NEUROLOGICAL: Gross neurological examination did not reveal any focal deficits. SKIN: No rashes. - Labs CBC & Chem 7: 05/18/18 06:43 05/18/18 06:43 Labs: Abnormal Lab Results - Last 24 Hours (Table) 05/18/18 05/18/18 Range/Units 06:43 06:43 RBC 3.50 L (3.80-5.40) m/uL Hgb 10.3 L (11.4-16.0) gm/dL Hct 32.4 L (34.0-46.0) % Lymphocytes # 0.4 L (1.0-4.8) k/uL Sodium 135 L (137-145) mmol/L BUN 5 L (7-17) mg/dL Glucose 115 H (74-99) mg/dL Assessment and Plan Assessment: Reversal of Colostomy, ischemic colitis -COPD with minimal exacerbation -Hypertension, -Hypothyroidism -Osteoarthritis -Chronic back pain. -Hyponatremia -Hyperkalemia, resolved Plan: Continue on current medication regime ,monitoring and symptomatic treatment. PT/OT .up in chair for all meals . Aggressive pulmonary toileting. Maintain Nebulized bronchodilators. Close monitoring of electrolytes, renal function with repeat labs ordered for a.m. The impression and plan of care has been dictated as directed. : I performed a history and examination of this patient, discussed the same with the dictator. I agree with the dictator's note ,documented as a scribe. Any additional findings or plans will be noted.
[2018-05-18] MEDS ORDERED: IPRATROPIUM-ALBUTEROL 3 ML NEB INHALATION PRN (17:11)
[2018-05-18] MEDS: IPRATROPIUM-ALBUTEROL 3 ML NEB INHALATION SCH (19:18)
[2018-05-18] MEDS: LORATADINE 10 MG TAB PO SCH (20:00)
[2018-05-19] MEDS: CODEINE 30 MG TAB PO PRN ×2 (00:56→14:59)
[2018-05-19] MEDS: HEPARIN SODIUM,PORCINE 5,000 UNIT/ML 1 ML VIAL SQ SCH ×3 (00:56→15:05)
[2018-05-19] MEDS: HYDROmorphone 0.5 MG/0.5 ML SYRINGE IVP PRN (01:57)
[2018-05-19] MEDS: LEVOTHYROXINE 137 MCG TAB PO SCH (06:01)
[2018-05-19] MEDS: IPRATROPIUM-ALBUTEROL 3 ML NEB INHALATION SCH ×4 (08:50→20:04)
[2018-05-19] MEDS: SYMBICORT 160-4.5 MCG INHALER INHALATION SCH ×2 (08:50→20:03)
[2018-05-19] MEDS: LACTATED RINGERS 1,000 ML IV SCH (09:05)
[2018-05-19] MEDS: ALVIMOPAN 12 MG CAPSULE PO SCH ×2 (09:12→20:14)
[2018-05-19] MEDS: MECLIZINE 25 MG TAB PO SCH ×2 (09:12→20:14)
[2018-05-19] MEDS: FAMOTIDINE 20 MG/2 ML VIAL IV SCH (09:12)
[2018-05-19] MEDS: traMADol 50 MG TAB PO SCH ×6 (09:12→22:37)
[2018-05-19] MEDS ORDERED: diphenhydrAMINE 25 MG CAP PO PRN (14:45)
--- NOTE | 2018-05-19 15:54 | P.PN ---
Subjective Progress Note Date: 05/19/18 HISTORY OF PRESENT ILLNESS: 77-year-old female who underwent reversal of colostomy. Patient states her pain is better controlled today. She has not required IV Dilaudid. Patient was told this morning she would be discharged home and patient was in agreement. Notified this afternoon that patient called her son and told him she is not going home today and wants to stay until tomorrow. Patient is now refusing discharge today and is adamant she remain in the hospital until tomorrow. PHYSICAL EXAM: VITAL SIGNS: Currently stable. GENERAL: Well-developed in no acute distress. HEENT: No sclera icterus. Extraocular movements grossly intact. Moist buccal mucosa. Head is atraumatic, normocephalic. Hears conversational speech. No nasal drainage. NECK: Supple without lymphadenopathy. CHEST: Non-labored respirations and equal bilateral excursions. CARDIOVASCULAR: Regular rate with regular rhythm. Palpable 2+ radial pulses. ABDOMEN: Soft. Nondistended. Tenderness upon palpation of all 4 quadrant, most severe in right lower quadrant MUSCULOSKELETAL: No clubbing, cyanosis or edema. NEUROLOGIC: No focal or lateralizing signs. Cranial nerves II through XII grossly intact. PSYCH: Appropriate affect. Alert and oriented to person, place and time. SKIN: Well perfused. Good skin turgor. ASSESSMENT: 1. Ischemic colitis, status post colostomy reversal PLAN: Patient is medically stable for discharge home. She is tolerating PO intake and has had a bowel movement. Pain is controlled with oral medications. Patient is refusing discharge home today. She is adamant she stay until tomorrow. IV narcotics discontinued. Patient will be discharged home tomorrow morning. Nurse practitioner note has been reviewed by physician. Signing provider agrees with the documented findings, assessment, and plan of care. Objective - Vital Signs Vital signs: Vital Signs Temp 98.1 F 05/19/18 09:21 Pulse 72 05/19/18 12:35 Resp 16 05/19/18 09:22 BP 146/85 05/19/18 09:21 Pulse Ox 95 05/19/18 09:21 Intake & Output 05/18/18 05/19/18 05/19/18 18:59 06:59 18:59 Intake Total 550 237 Output Total 1 10 Balance 549 227 Intake: Intake, IV Titration 200 Amount Dextrose 5%-0.9% NaCl 1, 200 000 ml @ 100 mls/hr IV . Q10H [facility] Rx#:[id number] Oral 350 237 Output: Drainage 10 Right Lower Abdomen 10 Stool 1 Other: Voiding Method Toilet Toilet Toilet # Voids 1 3 1 - Labs CBC & Chem 7: 05/18/18 06:43 05/18/18 06:43
[2018-05-19] MEDS ORDERED: HYDROmorphone 1 MG/ML 1 ML SYRINGE IVP PRN (17:29)
--- NOTE | 2018-05-19 19:32 | P.PN ---
Subjective Progress Note Date: 05/19/18 Interval history: 77-year-old well-known patient to me from her prolonged hospitalization the past had ischemic colitis patient underwent colostomy placement in the past and patient is admitted now electively for reversal of colostomy sepsis and underwent surgery patient has sluggish bowel sounds, did not have any well- known denied any fever chills nausea vomiting shortness of breath. 05/15/2018 Patient is wheezing on exam patient will be started on Symbicort albuterol and ipratropium is complaining of cough with the whitish sputum production 05/16/2018 patient has history of chronic back pain but complaining of increased back pain-secondary to possibly the OR table positioning, epidural has been discontinued.Passing flatus, no bowel movement today. incentive spirometer up to 1500. Oxygen weaned down to 2 L nasal cannula from 3, maintaining O2 sats in the low 90s. Afebrile, normal WBC. 05/17/2018 pain control improved. Good diet intake. No nausea or vomiting. 2 small bowel movements earlier this morning. Afebrile. Incentive spirometer up to 500. Sodium improving, it up to 132, potassium 5.3. Final pathologic diagnosis reporting benign intestinal mucosa consistent with inflammation and soft mucosal fibrosis, benign adipose tissue without histopathologic abnormality. 05/18/2018 tolerating low fiber diet, diet intake fair. Passing flatus today, no bowel movement. T-max 99.1, WBC WNL. Patient recently medicated for back pain, currently sleeping. 05/19/2018 Positive bowel movement, consumed 100% at lunch, declined dinner. Complains of chronic back pain. IV Dilaudid being discontinued today as per surgery. Ambulating to and from bathroom with 1 person assist. Afebrile. Maintaining O2 sats of 95% on 2 L nasal cannula. Review of systems unable to obtain as patient recently medicated, sleeping. Active Medications Generic Name Dose Route Start Last Admin Trade Name Freq PRN Reason Stop Dose Admin Albuterol/Ipratropium 3 ml 05/18/18 20:00 05/19/18 16:13 Duoneb 0.5 Mg-3 Mg/3 Ml Soln INHALATION 3 ml RT-QID [facility] Administration Albuterol/Ipratropium 3 ml 05/18/18 17:11 Duoneb 0.5 Mg-3 Mg/3 Ml Soln INHALATION RT-Q2H PRN Shortness Of Breath Or Wheezing Alprazolam 0.25 mg 05/15/18 19:49 05/18/18 16:22 Xanax PO 0.25 mg BID PRN Administration Anxiety Alvimopan 12 mg 05/14/18 09:00 05/19/18 09:12 Entereg PO 05/20/18 21:01 12 mg BID [facility] Administration Budesonide/Formoterol Fumarate 2 puff 05/15/18 20:00 05/19/18 08:50 Symbicort 160-4.5 Mcg Inhaler INHALATION 2 puff RT-BID [facility] Administration Codeine Sulfate 15 mg 05/17/18 15:30 05/19/18 14:59 Codeine PO 15 mg Q4HR PRN Administration Pain Diphenhydramine HCl 25 mg 05/19/18 14:45 Benadryl PO Q6HR PRN Itching Famotidine 20 mg 05/19/18 21:00 Pepcid PO BID [facility] Heparin Sodium (Porcine) 5,000 unit 05/14/18 00:00 05/19/18 15:05 Heparin SQ 5,000 unit Q8HR [facility] Administration Levothyroxine Sodium 137 mcg 05/15/18 06:30 05/19/18 06:01 Synthroid PO 137 mcg DAILY@0630 [facility] Administration Loratadine 10 mg 05/17/18 21:00 05/18/18 20:00 Claritin PO Not Given HS [facility] Meclizine HCl 25 mg 05/14/18 22:00 05/19/18 09:12 Antivert PO 25 mg BID [facility] Administration Metoclopramide HCl 10 mg 05/13/18 17:18 05/17/18 03:35 Reglan IVP 10 mg Q6HR PRN Administration Nausea and Vomiting Naloxone HCl 0.2 mg 05/13/18 14:41 Narcan IV Q2M PRN Opioid Reversal Ondansetron HCl 4 mg 05/13/18 12:52 05/18/18 11:48 Zofran IVP 4 mg Q8HR PRN Administration Nausea And Vomiting Prochlorperazine Maleate 10 mg 05/17/18 15:31 Compazine PO Q6HR PRN Nausea And Vomiting Tramadol HCl 50 mg 05/16/18 13:00 05/19/18 17:11 Ultram PO 50 mg QID [facility] Administration Objective - Vital Signs Vital signs: Vital Signs Temp 98.6 F 05/19/18 15:00 Pulse 80 05/19/18 16:23 Resp 16 05/19/18 16:23 BP 160/65 05/19/18 15:00 Pulse Ox 91 L 05/19/18 15:00 Intake & Output 05/19/18 05/19/18 05/20/18 06:59 18:59 06:59 Intake Total 550 237 Output Total 1 10 Balance 549 227 Intake: Intake, IV Titration 200 Amount Dextrose 5%-0.9% NaCl 1, 200 000 ml @ 100 mls/hr IV . Q10H [facility] Rx#:[id number] Oral 350 237 Output: Drainage 10 Right Lower Abdomen 10 Stool 1 Other: Voiding Method Toilet Toilet # Voids 3 1 - Exam GENERAL: The patient is sitting up in bed, appears comfortable, sleeping HEENT: Pupils are round and equal. No conjunctival pallor. Normocephalic, atraumatic. CARDIOVASCULAR: S1 and S2 present. No murmurs, rubs, or gallops. PULMONARY: Nonlabored, occasional scattered rhonchi, no crackles, no wheezing ABDOMEN: Soft, nondistended, status post surgery, positive bowel sounds, midline dressing clean dry and intact EXTREMITIES: No cyanosis, clubbing, or pedal edema. NEUROLOGICAL: Gross neurological examination did not reveal any focal deficits. SKIN: No rashes. - Labs CBC & Chem 7: 05/18/18 06:43 05/18/18 06:43 Assessment and Plan Assessment: Reversal of Colostomy, ischemic colitis -COPD with minimal exacerbation -Hypertension, -Hypothyroidism -Osteoarthritis -Chronic back pain. -Hyponatremia -Hyperkalemia, resolved Plan: Continue on current medication regime ,monitoring and symptomatic treatment. Aggressive pulmonary toileting. Maintain Nebulized bronchodilators. Increase activity as tolerated-ambulate with assistance in hallway q shift. IV Dilaudid discontinued as per surgery, UlTRAM currently on pain med regimen. Discharge planning in progress as per surgery. Follow-up with PCP, Dr. Kim in 1 week. Recommend smoking cessation. Continue IS every hour 10 while awake at home X 2 weeks. Further recommendations to follow. The impression and plan of care has been dictated as directed. : I performed a history and examination of this patient, discussed the same with the dictator. I agree with the dictator's note ,documented as a scribe. Any additional findings or plans will be noted.
[2018-05-19] MEDS: LORATADINE 10 MG TAB PO SCH (20:14)
[2018-05-19] MEDS: FAMOTIDINE 20 MG TAB PO SCH (20:14)
[2018-05-20] MEDS: HEPARIN SODIUM,PORCINE 5,000 UNIT/ML 1 ML VIAL SQ SCH ×3 (00:28→16:42)
[2018-05-20] MEDS: LEVOTHYROXINE 137 MCG TAB PO SCH (05:49)
[2018-05-20] MEDS: traMADol 50 MG TAB PO SCH ×4 (07:46→21:08)
[2018-05-20] MEDS: ALVIMOPAN 12 MG CAPSULE PO SCH (07:47)
[2018-05-20] MEDS: FAMOTIDINE 20 MG TAB PO SCH ×2 (07:47→21:08)
[2018-05-20] MEDS: MECLIZINE 25 MG TAB PO SCH ×2 (07:47→21:08)
--- NOTE | 2018-05-20 08:11 | XR ---
EXAMINATION TYPE: XR chest 2V DATE OF EXAM: 05/20/2018 COMPARISON: Prior chest x-ray December 17, 2017. HISTORY: Hypoxia. TECHNIQUE: Frontal and lateral views of the chest are obtained. FINDINGS: Metallic hardware right medial humeral head level is redemonstrated. There is persistent c ardiomegaly with dual lead pacemaker. There is left basilar opacity consistent with small left pleura l effusion. There is background chronic emphysematous change. There is new right basilar opacity. The re is persistent visualization of right heart border but silhouetting of portions of right hemidiaphr agm. There is appearance of small to moderate-sized right pleural effusion on lateral view but opacit y does not have appearance of simple effusion on frontal projection. No mediastinal shift is evident. Upper lungs remain clear without pneumothorax. IMPRESSION: Stable cardiomegaly. Background chronic emphysematous change with small left pleural eff usion is improved from prior, associated left basilar atelectasis and/or infiltrate is noted. New rig ht basilar opacity is more concerning, suspect small right pleural effusion or fluid collection and r ight lung acute infiltrate and/or atelectasis. Progress radiographs advised. If opacity does not reso lve further investigation with CT exam would be warranted. Mucous plugging is in differential but no obvious volume loss noted.
[2018-05-20] MEDS: SYMBICORT 160-4.5 MCG INHALER INHALATION SCH ×2 (08:21→19:52)
[2018-05-20] MEDS: IPRATROPIUM-ALBUTEROL 3 ML NEB INHALATION SCH ×4 (08:21→19:52)
[2018-05-20 08:50] LABS: Basophils % (A) 0 %; Eosinophils # (A) 0.5 k/uL (0-0.7); Eosinophils % (A) 7 %; HCT 32.8 % (34.0-46.0); HGB 10.4 gm/dL (11.4-16.0); Lymphocytes # (A) 0.7 k/uL (1.0-4.8); Lymphocytes % (A) 10 %; MCHC 31.7 g/dL (31.0-37.0); MCV 91.4 fL (80.0-100.0); Mean Platelet Volume 6.9; Monocytes # (A) 1.1 k/uL (0-1.0); Monocytes % (A) 15 %; Neutrophils # (A) 4.6 k/uL (1.3-7.7); Neutrophils % (A) 65 %; Platelet Count 273 k/uL (150-450); RBC 3.59 m/uL (3.80-5.40); WBC 7.1 k/uL (3.8-10.6)
[2018-05-20 09:01] LABS: Anion Gap 4 mmol/L; Blood Urea Nitrogen 3 mg/dL (7-17); Calcium 8.9 mg/dL (8.4-10.2); Carbon Dioxide 31 mmol/L (22-30); Chloride 99 mmol/L (98-107); Glucose 99 mg/dL (74-99); Potassium 3.9 mmol/L (3.5-5.1); Sodium 134 mmol/L (137-145)
--- NOTE | 2018-05-20 13:42 | P.DS ---
Providers Date of admission: 05/13/18 10:32 Expected date of discharge: 05/20/18 Attending physician: Dakota Hutton Consults: 05/13/18 17:18 Consult Physician Routine Consulting Provider: Suni Mayen Consult Reason/Comments: Medical management Do you want consulting provider notified?: Yes Primary care physician: Keila Young - Discharge Diagnosis(es) (1) Ischemic colitis Patient was admitted last Wednesday for elective colostomy reversal. Patient did well postoperative day. Consults were placed to internal medicine for medical management purposes. Patient's pain control was initially an issue. Her epidural did not work to our satisfaction. Once that was removed and she was started on the water that she did better. She is currently doing well with oral pain medications. Tolerating a diet. Some loose stools. No nausea or vomiting. She would like to go home today. Her SANDIP drain was removed yesterday. We'll plan outpatient follow-up in 1 week. Patient has pain medications already at home. Current Visit: Yes Status: Acute Plan - Discharge Summary Discharge Rx Participant: No New Discharge Prescriptions: New traMADol HCl [Ultram] 50 mg PO QID #12 tab Ranitidine HCl [Zantac] 150 mg PO BID #30 tab Loratadine [Claritin] 10 mg PO HS #20 tab predniSONE 10 mg PO DAILY #20 tab Continue Ibuprofen [Motrin] 800 mg PO TID PRN PRN Reason: Pain Acetaminophen Tab [Tylenol] 650 mg PO Q4HR PRN tab PRN Reason: Fever And/ Or Pain NIFEdipine [NIFEdipine ER] 30 mg PO QAM Meclizine [Antivert] 25 mg PO BID PRN PRN Reason: Vertigo Albuterol Inhaler [Ventolin Hfa Inhaler] 1 - 2 puff INHALATION RT-Q6H PRN PRN Reason: Shortness Of Breath Budesonide-Formot 160-4.5 Mcg [Symbicort 160-4.5 Mcg Inhaler] 2 puff INHALATION RT-BID PRN PRN Reason: Shortness Of Breath Levothyroxine Sodium [Synthroid] 137 mcg PO DAILY Ondansetron [Zofran] 4 mg PO PRN PRN Reason: Nausea Albuterol Nebulized [Ventolin Nebulized] 2.5 mg INHALATION RT-Q4H PRN PRN Reason: Shortness Of Breath Or Wheezing Discharge Medication List Ibuprofen [Motrin] 800 mg PO TID PRN 12/01/17 [History] Acetaminophen Tab [Tylenol] 650 mg PO Q4HR PRN tab 12/17/17 [Rx] Albuterol Inhaler [Ventolin Hfa Inhaler] 1 - 2 puff INHALATION RT-Q6H PRN [History] Budesonide-Formot 160-4.5 Mcg [Symbicort 160-4.5 Mcg Inhaler] 2 puff INHALATION RT-BID PRN 05/09/18 [History] Meclizine [Antivert] 25 mg PO BID PRN 05/09/18 [History] NIFEdipine [NIFEdipine ER] 30 mg PO QAM 05/09/18 [History] Levothyroxine Sodium [Synthroid] 137 mcg PO DAILY 05/12/18 [History] Albuterol Nebulized [Ventolin Nebulized] 2.5 mg INHALATION RT-Q4H PRN 05/13/18 [ History] Ondansetron [Zofran] 4 mg PO PRN 05/13/18 [History] traMADol HCl [Ultram] 50 mg PO QID #12 tab 05/19/18 [Rx] Loratadine [Claritin] 10 mg PO HS #20 tab 05/20/18 [Rx] Ranitidine HCl [Zantac] 150 mg PO BID #30 tab 05/20/18 [Rx] predniSONE 10 mg PO DAILY #20 tab 05/20/18 [Rx] Follow up Appointment(s)/Referral(s): Dakota Hutton MD [Medical Doctor] - 05/26/18 9:00 am Keila Young DO [Primary Care Provider] - 05/24/18 10:20 am Patient Instructions/Handouts: Open Colostomy Reversal (DC) Activity/Diet/Wound Care/Special Instructions: No driving while taking pain medicine No lifting over 10 pounds You may shower. No soaking or tub baths Very light activity until you are reevaluated at your follow up appointment with your surgeon No smoking IS Q1H wa X 10 x 2 weeks Discharge Disposition: HOME WITH HOME HEALTH SERVICES
--- NOTE | 2018-05-20 15:19 | P.PN ---
Subjective 77-year-old well-known patient to me from her prolonged hospitalization the past had ischemic colitis patient underwent colostomy placement in the past and patient is admitted now electively for reversal of colostomy sepsis and underwent surgery patient has sluggish bowel sounds, did not have any well- known denied any fever chills nausea vomiting shortness of breath. 02/12/2019 Patient is wheezing on exam patient will be started on Symbicort albuterol and ipratropium is complaining of cough with the whitish sputum production 05/16/2018 patient has history of chronic back pain but complaining of increased back pain-secondary to possibly the OR table positioning, epidural has been discontinued.Passing flatus, no bowel movement today. incentive spirometer up to 1500. Oxygen weaned down to 2 L nasal cannula from 3, maintaining O2 sats in the low 90s. Afebrile, normal WBC. 05/17/2018 pain control improved. Good diet intake. No nausea or vomiting. 2 small bowel movements earlier this morning. Afebrile. Incentive spirometer up to 500. Sodium improving, it up to 132, potassium 5.3. Final pathologic diagnosis reporting benign intestinal mucosa consistent with inflammation and soft mucosal fibrosis, benign adipose tissue without histopathologic abnormality. 05/18/2018 tolerating low fiber diet, diet intake fair. Passing flatus today, no bowel movement. T-max 99.1, WBC WNL. Patient recently medicated for back pain, currently sleeping. 05/19/2018 Positive bowel movement, consumed 100% at lunch, declined dinner. Complains of chronic back pain. IV Dilaudid being discontinued today as per surgery. Ambulating to and from bathroom with 1 person assist. Afebrile. Maintaining O2 sats of 95% on 2 L nasal cannula. 05/20/2018 Patient had a chest x-ray which is showing bilateral atelectasis although I cannot completely rule out pneumonia patient has significant wheezing and exam I requested to her to stay one more night patient is not willing to stay. Patient was started on weaning dose of prednisone patient was started on Ceftin although there is no evidence of pneumonia, patient mostly has it atelectasis I cannot completely rule out pneumonia. A she is bit short of breath patient is saturating at 81% upon ambulation. Constitutional: Denied any fatigue denied any fever. Cardio vascular: denied any chest pain, palpitations Gastrointestinal denied any nausea vomiting Pulmonary: As mentioned above Neurologic denied any new focal deficits All inpatient medications were reviewed and appropriate changes in these medications as dictated in the interval history and assessment and plan. Objective - Vital Signs Vital signs: Vital Signs Temp 98.2 F 05/20/18 07:00 Pulse 84 05/20/18 12:21 Resp 16 05/20/18 07:40 BP 148/84 05/20/18 07:00 Pulse Ox 87 L 05/20/18 15:00 Intake & Output 05/19/18 05/20/18 05/20/18 18:59 06:59 18:59 Intake Total 237 140 Output Total 10 Balance 227 140 Weight 78.018 kg Intake: Intake, IV Titration 140 Amount Lactated Ringers 1,000 ml 140 @ 20 mls/hr IV .Q24H [facility] Rx#:[id number] Oral 237 Output: Drainage 10 Right Lower Abdomen 10 Other: Voiding Method Toilet Toilet Toilet # Voids 1 1 3 # Bowel Movements 1 - Exam PHYSICAL EXAMINATION: GENERAL: The patient is alert and oriented x3, not in any acute distress. Well developed, well nourished. HEENT: Pupils are round and equally reacting to light. EOMI. No scleral icterus. No conjunctival pallor. Normocephalic, atraumatic. No pharyngeal erythema. No thyromegaly. CARDIOVASCULAR: S1 and S2 present. No murmurs, rubs, or gallops. PULMONARY: Significant expiratory wheezing on exam ABDOMEN: Soft, sluggish bowel sounds MUSCULOSKELETAL: No joint swelling or deformity. EXTREMITIES: No cyanosis, clubbing, or pedal edema. NEUROLOGICAL: Gross neurological examination did not reveal any focal deficits. SKIN: No rashes. - Labs CBC & Chem 7: 05/20/18 07:30 05/20/18 07:30 Labs: Abnormal Lab Results - Last 24 Hours (Table) 05/20/18 05/20/18 Range/Units 07:30 07:30 RBC 3.59 L (3.80-5.40) m/uL Hgb 10.4 L (11.4-16.0) gm/dL Hct 32.8 L (34.0-46.0) % Lymphocytes # 0.7 L (1.0-4.8) k/uL Monocytes # 1.1 H (0-1.0) k/uL Sodium 134 L (137-145) mmol/L Carbon Dioxide 31 H (22-30) mmol/L BUN 3 L (7-17) mg/dL Assessment and Plan Plan: Postoperative day one for. Reversal of Colostomy: Pain management due to prophylaxis as per primary service -COPD acute exacerbation possibility of bronchitis although pneumonia cannot be ruled out as mentioned above -Hypertension hold off calcium channel kamaljit to prevent perioperative hypotension -Hypothyroidism -Osteoarthritis
[2018-05-20] MEDS ORDERED: methylPREDNISolone SOD SUCCI 125 MG/2 ML VIAL IV STA (15:30)
[2018-05-20] MEDS: CEFUROXIME 750 MG in SODIUM CHLORIDE 0.9% 50 ML IVPB SCH (16:39)
[2018-05-20] MEDS: CODEINE 30 MG TAB PO PRN (18:06)
[2018-05-20] MEDS ORDERED: SYMBICORT 160-4.5 MCG INHALER INHALATION ONE (19:36)
[2018-05-20] MEDS: LORATADINE 10 MG TAB PO SCH (21:08)
[2018-05-21] MEDS: HEPARIN SODIUM,PORCINE 5,000 UNIT/ML 1 ML VIAL SQ SCH ×2 (00:04→09:55)
[2018-05-21] MEDS: CEFUROXIME 750 MG in SODIUM CHLORIDE 0.9% 50 ML IVPB SCH ×2 (00:59→09:55)
[2018-05-21] MEDS: CODEINE 30 MG TAB PO PRN (00:59)
[2018-05-21] MEDS: LEVOTHYROXINE 137 MCG TAB PO SCH (05:28)
[2018-05-21 06:55] VITALS: BP 158/92; RESP 18; TEMP 97.7
[2018-05-21] MEDS: IPRATROPIUM-ALBUTEROL 3 ML NEB INHALATION SCH ×2 (08:04→12:10)
[2018-05-21] MEDS: SYMBICORT 160-4.5 MCG INHALER INHALATION SCH (08:04)
[2018-05-21] MEDS: MECLIZINE 25 MG TAB PO SCH (09:51)
[2018-05-21] MEDS: FAMOTIDINE 20 MG TAB PO SCH (09:55)
[2018-05-21] MEDS: traMADol 50 MG TAB PO SCH ×2 (10:33→13:41)
[2018-05-21 12:21] VITALS: PULSE 95
--- NOTE | 2018-05-21 12:29 | P.PN ---
Subjective Progress Note Date: 05/21/18 CHIEF COMPLAINT: Ischemic colitis HISTORY OF PRESENT ILLNESS: The patient is a 77year-old female status post colostomy reversal, 05/13/18, POD 8. No reports of abdominal pain. No nausea or vomiting. Pain is controlled. Family at bedside. Patient had questions about follow-up including driving restrictions. PHYSICAL EXAM: VITAL SIGNS: Reviewed GENERAL: Well-developed in no acute distress. HEENT: No sclera icterus. Extraocular movements grossly intact. Moist buccal mucosa. Head is atraumatic, normocephalic. Hears conversational speech. No nasal drainage. NECK: Supple without lymphadenopathy. CHEST: Non-labored respirations and equal bilateral excursions. CARDIOVASCULAR: Palpable 2+ radial pulses. ABDOMEN: Soft. Nondistended. MUSCULOSKELETAL: No clubbing, cyanosis or edema. NEUROLOGIC: No focal or lateralizing signs. Cranial nerves II through XII grossly intact. PSYCH: Appropriate affect. Alert and oriented to person, place and time. SKIN: Well perfused. Good skin turgor. LABS: Reviewed ASSESSMENT: 1. Ischemic colitis 2. Status post colostomy reversal PLAN: 1. Follow-up with Dr. Hutton this week discussed as per discharge instructions. 2. Patient is stable. Objective - Vital Signs Vital signs: Vital Signs Temp 97.7 F 05/21/18 06:20 Pulse 95 05/21/18 12:20 Resp 18 05/21/18 06:20 BP 158/92 05/21/18 06:20 Pulse Ox 93 L 05/21/18 08:04 Intake & Output 05/20/18 05/21/18 05/21/18 18:59 06:59 18:59 Intake Total 50 Balance 50 Weight 78.018 kg Intake: Intake, IV Titration 50 Amount Cefuroxime 750 mg In 50 Sodium Chloride 0.9% 50 ml @ 100 mls/hr IVPB Q8HR [facility] Rx#:[id number] Other: Voiding Method Toilet Toilet Toilet # Voids 3 2 - Labs CBC & Chem 7: 05/20/18 07:30 05/20/18 07:30
--- NOTE | 2018-05-21 14:43 | P.PN ---
Subjective 77-year-old well-known patient to me from her prolonged hospitalization the past had ischemic colitis patient underwent colostomy placement in the past and patient is admitted now electively for reversal of colostomy sepsis and underwent surgery patient has sluggish bowel sounds, did not have any well- known denied any fever chills nausea vomiting shortness of breath. 02/12/2019 Patient is wheezing on exam patient will be started on Symbicort albuterol and ipratropium is complaining of cough with the whitish sputum production 05/16/2018 patient has history of chronic back pain but complaining of increased back pain-secondary to possibly the OR table positioning, epidural has been discontinued.Passing flatus, no bowel movement today. incentive spirometer up to 1500. Oxygen weaned down to 2 L nasal cannula from 3, maintaining O2 sats in the low 90s. Afebrile, normal WBC. 05/17/2018 pain control improved. Good diet intake. No nausea or vomiting. 2 small bowel movements earlier this morning. Afebrile. Incentive spirometer up to 500. Sodium improving, it up to 132, potassium 5.3. Final pathologic diagnosis reporting benign intestinal mucosa consistent with inflammation and soft mucosal fibrosis, benign adipose tissue without histopathologic abnormality. 05/18/2018 tolerating low fiber diet, diet intake fair. Passing flatus today, no bowel movement. T-max 99.1, WBC WNL. Patient recently medicated for back pain, currently sleeping. 05/19/2018 Positive bowel movement, consumed 100% at lunch, declined dinner. Complains of chronic back pain. IV Dilaudid being discontinued today as per surgery. Ambulating to and from bathroom with 1 person assist. Afebrile. Maintaining O2 sats of 95% on 2 L nasal cannula. 05/20/2018 Patient had a chest x-ray which is showing bilateral atelectasis although I cannot completely rule out pneumonia patient has significant wheezing and exam I requested to her to stay one more night patient is not willing to stay. Patient was started on weaning dose of prednisone patient was started on Ceftin although there is no evidence of pneumonia, patient mostly has it atelectasis I cannot completely rule out pneumonia. A she is bit short of breath patient is saturating at 81% upon ambulation. 05/21/2018 Patient's wheezing completely resolved but patient is still requiring oxygen patient will require home O2 patient will be discharged today with home O2 patient will be continued on Ceftin for 5 more days after discharge possibility of pneumonia cannot be ruled out although there is no clear-cut evidence that patient has pneumonia Constitutional: Denied any fatigue denied any fever. Cardio vascular: denied any chest pain, palpitations Gastrointestinal denied any nausea vomiting Pulmonary: As mentioned above Neurologic denied any new focal deficits All inpatient medications were reviewed and appropriate changes in these medications as dictated in the interval history and assessment and plan. Objective - Vital Signs Vital signs: Vital Signs Temp 97.7 F 05/21/18 06:20 Pulse 95 05/21/18 12:20 Resp 18 05/21/18 06:20 BP 158/92 05/21/18 06:20 Pulse Ox 93 L 05/21/18 08:04 Intake & Output 05/20/18 05/21/18 05/21/18 18:59 06:59 18:59 Intake Total 50 Balance 50 Weight 78.018 kg Intake: Intake, IV Titration 50 Amount Cefuroxime 750 mg In 50 Sodium Chloride 0.9% 50 ml @ 100 mls/hr IVPB Q8HR [facility] Rx#:[id number] Other: Voiding Method Toilet Toilet Toilet # Voids 3 2 - Exam PHYSICAL EXAMINATION: GENERAL: The patient is alert and oriented x3, not in any acute distress. Well developed, well nourished. HEENT: Pupils are round and equally reacting to light. EOMI. No scleral icterus. No conjunctival pallor. Normocephalic, atraumatic. No pharyngeal erythema. No thyromegaly. CARDIOVASCULAR: S1 and S2 present. No murmurs, rubs, or gallops. PULMONARY: Significant expiratory wheezing on exam ABDOMEN: Soft, sluggish bowel sounds MUSCULOSKELETAL: No joint swelling or deformity. EXTREMITIES: No cyanosis, clubbing, or pedal edema. NEUROLOGICAL: Gross neurological examination did not reveal any focal deficits. SKIN: No rashes. - Labs CBC & Chem 7: 05/20/18 07:30 05/20/18 07:30 Assessment and Plan Plan: Postoperative day one for. Reversal of Colostomy: Pain management dvt prophylaxis as per primary service -COPD acute exacerbation possibility of bronchitis although pneumonia cannot be ruled out as mentioned above -Hypertension patient is resumed on her antidepressant medication -Hypothyroidism -Osteoarthritis
== END 2018-05-21 14:05 | disposition home health service (06) | DRG 329 ==
LOC: 2ORMAIN 10:32 → 4SSUR 17:08
PROVIDERS: ADMIT Surgery; ATTEND Surgery
PROC: 0DBU0ZZ Excision of Omentum, Open Approach (ICD-10-PCS; principal; 2018-05-13 09:45)
PROC: 0DQL0ZZ Repair Transverse Colon, Open Approach (ICD-10-PCS; principal; 2018-05-13 09:45)
PROC: 0DQM0ZZ Repair Descending Colon, Open Approach (ICD-10-PCS; principal; 2018-05-13 09:45)
DX: Z43.3 Encounter for attention to colostomy (principal); J18.9 Pneumonia, unspecified organism; E87.1 Hypo-osmolality and hyponatremia; J98.11 Atelectasis; J44.0 Chronic obstructive pulmonary disease with (acute) lower respiratory infection; J44.1 Chronic obstructive pulmonary disease with (acute) exacerbation; E03.9 Hypothyroidism, unspecified; E87.5 Hyperkalemia; F17.200 Nicotine dependence, unspecified, uncomplicated; F41.9 Anxiety disorder, unspecified; G89.29 Other chronic pain; I10 Essential (primary) hypertension; K43.2 Incisional hernia without obstruction or gangrene; K57.90 Diverticulosis of intestine, part unspecified, without perforation or abscess without bleeding; M19.90 Unspecified osteoarthritis, unspecified site; Z79.51 Long term (current) use of inhaled steroids; Z79.890 Hormone replacement therapy; Z80.0 Family history of malignant neoplasm of digestive organs; Z80.41 Family history of malignant neoplasm of ovary; Z85.828 Personal history of other malignant neoplasm of skin; Z87.11 Personal history of peptic ulcer disease; Z90.710 Acquired absence of both cervix and uterus; Z96.611 Presence of right artificial shoulder joint; Z95.0 Presence of cardiac pacemaker; Z96.653 Presence of artificial knee joint, bilateral; Z79.1 Long term (current) use of non-steroidal anti-inflammatories (NSAID); Z79.899 Other long term (current) drug therapy; Z91.041 Radiographic dye allergy status; Z88.5 Allergy status to narcotic agent; Z88.8 Allergy status to other drugs, medicaments and biological substances; Z91.048 Other nonmedicinal substance allergy status
CPT/HCPCS: 71046; 80048; 84132; 85025; 86850; 86900; 86901; 88304; 94640; 94760

== ENCOUNTER 2018-05-29 12:21 | Emergency (ER) | payer MEDICARE, BC ==
[2018-05-29] MEDS ORDERED: SODIUM CHLORIDE 0.9% 1,000 ML IV STA (13:24)
--- NOTE | 2018-05-29 13:32 | ED ---
General Adult HPI - General Chief complaint: GI Bleed Stated complaint: BLOODY STOOL Time Seen by Provider: 05/29/18 13:03 Source: patient, RN notes reviewed Mode of arrival: ambulatory Limitations: no limitations - History of Present Illness Initial comments: Patient is a pleasant 77-year-old female presenting to the emergency department with concerns for rectal bleeding. Patient did have recent colitis with bowel resection. Patient does not have chronic colitis. Patient did have colonoscopy done prior to bowel resection. Patient had a little bit of red stool yesterday however noticed some more today. Patient does have some abdominal discomfort which is mostly mild and slowly improving since surgery. No nausea vomiting. No fevers. - Related Data Home Medications Medication Instructions Recorded Confirmed Albuterol Inhaler [Ventolin Hfa 1 - 2 puff INHALATION RT-Q6H PRN 05/09/18 Inhaler] NIFEdipine [NIFEdipine ER] 30 mg PO QAM 05/09/18 05/29/18 Levothyroxine Sodium [Synthroid] 137 mcg PO DAILY 05/12/18 05/29/18 Albuterol Nebulized [Ventolin 2.5 mg INHALATION RT-Q4H PRN 05/13/18 05/29/18 Nebulized] Previous Rx's Medication Instructions Recorded Cefuroxime Axetil [Ceftin] 500 mg PO BID #14 tab 05/20/18 predniSONE 10 mg PO DAILY #30 tab 05/20/18 Omeprazole [PriLOSEC] 40 mg PO PERCY-BRKFST #14 capsule. 05/29/18 Allergies Allergy/AdvReac Type Severity Reaction Status Date / Time acetaminophen [From [place]] Allergy Nausea & Verified 05/29/18 13:15 Vomiting hydrocodone Allergy Nausea & Verified 05/29/18 13:15 Vomiting hydrocodone bitartrate Allergy Nausea & Verified 05/29/18 13:15 [From Vicodin] Vomiting Iodinated Contrast- Oral and Allergy Nausea & Verified 05/29/18 13:15 IV Dye Vomiting hydromorphone [From Dilaudid] AdvReac Vomiting Verified 05/29/18 13:15 grass,mold,dust,cats,trees Allergy Unknown Uncoded 05/13/18 11:07 tape Allergy paper tape Uncoded 05/13/18 11:07 only Review of Systems ROS Statement: Those systems with pertinent positive or pertinent negative responses have been documented in the HPI. ROS Other: All systems not noted in ROS Statement are negative. Constitutional: Denies: fever Eyes: Denies: eye pain ENT: Denies: ear pain Respiratory: Denies: cough Cardiovascular: Denies: chest pain Endocrine: Denies: fatigue Gastrointestinal: Reports: as per HPI, hematochezia Genitourinary: Denies: dysuria Musculoskeletal: Denies: back pain Skin: Denies: rash Neurological: Denies: weakness Past Medical History Past Medical History: Asthma, Cancer, COPD, GI Bleed, Hypertension, Musculoskeletal Disorder, Osteoarthritis (OA), Thyroid Disorder Additional Past Medical History / Comment(s): COLOSTOMY, 3rd degree heart block with pacemaker, arthritis L foot and bilateral knees, colitis/stomach ulcer in the 1970s/lower GI bleed,past migraines as a teen, vertigo, skin cancer with removal. History of Any Multi-Drug Resistant Organisms: None Reported Past Surgical History: Appendectomy, Hernia Repair, Hysterectomy, Joint Replacement, Orthopedic Surgery, Pacemaker Additional Past Surgical History / Comment(s): LAPROSCOPIC LYSIS OF ADHESIONS WITH COLECTOMY, TTT, loop recorder, pacemaker, skin cancer removal L cheek/skin graft, inguinal hernia repairs x3, BECCA total knee bilateral knee arthroscopies, partial thyroidectomy, pain clinic procedures (cervical), bilateral lasik eye surgery for vision correction. right shoulder replacement, bowel resection on by Dr. Hutton Past Anesthesia/Blood Transfusion Reactions: No Reported Reaction Type of Cardiac Device: Permanent Pacemaker Device Placement Date:: 2015 Past Psychological History: No Psychological Hx Reported Smoking Status: Current some day smoker Past Alcohol Use History: Occasional Past Drug Use History: None Reported - Past Family History Son(s) Family Medical History: Cancer Additional Family Medical History / Comment(s): TESTICULAR CA IN SONS X2 Daughter(s) Family Medical History: Cancer Additional Family Medical History / Comment(s): OVARIAN CANCER Mother Family Medical History: Cancer Additional Family Medical History / Comment(s): STOMACH CANCER Father Family Medical History: No Reported History Additional Family Medical History / Comment(s): Father was healthy General Exam Limitations: no limitations General appearance: alert, in no apparent distress Head exam: Present: atraumatic Eye exam: Present: normal appearance Neck exam: Present: normal inspection Respiratory exam: Present: normal lung sounds bilaterally Cardiovascular Exam: Present: regular rate, normal rhythm GI/Abdominal exam: Present: soft, tenderness (Mild diffuse tenderness), normal bowel sounds. Absent: distended, guarding, rebound, rigid, pulsatile mass Rectal exam: Present: normal inspection Extremities exam: Present: normal inspection Neurological exam: Present: alert Psychiatric exam: Present: normal affect, normal mood Skin exam: Present: normal color Course Vital Signs 05/29/18 05/29/18 05/29/18 12:52 13:54 16:10 Temperature 98.6 F 98.4 F Pulse Rate 79 70 Respiratory 18 16 16 Rate Blood Pressure 172/88 170/84 O2 Sat by Pulse 98 96 Oximetry Medical Decision Making - Medical Decision Making Patient's surgeon, Dr. Houser is not on-call today. Patient is requesting discharge stating she is not to be admitted and does not want to stay. Patient was seen by Dr. Mayen who is comfortable with discharge of patient. Patient is updated on results and need for close follow-up. She states she has an appointment this week with Dr. Houser. Patient is also advised to follow-up with her primary care physician this week. Patient is updated on results. - Lab Data Result diagrams: 05/29/18 13:52 05/29/18 13:52 Lab Results 05/29/18 05/29/18 05/29/18 Range/Units 13:52 13:52 13:52 WBC 13.4 H (3.8-10.6) k/uL RBC 4.01 (3.80-5.40) m/uL Hgb 11.3 L (11.4-16.0) gm/dL Hct 36.1 (34.0-46.0) % MCV 89.9 (80.0-100.0) fL MCH 28.3 (25.0-35.0) pg MCHC 31.4 (31.0-37.0) g/dL RDW 15.1 (11.5-15.5) % Plt Count 402 (150-450) k/uL Neutrophils % 89 % Lymphocytes % 5 % Monocytes % 3 % Eosinophils % 1 % Basophils % 1 % Neutrophils # 12.0 H (1.3-7.7) k/uL Lymphocytes # 0.7 L (1.0-4.8) k/uL Monocytes # 0.4 (0-1.0) k/uL Eosinophils # 0.2 (0-0.7) k/uL Basophils # 0.1 (0-0.2) k/uL PT 10.4 (9.0-12.0) sec INR 1.0 (<1.2) APTT 24.0 (22.0-30.0) sec Sodium 137 (137-145) mmol/L Potassium 4.3 (3.5-5.1) mmol/L Chloride 103 (98-107) mmol/L Carbon Dioxide 26 (22-30) mmol/L Anion Gap 8 mmol/L BUN 18 H (7-17) mg/dL Creatinine 0.64 (0.52-1.04) mg/dL Est GFR (CKD-EPI)AfAm >90 (>60 ml/min/1.73 sqM) Est GFR (CKD-EPI)NonAf 86 (>60 ml/min/1.73 sqM) Glucose 116 H (74-99) mg/dL Calcium 9.3 (8.4-10.2) mg/dL Total Bilirubin 0.5 (0.2-1.3) mg/dL AST 26 (14-36) U/L ALT 35 (9-52) U/L Alkaline Phosphatase 111 (38-126) U/L Total Protein 6.4 (6.3-8.2) g/dL Albumin 3.6 (3.5-5.0) g/dL Stool Occult Blood (Negative) 05/29/18 Range/Units 13:52 WBC (3.8-10.6) k/uL RBC (3.80-5.40) m/uL Hgb (11.4-16.0) gm/dL Hct (34.0-46.0) % MCV (80.0-100.0) fL MCH (25.0-35.0) pg MCHC (31.0-37.0) g/dL RDW (11.5-15.5) % Plt Count (150-450) k/uL Neutrophils % % Lymphocytes % % Monocytes % % Eosinophils % % Basophils % % Neutrophils # (1.3-7.7) k/uL Lymphocytes # (1.0-4.8) k/uL Monocytes # (0-1.0) k/uL Eosinophils # (0-0.7) k/uL Basophils # (0-0.2) k/uL PT (9.0-12.0) sec INR (<1.2) APTT (22.0-30.0) sec Sodium (137-145) mmol/L Potassium (3.5-5.1) mmol/L Chloride (98-107) mmol/L Carbon Dioxide (22-30) mmol/L Anion Gap mmol/L BUN (7-17) mg/dL Creatinine (0.52-1.04) mg/dL Est GFR (CKD-EPI)AfAm (>60 ml/min/1.73 sqM) Est GFR (CKD-EPI)NonAf (>60 ml/min/1.73 sqM) Glucose (74-99) mg/dL Calcium (8.4-10.2) mg/dL Total Bilirubin (0.2-1.3) mg/dL AST (14-36) U/L ALT (9-52) U/L Alkaline Phosphatase (38-126) U/L Total Protein (6.3-8.2) g/dL Albumin (3.5-5.0) g/dL Stool Occult Blood Positive H (Negative) - Radiology Data Radiology results: report reviewed (Computed tomography scan shows some ileus, otherwise no acute abnormality) Disposition Clinical Impression: Occult blood positive stool Disposition: HOME SELF-CARE Condition: Stable Instructions (If sedation given, give patient instructions): Gastrointestinal Bleeding (ED) Additional Instructions: Please follow-up with primary care physician and Dr. Houser this week. Return for increased bleeding, pain, fevers, weakness or fatigue, worsening symptoms or other concerns. Prescriptions: Omeprazole [PriLOSEC] 40 mg PO -BRKFST #14 capsule.dr Is patient prescribed a controlled substance at d/c from ED?: No Referrals: Keila Young DO [Primary Care Provider] - 1-2 days Time of Disposition: 16:38
[2018-05-29 14:11] LABS: Basophils # (A) 0.1 k/uL (0-0.2); Basophils % (A) 1 %; Eosinophils # (A) 0.2 k/uL (0-0.7); Eosinophils % (A) 1 %; HCT 36.1 % (34.0-46.0); HGB 11.3 gm/dL (11.4-16.0); Lymphocytes # (A) 0.7 k/uL (1.0-4.8); Lymphocytes % (A) 5 %; MCH 28.3 pg (25.0-35.0); MCHC 31.4 g/dL (31.0-37.0); MCV 89.9 fL (80.0-100.0); Mean Platelet Volume 6.6; Monocytes # (A) 0.4 k/uL (0-1.0); Monocytes % (A) 3 %; Neutrophils % (A) 89 %; Platelet Count 402 k/uL (150-450); RBC 4.01 m/uL (3.80-5.40); RDW 15.1 % (11.5-15.5); WBC 13.4 k/uL (3.8-10.6)
[2018-05-29 14:17] LABS: Prothrombin Time 10.4 sec (9.0-12.0)
[2018-05-29 14:19] LABS: ALT 35 U/L (9-52); AST 26 U/L (14-36); Albumin 3.6 g/dL (3.5-5.0); Alkaline Phosphatase 111 U/L (38-126); Anion Gap 8 mmol/L; Blood Urea Nitrogen 18 mg/dL (7-17); Calcium 9.3 mg/dL (8.4-10.2); Carbon Dioxide 26 mmol/L (22-30); Chloride 103 mmol/L (98-107); Glucose 116 mg/dL (74-99); Potassium 4.3 mmol/L (3.5-5.1); Sodium 137 mmol/L (137-145); Total Bilirubin 0.5 mg/dL (0.2-1.3); Total Protein 6.4 g/dL (6.3-8.2)
[2018-05-29] MEDS ORDERED: diphenhydrAMINE 50 MG/ML 1 ML VIAL IVP STA (14:37)
--- NOTE | 2018-05-29 15:32 | P.CONS ---
History of Present Illness - Reason for Consult Possibility of admission - History of Present Illness A pleasant 77-year-old female known to me from her previous hospital patient for colitis and the patient had a colostomy subsequently N to end anastomosis patient was having some abdominal pain and constipation patient was asked to use [id number] stool softeners. Patient as today is soft light red stool no blood per rectum denied any dark stool patient had only one more burned yesterday and one bowel movement today I was asked to evaluate the patient for admission. Patient also is not willing to stay in the hospital she wanted to go home no matter what. Her hemoglobin is 11.3 better than her discharge hemoglobin. Clinically doesn't appear like patient has an acute GI bleed. As a dual but that doesn't mean patient has an acute GI bleed this is a very nonspecific test. Patient was also complaining of some mild abdominal pain most probably from constipation CAT scan of the abdomen is being obtained, if that is negative patient probably can be discharged. Patient does have leukocytosis without any signs or symptoms of infection. Patient was advised to come back to the hospital if at all she is discharged today and if her CAT scan of the abdomen did not show any significant abnormality my if she has any multiple stools dark stools or blood in the stools. And I believe mild discoloration of the stools is secondary to medications. \ At the time of her last discharge patient was discharged on oxygen for COPD patient presently is not requiring oxygen no wheezing on exam and will not require any more home O2 Review of Systems REVIEW OF SYSTEMS: CONSTITUTIONAL: No fever, no malaise, no fatigue. HEENT: No recent visual problems or hearing problems. Denied any sore throat. CARDIOVASCULAR: No chest pain, orthopnea, PND, no palpitations, no syncope. PULMONARY: No shortness of breath, no cough, no hemoptysis. GASTROINTESTINAL: As mentioned in HPI NEUROLOGICAL: No headaches, no weakness, no numbness. HEMATOLOGICAL: Denies any bleeding or petechiae. GENITOURINARY: Denies any burning micturition, frequency, or urgency. MUSCULOSKELETAL/RHEUMATOLOGICAL: Denies any joint pain, swelling, or any muscle pain. ENDOCRINE: Denies any polyuria or polydipsia. The rest of the 14-point review of systems is negative. Past Medical History Past Medical History: Asthma, Cancer, COPD, GI Bleed, Hypertension, Musculoskeletal Disorder, Osteoarthritis (OA), Thyroid Disorder Additional Past Medical History / Comment(s): COLOSTOMY, 3rd degree heart block with pacemaker, arthritis L foot and bilateral knees, colitis/stomach ulcer in the 1970s/lower GI bleed,past migraines as a teen, vertigo, skin cancer with removal. History of Any Multi-Drug Resistant Organisms: None Reported Past Surgical History: Appendectomy, Hernia Repair, Hysterectomy, Joint Replacement, Orthopedic Surgery, Pacemaker Additional Past Surgical History / Comment(s): LAPROSCOPIC LYSIS OF ADHESIONS WITH COLECTOMY, TTT, loop recorder, pacemaker, skin cancer removal L cheek/skin graft, inguinal hernia repairs x3, BECCA total knee bilateral knee arthroscopies, partial thyroidectomy, pain clinic procedures (cervical), bilateral lasik eye surgery for vision correction. right shoulder replacement, bowel resection on by Dr. Hutton Past Anesthesia/Blood Transfusion Reactions: No Reported Reaction Type of Cardiac Device: Permanent Pacemaker Device Placement Date:: 2015 Past Psychological History: No Psychological Hx Reported Smoking Status: Current some day smoker Past Alcohol Use History: Occasional Past Drug Use History: None Reported - Past Family History Son(s) Family Medical History: Cancer Additional Family Medical History / Comment(s): TESTICULAR CA IN SONS X2 Daughter(s) Family Medical History: Cancer Additional Family Medical History / Comment(s): OVARIAN CANCER Mother Family Medical History: Cancer Additional Family Medical History / Comment(s): STOMACH CANCER Father Family Medical History: No Reported History Additional Family Medical History / Comment(s): Father was healthy Medications and Allergies Home Medications Medication Instructions Recorded Confirmed Type Ibuprofen [Motrin] 800 mg PO TID PRN 12/01/17 05/29/18 History Albuterol Inhaler [Ventolin Hfa 1 - 2 puff INHALATION RT-Q6H PRN 05/09/18 History Inhaler] NIFEdipine [NIFEdipine ER] 30 mg PO QAM 05/09/18 05/29/18 History Levothyroxine Sodium [Synthroid] 137 mcg PO DAILY 05/12/18 05/29/18 History Albuterol Nebulized [Ventolin 2.5 mg INHALATION RT-Q4H PRN 05/13/18 05/29/18 History Nebulized] Cefuroxime Axetil [Ceftin] 500 mg PO BID #14 tab 05/20/18 05/29/18 Rx predniSONE 10 mg PO DAILY #30 tab 05/20/18 05/29/18 Rx Allergies Allergy/AdvReac Type Severity Reaction Status Date / Time acetaminophen [From [place]] Allergy Nausea & Verified 05/29/18 13:15 Vomiting hydrocodone Allergy Nausea & Verified 05/29/18 13:15 Vomiting hydrocodone bitartrate Allergy Nausea & Verified 05/29/18 13:15 [From Vicodin] Vomiting Iodinated Contrast- Oral and Allergy Nausea & Verified 05/29/18 13:15 IV Dye Vomiting hydromorphone [From Dilaudid] AdvReac Vomiting Verified 05/29/18 13:15 grass,mold,dust,cats,trees Allergy Unknown Uncoded 05/13/18 11:07 tape Allergy paper tape Uncoded 05/13/18 11:07 only Physical Exam Vitals: Vital Signs Temp Pulse Resp BP Pulse Ox 05/29/18 12:52 98.6 F 79 18 172/88 98 Intake and Output 05/29/18 05/29/18 05/29/18 06:59 14:59 22:59 Other: Weight 78.471 kg PHYSICAL EXAMINATION: GENERAL: The patient is alert and oriented x3, not in any acute distress. Well developed, well nourished. HEENT: Pupils are round and equally reacting to light. EOMI. No scleral icterus. No conjunctival pallor. Normocephalic, atraumatic. No pharyngeal erythema. No thyromegaly. CARDIOVASCULAR: S1 and S2 present. No murmurs, rubs, or gallops. PULMONARY: Chest is clear to auscultation, no wheezing or crackles. ABDOMEN: Soft, nontender, nondistended, normoactive bowel sounds. No palpable organomegaly. Surgical site areas are cleaned patient still has some sumaya from her previous surgery MUSCULOSKELETAL: No joint swelling or deformity. EXTREMITIES: No cyanosis, clubbing, or pedal edema. NEUROLOGICAL: Gross neurological examination did not reveal any focal deficits. SKIN: No rashes. Results CBC & Chem 7: 05/29/18 13:52 05/29/18 13:52 Labs: Abnormal Lab Results - Last 24 Hours (Table) 05/29/18 05/29/18 05/29/18 Range/Units 13:52 13:52 13:52 WBC 13.4 H (3.8-10.6) k/uL Hgb 11.3 L (11.4-16.0) gm/dL Neutrophils # 12.0 H (1.3-7.7) k/uL Lymphocytes # 0.7 L (1.0-4.8) k/uL BUN 18 H (7-17) mg/dL Glucose 116 H (74-99) mg/dL Stool Occult Blood Positive H (Negative) Assessment and Plan Plan: -Ruled out acute GI bleed: As mentioned above the possibility of this being an acute GI bleed is low as patient only had 1 stool a day which is also light red color which can be from her medications there is no evidence of acute GI bleed as patient is not willing to stay it's probably okay to discharge the patient with the above-mentioned instructions -COPD without any acute exacerbation -Leukocytosis from the prednisone she was taking for has COPD from her recent discharge -Hypertension -Hypothyroidism -Osteoarthritis Patient says she did quit smoking and smokes since her discharge
--- NOTE | 2018-05-29 16:17 | CT ---
EXAMINATION TYPE: CT abdomen pelvis w con DATE OF EXAM: 05/29/2018 COMPARISON: 12/01/2017 INDICATION: Blood in stool DLP: 863.4 mGycm, Automated exposure control for dose reduction was used. CONTRAST: 100 mL of Isovue 370. Study performed without Oral Contrast TECHNIQUE: Axial images were obtained from above the diaphragm to the pubic rami in the axial plane a t 5 mm thick sections. Reconstructed images are reviewed on the computer in the coronal plane. FINDINGS: Limited CT sections are obtained the lung bases. The lung bases are clear. CT ABDOMEN: Liver: Normal Spleen: Normal Pancreas: Normal Adrenal glands: The adrenal glands are normal. Gallbladder: Not identified Kidneys: No masses are evident. No hydronephrosis is present. There is a 1.0 cm cyst on the medial left upper kidney. Aorta: Vascular calcification is within the aorta. Inferior vena cava: Normal. CT PELVIS: Small bowel loops appear slightly prominent. Consider ileus within the differential. This could be po stsurgical ileus. No free air is identified. Postsurgical skin sumaya are present anteriorly. Scatte red diverticuli are through the sigmoid colon. No acute diverticulitis is evident. Appendix: Not identified. No suspicious inflammatory changes or dilated tubular structures are eviden t. Urinary bladder: Decompressed with limited evaluation. Genitourinary structures: Uterus and ovaries are not identified. Osseous structures: No suspicious lytic or sclerotic lesions. Degenerative disc changes are present L 5-S1. Facet degenerative changes are present through the lumbar spine. Degenerative disc changes are present within the lower thoracic spine. Endplate changes are present without loss of vertebral body height. IMPRESSIONS: 1. Diverticulosis without acute diverticulitis. 2. Mild small bowel ileus may be within the midabdomen near the surgical incision site.
[2018-05-29 16:43] VITALS: BP 132/65; PULSE 72; RESP 18; TEMP 97.9
== END 2018-05-29 16:35 | disposition home or self-care (01) ==
LOC: EC 12:21
DX: R19.5 Other fecal abnormalities (principal); J44.9 Chronic obstructive pulmonary disease, unspecified; D72.829 Elevated white blood cell count, unspecified; I10 Essential (primary) hypertension; E03.9 Hypothyroidism, unspecified; M19.90 Unspecified osteoarthritis, unspecified site; E07.9 Disorder of thyroid, unspecified; F17.200 Nicotine dependence, unspecified, uncomplicated; Z79.890 Hormone replacement therapy; Z79.899 Other long term (current) drug therapy; Z88.5 Allergy status to narcotic agent; Z88.6 Allergy status to analgesic agent; Z91.048 Other nonmedicinal substance allergy status; Z91.041 Radiographic dye allergy status; Z91.09 Other allergy status, other than to drugs and biological substances; Z95.0 Presence of cardiac pacemaker; Z85.828 Personal history of other malignant neoplasm of skin; Z96.611 Presence of right artificial shoulder joint
CPT/HCPCS: 36415; 80053; 85025; 85610; 85730; 82272; 74177; 99285; 96374; 96361 ×2; J1200; Q9967

== ENCOUNTER → 2019-06-21 | Outpatient (CLI) | payer MEDICARE, BC ==
--- NOTE | 2019-06-23 13:15 | MM ---
Reason for exam: screening (asymptomatic). Last mammogram was performed 1 year and 4 months ago. History: Patient is postmenopausal and history of other cancer. Physical Findings: A clinical breast exam by your physician is recommended on an annual basis and results should be correlated with mammographic findings. MG 3D Screening Mammo W/Cad Bilateral CC and MLO view(s) were taken. Prior study comparison: February 17, 2018, bilateral MG 3d screening mammo w/cad. January 04, 2017, left breast MG 3d diag mammo w/cad LT. There are scattered fibroglandular densities. Generator device on the left. No significant changes when compared with prior studies. ASSESSMENT: Negative, BI-RAD 1 RECOMMENDATION: Routine screening mammogram of both breasts in 1 year.
== END | disposition home or self-care (01) ==
LOC: RADMAMWWP 13:02
PROVIDERS: ATTEND Family Medicine
DX: Z12.31 Encounter for screening mammogram for malignant neoplasm of breast (principal)
CPT/HCPCS: 77063; 77067

== ENCOUNTER → 2019-11-17 | Outpatient (CLI) | payer MEDICARE, BC ==
--- NOTE | 2019-11-17 14:51 | NM ---
EXAMINATION TYPE: NM bone 3 phase DATE OF EXAM: 11/17/2019 COMPARISON: NONE HISTORY: Right knee replacement 2015, left knee replacement 2004 Triple phase bone scintigraphy was performed following the injection of 24.2 mCi Tc 99m MDP. Immedia te images and 4.5 hours post injection images acquired. SPECT imaging was performed. FINDINGS: Blood flow: Blood flow over the bilateral knees is performed. There is slight increased radiotracer t hrough the right knee compared to the left. Blood pool: There is increased radiotracer accumulation through the right knee compared to the left. Some of this extends right laterally matching the uptake on blood flow. Delayed images: There is increased radiotracer accumulation along the joint spaces of the bilateral k nees. There is increased radiotracer accumulation within the bilateral patella. SPECT imaging: Increased radiotracer accumulation is within the patella. Increased radiotracer is rory ng the anterior tibia extending into the medial portion lateral tibial plateau. Some increased radiotracer within the left posterior lateral compartment is also noted. IMPRESSION: Increased radiotracer accumulation within the region of the right tibial plateau slightly greater in the mid to lateral portion suspicious for osteomyelitis. Correlation with plain film to evaluate for lucency adjacent to the patient's prosthesis is recommended.
--- NOTE | 2019-11-17 15:33 | NM ---
EXAMINATION TYPE: NM bone SPECT DATE OF EXAM: 11/17/2019 COMPARISON: Three-phase bone scan same date HISTORY: Pain in right knee TECHNIQUE: SPECT images performed through the bilateral knees. FINDINGS: This exam is performed in conjunction with the three-phase bone scan. Please see three-phas e bone scan report of same date. IMPRESSION: 1. Findings suggestive for osteomyelitis. Please see three-phase bone scan report of same date.
== END | disposition home or self-care (01) ==
LOC: RADNMMAIN 07:03
PROVIDERS: ATTEND Orthopaedic Surgery
DX: M12.9 Arthropathy, unspecified (principal); Z96.653 Presence of artificial knee joint, bilateral
CPT/HCPCS: 85652; 86140; 78315; 36415; 78803; A9503

== ENCOUNTER 2021-04-04 04:48 | Emergency (ER) | payer MEDICARE, BC ==
[2021-04-04 04:55] VITALS: RESP 18
--- NOTE | 2021-04-04 04:58 | ED ---
Chest Pain HPI - General Chief Complaint: Chest Pain Stated Complaint: Chest Pain Time Seen by Provider: 04/04/21 04:50 Source: patient, RN notes reviewed, old records reviewed Mode of arrival: ambulatory Limitations: no limitations - History of Present Illness Initial Comments: This is an 80-year-old female to the ER for evaluation of chest pain chest pain abdominal pain. Mild nausea, some bilateral arm pain chest squeezing. Patient does have history of asthma COPD as well as high cholesterol. Patient had symptoms are off for the last 2-3 days. There worsening which made her concerned and presents emergency department. Currently no other complaints MD Complaint: chest pain -: days(s) (3) Onset: during rest, during exertion Pain Location: substernal Pain Radiation: none Severity: mild Severity scale (1-10): 2 Quality: tightness Consistency: intermittent Improves With: nothing Worsens With: nothing Anginal Symptoms: nausea Other Symptoms: palpitations Treatments Prior to Arrival: none - Related Data Home Medications Medication Instructions Recorded Confirmed Albuterol Inhaler (Mhu) [Ventolin 1 - 2 puff INHALATION RT-Q6H PRN 05/09/18 05/29/18 Hfa Inhaler (Mhu)] NIFEdipine [NIFEdipine ER 30 mg PO QAM 05/09/18 05/29/18 (Osmotic)] Levothyroxine Sodium [Synthroid] 137 mcg PO DAILY 05/12/18 05/29/18 Albuterol Nebulized [Ventolin 2.5 mg INHALATION RT-Q4H PRN 05/13/18 05/29/18 Nebulized] Previous Rx's Medication Instructions Recorded Cefuroxime Axetil [Ceftin] 500 mg PO BID #14 tab 05/20/18 predniSONE 10 mg PO DAILY #30 tab 05/20/18 Omeprazole [PriLOSEC] 40 mg PO PERCY-ELDERKFSDurga #14 abel. 05/29/18 Allergies Allergy/AdvReac Type Severity Reaction Status Date / Time acetaminophen [From [place]] Allergy Nausea & Verified 04/04/21 04:55 Vomiting hydrocodone Allergy Nausea & Verified 04/04/21 04:55 Vomiting hydrocodone bitartrate Allergy Nausea & Verified 04/04/21 04:55 [From Vicodin] Vomiting Iodinated Contrast Media Allergy Nausea & Verified 04/04/21 04:55 [Iodinated Contrast- Oral Vomiting and IV Dye] hydromorphone [From Dilaudid] AdvReac Vomiting Verified 04/04/21 04:55 grass,mold,dust,cats,trees Allergy Unknown Uncoded 04/04/21 04:55 tape Allergy paper tape Uncoded 04/04/21 04:55 only Review of Systems ROS Statement: Those systems with pertinent positive or pertinent negative responses have been documented in the HPI. ROS Other: All systems not noted in ROS Statement are negative. 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 History of Any Multi-Drug Resistant Organisms: None Reported Past Surgical History: Appendectomy, Hernia Repair, Hysterectomy, Joint Replacement, Orthopedic Surgery, Pacemaker Additional Past Surgical History / Comment(s): LAPROSCOPIC LYSIS OF ADHESIONS WITH COLECTOMY, TTT, loop recorder, pacemaker, skin cancer removal L cheek/skin graft, inguinal hernia repairs x3, BECCA total knee bilateral knee arthroscopies, partial thyroidectomy, pain clinic procedures (cervical), bilateral lasik eye surgery for vision correction. right shoulder replacement, bowel resection on 05/13/[address] Hutton Past Anesthesia/Blood Transfusion Reactions: No Reported Reaction Type of Cardiac Device: Permanent Pacemaker Device Placement Date:: 2015 Past Psychological History: No Psychological Hx Reported Smoking Status: Current every day smoker Past Alcohol Use History: Occasional Past Drug Use History: None Reported - Past Family History Son(s) Family Medical History: Cancer Additional Family Medical History / Comment(s): TESTICULAR CA IN SONS X2 Daughter(s) Family Medical History: Cancer Additional Family Medical History / Comment(s): OVARIAN CANCER Mother Family Medical History: Cancer Additional Family Medical History / Comment(s): STOMACH CANCER Father Family Medical History: No Reported History Additional Family Medical History / Comment(s): Father was healthy General Exam Limitations: no limitations General appearance: alert, in no apparent distress, anxious Head exam: Present: atraumatic, normocephalic, normal inspection Eye exam: Present: normal appearance, PERRL, EOMI. Absent: scleral icterus, conjunctival injection, periorbital swelling ENT exam: Present: normal exam, mucous membranes moist Neck exam: Present: normal inspection. Absent: tenderness, meningismus, lymphadenopathy Respiratory exam: Present: normal lung sounds bilaterally. Absent: respiratory distress, wheezes, rales, rhonchi, stridor Cardiovascular Exam: Present: regular rate, normal rhythm, normal heart sounds. Absent: systolic murmur, diastolic murmur, rubs, gallop, clicks GI/Abdominal exam: Present: soft, tenderness, normal bowel sounds. Absent: distended, guarding, rebound, rigid Extremities exam: Present: normal inspection, full ROM, normal capillary refill. Absent: tenderness, pedal edema, joint swelling, calf tenderness Back exam: Present: normal inspection Neurological exam: Present: alert, oriented X3, CN II-XII intact Psychiatric exam: Present: normal affect, normal mood Skin exam: Present: warm, dry, intact, normal color. Absent: rash Course Vital Signs 04/04/21 04/04/21 04:51 07:20 Temperature 98.1 F 97.8 F Pulse Rate 89 79 Respiratory 18 18 Rate Blood Pressure 163/83 167/89 O2 Sat by Pulse 94 L 97 Oximetry - Reevaluation(s) Reevaluation #1: Medical record is reviewed Patient symptoms are significantly improved here in the emergency department Patient informed results and questions answered Chest Pain MDM - MDM 80 female with squeezing chest and bilateral arm pain. Patient also some mild epigastric abdominal pain. No acute findings here in the ER. Patient feels goo d for discharge home does not want further admission or observation Disposition Clinical Impression: Chest pain, Abdominal pain Disposition: HOME SELF-CARE Condition: Good Instructions (If sedation given, give patient instructions): Chest Pain (ED), Abdominal Pain (ED) Is patient prescribed a controlled substance at d/c from ED?: No Referrals: Keila Young DO [Primary Care Provider] - 1-2 days
[2021-04-04 06:12] LABS: Basophils % (A) 0 %; Eosinophils # (A) 0.2 k/uL (0-0.7); Eosinophils % (A) 2 %; HCT 41.5 % (34.0-46.0); HGB 13.2 gm/dL (11.4-16.0); Lymphocytes % (A) 10 %; MCH 31.6 pg (25.0-35.0); MCHC 31.8 g/dL (31.0-37.0); MCV 99.5 fL (80.0-100.0); Mean Platelet Volume 8.3; Monocytes # (A) 0.7 k/uL (0-1.0); Monocytes % (A) 7 %; Neutrophils # (A) 8.5 k/uL (1.3-7.7); Neutrophils % (A) 81 %; Platelet Count 247 k/uL (150-450); RBC 4.17 m/uL (3.80-5.40); RDW 14.2 % (11.5-15.5); WBC 10.5 k/uL (3.8-10.6)
--- NOTE | 2021-04-04 06:25 | XR ---
EXAMINATION TYPE: XR chest 2V DATE OF EXAM: 04/04/2021 COMPARISON: Chest x-ray May 20, 2018 HISTORY: Chest pain. TECHNIQUE: Frontal and lateral views of the chest are obtained. FINDINGS: There is background chronic emphysematous change without suspicious new focal air space op acity, pleural effusion, or pneumothorax seen. The cardiac silhouette size is mildly enlarged with d ual lead pacemaker redemonstrated. Surgical change to right humeral head is redemonstrated. IMPRESSION: Mild cardiomegaly without acute pulmonary process.
[2021-04-04 06:29] LABS: ALT 17 U/L (4-34); AST 47 U/L (14-36); African American GFR (CKD) >90 (>60 ml/min/1.73 sqM); Albumin 4.2 g/dL (3.5-5.0); Alkaline Phosphatase 50 U/L (38-126); Anion Gap 4 mmol/L; Blood Urea Nitrogen 20 mg/dL (7-17); Calcium 9.5 mg/dL (8.4-10.2); Carbon Dioxide 25 mmol/L (22-30); Chloride 105 mmol/L (98-107); Glucose 109 mg/dL (74-99); LDH 1194 U/L (313-618); Lipase 38 U/L (23-300); Magnesium 2.4 mg/dL (1.6-2.3); Non-African American GFR(CKD) 83 (>60 ml/min/1.73 sqM); Sodium 134 mmol/L (137-145); Total Bilirubin 1.5 mg/dL (0.2-1.3); Total Protein 7.2 g/dL (6.3-8.2)
[2021-04-04 06:32] LABS: Potassium 5.5 mmol/L (3.5-5.1)
[2021-04-04 06:41] LABS: Partial Thromboplastin Time 22.6 sec (22.0-30.0); Prothrombin Time 10.4 sec (9.0-12.0)
[2021-04-04 06:54] LABS: C Reactive Protein <0.5 mg/dL (<1.0)
[2021-04-04 07:22] VITALS: BP 167/89; PULSE 79; TEMP 97.8
== END 2021-04-04 07:22 | disposition home or self-care (01) ==
LOC: EC 04:48
DX: R07.89 Other chest pain (principal); R10.13 Epigastric pain; I10 Essential (primary) hypertension; J44.9 Chronic obstructive pulmonary disease, unspecified; M19.90 Unspecified osteoarthritis, unspecified site; F17.200 Nicotine dependence, unspecified, uncomplicated; Z79.51 Long term (current) use of inhaled steroids; Z79.52 Long term (current) use of systemic steroids; Z79.890 Hormone replacement therapy; Z79.899 Other long term (current) drug therapy
CPT/HCPCS: 36415; 71046; 80053; 83615; 83690; 83735; 83880; 84484; 85025; 85379; 85610; 85730; 86140; 87635; 93005; 99285

== ENCOUNTER → 2021-04-08 | Outpatient (CLI) | payer MEDICARE, BC ==
--- NOTE | 2021-04-08 14:58 | US ---
EXAMINATION TYPE: US abdomen complete DATE OF EXAM: 04/08/2021 COMPARISON: CT dated 05/29/2018 CLINICAL HISTORY: R10.84 Generalized abdominal pain. Pt states generalized ABD pain EXAM MEASUREMENTS: Liver Length: 13.0 cm Gallbladder Wall: 0.2 cm CBD: 0.7 cm Spleen: 7.3 cm Right Kidney: 9.8 x 5.1 x 4.0 cm Left Kidney: 9.6 x 4.9 x 4.2 cm Pancreas: Obscured by bowel gas Liver: wnl Gallbladder: wnl Evidence for sonographic Almanzar's sign: No CBD: wnl Spleen: wnl Right Kidney: Kidneys show normal cortical medullary differentiation, portions of the right kidney ob scured by overlying shadowing Possible probable parapelvic cyst mid left kidney = 1.1 x 0.8 x 1.5 cm Left Kidney: wnl Upper IVC: wnl Abd Aorta: Proximal portion wnl, mid and distal portion gassed out The liver is homogenous. The intrahepatic portion of the IVC and proximal abdominal aorta are within normal limits. There is no evidence of cholelithiasis. Common bile duct is unremarkable. The visu alized portions of the pancreas are homogenous. The spleen is unremarkable. Kidneys are symmetric a nd free of hydronephrosis as visualized. No renal lesions are seen. IMPRESSION: There are some limitations the exam. No abnormality evident to account for patient's symp toms.
== END | disposition home or self-care (01) ==
LOC: RADUSWWP 12:55
PROVIDERS: ATTEND Family Medicine
DX: R10.84 Generalized abdominal pain (principal)
CPT/HCPCS: 76700

== ENCOUNTER 2021-08-25 14:10 | Emergency (ER) | payer MEDICARE, BC ==
[2021-08-25] MEDS ORDERED: SODIUM CHLORIDE 0.9% 500 ML 500 ML IV STA (16:12)
[2021-08-25 16:29] LABS: Basophils % (A) 1 %; Eosinophils # (A) 0.2 k/uL (0-0.7); Eosinophils % (A) 3 %; HCT 43.5 % (34.0-46.0); HGB 13.9 gm/dL (11.4-16.0); Lymphocytes # (A) 1.1 k/uL (1.0-4.8); Lymphocytes % (A) 17 %; MCH 30.8 pg (25.0-35.0); MCHC 32.1 g/dL (31.0-37.0); MCV 95.9 fL (80.0-100.0); Mean Platelet Volume 7.4; Monocytes # (A) 0.5 k/uL (0-1.0); Monocytes % (A) 8 %; Neutrophils # (A) 4.4 k/uL (1.3-7.7); Neutrophils % (A) 68 %; Platelet Count 271 k/uL (150-450); RBC 4.53 m/uL (3.80-5.40); RDW 14.5 % (11.5-15.5); WBC 6.5 k/uL (3.8-10.6)
--- NOTE | 2021-08-25 16:37 | ED ---
General Adult HPI - General Chief complaint: Abdominal Pain Stated complaint: Abdominal Pain, Dizziness Time Seen by Provider: 08/25/21 16:05 Source: patient, RN notes reviewed, old records reviewed Mode of arrival: wheelchair Limitations: no limitations - History of Present Illness Initial comments: 80 -year-old female sent in for evaluation of abdominal pain, nausea vomiting. Patient states that today she developed some predominantly epigastric as well as generalized abdominal pain. She had some dry heaving. This symptom is currently resolved but it was associated with some lightheadedness. She had a previous episode several years ago that began similar to this where she states she became septic. She has not had a fever. She's not had dysuria or hematuria. She does have a chronic cough which is unchanged. No chest pain. - Related Data Home Medications Medication Instructions Recorded Confirmed Albuterol Inhaler (Mhu) [Ventolin 1 - 2 puff INHALATION RT-Q6H PRN 05/09/18 05/29/18 Hfa Inhaler (Mhu)] NIFEdipine [NIFEdipine ER 30 mg PO QAM 05/09/18 05/29/18 (Osmotic)] Levothyroxine Sodium [Synthroid] 137 mcg PO DAILY 05/12/18 05/29/18 Albuterol Nebulized [Ventolin 2.5 mg INHALATION RT-Q4H PRN 05/13/18 05/29/18 Nebulized] Previous Rx's Medication Instructions Recorded Cefuroxime Axetil [Ceftin] 500 mg PO BID #14 tab 05/20/18 predniSONE 10 mg PO DAILY #30 tab 05/20/18 Omeprazole [PriLOSEC] 40 mg PO [place] #14 capsule. 05/29/18 Allergies Allergy/AdvReac Type Severity Reaction Status Date / Time acetaminophen [From [place]] Allergy Nausea & Verified 08/25/21 14:18 Vomiting hydrocodone Allergy Nausea & Verified 08/25/21 14:18 Vomiting hydrocodone bitartrate Allergy Nausea & Verified 08/25/21 14:18 [From Vicodin] Vomiting Iodinated Contrast Media Allergy Nausea & Verified 08/25/21 14:18 [Iodinated Contrast- Oral Vomiting and IV Dye] hydromorphone [From Dilaudid] AdvReac Vomiting Verified 08/25/21 14:18 grass,mold,dust,cats,trees Allergy Unknown Uncoded 08/25/21 14:18 tape Allergy paper tape Uncoded 08/25/21 14:18 only Review of Systems ROS Statement: Those systems with pertinent positive or pertinent negative responses have been documented in the HPI. ROS Other: All systems not noted in ROS Statement are negative. Past Medical History Past Medical History: Asthma, Cancer, COPD, GI Bleed, Hypertension, Musculoskeletal Disorder, Osteoarthritis (OA), Thyroid Disorder Additional Past Medical History / Comment(s): COLOSTOMY, 3rd degree heart block with pacemaker, arthritis L foot and bilateral knees, colitis/stomach ulcer in the 1970s/lower GI bleed,past migraines as a teen, vertigo, skin cancer with removal. History of Any Multi-Drug Resistant Organisms: None Reported Past Surgical History: Appendectomy, Hernia Repair, Hysterectomy, Joint Rep lacement, Orthopedic Surgery, Pacemaker Additional Past Surgical History / Comment(s): LAPROSCOPIC LYSIS OF ADHESIONS WITH COLECTOMY, TTT, loop recorder, pacemaker, skin cancer removal L cheek/skin graft, inguinal hernia repairs x3, BECCA total knee bilateral knee arthroscopies, partial thyroidectomy, pain clinic procedures (cervical), bilateral lasik eye surgery for vision correction. right shoulder replacement, bowel resection on 05/13/[address] Hutton Past Anesthesia/Blood Transfusion Reactions: No Reported Reaction Type of Cardiac Device: Permanent Pacemaker Device Placement Date:: 2015 Past Psychological History: No Psychological Hx Reported Smoking Status: Current every day smoker Past Alcohol Use History: Occasional Past Drug Use History: None Reported - Past Family History Son(s) Family Medical History: Cancer Additional Family Medical History / Comment(s): TESTICULAR CA IN SONS X2 Daughter(s) Family Medical History: Cancer Additional Family Medical History / Comment(s): OVARIAN CANCER Mother Family Medical History: Cancer Additional Family Medical History / Comment(s): STOMACH CANCER Father Family Medical History: No Reported History Additional Family Medical History / Comment(s): Father was healthy General Exam Limitations: no limitations General appearance: alert, in no apparent distress Head exam: Present: atraumatic, normocephalic Eye exam: Present: normal appearance, PERRL ENT exam: Present: normal exam Neck exam: Present: normal inspection, meningismus Respiratory exam: Present: normal lung sounds bilaterally. Absent: respiratory distress Cardiovascular Exam: Present: regular rate, normal rhythm GI/Abdominal exam: Present: soft, tenderness (Epigastric). Absent: distended, guarding Extremities exam: Present: normal inspection, normal capillary refill. Absent: pedal edema Neurological exam: Present: alert, oriented X3, CN II-XII intact. Absent: motor sensory deficit Psychiatric exam: Present: normal affect, normal mood Skin exam: Present: warm, dry, intact. Absent: cyanosis, diaphoretic Course Vital Signs 08/25/21 08/25/21 08/25/21 14:14 15:38 16:44 Temperature 97.6 F Pulse Rate 91 74 77 Respiratory 18 18 16 Rate Blood Pressure 139/72 143/77 133/99 O2 Sat by Pulse 95 95 93 L Oximetry 08/25/21 18:52 Temperature Pulse Rate 75 Respiratory 18 Rate Blood Pressure 138/84 O2 Sat by Pulse 92 L Oximetry - Reevaluation(s) Reevaluation #1: 08/25/21 17:51 Patient adamant that she be discharged. She is given return parameters and will return with worsening or changing symptoms. EKG Findings - EKG Comments: EKG Findings:: EKG: Sinus rhythm first-degree AV block with PVC, rate of 80, NH interval 226, QRS duration 104, QTC 431 Medical Decision Making - Medical Decision Making 80-year-old female presented for evaluation of abdominal pain which was resolved with time my evaluation and vomiting as well as lightheadedness. Patient was well-appearing with stable vitals. Her abdomen was nonsurgical, very minimal epigastric tenderness. Her laboratory testing including CBC, CMP were unremarkable. EKG was sinus rhythm without ST segment elevation. I did reevaluate the patient and she was very eager for discharge. I plan to perform CT imaging and patient initially declined however after some thought she did agree to CT imaging of the abdomen this was performed in the emergency department and negative for acute findings. - Lab Data Result diagrams: 08/25/21 16:22 08/25/21 16: Lab Results 08/25/21 08/25/21 08/25/21 Range/Units 16:22 16: 16: WBC 6.5 (3.8-10.6) k/uL RBC 4.53 (3.80-5.40) m/uL Hgb 13.9 (11.4-16.0) gm/dL Hct 43.5 (34.0-46.0) % MCV 95.9 (80.0-100.0) fL MCH 30.8 (25.0-35.0) pg MCHC 32.1 (31.0-37.0) g/dL RDW 14.5 (11.5-15.5) % Plt Count 271 (150-450) k/uL MPV 7.4 Neutrophils % 68 % Lymphocytes % 17 % Monocytes % 8 % Eosinophils % 3 % Basophils % 1 % Neutrophils # 4.4 (1.3-7.7) k/uL Lymphocytes # 1.1 (1.0-4.8) k/uL Monocytes # 0.5 (0-1.0) k/uL Eosinophils # 0.2 (0-0.7) k/uL Basophils # 0.0 (0-0.2) k/uL PT 10.4 (9.0-12.0) sec INR 1.0 (<1.2) APTT 26.4 (22.0-30.0) sec Sodium (137-145) mmol/L Potassium (3.5-5.1) mmol/L Chloride (98-107) mmol/L Carbon Dioxide (22-30) mmol/L Anion Gap mmol/L BUN (7-17) mg/dL Creatinine (0.52-1.04) mg/dL Est GFR (CKD-EPI)AfAm (>60 ml/min/1.73 sqM) Est GFR (CKD-EPI)NonAf (>60 ml/min/1.73 sqM) Glucose (74-99) mg/dL Plasma Lactic Acid Bryn (0.7-2.0) mmol/L Calcium (8.4-10.2) mg/dL Total Bilirubin (0.2-1.3) mg/dL AST (14-36) U/L ALT (4-34) U/L Alkaline Phosphatase (38-126) U/L Troponin I (0.000-0.034) ng/mL Total Protein (6.3-8.2) g/dL Albumin (3.5-5.0) g/dL Amylase (30-110) U/L Lipase (23-300) U/L Urine Color Colorless Urine Appearance Clear (Clear) Urine pH 7.0 (5.0-8.0) Ur Specific [place] 1.003 (1.001-1.035) Urine Protein Negative (Negative) Urine Glucose (UA) Negative (Negative) Urine Ketones Negative (Negative) Urine Blood Negative (Negative) Urine Nitrite Negative (Negative) Urine Bilirubin Negative (Negative) Urine Urobilinogen <2.0 (<2.0) mg/dL Ur Leukocyte Esterase Negative (Negative) Coronavirus (PCR) (Not Detectd) Influenza Type A RNA (Not Detectd) Influenza Type B (PCR) (Not Detectd) 08/25/21 08/25/21 08/25/21 Range/Units 16:22 16:22 16:22 WBC (3.8-10.6) k/uL RBC (3.80-5.40) m/uL Hgb (11.4-16.0) gm/dL Hct (34.0-46.0) % MCV (80.0-100.0) fL MCH (25.0-35.0) pg MCHC (31.0-37.0) g/dL RDW (11.5-15.5) % Plt Count (150-450) k/uL MPV Neutrophils % % Lymphocytes % % Monocytes % % Eosinophils % % Basophils % % Neutrophils # (1.3-7.7) k/uL Lymphocytes # (1.0-4.8) k/uL Monocytes # (0-1.0) k/uL Eosinophils # (0-0.7) k/uL Basophils # (0-0.2) k/uL PT (9.0-12.0) sec INR (<1.2) APTT (22.0-30.0) sec Sodium 136 L (137-145) mmol/L Potassium 4.3 (3.5-5.1) mmol/L Chloride 104 (98-107) mmol/L Carbon Dioxide 25 (22-30) mmol/L Anion Gap 7 mmol/L BUN 10 (7-17) mg/dL Creatinine 0.56 (0.52-1.04) mg/dL Est GFR (CKD-EPI)AfAm >90 (>60 ml/min/1.73 sqM) Est GFR (CKD-EPI)NonAf 88 (>60 ml/min/1.73 sqM) Glucose 95 (74-99) mg/dL Plasma Lactic Acid Bryn 0.8 (0.7-2.0) mmol/L Calcium 9.3 (8.4-10.2) mg/dL Total Bilirubin 0.7 (0.2-1.3) mg/dL AST 29 (14-36) U/L ALT 14 (4-34) U/L Alkaline Phosphatase 82 (38-126) U/L Troponin I 0.027 (0.000-0.034) ng/mL Total Protein 6.7 (6.3-8.2) g/dL Albumin 4.0 (3.5-5.0) g/dL Amylase 53 (30-110) U/L Lipase 37 (23-300) U/L Urine Color Urine Appearance (Clear) Urine pH (5.0-8.0) Ur Specific [place] (1.001-1.035) Urine Protein (Negative) Urine Glucose (UA) (Negative) Urine Ketones (Negative) Urine Blood (Negative) Urine Nitrite (Negative) Urine Bilirubin (Negative) Urine Urobilinogen (<2.0) mg/dL Ur Leukocyte Esterase (Negative) Coronavirus (PCR) (Not Detectd) Influenza Type A RNA (Not Detectd) Influenza Type B (PCR) (Not Detectd) 08/25/21 08/25/21 Range/Units 16:22 16:22 WBC (3.8-10.6) k/uL RBC (3.80-5.40) m/uL Hgb (11.4-16.0) gm/dL Hct (34.0-46.0) % MCV (80.0-100.0) fL MCH (25.0-35.0) pg MCHC (31.0-37.0) g/dL RDW (11.5-15.5) % Plt Count (150-450) k/uL MPV Neutrophils % % Lymphocytes % % Monocytes % % Eosinophils % % Basophils % % Neutrophils # (1.3-7.7) k/uL Lymphocytes # (1.0-4.8) k/uL Monocytes # (0-1.0) k/uL Eosinophils # (0-0.7) k/uL Basophils # (0-0.2) k/uL PT (9.0-12.0) sec INR (<1.2) APTT (22.0-30.0) sec Sodium (137-145) mmol/L Potassium (3.5-5.1) mmol/L Chloride (98-107) mmol/L Carbon Dioxide (22-30) mmol/L Anion Gap mmol/L BUN (7-17) mg/dL Creatinine (0.52-1.04) mg/dL Est GFR (CKD-EPI)AfAm (>60 ml/min/1.73 sqM) Est GFR (CKD-EPI)NonAf (>60 ml/min/1.73 sqM) Glucose (74-99) mg/dL Plasma Lactic Acid Bryn (0.7-2.0) mmol/L Calcium (8.4-10.2) mg/dL Total Bilirubin (0.2-1.3) mg/dL AST (14-36) U/L ALT (4-34) U/L Alkaline Phosphatase (38-126) U/L Troponin I (0.000-0.034) ng/mL Total Protein (6.3-8.2) g/dL Albumin (3.5-5.0) g/dL Amylase (30-110) U/L Lipase (23-300) U/L Urine Color Urine Appearance (Clear) Urine pH (5.0-8.0) Ur Specific [place] (1.001-1.035) Urine Protein (Negative) Urine Glucose (UA) (Negative) Urine Ketones (Negative) Urine Blood (Negative) Urine Nitrite (Negative) Urine Bilirubin (Negative) Urine Urobilinogen (<2.0) mg/dL Ur Leukocyte Esterase (Negative) Coronavirus (PCR) Not Detected (Not Detectd) Influenza Type A RNA Not Detected (Not Detectd) Influenza Type B (PCR) Not Detected (Not Detectd) Disposition Clinical Impression: Abdominal pain Disposition: HOME SELF-CARE Condition: Fair Instructions (If sedation given, give patient instructions): Abdominal Pain (ED) Is patient prescribed a controlled substance at d/c from ED?: No Referrals: Keila Young DO [Primary Care Provider] - 1-2 days Time of Disposition: 17:51
[2021-08-25 16:38] LABS: Partial Thromboplastin Time 26.4 sec (22.0-30.0); Prothrombin Time 10.4 sec (9.0-12.0)
[2021-08-25 16:39] LABS: ALT 14 U/L (4-34); AST 29 U/L (14-36); African American GFR (CKD) >90 (>60 ml/min/1.73 sqM); Alkaline Phosphatase 82 U/L (38-126); Amylase 53 U/L (30-110); Anion Gap 7 mmol/L; Blood Urea Nitrogen 10 mg/dL (7-17); Calcium 9.3 mg/dL (8.4-10.2); Carbon Dioxide 25 mmol/L (22-30); Chloride 104 mmol/L (98-107); Glucose 95 mg/dL (74-99); Lipase 37 U/L (23-300); Non-African American GFR(CKD) 88 (>60 ml/min/1.73 sqM); Potassium 4.3 mmol/L (3.5-5.1); Sodium 136 mmol/L (137-145); Total Bilirubin 0.7 mg/dL (0.2-1.3); Total Protein 6.7 g/dL (6.3-8.2)
[2021-08-25 17:57] LABS: Appearance,Urine Clear (Clear); Bilirubin,Urine Negative (Negative); Blood,Urine Negative (Negative); Color,Urine Colorless; Glucose,Urine (UA) Negative (Negative); Ketones,Urine Negative (Negative); Leukocyte Esterase,Urine Negative (Negative); Nitrite,Urine Negative (Negative); Protein,Urine Negative (Negative); Specific Gravity,Urine 1.003 (1.001-1.035); Urobilinogen,Urine <2.0 mg/dL (<2.0)
--- NOTE | 2021-08-25 18:48 | CT ---
EXAMINATION TYPE: CT abdomen pelvis wo con DATE OF EXAM: 08/25/2021 COMPARISON: 05/29/2018 HISTORY: Abdominal pain CT DLP: 746.1 mGycm Automated exposure control for dose reduction was used. Images obtained from the diaphragm to the floor the pelvis without contrast. There is mild subsegmental atelectasis at the lung bases. Heart size is fairly normal. No pericardial effusion. No pleural effusion. Liver spleen stomach appear intact. The bile ducts are not dilated. Gallbladder has normal size. Ther e is no sign of pancreatic mass. There is no adrenal mass. Kidneys have normal size. No hydronephrosis. There is no retroperitoneal ad enopathy. Bladder distends smoothly. There is metal artifact from right hip prosthesis. No free fluid in the pelvis. There are multiple sigmoid diverticula. No diverticulitis. No evidence of free air. A ppendix not seen. No sign of thickened appendix. There are multiple phleboliths in the pelvis. The lumbar vertebrae have fairly normal alignment. There is moderate narrowing of disc spaces and ext ensive spurring of the endplates. No compression fracture. The bony pelvis is intact. There is hyster ectomy. IMPRESSION: There is mild scarring and subsegmental atelectasis right lung base increased compared to old exam. No acute abnormality in the abdomen pelvis. No adverse change compared to the old exam. Mild colonic diverticulosis without diverticulitis.
[2021-08-25] MEDS ORDERED: MECLIZINE 12.5 MG TAB PO STA (18:49)
[2021-08-25] MEDS ORDERED: KETOROLAC 15 MG/ML 1 ML VIAL IVP STA (18:50)
[2021-08-25] MEDS ORDERED: ONDANSETRON 4 MG/2 ML VIAL IVP STA (18:51)
[2021-08-25 18:53] VITALS: BP 138/84; RESP 18
[2021-08-25 19:18] VITALS: PULSE 74; TEMP 97.9
== END 2021-08-25 19:18 | disposition home or self-care (01) ==
LOC: EC 14:10
DX: R10.84 Generalized abdominal pain (principal); R11.2 Nausea with vomiting, unspecified; I10 Essential (primary) hypertension; J44.9 Chronic obstructive pulmonary disease, unspecified; F17.200 Nicotine dependence, unspecified, uncomplicated; E07.9 Disorder of thyroid, unspecified; Z79.890 Hormone replacement therapy; Z79.52 Long term (current) use of systemic steroids; Z79.51 Long term (current) use of inhaled steroids; Z79.899 Other long term (current) drug therapy; Z88.5 Allergy status to narcotic agent
CPT/HCPCS: 36415; 80053; 82150; 83605; 83690; 84484; 85025; 85610; 85730; 81003; 87502; 87635; 74176; 99284; 96374; 96375; 96361; J2405; J1885; 93005

== ENCOUNTER → 2021-09-11 | Outpatient (CLI) | payer MEDICARE, BC ==
--- NOTE | 2021-09-12 11:57 | MM ---
Reason for Exam: Screening (asymptomatic). Last mammogram was performed 2 year(s) and 2 month(s) ago. Patient History: Menarche at age 13. First Full-Term at age 19. Left ovary removed at age 34. Right ovary removed at age 34. Hysterectomy at age 34. Postmenopausal. Other cancer. Daughter had ovarian cancer under age 50. Risk Values: [place] 5 year model risk: 1.2%. NCI Lifetime model risk: 1.8%. Film Views: Bilateral CC views were taken. Bilateral MLO views were taken. Prior Study Comparison: 01/04/2017 Left Diagnostic Mammogram, [facility]. 02/17/2018 Bilateral Screening Mammogram, [facility]. 06/21/2019 Bilateral Screening Mammogram, [facility]. Tissue Density: There are scattered fibroglandular densities. Findings: Analyzed By CAD. Left axillary pacemaker device is redemonstrated. Benign-appearing vascular calcifications bilaterally is again seen. There is no suspicious group of microcalcifications or new suspicious mass in either breast. Overall Assessment: Benign, BI-RAD 2 Management: Screening Mammogram of both breasts in 1 year. A clinical breast exam by your physician is recommended on an annual basis and results should be correlated with mammographic findings. Electronically signed and approved by: Kodak Galvin M.D.
== END | disposition home or self-care (01) ==
LOC: RADMAMWWP 18:13
PROVIDERS: ATTEND Family Medicine
DX: Z12.31 Encounter for screening mammogram for malignant neoplasm of breast (principal)
CPT/HCPCS: 77063; 77067

== ENCOUNTER 2022-10-13 10:24 | Day surgery (SDC) | payer MEDICARE, BC ==
[~2022-10-13 10:24] MED LIST changes: -DEXAMETHASONE SOD PHOSPHATE 10 MG/ML 1 ML VIAL IV ONE; -HEPARIN SODIUM,PORCINE 5,000 UNIT/ML 1 ML VIAL SQ ONE; +LACTATED RINGERS 1,000 ML IV SCH; +LIDOCAINE 1% (10MG/ML) FOR IV START INTRADERMA PRN; -MIDAZOLAM 2 MG/2 ML VIAL IV PRN; -ONDANSETRON 4 MG/2 ML VIAL IVP ONE; -ceFAZolin IN SWFI 2 GM/20 ML SYRINGE IVP ONE; -fentaNYL (PF) 50 MCG/ML 2 ML AMP IV PRN; -metroNIDAZOLE-NS PMX 500 MG in SALINE 1 100ML.BAG IVPB STA
[2022-10-13 11:23] VITALS: RESP 16; TEMP 97.7
[2022-10-13] MEDS ORDERED: PROPOFOL 10 MG/ML 20 ML VIAL IV ONE (11:40)
--- NOTE | 2022-10-13 11:43 | P.GSHP ---
History of Present Illness H&P Date: 10/13/22 Chief Complaint: Change in bowel habits 82-year-old female known to our service. She was recently hospitalized with constipation and possible obstruction. Patient improved clinically with stool softeners and cathartics. No recurrent symptoms. Last colonoscopy several yea rs ago. Patient had previous resection for ischemic colitis. 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 History of Any Multi-Drug Resistant Organisms: None Reported Past Surgical History: Appendectomy, Hernia Repair, Hysterectomy, Joint Replacement, Orthopedic Surgery, Pacemaker, Tonsillectomy Additional Past Surgical History / Comment(s): LAPROSCOPIC LYSIS OF ADHESIONS WITH COLECTOMY, TTT, pacemaker, skin cancer removal L cheek/skin graft, inguinal hernia repairs x3, BECCA total knee bilateral knee arthroscopies, partial thyroidectomy, pain clinic procedures (cervical), bilateral lasik eye surgery for vision correction. right shoulder replacement, bowel resection on 05/13/[address] Hutton rt hip replaced, Past Anesthesia/Blood Transfusion Reactions: No Reported Reaction Type of Cardiac Device: Permanent Pacemaker Device Placement Date:: 2015 Smoking Status: Current every day smoker - Past Family History Son(s) Family Medical History: Cancer Additional Family Medical History / Comment(s): TESTICULAR CA IN SONS X2 Daughter(s) Family Medical History: Cancer Additional Family Medical History / Comment(s): OVARIAN CANCER Mother Family Medical History: Cancer Additional Family Medical History / Comment(s): STOMACH CANCER Father Family Medical History: No Reported History Additional Family Medical History / Comment(s): Father was healthy Medications and Allergies Home Medications Medication Instructions Recorded Confirmed Type Albuterol Inhaler [Ventolin Hfa 1 - 2 puff INHALATION RT-Q6H PRN 05/09/18 10/09/22 History Inhaler] NIFEdipine [NIFEdipine ER 30 mg PO QAM 05/09/18 10/09/22 History (Osmotic)] Levothyroxine Sodium [Synthroid] 137 mcg PO DAILY 05/12/18 10/09/22 History Albuterol Nebulized [Ventolin 2.5 mg INHALATION RT-Q4H PRN 05/13/18 10/09/22 History Nebulized] Gabapentin 300 mg PO DAILY 10/09/22 10/09/22 History Gabapentin 600 mg PO HS 10/09/22 10/09/22 History Allergies Allergy/AdvReac Type Severity Reaction Status Date / Time acetaminophen [From [place]] Allergy Nausea & Verified 10/13/22 11:10 Vomiting hydrocodone Allergy Nausea & Verified 10/13/22 11:10 Vomiting hydrocodone bitartrate Allergy Nausea & Verified 10/13/22 11:10 [From Vicodin] Vomiting Iodinated Contrast Media Allergy Nausea & Verified 10/13/22 11:10 [Iodinated Contrast- Oral Vomiting and IV Dye] hydromorphone [From Dilaudid] AdvReac Vomiting Verified 10/13/22 11:10 grass,mold,dust,cats,trees Allergy Unknown Uncoded 10/13/22 11:10 Surgical - Exam Vital Signs Temp Pulse Resp BP Pulse Ox 97.7 F 74 16 136/76 96 10/13/22 11:22 10/13/22 11:22 10/13/22 11:22 10/13/22 11:22 10/13/22 11:22 Physical exam: General: Well-developed, well-nourished HEENT: Normocephalic, sclerae nonicteric Abdomen: Nontender, nondistended Extremities: No edema Neuro: Alert and oriented Assessment and Plan (1) Change in bowel habits Narrative/Plan: Will proceed with colonoscopy at this time. Current Visit: No Status: Acute Code(s): R19.4 - CHANGE IN BOWEL HABIT SNOMED Code(s): 15238782
--- NOTE | 2022-10-13 12:01 | P.PCN ---
Date of Procedure: 10/13/22 Procedure(s) Performed: PREOPERATIVE DIAGNOSIS: Change in bowel habits POSTOPERATIVE DIAGNOSIS: Poor prep, diverticulosis PROCEDURE: Colonoscopy ANESTHESIA: MAC SURGEON: Dakota Hutton M.D. SPECIMENS: None ENDOSCOPIC PROCEDURE: The patient was placed on the endoscopy table in the left decubitus position. The Olympus colonoscope was inserted into the anus and passed under direct visualization to the base of the cecum. The patient's prep was poor. I could not visualize the base of the cecum. From that point the scope was slowly withdrawn inspecting all surfaces carefully. There were no neoplastic inflammatory or polypoid lesions throughout the cecum, ascending, descending, sigmoid and rectum. The previous colocolonic anastomosis was patent. There was extensive left-sided diverticulosis noted. Digital rectal examination was normal. The patient was taken to the recovery room in stable co ndition per anesthesia guidelines. RECOMMENDATIONS: Resume diet. Continue stool softeners as needed.
[2022-10-13 12:11] VITALS: BP 113/68; PULSE 73
== END 2022-10-13 12:35 | disposition home or self-care (01) ==
LOC: ORWHC2ENDO 10:24
PROVIDERS: ATTEND Surgery
DX: K57.30 Diverticulosis of large intestine without perforation or abscess without bleeding (principal); J44.9 Chronic obstructive pulmonary disease, unspecified; M19.90 Unspecified osteoarthritis, unspecified site; F17.200 Nicotine dependence, unspecified, uncomplicated; Z98.890 Other specified postprocedural states; Z90.89 Acquired absence of other organs; Z90.710 Acquired absence of both cervix and uterus; Z96.60 Presence of unspecified orthopedic joint implant; Z96.611 Presence of right artificial shoulder joint; Z79.51 Long term (current) use of inhaled steroids; Z79.899 Other long term (current) drug therapy; Z88.5 Allergy status to narcotic agent
CPT/HCPCS: 45378; J2704

== ENCOUNTER 2023-01-23 22:54 | Emergency (ER) | payer MEDICARE, BC ==
[2023-01-23 23:18] VITALS: TEMP 98.6
--- NOTE | 2023-01-24 00:44 | US ---
EXAMINATION TYPE: US venous doppler duplex LE LT DATE OF EXAM: 01/24/2023 12:30 AM COMPARISON: NONE CLINICAL INDICATION: Female, 82 years old with history of r/out DVT; Recent total knee, pain and swel ling with redness spreading up her inner thigh, no h/o dvt, not on thinners SIDE PERFORMED: Left TECHNIQUE: The lower extremity deep venous system is examined utilizing real time linear array sonog suzy with graded compression, doppler sonography and color-flow sonography. VESSELS IMAGED: Common Femoral Vein Deep Femoral Vein Greater Saphenous Vein * Femoral Vein Popliteal Vein Small Saphenous Vein * Proximal Calf Veins (* superficial vessels) Left Leg: Negative for DVT Grayscale, color doppler, spectral doppler imaging performed of the deep veins of the lower extremiti es. There is normal flow, compressibility, vascular waveforms. IMPRESSION: 1. No evidence for deep vein thrombosis of the left lower externally. 2. Subcutaneous changes edema.
[2023-01-24] MEDS ORDERED: ONDANSETRON 4 MG/2 ML VIAL IVP STA (01:09)
[2023-01-24] MEDS ORDERED: MORPHINE SULFATE 4 MG/ML SYRINGE IVP STA (01:10)
[2023-01-24] MEDS ORDERED: MORPHINE SULFATE 4 MG/ML SYRINGE IM STA (01:20)
[2023-01-24] MEDS ORDERED: ONDANSETRON ODT 4 MG TAB PO STA (01:20)
[2023-01-24 01:25] LABS: Basophils % (A) 0 %; Eosinophils # (A) 0.6 k/uL (0-0.7); Eosinophils % (A) 6 %; HCT 29.6 % (34.0-46.0); HGB 9.6 gm/dL (11.4-16.0); Lymphocytes # (A) 0.9 k/uL (1.0-4.8); Lymphocytes % (A) 9 %; MCH 31.4 pg (25.0-35.0); MCHC 32.4 g/dL (31.0-37.0); MCV 96.9 fL (80.0-100.0); Mean Platelet Volume 7.8; Monocytes # (A) 0.9 k/uL (0-1.0); Monocytes % (A) 8 %; Neutrophils # (A) 7.6 k/uL (1.3-7.7); Neutrophils % (A) 74 %; Platelet Count 228 k/uL (150-450); RBC 3.06 m/uL (3.80-5.40); RDW 14.9 % (11.5-15.5); WBC 10.2 k/uL (3.8-10.6)
--- NOTE | 2023-01-24 01:35 | XR ---
EXAMINATION TYPE: XR knee limited LT DATE OF EXAM: 01/24/2023 12:59 AM CLINICAL INDICATION:Female, 82 years old with history of pain, recent revision; [facility] COMPARISON: None. TECHNIQUE: XR knee limited LT; examined in Frontal, lateral and oblique projections. FINDINGS: Status post total knee arthroplasty changes with hardware in appropriate alignment and in tact. No evidence of fracture. There is soft tissue swelling around the knee. No simultaneous gas vis ualized. IMPRESSION: Status post total knee arthroplasty changes with hardware intact and appropriate alignment. No fractu res identified. No subcutaneous gas visualized. Soft tissue swelling is present.
[2023-01-24] MEDS ORDERED: ACETAMINOPHEN TAB 500 MG TAB PO STA (01:36)
--- NOTE | 2023-01-24 01:51 | ED ---
Extremity Problem HPI - General Chief complaint: Extremity Problem,Nontraumatic Stated complaint: knee pain Time Seen by Provider: 01/23/23 23:42 Source: family Mode of arrival: wheelchair Limitations: no limitations - History of Present Illness Initial comments: 82-year-old female presenting with chief complaint of knee pain and swelling. Patient reports that 5 days ago she had a right knee revision performed at [facility]. She states that she has noticed some increased swelling and is concerned for a blood clot. She also admits to nausea, she states that she is very sensitive to pain medication. No chest pain, difficulty breathing, numbness, tingling, palpitations, fever, chills. - Related Data Home Medications Medication Instructions Recorded Confirmed Albuterol Inhaler [Ventolin Hfa 1 - 2 puff INHALATION RT-Q6H PRN 05/09/18 10/09/22 Inhaler] NIFEdipine [NIFEdipine ER 30 mg PO QAM 05/09/18 10/09/22 (Osmotic)] Levothyroxine Sodium [Synthroid] 137 mcg PO DAILY 05/12/18 10/09/22 Albuterol Nebulized [Ventolin 2.5 mg INHALATION RT-Q4H PRN 05/13/18 10/09/22 Nebulized] Gabapentin 300 mg PO DAILY 10/09/22 10/09/22 Gabapentin 600 mg PO HS 10/09/22 10/09/22 Previous Rx's Medication Instructions Recorded Ondansetron Odt [Zofran Odt] 4 mg PO Q8HR PRN #20 tab 01/24/23 Allergies Allergy/AdvReac Type Severity Reaction Status Date / Time acetaminophen [From [place]] Allergy Nausea & Verified 01/23/23 23:09 Vomiting hydrocodone Allergy Nausea & Verified 01/23/23 23:09 Vomiting hydrocodone bitartrate Allergy Nausea & Verified 01/23/23 23:09 [From Vicodin] Vomiting Iodinated Contrast Media Allergy Nausea & Verified 01/23/23 23:09 [Iodinated Contrast- Oral Vomiting and IV Dye] hydromorphone [From Dilaudid] AdvReac Vomiting Verified 01/23/23 23:09 grass,mold,dust,cats,trees Allergy Unknown Uncoded 01/23/23 23:09 Review of Systems ROS Statement: Those systems with pertinent positive or pertinent negative responses have been documented in the HPI. ROS Other: All systems not noted in ROS Statement are negative. 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 History of Any Multi-Drug Resistant Organisms: None Reported Past Surgical History: Appendectomy, Hernia Repair, Hysterectomy, Joint Replacement, Orthopedic Surgery, Pacemaker, Tonsillectomy Additional Past Surgical History / Comment(s): LAPROSCOPIC LYSIS OF ADHESIONS WITH COLECTOMY, TTT, pacemaker, skin cancer removal L cheek/skin graft, ing uinal hernia repairs x3, BECCA total knee bilateral knee arthroscopies, partial thyroidectomy, pain clinic procedures (cervical), bilateral lasik eye surgery for vision correction. right shoulder replacement, bowel resection on 05/13/[address] Hutton rt hip replaced, Past Anesthesia/Blood Transfusion Reactions: No Reported Reaction Type of Cardiac Device: Permanent Pacemaker Device Placement Date:: 2015 Past Psychological History: No Psychological Hx Reported Smoking Status: Former smoker Past Alcohol Use History: None Reported Past Drug Use History: None Reported - Past Family History Son(s) Family Medical History: Cancer Additional Family Medical History / Comment(s): TESTICULAR CA IN SONS X2 Daughter(s) Family Medical History: Cancer Additional Family Medical History / Comment(s): OVARIAN CANCER Mother Family Medical History: Cancer Additional Family Medical History / Comment(s): STOMACH CANCER Father Family Medical History: No Reported History Additional Family Medical History / Comment(s): Father was healthy General Exam Limitations: no limitations General appearance: alert, in no apparent distress Head exam: Present: atraumatic, normocephalic, normal inspection Eye exam: Present: normal appearance, EOMI Neck exam: Present: normal inspection, full ROM Respiratory exam: Present: normal lung sounds bilaterally. Absent: respiratory distress, wheezes, rales, rhonchi, stridor Cardiovascular Exam: Present: regular rate, normal rhythm, normal heart sounds. Absent: systolic murmur, diastolic murmur, rubs, gallop, clicks Left Lower Leg exam: Present: tenderness, swelling (Consistent with postop). Absent: erythema Neurovascular tendon exam: Present: no vascular compromise Neurological exam: Present: alert, oriented X3 Psychiatric exam: Present: normal affect, normal mood Skin exam: Present: warm, dry, normal color, other (Incision looks well, no cellulitic changes). Absent: rash Course Vital Signs 01/23/23 01/24/23 23:07 02:49 Temperature 98.6 F Pulse Rate 79 82 Respiratory 18 16 Rate Blood Pressure 113/57 126/64 O2 Sat by Pulse 94 L 93 L Oximetry Medical Decision Making - Medical Decision Making Was pt. sent in by a medical professional or institution (, PA, SEMICONDUCTOR EQUIPMENT TECHNICIAN, urgent care, hospital, or fdc...) When possible be specific @ -No Did you speak to anyone other than the patient for history (EMS, parent, family, police, friend...)? What history was obtained from this source @ -No Did you review nursing and triage notes (agree or disagree)? Why? @ -I reviewed and agree with nursing and triage notes Were old charts reviewed (outside hosp., previous admission, EMS record, old EKG, old radiological studies, urgent care reports/EKG's, fdc records)? Report findings @ -No old charts were reviewed Differential Diagnosis (chest pain, altered mental status, abdominal pain women, abdominal pain men, vaginal bleeding, weakness, fever, dyspnea, syncope, headache, dizziness, GI bleed, back pain, seizure, CVA, palpatations, mental health, musculoskeletal)? @ -Differential Musculoskeletal Muscular strain, contusion, ligament sprain, fracture, arthritis, septic arthritis, bursitis, cellulitis, muscle spasm, nerve compression, DVT, arterial occlusion, herpes zoster, electrolyte abnormality, tumor.... This is not meant to be in all inclusive list EKG interpreted by me (3pts min.). @ -As above X-rays interpreted by me (1pt min.). @ -Status post total knee arthroplasty changes with hardware intact and appropriate alignment. No fractures identified. No subacute gas visualized. Soft tissue swelling is present. CT interpreted by me (1pt min.). @ -None done U/S interpreted by me (1pt. min.). @ -No evidence for DVT of the left lower extremity, subcutaneous changes edema What testing was considered but not performed or refused? (CT, X-rays, U/S, labs)? Why? @ -None What meds were considered but not given or refused? Why? @ -None Did you discuss the management of the patient with other professionals (professionals i.e. , PA, SEMICONDUCTOR EQUIPMENT TECHNICIAN, lab, RT, psych nurse, social media project manager, child monitor, teacher, housing management officer, case management coordinator)? Give summary @ -No Was smoking cessation discussed for >3mins.? @ -No Was critical care preformed (if so, how long)? @ -No Were there social determinants of health that impacted care today? How? (Homelessness, low income, unemployed, alcoholism, drug addiction, transportation, low edu. Level, literacy, decrease access to med. care, longterm, rehab)? @ -No Was there de-escalation of care discussed even if they declined (Discuss DNR or withdrawal of care, Hospice)? DNR status @ -No What co-morbidities impacted this encounter? (DM, HTN, Smoking, COPD, CAD, Cancer, CVA, ARF, Chemo, Hep., AIDS, mental health diagnosis, sleep apnea, morbid obesity)? @ -None Was patient admitted / discharged? Hospital course, mention meds given and route, prescriptions, significant lab abnormalities, going to OR and other pertinent info. @ -82-year-old female presenting with chief complaint of left-sided knee pain. She is status post revision 5 days. No fevers or chills. She does admit to s ome swelling. Lab work shows no leukocytosis. There is some mild transaminitis, likely due to recent anesthesia. Negative knee x-ray and ultrasound is negative for DVT. Patient is educated on today's findings. She is requesting to be discharged back home. She will follow up with her surgeon. Follow-up with PCP. Report back to ER with any new or worsening symptoms. Discussed return parameters and answered all questions. Patient conveyed verbal understanding and agreed to the plan. I discussed this case in detail with my attending Dr. Guerra Undiagnosed new problem with uncertain prognosis? @ -No Drug Therapy requiring intensive monitoring for toxicity (Heparin, Nitro, Insulin, Cardizem)? @ -No Were any procedures done? @ -No Diagnosis/symptom? @ -Postop pain Acute, or Chronic, or Acute on Chronic? @ -Acute Uncomplicated (without systemic symptoms) or Complicated (systemic symptoms)? @ -Uncomplicated Side effects of treatment? @ -No Exacerbation, Progression, or Severe Exacerbation? @ -No Poses a threat to life or bodily function? How? (Chest pain, [place], [place], pneumonia, PE, COPD, DKA, ARF, appy, cholecystitis, CVA, Diverticulitis, Homicidal, Suicidal, threat to staff... and all critical care pts) @ -No - Lab Data Result diagrams: 01/24/23 00:10 01/24/23 00:10 Lab Results 01/24/23 01/24/23 Range/Units 00:10 00:10 WBC 10.2 (3.8-10.6) k/uL RBC 3.06 L (3.80-5.40) m/uL Hgb 9.6 L (11.4-16.0) gm/dL Hct 29.6 L (34.0-46.0) % MCV 96.9 (80.0-100.0) fL MCH 31.4 (25.0-35.0) pg MCHC 32.4 (31.0-37.0) g/dL RDW 14.9 (11.5-15.5) % Plt Count 228 (150-450) k/uL MPV 7.8 Neutrophils % 74 % Lymphocytes % 9 % Monocytes % 8 % Eosinophils % 6 % Basophils % 0 % Neutrophils # 7.6 (1.3-7.7) k/uL Lymphocytes # 0.9 L (1.0-4.8) k/uL Monocytes # 0.9 (0-1.0) k/uL Eosinophils # 0.6 (0-0.7) k/uL Basophils # 0.0 (0-0.2) k/uL Sodium 136 L (137-145) mmol/L Potassium 4.6 (3.5-5.1) mmol/L Chloride 102 (98-107) mmol/L Carbon Dioxide 28 (22-30) mmol/L Anion Gap 6 mmol/L BUN 17 (7-17) mg/dL Creatinine 0.58 (0.52-1.04) mg/dL Est GFR (CKD-EPI)AfAm >90 (>60 ml/min/1.73 sqM) Est GFR (CKD-EPI)NonAf 86 (>60 ml/min/1.73 sqM) Glucose 87 (74-99) mg/dL Calcium 9.0 (8.4-10.2) mg/dL Total Bilirubin 1.3 (0.2-1.3) mg/dL AST 102 H (14-36) U/L ALT 90 H (4-34) U/L Alkaline Phosphatase 236 H (38-126) U/L Total Protein 5.9 L (6.3-8.2) g/dL Albumin 3.2 L (3.5-5.0) g/dL Disposition Clinical Impression: Post-op pain Disposition: HOME SELF-CARE Condition: Good Instructions (If sedation given, give patient instructions): Knee Pain (ED) Additional Instructions: Follow-up with PCP and surgeon. Report back to ER with any new or worsening symptoms. Prescriptions: Ondansetron Odt [Zofran Odt] 4 mg PO Q8HR PRN #20 tab PRN Reason: Nausea Is patient prescribed a controlled substance at d/c from ED?: No Referrals: Keila Young DO [Primary Care Provider] - 1-2 days Time of Disposition: 02:29
[2023-01-24 02:05] LABS: ALT 90 U/L (4-34); AST 102 U/L (14-36); African American GFR (CKD) >90 (>60 ml/min/1.73 sqM); Albumin 3.2 g/dL (3.5-5.0); Alkaline Phosphatase 236 U/L (38-126); Anion Gap 6 mmol/L; Blood Urea Nitrogen 17 mg/dL (7-17); Carbon Dioxide 28 mmol/L (22-30); Chloride 102 mmol/L (98-107); Glucose 87 mg/dL (74-99); Non-African American GFR(CKD) 86 (>60 ml/min/1.73 sqM); Potassium 4.6 mmol/L (3.5-5.1); Sodium 136 mmol/L (137-145); Total Bilirubin 1.3 mg/dL (0.2-1.3); Total Protein 5.9 g/dL (6.3-8.2)
[2023-01-24 02:52] VITALS: BP 126/64; PULSE 82; RESP 16
== END 2023-01-24 02:50 | disposition home or self-care (01) ==
LOC: EC 22:54
DX: G89.18 Other acute postprocedural pain (principal); R74.01 Elevation of levels of liver transaminase levels; J44.9 Chronic obstructive pulmonary disease, unspecified; E07.9 Disorder of thyroid, unspecified; Z79.890 Hormone replacement therapy; Z79.899 Other long term (current) drug therapy; Z88.5 Allergy status to narcotic agent; Z88.6 Allergy status to analgesic agent; Z91.09 Other allergy status, other than to drugs and biological substances; Z91.041 Radiographic dye allergy status; Z90.49 Acquired absence of other specified parts of digestive tract; Z87.891 Personal history of nicotine dependence
CPT/HCPCS: 36415; 80053; 85025; 99284

== ENCOUNTER → 2023-03-23 | Outpatient (CLI) | payer MEDICARE, BC ==
--- NOTE | 2023-03-23 18:38 | BD ---
EXAMINATION TYPE: Axial Bone Density DATE OF EXAM: 03/23/2023 CLINICAL HISTORY: 82 years old Female. ICD-10 CODE: Z78.0 PMENOPAUSAL STATE Height: 5 ft 9 in Weight: 170 FRAX RISK QUESTIONS: Alcohol (3 or more units per day): no Family History (Parent hip fracture): no Glucocorticoids (More than 3mos): no (Ex: prednisone, prednisolone, methylprednisolone, dexamethasone, and hydrocortisone). History of Fracture in Adulthood: yes Secondary Osteoporosis: 1. Type 1 Diabetes: no 2. Hyperthyroidism: no 3. Menopause before 45: no 4. Malnutrition: no 5. Chronic liver disease: no Rheumatoid Arthritis: no Current Tobacco Use: no RISK FACTORS HISTORY OF: Surgery to Spine/Hip(right/left)/Wrist (right/left): rt hip replacement When: 2019 Family History of Osteoporosis: no Active: yes Diet low in dairy products/other sources of calcium: no Postmenopausal woman: yes Take estrogen and/or progesterone medications: no Lost more than 2 inches in height since high school: yes Frequent falls: no Poor Health: good Hyperparathyroidism: no Adrenal Insufficiency: no MEDICATIONS: Thyroid Medications: yes Which medication: levothyroxine How Lon-12 years Additional Medications: blood pressure meds, levothyroxine, Additional History: EXAM MEASUREMENTS: Bone mineral densitometry was performed using the [employer] System. Bone mineral density as measured about the Lumbar spine is: ----- L1-L4(G/cm2): 1.638 T Score Values are as follows: ----- L1: 2.5 ----- L2: 1.6 ----- L3: 4.0 ----- L4: 6.1 ----- L1-L4: 3.8 Z Score Values are as follows: ----- L1: 4.0 ----- L2: 3.0 ----- L3: 5.5 ----- L4: 7.5 ----- L1-L4: 5.3 baseline Bone mineral density about the L hip (g/cm2): 1.112 T Score values are as follows: -----L Neck: 0.5 -----L Total: -0.2 Z Score values are as follows: -----L Neck: 2.5 -----L Total: 1.6 baseline FRAX%s: The graph provided illustrates a 11.3 % chance for a major osteoporotic fx and a 1.2 % chance for the hips probability for fx in 10 years time. IMPRESSION: Normal (Values between +1 and -1 indicate normal bone mass). Consider repeating this study in 5 year s or sooner if there is some new clinical indication. NOTE: T-SCORE=SD OF THE YOUNG ADULT MEAN.
== END | disposition home or self-care (01) ==
LOC: RADBDWWP 09:37
PROVIDERS: ATTEND Family Medicine
DX: M81.8 Other osteoporosis without current pathological fracture (principal); Z78.0 Asymptomatic menopausal state
CPT/HCPCS: 77080

== ENCOUNTER → 2023-03-23 | Outpatient (CLI) | payer MEDICARE, BC ==
--- NOTE | 2023-03-24 16:17 | MM ---
Reason for Exam: Screening (asymptomatic). Last mammogram was performed 1 year(s) and 7 month(s) ago. Patient History: Menarche at age 13. First Full-Term at age 19. Left ovary removed at age 34. Right ovary removed at age 34. Hysterectomy at age 34. Postmenopausal. Other cancer. Daughter had ovarian cancer, age 30. Risk Values: [place] 5 year model risk: 1.1%. NCI Lifetime model risk: 1.5%. Prior Study Comparison: 02/17/2018 Bilateral Screening Mammogram, [facility]. 06/21/2019 Bilateral Screening Mammogram, [facility]. 09/11/2021 Bilateral MG 3D screening mammo w/cad, [facility]. Tissue Density: There are scattered fibroglandular densities. Findings: Analyzed By CAD. Pattern appears symmetrical and stable. No significant interval change is evident. Pacemaker overlies left chest. Benign vascular calcifications within the right breast No suspicious groups of microcalcifications, spiculated or lobular masses, architectural distortion or other secondary signs of malignancy are mammographically apparent. Overall Assessment: Benign, BI-RAD 2 Management: Screening Mammogram of both breasts in 1 year. A negative mammogram report should not preclude additional follow up of suspicious palpable abnormalities. Patient should continue monthly self breast exam. A clinical breast exam by your physician is recommended on an annual basis and results should be correlated with mammographic findings. Electronically signed and approved by: Edwar Salguero D.O. Radiologis
== END | disposition home or self-care (01) ==
LOC: RADMAMWWP 09:29
PROVIDERS: ATTEND Family Medicine
DX: Z12.31 Encounter for screening mammogram for malignant neoplasm of breast (principal); Z78.0 Asymptomatic menopausal state; Z90.721 Acquired absence of ovaries, unilateral
CPT/HCPCS: 77063; 77067

== ENCOUNTER 2023-09-26 16:59 | Emergency (ER) | payer MEDICARE, BC ==
[2023-09-26 17:04] VITALS: TEMP 97.8
--- NOTE | 2023-09-26 17:36 | ED ---
Skin/Abscess/FB HPI - General Chief complaint: Skin/Abscess/Foreign Body Stated complaint: abcess on left leg Time Seen by Provider: 09/26/23 17:04 Source: patient, RN notes reviewed Mode of arrival: ambulatory Limitations: no limitations - History of Present Illness Initial comments: 82 year old female presents to the emergency department for evaluation of left leg wound. Patient states that one week ago she was scratched by her dog. She states that she was seen at her primary care providers office at that time and was provided Silvadene cream. She states that she has been applying this without improvement. She notes increased redness over the past 1-2 days. She took some left over Keflex yesterday and 2 pills today. She denies fever, chills, nausea, vomiting. She reports that she is otherwise feeling well. She is up to date on vaccinations. - Related Data Home Medications Medication Instructions Recorded Confirmed Albuterol Inhaler [Ventolin Hfa 1 - 2 puff INHALATION RT-Q6H PRN 05/09/18 10/09/22 Inhaler] NIFEdipine [NIFEdipine ER 30 mg PO QAM 05/09/18 10/09/22 (Osmotic)] Levothyroxine Sodium [Synthroid] 137 mcg PO DAILY 05/12/18 10/09/22 Albuterol Nebulized [Ventolin 2.5 mg INHALATION RT-Q4H PRN 05/13/18 10/09/22 Nebulized] Gabapentin 300 mg PO DAILY 10/09/22 10/09/22 Gabapentin 600 mg PO HS 10/09/22 10/09/22 Previous Rx's Medication Instructions Recorded Ondansetron Odt [Zofran Odt] 4 mg PO Q8HR PRN #20 tab 01/24/23 Cephalexin [Keflex] 500 mg PO Q6HR #40 cap 09/26/23 Sulfamethox-Tmp 800-160Mg [Bactrim 1 each PO Q12HR #20 tab 09/26/23 Ds] Allergies Allergy/AdvReac Type Severity Reaction Status Date / Time acetaminophen [From [place]] Allergy Nausea & Verified 09/26/23 17:03 Vomiting hydrocodone Allergy Nausea & Verified 09/26/23 17:03 Vomiting hydrocodone bitartrate Allergy Nausea & Verified 09/26/23 17:03 [From Vicodin] Vomiting Iodinated Contrast Media Allergy Nausea & Verified 09/26/23 17:03 [Iodinated Contrast- Oral Vomiting and IV Dye] hydromorphone [From Dilaudid] AdvReac Vomiting Verified 09/26/23 17:03 grass,mold,dust,cats,trees Allergy Unknown Uncoded 09/26/23 17:03 Review of Systems ROS Statement: Those systems with pertinent positive or pertinent negative responses have been documented in the HPI. ROS Other: All systems not noted in ROS Statement are negative. 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 History of Any Multi-Drug Resistant Organisms: None Reported Past Surgical History: Appendectomy, Hernia Repair, Hysterectomy, Joint Replacement, Orthopedic Surgery, Pacemaker, Tonsillectomy Additional Past Surgical History / Comment(s): LAPROSCOPIC LYSIS OF ADHESIONS WITH COLECTOMY, TTT, pacemaker, skin cancer removal L cheek/skin graft, inguinal hernia repairs x3, BECCA total knee bilateral knee arthroscopies, partial thyroidectomy, pain clinic procedures (cervical), bilateral lasik eye surgery for vision correction. right shoulder replacement, bowel resection on 05/13/[address] Hutton rt hip replaced, Past Anesthesia/Blood Transfusion Reactions: No Reported Reaction Type of Cardiac Device: Permanent Pacemaker Device Placement Date:: 2015 Past Psychological History: No Psychological Hx Reported Smoking Status: Current every day smoker Past Alcohol Use History: Occasional - Past Family History Son(s) Family Medical History: Cancer Additional Family Medical History / Comment(s): TESTICULAR CA IN SONS X2 Daughter(s) Family Medical History: Cancer Additional Family Medical History / Comment(s): OVARIAN CANCER Mother Family Medical History: Cancer Additional Family Medical History / Comment(s): STOMACH CANCER Father Family Medical History: No Reported History Additional Family Medical History / Comment(s): Father was healthy General Exam Limitations: no limitations General appearance: alert, in no apparent distress Head exam: Present: atraumatic, normocephalic, normal inspection Eye exam: Present: normal appearance, PERRL, EOMI. Absent: scleral icterus, conjunctival injection, periorbital swelling Neck exam: Present: normal inspection. Absent: tenderness, meningismus, lymphadenopathy Respiratory exam: Present: normal lung sounds bilaterally. Absent: respiratory distress, wheezes, rales, rhonchi, stridor Cardiovascular Exam: Present: regular rate, normal rhythm, normal heart sounds. Absent: systolic murmur, diastolic murmur, rubs, gallop, clicks Extremities exam: Present: full ROM, normal capillary refill, other (left lower extremity edema, abrasion with surrounding erythema and warmth). Absent: tenderness, pedal edema, joint swelling, calf tenderness Neurological exam: Present: alert, oriented X3 Psychiatric exam: Present: normal affect, normal mood Skin exam: Present: warm, dry, erythema, abrasion. Absent: intact, normal color Course Vital Signs 09/26/23 09/26/23 17:01 18:09 Temperature 97.8 F Pulse Rate 70 78 Respiratory 15 18 Rate Blood Pressure 157/88 110/78 O2 Sat by Pulse 96 99 Oximetry Medical Decision Making - Medical Decision Making Was pt. sent in by a medical professional or institution (, PA, CHAIR CAR DRIVER, urgent care, hospital, or group home...) When possible be specific @ -No Did you speak to anyone other than the patient for history (EMS, parent, family, police, friend...)? What history was obtained from this source @ -No Did you review nursing and triage notes (agree or disagree)? Why? @ -I reviewed and agree with nursing and triage notes Were old charts reviewed (outside hosp., previous admission, EMS record, old EKG, old radiological studies, urgent care reports/EKG's, group home records)? Report findings @ -No old charts were reviewed Differential Diagnosis (chest pain, altered mental status, abdominal pain women, abdominal pain men, vaginal bleeding, weakness, fever, dyspnea, syncope, headache, dizziness, GI bleed, back pain, seizure, CVA, palpatations, mental health, musculoskeletal)? @ -Cellulitis, abscess, abrasion, this list is not all inclusive EKG interpreted by me (3pts min.). @ -None X-rays interpreted by me (1pt min.). @ -None done CT interpreted by me (1pt min.). @ -None done U/S interpreted by me (1pt. min.). @ -None done What testing was considered but not performed or refused? (CT, X-rays, U/S, labs)? Why? @ -None What meds were considered but not given or refused? Why? @ -None Did you discuss the management of the patient with other professionals (professionals i.e. , PA, CHAIR CAR DRIVER, lab, RT, psych nurse, hospice social worker, web operations specialist, teacher, parole hearing officer, bilingual case manager)? Give summary @ -No Was smoking cessation discussed for >3mins.? @ -No Was critical care preformed (if so, how long)? @ -No Were there social determinants of health that impacted care today? How? (Homelessness, low income, unemployed, alcoholism, drug addiction, transportation, low edu. Level, literacy, decrease access to med. care, shelter, rehab)? @ -No Was there de-escalation of care discussed even if they declined (Discuss DNR or withdrawal of care, Hospice)? DNR status @ -No What co-morbidities impacted this encounter? (DM, HTN, Smoking, COPD, CAD, Cancer, CVA, ARF, Chemo, Hep., AIDS, mental health diagnosis, sleep apnea, morbid obesity)? @ -None Was patient admitted / discharged? Hospital course, mention meds given and route, prescriptions, significant lab abnormalities, going to OR and other pertinent info. @ -Discharged. Patient presented to the emergency department for evaluation of left leg wound. It has been present for around 1 week. She appears to have an abrasion to left leg with surrounding erythema and warmth. Patient will be started on PO antibiotics. Strict return precautions discussed. Patient understanding and agreeable with plan. Patient stable at time of discharge. Case discussed with Dr. Talbot. Undiagnosed new problem with uncertain prognosis? @ -No Drug Therapy requiring intensive monitoring for toxicity (Heparin, Nitro, Insulin, Cardizem)? @ -No Were any procedures done? @ -No Diagnosis/symptom? @ -Abrasion, cellulitis Acute, or Chronic, or Acute on Chronic? @ -Acute Uncomplicated (without systemic symptoms) or Complicated (systemic symptoms)? @ -Uncomplicated Side effects of treatment? @ -No Exacerbation, Progression, or Severe Exacerbation? @ -No Poses a threat to life or bodily function? How? (Chest pain, [place], [place], pneumonia, PE, COPD, DKA, ARF, appy, cholecystitis, CVA, Diverticulitis, Homicidal, Suicidal, threat to staff... and all critical care pts) @ -No Disposition Clinical Impression: Cellulitis Disposition: HOME SELF-CARE Condition: Stable Instructions (If sedation given, give patient instructions): Cellulitis (ED) Additional Instructions: Please follow up with your primary care provider. Return to the emergency department for new or worsening symptoms. Prescriptions: Sulfamethox-Tmp 800-160Mg [Bactrim Ds] 1 each PO Q12HR #20 tab Cephalexin [Keflex] 500 mg PO Q6HR #40 cap Is patient prescribed a controlled substance at d/c from ED?: No Referrals: Keila Young DO [Primary Care Provider] - 1-2 days
[2023-09-26] MEDS: cefTRIAXone 250 MG VIAL IM STA (18:06)
[2023-09-26 18:09] VITALS: BP 110/78; PULSE 78; RESP 18
== END 2023-09-26 18:10 | disposition home or self-care (01) ==
LOC: EC 16:59
DX: S80.812A Abrasion, left lower leg, initial encounter (principal); L03.116 Cellulitis of left lower limb; F17.200 Nicotine dependence, unspecified, uncomplicated; Z88.5 Allergy status to narcotic agent; Z88.6 Allergy status to analgesic agent; Z91.041 Radiographic dye allergy status; Z91.048 Other nonmedicinal substance allergy status; W54.8XXA Other contact with dog, initial encounter
CPT/HCPCS: 99283; 96372; J0696

== ENCOUNTER 2023-10-09 14:02 | Emergency (ER) | payer MEDICARE, BC ==
[2023-10-09 14:23] VITALS: RESP 18
--- NOTE | 2023-10-09 14:26 | ED ---
General Adult HPI - General Source: patient Mode of arrival: wheelchair Limitations: no limitations <Fahad Perez - Last Filed: 10/09/23 17:02> <Ann-Marie Ace - Last Filed: 10/09/23 17:16> - General Stated complaint: Fall-L knee pain Time Seen by Provider: 10/09/23 14:18 - History of Present Illness Initial comments: Dictation was produced using [employer] dictation software. please excuse any grammatical, word or spelling errors. Chief Complaint: 83-year-old female presents to the emergency department with left knee injury History of Present Illness: Patient is an 83-year-old female presents emergency department left knee injury. Patient has past medical history of neuropathy, thyroid disease. She does not take any anticoagulation medications. Patient states she tripped over a blanket landed on her left knee to the ground. Patient suffered a large laceration. She has a history of left knee replacement. The ROS documented in this emergency department record has been reviewed and confirmed by me. Those systems with pertinent positive or negative responses have been documented in the HPI. All other systems are other negative and/or noncontributory. (Fahad Perez) - Related Data Home Medications Medication Instructions Recorded Confirmed Albuterol Inhaler [Ventolin Hfa 1 - 2 puff INHALATION RT-Q6H PRN 05/09/18 10/09/22 Inhaler] NIFEdipine [NIFEdipine ER 30 mg PO QAM 05/09/18 10/09/22 (Osmotic)] Levothyroxine Sodium [Synthroid] 137 mcg PO DAILY 05/12/18 10/09/22 Albuterol Nebulized [Ventolin 2.5 mg INHALATION RT-Q4H PRN 05/13/18 10/09/22 Nebulized] Gabapentin 300 mg PO DAILY 10/09/22 10/09/22 Gabapentin 600 mg PO HS 10/09/22 10/09/22 Previous Rx's Medication Instructions Recorded Ondansetron Odt [Zofran Odt] 4 mg PO Q8HR PRN #20 tab 01/24/23 Cephalexin [Keflex] 500 mg PO Q6HR #40 cap 09/26/23 Sulfamethox-Tmp 800-160Mg [Bactrim 1 each PO Q12HR #20 tab 09/26/23 Ds] Cephalexin [Keflex] 500 mg PO Q6HR 5 Days #20 cap 10/09/23 Allergies Allergy/AdvReac Type Severity Reaction Status Date / Time acetaminophen [From [place]] Allergy Nausea & Verified 10/09/23 14:20 Vomiting hydrocodone Allergy Nausea & Verified 10/09/23 14:20 Vomiting hydrocodone bitartrate Allergy Nausea & Verified 10/09/23 14:20 [From Vicodin] Vomiting Iodinated Contrast Media Allergy Nausea & Verified 10/09/23 14:20 [Iodinated Contrast- Oral Vomiting and IV Dye] hydromorphone [From Dilaudid] AdvReac Vomiting Verified 10/09/23 14:20 grass,mold,dust,cats,trees Allergy Unknown Uncoded 10/09/23 14:20 Review of Systems ROS Other: All systems not noted in ROS Statement are negative. <Fahad Perez - Last Filed: 10/09/23 17:02> ROS Other: All systems not noted in ROS Statement are negative. <Ann-Marie Ace - Last Filed: 10/09/23 17:16> ROS Statement: Those systems with pertinent positive or pertinent negative responses have been documented in the HPI. 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 History of Any Multi-Drug Resistant Organisms: None Reported Past Surgical History: Appendectomy, Hernia Repair, Hysterectomy, Joint Replacement, Orthopedic Surgery, Pacemaker, Tonsillectomy Additional Past Surgical History / Comment(s): LAPROSCOPIC LYSIS OF ADHESIONS WITH COLECTOMY, TTT, pacemaker, skin cancer removal L cheek/skin graft, inguinal hernia repairs x3, BECCA total knee bilateral knee arthroscopies, partial thyroidectomy, pain clinic procedures (cervical), bilateral lasik eye surgery for vision correction. right shoulder replacement, bowel resection on 05/13/[address] Hutton rt hip replaced, Past Anesthesia/Blood Transfusion Reactions: No Reported Reaction Type of Cardiac Device: Permanent Pacemaker Device Placement Date:: 2015 Past Psychological History: No Psychological Hx Reported Smoking Status: Current every day smoker Past Alcohol Use History: Occasional - Past Family History Son(s) Family Medical History: Cancer Additional Family Medical History / Comment(s): TESTICULAR CA IN SONS X2 Daughter(s) Family Medical History: Cancer Additional Family Medical History / Comment(s): OVARIAN CANCER Mother Family Medical History: Cancer Additional Family Medical History / Comment(s): STOMACH CANCER Father Family Medical History: No Reported History Additional Family Medical History / Comment(s): Father was healthy <Fahad Perez - Last Filed: 10/09/23 17:02> General Exam Limitations: no limitations <Fahad Perez - Last Filed: 10/09/23 17:02> - General Exam Comments Initial Comments: General: Well-appearing, nontoxic, no acute distress. Head: Normocephalic, atraumatic Eyes: PERRLA, EOMI ENT: Airway patent Chest: Nonlabored breathing Skin: No visual rash, normal skin tone Neuro: Alert and oriented 3 Musculoskeletal: No gross abnormalities Left knee: 8 Centimeter laceration to the left anterior knee (Fahad Perez) Course Vital Signs 10/09/23 14:20 Temperature 98 F Pulse Rate 68 Respiratory 18 Rate Blood Pressure 134/64 O2 Sat by Pulse 94 L Oximetry Procedures - Laceration Laceration #1 Consent Obtained: verbal consent Indication: laceration Site: lower extremity Size (cm): 12 Description: linear Depth: simple, single layer Anesthetic Used: lidocaine 1%, with epi Amount (mls): 7 Pre-repair: wound explored, irrigated extensively Type of Sutures: nylon Size of Sutures: 3-0 Number of Sutures: 20 Technique: simple, interrupted Complications: pain Patient Tolerated Procedure: well, no complications <Ann-Marie Ace - Last Filed: 10/09/23 17:16> Medical Decision Making <Fahad Perez - Last Filed: 10/09/23 17:02> - Medical Decision Making Was pt. sent in by a medical professional or institution (, PA, VICE PRESIDENT OF DEVELOPMENT, urgent care, hospital, or custodial...) When possible be specific @ -No Did you speak to anyone other than the patient for history (EMS, parent, family, police, friend...)? What history was obtained from this source @ -No Did you review nursing and triage notes (agree or disagree)? Why? @ -I reviewed and agree with nursing and triage notes Were old charts reviewed (outside hosp., previous admission, EMS record, old EKG, old radiological studies, urgent care reports/EKG's, custodial records)? Report findings @ -No old charts were reviewed Differential Diagnosis (chest pain, altered mental status, abdominal pain women, abdominal pain men, vaginal bleeding, musculoskeletal, weakness, fever, dyspnea, syncope, headache, dizziness, GI bleed, back pain, seizure, CVA, palpatations, mental health)? @ -Knee fracture, knee laceration, patella fracture, tibial tuberosity fracture, tibial plateau fracture, distal femur fracture EKG interpreted by me (3pts min.). @ -None done X-rays interpreted by me (1pt min.). @ -Ordered, pending left knee x-ray CT interpreted by me (1pt min.). @ -None done U/S interpreted by me (1pt. min.). @ -None done What testing was considered but not performed or refused? (CT, X-rays, U/S, labs)? Why? @ -None What meds were considered but not given or refused? Why? @ -None Was smoking cessation discussed for >3mins.? @ -No Were there social determinants of health that impacted care today? How? (Homelessness, low income, unemployed, alcoholism, drug addiction, transportation, low edu. Level, literacy, decrease access to med. care, correction, rehab)? @ -No Was there de-escalation of care discussed even if they declined (Discuss DNR or withdrawal of care, Hospice)? DNR status @ -No What co-morbidities impacted this encounter? (DM, HTN, Smoking, COPD, CAD, Cancer, CVA, ARF, Chemo, Hep., AIDS, mental health diagnosis, sleep apnea, morbid obesity)? @ -None Was patient admitted / discharged? Hospital course, mention meds given and route, prescriptions, significant lab abnormalities, going to OR and other pertinent info. @ -83-year-old female presents to the emergency department for left knee injury left knee laceration. Patient had a mechanical fall after tripping over a blanket. She does not take anticoagulation medications. Denies any head injury. Denies any headache. Vital signs stable. X-rays unremarkable. La ceration was repaired by physician traffic assistant. Patient's tetanus was updated. Patient will be given prophylactic antibiotics. Patient discharged. Did you discuss the management of the patient with other professionals (professionals i.e. , PA, VICE PRESIDENT OF DEVELOPMENT, lab, RT, psych nurse, dialysis social worker, mechanic, teacher, chief lifestyle officer, patient case manager)? Give summary @ -No Was critical care preformed (if so, how long)? @ -No Undiagnosed new problem with uncertain prognosis? @ -No Drug Therapy requiring intensive monitoring for toxicity (Heparin, Nitro, Insulin, Cardizem)? @ -No Were any procedures done? @ -Please see procedure note for laceration repair details Diagnosis/symptom? Acute, or Chronic, or Acute on Chronic? Uncomplicated (without systemic symptoms) or Complicated (systemic symptoms)? @ -Left knee patient with laceration Side effects of treatment? @ -No Exacerbation, Progression, or Severe Exacerbation? @ -No Poses a threat to life or bodily function? How? (Chest pain, [place], NM, pneumonia, PE, COPD, DKA, ARF, appy, cholecystitis, CVA, Diverticulitis, Homicidal, Suicidal, threat to staff... and all critical care pts) @ -No (Fahad Perez) Disposition Is patient prescribed a controlled substance at d/c from ED?: No Time of Disposition: 16:55 <Fahad Perez - Last Filed: 10/09/23 17:02> <Ann-Marie Ace - Last Filed: 10/09/23 17:16> Clinical Impression: Laceration Disposition: HOME SELF-CARE Condition: Fair Instructions (If sedation given, give patient instructions): Laceration (DC) Additional Instructions: suture removal in 10-14 days Prescriptions: Cephalexin [Keflex] 500 mg PO Q6HR 5 Days #20 cap Referrals: Keila Young DO [Primary Care Provider] - 1-2 days
--- NOTE | 2023-10-09 14:51 | XR ---
EXAMINATION TYPE: XR knee complete LT DATE OF EXAM: 10/09/2023 CLINICAL HISTORY: pain TECHNIQUE: Three views of the left knee are obtained. COMPARISON: 01/24/2023 FINDINGS: There is no acute fracture/dislocation. The epiglottis appears unchanged in overall appear ance and appears well seated. The overlying soft tissue appears unremarkable. IMPRESSION: There is no acute fracture or dislocation ICD 10 NO FRACTURE, INITIAL EVALUATION
[2023-10-09] MEDS: LIDOCAINE 2%-EPI 1:100,000 20 ML VIAL SQ STA (15:36)
[2023-10-09] MEDS: DIPH,PERTUS(ACELL)TETVAC-LF 0.5 ML VIAL IM ONE (17:14)
[2023-10-09 17:23] VITALS: BP 156/73; PULSE 59; TEMP 98.1
== END 2023-10-09 17:27 | disposition home or self-care (01) ==
LOC: EC 14:02
DX: S81.012A Laceration without foreign body, left knee, initial encounter (principal); F17.200 Nicotine dependence, unspecified, uncomplicated; Z23 Encounter for immunization; Z88.8 Allergy status to other drugs, medicaments and biological substances; W01.0XXA Fall on same level from slipping, tripping and stumbling without subsequent striking against object, initial encounter
CPT/HCPCS: 12004; 90471; 90715; 99283

== ENCOUNTER → 2024-05-23 | Outpatient (CLI) | payer MEDICARE, BC ==
--- NOTE | 2024-05-23 11:11 | MM ---
Reason for Exam: Screening (asymptomatic). Last mammogram was performed 1 year(s) and 2 month(s) ago. Patient History: Menarche at age 13. First Full-Term at age 19. Left ovary removed at age 34. Right ovary removed at age 34. Hysterectomy at age 34. Postmenopausal. Other cancer. Daughter had ovarian cancer, age 30. Risk Values: Christiana 5 year model risk: 1.1%. NCI Lifetime model risk: 1.3%. Prior Study Comparison: 06/21/2019 Bilateral Screening Mammogram, [facility]. 09/11/2021 Bilateral MG 3D screening mammo w/cad, [facility]. 03/23/2023 Bilateral MG 3D screening mammo w/cad, [facility]. Tissue Density: There are scattered areas of fibroglandular density. Findings: Analyzed By CAD. Left axillary pacemaker-type device is partially imaged. There are benign-appearing vascular calcifications right breast demonstrated. There is no suspicious new group of microcalcifications or new suspicious mass in either breast. Overall Assessment: Benign, BI-RAD 2 Management: Screening Mammogram of both breasts in 1 year. . Patient should continue monthly self-breast exams. A clinical breast exam by your physician is recommended on an annual basis. This exam should not preclude additional follow-up of suspicious palpable abnormalities. Note on Christiana scores and lifetime risk: 1. A Christiana score greater than 3% is considered moderate risk. If this is the case, consider specialist referral to assess eligibility for a risk reducing agent. 2. If overall lifetime risk for the development of breast cancer is 20% or higher, the patient may qualify for future screening with alternating mammogram and breast MRI. [facility], , 05/23/2024 11:08 AM. Electronically signed and approved by: Kodak Galvin M.D.
== END | disposition home or self-care (01) ==
LOC: RADMAMWWP 10:29
PROVIDERS: ATTEND Family Medicine
DX: Z12.31 Encounter for screening mammogram for malignant neoplasm of breast (principal); R92.323 Mammographic fibroglandular density, bilateral breasts; R92.1 Mammographic calcification found on diagnostic imaging of breast; Z78.0 Asymptomatic menopausal state
CPT/HCPCS: 77063; 77067

== ENCOUNTER 2024-06-10 16:28 | Inpatient (IN) | payer MEDICARE, BC ==
--- NOTE | 2024-06-10 16:49 | ED ---
SOB HPI - General Chief Complaint: Shortness of Breath Stated Complaint: MAUREEN Time Seen by Provider: 06/10/24 16:46 Source: patient, RN notes reviewed, old records reviewed Mode of arrival: wheelchair Limitations: no limitations - History of Present Illness Initial Comments: This is an 83-year-old female to the ER for evaluation of underlying difficulty breathing. Patient does have COPD does have home O2 and does do breathing treatments at home with no help the last few days. No fevers no chest pain. Patient states she wore her oxygen last night and has never had to wear it before since she was given it. She usually does a breathing treatment which resolves her difficulty breathing, patient's oxygenation got worse today she was checking at home in the low 70s when she got in the car to come to the hospital, patient still severely short of breath here in the ER MD Complaint: shortness of breath, cough, "asthma attack" -: days(s) Severity: severe Severity scale (1-10): 10 Quality: aching Consistency: constant Improves With: rest Worsens With: exertion, movement, coughing Known History Of: COPD, asthma Context: recent URI, recent illness Associated Symptoms: cough, sputum production Treatments Prior to Arrival: none - Related Data Home Medications Medication Instructions Recorded Confirmed Albuterol Inhaler [Ventolin Hfa 2 puff INHALATION RT-Q4H PRN 05/09/18 06/10/24 Inhaler] Gabapentin 300 mg PO QID PRN 10/09/22 06/10/24 Fluticasone/Umeclidin/Vilanter 1 puff INHALATION RT-DAILY 06/10/24 06/12/24 [Trelegy Ellipta 200-62.5-25] Gabapentin [Neurontin] 100 mg PO DAILY PRN 06/10/24 06/10/24 Levothyroxine Sodium [Synthroid] 125 mcg PO DAILY 06/10/24 06/10/24 Losartan Potassium 100 mg PO DAILY 06/10/24 06/10/24 NIFEdipine XL [Procardia XL] 90 mg PO DAILY 06/10/24 06/10/24 methylPREDNISolone Dose Pack See Taper PO DIRECTED 06/10/24 06/10/24 [Medrol Dose Pack] Previous Rx's Medication Instructions Recorded Acetaminophen Tab [Tylenol] 325 mg PO Q6HR PRN #60 tab 06/15/24 Acetaminophen-Codeine 300-30mg 1 each PO Q6HR PRN 7 Days #25 tab 06/15/24 [Tylenol w/codeine #3] Benzonatate [Tessalon Perles] 200 mg PO TID PRN 7 Days #21 cap 06/15/24 Docusate [Colace] 100 mg PO BID #60 cap 06/15/24 Lactulose [Cephulac] 30 gm PO BID PRN 7 Days #300 ml 06/15/24 Lidocaine 4% Cream [Lmx 4] 1 applic TOPICAL ONCE 7 Days #7 06/15/24 each Pantoprazole [Protonix] 40 mg PO AC-BID #60 tab 06/15/24 guaiFENesin-DM 600/30MG [Mucinex 1 each PO Q12HR PRN 7 Days #14 tab 06/15/24 Dm] methocarbamoL [Robaxin] 500 mg PO QID 10 Days #40 tab 06/15/24 predniSONE 10 mg PO DIRECTED #24 tab 06/15/24 Allergies Allergy/AdvReac Type Severity Reaction Status Date / Time acetaminophen [From [place]] Allergy Nausea & Verified 06/10/24 17:27 Vomiting hydrocodone Allergy Nausea & Verified 06/10/24 17:27 Vomiting hydrocodone bitartrate Allergy Nausea & Verified 06/10/24 17:27 [From Vicodin] Vomiting Iodinated Contrast Media Allergy Nausea & Verified 06/10/24 17:27 [Iodinated Contrast- Oral Vomiting and IV Dye] hydromorphone [From Dilaudid] AdvReac Vomiting Verified 06/10/24 17:27 grass,mold,dust,cats,trees Allergy Unknown Uncoded 10/09/23 14:20 Review of Systems ROS Statement: Those systems with pertinent positive or pertinent negative responses have been documented in the HPI. ROS Other: All systems not noted in ROS Statement are negative. 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 History of Any Multi-Drug Resistant Organisms: None Reported Past Surgical History: Appendectomy, Hernia Repair, Hysterectomy, Joint Replacement, Orthopedic Surgery, Pacemaker, Tonsillectomy Additional Past Surgical History / Comment(s): LAPROSCOPIC LYSIS OF ADHESIONS WITH COLECTOMY, TTT, pacemaker, skin cancer removal L cheek/skin graft, inguinal hernia repairs x3, BECCA total knee bilateral knee arthroscopies, partial thyroidectomy, pain clinic procedures (cervical), bilateral lasik eye surgery for vision correction. right shoulder replacement, bowel resection on 05/13/[address] Hutton rt hip replaced, Past Anesthesia/Blood Transfusion Reactions: No Reported Reaction Type of Cardiac Device: Permanent Pacemaker Device Placement Date:: 2015 Past Psychological History: No Psychological Hx Reported Smoking Status: Current every day smoker Past Alcohol Use History: Occasional - Past Family History Son(s) Family Medical History: Cancer Additional Family Medical History / Comment(s): TESTICULAR CA IN SONS X2 Daughter(s) Family Medical History: Cancer Additional Family Medical History / Comment(s): OVARIAN CANCER Mother Family Medical History: Cancer Additional Family Medical History / Comment(s): STOMACH CANCER Father Family Medical History: No Reported History Additional Family Medical History / Comment(s): Father was healthy General Exam Limitations: no limitations General appearance: alert, anxious, in distress Head exam: Present: atraumatic, normocephalic, normal inspection Eye exam: Present: normal appearance, PERRL, EOMI. Absent: scleral icterus, conjunctival injection, periorbital swelling ENT exam: Present: normal exam, mucous membranes moist Neck exam: Present: normal inspection. Absent: tenderness, meningismus, lymphadenopathy Respiratory exam: Present: respiratory distress, wheezes, accessory muscle use, decreased breath sounds, prolonged expiratory. Absent: rales, rhonchi, stridor Cardiovascular Exam: Present: regular rate, normal rhythm, normal heart sounds. Absent: systolic murmur, diastolic murmur, rubs, gallop, clicks GI/Abdominal exam: Present: soft, normal bowel sounds. Absent: distended, tenderness, guarding, rebound, rigid Extremities exam: Present: normal inspection, full ROM, normal capillary refill. Absent: tenderness, pedal edema, joint swelling, calf tenderness Back exam: Present: normal inspection Neurological exam: Present: alert, oriented X3, CN II-XII intact Psychiatric exam: Present: normal affect, normal mood Skin exam: Present: warm, dry, intact, normal color. Absent: rash Course Vital Signs 06/10/24 06/10/24 06/10/24 16:41 17:26 18:16 Temperature 97.5 F L 97.9 F Pulse Rate 88 91 101 H Respiratory 18 16 22 Rate Blood Pressure 112/80 107/71 O2 Sat by Pulse 86 L 92 L Oximetry 06/10/24 18:25 Temperature Pulse Rate 85 Respiratory 18 Rate Blood Pressure O2 Sat by Pulse Oximetry - Reevaluation(s) Reevaluation #1: 06/10/24 17:01 Medical records reviewed No prior ER visits for difficulty breathing, no prior hospitalizations for COPD Reevaluation #2: 06/10/24 17:01 Oxygenation is improved once placed on supplemental O2 initial pulse ox 82%, now 93 Patient continues to improve even further on breathing treatment patient denies chest pain Reevaluation #3: 06/10/24 18:10 Patient informed of results questions answered Reevaluation #4: Was pt. sent in by a medical professional or institution (, PA, TRAVELING FREIGHT AGENT, urgent care, hospital, or custodial...) When possible be specific @ -no Did you speak to anyone other than the patient for history (EMS, parent, family, police, friend...)? What history was obtained from this source @ -no Did you review nursing and triage notes (agree or disagree)? Why? @ -agree Are old charts reviewed (outside hosp., previous admission, EMS record, old EKG, old radiological studies, urgent care reports/EKG's, custodial records)? Report findings @ -yes Differential Diagnosis (chest pain, altered mental status, abdominal pain women, abdominal pain men, vaginal bleeding, weakness, fever, dyspnea, syncope, hea dache, dizziness, GI bleed, back pain, seizure, CVA, palpatations, mental health, musculoskeletal)? @ -prior EKG interpreted by me (3pts min.). @ -yes X-rays interpreted by me (1pt min.). @ -yes positive for pneumonia CT interpreted by me (1pt min.). @ -no U/S interpreted by me (1pt. min.). @ -no What testing was considered but not performed or refused? (CT, X-rays, U/S, labs)? Why? @ -none What meds were considered but not given or refused? Why? @ -none Did you discuss the management of the patient with other professionals (professionals i.e. , PA, TRAVELING FREIGHT AGENT, lab, RT, psych nurse, social media intern, registered dietitian, teacher, admitting officer, manager case management)? Give summary @ -no Was smoking cessation discussed for >3mins.? @ -no Was critical care preformed (if so, how long)? @ -yes31 Were there social determinants of health that impacted care today? How? (Homelessness, low income, unemployed, alcoholism, drug addiction, transportation, low edu. Level, literacy, decrease access to med. care, [place] [facility], rehab)? @ -none Was there de-escalation of care discussed even if they declined (Discuss DNR or withdrawal of care, Hospice)? DNR status @ -no What co-morbidities impacted this encounter? (DM, HTN, Smoking, COPD, CAD, Cancer, CVA, ARF, Chemo, Hep., AIDS, mental health diagnosis, sleep apnea, mor bid obesity)? @ -none Was patient admitted / discharged? Hospital course, mention meds given and ro qawalangin, prescriptions, significant lab abnormalities, going to OR and other pertinent info. @ - 83 female to ER for evaluation of shortness of breath with hypoxia underlying history of COPD with asthma on home O2 occasionally, patient is positive for RSV positive for CHF and will admit for multifactorial hypoxia including CHF COPD concurrent with RSV infection Admitted Undiagnosed new problem with uncertain prognosis? @ -no Drug Therapy requiring intensive monitoring for toxicity (Heparin, Nitro, Insulin, Cardizem)? @ -no Were any procedures done? @ -no Diagnosis/sym-ptom? @ -Hypoxia RSV pneumonia Acute, or Chronic, or Acute on Chronic? @ -Acute Uncomplicated (without systemic symptoms) or Complicated (systemic symptoms)? @ -Complicated Side effects of treatment? @ -no Exacerbation, Progression, or Severe Exacerbation? @ -exacerbation Poses a threat to life or bodily function? How? (Chest pain, USA, ID, pneumonia, PE, COPD, DKA, ARF, appy, cholecystitis, CVA, Diverticulitis, Homicidal, Suicidal, threat to staff... and all critical care pts) @ -yes respiratory failure Reevaluation #5: Differential Dyspnea: Coronary syndrome, arrhythmia, tamponade, asthma, COPD, pulmonary embolism, pneumonia, pneumothorax, pulmonary effusion, anaphylaxis, diabetic ketoacidosis, flailed chest, pulmonary contusion, diaphragmatic rupture, anemia, neuromuscular, this is not meant to be an all-inclusive list. - Consultations Consultation #1: Spoke with [facility] who agrees to admit this patient Medical Decision Making - Medical Decision Making 83 female to ER for evaluation of shortness of breath with hypoxia underlying history of COPD with asthma on home O2 occasionally, patient is positive for RSV positive for CHF and will admit for multifactorial hypoxia including CHF COPD concurrent with RSV infection - Lab Data Result diagrams: 06/18/24 05:35 06/18/24 05:35 Lab Results 06/10/24 06/10/24 06/10/24 Range/Units 16:53 16:53 16:53 WBC 11.7 H (3.8-10.6) k/uL RBC 3.97 (3.80-5.40) m/uL Hgb 12.1 (11.4-16.0) gm/dL Hct 38.1 (34.0-46.0) % MCV 96.0 (80.0-100.0) fL MCH 30.5 (25.0-35.0) pg MCHC 31.8 (31.0-37.0) g/dL RDW 15.3 (11.5-15.5) % Plt Count 286 (150-450) k/uL MPV 8.0 Neutrophils % 81 % Lymphocytes % 6 % Monocytes % 11 % Eosinophils % 1 % Basophils % 0 % Neutrophils # 9.4 H (1.3-7.7) k/uL Lymphocytes # 0.7 L (1.0-4.8) k/uL Monocytes # 1.3 H (0-1.0) k/uL Eosinophils # 0.1 (0-0.7) k/uL Basophils # 0.0 (0-0.2) k/uL PT 10.8 (10.0-12.5) sec INR 1.0 (<1.2) APTT 21.5 L (22.0-30.0) sec Sodium 134 L (137-145) mmol/L Potassium 4.4 (3.5-5.1) mmol/L Chloride 100 (98-107) mmol/L Carbon Dioxide 25 (22-30) mmol/L Anion Gap 9 mmol/L BUN 23 H (7-17) mg/dL Creatinine 0.80 (0.52-1.04) mg/dL Est GFR (CKD-EPI)AfAm 79 (>60 ml/min/1.73 sqM) Est GFR (CKD-EPI)NonAf 69 (>60 ml/min/1.73 sqM) Glucose 113 H (74-99) mg/dL Lactic Ac Sepsis Rflx Plasma Lactic Acid Bryn (0.7-2.0) mmol/L Calcium 9.9 (8.4-10.2) mg/dL Magnesium 2.3 (1.6-2.3) mg/dL Total Bilirubin 0.6 (0.2-1.3) mg/dL AST 28 (14-36) U/L ALT 23 (4-34) U/L Alkaline Phosphatase 71 (38-126) U/L Troponin I (0.000-0.034) ng/mL NT-Pro-B Natriuret Pep 735 pg/mL Total Protein 7.0 (6.3-8.2) g/dL Albumin 4.3 (3.5-5.0) g/dL Influenza Type A (PCR) (Not Detectd) Influenza Type B (PCR) (Not Detectd) RSV (PCR) (Not Detectd) SARS-CoV-2 (PCR) (Not Detectd) 06/10/24 06/10/24 06/10/24 Range/Units 16:53 16:53 16:53 WBC (3.8-10.6) k/uL RBC (3.80-5.40) m/uL Hgb (11.4-16.0) gm/dL Hct (34.0-46.0) % MCV (80.0-100.0) fL MCH (25.0-35.0) pg MCHC (31.0-37.0) g/dL RDW (11.5-15.5) % Plt Count (150-450) k/uL MPV Neutrophils % % Lymphocytes % % Monocytes % % Eosinophils % % Basophils % % Neutrophils # (1.3-7.7) k/uL Lymphocytes # (1.0-4.8) k/uL Monocytes # (0-1.0) k/uL Eosinophils # (0-0.7) k/uL Basophils # (0-0.2) k/uL PT (10.0-12.5) sec INR (<1.2) APTT (22.0-30.0) sec Sodium (137-145) mmol/L Potassium (3.5-5.1) mmol/L Chloride (98-107) mmol/L Carbon Dioxide (22-30) mmol/L Anion Gap mmol/L BUN (7-17) mg/dL Creatinine (0.52-1.04) mg/dL Est GFR (CKD-EPI)AfAm (>60 ml/min/1.73 sqM) Est GFR (CKD-EPI)NonAf (>60 ml/min/1.73 sqM) Glucose (74-99) mg/dL Lactic Ac Sepsis Rflx Plasma Lactic Acid Bryn 2.1 H* (0.7-2.0) mmol/L Calcium (8.4-10.2) mg/dL Magnesium (1.6-2.3) mg/dL Total Bilirubin (0.2-1.3) mg/dL AST (14-36) U/L ALT (4-34) U/L Alkaline Phosphatase (38-126) U/L Troponin I 0.026 (0.000-0.034) ng/mL NT-Pro-B Natriuret Pep pg/mL Total Protein (6.3-8.2) g/dL Albumin (3.5-5.0) g/dL Influenza Type A (PCR) Not Detected (Not Detectd) Influenza Type B (PCR) Not Detected (Not Detectd) RSV (PCR) Detected A (Not Detectd) SARS-CoV-2 (PCR) Not Detected (Not Detectd) 06/10/24 Range/Units 17:36 WBC (3.8-10.6) k/uL RBC (3.80-5.40) m/uL Hgb (11.4-16.0) gm/dL Hct (34.0-46.0) % MCV (80.0-100.0) fL MCH (25.0-35.0) pg MCHC (31.0-37.0) g/dL RDW (11.5-15.5) % Plt Count (150-450) k/uL MPV Neutrophils % % Lymphocytes % % Monocytes % % Eosinophils % % Basophils % % Neutrophils # (1.3-7.7) k/uL Lymphocytes # (1.0-4.8) k/uL Monocytes # (0-1.0) k/uL Eosinophils # (0-0.7) k/uL Basophils # (0-0.2) k/uL PT (10.0-12.5) sec INR (<1.2) APTT (22.0-30.0) sec Sodium (137-145) mmol/L Potassium (3.5-5.1) mmol/L Chloride (98-107) mmol/L Carbon Dioxide (22-30) mmol/L Anion Gap mmol/L BUN (7-17) mg/dL Creatinine (0.52-1.04) mg/dL Est GFR (CKD-EPI)AfAm (>60 ml/min/1.73 sqM) Est GFR (CKD-EPI)NonAf (>60 ml/min/1.73 sqM) Glucose (74-99) mg/dL Lactic Ac Sepsis Rflx Y Plasma Lactic Acid Bryn (0.7-2.0) mmol/L Calcium (8.4-10.2) mg/dL Magnesium (1.6-2.3) mg/dL Total Bilirubin (0.2-1.3) mg/dL AST (14-36) U/L ALT (4-34) U/L Alkaline Phosphatase (38-126) U/L Troponin I (0.000-0.034) ng/mL NT-Pro-B Natriuret Pep pg/mL Total Protein (6.3-8.2) g/dL Albumin (3.5-5.0) g/dL Influenza Type A (PCR) (Not Detectd) Influenza Type B (PCR) (Not Detectd) RSV (PCR) (Not Detectd) SARS-CoV-2 (PCR) (Not Detectd) - EKG Data -: EKG Interpreted by Me (EKG is sinus 88 SD 200 QRS 100 QTc 385) - Radiology Data Radiology results: report reviewed (Chest x-ray is positive for CHF), image reviewed Critical Care Time Critical Care Time: Yes Total Critical Care Time: 31 Disposition Clinical Impression: Acute exacerbation of chronic obstructive pulmonary disease, Acute respiratory distress syndrome in adult, Hypoxia, RSV bronchiolitis, Congestive heart failure, Acute pulmonary edema Disposition: ADMITTED IP TO THIS HOSP Condition: Serious Is patient prescribed a controlled substance at d/c from ED?: No Time of Disposition: 18:00
[2024-06-10 17:15] LABS: Basophils % (A) 0 %; Eosinophils # (A) 0.1 k/uL (0-0.7); Eosinophils % (A) 1 %; HCT 38.1 % (34.0-46.0); HGB 12.1 gm/dL (11.4-16.0); Lymphocytes # (A) 0.7 k/uL (1.0-4.8); Lymphocytes % (A) 6 %; MCH 30.5 pg (25.0-35.0); MCHC 31.8 g/dL (31.0-37.0); Monocytes # (A) 1.3 k/uL (0-1.0); Monocytes % (A) 11 %; Neutrophils # (A) 9.4 k/uL (1.3-7.7); Neutrophils % (A) 81 %; Platelet Count 286 k/uL (150-450); RBC 3.97 m/uL (3.80-5.40); RDW 15.3 % (11.5-15.5); WBC 11.7 k/uL (3.8-10.6)
[2024-06-10] MEDS: methylPREDNISolone SOD SUCCI 125 MG/2 ML VIAL IV STA (17:24)
[2024-06-10 17:27] LABS: ALT 23 U/L (4-34); AST 28 U/L (14-36); African American GFR (CKD) 79 (>60 ml/min/1.73 sqM); Albumin 4.3 g/dL (3.5-5.0); Alkaline Phosphatase 71 U/L (38-126); Anion Gap 9 mmol/L; Blood Urea Nitrogen 23 mg/dL (7-17); Calcium 9.9 mg/dL (8.4-10.2); Carbon Dioxide 25 mmol/L (22-30); Chloride 100 mmol/L (98-107); Glucose 113 mg/dL (74-99); Magnesium 2.3 mg/dL (1.6-2.3); Non-African American GFR(CKD) 69 (>60 ml/min/1.73 sqM); Potassium 4.4 mmol/L (3.5-5.1); Sodium 134 mmol/L (137-145); Total Bilirubin 0.6 mg/dL (0.2-1.3)
[2024-06-10 17:32] LABS: Partial Thromboplastin Time 21.5 sec (22.0-30.0); Prothrombin Time 10.8 sec (10.0-12.5)
[2024-06-10 17:36] LABS: NT-Pro-B-Type Natriuretic Pept 735 pg/mL
[2024-06-10] MEDS: SODIUM CHLORIDE 0.9% 1,000 ML IV STA (17:36)
--- NOTE | 2024-06-10 17:45 | XR ---
EXAMINATION TYPE: XR chest 2V DATE OF EXAM: 06/10/2024 5:39 PM COMPARISON: Chest radiographs from 04/04/2021 CLINICAL INDICATION: Female, 83 years old with history of difficulty breathing; TECHNIQUE: XR chest 2V Frontal and lateral views of the chest. FINDINGS: Lungs/Pleura: There is no evidence of pleural effusion, focal consolidation, or pneumothorax. Pulmonary vascularity: Pulmonary vascular congestion. Heart/mediastinum: Cardiomediastinal silhouette is unremarkable. Atherosclerotic calcifications are seen in the aorta. Two lead cardiac conduction device overlying the left hemithorax with lead tips pr ojecting over the right ventricle and right atrium. Musculoskeletal: Multiple level degenerative disc disease changes seen throughout the spine. Other findings: None IMPRESSION: Cardiomegaly and mild pulmonary vascular congestion. Correlate with BNP for congestive heart failure. [facility], , 06/10/2024 5:43 PM
[2024-06-10 18:02] LABS: Influenza A Not Detected (Not Detectd); Influenza B Not Detected (Not Detectd); RSV Detected (Not Detectd)
[2024-06-10] MEDS ORDERED: MORPHINE SULFATE 4 MG/ML SYRINGE IV PRN (18:06)
[2024-06-10] MEDS ORDERED: NALOXONE 0.4 MG/ML 1 ML VIAL IV PRN (18:06)
[2024-06-10] MEDS ORDERED: NALOXONE 0.4 MG/ML 1 ML VIAL IVP PRN (18:06)
[2024-06-10] MEDS ORDERED: ALBUTEROL NEBULIZED 2.5 MG/3 ML INHALATION PRN (18:09)
[2024-06-10] MEDS: IPRATROPIUM-ALBUTEROL 3 ML NEB INHALATION STA ×2 (18:13)
[2024-06-10 20:41] LABS: Glucose,Whole Blood 141 mg/dL (70-110)
[2024-06-10] MEDS: FUROSEMIDE 10 MG/ML 4 ML VIAL IV SCH (20:52)
[2024-06-10] MEDS: ALBUTEROL NEBULIZED 2.5 MG/3 ML INHALATION PRN (20:52)
[2024-06-10] MEDS ORDERED: GABAPENTIN 100 MG CAP PO PRN (21:08)
[2024-06-10] MEDS ORDERED: guaiFENesin-DM 600/30MG 1 EACH TAB.ER.12H PO PRN (21:08)
[2024-06-10] MEDS: ACETAMINOPHEN TAB 325 MG TAB PO STA (21:15)
[2024-06-10] MEDS: guaiFENesin-DM 100-10MG/5ML 10 ML CUP PO PRN (21:25)
[2024-06-10] MEDS: GABAPENTIN 300 MG CAP PO PRN (21:35)
[2024-06-10] MEDS: ONDANSETRON 4 MG/2 ML VIAL IVP PRN (21:35)
[2024-06-11] MEDS: methylPREDNISolone SOD SUCCI 125 MG/2 ML VIAL IV SCH (00:29)
[2024-06-11] MEDS: ACETAMINOPHEN TAB 325 MG TAB PO PRN (01:48)
[2024-06-11] MEDS: LEVOTHYROXINE 125 MCG TAB PO SCH (05:20)
[2024-06-11 06:24] LABS: Glucose,Whole Blood 142 mg/dL (70-110)
[2024-06-11 06:49] LABS: Basophils % (A) 0 %; Eosinophils % (A) 0 %; HCT 36.9 % (34.0-46.0); HGB 11.6 gm/dL (11.4-16.0); Lymphocytes # (A) 0.4 k/uL (1.0-4.8); Lymphocytes % (A) 5 %; MCH 30.5 pg (25.0-35.0); MCHC 31.3 g/dL (31.0-37.0); MCV 97.4 fL (80.0-100.0); Mean Platelet Volume 7.8; Monocytes # (A) 0.3 k/uL (0-1.0); Monocytes % (A) 3 %; Neutrophils # (A) 7.4 k/uL (1.3-7.7); Neutrophils % (A) 90 %; Platelet Count 251 k/uL (150-450); RBC 3.79 m/uL (3.80-5.40); RDW 15.1 % (11.5-15.5); WBC 8.2 k/uL (3.8-10.6)
[2024-06-11 07:22] LABS: ALT 22 U/L (4-34); AST 26 U/L (14-36); African American GFR (CKD) 82 (>60 ml/min/1.73 sqM); Albumin 3.6 g/dL (3.5-5.0); Alkaline Phosphatase 61 U/L (38-126); Anion Gap 6 mmol/L; Blood Urea Nitrogen 23 mg/dL (7-17); Calcium 8.6 mg/dL (8.4-10.2); Carbon Dioxide 31 mmol/L (22-30); Chloride 100 mmol/L (98-107); Glucose 133 mg/dL (74-99); Magnesium 2.3 mg/dL (1.6-2.3); Non-African American GFR(CKD) 71 (>60 ml/min/1.73 sqM); Phosphorus 4.4 mg/dL (2.5-4.5); Potassium 4.3 mmol/L (3.5-5.1); Sodium 137 mmol/L (137-145); Total Bilirubin 0.5 mg/dL (0.2-1.3)
[2024-06-11] MEDS: LOSARTAN 50 MG TAB PO SCH (08:45)
[2024-06-11] MEDS: NIFEdipine XL 90 MG TAB.ER.24 PO SCH (08:45)
[2024-06-11] MEDS: BENZONATATE 100 MG CAP PO PRN (10:55)
[2024-06-11] MEDS: guaiFENesin 600 MG TABLET.ER PO SCH (10:55)
--- NOTE | 2024-06-11 11:00 | P.CRDCN ---
History of Present Illness History of present illness: HISTORY OF PRESENT ILLNESS: This is a 83-year-old female with a past medical history significant for COPD, hypertension, hyperlipidemia, complete heart block with pacemaker implantation, GI bleed, former nicotine dependence. Patient follows with a research contracts supervisor out of [facility]. We have been asked to see the patient in consultation for CHF. Patient examined at the bedside. Patient states she has been feeling unwell for the past 2 weeks. She states that she saw her PCP at that time and was placed on antibiotics and steroids. She states that she got better for a short period of time then her symptoms returned and she went back to her PCP. She was given a second round of antibiotics and steroids. Yesterday she states that her symptoms worsened. She checked her pulse ox at home and it was found to be in the 70s. She states that she has oxygen at home that was prescribed a few years ago but she does not use it. She states yesterday put her oxygen on at home but did not have any improvement in her symptoms. This morning she is having chest discomfort that is worse with deep inspiration and also with coughing. DIAGNOSTICS: - EKG reveals sinus mechanism with no signs of acute ischemia - Chest xray cardiomegaly and mild pulmonary vascular congestion.. - Laboratory data: WBC 8.2. Hemoglobin 11.6. Platelet count 251. Sodium 137. Potassium 4.3. BUN 23. Creatinine 0.78. Troponin negative x 3. proBNP 735. Positive for RSV. - Current home cardiac medications include Procardia 90 mg daily, losartan 100 mg daily. - Most recent echocardiogram obtained in 2018 revealed ejection fraction 50 to 55%, mild to moderate mitral regurgitation, mild tricuspid regurgitation - Cardiac catheterization history: Unknown REVIEW OF SYSTEMS: At the time of my exam: CONSTITUTIONAL: Denies fever or chills. HEENT: Denies blurred vision, vision changes, or eye pain. Denies hemoptysis CARDIOVASCULAR: Denies chest pain. Denies orthopnea. Denies PND. Denies palpitations RESPIRATORY: Reports shortness of breath. Reports frequent coughing. GASTROINTESTINAL: Denies abdominal pain. Denies nausea or vomiting. HEMATOLOGIC: Denies bleeding disorders. GENITOURINARY: Denies any blood in urine. SKIN: Denies pruitis. Denies rash. PHYSICAL EXAM: VITAL SIGNS: Reviewed. GENERAL: Well-developed in no acute distress. HEENT: Head is normocephalic. Pupils are equal, round. Sclerae anicteric. Mucous membranes of the mouth are moist. Neck supple. No JVD or thyromegaly LUNGS: Respirations even and unlabored. Lungs with expiratory wheezing noted. Frequent hacking coughing during examination. HEART: Regular rate and rhythm. S1 and S2 heard. Systolic murmur noted. ABDOMEN: Soft. Nondistended. Nontender. EXTREMITIES: Normal range of motion. No clubbing or cyanosis. Peripheral pulses intact. No lower extremity edema NEUROLOGIC: Awake and alert. Oriented x 3. ASSESSMENT: RSV Acute COPD exacerbation Acute hypoxic respiratory failure Congestive heart failure, ruled out Hypertension Hyperlipidemia History of complete heart block with dual-chamber pacemaker implantation, 2016, [facility] History of GI bleed Former nicotine dependence PLAN: Obtain 2D echo to assess cardiac structure and function Discontinue Nitropaste Discontinue IV Lasix as patient is euvolemic upon examination with no signs of congestive heart failure Resume home cardiac medications Further recommendations pending patient course Nurse practitioner note has been reviewed by physician. Signing provider agrees with the documented findings, assessment, and plan of care documented by KENNEL ASSISTANT as a scribe. 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 History of Any Multi-Drug Resistant Organisms: None Reported Past Surgical History: Appendectomy, Hernia Repair, Hysterectomy, Joint Replacement, Orthopedic Surgery, Pacemaker, Tonsillectomy Additional Past Surgical History / Comment(s): LAPROSCOPIC LYSIS OF ADHESIONS WITH COLECTOMY, TTT, pacemaker, skin cancer removal L cheek/skin graft, inguinal hernia repairs x3, BECCA total knee bilateral knee arthroscopies, total hip replacement, total right shoulder. partial thyroidectomy, pain clinic procedures (cervical), bilateral lasik eye surgery for vision correction. right shoulder replacement, bowel resection on 05/13/[address] Hutton rt hip replaced, Past Anesthesia/Blood Transfusion Reactions: No Reported Reaction Type of Cardiac Device: Permanent Pacemaker Device Placement Date:: 2015 Past Psychological History: No Psychological Hx Reported Additional Psychological History / Comment(s): Pt resides alone. She is independent. She has a nebulizer. Smoking Status: Former smoker Past Alcohol Use History: Occasional Additional Past Alcohol Use History / Comment(s): Pt started smoking in 1953 and quit in 3 years ago Past Drug Use History: None Reported - Past Family History Son(s) Family Medical History: Cancer Additional Family Medical History / Comment(s): TESTICULAR CA IN SONS X2 Daughter(s) Family Medical History: Cancer Additional Family Medical History / Comment(s): OVARIAN CANCER Mother Family Medical History: Cancer Additional Family Medical History / Comment(s): STOMACH CANCER Father Family Medical History: No Reported History Additional Family Medical History / Comment(s): Father was healthy Medications and Allergies Home Medications Medication Instructions Recorded Confirmed Type Albuterol Inhaler [Ventolin Hfa 2 puff INHALATION RT-Q4H PRN 05/09/18 06/10/24 History Inhaler] Gabapentin 300 mg PO QID PRN 10/09/22 06/10/24 History Amoxic-Pot Clav 875-125Mg 1 tab PO Q12HR 06/10/24 06/10/24 History [Augmentin 875-125] Fluticasone/Umeclidin/Vilanter 1 puff INHALATION DIRECTED 06/10/24 06/10/24 History [Trelegy Ellipta 200-62.5-25] Gabapentin [Neurontin] 100 mg PO DAILY PRN 06/10/24 06/10/24 History Levothyroxine Sodium [Synthroid] 125 mcg PO DAILY 06/10/24 06/10/24 History Losartan Potassium 100 mg PO DAILY 06/10/24 06/10/24 History NIFEdipine XL [Procardia Xl] 90 mg PO DAILY 06/10/24 06/10/24 History methylPREDNISolone Dose Pack See Taper PO DIRECTED 06/10/24 06/10/24 History [Medrol Dose Pack] Allergies Allergy/AdvReac Type Severity Reaction Status Date / Time acetaminophen [From [place]] Allergy Nausea & Verified 06/10/24 17:27 Vomiting hydrocodone Allergy Nausea & Verified 06/10/24 17:27 Vomiting hydrocodone bitartrate Allergy Nausea & Verified 06/10/24 17:27 [From Vicodin] Vomiting Iodinated Contrast Media Allergy Nausea & Verified 06/10/24 17:27 [Iodinated Contrast- Oral Vomiting and IV Dye] hydromorphone [From Dilaudid] AdvReac Vomiting Verified 06/10/24 17:27 grass,mold,dust,cats,trees Allergy Unknown Uncoded 10/09/23 14:20 Physical Exam Vitals: Vital Signs Temp Pulse Pulse Resp BP BP Pulse Ox 06/11/24 05:00 78 18 154/77 94 L 06/10/24 22:58 93 20 157/73 93 L 06/10/24 21:08 79 18 06/10/24 20:52 78 20 06/10/24 20:31 98.4 F 93 20 148/70 94 L 06/10/24 18:25 85 18 06/10/24 18:16 101 H 22 06/10/24 17:26 97.9 F 91 16 107/71 92 L 06/10/24 16:41 97.5 F L 88 18 112/80 86 L Intake and Output 06/10/24 06/11/24 06/11/24 22:59 06:59 14:59 Output Total 1000 Balance -1000 Output: Urine 1000 Other: Voiding Method Bedside Commode Bedside Commode External Catheter External Catheter Weight 86.183 kg Results 06/11/24 05:42 06/11/24 05:42 Cardiac Enzymes 06/10/24 06/10/24 06/10/24 Range/Units 16:53 16:53 19:42 AST 28 (14-36) U/L Troponin I 0.026 0.026 (0.000-0.034) ng/mL 06/10/24 06/11/24 Range/Units 23:02 05:42 AST 26 (14-36) U/L Troponin I 0.023 (0.000-0.034) ng/mL Coagulation 06/10/24 Range/Units 16:53 PT 10.8 (10.0-12.5) sec APTT 21.5 L (22.0-30.0) sec CBC 06/10/24 06/11/24 Range/Units 16:53 05:42 WBC 11.7 H 8.2 (3.8-10.6) k/uL RBC 3.97 3.79 L (3.80-5.40) m/uL Hgb 12.1 11.6 (11.4-16.0) gm/dL Hct 38.1 36.9 (34.0-46.0) % Plt Count 286 251 (150-450) k/uL Comprehensive Metabolic Panel 06/10/24 06/11/24 Range/Units 16:53 05:42 Sodium 134 L 137 (137-145) mmol/L Potassium 4.4 4.3 (3.5-5.1) mmol/L Chloride 100 100 (98-107) mmol/L Carbon Dioxide 25 31 H (22-30) mmol/L BUN 23 H 23 H (7-17) mg/dL Creatinine 0.80 0.78 (0.52-1.04) mg/dL Glucose 113 H 133 H (74-99) mg/dL Calcium 9.9 8.6 (8.4-10.2) mg/dL AST 28 26 (14-36) U/L ALT 23 22 (4-34) U/L Alkaline Phosphatase 71 61 (38-126) U/L Total Protein 7.0 6.0 L (6.3-8.2) g/dL Albumin 4.3 3.6 (3.5-5.0) g/dL Current Medications Generic Name Dose Route Start Last Admin Trade Name Freq PRN Reason Stop Dose Admin Acetaminophen 325 mg 06/10/24 21:08 06/11/24 01:48 Acetaminophen Tab 325 Mg Tab PO 325 mg Q6HR PRN Administration Fever and/ or Pain Albuterol Sulfate 2.5 mg 06/10/24 21:01 06/10/24 20:52 Albuterol Nebulized 2.5 Mg/3 Ml INHALATION 2.5 mg RT-QID PRN Administration Shortness Of Breath Or Wheezing Furosemide 40 mg 06/10/24 21:00 06/10/24 20:52 Furosemide 10 Mg/Ml 4 Ml Vial IV 40 mg Q12HR OMID Administration Gabapentin 100 mg 06/10/24 21:08 Gabapentin 100 Mg Cap PO DAILY PRN NERVE PAIN Gabapentin 300 mg 06/10/24 21:08 06/10/24 21:35 Gabapentin 300 Mg Cap PO 300 mg QID PRN Administration NERVE PAIN Guaifenesin/Dextromethorphan 10 ml 06/10/24 21:08 06/11/24 05:20 Guaifenesin-Dm 100-10mg/5ml 10 Ml Cup PO 10 ml Q6HR PRN Administration Cough Guaifenesin/Dextromethorphan 1 each 06/10/24 21:08 Guaifenesin-Dm 600/30mg 1 Each Tab.Er.12h PO Q12HR PRN Cough Levothyroxine Sodium 125 mcg 06/11/24 06:00 06/11/24 05:20 Levothyroxine 125 Mcg Tab PO 125 mcg DAILY@0600 OMID Administration Losartan Potassium 100 mg 06/11/24 09:00 Losartan 50 Mg Tab PO DAILY [facility] Methylprednisolone Sodium Succinate 60 mg 06/11/24 00:00 06/11/24 05:20 Methylprednisolone Sod Succi 125 Mg/2 Ml Vial IV 60 mg Q6HR OMID Administration Morphine Sulfate 4 mg 06/10/24 18:06 Morphine Sulfate 4 Mg/Ml Syringe IV Q4HR PRN Severe Pain (Scale 7 to 10) Naloxone HCl 0.2 mg 06/10/24 18:06 Naloxone 0.4 Mg/Ml 1 Ml Vial IVP Q2M PRN Opioid Reversal Nifedipine 90 mg 06/11/24 09:00 Nifedipine Xl 90 Mg Tab.Er.24 PO DAILY [facility] Nitroglycerin 1 inch 06/11/24 22:00 Nitroglycerin Oint 1 Inch/Gm Packet TOPICAL QID [facility] Ondansetron HCl 4 mg 06/10/24 18:06 06/10/24 21:35 Ondansetron 4 Mg/2 Ml Vial IVP 4 mg Q8HR PRN Administration Nausea And Vomiting Intake and Output 06/10/24 06/11/24 06/11/24 22:59 06:59 14:59 Output Total 1000 Balance -1000 Output: Urine 1000 Other: Voiding Method Bedside Commode Bedside Commode External Catheter External Catheter Weight 86.183 kg 06/11/24 05:42 06/11/24 05:42
[2024-06-11] MEDS: PANTOPRAZOLE 40 MG/10 ML VIAL IVP SCH (11:25)
[2024-06-11 11:58] LABS: Glucose,Whole Blood 138 mg/dL (70-110)
[2024-06-11] MEDS: IPRATROPIUM-ALBUTEROL 3 ML NEB INHALATION SCH (12:13)
--- NOTE | 2024-06-11 13:46 | CT ---
EXAMINATION TYPE: CT abdomen pelvis wo con DATE OF EXAM: 06/11/2024 1:15 PM COMPARISON: 08/25/2021 CLINICAL INDICATION: Female, 83 years old with history of abd pain, abdominal pain. TECHNIQUE: Axial images were obtained from above the diaphragm to the pubic rami in the axial plane a t 5 mm thick sections. Reconstructed images are reviewed on the computer in the coronal plane. CONTRAST: mL of . Study performed without Oral Contrast DLP: 1006.90 mGycm, Automated exposure control for dose reduction was used. FINDINGS: Limited CT sections are obtained the lung bases. The lung bases are clear. CT ABDOMEN: Liver: Normal Spleen: Normal Pancreas: Normal Adrenal glands: The adrenal glands are normal. Gallbladder: Not identified. Kidneys: No masses are evident. No hydronephrosis is present. No cysts are present. Delayed images were obtained through the kidneys, which remain unremarkable. Aorta: Vascular calcification is within the aorta. Inferior vena cava: Normal. CT PELVIS: Loops of bowel within the abdomen and pelvis are normal. This study is without oral contrast limi ting bowel dilation. Fecal debris is within the colon. There may be fecal debris at the anastomosis i n the left lower quadrant. The distal colon has a more normal caliber. Mild narrowing through the pro ximal sigmoid colon at the anastomosis should be considered. There is diverticular changes within the distal sigmoid colon. Appendix: Not clearly identified. No dilated tubular structure or inflammatory changes are evident. Urinary bladder: Normal. Genitourinary structures: Uterus and ovaries are not identified. Osseous structures: No suspicious lytic or sclerotic lesions. There is a right hip prosthesis present . Degenerative disc changes are present L5-S1. IMPRESSION: 1. Fecal debris with narrowing caliber change of the sigmoid colon at the anastomosis. Mild narrowin g may be present. 2. Distal sigmoid colon contains diverticulosis without acute diverticulitis. [facility], , 06/11/2024 1:44 PM
[2024-06-11] MEDS: CODEINE 30 MG TAB PO PRN (14:14)
[2024-06-11] MEDS: PROMETHAZINE 25 MG TAB PO PRN (14:14)
--- NOTE | 2024-06-11 14:18 | P.CNPUL ---
History of Present Illness Consult date: 06/11/24 Reason for consult: dyspnea History of present illness: This is an 83-year-old female patient, known to have COPD, uses albuterol rescue inhaler only on an as-needed basis. She also has a nebulizer at home. The patient presented with worsening shortness of breath, cough congestion chest tightness or wheezing. Symptoms started approximately 2 weeks ago. She was given amoxicillin, and Medrol Dosepak on outpatient basis. She was given the same treatment approximately 4 days ago. Nevertheless, her condition decompensated and she was getting more short of breath and for that reason she ended up coming into the emergency department. She tested positive for RSV. The chest x-ray shows no acute abnormalities. There are some cardiomegaly and mild pulm vessel congestion. CAT scan of the abdomen and pelvis was also done in the emergency department as the patient was complaining of some vague abdominal pain. The patient was found to have sigmoid diverticulosis without diverticulitis. The patient also had fecal debris's with narrowing caliber change of the sigmoid colon as previously described anastomosis. The patient's white cell count is at 8.2 with a hemoglobin 11.6 and a platelet count of 251. BUN is 23 with a creatinine of 0.7 and a sodium level is 137 and a potassium level is at 4.3 Noted the patient has undergone previous colectomy for a complicated diverticulitis with colostomy and subsequent reversal. She has COPD. She has skin cancer. She has thyroid disease. 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 She suffers from degenerative arthritis. She has multiple joint surgeries involving the knees and she has undergone total hip replacement and shoulder surgeries. Review of Systems Constitutional: Reports fatigue, Reports weakness Eyes: denies as per HPI, denies blurred vision, denies bulging eye, denies decreased vision, denies diplopia, denies discharge, denies dry eye, denies irritation, denies itching, denies pain, denies photophobia, denies loss of peripheral vision, denies loss of vision, denies tunnel vision/blind spots Ears: deny: decreased hearing, ear discharge, earache, tinnitus Ears, nose, mouth and throat: Reports as per HPI Breasts: absent: as per HPI, change in shape, gynecomastia, masses, nipple discharge, pain, skin changes, swelling Cardiovascular: Reports decreased exercise tolerance Respiratory: Reports cough, Reports dyspnea Gastrointestinal: Reports as per HPI Genitourinary: Reports as per HPI Menstruation: Reports as per HPI Musculoskeletal: Reports as per HPI Musculoskeletal: absent: ankle pain, ankle stiffness, ankle swelling, as per HPI, elbow pain, elbow stiffness, elbow swelling, foot pain, foot stiffness, foot swelling, hand pain, hand stiffness, hand swelling, hip pain, hip stiffness, hip swelling, knee pain, knee stiffness, knee swelling, shoulder pain, shoulder stiffness, shoulder swelling, wrist pain, wrist stiffness, wrist swelling Integumentary: Reports as per HPI Neurological: Reports as per HPI Psychiatric: Reports as per HPI Endocrine: Reports as per HPI Hematologic/Lymphatic: Reports as per HPI Allergic/Immunologic: Reports as per HPI Past Medical History Past Medical History: Cancer (skin cancer), COPD, Musculoskeletal Disorder, Osteoarthritis (OA), Thyroid Disorder Additional Past Medical History / Comment(s): COLOSTOMY w/ reversal, 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 History of Any Multi-Drug Resistant Organisms: None Reported Past Surgical History: Appendectomy, Hernia Repair, Hysterectomy, Joint Replacement, Orthopedic Surgery, Pacemaker, Tonsillectomy Additional Past Surgical History / Comment(s): LAPROSCOPIC LYSIS OF ADHESIONS WITH COLECTOMY, TTT, pacemaker, skin cancer removal L cheek/skin graft, ing uinal hernia repairs x3, BECCA total knee bilateral knee arthroscopies, total hip replacement, total right shoulder. partial thyroidectomy, pain clinic procedures (cervical), bilateral lasik eye surgery for vision correction. right shoulder replacement, bowel resection on 05/13/[address] Hutton rt hip replaced, Past Anesthesia/Blood Transfusion Reactions: No Reported Reaction Type of Cardiac Device: Permanent Pacemaker Device Placement Date:: 2015 Past Psychological History: No Psychological Hx Reported Additional Psychological History / Comment(s): Pt resides alone. She is independent. She has a nebulizer. Smoking Status: Former smoker Past Alcohol Use History: Occasional Additional Past Alcohol Use History / Comment(s): Pt started smoking in 1953 and quit in 3 years ago Past Drug Use History: None Reported - Past Family History Son(s) Family Medical History: Cancer Additional Family Medical History / Comment(s): TESTICULAR CA IN SONS X2 Daughter(s) Family Medical History: Cancer Additional Family Medical History / Comment(s): OVARIAN CANCER Mother Family Medical History: Cancer Additional Family Medical History / Comment(s): STOMACH CANCER Father Family Medical History: No Reported History Additional Family Medical History / Comment(s): Father was healthy Medications and Allergies Home Medications Medication Instructions Recorded Confirmed Type Albuterol Inhaler [Ventolin Hfa 2 puff INHALATION RT-Q4H PRN 05/09/18 06/10/24 History Inhaler] Gabapentin 300 mg PO QID PRN 10/09/22 06/10/24 History Amoxic-Pot Clav 875-125Mg 1 tab PO Q12HR 06/10/24 06/10/24 History [Augmentin 875-125] Fluticasone/Umeclidin/Vilanter 1 puff INHALATION DIRECTED 06/10/24 06/10/24 History [Trelegy Ellipta 200-62.5-25] Gabapentin [Neurontin] 100 mg PO DAILY PRN 06/10/24 06/10/24 History Levothyroxine Sodium [Synthroid] 125 mcg PO DAILY 06/10/24 06/10/24 History Losartan Potassium 100 mg PO DAILY 06/10/24 06/10/24 History NIFEdipine XL [Procardia Xl] 90 mg PO DAILY 06/10/24 06/10/24 History methylPREDNISolone Dose Pack See Taper PO DIRECTED 06/10/24 06/10/24 History [Medrol Dose Pack] Allergies Allergy/AdvReac Type Severity Reaction Status Date / Time acetaminophen [From [place]] Allergy Nausea & Verified 06/10/24 17:27 Vomiting hydrocodone Allergy Nausea & Verified 06/10/24 17:27 Vomiting hydrocodone bitartrate Allergy Nausea & Verified 06/10/24 17:27 [From Vicodin] Vomiting Iodinated Contrast Media Allergy Nausea & Verified 06/10/24 17:27 [Iodinated Contrast- Oral Vomiting and IV Dye] hydromorphone [From Dilaudid] AdvReac Vomiting Verified 06/10/24 17:27 grass,mold,dust,cats,trees Allergy Unknown Uncoded 10/09/23 14:20 Physical Exam Vitals: Vital Signs Temp Pulse Pulse Resp BP BP Pulse Ox 06/11/24 08:40 98.4 F 73 22 144/80 95 02/23/25 05:00 78 18 154/77 94 L 06/10/24 22:58 93 20 157/73 93 L 06/10/24 21:08 79 18 06/10/24 20:52 78 20 06/10/24 20:31 98.4 F 93 20 148/70 94 L 06/10/24 18:25 85 18 06/10/24 18:16 101 H 22 06/10/24 17:26 97.9 F 91 16 107/71 92 L 06/10/24 16:41 97.5 F L 88 18 112/80 86 L Intake and Output 06/10/24 06/11/24 06/11/24 22:59 06:59 14:59 Output Total 1000 50 Balance -1000 -50 Output: Urine 1000 Emesis 50 Other: Voiding Method Bedside Commode Bedside Commode External Catheter External Catheter Weight 86.183 kg The patient appeared well nourished and normally developed. Vital signs as documented. Patient currently on 2 L of oxygen by nasal cannula Head exam is unremarkable. No scleral icterus or corneal arcus noted. Neck is without jugular venous distension, thyromegaly, or carotid bruits. Carotid upstrokes are brisk bilaterally. Lungs are diminished bilaterally along with diffuse expiratory wheezes throughout the lung gutierrez Cardiac exam reveals the PMI to be normally sized and situated. Rhythm is regular. First and second heart sounds normal. No murmurs, rubs or gallops. Abdominal exam reveals normal bowel sounds, no masses, no organomegaly and no aortic enlargement. Scars of previous abdominal surgery are present on the anterior abdominal wall Extremities are nonedematous and both femoral and pedal pulses are normal. Examination of the skin revealed no evidence of significant rashes, suspicious appearing nevi or other concerning lesions. Neurologically, the patient is awake and alert and the patient does not have any focal neurological deficit. Cranial nerves are essentially intact. Results - Laboratory Findings CBC and BMP: 06/11/24 05:42 06/11/24 05:42 PT/INR, D-dimer PT 10.8 sec (10.0-12.5) 06/10/24 16:53 INR 1.0 (<1.2) 06/10/24 16:53 Abnormal lab findings: Abnormal Labs 06/10/24 06/10/24 06/10/24 16:53 16:53 16:53 WBC 11.7 H RBC Neutrophils # 9.4 H Lymphocytes # 0.7 L Monocytes # 1.3 H APTT 21.5 L Sodium 134 L Carbon Dioxide BUN 23 H Glucose 113 H POC Glucose (mg/dL) Plasma Lactic Acid Bryn Total Protein RSV (PCR) 06/10/24 06/10/24 06/10/24 16:53 16:53 20:38 WBC RBC Neutrophils # Lymphocytes # Monocytes # APTT Sodium Carbon Dioxide BUN Glucose POC Glucose (mg/dL) 141 H Plasma Lactic Acid Bryn 2.1 H* Total Protein RSV (PCR) Detected A 06/11/24 06/11/24 06/11/24 05:42 05:42 06:06 WBC RBC 3.79 L Neutrophils # Lymphocytes # 0.4 L Monocytes # APTT Sodium Carbon Dioxide 31 H BUN 23 H Glucose 133 H POC Glucose (mg/dL) 142 H Plasma Lactic Acid Bryn Total Protein 6.0 L RSV (PCR) - Diagnostic Findings Chest x-ray: image reviewed Assessment and Plan Plan: Acute exacerbation of COPD with secondary shortness of breath, failed outpatient treatment Acute RSV infection exacerbating air underlying COPD Shortness of breath secondary to above Acute hypoxic respiratory failure currently on 2 L of oxygen by nasal cannula Degenerative arthritis Previous history of a complicated diverticulitis requiring colectomy, colostomy with subsequent reversal History of third-degree AV block and the patient has a permanent pacemaker in place Degenerative arthritis involving the knees and the hips and the shoulders with multiple orthopedic interventions surgery in the past History of skin cancer removed History of migraines Hypothyroidism and the patient has undergone previous partial thyroidectomy Plan Titrate oxygen flow to maintain saturation above 90%, currently on 2 L Symbicort 160/4.52 puffs twice a day DuoNeb nebulizer treatments [id number] Robitussin DM for cough and congestion Resume home medications CAT scan of the abdomen was noted Will continue to follow Time with Patient: Greater than 30
--- NOTE | 2024-06-11 14:56 | P.HPIM ---
History of Present Illness H&P Date: 06/11/24 History of present illness; patient is a 83-year-old lady with past medical history significant for COPD, chronic hypoxic respiratory failure who presented the ER because of worsening shortness of breath. Patient stated that she has been feeling short of breath for the last 2 days. Patient stated that she has been using her breathing treatments but they are not helping her to get better. Shortness of breath is present at rest as on exertion. Patient is also complaining of cough. Patient denies any chest pain. There is no complaint of orthopnea or PND. Patient denies any swelling of feet. There was no complaint of nausea, vomiting or abdominal pain. Because of this worsening shortness of breath, patient brought in the ER Initial lab work done in the ER showed WBC 11.7, hemoglobin 12.1, platelet count 286, sodium 134, potassium 4.4, BUN 23, creatinine 0.80, glucose 113, lactate 2. 1, calcium 9.9, troponin 0.026 Influenza A not detected Influenza B not detected RSV detected COVID-19 not detected EKG done in the ER showed heart rate of 88 , no ST segment elevation or depression seen, no T-wave inversions seen. Chest x-ray done in the ER showed cardiomegaly and mild pulm venous congestion Patient admitted to internal medicine service REVIEW OF SYSTEMS: CONSTITUTIONAL: No fever, no malaise, no fatigue. HEENT: No recent visual problems or hearing problems. Denied any sore throat. CARDIOVASCULAR: As mentioned above PULMONARY: As mentioned above GASTROINTESTINAL: No diarrhea, no nausea, no vomiting, no abdominal pain. NEUROLOGICAL: No headaches, no weakness, no numbness. HEMATOLOGICAL: Denies any bleeding or petechiae. GENITOURINARY: Denies any burning micturition, frequency, or urgency. MUSCULOSKELETAL/RHEUMATOLOGICAL: Denies any joint pain, swelling, or any muscle pain. ENDOCRINE: Denies any polyuria or polydipsia. The rest of the 14-point review of systems is negative. PHYSICAL EXAMINATION: GENERAL: The patient is alert and oriented x3, not in any acute distress. Well developed, well nourished. HEENT: Pupils are round and equally reacting to light. EOMI. No scleral icterus. No conjunctival pallor. Normocephalic, atraumatic. No pharyngeal erythema. No thyromegaly. CARDIOVASCULAR: S1 and S2 present. No murmurs, rubs, or gallops. PULMONARY: Coarse breath sound bilaterally, expiratory wheeze audible ABDOMEN: Soft, nontender, nondistended, normoactive bowel sounds. No palpable organomegaly. MUSCULOSKELETAL: No joint swelling or deformity. EXTREMITIES: No cyanosis, clubbing, or pedal edema. NEUROLOGICAL: Gross neurological examination did not reveal any focal deficits. SKIN: No rashes. Assessment and plan Acute on chronic hypoxic respiratory failure Acute COPD exacerbation Acute RSV infection Viral sepsis Hypothyroidism History of hypertension Monitor vital signs Monitor CBC Monitor CMP Continue telemetry monitoring Ordered serial troponin Ordered breathing treatments Ordered IV Solu-Medrol Ordered mucolytic's in the form of Mucinex Ordered antitussives Resume Synthroid Resume losartan Consult pulmonary Labs and medication were reviewed.. Continue same treatment. Continue with symptomatic treatment. Resume home medication. Monitor labs and vitals. DVT and GI prophylaxis. Further recommendations as per clinical course of the patient Dictation was produced using [employer] dictation software. please excuse any gram matical, word or spelling errors. 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 History of Any Multi-Drug Resistant Organisms: None Reported Past Surgical History: Appendectomy, Hernia Repair, Hysterectomy, Joint Replacement, Orthopedic Surgery, Pacemaker, Tonsillectomy Additional Past Surgical History / Comment(s): LAPROSCOPIC LYSIS OF ADHESIONS WITH COLECTOMY, TTT, pacemaker, skin cancer removal L cheek/skin graft, ing uinal hernia repairs x3, BECCA total knee bilateral knee arthroscopies, total hip replacement, total right shoulder. partial thyroidectomy, pain clinic procedures (cervical), bilateral lasik eye surgery for vision correction. right shoulder replacement, bowel resection on 05/13/[address] Hutton rt hip replaced, Past Anesthesia/Blood Transfusion Reactions: No Reported Reaction Type of Cardiac Device: Permanent Pacemaker Device Placement Date:: 2015 Past Psychological History: No Psychological Hx Reported Additional Psychological History / Comment(s): Pt resides alone. She is independent. She has a nebulizer. Smoking Status: Former smoker Past Alcohol Use History: Occasional Additional Past Alcohol Use History / Comment(s): Pt started smoking in 1953 and quit in 3 years ago Past Drug Use History: None Reported - Past Family History Son(s) Family Medical History: Cancer Additional Family Medical History / Comment(s): TESTICULAR CA IN SONS X2 Daughter(s) Family Medical History: Cancer Additional Family Medical History / Comment(s): OVARIAN CANCER Mother Family Medical History: Cancer Additional Family Medical History / Comment(s): STOMACH CANCER Father Family Medical History: No Reported History Additional Family Medical History / Comment(s): Father was healthy Medications and Allergies Home Medications Medication Instructions Recorded Confirmed Type Albuterol Inhaler [Ventolin Hfa 2 puff INHALATION RT-Q4H PRN 05/09/18 06/10/24 History Inhaler] Gabapentin 300 mg PO QID PRN 10/09/22 06/10/24 History Amoxic-Pot Clav 875-125Mg 1 tab PO Q12HR 06/10/24 06/10/24 History [Augmentin 875-125] Fluticasone/Umeclidin/Vilanter 1 puff INHALATION DIRECTED 06/10/24 06/10/24 History [Trelegy Ellipta 200-62.5-25] Gabapentin [Neurontin] 100 mg PO DAILY PRN 06/10/24 06/10/24 History Levothyroxine Sodium [Synthroid] 125 mcg PO DAILY 06/10/24 06/10/24 History Losartan Potassium 100 mg PO DAILY 06/10/24 06/10/24 History NIFEdipine XL [Procardia Xl] 90 mg PO DAILY 06/10/24 06/10/24 History methylPREDNISolone Dose Pack See Taper PO DIRECTED 06/10/24 06/10/24 History [Medrol Dose Pack] Allergies Allergy/AdvReac Type Severity Reaction Status Date / Time acetaminophen [From [place]] Allergy Nausea & Verified 06/10/24 17:27 Vomiting hydrocodone Allergy Nausea & Verified 06/10/24 17:27 Vomiting hydrocodone bitartrate Allergy Nausea & Verified 06/10/24 17:27 [From Vicodin] Vomiting Iodinated Contrast Media Allergy Nausea & Verified 06/10/24 17:27 [Iodinated Contrast- Oral Vomiting and IV Dye] hydromorphone [From Dilaudid] AdvReac Vomiting Verified 06/10/24 17:27 grass,mold,dust,cats,trees Allergy Unknown Uncoded 10/09/23 14:20 Physical Exam Vitals: Vital Signs Temp Pulse Pulse Resp BP BP Pulse Ox 06/11/24 08:40 98.4 F 73 22 144/80 95 06/11/24 05:00 78 18 154/77 94 L 06/10/24 22:58 93 20 157/73 93 L 06/10/24 21:08 79 18 06/10/24 20:52 78 20 06/10/24 20:31 98.4 F 93 20 148/70 94 L 06/10/24 18:25 85 18 06/10/24 18:16 101 H 22 06/10/24 17:26 97.9 F 91 16 107/71 92 L 06/10/24 16:41 97.5 F L 88 18 112/80 86 L Intake and Output 06/10/24 06/11/24 06/11/24 22:59 06:59 14:59 Output Total 1000 Balance -1000 Output: Urine 1000 Other: Voiding Method Bedside Commode Bedside Commode External Catheter External Catheter Weight 86.183 kg Results CBC & Chem 7: 06/11/24 05:42 06/11/24 05:42 Labs: Abnormal Lab Results - Last 24 Hours (Table) 06/10/24 06/10/24 06/10/24 Range/Units 16:53 16:53 16:53 WBC 11.7 H (3.8-10.6) k/uL RBC (3.80-5.40) m/uL Neutrophils # 9.4 H (1.3-7.7) k/uL Lymphocytes # 0.7 L (1.0-4.8) k/uL Monocytes # 1.3 H (0-1.0) k/uL APTT 21.5 L (22.0-30.0) sec Sodium 134 L (137-145) mmol/L Carbon Dioxide (22-30) mmol/L BUN 23 H (7-17) mg/dL Glucose 113 H (74-99) mg/dL POC Glucose (mg/dL) (70-110) mg/dL Plasma Lactic Acid Bryn (0.7-2.0) mmol/L Total Protein (6.3-8.2) g/dL RSV (PCR) (Not Detectd) 06/10/24 06/10/24 06/10/24 Range/Units 16:53 16:53 20:38 WBC (3.8-10.6) k/uL RBC (3.80-5.40) m/uL Neutrophils # (1.3-7.7) k/uL Lymphocytes # (1.0-4.8) k/uL Monocytes # (0-1.0) k/uL APTT (22.0-30.0) sec Sodium (137-145) mmol/L Carbon Dioxide (22-30) mmol/L BUN (7-17) mg/dL Glucose (74-99) mg/dL POC Glucose (mg/dL) 141 H (70-110) mg/dL Plasma Lactic Acid Bryn 2.1 H* (0.7-2.0) mmol/L Total Protein (6.3-8.2) g/dL RSV (PCR) Detected A (Not Detectd) 06/11/24 06/11/24 06/11/24 Range/Units 05:42 05:42 06:06 WBC (3.8-10.6) k/uL RBC 3.79 L (3.80-5.40) m/uL Neutrophils # (1.3-7.7) k/uL Lymphocytes # 0.4 L (1.0-4.8) k/uL Monocytes # (0-1.0) k/uL APTT (22.0-30.0) sec Sodium (137-145) mmol/L Carbon Dioxide 31 H (22-30) mmol/L BUN 23 H (7-17) mg/dL Glucose 133 H (74-99) mg/dL POC Glucose (mg/dL) 142 H (70-110) mg/dL Plasma Lactic Acid Bryn (0.7-2.0) mmol/L Total Protein 6.0 L (6.3-8.2) g/dL RSV (PCR) (Not Detectd) Thrombosis Risk Factor Assmnt - Choose All That Apply Any of the Below Risk Factors Present?: No Other Risk Factors: Yes Each Risk Factor Represents 3 Points: Age 75 years or older Other congenital or acquired thrombophilia - If yes, enter type in comment: No Thrombosis Risk Factor Assessment Total Risk Factor Score: 3 Thrombosis Risk Factor Assessment Level: Moderate Risk
[2024-06-11 16:51] LABS: Glucose,Whole Blood 188 mg/dL (70-110)
[2024-06-11 20:19] LABS: Glucose,Whole Blood 170 mg/dL (70-110)
[2024-06-11] MEDS: SYMBICORT 160-4.5 MCG INHALER INHALATION SCH (21:25)
[2024-06-11] MEDS ORDERED: NITROGLYCERIN OINT 1 INCH/GM PACKET TOPICAL SCH (22:00)
[2024-06-12 06:05] LABS: Glucose,Whole Blood 159 mg/dL (70-110)
--- NOTE | 2024-06-12 08:32 | P.PN ---
Subjective HISTORY OF PRESENT ILLNESS: This is a 83-year-old female with a past medical history significant for COPD, hypertension, hyperlipidemia, complete heart block with pacemaker implantation, GI bleed, former nicotine dependence. Patient follows with a rim technician out of [facility]. We have been asked to see the patient in consultation for CHF. Patient examined at the bedside. Patient states she has been feeling unwell for the past 2 weeks. She states that she saw her PCP at that time and was placed on antibiotics and steroids. She states that she got better for a short period of time then her symptoms returned and she went back to her PCP. She was given a second round of antibiotics and steroids. Yesterday she states that her sym ptoms worsened. She checked her pulse ox at home and it was found to be in the 70s. She states that she has oxygen at home that was prescribed a few years ago but she does not use it. She states yesterday put her oxygen on at home but did not have any improvement in her symptoms. This morning she is having chest discomfort that is worse with deep inspiration and also with coughing. DIAGNOSTICS: - EKG reveals sinus mechanism with no signs of acute ischemia - Chest xray cardiomegaly and mild pulmonary vascular congestion.. - Laboratory data: WBC 8.2. Hemoglobin 11.6. Platelet count 251. Sodium 137. Potassium 4.3. BUN 23. Creatinine 0.78. Troponin negative x 3. proBNP 735. Positive for RSV. - Current home cardiac medications include Procardia 90 mg daily, losartan 100 mg daily. - Most recent echocardiogram obtained in 2018 revealed ejection fraction 50 to 55%, mild to moderate mitral regurgitation, mild tricuspid regurgitation - Cardiac catheterization history: Unknown 06/12/2024 Patient examined this morning at the bedside. Patient denies chest pain or pressure. She reports shortness of breath this morning. She states "I am coughing so hard I feel like my ribs are going to break". She is requesting breathing treatment at the time of exam. Blood pressure stable. PHYSICAL EXAM: VITAL SIGNS: Reviewed. GENERAL: Well-developed in no acute distress. HEENT: Head is normocephalic. Pupils are equal, round. Sclerae anicteric. Mucous membranes of the mouth are moist. Neck supple. No JVD or thyromegaly LUNGS: Respirations even and unlabored. Lungs with expiratory wheezing noted. Frequent hacking coughing during examination. HEART: Regular rate and rhythm. S1 and S2 heard. Systolic murmur noted. ABDOMEN: Soft. Nondistended. Nontender. EXTREMITIES: Normal range of motion. No clubbing or cyanosis. Peripheral pulses intact. No lower extremity edema NEUROLOGIC: Awake and alert. Oriented x 3. ASSESSMENT: RSV Acute COPD exacerbation Acute hypoxic respiratory failure Congestive heart failure, ruled out Hypertension Hyperlipidemia History of complete heart block with dual-chamber pacemaker implantation, 2016, [facility] History of GI bleed Former nicotine dependence PLAN: Continue current cardiac medications Patient is currently euvolemic upon examination with no signs of acute heart failure Awaiting results of 2D echo. If no significant abnormalities noted on echocardiogram, no further cardiac workup will be warranted Patient may follow-up postdischarge with her primary rim technician [facility] Nurse practitioner note has been reviewed by physician. Signing provider agrees with the documented findings, assessment, and plan of care documented by [employer]LINE MERCHANDIS[employer] as a scribe. Objective - Vital Signs Vital signs: Vital Signs Temp 97.9 F 06/12/24 07:10 Pulse 75 06/12/24 07:10 Resp 18 06/12/24 07:10 BP 127/70 06/12/24 07:10 Pulse Ox 93 L 06/12/24 07:10 FiO2 Intake & Output 06/11/24 06/12/24 06/12/24 18:59 06:59 18:59 Intake Total 354 118 Output Total 50 450 Balance 304 118 -450 Intake: Oral 354 118 Output: Urine 450 Emesis 50 Other: Voiding Method Bedside Commode External Catheter # Voids 700 1 # Bowel Movements 0 - Labs CBC & Chem 7: 06/11/24 05:42 06/11/24 05:42 Labs: Abnormal Lab Results - Last 24 Hours (Table) 06/11/24 06/11/24 06/11/24 Range/Units 11:56 16:50 20:16 POC Glucose (mg/dL) 138 H 188 H 170 H (70-110) mg/dL 06/12/24 Range/Units 06:04 POC Glucose (mg/dL) 159 H (70-110) mg/dL
--- NOTE | 2024-06-12 08:43 | P.PN ---
Subjective History of present illness; patient is a 83-year-old lady with past medical history significant for COPD, chronic hypoxic respiratory failure who presented the ER because of worsening shortness of breath. Patient stated that she has been feeling short of breath for the last 2 days. Patient stated that she has been using her breathing treatments but they are not helping her to get better. Shortness of breath is present at rest as on exertion. Patient is also complaining of cough. Patient denies any chest pain. There is no complaint of orthopnea or PND. Patient denies any swelling of feet. There was no complaint of nausea, vomiting or abdominal pain. Because of this worsening shortness of breath, patient brought in the ER Initial lab work done in the ER showed WBC 11.7, hemoglobin 12.1, platelet count 286, sodium 134, potassium 4.4, BUN 23, creatinine 0.80, glucose 113, lactate 2.1, calcium 9.9, troponin 0.026 Influenza A not detected Influenza B not detected RSV detected COVID-19 not detected EKG done in the ER showed heart rate of 88 , no ST segment elevation or depression seen, no T-wave inversions seen. Chest x-ray done in the ER showed cardiomegaly and mild pulm venous congestion Patient admitted to internal medicine service 06/12 Patient still feeling short of breath and still wheezing and coarse crepitation related to her RSV infection She is currently on 2 L oxygen at home she was not on any. Patient also had CAT scan of the abdomen on admission showing possible narrowing of the sigmoid colon, as per patient she does not have problem with defecation right now, she states she had colonoscopy with [facility] about 1.5 years ago. She is covered with IV Solu-Medrol 60 mg. Objective - Vital Signs Vital signs: Vital Signs Temp 97.9 F 06/12/24 07:10 Pulse 75 06/12/24 07:10 Resp 18 06/12/24 07:10 BP 127/70 06/12/24 07:10 Pulse Ox 93 L 06/12/24 07:10 FiO2 Intake & Output 06/11/24 06/12/24 06/12/24 18:59 06:59 18:59 Intake Total 354 118 Output Total 50 450 Balance 304 118 -450 Intake: Oral 354 118 Output: Urine 450 Emesis 50 Other: Voiding Method Bedside Commode External Catheter # Voids 700 1 # Bowel Movements 0 - Exam GENERAL: The patient is alert and oriented x3, not in any acute distress. Well developed, well nourished. HEENT: Pupils are round and equally reacting to light. EOMI. No scleral icterus. No conjunctival pallor. Normocephalic, atraumatic. No pharyngeal erythema. No thyromegaly. CARDIOVASCULAR: S1 and S2 present. No murmurs, rubs, or gallops. -PULMONARY: Chest is clear to auscultation, bilateral scattered wheezing , no crackles. ABDOMEN: Soft, nontender, nondistended, normoactive bowel sounds. No palpable organomegaly. MUSCULOSKELETAL: No joint swelling or deformity. EXTREMITIES: No cyanosis, clubbing, or pedal edema. NEUROLOGICAL: Gross neurological examination did not reveal any focal deficits. SKIN: No rashes. no petechiae. - Labs CBC & Chem 7: 06/11/24 05:42 06/11/24 05:42 Labs: Abnormal Lab Results - Last 24 Hours (Table) 06/11/24 06/11/24 06/11/24 Range/Units 11:56 16:50 20:16 POC Glucose (mg/dL) 138 H 188 H 170 H (70-110) mg/dL 06/12/24 Range/Units 06:04 POC Glucose (mg/dL) 159 H (70-110) mg/dL Assessment and Plan Assessment: Acute COPD exacerbation RSV infection Acute hypoxic respiratory failure Possible narrowing of the sigmoid colon, patient can follow-up as an outpatient currently asymptomatic Obesity with BMI of 29.8 Plan: Continue with bronchodilator Continue with IV Solu-Medrol 60 mg Pulmonary team consult Patient informed about her colon problem and she said she follow-up with [facility] Labs and medication were reviewed.. Continue same treatment. Continue with s ymptomatic treatment. Resume home medication. Monitor labs and vitals. DVT and GI prophylaxis. Further recommendations as per clinical course of the patient DVT prophylaxis: Subcutaneous heparin GI Prophylaxis: Pepcid Prognosis is guarded
[2024-06-12] MEDS: HEPARIN SODIUM,PORCINE 5,000 UNIT/ML 1 ML VIAL SQ SCH (09:22)
[2024-06-12 11:42] LABS: Glucose,Whole Blood 173 mg/dL (70-110)
--- NOTE | 2024-06-12 12:31 | CA ---
Transthoracic Echo Report Name: Guera Loepz Age: 83 Gender: F : 1940 Exam Date: 06/12/2024 10:23 Exam Location: [facility] Ht (in): 67 Wt (lb): 190 Ordering Physician: Per Guerra DO Attending/Referring Phys: [id number], Mari Grinder Set [employer] Operator [employer] Gypsy Virgen RDCS Procedure CPT: Indications: Heart failure Cardiac Hx: Technical Quality: Good Contrast 1: Total Dose (mL): Contrast 2: Total Dose (mL): MEASUREMENTS (Male / Female) Normal Values 2D ECHO LV Diastolic Diameter PLAX 5.6 cm 4.2 - 5.9 / 3.9 - 5.3 cm LV Systolic Diameter PLAX 3.8 cm IVS Diastolic Thickness 1.3 cm 0.6 - 1.0 / 0.6 - 0.9 cm LVPW Diastolic Thickness 1.4 cm 0.6 - 1.0 / 0.6 - 0.9 cm LV Relative Wall Thickness 0.5 RV Internal Dim ED PLAX 3.3 cm LA Systolic Diameter LX 4.1 cm 3.0 - 4.0 / 2.7 - 3.8 cm LV Diastolic Volume MOD BP 136.5 cm??? 67 - 155 / 56 - 104 cm??? LV Systolic Volume MOD BP 71.0 cm??? 22 - 58 / 19 - 49 cm??? LV Ejection Fraction MOD BP 48.0 % >= 55 % LV Cardiac Index MOD BP 2180.6 cm???/min???m??? LV Diastolic Volume MOD 4C 178.8 cm??? LV Systolic Volume MOD 4C 101.3 cm??? LV Ejection Fraction MOD 4C 43.3 % LV Cardiac Index MOD 4C 2580.4 cm???/min???m??? LV Diastolic Length 4C 9.0 cm LV Systolic Length 4C 7.7 cm LV Diastolic Volume MOD 2C 105.8 cm??? LV Systolic Volume MOD 2C 64.9 cm??? LV Ejection Fraction MOD 2C 38.6 % LV Cardiac Index MOD 2C 1360.6 cm???/min???m??? LV Diastolic Length 2C 7.9 cm LV Systolic Length 2C 7.7 cm M-MODE Aortic Root Diameter MM 3.1 cm DOPPLER AV Peak Velocity 148.2 cm/s AV Peak Gradient 8.8 mmHg AV Mean Velocity 158.6 cm/s AV Mean Gradient 11.2 mmHg AV Velocity Time Integral 50.5 cm Mitral E Point Velocity 90.2 cm/s Mitral A Point Velocity 123.8 cm/s Mitral E to A Ratio 0.7 MV Deceleration Time 228.3 ms MV E' Velocity 5.3 cm/s Mitral E to MV E' Ratio 17.2 TR Peak Velocity 276.4 cm/s TR Peak Gradient 30.5 mmHg Right Ventricular Systolic Press 40.6 mmHg FINDINGS Left Ventricle Left ventricular ejection fraction is estimated at 45-50%. Left ventricular cavity size normal. Mildly increased septal wall thickness. Moderately increased posterior wall thickness. Mildly increased left ventricular diastolic diameter. Severely increased left ventricular diastolic volume. Severely increased left ventricular systolic volume. Mildly decreased left ventricular ejection fraction. Right Ventricle Mild right ventricular dilatation. Mild pulmonary hypertension. Right Atrium Normal right atrial size. No right atrial thrombus or mass seen. Left Atrium Mildly increased left atrial diameter. No left atrial thrombus or mass present. Mitral Valve Mitral valve thickened. Mild mitral annular calcification. Mild mitral regurgitation. Aortic Valve Trileaflet aortic valve. Mild aortic regurgitation. Tricuspid Valve Structurally normal tricuspid valve. Mild tricuspid regurgitation. Pulmonic Valve Structurally normal pulmonic valve. Mild pulmonic regurgitation. Pericardium No pericardial effusion. Aorta Normal size aortic root and proximal ascending aorta. CONCLUSIONS Mild LV systolic dysfunction Mild mitral aortic and tricuspid regurgitation Previewed by: Dr. Oumar Hernandez MD (Electronically Signed) Final Date: 12 June 2024 12:30
--- NOTE | 2024-06-12 14:36 | P.PN ---
Subjective Progress Note Date: 06/12/24 This is an 83-year-old female patient, known to have COPD, uses albuterol rescue inhaler only on an as-needed basis. She also has a nebulizer at home. The patient presented with worsening shortness of breath, cough congestion chest tightness or wheezing. Symptoms started approximately 2 weeks ago. She was given amoxicillin, and Medrol Dosepak on outpatient basis. She was given the same treatment approximately 4 days ago. Nevertheless, her condition decompensated and she was getting more short of breath and for that reason she ended up coming into the emergency department. She tested positive for RSV. The chest x-ray shows no acute abnormalities. There are some cardiomegaly and mild pulm vessel congestion. CAT scan of the abdomen and pelvis was also done in the emergency department as the patient was complaining of some vague abdominal pain. The patient was found to have sigmoid diverticulosis without diverticulitis. The patient also had fecal debris's with narrowing caliber matamoros ge of the sigmoid colon as previously described anastomosis. The patient's white cell count is at 8.2 with a hemoglobin 11.6 and a platelet count of 251. BUN is 23 with a creatinine of 0.7 and a sodium level is 137 and a potassium level is at 4.3 Noted the patient has undergone previous colectomy for a complicated diverticulitis with colostomy and subsequent reversal. She has COPD. She has skin cancer. She has thyroid disease. 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 She suffers from degenerative arthritis. She has multiple joint surgeries involving the knees and she has undergone total hip replacement and shoulder surgeries. The patient is seen today June 12, 2024 in follow-up on the regular medical floor. She is currently sitting up in bed. Awake and alert in no acute distress. She denies any worsening shortness of breath, cough or congestion. She is maintaining O2 saturations in the 90s on 4 L/min per nasal cannula. She is having some issues with nausea. CT scan of the abdomen revealed fecal debris with narrowing caliber change of the sigmoid colon at the anastomosis. Mild narrowing may be present. Distal sigmoid colon contains diverticulosis without acute diverticulitis. Echocardiogram revealed preserved left ventricular systolic function with ejection fraction 45 to 50%. Glucose 173. She is continued on DuoNeb and elations, Symbicort, Solu-Medrol. Heparin for DVT prophylaxis. Remains on Mucinex and Robitussin for her occasional cough. Objective - Vital Signs Vital signs: Vital Signs Temp 97.9 F 06/12/24 07:10 Pulse 70 06/12/24 13:09 Resp 18 06/12/24 13:09 BP 127/70 06/12/24 07:10 Pulse Ox 93 L 06/12/24 07:10 FiO2 Intake & Output 06/11/24 06/12/24 06/12/24 18:59 06:59 18:59 Intake Total 354 118 Output Total 50 450 Balance 304 118 -450 Intake: Oral 354 118 Output: Urine 450 Emesis 50 Other: Voiding Method Bedside Commode External Catheter # Voids 700 1 # Bowel Movements 0 - Exam GENERAL EXAM: Alert, 83-year-old female patient, on 4 L nasal cannula, fairly comfortable in no apparent distress. HEAD: Normocephalic. EYES: Normal reaction of pupils, equal size. NOSE: Clear with pink turbinates. THROAT: No erythema or exudates. NECK: No masses, no JVD. CHEST: No chest wall deformity. LUNGS: Equal air entry with few scattered rhonchi. CVS: S1 and S2 normal with no audible murmur, regular rhythm. ABDOMEN: No hepatosplenomegaly, normal bowel sounds, no guarding or rigidity. SPINE: No scoliosis or deformity SKIN: No rashes CENTRAL NERVOUS SYSTEM: No focal deficits, tone is normal in all 4 extremities. EXTREMITIES: There is no peripheral edema. No clubbing, no cyanosis. Peripheral pulses are intact. - Labs CBC & Chem 7: 06/11/24 05:42 06/11/24 05:42 Labs: Abnormal Lab Results - Last 24 Hours (Table) 06/11/24 06/11/24 06/12/24 Range/Units 16:50 20:16 06:04 POC Glucose (mg/dL) 188 H 170 H 159 H (70-110) mg/dL 06/12/24 Range/Units 11:40 POC Glucose (mg/dL) 173 H (70-110) mg/dL Assessment and Plan Assessment: Acute exacerbation of COPD with secondary shortness of breath, failed outpatient treatment Acute RSV infection exacerbating her underlying COPD Acute on chronic hypoxic respiratory failure currently on 2 L of oxygen by nasal cannula, utilizes home oxygen at night Degenerative arthritis Previous history of a complicated diverticulitis requiring colectomy, colostomy with subsequent reversal History of third-degree AV block and the patient has a permanent pacemaker in place Degenerative arthritis involving the knees and the hips and the shoulders with multiple orthopedic interventions surgery in the past History of skin cancer removed History of migraines Hypothyroidism and the patient has undergone previous partial thyroidectomy Plan: The patient was seen and evaluated Imaging, echocardiogram, labs and medications reviewed Currently stable on 4 L nasal cannula Titrate down the FiO2 as tolerated Continue DuoNeb inhalations, Symbicort Continue Solu-Medrol Continue Mucinex, Robitussin as needed We will continue to follow I have personally seen and examined the patient, performed the documentation and the assessment and plan as written. Number of minutes spent on the visit: 10 Dictation was produced using [employer]ello[employer] dictation software. Please excuse any grammatical, word or spelling errors.
[2024-06-12 15:22] VITALS: BMI 29.7
[2024-06-12 16:29] LABS: Glucose,Whole Blood 204 mg/dL (70-110)
[2024-06-12] MEDS ORDERED: DEXTROSE 50% SYRINGE 50 ML IVP PRN ×2 (17:09)
[2024-06-12] MEDS: INSULIN LISPRO (HumaLOG) 100 UNIT/ML 10 mL VL SQ SCH (17:25)
[2024-06-12 21:04] LABS: Glucose,Whole Blood 171 mg/dL (70-110)
[2024-06-13 06:24] LABS: Glucose,Whole Blood 152 mg/dL (70-110)
--- NOTE | 2024-06-13 10:56 | XR ---
EXAMINATION TYPE: XR chest 1V portable DATE OF EXAM: 06/13/2024 10:35 AM COMPARISON: 06/10/2024 CLINICAL INDICATION: Female, 83 years old with history of sob, TECHNIQUE: XR chest 1V portable view(s) obtained. FINDINGS: The heart size is enlarged. Pacemaker overlies left chest The pulmonary vasculature is somewhat prominent. The lungs are clear. IMPRESSION: 1. No acute pulmonary process. [facility], , 06/13/2024 10:54 AM
--- NOTE | 2024-06-13 10:58 | P.PN ---
Subjective History of present illness; patient is a 83-year-old lady with past medical history significant for COPD, chronic hypoxic respiratory failure who presented the ER because of worsening shortness of breath. Patient stated that she has been feeling short of breath for the last 2 days. Patient stated that she has been using her breathing treatments but they are not helping her to get better. Shortness of breath is present at rest as on exertion. Patient is also complaining of cough. Patient denies any chest pain. There is no complaint of orthopnea or PND. Patient denies any swelling of feet. There was no complaint of nausea, vomiting or abdominal pain. Because of this worsening shortness of breath, patient brought in the ER Initial lab work done in the ER showed WBC 11.7, hemoglobin 12.1, platelet count 286, sodium 134, potassium 4.4, BUN 23, creatinine 0.80, glucose 113, lactate 2.1, calcium 9.9, troponin 0.026 Influenza A not detected Influenza B not detected RSV detected COVID-19 not detected EKG done in the ER showed heart rate of 88 , no ST segment elevation or depression seen, no T-wave inversions seen. Chest x-ray done in the ER showed cardiomegaly and mild pulm venous congestion Patient admitted to internal medicine service 06/12 Patient still feeling short of breath and still wheezing and coarse crepitation related to her RSV infection She is currently on 2 L oxygen at home she was not on any. Patient also had CAT scan of the abdomen on admission showing possible narrowing of the sigmoid colon, as per patient she does not have problem with defecation right now, she states she had colonoscopy with [facility] about 1.5 years ago. She is covered with IV Solu-Medrol 60 mg. 06/13 Patient had more short of breath and like panic attack last night. Today she feels back to like yesterday. Still complaining mild dyspnea at rest she is still on 4 L oxygen, at home she was not on any oxygen No chest pain but complains from some epigastric discomfort, that is worsened by coughing. And feels like she is bloated. Request something better for coughing. Patient already on Protonix for she is on steroids, will going to increase it to twice daily. Also will give her cough medicine . Patient states that she had colonoscopy done with [facility] few years ago, but 1.5 years ago she had EGD and she assumes is fine because nobody contacted her after that. Chest x-ray done today reviewed by myself pending report showing better variation with no worsening consolidation. She remains on IV Solu-Medrol 60 mg. Patient evaluated by rail bender on admission. Echocardiogram showing ejection fraction of 40 to 45% which is lower than normal level Review of systems CONSTITUTIONAL: No fever, no malaise, no fatigue. GASTROINTESTINAL: No diarrhea, no nausea, no vomiting, no abdominal pain. Normoactive bowel sounds. NEUROLOGICAL: No headaches, no weakness, no numbness. HEMATOLOGICAL: Denies any bleeding or petechiae. GENITOURINARY: Denies any burning micturition, frequency, or urgency. MUSCULOSKELETAL/RHEUMATOLOGICAL: Denies any joint pain, swelling, or any muscle pain. ENDOCRINE: Denies any polyuria or polydipsia. Active Medications Generic Name Dose Route Start Last Admin Trade Name Freq PRN Reason Stop Dose Admin Acetaminophen 325 mg 06/10/24 21:08 06/13/24 06:48 Acetaminophen Tab 325 Mg Tab PO 325 mg Q6HR PRN Administration Fever and/ or Pain Albuterol/Ipratropium 3 ml 06/11/24 12:00 06/13/24 08:17 Ipratropium-Albuterol 3 Ml Neb INHALATION 3 ml RT-QID OMID Administration Benzonatate 200 mg 06/11/24 09:55 06/12/24 21:45 Benzonatate 100 Mg Cap PO 200 mg TID PRN Administration Cough Budesonide/Formoterol Fumarate 2 puff 06/11/24 20:00 06/13/24 08:18 Symbicort 160-4.5 Mcg Inhaler INHALATION 2 puff RT-BID OMID Administration Calcium Carbonate/Glycine 1,000 mg 06/13/24 10:53 Calcium Carbonate 500 Mg Chewable PO QID PRN Heartburn Calcium Carbonate/Glycine 1,000 mg 06/13/24 11:11 Calcium Carbonate 500 Mg Chewable PO 06/13/24 11:12 ONCE ONE Codeine Sulfate 15 mg 06/11/24 12:12 06/11/24 23:44 Codeine 30 Mg Tab PO 15 mg Q8HR PRN Administration Pain Dextrose/Water 25 ml 06/12/24 17:09 Dextrose 50% Syringe 50 Ml IVP PER PROTOCOL PRN Hypoglycemia Protocol Dextrose/Water 50 ml 06/12/24 17:09 Dextrose 50% Syringe 50 Ml IVP PER PROTOCOL PRN Hypoglycemia Protocol Gabapentin 100 mg 06/10/24 21:08 Gabapentin 100 Mg Cap PO DAILY PRN NERVE PAIN Gabapentin 300 mg 06/10/24 21:08 06/10/24 21:35 Gabapentin 300 Mg Cap PO 300 mg QID PRN Administration NERVE PAIN Guaifenesin 600 mg 06/11/24 10:00 06/13/24 07:34 Guaifenesin 600 Mg Tablet.Er PO 600 mg Q12HR OMID Administration Guaifenesin/Dextromethorphan 1 each 06/10/24 21:08 Guaifenesin-Dm 600/30mg 1 Each Tab.Er.12h PO Q12HR PRN Cough Guaifenesin/Dextromethorphan 10 ml 06/13/24 11:00 Guaifenesin-Dm 100-10mg/5ml 10 Ml Cup PO Q6HR OMID Heparin Sodium (Porcine) 5,000 unit 06/12/24 09:00 06/13/24 07:34 Heparin Sodium,Porcine 5,000 Unit/Ml 1 Ml Vial SQ 5,000 unit Q12HR OMID Administration Insulin Human Lispro 0 unit 06/12/24 17:30 06/13/24 06:49 Insulin Lispro (Humalog) 100 Unit/Ml 10 Ml Vl SQ 2 unit ACHS OMID Administration Protocol Levothyroxine Sodium 125 mcg 06/11/24 06:00 06/13/24 06:49 Levothyroxine 125 Mcg Tab PO 125 mcg DAILY@0600 OMID Administration Losartan Potassium 100 mg 06/11/24 09:00 06/13/24 07:34 Losartan 50 Mg Tab PO 100 mg DAILY OMID Administration Methylprednisolone Sodium Succinate 60 mg 06/11/24 00:00 06/13/24 06:49 Methylprednisolone Sod Succi 125 Mg/2 Ml Vial IV 2 mg Q6HR OMID Administration Naloxone HCl 0.2 mg 06/10/24 18:06 Naloxone 0.4 Mg/Ml 1 Ml Vial IVP Q2M PRN Opioid Reversal Nifedipine 90 mg 06/11/24 09:00 06/13/24 07:34 Nifedipine Xl 90 Mg Tab.Er.24 PO 90 mg DAILY OMID Administration Ondansetron HCl 4 mg 06/10/24 18:06 06/12/24 11:36 Ondansetron 4 Mg/2 Ml Vial IVP 4 mg Q8HR PRN Administration Nausea And Vomiting Pantoprazole Sodium 40 mg 06/13/24 21:00 Pantoprazole 40 Mg/10 Ml Vial IVP BID OMID Promethazine HCl 12.5 mg 06/11/24 11:18 06/11/24 23:46 Promethazine 25 Mg Tab PO 12.5 mg Q4HR PRN Administration Nausea And Vomiting Objective - Vital Signs Vital signs: Vital Signs Temp 98.2 F 06/13/24 07:20 Pulse 76 06/13/24 08:37 Resp 19 06/13/24 07:20 BP 115/70 06/13/24 07:20 Pulse Ox 92 L 06/13/24 07:20 FiO2 Intake & Output 06/12/24 06/13/24 06/13/24 18:59 06:59 18:59 Output Total 450 Balance -450 Weight 86.183 kg 86.5 kg Output: Urine 450 Other: Voiding Method Toilet External Catheter # Voids 2 2 - Exam GENERAL: The patient is alert and oriented x3, not in any acute distress. Well developed, well nourished. HEENT: Pupils are round and equally reacting to light. EOMI. No scleral icterus. No conjunctival pallor. Normocephalic, atraumatic. No pharyngeal erythema. No thyromegaly. CARDIOVASCULAR: S1 and S2 present. No murmurs, rubs, or gallops. -PULMONARY: Chest is clear to auscultation, bilateral scattered wheezing , no crackles. ABDOMEN: Soft, nontender, nondistended, normoactive bowel sounds. No palpable organomegaly. MUSCULOSKELETAL: No joint swelling or deformity. EXTREMITIES: No cyanosis, clubbing, or pedal edema. NEUROLOGICAL: Gross neurological examination did not reveal any focal deficits. SKIN: No rashes. no petechiae. - Labs CBC & Chem 7: 06/11/24 05:42 06/11/24 05:42 Labs: Abnormal Lab Results - Last 24 Hours (Table) 06/12/24 06/12/24 06/12/24 Range/Units 11:40 16:27 21:02 POC Glucose (mg/dL) 173 H 204 H 171 H (70-110) mg/dL 06/13/24 Range/Units 06:19 POC Glucose (mg/dL) 152 H (70-110) mg/dL Assessment and Plan Assessment: Acute COPD exacerbation RSV infection Acute hypoxic respiratory failure Mild cardiomyopathy with ejection fraction 40 to 45% Possible narrowing of the sigmoid colon, patient can follow-up as an outpatient currently asymptomatic Obesity with BMI of 29.8 Plan: Continue with bronchodilator Continue with IV Solu-Medrol 60 mg Pulmonary team consult Patient informed about her colon problem and she said she follow-up with Dr. About Labs and medication were reviewed.. Continue same treatment. Continue with symptomatic treatment. Resume home medication. Monitor labs and vitals. DVT and GI prophylaxis. Further recommendations as per clinical course of the patient DVT prophylaxis: Subcutaneous heparin GI Prophylaxis: Pepcid Prognosis is guarded
[2024-06-13] MEDS: guaiFENesin-DM 100-10MG/5ML 10 ML CUP PO SCH (11:08)
[2024-06-13 11:39] LABS: Glucose,Whole Blood 133 mg/dL (70-110)
[2024-06-13] MEDS: CALCIUM CARBONATE 500 MG CHEWABLE PO ONE (11:43)
--- NOTE | 2024-06-13 14:14 | P.PN ---
Subjective Progress Note Date: 06/13/24 This is an 83-year-old female patient, known to have COPD, uses albuterol rescue inhaler only on an as-needed basis. She also has a nebulizer at home. The patient presented with worsening shortness of breath, cough congestion chest tightness or wheezing. Symptoms started approximately 2 weeks ago. She was given amoxicillin, and Medrol Dosepak on outpatient basis. She was given the same treatment approximately 4 days ago. Nevertheless, her condition decompensated and she was getting more short of breath and for that reason she ended up coming into the emergency department. She tested positive for RSV. The chest x-ray shows no acute abnormalities. There are some cardiomegaly and mild pulm vessel congestion. CAT scan of the abdomen and pelvis was also done in the emergency department as the patient was complaining of some vague abdominal pain. The patient was found to have sigmoid diverticulosis without diverticulitis. The patient also had fecal debris's with narrowing caliber matamoros ge of the sigmoid colon as previously described anastomosis. The patient's white cell count is at 8.2 with a hemoglobin 11.6 and a platelet count of 251. BUN is 23 with a creatinine of 0.7 and a sodium level is 137 and a potassium level is at 4.3 Noted the patient has undergone previous colectomy for a complicated diverticulitis with colostomy and subsequent reversal. She has COPD. She has skin cancer. She has thyroid disease. 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 She suffers from degenerative arthritis. She has multiple joint surgeries involving the knees and she has undergone total hip replacement and shoulder surgeries. The patient is seen today June 12, 2024 in follow-up on the regular medical floor. She is currently sitting up in bed. Awake and alert in no acute distress. She denies any worsening shortness of breath, cough or congestion. She is maintaining O2 saturations in the 90s on 4 L/min per nasal cannula. She is having some issues with nausea. CT scan of the abdomen revealed fecal debris with narrowing caliber change of the sigmoid colon at the anastomosis. Mild narrowing may be present. Distal sigmoid colon contains diverticulosis without acute diverticulitis. Echocardiogram revealed preserved left ventricular systolic function with ejection fraction 45 to 50%. Glucose 173. She is continued on DuoNeb and elations, Symbicort, Solu-Medrol. Heparin for DVT prophylaxis. Remains on Mucinex and Robitussin for her occasional cough. The patient is seen today June 13, 2024 in follow-up on the regular medical floor. She is awake and alert in no acute distress. She is maintaining good O2 saturations in the 90s on 4 L/min per nasal cannula. She remains afebrile. Hem odynamically stable. Glucose 133. She remains on DuoNeb and elations, Symbicort, Solu-Medrol. Heparin for DVT prophylaxis. Mucinex for her cough and congestion. Follow-up chest x-ray reveals no acute pulmonary process. Objective - Vital Signs Vital signs: Vital Signs Temp 98.2 F 06/13/24 07:20 Pulse 74 06/13/24 11:59 Resp 19 06/13/24 07:20 BP 115/70 06/13/24 07:20 Pulse Ox 92 L 06/13/24 07:20 FiO2 Intake & Output 06/12/24 06/13/24 06/13/24 18:59 06:59 18:59 Output Total 450 Balance -450 Weight 86.183 kg 86.5 kg Output: Urine 450 Other: Voiding Method Toilet External Catheter # Voids 2 2 - Exam GENERAL EXAM: Alert, anxious 83-year-old female patient, on 4 L nasal cannula, comfortable in no apparent distress. HEAD: Normocephalic. EYES: Normal reaction of pupils, equal size. NOSE: Clear with pink turbinates. THROAT: No erythema or exudates. NECK: No masses, no JVD. CHEST: No chest wall deformity. LUNGS: Equal air entry with few scattered rhonchi. CVS: S1 and S2 normal with no audible murmur, regular rhythm. ABDOMEN: No hepatosplenomegaly, normal bowel sounds, no guarding or rigidity. SPINE: No scoliosis or deformity SKIN: No rashes CENTRAL NERVOUS SYSTEM: No focal deficits, tone is normal in all 4 extremities. EXTREMITIES: There is no peripheral edema. No clubbing, no cyanosis. Peripheral pulses are intact. - Labs CBC & Chem 7: 06/11/24 05:42 06/11/24 05:42 Labs: Abnormal Lab Results - Last 24 Hours (Table) 06/12/24 06/12/24 06/13/24 Range/Units 16:27 21:02 06:19 POC Glucose (mg/dL) 204 H 171 H 152 H (70-110) mg/dL 06/13/24 Range/Units 11:38 POC Glucose (mg/dL) 133 H (70-110) mg/dL Assessment and Plan Assessment: Acute exacerbation of COPD with secondary shortness of breath, failed outpatient treatment. Today's chest x-ray reveals no acute pulmonary process Acute RSV infection exacerbating her underlying COPD Acute on chronic hypoxic respiratory failure currently on 4 L of oxygen by nasal cannula, utilizes home oxygen at night Degenerative arthritis Previous history of a complicated diverticulitis requiring colectomy, colostomy with subsequent reversal History of third-degree AV block and the patient has a permanent pacemaker in place Degenerative arthritis involving the knees and the hips and the shoulders with multiple orthopedic interventions surgery in the past History of skin cancer removed History of migraines Hypothyroidism and the patient has undergone previous partial thyroidectomy Plan: The patient was seen and evaluated Chest x-ray, labs and medications reviewed Currently stable on 4 L nasal cannula Titrate down the FiO2 as tolerated Home oxygen at night May need portable tanks at discharge Continue DuoNeb inhalations, Symbicort Transition to oral prednisone taper I have personally seen and examined the patient, performed the documentation and the assessment and plan as written. Number of minutes spent on the visit: 10 Dictation was produced using [email or web address] dictation software. Please excuse any grammatical, word or spelling errors.
[2024-06-13] MEDS: DOCUSATE 100 MG CAP PO SCH (16:01)
[2024-06-13 16:53] LABS: Glucose,Whole Blood 151 mg/dL (70-110)
[2024-06-13 20:27] LABS: Glucose,Whole Blood 121 mg/dL (70-110)
[2024-06-13] MEDS: polyethylene glycoL 3350 17 GM POWD.PACK PO PRN (20:38)
[2024-06-13] MEDS: guaiFENesin SYRUP 100MG/5ML 200 MG/10 ML CUP PO PRN (20:39)
[2024-06-13] MEDS: PANTOPRAZOLE 40 MG/10 ML VIAL IVP SCH (21:19)
[2024-06-13] MEDS: PANTOPRAZOLE 40 MG TABLET PO SCH (21:23)
[2024-06-14] MEDS: diphenhydrAMINE 25 MG CAP PO PRN (01:00)
[2024-06-14 06:08] LABS: Glucose,Whole Blood 123 mg/dL (70-110)
[2024-06-14] MEDS: predniSONE 10 MG TAB PO SCH (07:45)
--- NOTE | 2024-06-14 10:06 | XR ---
EXAMINATION TYPE: XR shoulder complete RT DATE OF EXAM: 06/14/2024 9:58 AM COMPARISON: None. CLINICAL INDICATION: Female, 83 years old with history of severe pain after sudden movement, Pain TECHNIQUE: XR shoulder complete RT view(s) obtained. FINDINGS: The humeral head articulates with the glenoid. May be some superior subluxation present which may be chronic. The acromio-clavicular junction is normal. No acute fractures or dislocations are evident. A follow up study can be performed 7-10 days from acute trauma for continued pain. MRI can be perfor med if soft tissue evaluation would be of benefit. IMPRESSION: 1. No acute osseous shoulder abnormality. 2. Degenerative changes at the glenoid. [facility], , 06/14/2024 10:04 AM
[2024-06-14] MEDS: HYDROmorphone 0.5 MG/0.5 ML SYRINGE IVP STA (10:58)
[2024-06-14 11:06] LABS: Glucose,Whole Blood 104 mg/dL (70-110)
[2024-06-14] MEDS: HYDROmorphone 0.5 MG/0.5 ML SYRINGE IVP PRN (13:49)
--- NOTE | 2024-06-14 15:14 | XR ---
EXAMINATION TYPE: XR cervical spine comp DATE OF EXAM: 06/14/2024 3:05 PM COMPARISON: None. CLINICAL INDICATION: Female, 83 years old with history of eval, radicular pain RUE, pain TECHNIQUE: 5 view(s) obtained. FINDINGS: Prevertebral space appears normal. There is narrowing of disc height through the cervical spine. This is greater at C5-6 and C6-7. Anterior vertebral body spurring is present at these levels. Some poste rior spurring may be present C4-5 C5-6 C6-7. Posterior spinal lamellar line is intact. Some facet changes are present. Foraminal stenosis is likely present. Oblique views however somewhat limited in positioning. Odontoid is nondiagnostic. IMPRESSION: 1. Degenerative disc changes and spondylosis within the cervical spine greatest C5-6 C6-7. [facility], , 06/14/2024 3:12 PM
--- NOTE | 2024-06-14 15:19 | P.PN ---
Subjective Progress Note Date: 06/14/24 This is an 83-year-old female patient, known to have COPD, uses albuterol rescue inhaler only on an as-needed basis. She also has a nebulizer at home. The patient presented with worsening shortness of breath, cough congestion chest tightness or wheezing. Symptoms started approximately 2 weeks ago. She was given amoxicillin, and Medrol Dosepak on outpatient basis. She was given the same treatment approximately 4 days ago. Nevertheless, her condition decompensated and she was getting more short of breath and for that reason she ended up coming into the emergency department. She tested positive for RSV. The chest x-ray shows no acute abnormalities. There are some cardiomegaly and mild pulm vessel congestion. CAT scan of the abdomen and pelvis was also done in the emergency department as the patient was complaining of some vague abdominal pain. The patient was found to have sigmoid diverticulosis without diverticulitis. The patient also had fecal debris's with narrowing caliber matamoros ge of the sigmoid colon as previously described anastomosis. The patient's white cell count is at 8.2 with a hemoglobin 11.6 and a platelet count of 251. BUN is 23 with a creatinine of 0.7 and a sodium level is 137 and a potassium level is at 4.3 Noted the patient has undergone previous colectomy for a complicated diverticulitis with colostomy and subsequent reversal. She has COPD. She has skin cancer. She has thyroid disease. 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 She suffers from degenerative arthritis. She has multiple joint surgeries involving the knees and she has undergone total hip replacement and shoulder surgeries. The patient is seen today June 12, 2024 in follow-up on the regular medical floor. She is currently sitting up in bed. Awake and alert in no acute distress. She denies any worsening shortness of breath, cough or congestion. She is maintaining O2 saturations in the 90s on 4 L/min per nasal cannula. She is having some issues with nausea. CT scan of the abdomen revealed fecal debris with narrowing caliber change of the sigmoid colon at the anastomosis. Mild narrowing may be present. Distal sigmoid colon contains diverticulosis without acute diverticulitis. Echocardiogram revealed preserved left ventricular systolic function with ejection fraction 45 to 50%. Glucose 173. She is continued on DuoNeb and elations, Symbicort, Solu-Medrol. Heparin for DVT prophylaxis. Remains on Mucinex and Robitussin for her occasional cough. The patient is seen today June 13, 2024 in follow-up on the regular medical floor. She is awake and alert in no acute distress. She is maintaining good O2 saturations in the 90s on 4 L/min per nasal cannula. She remains afebrile. Hem odynamically stable. Glucose 133. She remains on DuoNeb and elations, Symbicort, Solu-Medrol. Heparin for DVT prophylaxis. Mucinex for her cough and congestion. Follow-up chest x-ray reveals no acute pulmonary process. The patient is seen today June 14, 2024 in follow-up on the regular medical floor. She is currently resting comfortably in bed. Awake and alert in no acute distress. She is maintaining good O2 saturations in the 90s on 4 L/min per nasal cannula. Lungs are sounding much clearer. She was having some complaints of right shoulder pain. X-ray shows no acute abnormalities. Spine x-ray revealed degenerative disc changes with spondylosis within the cervical spine greatest at C5-6, C6-7. Glucose 104. She is continued on DuoNeb inhalations, Symbicort, prednisone taper. She remains on Mucinex along with Robitussin as needed. Cough is much improved. Objective - Vital Signs Vital signs: Vital Signs Temp 97.6 F 06/14/24 07:07 Pulse 56 L 06/14/24 07:07 Resp 18 06/14/24 10:43 BP 148/74 06/14/24 07:07 Pulse Ox 96 06/14/24 07:07 FiO2 Intake & Output 06/13/24 06/14/24 06/14/24 18:59 06:59 18:59 Intake Total 120 Balance 120 Weight 87.5 kg Intake: Oral 120 Other: Voiding Method Toilet Toilet External Catheter External Catheter # Voids 1 3 2 - Exam GENERAL EXAM: Alert, anxious 83-year-old female patient, on 4 L nasal cannula, in no apparent distress. HEAD: Normocephalic. EYES: Normal reaction of pupils, equal size. NOSE: Clear with pink turbinates. THROAT: No erythema or exudates. NECK: No masses, no JVD. CHEST: No chest wall deformity. LUNGS: Equal air entry with no crackles, wheeze or rhonchi. CVS: S1 and S2 normal with no audible murmur, regular rhythm. ABDOMEN: No hepatosplenomegaly, normal bowel sounds, no guarding or rigidity. SPINE: No scoliosis or deformity SKIN: No rashes CENTRAL NERVOUS SYSTEM: No focal deficits, tone is normal in all 4 extremities. EXTREMITIES: There is no peripheral edema. No clubbing, no cyanosis. Peripheral pulses are intact. - Labs CBC & Chem 7: 06/11/24 05:42 06/11/24 05:42 Labs: Abnormal Lab Results - Last 24 Hours (Table) 06/13/24 06/13/24 06/14/24 Range/Units 16:52 20:26 06:07 POC Glucose (mg/dL) 151 H 121 H 123 H (70-110) mg/dL Assessment and Plan Assessment: Acute exacerbation of COPD with secondary shortness of breath, failed outpatient treatment. Chest x-ray reveals no acute pulmonary process Acute RSV infection exacerbating her underlying COPD Acute on chronic hypoxic respiratory failure currently on 4 L of oxygen by nasal cannula, utilizes home oxygen at night Degenerative arthritis with right shoulder pain. 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 shoulders with multiple orthopedic interventions surgery in the past History of skin cancer removed History of migraines Hypothyroidism and the patient has undergone previous partial thyroidectomy Plan: The patient was seen and evaluated Imaging, labs and medications reviewed Currently stable on 4 L nasal cannula Titrate down the FiO2 as tolerated Has home oxygen May need portable tanks at discharge Continue DuoNeb inhalations, Symbicort Continue prednisone taper Cleared for discharge from the pulmonary standpoint I have personally seen and examined the patient, performed the documentation and the assessment and plan as written. Number of minutes spent on the visit: 10 Dictation was produced using [employer] dictation software. Please excuse any grammatical, word or spelling errors.
[2024-06-14 16:59] LABS: Glucose,Whole Blood 127 mg/dL (70-110)
[2024-06-14] MEDS: methocarbamoL 500 MG TAB PO PRN (18:54)
--- NOTE | 2024-06-14 20:54 | P.PN ---
Subjective History of present illness; patient is a 83-year-old lady with past medical history significant for COPD, chronic hypoxic respiratory failure who presented the ER because of worsening shortness of breath. Patient stated that she has been feeling short of breath for the last 2 days. Patient stated that she has been using her breathing treatments but they are not helping her to get better. Shortness of breath is present at rest as on exertion. Patient is also complaining of cough. Patient denies any chest pain. There is no complaint of orthopnea or PND. Patient denies any swelling of feet. There was no complaint of nausea, vomiting or abdominal pain. Because of this worsening shortness of breath, patient brought in the ER Initial lab work done in the ER showed WBC 11.7, hemoglobin 12.1, platelet count 286, sodium 134, potassium 4.4, BUN 23, creatinine 0.80, glucose 113, lactate 2.1, calcium 9.9, troponin 0.026 Influenza A not detected Influenza B not detected RSV detected COVID-19 not detected EKG done in the ER showed heart rate of 88 , no ST segment elevation or depression seen, no T-wave inversions seen. Chest x-ray done in the ER showed cardiomegaly and mild pulm venous congestion Patient admitted to internal medicine service 06/12 Patient still feeling short of breath and still wheezing and coarse crepitation related to her RSV infection She is currently on 2 L oxygen at home she was not on any. Patient also had CAT scan of the abdomen on admission showing possible narrowing of the sigmoid colon, as per patient she does not have problem with defecation right now, she states she had colonoscopy with [facility] about 1.5 years ago. She is covered with IV Solu-Medrol 60 mg. 06/13 Patient had more short of breath and like panic attack last night. Today she feels back to like yesterday. Still complaining mild dyspnea at rest she is still on 4 L oxygen, at home she was not on any oxygen No chest pain but complains from some epigastric discomfort, that is worsened by coughing. And feels like she is bloated. Request something better for coughing. Patient already on Protonix for she is on steroids, will going to increase it to twice daily. Also will give her cough medicine . Patient states that she had colonoscopy done with [facility] few years ago, but 1.5 years ago she had EGD and she assumes is fine because nobody contacted her after that. Chest x-ray done today reviewed by myself pending report showing better variation with no worsening consolidation. She remains on IV Solu-Medrol 60 mg. Patient evaluated by remote operations producer on admission. Echocardiogram showing ejection fraction of 40 to 45% which is lower than normal level 06/14 Patient today breathing is improved, she was placed on prednisone 30 mg. She continue on a 3 to 4 L oxygen via nasal cannula. However she was complaining from severe right shoulder pain that she refused to move her right arm on examination. She states this happened after she did she pulled herself up on the toilet. We ordered x-ray of the right shoulder showing degenerative disease. Her orthopedic team are consulted and also ordered cervical spine x-ray showing cervical disease. Will continue with pain management. There is no evidence of acute fracture or dislocation. Patient remains stable and improving may be considered for discharge tomorrow Review of systems CONSTITUTIONAL: No fever, no malaise, no fatigue. GASTROINTESTINAL: No diarrhea, no nausea, no vomiting, no abdominal pain. Normoactive bowel sounds. NEUROLOGICAL: No headaches, no weakness, no numbness. HEMATOLOGICAL: Denies any bleeding or petechiae. GENITOURINARY: Denies any burning micturition, frequency, or urgency. MUSCULOSKELETAL/RHEUMATOLOGICAL: Denies any joint pain, swelling, or any muscle pain. ENDOCRINE: Denies any polyuria or polydipsia. Active Medications Generic Name Dose Route Start Last Admin Trade Name Freq PRN Reason Stop Dose Admin Acetaminophen 325 mg 06/10/24 21:08 06/14/24 07:47 Acetaminophen Tab 325 Mg Tab PO 325 mg Q6HR PRN Administration Fever and/ or Pain Albuterol/Ipratropium 3 ml 06/11/24 12:00 06/14/24 20:10 Ipratropium-Albuterol 3 Ml Neb INHALATION Not Given RT-QID OMID Benzonatate 200 mg 06/11/24 09:55 06/12/24 21:45 Benzonatate 100 Mg Cap PO 200 mg TID PRN Administration Cough Budesonide/Formoterol Fumarate 2 puff 06/11/24 20:00 06/14/24 20:10 Symbicort 160-4.5 Mcg Inhaler INHALATION Not Given RT-BID OMID Calcium Carbonate/Glycine 1,000 mg 06/13/24 10:53 Calcium Carbonate 500 Mg Chewable PO QID PRN Heartburn Codeine Sulfate 15 mg 06/11/24 12:12 06/14/24 05:48 Codeine 30 Mg Tab PO 15 mg Q8HR PRN Administration Pain Dextrose/Water 25 ml 06/12/24 17:09 Dextrose 50% Syringe 50 Ml IVP PER PROTOCOL PRN Hypoglycemia Protocol Dextrose/Water 50 ml 06/12/24 17:09 Dextrose 50% Syringe 50 Ml IVP PER PROTOCOL PRN Hypoglycemia Protocol Diphenhydramine HCl 25 mg 06/13/24 20:35 06/14/24 01:00 Diphenhydramine 25 Mg Cap PO 25 mg TID PRN Administration Allergic Reaction Docusate Sodium 100 mg 06/13/24 21:00 06/14/24 07:45 Docusate 100 Mg Cap PO 100 mg BID OMID Administration Gabapentin 100 mg 06/10/24 21:08 Gabapentin 100 Mg Cap PO DAILY PRN NERVE PAIN Gabapentin 300 mg 06/10/24 21:08 06/10/24 21:35 Gabapentin 300 Mg Cap PO 300 mg QID PRN Administration NERVE PAIN Guaifenesin 600 mg 06/11/24 10:00 06/14/24 07:45 Guaifenesin 600 Mg Tablet.Er PO 600 mg Q12HR OMID Administration Guaifenesin 200 mg 06/13/24 11:05 06/13/24 20:39 Guaifenesin Syrup 100mg/5ml 200 Mg/10 Ml Cup PO 200 mg Q6HR PRN Administration Cough Guaifenesin/Dextromethorphan 1 each 06/10/24 21:08 Guaifenesin-Dm 600/30mg 1 Each Tab.Er.12h PO Q12HR PRN Cough Heparin Sodium (Porcine) 5,000 unit 06/12/24 09:00 06/14/24 07:44 Heparin Sodium,Porcine 5,000 Unit/Ml 1 Ml Vial SQ 5,000 unit Q12HR OMID Administration Hydromorphone HCl 0.5 mg 06/14/24 09:33 06/14/24 19:01 Hydromorphone 0.5 Mg/0.5 Ml Syringe IVP 0.5 mg Q6HR PRN Administration Pain Insulin Human Lispro 0 unit 06/12/24 17:30 06/14/24 17:14 Insulin Lispro (Humalog) 100 Unit/Ml 10 Ml Vl SQ Not Given ACHS [facility] Protocol Levothyroxine Sodium 125 mcg 06/11/24 06:00 06/14/24 06:43 Levothyroxine 125 Mcg Tab PO 125 mcg DAILY@0600 OMID Administration Losartan Potassium 100 mg 06/11/24 09:00 06/14/24 07:45 Losartan 50 Mg Tab PO 100 mg DAILY OMID Administration Methocarbamol 500 mg 06/14/24 18:49 06/14/24 18:54 Methocarbamol 500 Mg Tab PO 500 mg BID PRN Administration Pain Control Naloxone HCl 0.2 mg 06/10/24 18:06 Naloxone 0.4 Mg/Ml 1 Ml Vial IVP Q2M PRN Opioid Reversal Nifedipine 90 mg 06/11/24 09:00 06/14/24 07:45 Nifedipine Xl 90 Mg Tab.Er.24 PO 90 mg DAILY [facility] Administration Ondansetron HCl 4 mg 06/10/24 18:06 06/14/24 19:00 Ondansetron 4 Mg/2 Ml Vial IVP 4 mg Q8HR PRN Administration Nausea And Vomiting Pantoprazole Sodium 40 mg 06/13/24 21:15 06/14/24 17:14 Pantoprazole 40 Mg Tablet PO Not Given AC-BID [facility] Polyethylene Glycol 17 gm 06/13/24 15:36 06/13/24 20:38 Polyethylene Glycol 3350 17 Gm Powd.Pack PO 17 gm DAILY PRN Administration Constipation Prednisone 30 mg 06/14/24 09:00 06/14/24 07:45 Prednisone 10 Mg Tab PO 30 mg DAILY [facility] Administration Promethazine HCl 12.5 mg 06/11/24 11:18 06/11/24 23:46 Promethazine 25 Mg Tab PO 12.5 mg Q4HR PRN Administration Nausea And Vomiting Objective - Vital Signs Vital signs: Vital Signs Temp 99.4 F 06/14/24 13:54 Pulse 88 06/14/24 13:54 Resp 16 06/14/24 13:54 BP 134/71 06/14/24 13:54 Pulse Ox 94 L 06/14/24 13:54 FiO2 Intake & Output 06/14/24 06/14/24 06/15/24 06:59 18:59 06:59 Intake Total 120 Balance 120 Weight 87.5 kg Intake: Oral 120 Other: Voiding Method Toilet Toilet External Catheter External Catheter # Voids 3 2 - Exam GENERAL: The patient is alert and oriented x3, not in any acute distress. Well developed, well nourished. HEENT: Pupils are round and equally reacting to light. EOMI. No scleral icterus. No conjunctival pallor. Normocephalic, atraumatic. No pharyngeal erythema. No thyromegaly. CARDIOVASCULAR: S1 and S2 present. No murmurs, rubs, or gallops. -PULMONARY: Chest is clear to auscultation, bilateral scattered wheezing , no crackles. ABDOMEN: Soft, nontender, nondistended, normoactive bowel sounds. No palpable organomegaly. MUSCULOSKELETAL: No joint swelling or deformity. EXTREMITIES: No cyanosis, clubbing, or pedal edema. NEUROLOGICAL: Gross neurological examination did not reveal any focal deficits. SKIN: No rashes. no petechiae. - Labs CBC & Chem 7: 06/11/24 05:42 06/11/24 05:42 Labs: Abnormal Lab Results - Last 24 Hours (Table) 06/14/24 06/14/24 Range/Units 06:07 16:58 POC Glucose (mg/dL) 123 H 127 H (70-110) mg/dL Assessment and Plan Assessment: Acute COPD exacerbation. Improved Severe right shoulder pain after she pulled up her up on 06/14. X-ray of the right shoulder and cervical spine showing no fracture or dislocation. This could be sprain RSV infection Acute hypoxic respiratory failure Mild cardiomyopathy with ejection fraction 40 to 45% Possible narrowing of the sigmoid colon, patient can follow-up as an outpatient currently asymptomatic Obesity with BMI of 29.8 Plan: Continue with bronchodilator IV Solu-Medrol 60 mg switch to prednisone 30 mg Orthopedic consult. Pain management Pulmonary team consult Patient informed about her colon problem and she said she follow-up with [facility] Labs and medication were reviewed.. Continue same treatment. Continue with symptomatic treatment. Resume home medication. Monitor labs and vitals. DVT and GI prophylaxis. Further recommendations as per clinical course of the patient DVT prophylaxis: Subcutaneous heparin GI Prophylaxis: Pepcid Prognosis is guarded
[2024-06-14] MEDS ORDERED: methocarbamoL 500 MG TAB PO SCH (21:00)
[2024-06-14 21:03] LABS: Glucose,Whole Blood 136 mg/dL (70-110)
[2024-06-15 06:10] LABS: Glucose,Whole Blood 90 mg/dL (70-110)
--- NOTE | 2024-06-15 08:54 | P.CNOR ---
History of Present Illness - [facility] Consult date: 06/15/24 Consult reason: joint pain (Right shoulder, neck pain.) History of present illness: This is an 83-year-old female admitted with respiratory complications secondary to RSV and COPD. She states that since her admission she has been having to pull herself up from the bed and from the commode which is causing pain in her right shoulder. She states that the pain has become severe. She is also having some numbness and tingling down the arm. She does have history of cervical degenerative disc disease and has had pain management procedures in the past. She also has history of partial right shoulder joint replacement about 4 to 5 years ago in [place]. We are consulted for orthopedic evaluation of her right s houlder pain. 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 History of Any Multi-Drug Resistant Organisms: None Reported Past Surgical History: Appendectomy, Hernia Repair, Hysterectomy, Joint Replacement, Orthopedic Surgery, Pacemaker, Tonsillectomy Additional Past Surgical History / Comment(s): LAPROSCOPIC LYSIS OF ADHESIONS WITH COLECTOMY, TTT, pacemaker, skin cancer removal L cheek/skin graft, inguinal hernia repairs x3, BECCA total knee bilateral knee arthroscopies, total hip replacement, total right shoulder. partial thyroidectomy, pain clinic procedures (cervical), bilateral lasik eye surgery for vision correction. right shoulder replacement, bowel resection on 05/13/[address] Hutton rt hip replaced, Past Anesthesia/Blood Transfusion Reactions: No Reported Reaction Type of Cardiac Device: Permanent Pacemaker Device Placement Date:: 2015 Past Psychological History: No Psychological Hx Reported Additional Psychological History / Comment(s): Pt resides alone. She is independent. She has a nebulizer. Smoking Status: Former smoker Past Alcohol Use History: Occasional Additional Past Alcohol Use History / Comment(s): Pt started smoking in 1953 and quit in 3 years ago Past Drug Use History: None Reported - Past Family History Son(s) Family Medical History: Cancer Additional Family Medical History / Comment(s): TESTICULAR CA IN SONS X2 Daughter(s) Family Medical History: Cancer Additional Family Medical History / Comment(s): OVARIAN CANCER Mother Family Medical History: Cancer Additional Family Medical History / Comment(s): STOMACH CANCER Father Family Medical History: No Reported History Additional Family Medical History / Comment(s): Father was healthy Medications and Allergies Home Medications Medication Instructions Recorded Confirmed Type Albuterol Inhaler [Ventolin Hfa 2 puff INHALATION RT-Q4H PRN 05/09/18 06/10/24 History Inhaler] Gabapentin 300 mg PO QID PRN 10/09/22 06/10/24 History Amoxic-Pot Clav 875-125Mg 1 tab PO Q12HR 06/10/24 06/10/24 History [Augmentin 875-125] Fluticasone/Umeclidin/Vilanter 1 puff INHALATION RT-DAILY 06/10/24 06/12/24 History [Trelegy Ellipta 200-62.5-25] Gabapentin [Neurontin] 100 mg PO DAILY PRN 06/10/24 06/10/24 History Levothyroxine Sodium [Synthroid] 125 mcg PO DAILY 06/10/24 06/10/24 History Losartan Potassium 100 mg PO DAILY 06/10/24 06/10/24 History NIFEdipine XL [Procardia Xl] 90 mg PO DAILY 06/10/24 06/10/24 History methylPREDNISolone Dose Pack See Taper PO DIRECTED 06/10/24 06/10/24 History [Medrol Dose Pack] Allergies Allergy/AdvReac Type Severity Reaction Status Date / Time acetaminophen [From [place]] Allergy Nausea & Verified 06/10/24 17:27 Vomiting hydrocodone Allergy Nausea & Verified 06/10/24 17:27 Vomiting hydrocodone bitartrate Allergy Nausea & Verified 06/10/24 17:27 [From Vicodin] Vomiting Iodinated Contrast Media Allergy Nausea & Verified 06/10/24 17:27 [Iodinated Contrast- Oral Vomiting and IV Dye] hydromorphone [From Dilaudid] AdvReac Vomiting Verified 06/10/24 17:27 grass,mold,dust,cats,trees Allergy Unknown Uncoded 10/09/23 14:20 Physical Examination This is a pleasant 83-year-old female in no acute distress. She is alert and oriented x 3. Exam of the head and neck reveal no obvious deformity. She has fairly good cervical spine motion with rotation but does have pain with motion. There is pain with palpation about the right sided paraspinal musculature. There is pain with palpation down into the trapezial muscle on the right. Exam of the upper extremities reveals no obvious deformity. She is unable to actively raise the right arm up. With passive motion attempt she has significant pain which she states is in the shoulder blade. Passively I can get her to about 45 degrees of forward flexion before she stops me due to pain. She has fairly good elbow, wrist and finger motion. Neurovascular status to the upper extremities grossly intact. The remainder of her musculoskeletal exam is unremarkable. Results X-rays of the right shoulder reveal a humeral head surface replacement in place. There is significant elevation of the humeral head indicating chronic rotator cuff pathology. The implant appears to be well-seated in the bone but there may be some early signs of loosening. X-rays of the cervical spine reveal moderate to severe degenerative disc disease and degenerative arthritis. There is moderate to severe facet arthropathy throughout the cervical spine. No obvious fractures noted. - Labs Labs: Abnormal Lab Results - Last 24 Hours (Table) 06/14/24 06/14/24 Range/Units 16:58 21:02 POC Glucose (mg/dL) 127 H 136 H (70-110) mg/dL H & H 06/10/24 06/11/24 Range/Units 16:53 05:42 Hgb 12.1 11.6 (11.4-16.0) gm/dL Hct 38.1 36.9 (34.0-46.0) % Coagulation 06/10/24 Range/Units 16:53 INR 1.0 (<1.2) Result Diagrams: 06/11/24 05:42 06/11/24 05:42 Assessment and Plan (1) Acute exacerbation of chronic obstructive pulmonary disease Current Visit: Yes Status: Acute Code(s): J44.1 - CHRONIC OBSTRUCTIVE PULMONARY DISEASE W (ACUTE) EXACERBATION SNOMED Code(s): 270391421 (2) RSV bronchiolitis Current Visit: Yes Status: Acute Code(s): J21.0 - ACUTE BRONCHIOLITIS DUE TO RESPIRATORY SYNCYTIAL VIRUS SNOMED Code(s): 63947548 (3) Cervical spondylosis without myelopathy Current Visit: No Status: Chronic Code(s): M47.812 - SPONDYLOSIS W/O MYELOPATHY OR RADICULOPATHY, CERVICAL REGION SNOMED Code(s): 810225162 (4) Right shoulder pain Current Visit: No Status: Chronic Code(s): M25.511 - PAIN IN RIGHT SHOULDER SNOMED Code(s): 2693950353 Plan: The clinical and x-ray findings are discussed with the patient and nursing staff. I do believe that there is significant cervical contribution to her right arm and shoulder symptoms. With her current medical condition, it is unlikely she would be a candidate for an epidural injection. However, I will consult pain management to see if there is something they can offer as far as medical pain management for her at this time. I will also order a soft cervical collar for comfort as well as some moist heat to the parascapular region. She may follow-up with our service when she is discharged.
[2024-06-15 11:06] LABS: Glucose,Whole Blood 93 mg/dL (70-110)
[2024-06-15] MEDS: Acetaminophen-Codeine 300-30mg TAB PO STA (12:56)
[2024-06-15] MEDS: LACTULOSE 20 GM/30 ML CUP PO ONE (12:57)
[2024-06-15] MEDS: methocarbamoL 500 MG TAB PO SCH (12:57)
--- NOTE | 2024-06-15 13:13 | US ---
EXAMINATION TYPE: US venous doppler duplex UE RT DATE OF EXAM: 06/15/2024 COMPARISON: NONE CLINICAL INDICATION: Female, 83 years old with history of PAin; Pain right arm.Limited patient has fa ke shoulder can barely move it. TECHNIQUE: Grayscale, color Doppler and spectral Doppler imaging of the upper extremity. SIDE PERFORMED: Right VESSELS IMAGED: IJV Subclavian Vein Axilla Vein Brachial Vein(s) Radial Paired Veins Ulnar Paired Veins Cephalic Vein* Basilic Vein* (*superficial vessels) FINDINGS: Right Arm: Negative for DVT Grayscale, color doppler, spectral doppler imaging performed of the deep veins of the upper extremiti es. IMPRESSION: 1. Right upper extremity ultrasound negative for deep venous thrombosis [facility], , 06/15/2024 1:11 PM
--- NOTE | 2024-06-15 14:15 | P.PAINCN ---
History of Present Illness - History of Present Illness This is a 83-year-old pleasant lady who used to be a patient of our pain clinic for cervical spine originated neck pain and upper extremity pain. Patient has been admitted to the hospital with right shoulder area pain going down to right upper extremities. Pain is located mostly on right shoulder area also radiating down to right upper extremity up to her hands. Patient describes her pain mostly throbbing in character and located in the right shoulder. Patient denies any appreciable increase in neck pain from her chronic condition. Pain intensity goes up to 8-10/10. Describes the pain as throbbing in character in the right shoulder and tingling in right upper extremities. Any movement of the shoulder even slight touch significantly increases her pain. Complete rest and pain medication helps her pain to some extent. Patient also has RSV infection which is being treated and patient is scheduled to go home today. 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 History of Any Multi-Drug Resistant Organisms: None Reported Past Surgical History: Appendectomy, Hernia Repair, Hysterectomy, Joint Replacement, Orthopedic Surgery, Pacemaker, Tonsillectomy Additional Past Surgical History / Comment(s): LAPROSCOPIC LYSIS OF ADHESIONS WITH COLECTOMY, TTT, pacemaker, skin cancer removal L cheek/skin graft, inguinal hernia repairs x3, BECCA total knee bilateral knee arthroscopies, total hip replacement, total right shoulder. partial thyroidectomy, pain clinic procedures (cervical), bilateral lasik eye surgery for vision correction. right shoulder replacement, bowel resection on 05/13/[address] Hutton rt hip replaced, Past Anesthesia/Blood Transfusion Reactions: No Reported Reaction Type of Cardiac Device: Permanent Pacemaker Device Placement Date:: 2015 Past Psychological History: No Psychological Hx Reported Additional Psychological History / Comment(s): Pt resides alone. She is independent. She has a nebulizer. Smoking Status: Former smoker Past Alcohol Use History: Occasional Additional Past Alcohol Use History / Comment(s): Pt started smoking in 1953 and quit in 3 years ago Past Drug Use History: None Reported - Past Family History Son(s) Family Medical History: Cancer Additional Family Medical History / Comment(s): TESTICULAR CA IN SONS X2 Daughter(s) Family Medical History: Cancer Additional Family Medical History / Comment(s): OVARIAN CANCER Mother Family Medical History: Cancer Additional Family Medical History / Comment(s): STOMACH CANCER Father Family Medical History: No Reported History Additional Family Medical History / Comment(s): Father was healthy Medications and Allergies Home Medications Medication Instructions Recorded Confirmed Type Albuterol Inhaler [Ventolin Hfa 2 puff INHALATION RT-Q4H PRN 05/09/18 06/10/24 History Inhaler] Gabapentin 300 mg PO QID PRN 10/09/22 06/10/24 History Fluticasone/Umeclidin/Vilanter 1 puff INHALATION RT-DAILY 06/10/24 06/12/24 History [Trelegy Ellipta 200-62.5-25] Gabapentin [Neurontin] 100 mg PO DAILY PRN 06/10/24 06/10/24 History Levothyroxine Sodium [Synthroid] 125 mcg PO DAILY 06/10/24 06/10/24 History Losartan Potassium 100 mg PO DAILY 06/10/24 06/10/24 History NIFEdipine XL [Procardia XL] 90 mg PO DAILY 06/10/24 06/10/24 History methylPREDNISolone Dose Pack See Taper PO DIRECTED 06/10/24 06/10/24 History [Medrol Dose Pack] Acetaminophen Tab [Tylenol] 325 mg PO Q6HR PRN #60 tab 06/15/24 Rx Acetaminophen-Codeine 300-30mg 1 each PO Q6HR PRN 7 Days #25 tab 06/15/24 Rx [Tylenol w/codeine #3] Benzonatate [Tessalon Perles] 200 mg PO TID PRN 7 Days #21 cap 06/15/24 Rx Docusate [Colace] 100 mg PO BID #60 cap 06/15/24 Rx Lactulose [Cephulac] 30 gm PO BID PRN 7 Days #300 ml 06/15/24 Rx Lidocaine 4% Cream [Lmx 4] 1 applic TOPICAL ONCE 7 Days #7 06/15/24 Rx each Pantoprazole [Protonix] 40 mg PO AC-BID #60 tab 06/15/24 Rx guaiFENesin-DM 600/30MG [Mucinex 1 each PO Q12HR PRN 7 Days #14 tab 06/15/24 Rx Dm] methocarbamoL [Robaxin] 500 mg PO QID 10 Days #40 tab 06/15/24 Rx predniSONE 10 mg PO DIRECTED #24 tab 06/15/24 Rx Allergies Allergy/AdvReac Type Severity Reaction Status Date / Time acetaminophen [From [place]] Allergy Nausea & Verified 06/10/24 17:27 Vomiting hydrocodone Allergy Nausea & Verified 06/10/24 17:27 Vomiting hydrocodone bitartrate Allergy Nausea & Verified 06/10/24 17:27 [From Vicodin] Vomiting Iodinated Contrast Media Allergy Nausea & Verified 06/10/24 17:27 [Iodinated Contrast- Oral Vomiting and IV Dye] hydromorphone [From Dilaudid] AdvReac Vomiting Verified 06/10/24 17:27 grass,mold,dust,cats,trees Allergy Unknown Uncoded 10/09/23 14:20 Physical Exam Vitals: Vital Signs Temp Pulse Pulse Pulse Resp BP Pulse Ox 06/15/24 11:45 79 06/15/24 11:15 70 06/15/24 11:05 76 06/15/24 10:49 20 06/15/24 07:48 76 06/15/24 07:36 74 06/15/24 07:00 100.4 F H 90 18 155/68 90 L 06/15/24 02:10 98.7 F 76 21 111/67 92 L 06/14/24 21:13 73 17 06/14/24 20:19 98.7 F 73 17 104/60 92 L Pulse Ox 06/15/24 11:45 84 L 06/15/24 11:15 06/15/24 11:05 06/15/24 10:49 06/15/24 07:48 06/15/24 07:36 06/15/24 07:00 06/15/24 02:10 06/14/24 21:13 06/14/24 20:19 Intake and Output 06/14/24 06/15/24 06/15/24 22:59 06:59 14:59 Intake Total 250 Output Total 450 Balance -200 Intake: Oral 250 Output: Urine 450 Other: Voiding Method Toilet Toilet External Catheter External Catheter # Voids 1 1 Weight 87 kg Physical Examinations : -Constitutiona : Cooperative , not in acute distress . -HEENT : nech : supple , no Lymphadenopathy , normal thyroid size . : eyes : no ptosis , no icterus, no photophobia . - neurologic : Cranial nerve II to XII intact , no focal ne urological deffecit . -psychatric : alert , oriented X 3 , appropriate affect , intact judgment and insight . -Lymphatic : no Lymphadenopathy . - musculoskeltal : Cervical Spine motor stregnth in the deltoid and biceps, normal right side , normal Left side motor stregnth biceps and the wrist extensors normal right side ,normal left side . motor stregnth in the triceps muscle . Unable to assess deep tendon reflexes normal at the biceps , normal at Brachioradialis , normal at triceps. cervical facet loading test: Mildly positive Bilaterally Spurling test= negative Cervical spine flexion extension rotat ion within normal limit and nonpainful. Mild tenderness over the paraspinal muscles in the cervical spine. Right shoulder joint: Significant tenderness even with light touch over the right shoulder area mostly anterior part. Shoulder joint exam is limited secondary to excruciating pain with movement. Did not notice any redness or signs of inflammation in right shoulder area. Results CBC & Chem 7: 06/11/24 05:42 06/11/24 05:42 Labs: Abnormal Lab Results - Last 24 Hours (Table) 06/14/24 06/14/24 Range/Units 16:58 21:02 POC Glucose (mg/dL) 127 H 136 H (70-110) mg/dL Assessment and Plan Assessment: 1.Right shoulder joint arthropathy. 2. Cervical spondylosis. 3. Cervical radiculopathy. Plan: Had a long discussion with the patient regarding her source of pain which is a combination of shoulder joint arthropathy and pain of cervical spine origin including radiculopathy. Patient is going home in few hours. Would suggest continue current pain medications. Will see the patient as an outpatient in our pain clinic. Gave patient clinic phone number and requested her to make an appointment. Time with Patient: Greater than 30 PQRS Measure Charge Sheet - Pain Location Generalized Non-Pharmacological Interventions: Darkened Room, Position/Reposition Pharmacological Interventions: PRN Medication Pain Comment: Per patient pain in LT shoulder which is chronic PQRS Narrative: Smoking Status Current some day smoker Blood Pressure [Left Arm] 155/68 Blood Pressure 107/71 Pain Intensity [Generalized] 8 Pain Intensity 9 Pain Scale Used Non Verbal Pain Indicator Scale Used Numeric (1 - 10) Home Medications: Ambulatory Orders Albuterol Inhaler [Ventolin Hfa Inhaler] 2 puff INHALATION RT-Q4H PRN 05/09/18 Gabapentin 300 mg PO QID PRN 10/09/22 Fluticasone/Umeclidin/Vilanter [Trelegy Ellipta 200-62.5-25] 1 puff INHALATION RT-DAILY 06/10/24 Gabapentin [Neurontin] 100 mg PO DAILY PRN 06/10/24 Levothyroxine Sodium [Synthroid] 125 mcg PO DAILY 06/10/24 Losartan Potassium 100 mg PO DAILY 06/10/24 NIFEdipine XL [Procardia XL] 90 mg PO DAILY 06/10/24 methylPREDNISolone Dose Pack [Medrol Dose Pack] See Taper PO DIRECTED 06/10/24 Acetaminophen Tab [Tylenol] 325 mg PO Q6HR PRN #60 tab 06/15/24 Acetaminophen-Codeine 300-30mg [Tylenol w/codeine #3] 1 each PO Q6HR PRN 7 Days #25 tab 06/15/24 Benzonatate [Tessalon Perles] 200 mg PO TID PRN 7 Days #21 cap 06/15/24 Docusate [Colace] 100 mg PO BID #60 cap 06/15/24 Lactulose [Cephulac] 30 gm PO BID PRN 7 Days #300 ml 06/15/24 Lidocaine 4% Cream [Lmx 4] 1 applic TOPICAL ONCE 7 Days #7 each 06/15/24 Pantoprazole [Protonix] 40 mg PO AC-BID #60 tab 06/15/24 guaiFENesin-DM 600/30MG [Mucinex Dm] 1 each PO Q12HR PRN 7 Days #14 tab 06/15/24 methocarbamoL [Robaxin] 500 mg PO QID 10 Days #40 tab 06/15/24 predniSONE 10 mg PO DIRECTED #24 tab 06/15/24
[2024-06-15] MEDS: SODIUM CHLORIDE 0.9% 500 ML 250 ML IV ONE (16:05)
[2024-06-15] MEDS: LIDOCAINE 4% CREAM 5 GM TUBE TOPICAL ONE (16:07)
[2024-06-15] MEDS: SODIUM CHLORIDE 0.9% 500 ML 500 ML IV ONE (16:09)
--- NOTE | 2024-06-15 16:48 | XR ---
EXAMINATION TYPE: XR chest 1V portable DATE OF EXAM: 06/15/2024 4:24 PM COMPARISON: 06/13/2024 CLINICAL INDICATION: Female, 83 years old with history of Shortness of Breath, TECHNIQUE: XR chest 1V portable view(s) obtained. FINDINGS: The heart size is normal. Pacemaker overlies left chest. The pulmonary vasculature is normal. Developing retrocardiac infiltrate is present. There is some silhouetting of the left diaphragm. Right shoulder prosthesis present. IMPRESSION: 1. Retrocardiac infiltrate. Correlate for pneumonia. Follow-up recommended. [facility], , 06/15/2024 4:46 PM
[2024-06-15 17:09] LABS: Glucose,Whole Blood 204 mg/dL (70-110)
--- NOTE | 2024-06-15 18:38 | P.PN ---
Subjective History of present illness; patient is a 83-year-old lady with past medical history significant for COPD, chronic hypoxic respiratory failure who presented the ER because of worsening shortness of breath. Patient stated that she has been feeling short of breath for the last 2 days. Patient stated that she has been using her breathing treatments but they are not helping her to get better. Shortness of breath is present at rest as on exertion. Patient is also complaining of cough. Patient denies any chest pain. There is no complaint of orthopnea or PND. Patient denies any swelling of feet. There was no complaint of nausea, vomiting or abdominal pain. Because of this worsening shortness of breath, patient brought in the ER Initial lab work done in the ER showed WBC 11.7, hemoglobin 12.1, platelet count 286, sodium 134, potassium 4.4, BUN 23, creatinine 0.80, glucose 113, lactate 2.1, calcium 9.9, troponin 0.026 Influenza A not detected Influenza B not detected RSV detected COVID-19 not detected EKG done in the ER showed heart rate of 88 , no ST segment elevation or depression seen, no T-wave inversions seen. Chest x-ray done in the ER showed cardiomegaly and mild pulm venous congestion Patient admitted to internal medicine service 06/12 Patient still feeling short of breath and still wheezing and coarse crepitation related to her RSV infection She is currently on 2 L oxygen at home she was not on any. Patient also had CAT scan of the abdomen on admission showing possible narrowing of the sigmoid colon, as per patient she does not have problem with defecation right now, she states she had colonoscopy with [facility] about 1.5 years ago. She is covered with IV Solu-Medrol 60 mg. 06/13 Patient had more short of breath and like panic attack last night. Today she feels back to like yesterday. Still complaining mild dyspnea at rest she is still on 4 L oxygen, at home she was not on any oxygen No chest pain but complains from some epigastric discomfort, that is worsened by coughing. And feels like she is bloated. Request something better for coughing. Patient already on Protonix for she is on steroids, will going to increase it to twice daily. Also will give her cough medicine . Patient states that she had colonoscopy done with [facility] few years ago, but 1.5 years ago she had EGD and she assumes is fine because nobody contacted her after that. Chest x-ray done today reviewed by myself pending report showing better variation with no worsening consolidation. She remains on IV Solu-Medrol 60 mg. Patient evaluated by watch and clock repair clerk on admission. Echocardiogram showing ejection fraction of 40 to 45% which is lower than normal level 06/14 Patient today breathing is improved, she was placed on prednisone 30 mg. She continue on a 3 to 4 L oxygen via nasal cannula. However she was complaining from severe right shoulder pain that she refused to move her right arm on examination. She states this happened after she did she pulled herself up on the toilet. We ordered x-ray of the right shoulder showing degenerative disease. Her orthopedic team are consulted and also ordered cervical spine x-ray showing cervical disease. Will continue with pain management. There is no evidence of acute fracture or dislocation. Patient remains stable and improving may be considered for discharge tomorrow 06/15 Patient today mentation was stable, her breathing was stable initially. She developed low-grade temperature 100.4 Her right shoulder pain was thought most likely secondary to degenerative disc disease related to her right shoulder and cervical spine. Ultrasound of the right upper extremity was negative for acute process or DVT We discussed the case with pulmonary team. Patient was stable for discharge as well as orthopedic team recommended outpatient follow-up However patient when she was trying to get up to go to the bathroom she dropped her blood pressure. Also her oxygen requirements went up a little bit from 4 up to 6 L/min. Therefore a bolus of 250 normal saline was provided for her. Also patient does not go to [facility] upon discharge she wants to go home with home health care. Will continue monitoring the patient today and recheck labs in the morning Patient dropping blood pressure today could be multifactorial from her laying in bed, deconditioning lowering the dose of steroids using pain medication and muscle relaxants pulmonary with contribution. Patient currently on losartan 100 mg and nifedipine 90 mg, we will lower the dose of nifedipine down to 60 mg Also repeat chest x-ray today showing similar findings but also retrocardiac infiltrate suspicious for pneumonia. Zosyn was started. Review of systems CONSTITUTIONAL: No fever, no malaise, no fatigue. GASTROINTESTINAL: No diarrhea, no nausea, no vomiting, no abdominal pain. Normoactive bowel sounds. NEUROLOGICAL: No headaches, no weakness, no numbness. HEMATOLOGICAL: Denies any bleeding or petechiae. GENITOURINARY: Denies any burning micturition, frequency, or urgency. MUSCULOSKELETAL/RHEUMATOLOGICAL: Denies any joint pain, swelling, or any muscle pain. ENDOCRINE: Denies any polyuria or polydipsia. Active Medications Generic Name Dose Route Start Last Admin Trade Name Freq PRN Reason Stop Dose Admin Acetaminophen 325 mg 06/10/24 21:08 06/15/24 08:45 Acetaminophen Tab 325 Mg Tab PO 325 mg Q6HR PRN Administration Fever and/ or Mild Pain Acetaminophen/Codeine Phosphate 1 each 06/15/24 11:25 Acetaminophen-Codeine 300-30mg Tab PO Q6HR PRN Moderate Pain (Scale 4 to 6) Albuterol/Ipratropium 3 ml 06/11/24 12:00 06/15/24 16:50 Ipratropium-Albuterol 3 Ml Neb INHALATION 3 ml RT-QID OMID Administration Benzonatate 200 mg 06/11/24 09:55 06/12/24 21:45 Benzonatate 100 Mg Cap PO 200 mg TID PRN Administration Cough Budesonide/Formoterol Fumarate 2 puff 06/11/24 20:00 06/15/24 07:36 Symbicort 160-4.5 Mcg Inhaler INHALATION 2 puff RT-BID OMID Administration Calcium Carbonate/Glycine 1,000 mg 06/13/24 10:53 Calcium Carbonate 500 Mg Chewable PO QID PRN Heartburn Codeine Sulfate 15 mg 06/11/24 12:12 06/14/24 05:48 Codeine 30 Mg Tab PO 15 mg Q8HR PRN Administration Pain Dextrose/Water 25 ml 06/12/24 17:09 Dextrose 50% Syringe 50 Ml IVP PER PROTOCOL PRN Hypoglycemia Protocol Dextrose/Water 50 ml 06/12/24 17:09 Dextrose 50% Syringe 50 Ml IVP PER PROTOCOL PRN Hypoglycemia Protocol Diphenhydramine HCl 25 mg 06/13/24 20:35 06/14/24 01:00 Diphenhydramine 25 Mg Cap PO 25 mg TID PRN Administration Allergic Reaction Docusate Sodium 100 mg 06/13/24 21:00 06/15/24 07:35 Docusate 100 Mg Cap PO 100 mg BID OMID Administration Gabapentin 100 mg 06/10/24 21:08 Gabapentin 100 Mg Cap PO DAILY PRN NERVE PAIN Gabapentin 300 mg 06/10/24 21:08 06/14/24 23:54 Gabapentin 300 Mg Cap PO 300 mg QID PRN Administration NERVE PAIN Guaifenesin 600 mg 06/11/24 10:00 06/15/24 07:35 Guaifenesin 600 Mg Tablet.Er PO 600 mg Q12HR OMID Administration Guaifenesin 200 mg 06/13/24 11:05 06/13/24 20:39 Guaifenesin Syrup 100mg/5ml 200 Mg/10 Ml Cup PO 200 mg Q6HR PRN Administration Cough Guaifenesin/Dextromethorphan 1 each 06/10/24 21:08 Guaifenesin-Dm 600/30mg 1 Each Tab.Er.12h PO Q12HR PRN Cough Heparin Sodium (Porcine) 5,000 unit 06/12/24 09:00 06/15/24 07:36 Heparin Sodium,Porcine 5,000 Unit/Ml 1 Ml Vial SQ 5,000 unit Q12HR OMID Administration Hydromorphone HCl 0.5 mg 06/14/24 09:33 06/15/24 15:41 Hydromorphone 0.5 Mg/0.5 Ml Syringe IVP 0.5 mg Q6HR PRN Administration Severe Pain (Scale 7 to 10) Insulin Human Lispro 0 unit 06/12/24 17:30 06/15/24 18:18 Insulin Lispro (Humalog) 100 Unit/Ml 10 Ml Vl SQ Not Given ACHS OMID Protocol Lactulose 30 gm 06/15/24 11:26 Lactulose 20 Gm/30 Ml Cup PO BID PRN Constipation Levothyroxine Sodium 125 mcg 06/11/24 06:00 06/15/24 06:55 Levothyroxine 125 Mcg Tab PO 125 mcg DAILY@0600 OMID Administration Losartan Potassium 100 mg 06/11/24 09:00 06/15/24 07:35 Losartan 50 Mg Tab PO 100 mg DAILY OMID Administration Methocarbamol 500 mg 06/15/24 13:00 06/15/24 18:20 Methocarbamol 500 Mg Tab PO 500 mg QID OMID Administration Naloxone HCl 0.2 mg 06/10/24 18:06 Naloxone 0.4 Mg/Ml 1 Ml Vial IVP Q2M PRN Opioid Reversal Nifedipine 90 mg 06/11/24 09:00 06/15/24 07:36 Nifedipine Xl 90 Mg Tab.Er.24 PO 90 mg DAILY OMID Administration Ondansetron HCl 4 mg 06/10/24 18:06 06/15/24 15:53 Ondansetron 4 Mg/2 Ml Vial IVP 4 mg Q8HR PRN Administration Nausea And Vomiting Pantoprazole Sodium 40 mg 06/13/24 21:15 06/15/24 18:20 Pantoprazole 40 Mg Tablet PO 40 mg AC-BID OMID Administration Polyethylene Glycol 17 gm 06/13/24 15:36 06/13/24 20:38 Polyethylene Glycol 3350 17 Gm Powd.Pack PO 17 gm DAILY PRN Administration Constipation Prednisone 30 mg 06/14/24 09:00 06/15/24 07:35 Prednisone 10 Mg Tab PO 30 mg DAILY OMID Administration Promethazine HCl 12.5 mg 06/11/24 11:18 06/11/24 23:46 Promethazine 25 Mg Tab PO 12.5 mg Q4HR PRN Administration Nausea And Vomiting Objective - Vital Signs Vital signs: Vital Signs Temp 98.1 F 06/15/24 15:30 Pulse 82 06/15/24 15:30 Resp 17 06/15/24 15:30 BP 127/66 06/15/24 15:30 Pulse Ox 91 L 06/15/24 15:30 FiO2 Intake & Output 06/14/24 06/15/24 06/15/24 18:59 06:59 18:59 Intake Total 120 250 Output Total 450 Balance 120 -200 Weight 87 kg Intake: Oral 120 250 Output: Urine 450 Other: Voiding Method Toilet Toilet Toilet External Catheter External Catheter External Catheter # Voids 2 1 3 - Exam GENERAL: The patient is alert and oriented x3, not in any acute distress. Well developed, well nourished. HEENT: Pupils are round and equally reacting to light. EOMI. No scleral icterus. No conjunctival pallor. Normocephalic, atraumatic. No pharyngeal erythema. No thyromegaly. CARDIOVASCULAR: S1 and S2 present. No murmurs, rubs, or gallops. -PULMONARY: Chest is clear to auscultation, bilateral scattered wheezing , no crackles. ABDOMEN: Soft, nontender, nondistended, normoactive bowel sounds. No palpable organomegaly. MUSCULOSKELETAL: No joint swelling or deformity. EXTREMITIES: No cyanosis, clubbing, or pedal edema. NEUROLOGICAL: Gross neurological examination did not reveal any focal deficits. SKIN: No rashes. no petechiae. - Labs CBC & Chem 7: 06/11/24 05:42 06/11/24 05:42 Labs: Abnormal Lab Results - Last 24 Hours (Table) 06/14/24 06/14/24 Range/Units 16:58 21:02 POC Glucose (mg/dL) 127 H 136 H (70-110) mg/dL Assessment and Plan Assessment: Acute COPD exacerbation. Improved Retrocardiac pneumonia, Severe right shoulder pain after she pulled up her up on 06/14. X-ray of the right shoulder and cervical spine showing no fracture or dislocation. This could be sprain Postural hypotension RSV infection Acute hypoxic respiratory failure Mild cardiomyopathy with ejection fraction 40 to 45% Possible narrowing of the sigmoid colon, patient can follow-up as an outpatient currently asymptomatic Obesity with BMI of 29.8 Plan: Continue with bronchodilator IV Solu-Medrol 60 mg switch to prednisone 30 mg Orthopedic consult. Pain management Start Zosyn Pulmonary team consult Continue losartan 100 mg, lower the dose of nifedipine 90 down to 60 mg and check blood pressure tomorrow Patient informed about her colon problem and she said she follow-up with . About Labs and medication were reviewed.. Continue same treatment. Continue with symptomatic treatment. Resume home medication. Monitor labs and vitals. DVT and GI prophylaxis. Further recommendations as per clinical course of the patient DVT prophylaxis: Subcutaneous heparin GI Prophylaxis: Pepcid Prognosis is guarded
[2024-06-15] MEDS: PIPERACILLIN-TAZOBACTAM 3.375 GM in SODIUM CHLORIDE 0.9% 100 ML IVPB SCH (22:08)
[2024-06-15] MEDS: Acetaminophen-Codeine 300-30mg TAB PO PRN (22:09)
[2024-06-15 22:33] LABS: Glucose,Whole Blood 178 mg/dL (70-110)
[2024-06-16 06:42] LABS: Glucose,Whole Blood 131 mg/dL (70-110)
--- NOTE | 2024-06-16 10:04 | P.PN ---
Subjective History of present illness; patient is a 83-year-old lady with past medical history significant for COPD, chronic hypoxic respiratory failure who presented the ER because of worsening shortness of breath. Patient stated that she has been feeling short of breath for the last 2 days. Patient stated that she has been using her breathing treatments but they are not helping her to get better. Shortness of breath is present at rest as on exertion. Patient is also complaining of cough. Patient denies any chest pain. There is no complaint of orthopnea or PND. Patient denies any swelling of feet. There was no complaint of nausea, vomiting or abdominal pain. Because of this worsening shortness of breath, patient brought in the ER Initial lab work done in the ER showed WBC 11.7, hemoglobin 12.1, platelet count 286, sodium 134, potassium 4.4, BUN 23, creatinine 0.80, glucose 113, lactate 2.1, calcium 9.9, troponin 0.026 Influenza A not detected Influenza B not detected RSV detected COVID-19 not detected EKG done in the ER showed heart rate of 88 , no ST segment elevation or depression seen, no T-wave inversions seen. Chest x-ray done in the ER showed cardiomegaly and mild pulm venous congestion Patient admitted to internal medicine service 06/12 Patient still feeling short of breath and still wheezing and coarse crepitation related to her RSV infection She is currently on 2 L oxygen at home she was not on any. Patient also had CAT scan of the abdomen on admission showing possible narrowing of the sigmoid colon, as per patient she does not have problem with defecation right now, she states she had colonoscopy with About about 1.5 years ago. She is covered with IV Solu-Medrol 60 mg. 06/13 Patient had more short of breath and like panic attack last night. Today she feels back to like yesterday. Still complaining mild dyspnea at rest she is still on 4 L oxygen, at home she was not on any oxygen No chest pain but complains from some epigastric discomfort, that is worsened by coughing. And feels like she is bloated. Request something better for coughing. Patient already on Protonix for she is on steroids, will going to increase it to twice daily. Also will give her cough medicine . Patient states that she had colonoscopy done with About few years ago, but 1.5 years ago she had EGD and she assumes is fine because nobody contacted her after that. Chest x-ray done today reviewed by myself pending report showing better variation with no worsening consolidation. She remains on IV Solu-Medrol 60 mg. Patient evaluated by barn manager on admission. Echocardiogram showing ejection fraction of 40 to 45% which is lower than normal level 06/14 Patient today breathing is improved, she was placed on prednisone 30 mg. She continue on a 3 to 4 L oxygen via nasal cannula. However she was complaining from severe right shoulder pain that she refused to move her right arm on examination. She states this happened after she did she pulled herself up on the toilet. We ordered x-ray of the right shoulder showing degenerative disease. Her orthopedic team are consulted and also ordered cervical spine x-ray showing cervical disease. Will continue with pain management. There is no evidence of acute fracture or dislocation. Patient remains stable and improving may be considered for discharge tomorrow 06/15 Patient today mentation was stable, her breathing was stable initially. She developed low-grade temperature 100.4 Her right shoulder pain was thought most likely secondary to degenerative disc disease related to her right shoulder and cervical spine. Ultrasound of the right upper extremity was negative for acute process or DVT We discussed the case with pulmonary team. Patient was stable for discharge as well as orthopedic team recommended outpatient follow-up However patient when she was trying to get up to go to the bathroom she dropped her blood pressure. Also her oxygen requirements went up a little bit from 4 up to 6 L/min. Therefore a bolus of 250 normal saline was provided for her. Also patient does not go to [facility] upon discharge she wants to go home with home health care. Will continue monitoring the patient today and recheck labs in the morning Patient dropping blood pressure today could be multifactorial from her laying in bed, deconditioning lowering the dose of steroids using pain medication and muscle relaxants pulmonary with contribution. Patient currently on losartan 100 mg and nifedipine 90 mg, we will lower the dose of nifedipine down to 60 mg Also repeat chest x-ray today showing similar findings but also retrocardiac infiltrate suspicious for pneumonia. Zosyn was started. 06/16 Patient was going to be discharged yesterday when she developed more hypoxia and postural hypotension. Patient brought back to the bed. Her oxygen requirement increased from 4 up to 6 L and patient currently getting 6 L/min via high flow nasal cannula. Patient mildly tachypneic patient herself denies any chest pain or worsening coughing and she wants to go home. She has ongoing right shoulder pain and a sling will try to be placed for her. Repeated chest x-ray yesterday showing possible retrocardiac infiltrates. No fever. No new leukocytosis but pro- Calcitonin and jumped up from 0.06 up to 2.5. Patient was started on Zosyn and pulmonary team consulted. Also I talked to the her daughter who is a VEHICLE [employer]ST [employer]INEER and explained the management plan for her and she verbalized understanding and acceptance Review of systems CONSTITUTIONAL: No fever, no malaise, no fatigue. GASTROINTESTINAL: No diarrhea, no nausea, no vomiting, no abdominal pain. Normoactive bowel sounds. NEUROLOGICAL: No headaches, no weakness, no numbness. HEMATOLOGICAL: Denies any bleeding or petechiae. GENITOURINARY: Denies any burning micturition, frequency, or urgency. MUSCULOSKELETAL/RHEUMATOLOGICAL: Denies any joint pain, swelling, or any muscle pain. ENDOCRINE: Denies any polyuria or polydipsia. Active Medications Generic Name Dose Route Start Last Admin Trade Name Freq PRN Reason Stop Dose Admin Acetaminophen 325 mg 06/10/24 21:08 06/15/24 08:45 Acetaminophen Tab 325 Mg Tab PO 325 mg Q6HR PRN Administration Fever and/ or Mild Pain Acetaminophen/Codeine Phosphate 1 each 06/15/24 11:25 06/16/24 04:49 Acetaminophen-Codeine 300-30mg Tab PO 1 each Q6HR PRN Administration Moderate Pain (Scale 4 to 6) Albuterol/Ipratropium 3 ml 06/11/24 12:00 06/16/24 09:49 Ipratropium-Albuterol 3 Ml Neb INHALATION 3 ml RT-QID OMID Administration Benzonatate 200 mg 06/11/24 09:55 06/12/24 21:45 Benzonatate 100 Mg Cap PO 200 mg TID PRN Administration Cough Budesonide/Formoterol Fumarate 2 puff 06/11/24 20:00 06/16/24 09:49 Symbicort 160-4.5 Mcg Inhaler INHALATION 2 puff RT-BID OMID Administration Calcium Carbonate/Glycine 1,000 mg 06/13/24 10:53 Calcium Carbonate 500 Mg Chewable PO QID PRN Heartburn Codeine Sulfate 15 mg 06/11/24 12:12 06/14/24 05:48 Codeine 30 Mg Tab PO 15 mg Q8HR PRN Administration Pain Dextrose/Water 25 ml 06/12/24 17:09 Dextrose 50% Syringe 50 Ml IVP PER PROTOCOL PRN Hypoglycemia Protocol Dextrose/Water 50 ml 06/12/24 17:09 Dextrose 50% Syringe 50 Ml IVP PER PROTOCOL PRN Hypoglycemia Protocol Diphenhydramine HCl 25 mg 06/13/24 20:35 06/14/24 01:00 Diphenhydramine 25 Mg Cap PO 25 mg TID PRN Administration Allergic Reaction Docusate Sodium 100 mg 06/13/24 21:00 06/16/24 09:25 Docusate 100 Mg Cap PO 100 mg BID OMID Administration Gabapentin 100 mg 06/10/24 21:08 Gabapentin 100 Mg Cap PO DAILY PRN NERVE PAIN Gabapentin 300 mg 06/10/24 21:08 06/15/24 22:09 Gabapentin 300 Mg Cap PO 300 mg QID PRN Administration NERVE PAIN Guaifenesin 600 mg 06/11/24 10:00 06/16/24 09:25 Guaifenesin 600 Mg Tablet.Er PO 600 mg Q12HR OMID Administration Guaifenesin 200 mg 06/13/24 11:05 06/13/24 20:39 Guaifenesin Syrup 100mg/5ml 200 Mg/10 Ml Cup PO 200 mg Q6HR PRN Administration Cough Guaifenesin/Dextromethorphan 1 each 06/10/24 21:08 Guaifenesin-Dm 600/30mg 1 Each Tab.Er.12h PO Q12HR PRN Cough Heparin Sodium (Porcine) 5,000 unit 06/12/24 09:00 06/16/24 09:24 Heparin Sodium,Porcine 5,000 Unit/Ml 1 Ml Vial SQ 5,000 unit Q12HR OMID Administration Hydromorphone HCl 0.5 mg 06/14/24 09:33 06/16/24 09:38 Hydromorphone 0.5 Mg/0.5 Ml Syringe IVP 0.5 mg Q6HR PRN Administration Severe Pain (Scale 7 to 10) Piperacillin Sod/Tazobactam 100 mls @ 25 mls/hr 06/15/24 20:00 06/16/24 04:33 Sod 3.375 gm/ Sodium Chloride IVPB 25 mls/hr Q8H OMID Administration Protocol Insulin Human Lispro 0 unit 06/12/24 17:30 06/16/24 06:45 Insulin Lispro (Humalog) 100 Unit/Ml 10 Ml Vl SQ Not Given ACHS [facility] Protocol Lactulose 30 gm 06/15/24 11:26 Lactulose 20 Gm/30 Ml Cup PO BID PRN Constipation Levothyroxine Sodium 125 mcg 06/11/24 06:00 06/16/24 04:49 Levothyroxine 125 Mcg Tab PO 125 mcg DAILY@0600 OMID Administration Losartan Potassium 100 mg 06/11/24 09:00 06/16/24 09:25 Losartan 50 Mg Tab PO 100 mg DAILY OMID Administration Methocarbamol 500 mg 06/15/24 13:00 06/16/24 09:25 Methocarbamol 500 Mg Tab PO 500 mg QID OMID Administration Naloxone HCl 0.2 mg 06/10/24 18:06 Naloxone 0.4 Mg/Ml 1 Ml Vial IVP Q2M PRN Opioid Reversal Nifedipine 60 mg 06/16/24 09:00 06/16/24 09:26 Nifedipine Xl 60 Mg Tab.Er.24 PO 60 mg DAILY OMID Administration Ondansetron HCl 4 mg 06/10/24 18:06 06/16/24 09:43 Ondansetron 4 Mg/2 Ml Vial IVP 4 mg Q8HR PRN Administration Nausea And Vomiting Pantoprazole Sodium 40 mg 06/13/24 21:15 06/16/24 06:55 Pantoprazole 40 Mg Tablet PO 40 mg AC-BID OMID Administration Polyethylene Glycol 17 gm 06/13/24 15:36 06/16/24 04:33 Polyethylene Glycol 3350 17 Gm Powd.Pack PO 17 gm DAILY PRN Administration Constipation Prednisone 30 mg 06/14/24 09:00 06/16/24 09:25 Prednisone 10 Mg Tab PO 30 mg DAILY OMID Administration Promethazine HCl 12.5 mg 06/11/24 11:18 06/11/24 23:46 Promethazine 25 Mg Tab PO 12.5 mg Q4HR PRN Administration Nausea And Vomiting Objective - Vital Signs Vital signs: Vital Signs Temp 99.1 F 06/16/24 07:42 Pulse 85 06/16/24 10:01 Resp 20 06/16/24 10:01 BP 110/62 06/16/24 07:42 Pulse Ox 90 L 06/16/24 09:49 FiO2 Intake & Output 06/15/24 06/16/24 06/16/24 18:59 06:59 18:59 Intake Total 350 4017 Output Total 450 1 Balance -100 4016 Weight 68.5 kg Intake: Oral 350 4017 Output: Urine 450 1 Other: Voiding Method Toilet External Catheter # Voids 3 2 - Exam GENERAL: The patient is alert and oriented x3, not in any acute distress. Well developed, well nourished. HEENT: Pupils are round and equally reacting to light. EOMI. No scleral icterus. No conjunctival pallor. Normocephalic, atraumatic. No pharyngeal erythema. No thyromegaly. CARDIOVASCULAR: S1 and S2 present. No murmurs, rubs, or gallops. -PULMONARY: Chest is clear to auscultation, bilateral scattered wheezing , no crackles. ABDOMEN: Soft, nontender, nondistended, normoactive bowel sounds. No palpable organomegaly. MUSCULOSKELETAL: No joint swelling or deformity. EXTREMITIES: No cyanosis, clubbing, or pedal edema. NEUROLOGICAL: Gross neurological examination did not reveal any focal deficits. SKIN: No rashes. no petechiae. - Labs CBC & Chem 7: 06/11/24 05:42 06/11/24 05:42 Labs: Abnormal Lab Results - Last 24 Hours (Table) 06/15/24 06/15/24 06/16/24 Range/Units 17:08 22:31 05:19 POC Glucose (mg/dL) 204 H 178 H (70-110) mg/dL Procalcitonin 2.55 H (0.02-0.50) ng/mL 06/16/24 Range/Units 06:40 POC Glucose (mg/dL) 131 H (70-110) mg/dL Procalcitonin (0.02-0.50) ng/mL Assessment and Plan Assessment: Acute COPD exacerbation. Improved Retrocardiac pneumonia, Severe right shoulder pain after she pulled up her up on 06/14. X-ray of the right shoulder and cervical spine showing no fracture or dislocation. This could be sprain Postural hypotension RSV infection Acute hypoxic respiratory failure Mild cardiomyopathy with ejection fraction 40 to 45% Possible narrowing of the sigmoid colon, patient can follow-up as an outpatient currently asymptomatic Obesity with BMI of 29.8 Plan: Continue with bronchodilator IV Solu-Medrol 60 mg switch to prednisone 30 mg Orthopedic consult. Pain management Continue with Zosyn Pulmonary team consult Continue losartan 100 mg, lower the dose of nifedipine 90 down to 60 mg and check blood pressure tomorrow Patient informed about her colon problem and she said she follow-up with . About Labs and medication were reviewed.. Continue same treatment. Continue with symptomatic treatment. Resume home medication. Monitor labs and vitals. DVT and GI prophylaxis. Further recommendations as per clinical course of the francisco milligan DVT prophylaxis: Subcutaneous heparin GI Prophylaxis: Pepcid Prognosis is guarded
[2024-06-16 12:03] LABS: Glucose,Whole Blood 144 mg/dL (70-110)
--- NOTE | 2024-06-16 15:42 | P.PN ---
Subjective Progress Note Date: 06/16/24 This is an 83-year-old female patient, known to have COPD, uses albuterol rescue inhaler only on an as-needed basis. She also has a nebulizer at home. The patient presented with worsening shortness of breath, cough congestion chest tightness or wheezing. Symptoms started approximately 2 weeks ago. She was given amoxicillin, and Medrol Dosepak on outpatient basis. She was given the same treatment approximately 4 days ago. Nevertheless, her condition decompensated and she was getting more short of breath and for that reason she ended up coming into the emergency department. She tested positive for RSV. The chest x-ray shows no acute abnormalities. There are some cardiomegaly and mild pulm vessel congestion. CAT scan of the abdomen and pelvis was also done in the emergency department as the patient was complaining of some vague abdominal pain. The patient was found to have sigmoid diverticulosis without diverticulitis. The patient also had fecal debris's with narrowing caliber matamoros ge of the sigmoid colon as previously described anastomosis. The patient's white cell count is at 8.2 with a hemoglobin 11.6 and a platelet count of 251. BUN is 23 with a creatinine of 0.7 and a sodium level is 137 and a potassium level is at 4.3 Noted the patient has undergone previous colectomy for a complicated diverticulitis with colostomy and subsequent reversal. She has COPD. She has skin cancer. She has thyroid disease. 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 She suffers from degenerative arthritis. She has multiple joint surgeries involving the knees and she has undergone total hip replacement and shoulder surgeries. The patient is seen today June 12, 2024 in follow-up on the regular medical floor. She is currently sitting up in bed. Awake and alert in no acute distress. She denies any worsening shortness of breath, cough or congestion. She is maintaining O2 saturations in the 90s on 4 L/min per nasal cannula. She is having some issues with nausea. CT scan of the abdomen revealed fecal debris with narrowing caliber change of the sigmoid colon at the anastomosis. Mild narrowing may be present. Distal sigmoid colon contains diverticulosis without acute diverticulitis. Echocardiogram revealed preserved left ventricular systolic function with ejection fraction 45 to 50%. Glucose 173. She is continued on DuoNeb and elations, Symbicort, Solu-Medrol. Heparin for DVT prophylaxis. Remains on Mucinex and Robitussin for her occasional cough. The patient is seen today June 13, 2024 in follow-up on the regular medical floor. She is awake and alert in no acute distress. She is maintaining good O2 saturations in the 90s on 4 L/min per nasal cannula. She remains afebrile. Hem odynamically stable. Glucose 133. She remains on DuoNeb and elations, Symbicort, Solu-Medrol. Heparin for DVT prophylaxis. Mucinex for her cough and congestion. Follow-up chest x-ray reveals no acute pulmonary process. The patient is seen today June 14, 2024 in follow-up on the regular medical floor. She is currently resting comfortably in bed. Awake and alert in no acute distress. She is maintaining good O2 saturations in the 90s on 4 L/min per nasal cannula. Lungs are sounding much clearer. She was having some complaints of right shoulder pain. X-ray shows no acute abnormalities. Spine x-ray revealed degenerative disc changes with spondylosis within the cervical spine greatest at C5-6, C6-7. Glucose 104. She is continued on DuoNeb inhalations, Symbicort, prednisone taper. She remains on Mucinex along with Robitussin as needed. Cough is much improved. The patient is seen today June 16, 2024 in follow-up on the regular medical floor. She is currently awake and alert in no acute distress. Still having some left shoulder and neck pain. She is having higher oxygen requirements currently on 6 L high flow nasal cannula. She is afebrile. Hemodynamically s table. Chest x-ray reveals a retrocardiac infiltrate, possible pneumonia. Her initial procalcitonin was 0.06, currently 2.55. Glucose 144. She has been initiated on Zosyn. Continued on DuoNeb inhalations, Symbicort, prednisone taper. Heparin for DVT prophylaxis. Objective - Vital Signs Vital signs: Vital Signs Temp 98.4 F 06/16/24 13:23 Pulse 90 06/16/24 13:23 Resp 17 06/16/24 13:23 BP 97/58 06/16/24 13:23 Pulse Ox 90 L 06/16/24 13:23 FiO2 Intake & Output 06/15/24 06/16/24 06/16/24 18:59 06:59 18:59 Intake Total 350 4017 Output Total 450 1 Balance -100 4016 Weight 68.5 kg Intake: Oral 350 4017 Output: Urine 450 1 Other: Voiding Method Toilet Bedside Commode External Catheter # Voids 3 2 1 - Exam GENERAL EXAM: Alert, 83-year-old female patient, resting in bed, on 6 L nasal cannula, in no apparent distress. HEAD: Normocephalic. EYES: Normal reaction of pupils, equal size. NOSE: Clear with pink turbinates. THROAT: No erythema or exudates. NECK: No masses, no JVD. CHEST: No chest wall deformity. LUNGS: Equal air entry with faint crackles in the left base. CVS: S1 and S2 normal with no audible murmur, regular rhythm. ABDOMEN: No hepatosplenomegaly, normal bowel sounds, no guarding or rigidity. SPINE: No scoliosis or deformity SKIN: No rashes CENTRAL NERVOUS SYSTEM: No focal deficits, tone is normal in all 4 extremities. EXTREMITIES: There is no peripheral edema. No clubbing, no cyanosis. Peripheral pulses are intact. - Labs CBC & Chem 7: 06/11/24 05:42 06/11/24 05:42 Labs: Abnormal Lab Results - Last 24 Hours (Table) 06/15/24 06/15/24 06/16/24 Range/Units 17:08 22:31 05:19 POC Glucose (mg/dL) 204 H 178 H (70-110) mg/dL Procalcitonin 2.55 H (0.02-0.50) ng/mL 06/16/24 06/16/24 Range/Units 06:40 12:02 POC Glucose (mg/dL) 131 H 144 H (70-110) mg/dL Procalcitonin (0.02-0.50) ng/mL Assessment and Plan Assessment: Acute exacerbation of COPD with secondary shortness of breath, failed outpatient treatment. Chest x-ray now showing retrocardiac infiltrate. Procalcitonin initially negative at 0.06, currently 2.55. Initiated on Zosyn Acute RSV infection exacerbating her underlying COPD Acute on chronic hypoxic respiratory failure currently on 6 L of oxygen by nasal cannula, utilizes home oxygen at night Degenerative arthritis with right shoulder pain. 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 shoulders with multiple orthopedic interventions surgery in the past History of skin cancer removed History of migraines Hypothyroidism and the patient has undergone previous partial thyroidectomy Plan: The patient was seen and evaluated Chest x-ray, labs and medications reviewed Procalcitonin now positive Initiated on Zosyn Currently on 6 L nasal cannula Will obtain a CT scan of the chest without contrast Continue DuoNeb inhalations, Symbicort Continue prednisone taper Pain management consulted for shoulder pain I have personally seen and examined the patient, performed the documentation and the assessment and plan as written. Number of minutes spent on the visit: 10 Dictation was produced using [employer] dictation software. Please excuse any grammatical, word or spelling errors.
--- NOTE | 2024-06-16 15:55 | CT ---
EXAMINATION TYPE: CT chest wo con DATE OF EXAM: 06/16/2024 11:57 AM COMPARISON: 07/08/2013 CLINICAL INDICATION: Female, 83 years old with history of Hypoxemia, Hypoxemia, RSV positive. TECHNIQUE: Axial images were obtained at 5 mm thick sections. Reconstructed images are reviewed on [employer] computer in the coronal plane. Contrast used: mL of , (none if empty) Oral contrast used: (none if empty) CT DLP: 520.6 mGycm, Automated exposure control for dose reduction was used. FINDINGS: Portion of the thyroid visualized is normal. There is a small left pleural effusion. Minimal right pleural effusion may be present. Consolidations are within the dependent lung bases bilaterally. There is a 1.2 x 2.6 cm pleural-based density posterior lateral left upper lung field. Correlate for atelectasis. Underlying mass should be considered and follow-up is recommended.1 No enlarged mediastinal or hilar adenopathy is evident. The ascending aorta diameter at the level o f the main pulmonary artery is 3.4 cm. The main pulmonary artery diameter at the bifurcation is 3.[address] sections are obtained through the upper abdomen. Abdomen is essentially unremarkable. IMPRESSION: 1. Small left and minimal right pleural effusions with adjacent compressive atelectasis. 2. Pleural-based density posterior lateral left upper lung field. Atelectasis, pneumonia, mass should be considered. Follow-up to clearing is recommended. [facility], , 06/16/2024 3:52 PM
[2024-06-16 17:19] LABS: Glucose,Whole Blood 175 mg/dL (70-110)
[2024-06-16 21:13] LABS: Glucose,Whole Blood 144 mg/dL (70-110)
[2024-06-16] MEDS: LACTULOSE 20 GM/30 ML CUP PO PRN (21:22)
[2024-06-17 06:10] LABS: Glucose,Whole Blood 218 mg/dL (70-110)
[2024-06-17 11:19] LABS: Glucose,Whole Blood 144 mg/dL (70-110)
--- NOTE | 2024-06-17 14:32 | P.PN ---
Subjective Progress Note Date: 06/17/24 This is an 83-year-old female patient, known to have COPD, uses albuterol rescue inhaler only on an as-needed basis. She also has a nebulizer at home. The patient presented with worsening shortness of breath, cough congestion chest tightness or wheezing. Symptoms started approximately 2 weeks ago. She was given amoxicillin, and Medrol Dosepak on outpatient basis. She was given the same treatment approximately 4 days ago. Nevertheless, her condition decompensated and she was getting more short of breath and for that reason she ended up coming into the emergency department. She tested positive for RSV. The chest x-ray shows no acute abnormalities. There are some cardiomegaly and mild pulm vessel congestion. CAT scan of the abdomen and pelvis was also done in the emergency department as the patient was complaining of some vague abdominal pain. The patient was found to have sigmoid diverticulosis without diverticulitis. The patient also had fecal debris's with narrowing caliber matamoros ge of the sigmoid colon as previously described anastomosis. The patient's white cell count is at 8.2 with a hemoglobin 11.6 and a platelet count of 251. BUN is 23 with a creatinine of 0.7 and a sodium level is 137 and a potassium level is at 4.3 Noted the patient has undergone previous colectomy for a complicated diverticulitis with colostomy and subsequent reversal. She has COPD. She has skin cancer. She has thyroid disease. 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 She suffers from degenerative arthritis. She has multiple joint surgeries involving the knees and she has undergone total hip replacement and shoulder surgeries. The patient is seen today June 12, 2024 in follow-up on the regular medical floor. She is currently sitting up in bed. Awake and alert in no acute distress. She denies any worsening shortness of breath, cough or congestion. She is maintaining O2 saturations in the 90s on 4 L/min per nasal cannula. She is having some issues with nausea. CT scan of the abdomen revealed fecal debris with narrowing caliber change of the sigmoid colon at the anastomosis. Mild narrowing may be present. Distal sigmoid colon contains diverticulosis without acute diverticulitis. Echocardiogram revealed preserved left ventricular systolic function with ejection fraction 45 to 50%. Glucose 173. She is continued on DuoNeb and elations, Symbicort, Solu-Medrol. Heparin for DVT prophylaxis. Remains on Mucinex and Robitussin for her occasional cough. The patient is seen today June 13, 2024 in follow-up on the regular medical floor. She is awake and alert in no acute distress. She is maintaining good O2 saturations in the 90s on 4 L/min per nasal cannula. She remains afebrile. Hem odynamically stable. Glucose 133. She remains on DuoNeb and elations, Symbicort, Solu-Medrol. Heparin for DVT prophylaxis. Mucinex for her cough and congestion. Follow-up chest x-ray reveals no acute pulmonary process. The patient is seen today June 14, 2024 in follow-up on the regular medical floor. She is currently resting comfortably in bed. Awake and alert in no acute distress. She is maintaining good O2 saturations in the 90s on 4 L/min per nasal cannula. Lungs are sounding much clearer. She was having some complaints of right shoulder pain. X-ray shows no acute abnormalities. Spine x-ray revealed degenerative disc changes with spondylosis within the cervical spine greatest at C5-6, C6-7. Glucose 104. She is continued on DuoNeb inhalations, Symbicort, prednisone taper. She remains on Mucinex along with Robitussin as needed. Cough is much improved. The patient is seen today June 16, 2024 in follow-up on the regular medical floor. She is currently awake and alert in no acute distress. Still having some left shoulder and neck pain. She is having higher oxygen requirements currently on 6 L high flow nasal cannula. She is afebrile. Hemodynamically s table. Chest x-ray reveals a retrocardiac infiltrate, possible pneumonia. Her initial procalcitonin was 0.06, currently 2.55. Glucose 144. She has been initiated on Zosyn. Continued on DuoNeb inhalations, Symbicort, prednisone taper. Heparin for DVT prophylaxis. The patient is seen today June 17, 2024 in follow-up on the regular medical floor. She is currently resting in bed. Awake and alert in no acute distress. Still having some neck and shoulder discomfort. She denies any worsening shortness of breath, cough or congestion. She is maintaining O2 saturations in the 90s on 6 L high flow nasal cannula. She remains on Zosyn. Remains on DuoNeb inhalations, Symbicort, prednisone taper. Continued on Mucinex. Heparin for DVT prophylaxis. Glucose 144. Objective - Vital Signs Vital signs: Vital Signs Temp 97.5 F L 06/17/24 07:25 Pulse 76 06/17/24 12:46 Resp 18 06/17/24 07:25 BP 119/70 06/17/24 07:25 Pulse Ox 91 L 06/17/24 07:25 FiO2 Intake & Output 06/16/24 06/17/24 06/17/24 18:59 06:59 18:59 Intake Total 200 Balance 200 Weight 72.5 kg Intake: Oral 200 Other: Voiding Method Bedside Commode Bedside Commode # Voids 1 1 0 - Exam GENERAL EXAM: Alert, 83-year-old female, on 6 L nasal cannula, in no apparent distress. HEAD: Normocephalic. EYES: Normal reaction of pupils, equal size. NOSE: Clear with pink turbinates. THROAT: No erythema or exudates. NECK: No masses, no JVD. CHEST: No chest wall deformity. LUNGS: Equal air entry with faint crackles in the left base. CVS: S1 and S2 normal with no audible murmur, regular rhythm. ABDOMEN: No hepatosplenomegaly, normal bowel sounds, no guarding or rigidity. SPINE: No scoliosis or deformity SKIN: No rashes CENTRAL NERVOUS SYSTEM: No focal deficits, tone is normal in all 4 extremities. EXTREMITIES: There is no peripheral edema. No clubbing, no cyanosis. Peripheral pulses are intact. - Labs CBC & Chem 7: 06/11/24 05:42 06/11/24 05:42 Labs: Abnormal Lab Results - Last 24 Hours (Table) 06/16/24 06/16/24 06/17/24 Range/Units 17:18 21:11 06:09 POC Glucose (mg/dL) 175 H 144 H 218 H (70-110) mg/dL 06/17/24 Range/Units 11:15 POC Glucose (mg/dL) 144 H (70-110) mg/dL Assessment and Plan Assessment: Acute exacerbation of COPD with secondary shortness of breath, failed outpatient treatment. Chest x-ray now showing retrocardiac infiltrate. Procalcitonin initially negative at 0.06, currently 2.55. Initiated on Zosyn. CT scan of the chest revealed small and minimal right pleural effusions with adjacent compressive atelectasis. Pleural base density posterior lateral left upper lung field. Atelectasis versus pneumonia versus mass. Acute RSV infection exacerbating her underlying COPD Acute on chronic hypoxic respiratory failure currently on 6 L of oxygen by nasal cannula, utilizes home oxygen at night Degenerative arthritis with right shoulder pain. 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 shoulders with multiple orthopedic interventions surgery in the past History of skin cancer removed History of migraines Hypothyroidism and the patient has undergone previous partial thyroidectomy Plan: The patient was seen and evaluated CT scan of the chest, labs and medications reviewed Continued on Zosyn Currently on 6 L nasal cannula Titrate down the FiO2 as tolerated Continue DuoNeb inhalations, Symbicort Continue prednisone taper Heparin for DVT prophylaxis I have personally seen and examined the patient, performed the documentation and the assessment and plan as written. Number of minutes spent on the visit: 10 Dictation was produced using [employer] dictation software. Please excuse any grammatical, word or spelling errors.
--- NOTE | 2024-06-17 15:26 | P.PN ---
Progress Note - Text Interval History: History of present illness; patient is a 83-year-old lady with past medical history significant for COPD, chronic hypoxic respiratory failure who presented the ER because of worsening shortness of breath. Patient stated that she has been feeling short of breath for the last 2 days. Patient stated that she has been using her breathing treatments but they are not helping her to get better. Shortness of breath is present at rest as on exertion. Patient is also complaining of cough. Patient denies any chest pain. There is no complaint of orthopnea or PND. Patient denies any swelling of feet. There was no complaint of nausea, vomiting or abdominal pain. Because of this worsening shortness of breath, patient brought in the ER Initial lab work done in the ER showed WBC 11.7, hemoglobin 12.1, platelet count 286, sodium 134, potassium 4.4, BUN 23, creatinine 0.80, glucose 113, lactate 2.1, calcium 9.9, troponin 0.026 Influenza A not detected Influenza B not detected RSV detected COVID-19 not detected EKG done in the ER showed heart rate of 88 , no ST segment elevation or depression seen, no T-wave inversions seen. Chest x-ray done in the ER showed cardiomegaly and mild pulm venous congestion Patient admitted to internal medicine service 06/12 Patient still feeling short of breath and still wheezing and coarse crepitation related to her RSV infection She is currently on 2 L oxygen at home she was not on any. Patient also had CAT scan of the abdomen on admission showing possible narrowing of the sigmoid colon, as per patient she does not have problem with defecation right now, she states she had colonoscopy with [facility] about 1.5 years ago. She is covered with IV Solu-Medrol 60 mg. 06/13 Patient had more short of breath and like panic attack last night. Today she feels back to like yesterday. Still complaining mild dyspnea at rest she is still on 4 L oxygen, at home she was not on any oxygen No chest pain but complains from some epigastric discomfort, that is worsened by coughing. And feels like she is bloated. Request something better for coughing. Patient already on Protonix for she is on steroids, will going to increase it to twice daily. Also will give her cough medicine . Patient states that she had colonoscopy done with [facility] few years ago, but 1.5 years ago she had EGD and she assumes is fine because nobody contacted her after that. Chest x-ray done today reviewed by myself pending report showing better variation with no worsening consolidation. She remains on IV Solu-Medrol 60 mg. Patient evaluated by smoking pipe repairer on admission. Echocardiogram showing ejection fraction of 40 to 45% which is lower than normal level 06/14 Patient today breathing is improved, she was placed on prednisone 30 mg. She continue on a 3 to 4 L oxygen via nasal cannula. However she was complaining from severe right shoulder pain that she refused to move her right arm on examination. She states this happened after she did she pulled herself up on the toilet. We ordered x-ray of the right shoulder showing degenerative disease. Her orthopedic team are consulted and also ordered cervical spine x-ray showing cervical disease. Will continue with pain management. There is no evidence of acute fracture or dislocation. Patient remains stable and improving may be considered for discharge tomorrow 06/15 Patient today mentation was stable, her breathing was stable initially. She developed low-grade temperature 100.4 Her right shoulder pain was thought most likely secondary to degenerative disc disease related to her right shoulder and cervical spine. Ultrasound of the right upper extremity was negative for acute process or DVT We discussed the case with pulmonary team. Patient was stable for discharge as well as orthopedic team recommended outpatient follow-up However patient when she was trying to get up to go to the bathroom she dropped her blood pressure. Also her oxygen requirements went up a little bit from 4 up to 6 L/min. Therefore a bolus of 250 normal saline was provided for her. Also patient does not go to [facility] upon discharge she wants to go home with home health care. Will continue monitoring the patient today and recheck labs in the morning Patient dropping blood pressure today could be multifactorial from her laying in bed, deconditioning lowering the dose of steroids using pain medication and muscle relaxants pulmonary with contribution. Patient currently on losartan 100 mg and nifedipine 90 mg, we will lower the dose of nifedipine down to 60 mg Also repeat chest x-ray today showing similar findings but also retrocardiac infiltrate suspicious for pneumonia. Zosyn was started. 06/16 Patient was going to be discharged yesterday when she developed more hypoxia and postural hypotension. Patient brought back to the bed. Her oxygen requirement increased from 4 up to 6 L and patient currently getting 6 L/min via high flow nasal cannula. Patient mildly tachypneic patient herself denies any chest pain or worsening coughing and she wants to go home. She has ongoing right shoulder pain and a sling will try to be placed for her. Repeated chest x-ray yesterday showing possible retrocardiac infiltrates. No fever. No new leukocytosis but pro- Calcitonin and jumped up from 0.06 up to 2.5. Patient was started on Zosyn and pulmonary team consulted. Also I talked to the her daughter who is a [employer] and explained the management plan for her and she verbalized understanding and acceptance 06/17--- patient was seen and examined today. Currently on 6 L of oxygen. Remains on Zosyn for pneumonia, remains on inhaler/bronchodilator protocol, prednisone taper. Remains afebrile, heart rate 75, respiratory rate 20, blood pressure soft 96/58, saturating 90% on 6 L. Procalcitonin was 2.55 yesterday. Pulmonary following. Assessment and plan: Acute COPD exacerbation. Improved RSV infection: Acute hypoxic respiratory failure: Retrocardiac pneumonia, Severe right shoulder pain after she pulled up her up on 06/14. X-ray of the right shoulder and cervical spine showing no fracture or dislocation. This could be sprain Postural hypotension Mild cardiomyopathy with ejection fraction 40 to 45% Possible narrowing of the sigmoid colon, patient to follow-up as an outpatient currently asymptomatic Obesity with BMI of 29.8 History of [address] in place: Plan: Continue with bronchodilator IV Solu-Medrol 60 mg switch to prednisone taper. Orthopedic consult. Pain management consulted Continue with Zosyn Pulmonary team consult Continue losartan 100 mg, lower the dose of nifedipine 90 down to 60 mg and check blood pressure tomorrow Patient informed about her colon problem and she said she follow-up with [facility] DVT prophylaxis: Subcutaneous heparin Disposition: PT/OT consulted. Monitor vital signs and labs Labs and medication were reviewed. Continue same treatment. Further recommendations as per clinical course of the patient PHYSICAL EXAMINATION: GENERAL: NAD HEENT: EOMI, Sclerae anicteric, Moist Mucous membranes Neck: Supple, Non tender, No JVD PULMONARY: Equal breath souds B/L, No wheezing, + crackles. CARDIOVASCULAR: S1, S2 present. No murmurs, rubs, or gallops. ABDOMEN: Soft, nontender, nondistended, normoactive bowel sounds. No guarding or rebound tenderness. MUSCULOSKELETAL: No edema, No cyanosis. No clubbing. Normal ROM. Intact peripheral pulses. NEUROLOGICAL: CN 2-12 grossly intact. No FND Skin: No Rash REVIEW OF SYSTEMS: CONSTITUTIONAL: No fever or chills. CARDIOVASCULAR: No chest pain, palpitations or syncope. PULMONARY: Complains of shortness of breath, cough, GASTROINTESTINAL: No nausea, vomiting, diarrhea, abdominal pain. : No Dysuria, urgency, frequency. Extremities: No edema. Complain of right shoulder pain, multiple joint pains. NEUROLOGICAL: No headaches, no weakness, or numbness Dictation was produced using [employer] software. please excuse any grammatical, word or spelling errors.
[2024-06-17 16:32] LABS: Glucose,Whole Blood 186 mg/dL (70-110)
[2024-06-17 20:45] LABS: Glucose,Whole Blood 205 mg/dL (70-110)
[2024-06-18 07:04] LABS: Glucose,Whole Blood 156 mg/dL (70-110)
[2024-06-18 09:44] LABS: HCT 33.1 % (37.2-46.3); HGB 10.4 g/dL (12.0-15.0); MCH 30.3 pg (27.0-32.0); MCHC 31.4 g/dL (32.0-37.0); MCV 96.5 FL (80.0-97.0); Mean Platelet Volume 11.1 FL (9.5-12.2); NRBC Per 100 WBC 0 X 10*3/uL (0.00-0.01); Platelet Count 176 X 10*3/uL (140-440); RBC 3.43 X 10*6/uL (4.10-5.20); RDW 15.8 % (11.5-14.5); WBC 19.46 X 10*3/uL (4.50-10.00)
[2024-06-18 09:57] LABS: BUN/Creat Ratio 24.12 Ratio (12.00-20.00); Blood Urea Nitrogen 19.3 mg/dL (9.0-27.0); Calcium 7.9 mg/dL (8.7-10.3); Carbon Dioxide 28.2 mmol/L (21.6-31.8); Chloride 98 mmol/L (96-109); Glucose 167 mg/dL (70-110); Potassium 4.4 mmol/L (3.5-5.5); Sodium 134 mmol/L (135-145)
[2024-06-18 10:35] LABS: Basophils # (A) 0.09 X 10*3/uL (0.00-0.10); Basophils % (A) 0.5 %; Eosinophils # (A) 0.02 X 10*3/uL (0.04-0.35); Eosinophils % (A) 0.1 %; Lymphocytes # (A) 0.58 X 10*3/uL (0.90-5.00); Monocytes # (A) 1.54 X 10*3/uL (0.20-1.00); Monocytes % (A) 7.9 %; Neutrophils # (A) 16.51 X 10*3/uL (1.80-7.70); Neutrophils % (A) 84.8 %; RBC Morphology Normal (Normal)
[2024-06-18 11:21] LABS: Glucose,Whole Blood 164 mg/dL (70-110)
--- NOTE | 2024-06-18 13:16 | P.PN ---
Subjective Progress Note Date: 06/18/24 This is an 83-year-old female patient, known to have COPD, uses albuterol rescue inhaler only on an as-needed basis. She also has a nebulizer at home. The patient presented with worsening shortness of breath, cough congestion chest tightness or wheezing. Symptoms started approximately 2 weeks ago. She was given amoxicillin, and Medrol Dosepak on outpatient basis. She was given the same treatment approximately 4 days ago. Nevertheless, her condition decompensated and she was getting more short of breath and for that reason she ended up coming into the emergency department. She tested positive for RSV. The chest x-ray shows no acute abnormalities. There are some cardiomegaly and mild pulm vessel congestion. CAT scan of the abdomen and pelvis was also done in the emergency department as the patient was complaining of some vague abdominal pain. The patient was found to have sigmoid diverticulosis without diverticulitis. The patient also had fecal debris's with narrowing caliber matamoros ge of the sigmoid colon as previously described anastomosis. The patient's white cell count is at 8.2 with a hemoglobin 11.6 and a platelet count of 251. BUN is 23 with a creatinine of 0.7 and a sodium level is 137 and a potassium level is at 4.3 Noted the patient has undergone previous colectomy for a complicated diverticulitis with colostomy and subsequent reversal. She has COPD. She has skin cancer. She has thyroid disease. 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 She suffers from degenerative arthritis. She has multiple joint surgeries involving the knees and she has undergone total hip replacement and shoulder surgeries. The patient is seen today June 12, 2024 in follow-up on the regular medical floor. She is currently sitting up in bed. Awake and alert in no acute distress. She denies any worsening shortness of breath, cough or congestion. She is maintaining O2 saturations in the 90s on 4 L/min per nasal cannula. She is having some issues with nausea. CT scan of the abdomen revealed fecal debris with narrowing caliber change of the sigmoid colon at the anastomosis. Mild narrowing may be present. Distal sigmoid colon contains diverticulosis without acute diverticulitis. Echocardiogram revealed preserved left ventricular systolic function with ejection fraction 45 to 50%. Glucose 173. She is continued on DuoNeb and elations, Symbicort, Solu-Medrol. Heparin for DVT prophylaxis. Remains on Mucinex and Robitussin for her occasional cough. The patient is seen today June 13, 2024 in follow-up on the regular medical floor. She is awake and alert in no acute distress. She is maintaining good O2 saturations in the 90s on 4 L/min per nasal cannula. She remains afebrile. Hem odynamically stable. Glucose 133. She remains on DuoNeb and elations, Symbicort, Solu-Medrol. Heparin for DVT prophylaxis. Mucinex for her cough and congestion. Follow-up chest x-ray reveals no acute pulmonary process. The patient is seen today June 14, 2024 in follow-up on the regular medical floor. She is currently resting comfortably in bed. Awake and alert in no acute distress. She is maintaining good O2 saturations in the 90s on 4 L/min per nasal cannula. Lungs are sounding much clearer. She was having some complaints of right shoulder pain. X-ray shows no acute abnormalities. Spine x-ray revealed degenerative disc changes with spondylosis within the cervical spine greatest at C5-6, C6-7. Glucose 104. She is continued on DuoNeb inhalations, Symbicort, prednisone taper. She remains on Mucinex along with Robitussin as needed. Cough is much improved. The patient is seen today June 16, 2024 in follow-up on the regular medical floor. She is currently awake and alert in no acute distress. Still having some left shoulder and neck pain. She is having higher oxygen requirements currently on 6 L high flow nasal cannula. She is afebrile. Hemodynamically s table. Chest x-ray reveals a retrocardiac infiltrate, possible pneumonia. Her initial procalcitonin was 0.06, currently 2.55. Glucose 144. She has been initiated on Zosyn. Continued on DuoNeb inhalations, Symbicort, prednisone taper. Heparin for DVT prophylaxis. The patient is seen today June 17, 2024 in follow-up on the regular medical floor. She is currently resting in bed. Awake and alert in no acute distress. Still having some neck and shoulder discomfort. She denies any worsening shortness of breath, cough or congestion. She is maintaining O2 saturations in the 90s on 6 L high flow nasal cannula. She remains on Zosyn. Remains on DuoNeb inhalations, Symbicort, prednisone taper. Continued on Mucinex. Heparin for DVT prophylaxis. Glucose 144. The patient is seen today June 18, 2024 in follow-up on the regular medical floor. She is up in a chair at the bedside. Awake and alert in no acute distress. She is maintaining good O2 saturations in the 90s on 4 L/min per n radha cannula. Afebrile. Hemodynamically stable. CT scan of the chest revealed small left and minimal right pleural effusions with adjacent compressive atelectasis. Pleural-based density posterior lateral left upper lung field. 10.4. Platelets 176. Sodium 134. Potassium 4.4. Bicarb 28. BUN 19. Creatinine 0.8. Glucose 167. She is on heparin for DVT prophylaxis. Continued on bronchodilators and steroids. Continued on Zosyn. Continued on Mucinex. Encouraged regarding the increased use of the incentive spirometer. Objective - Vital Signs Vital signs: Vital Signs Temp 98.2 F 06/18/24 07:13 Pulse 78 06/18/24 12:40 Resp 18 06/18/24 07:13 BP 124/69 06/18/24 07:13 Pulse Ox 91 L 06/18/24 07:46 FiO2 Intake & Output 06/17/24 06/18/24 06/18/24 18:59 06:59 18:59 Intake Total 200 1060 Output Total 400 Balance -200 1060 Intake: Oral 200 1060 Output: Urine 400 Other: Voiding Method Bedside Commode # Voids 0 1 - Exam GENERAL EXAM: Alert, 83-year-old female, up in a chair, on 4 L nasal cannula, in no apparent distress. HEAD: Normocephalic. EYES: Normal reaction of pupils, equal size. NOSE: Clear with pink turbinates. THROAT: No erythema or exudates. NECK: No masses, no JVD. CHEST: No chest wall deformity. LUNGS: Equal air entry with faint crackles in the left base. CVS: S1 and S2 normal with no audible murmur, regular rhythm. ABDOMEN: No hepatosplenomegaly, normal bowel sounds, no guarding or rigidity. SPINE: No scoliosis or deformity SKIN: No rashes CENTRAL NERVOUS SYSTEM: No focal deficits, tone is normal in all 4 extremities. EXTREMITIES: There is no peripheral edema. No clubbing, no cyanosis. Peripheral pulses are intact. - Labs CBC & Chem 7: 06/18/24 05:35 06/18/24 05:35 Labs: Abnormal Lab Results - Last 24 Hours (Table) 06/17/24 06/17/24 06/18/24 Range/Units 16:29 20:44 05:35 WBC 19.46 H (4.50-10.00) X 10*3/uL RBC 3.43 L (4.10-5.20) X 10*6/uL Hgb 10.4 L (12.0-15.0) g/dL Hct 33.1 L (37.2-46.3) % MCHC 31.4 L (32.0-37.0) g/dL RDW 15.8 H (11.5-14.5) % Immature Gran # 0.72 H (0.00-0.04) X 10*3/uL Neutrophils # 16.51 H (1.80-7.70) X 10*3/uL Lymphocytes # 0.58 L (0.90-5.00) X 10*3/uL Monocytes # 1.54 H (0.20-1.00) X 10*3/uL Eosinophils # 0.02 L (0.04-0.35) X 10*3/uL Sodium (135-145) mmol/L BUN/Creatinine Ratio (12.00-20.00) Ratio Glucose (70-110) mg/dL POC Glucose (mg/dL) 186 H 205 H (70-110) mg/dL Calcium (8.7-10.3) mg/dL 06/18/24 06/18/24 06/18/24 Range/Units 05:35 07:03 11:13 WBC (4.50-10.00) X 10*3/uL RBC (4.10-5.20) X 10*6/uL Hgb (12.0-15.0) g/dL Hct (37.2-46.3) % MCHC (32.0-37.0) g/dL RDW (11.5-14.5) % Immature Gran # (0.00-0.04) X 10*3/uL Neutrophils # (1.80-7.70) X 10*3/uL Lymphocytes # (0.90-5.00) X 10*3/uL Monocytes # (0.20-1.00) X 10*3/uL Eosinophils # (0.04-0.35) X 10*3/uL Sodium 134 L (135-145) mmol/L BUN/Creatinine Ratio 24.12 H (12.00-20.00) Ratio Glucose 167 H (70-110) mg/dL POC Glucose (mg/dL) 156 H 164 H (70-110) mg/dL Calcium 7.9 L (8.7-10.3) mg/dL Assessment and Plan Assessment: Acute exacerbation of COPD with secondary shortness of breath, failed outpatient treatment. Chest x-ray now showing retrocardiac infiltrate. Procalcitonin initially negative at 0.06, currently 2.55. Initiated on Zosyn. CT scan of the chest revealed small and minimal right pleural effusions with adjacent compressive atelectasis. Pleural base density posterior lateral left upper lung field. Atelectasis versus pneumonia versus mass. Acute RSV infection exacerbating her underlying COPD Acute on chronic hypoxic respiratory failure currently on 6 L of oxygen by nasal cannula, utilizes home oxygen at night Degenerative arthritis with right shoulder pain. 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 shoulders with multiple orthopedic interventions surgery in the past History of skin cancer removed History of migraines Hypothyroidism and the patient has undergone previous partial thyroidectomy Plan: The patient was seen and evaluated Labs and medications reviewed Continued on Zosyn Currently on 4 L nasal cannula Titrate down the FiO2 as tolerated Encouraged the increased use of the incentive spirometer Continue DuoNeb inhalations, Symbicort Continue prednisone taper Heparin for DVT prophylaxis Increase her activity as tolerated I have personally seen and examined the patient, performed the documentation and the assessment and plan as written. Number of minutes spent on the visit: 10 Dictation was produced using [employer] dictation software. Please excuse any grammatical, word or spelling errors.
--- NOTE | 2024-06-18 13:50 | P.PN ---
Subjective Progress Note Date: 06/18/24 Interval History: History of present illness; patient is a 83-year-old lady with past medical history significant for COPD, chronic hypoxic respiratory failure who presented the ER because of worsening shortness of breath. Patient stated that she has been feeling short of breath for the last 2 days. Patient stated that she has been using her breathing treatments but they are not helping her to get better. Shortness of breath is present at rest as on exertion. Patient is also complaining of cough. Patient denies any chest pain. There is no complaint of orthopnea or PND. Patient denies any swelling of feet. There was no complaint of nausea, vomiting or abdominal pain. Because of this worsening shortness of breath, patient brought in the ER Initial lab work done in the ER showed WBC 11.7, hemoglobin 12.1, platelet count 286, sodium 134, potassium 4.4, BUN 23, creatinine 0.80, glucose 113, lactate 2.1, calcium 9.9, troponin 0.026 Influenza A not detected Influenza B not detected RSV detected COVID-19 not detected EKG done in the ER showed heart rate of 88 , no ST segment elevation or depression seen, no T-wave inversions seen. Chest x-ray done in the ER showed cardiomegaly and mild pulm venous congestion Patient admitted to internal medicine service 06/12 Patient still feeling short of breath and still wheezing and coarse crepitation related to her RSV infection She is currently on 2 L oxygen at home she was not on any. Patient also had CAT scan of the abdomen on admission showing possible narrowing of the sigmoid colon, as per patient she does not have problem with defecation right now, she states she had colonoscopy with [facility] about 1.5 years ago. She is covered with IV Solu-Medrol 60 mg. 06/13 Patient had more short of breath and like panic attack last night. Today she feels back to like yesterday. Still complaining mild dyspnea at rest she is still on 4 L oxygen, at home she was not on any oxygen No chest pain but complains from some epigastric discomfort, that is worsened by coughing. And feels like she is bloated. Request something better for coughin g. Patient already on Protonix for she is on steroids, will going to increase it to twice daily. Also will give her cough medicine . Patient states that she had colonoscopy done with [facility] few years ago, but 1.5 years ago she had EGD and she assumes is fine because nobody contacted her after that. Chest x-ray done today reviewed by myself pending report showing better variation with no worsening consolidation. She remains on IV Solu-Medrol 60 mg. Patient evaluated by mason apprentice on admission. Echocardiogram showing ejection fraction of 40 to 45% which is lower than normal level 06/14 Patient today breathing is improved, she was placed on prednisone 30 mg. She continue on a 3 to 4 L oxygen via nasal cannula. However she was complaining from severe right shoulder pain that she refused to move her right arm on examination. She states this happened after she did she pulled herself up on the toilet. We ordered x-ray of the right shoulder showing degenerative disease. Her orthopedic team are consulted and also ordered cervical spine x-ray showing cervical disease. Will continue with pain management. There is no evidence of acute fracture or dislocation. Patient remains stable and improving may be considered for discharge tomorrow 06/15 Patient today mentation was stable, her breathing was stable initially. She developed low-grade temperature 100.4 Her right shoulder pain was thought most likely secondary to degenerative disc disease related to her right shoulder and cervical spine. Ultrasound of the right upper extremity was negative for acute process or DVT We discussed the case with pulmonary team. Patient was stable for discharge as well as orthopedic team recommended outpatient follow-up However patient when she was trying to get up to go to the bathroom she dropped her blood pressure. Also her oxygen requirements went up a little bit from 4 up to 6 L/min. Therefore a bolus of 250 normal saline was provided for her. Also patient does not go to [facility] upon discharge she wants to go home with home health care. Will continue monitoring the patient today and recheck labs in the morning Patient dropping blood pressure today could be multifactorial from her laying in bed, deconditioning lowering the dose of steroids using pain medication and muscle relaxants pulmonary with contribution. Patient currently on losartan 100 mg and nifedipine 90 mg, we will lower the dose of nifedipine down to 60 mg Also repeat chest x-ray today showing similar findings but also retrocardiac infiltrate suspicious for pneumonia. Zosyn was started. 06/16 Patient was going to be discharged yesterday when she developed more hypoxia and postural hypotension. Patient brought back to the bed. Her oxygen requirement increased from 4 up to 6 L and patient currently getting 6 L/min via high flow nasal cannula. Patient mildly tachypneic patient herself denies any chest pain or worsening coughing and she wants to go home. She has ongoing right shoulder pain and a sling will try to be placed for her. Repeated chest x-ray yesterday showing possible retrocardiac infiltrates. No fever. No new leukocytosis but pro- Calcitonin and jumped up from 0.06 up to 2.5. Patient was started on Zosyn and pulmonary team consulted. Also I talked to the her daughter who is a MACHINE [employer] and explained the management plan for her and she verbalized understanding and acceptance 06/17--- patient was seen and examined today. Currently on 6 L of oxygen. Remains on Zosyn for pneumonia, remains on inhaler/bronchodilator protocol, prednisone taper. Remains afebrile, heart rate 75, respiratory rate 20, blood pressure soft 96/58, saturating 90% on 6 L. Procalcitonin was 2.55 yesterday. Pulmonary following. 06/18--patient was seen and examined today, afebrile, heart rate 84, respiratory rate 18, blood pressure 124/69, saturating 91% on 4 L. WBCs 19.4, hemoglobin 10.4, platelet 176. BMP unremarkable. On bronchodilators and steroids, on Zosyn, Mucinex. Pulmonary following. Patient continues complain of neck pain, right shoulder pain. Orthopedic informed and requested to reevaluate for possible KATHY, per orthopedic they will follow-up tomorrow. Assessment and plan: Acute COPD exacerbation. Improved RSV infection: Acute hypoxic respiratory failure: Retrocardiac pneumonia, Severe right shoulder pain after she pulled up her up on 06/14. X-ray of the right shoulder and cervical spine showing no fracture or dislocation. Postural hypotension Mild cardiomyopathy with ejection fraction 40 to 45% Possible narrowing of the sigmoid colon, patient to follow-up as an outpatient currently asymptomatic Obesity with BMI of 29.8 History of pacemaker in place: Plan: CT chest showed small left and minimal right pleural effusion with adjacent compressive atelectasis, pleural-based density posterior lateral left upper lung field. Continue with bronchodilator IV Solu-Medrol 60 mg switch to prednisone taper. Orthopedic consult. Pain management consulted Continue with Zosyn Pulmonary team consult Continue losartan 100 mg, lower the dose of nifedipine 90 down to 60 mg and check blood pressure tomorrow Patient informed about her colon problem and she said she follow-up with [facility] and pain management consulted for cervical radiculopathy and shoulder joint arthropathy. DVT prophylaxis: Subcutaneous heparin Disposition: PT/OT consulted. Monitor vital signs and labs Labs and medication were reviewed. Continue same treatment. Further recommendations as per clinical course of the patient PHYSICAL EXAMINATION: GENERAL: NAD HEENT: EOMI, Sclerae anicteric, Moist Mucous membranes Neck: Supple, Non tender, No JVD PULMONARY: Equal breath souds B/L, No wheezing, + crackles. CARDIOVASCULAR: S1, S2 present. No murmurs, rubs, or gallops. ABDOMEN: Soft, nontender, nondistended, normoactive bowel sounds. No guarding or rebound tenderness. MUSCULOSKELETAL: No edema, No cyanosis. No clubbing. Normal ROM. Intact peripheral pulses. NEUROLOGICAL: CN 2-12 grossly intact. No FND Skin: No Rash REVIEW OF SYSTEMS: CONSTITUTIONAL: No fever or chills. CARDIOVASCULAR: No chest pain, palpitations or syncope. PULMONARY: Complains of shortness of breath, cough, GASTROINTESTINAL: No nausea, vomiting, diarrhea, abdominal pain. : No Dysuria, urgency, frequency. Extremities: No edema. Complain of right shoulder pain, multiple joint pains. NEUROLOGICAL: No headaches, no weakness, or numbness Dictation was produced using [employer] dictation software. please excuse any grammatical, word or spelling errors. Objective - Vital Signs Vital signs: Vital Signs Temp 98.2 F 06/18/24 07:13 Pulse 78 06/18/24 12:40 Resp 18 06/18/24 07:13 BP 124/69 06/18/24 07:13 Pulse Ox 91 L 06/18/24 07:46 FiO2 Intake & Output 06/17/24 06/18/24 06/18/24 18:59 06:59 18:59 Intake Total 200 1060 Output Total 400 Balance -200 1060 Intake: Oral 200 1060 Output: Urine 400 Other: Voiding Method Bedside Commode # Voids 0 1 - Labs CBC & Chem 7: 06/18/24 05:35 06/18/24 05:35 Labs: Abnormal Lab Results - Last 24 Hours (Table) 06/17/24 06/17/24 06/18/24 Range/Units 16:29 20:44 05:35 WBC 19.46 H (4.50-10.00) X 10*3/uL RBC 3.43 L (4.10-5.20) X 10*6/uL Hgb 10.4 L (12.0-15.0) g/dL Hct 33.1 L (37.2-46.3) % MCHC 31.4 L (32.0-37.0) g/dL RDW 15.8 H (11.5-14.5) % Immature Gran # 0.72 H (0.00-0.04) X 10*3/uL Neutrophils # 16.51 H (1.80-7.70) X 10*3/uL Lymphocytes # 0.58 L (0.90-5.00) X 10*3/uL Monocytes # 1.54 H (0.20-1.00) X 10*3/uL Eosinophils # 0.02 L (0.04-0.35) X 10*3/uL Sodium (135-145) mmol/L BUN/Creatinine Ratio (12.00-20.00) Ratio Glucose (70-110) mg/dL POC Glucose (mg/dL) 186 H 205 H (70-110) mg/dL Calcium (8.7-10.3) mg/dL 06/18/24 06/18/24 06/18/24 Range/Units 05:35 07:03 11:13 WBC (4.50-10.00) X 10*3/uL RBC (4.10-5.20) X 10*6/uL Hgb (12.0-15.0) g/dL Hct (37.2-46.3) % MCHC (32.0-37.0) g/dL RDW (11.5-14.5) % Immature Gran # (0.00-0.04) X 10*3/uL Neutrophils # (1.80-7.70) X 10*3/uL Lymphocytes # (0.90-5.00) X 10*3/uL Monocytes # (0.20-1.00) X 10*3/uL Eosinophils # (0.04-0.35) X 10*3/uL Sodium 134 L (135-145) mmol/L BUN/Creatinine Ratio 24.12 H (12.00-20.00) Ratio Glucose 167 H (70-110) mg/dL POC Glucose (mg/dL) 156 H 164 H (70-110) mg/dL Calcium 7.9 L (8.7-10.3) mg/dL
[2024-06-18 17:24] LABS: Glucose,Whole Blood 151 mg/dL (70-110)
[2024-06-18 20:53] LABS: Glucose,Whole Blood 166 mg/dL (70-110)
[2024-06-18] MEDS: LIDOCAINE 4% PATCH TOPICAL SCH (22:00)
[2024-06-19 06:28] LABS: Glucose,Whole Blood 118 mg/dL (70-110)
[2024-06-19 07:20] VITALS: RESP 18
--- NOTE | 2024-06-19 08:04 | XR ---
EXAMINATION TYPE: XR chest 1V portable DATE OF EXAM: 06/19/2024 6:49 AM COMPARISON: Chest radiographs from 06/15/2024, CT chest 06/16/2024 TECHNIQUE: XR chest 1V portable Portable AP radiograph of the chest. CLINICAL INDICATION:Female, 83 years old with history of Pneumonia; FINDINGS: Lungs/Pleura: Blunting of both costophrenic angles with right basilar consolidation and left midlung patchy airspace opacity. Pulmonary vascularity: Unremarkable. Heart/mediastinum: Cardiomediastinal silhouette is enlarged and stable. Two lead cardiac conduction d evice overlying the left hemithorax with lead tips projecting over the right ventricle and right atri um. Musculoskeletal: No acute osseous pathology. Right shoulder arthroplasty change. Left shoulder arthro harinder. IMPRESSION: Similar small bilateral pleural effusions with right basilar consolidation with additional left upper lung patchy airspace opacity. Findings concerning for pneumonia and/or atelectasis. [facility], , 06/19/2024 8:02 AM
--- NOTE | 2024-06-19 08:58 | P.PN ---
Subjective Progress Note Date: 06/19/24 Principal diagnosis: Intractable right shoulder pain. Bilateral upper extremity cervical radiculopathy. History of partial right shoulder replacement. This is an 83-year-old female admitted with respiratory complications secondary to RSV and COPD. She states that since her admission she has been having to pull herself up from the bed and from the commode which is causing pain in her right shoulder. She states that the pain has become severe. She is also having some numbness and tingling down the arm. She does have history of cervical degenerative disc disease and has had pain management procedures in the past. She also has history of partial right shoulder joint replacement about 4 to 5 years ago in [place]. We are consulted for orthopedic evaluation of her right shoulder pain. 06/19/2024: We were asked to reevaluate. The patient has remained inpatient secondary to pneumonia. She was initially seen by pain management last week who recommended a possible cervical epidural injection. At that time I thought she would be discharged and would follow-up as an outpatient. The patient continues to have right shoulder pain. She is now complaining of some left-sided trapezial pain as well. She continues to have numbness and tingling down the right upper extremity along with weakness. I had a lengthy discussion with the patient's daughter yesterday regarding possible treatment options. Objective - Vital Signs Vital signs: Vital Signs Temp 98.0 F 06/19/24 06:50 Pulse 86 06/19/24 06:50 Resp 18 06/19/24 06:50 BP 127/75 06/19/24 06:50 Pulse Ox 93 L 06/19/24 07:59 FiO2 Intake & Output 06/18/24 06/19/24 06/19/24 18:59 06:59 18:59 Weight 72.5 kg Other: Voiding Method Bedside Commode Bedside Commode # Voids 1 1 # Bowel Movements 0 - Exam This is a pleasant 83-year-old female in no acute distress. She is alert and oriented x 3. Exam of the head and neck reveal no obvious deformity. She has some limitation in cervical rotation secondary to pain. There is pain with palpation about the trapezial musculature bilaterally. She is exquisitely tender over the left paraspinal/trapezial musculature today. There is a lidocaine patch in place on the right anterior superior shoulder. There is limited forward flexion of the right upper extremity. She is able to raise the left arm without too much difficulty. Full elbow, wrist and finger motion bilaterally. The remainder of her musculoskeletal exam is unremarkable. - Labs CBC & Chem 7: 06/18/24 05:35 06/18/24 05:35 Labs: Abnormal Lab Results - Last 24 Hours (Table) 06/18/24 06/18/24 06/18/24 Range/Units 05:35 05:35 11:13 WBC 19.46 H (4.50-10.00) X 10*3/uL RBC 3.43 L (4.10-5.20) X 10*6/uL Hgb 10.4 L (12.0-15.0) g/dL Hct 33.1 L (37.2-46.3) % MCHC 31.4 L (32.0-37.0) g/dL RDW 15.8 H (11.5-14.5) % Immature Gran # 0.72 H (0.00-0.04) X 10*3/uL Neutrophils # 16.51 H (1.80-7.70) X 10*3/uL Lymphocytes # 0.58 L (0.90-5.00) X 10*3/uL Monocytes # 1.54 H (0.20-1.00) X 10*3/uL Eosinophils # 0.02 L (0.04-0.35) X 10*3/uL Sodium 134 L (135-145) mmol/L BUN/Creatinine Ratio 24.12 H (12.00-20.00) Ratio Glucose 167 H (70-110) mg/dL POC Glucose (mg/dL) 164 H (70-110) mg/dL Calcium 7.9 L (8.7-10.3) mg/dL 06/18/24 06/18/24 06/19/24 Range/Units 17:20 20:52 06:25 WBC (4.50-10.00) X 10*3/uL RBC (4.10-5.20) X 10*6/uL Hgb (12.0-15.0) g/dL Hct (37.2-46.3) % MCHC (32.0-37.0) g/dL RDW (11.5-14.5) % Immature Gran # (0.00-0.04) X 10*3/uL Neutrophils # (1.80-7.70) X 10*3/uL Lymphocytes # (0.90-5.00) X 10*3/uL Monocytes # (0.20-1.00) X 10*3/uL Eosinophils # (0.04-0.35) X 10*3/uL Sodium (135-145) mmol/L BUN/Creatinine Ratio (12.00-20.00) Ratio Glucose (70-110) mg/dL POC Glucose (mg/dL) 151 H 166 H 118 H (70-110) mg/dL Calcium (8.7-10.3) mg/dL Assessment and Plan (1) Acute exacerbation of chronic obstructive pulmonary disease Current Visit: Yes Status: Acute Code(s): J44.1 - CHRONIC OBSTRUCTIVE PULMONARY DISEASE W (ACUTE) EXACERBATION SNOMED Code(s): 292578276 (2) RSV bronchiolitis Current Visit: Yes Status: Acute Code(s): J21.0 - ACUTE BRONCHIOLITIS DUE TO RESPIRATORY SYNCYTIAL VIRUS SNOMED Code(s): 15277894 (3) Cervical spondylosis without myelopathy Current Visit: No Status: Chronic Code(s): M47.812 - SPONDYLOSIS W/O MYELOPATHY OR RADICULOPATHY, CERVICAL REGION SNOMED Code(s): 120727588 (4) Right shoulder pain Current Visit: No Status: Chronic Code(s): M25.511 - PAIN IN RIGHT SHOULDER SNOMED Code(s): 4619605567 Plan: The clinical findings are discussed with the patient and nursing staff. I do believe that there is significant cervical contribution to her right arm and shoulder symptoms which was discussed in detail with the patient and her daughter previously. A lidocaine patch was ordered for the right shoulder yesterday which she states has improved her symptoms slightly. With her new onset left-sided trapezial pain she is requesting a possible trigger point injection. I have asked pain management to return for reevaluation and discuss possible epidural steroid injection and/or some trigger point injections in the trapezial musculature to help alleviate some of her symptoms. I reiterated my concern regarding an intra-articular right shoulder injection with the presence of an artificial joint component in place. The patient and her family understand and agree with the plan.
[2024-06-19 11:14] LABS: Glucose,Whole Blood 142 mg/dL (70-110)
[2024-06-19] MEDS ORDERED: bisacodyL 10 MG SUPP RECTAL PRN (12:07)
--- NOTE | 2024-06-19 14:13 | P.PN ---
Subjective Interval History: History of present illness; patient is a 83-year-old lady with past medical history significant for COPD, chronic hypoxic respiratory failure who presented the ER because of worsening shortness of breath. Patient stated that she has been feeling short of breath for the last 2 days. Patient stated that she has been using her breathing treatments but they are not helping her to get better. Shortness of breath is present at rest as on exertion. Patient is also complaining of cough. Patient denies any chest pain. There is no complaint of orthopnea or PND. Patient denies any swelling of feet. There was no complaint of nausea, vomiting or abdominal pain. Because of this worsening shortness of breath, patient brought in the ER Initial lab work done in the ER showed WBC 11.7, hemoglobin 12.1, platelet count 286, sodium 134, potassium 4.4, BUN 23, creatinine 0.80, glucose 113, lactate 2.1, calcium 9.9, troponin 0.026 Influenza A not detected Influenza B not detected RSV detected COVID-19 not detected EKG done in the ER showed heart rate of 88 , no ST segment elevation or depression seen, no T-wave inversions seen. Chest x-ray done in the ER showed cardiomegaly and mild pulm venous congestion Patient admitted to internal medicine service 06/12 Patient still feeling short of breath and still wheezing and coarse crepitation related to her RSV infection She is currently on 2 L oxygen at home she was not on any. Patient also had CAT scan of the abdomen on admission showing possible narrowing of the sigmoid colon, as per patient she does not have problem with defecation right now, she states she had colonoscopy with [facility] about 1.5 years ago. She is covered with IV Solu-Medrol 60 mg. 06/13 Patient had more short of breath and like panic attack last night. Today she feels back to like yesterday. Still complaining mild dyspnea at rest she is still on 4 L oxygen, at home she was not on any oxygen No chest pain but complains from some epigastric discomfort, that is worsened by coughing. And feels like she is bloated. Request something better for coughing. Patient already on Protonix for she is on steroids, will going to increase it to twice daily. Also will give her cough medicine . Patient states that she had colonoscopy done with [facility] few years ago, but 1.5 years ago she had EGD and she assumes is fine because nobody contacted her after that. Chest x-ray done today reviewed by myself pending report showing better variation with no worsening consolidation. She remains on IV Solu-Medrol 60 mg. 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 Echocardiogram showing ejection fraction of 40 to 45% which is lower than normal level 06/14 Patient today breathing is improved, she was placed on prednisone 30 mg. She continue on a 3 to 4 L oxygen via nasal cannula. However she was complaining from severe right shoulder pain that she refused to move her right arm on examination. She states this happened after she did she pulled herself up on the toilet. We ordered x-ray of the right shoulder showing degenerative disease. Her orthopedic team are consulted and also ordered ce rvical spine x-ray showing cervical disease. Will continue with pain management. There is no evidence of acute fracture or dislocation. Patient remains stable and improving may be considered for discharge tomorrow 06/15 Patient today mentation was stable, her breathing was stable initially. She de veloped low-grade temperature 100.4 Her right shoulder pain was thought most likely secondary to degenerative disc disease related to her right shoulder and cervical spine. Ultrasound of the right upper extremity was negative for acute process or DVT We discussed the case with pulmonary team. Patient was stable for discharge as well as orthopedic team recommended outpatient follow-up However patient when she was trying to get up to go to the bathroom she dropped her blood pressure. Also her oxygen requirements went up a little bit from 4 up to 6 L/min. Therefore a bolus of 250 normal saline was provided for her. Also patient does not go to [facility] upon discharge she wants to go home with home health care. Will continue monitoring the patient today and recheck labs in the morning Patient dropping blood pressure today could be multifactorial from her laying in bed, deconditioning lowering the dose of steroids using pain medication and muscle relaxants pulmonary with contribution. Patient currently on losartan 100 mg and nifedipine 90 mg, we will lower the dose of nifedipine down to 60 mg Also repeat chest x-ray today showing similar findings but also retrocardiac infiltrate suspicious for pneumonia. Zosyn was started. 06/16 Patient was going to be discharged yesterday when she developed more hypoxia and postural hypotension. Patient brought back to the bed. Her oxygen requirement increased from 4 up to 6 L and patient currently getting 6 L/min via high flow nasal cannula. Patient mildly tachypneic patient herself denies any chest pain or worsening coughing and she wants to go home. She has ongoing right shoulder pain and a sling will try to be placed for her. Repeated chest x-ray yesterday showing possible retrocardiac infiltrates. No fever. No new leukocytosis but pro- Calcitonin and jumped up from 0.06 up to 2.5. Patient was started on Zosyn and pulmonary team consulted. Also I talked to the her daughter who is a ROUND CORNER CUTTER OPERATOR and explained the management plan for her and she verbalized understanding and acceptance 06/17--- patient was seen and examined today. Currently on 6 L of oxygen. Remains on Zosyn for pneumonia, remains on inhaler/bronchodilator protocol, prednisone taper. Remains afebrile, heart rate 75, respiratory rate 20, blood pressure soft 96/58, saturating 90% on 6 L. Procalcitonin was 2.55 yesterday. Pulmonary following. 06/18--patient was seen and examined today, afebrile, heart rate 84, respiratory rate 18, blood pressure 124/69, saturating 91% on 4 L. WBCs 19.4, hemoglobin 10.4, platelet 176. BMP unremarkable. On bronchodilators and steroids, on Zosyn, Mucinex. Pulmonary following. Patient continues complain of neck pain, right shoulder pain. Orthopedic informed and requested to reevaluate for possible KATHY, per orthopedic they will follow-up tomorrow. 06/19--patient was seen and examined today. Patient is afebrile, heart rate 90, respiratory rate 18, blood pressure 150/83, saturating 90% on 3 L. Orthopedic evaluated the patient, recommended KATHY and trigger point injection by pain management. Awaiting reevaluation by pain management. Assessment and plan: Acute COPD exacerbation. Improved RSV infection: Acute hypoxic respiratory failure: Retrocardiac pneumonia, Severe right shoulder pain after she pulled up her up on 06/14. X-ray of the right shoulder and cervical spine showing no fracture or dislocation. Postural hypotension Mild cardiomyopathy with ejection fraction 40 to 45% Possible narrowing of the sigmoid colon, patient to follow-up as an outpatient currently asymptomatic Obesity with BMI of 29.8 History of pacemaker in place: Plan: CT chest showed small left and minimal right pleural effusion with adjacent compressive atelectasis, pleural-based density posterior lateral left upper lung field. Continue with bronchodilator IV Solu-Medrol 60 mg switch to prednisone taper. Orthopedic consult. Pain management consulted Continue with [facility] Pulmonary team consult Continue losartan 100 mg, lower the dose of nifedipine 90 down to 60 mg and check blood pressure tomorrow Patient informed about her colon problem and she said she follow-up with [facility] and pain management consulted for cervical radiculopathy and shoulder joint arthropathy. DVT prophylaxis: Subcutaneous heparin Disposition: PT/OT consulted. Monitor vital signs and labs Labs and medication were reviewed. Continue same treatment. Further recommendations as per clinical course of the patient PHYSICAL EXAMINATION: GENERAL: NAD HEENT: EOMI, Sclerae anicteric, Moist Mucous membranes Neck: Supple, Non tender, No JVD PULMONARY: Equal breath souds B/L, No wheezing, + crackles. CARDIOVASCULAR: S1, S2 present. No murmurs, rubs, or gallops. ABDOMEN: Soft, nontender, nondistended, normoactive bowel sounds. No guarding or rebound tenderness. MUSCULOSKELETAL: No edema, No cyanosis. No clubbing. Normal ROM. Intact peripheral pulses. NEUROLOGICAL: CN 2-12 grossly intact. No FND Skin: No Rash REVIEW OF SYSTEMS: CONSTITUTIONAL: No fever or chills. CARDIOVASCULAR: No chest pain, palpitations or syncope. PULMONARY: Complains of shortness of breath, cough, GASTROINTESTINAL: No nausea, vomiting, diarrhea, abdominal pain. : No Dysuria, urgency, frequency. Extremities: No edema. Complain of right shoulder pain, multiple joint pains. NEUROLOGICAL: No headaches, no weakness, or numbness Dictation was produced using [employer] dictation software. please excuse any gramm atical, word or spelling errors. Objective - Vital Signs Vital signs: Vital Signs Temp 97.9 F 06/19/24 13:12 Pulse 90 06/19/24 13:12 Resp 18 06/19/24 13:12 BP 150/83 06/19/24 13:12 Pulse Ox 90 L 06/19/24 13:12 FiO2 Intake & Output 06/18/24 06/19/24 06/19/24 18:59 06:59 18:59 Weight 72.5 kg Other: Voiding Method Bedside Commode Bedside Commode # Voids 1 1 1 # Bowel Movements 0 1 - Labs CBC & Chem 7: 03/02/25 05:35 06/18/24 05:35 Labs: Abnormal Lab Results - Last 24 Hours (Table) 06/18/24 06/18/24 06/19/24 Range/Units 17:20 20:52 06:25 POC Glucose (mg/dL) 151 H 166 H 118 H (70-110) mg/dL 06/19/24 Range/Units 11:12 POC Glucose (mg/dL) 142 H (70-110) mg/dL
--- NOTE | 2024-06-19 14:23 | P.PN ---
Subjective Progress Note Date: 06/19/24 This is an 83-year-old female patient, known to have COPD, uses albuterol rescue inhaler only on an as-needed basis. She also has a nebulizer at home. The patient presented with worsening shortness of breath, cough congestion chest tightness or wheezing. Symptoms started approximately 2 weeks ago. She was given amoxicillin, and Medrol Dosepak on outpatient basis. She was given the same treatment approximately 4 days ago. Nevertheless, her condition decompensated and she was getting more short of breath and for that reason she ended up coming into the emergency department. She tested positive for RSV. The chest x-ray shows no acute abnormalities. There are some cardiomegaly and mild pulm vessel congestion. CAT scan of the abdomen and pelvis was also done in the emergency department as the patient was complaining of some vague abdominal pain. The patient was found to have sigmoid diverticulosis without diverticulitis. The patient also had fecal debris's with narrowing caliber matamoros ge of the sigmoid colon as previously described anastomosis. The patient's white cell count is at 8.2 with a hemoglobin 11.6 and a platelet count of 251. BUN is 23 with a creatinine of 0.7 and a sodium level is 137 and a potassium level is at 4.3 Noted the patient has undergone previous colectomy for a complicated diverticulitis with colostomy and subsequent reversal. She has COPD. She has skin cancer. She has thyroid disease. 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 She suffers from degenerative arthritis. She has multiple joint surgeries involving the knees and she has undergone total hip replacement and shoulder surgeries. The patient is seen today June 12, 2024 in follow-up on the regular medical floor. She is currently sitting up in bed. Awake and alert in no acute distress. She denies any worsening shortness of breath, cough or congestion. She is maintaining O2 saturations in the 90s on 4 L/min per nasal cannula. She is having some issues with nausea. CT scan of the abdomen revealed fecal debris with narrowing caliber change of the sigmoid colon at the anastomosis. Mild narrowing may be present. Distal sigmoid colon contains diverticulosis without acute diverticulitis. Echocardiogram revealed preserved left ventricular systolic function with ejection fraction 45 to 50%. Glucose 173. She is continued on DuoNeb and elations, Symbicort, Solu-Medrol. Heparin for DVT prophylaxis. Remains on Mucinex and Robitussin for her occasional cough. The patient is seen today June 13, 2024 in follow-up on the regular medical floor. She is awake and alert in no acute distress. She is maintaining good O2 saturations in the 90s on 4 L/min per nasal cannula. She remains afebrile. Hem odynamically stable. Glucose 133. She remains on DuoNeb and elations, Symbicort, Solu-Medrol. Heparin for DVT prophylaxis. Mucinex for her cough and congestion. Follow-up chest x-ray reveals no acute pulmonary process. The patient is seen today June 14, 2024 in follow-up on the regular medical floor. She is currently resting comfortably in bed. Awake and alert in no acute distress. She is maintaining good O2 saturations in the 90s on 4 L/min per nasal cannula. Lungs are sounding much clearer. She was having some complaints of right shoulder pain. X-ray shows no acute abnormalities. Spine x-ray revealed degenerative disc changes with spondylosis within the cervical spine greatest at C5-6, C6-7. Glucose 104. She is continued on DuoNeb inhalations, Symbicort, prednisone taper. She remains on Mucinex along with Robitussin as needed. Cough is much improved. The patient is seen today June 16, 2024 in follow-up on the regular medical floor. She is currently awake and alert in no acute distress. Still having some left shoulder and neck pain. She is having higher oxygen requirements currently on 6 L high flow nasal cannula. She is afebrile. Hemodynamically s table. Chest x-ray reveals a retrocardiac infiltrate, possible pneumonia. Her initial procalcitonin was 0.06, currently 2.55. Glucose 144. She has been initiated on Zosyn. Continued on DuoNeb inhalations, Symbicort, prednisone taper. Heparin for DVT prophylaxis. The patient is seen today June 17, 2024 in follow-up on the regular medical floor. She is currently resting in bed. Awake and alert in no acute distress. Still having some neck and shoulder discomfort. She denies any worsening shortness of breath, cough or congestion. She is maintaining O2 saturations in the 90s on 6 L high flow nasal cannula. She remains on Zosyn. Remains on DuoNeb inhalations, Symbicort, prednisone taper. Continued on Mucinex. Heparin for DVT prophylaxis. Glucose 144. The patient is seen today June 18, 2024 in follow-up on the regular medical floor. She is up in a chair at the bedside. Awake and alert in no acute distress. She is maintaining good O2 saturations in the 90s on 4 L/min per n radha cannula. Afebrile. Hemodynamically stable. CT scan of the chest revealed small left and minimal right pleural effusions with adjacent compressive atelectasis. Pleural-based density posterior lateral left upper lung field. 10.4. Platelets 176. Sodium 134. Potassium 4.4. Bicarb 28. BUN 19. Creatinine 0.8. Glucose 167. She is on heparin for DVT prophylaxis. Continued on bronchodilators and steroids. Continued on Zosyn. Continued on Mucinex. Encouraged regarding the increased use of the incentive spirometer. The patient is seen today June 19, 2024 in follow-up on the regular medical floor. She is resting comfortably in bed. Awake and alert in no acute distress. Maintaining O2 saturations in the 90s on 3 L/min per nasal cannula. She remains on DuoNeb inhalations, Symbicort, prednisone taper. Continued on Zosyn. Glucose 142. Objective - Vital Signs Vital signs: Vital Signs Temp 97.9 F 06/19/24 13:12 Pulse 90 06/19/24 13:12 Resp 18 06/19/24 13:12 BP 150/83 06/19/24 13:12 Pulse Ox 90 L 06/19/24 13:12 FiO2 Intake & Output 06/18/24 06/19/24 06/19/24 18:59 06:59 18:59 Weight 72.5 kg Other: Voiding Method Bedside Commode Bedside Commode # Voids 1 1 1 # Bowel Movements 0 1 - Exam GENERAL EXAM: Alert, 83-year-old female, on 3 L nasal cannula, in no apparent distress. HEAD: Normocephalic. EYES: Normal reaction of pupils, equal size. NOSE: Clear with pink turbinates. THROAT: No erythema or exudates. NECK: No masses, no JVD. CHEST: No chest wall deformity. LUNGS: Equal air entry with faint crackles in the left base. CVS: S1 and S2 normal with no audible murmur, regular rhythm. ABDOMEN: No hepatosplenomegaly, normal bowel sounds, no guarding or rigidity. SPINE: No scoliosis or deformity SKIN: No rashes CENTRAL NERVOUS SYSTEM: No focal deficits, tone is normal in all 4 extremities. EXTREMITIES: There is no peripheral edema. No clubbing, no cyanosis. Peripheral pulses are intact. - Labs CBC & Chem 7: 06/18/24 05:35 06/18/24 05:35 Labs: Abnormal Lab Results - Last 24 Hours (Table) 06/18/24 06/18/24 06/19/24 Range/Units 17:20 20:52 06:25 POC Glucose (mg/dL) 151 H 166 H 118 H (70-110) mg/dL 06/19/24 Range/Units 11:12 POC Glucose (mg/dL) 142 H (70-110) mg/dL Assessment and Plan Assessment: Acute exacerbation of COPD with secondary shortness of breath, failed outpatient treatment. Chest x-ray now showing retrocardiac infiltrate. Procalcitonin initially negative at 0.06, currently 2.55. Initiated on Zosyn. CT scan of the chest revealed small and minimal right pleural effusions with adjacent compressive atelectasis. Pleural base density posterior lateral left upper lung field. Atelectasis versus pneumonia versus mass. Acute RSV infection exacerbating her underlying COPD Acute on chronic hypoxic respiratory failure currently on 3 L of oxygen by nasal cannula, utilizes home oxygen at night Degenerative arthritis with right shoulder pain. 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 shoulders with multiple orthopedic interventions surgery in the past History of skin cancer removed History of migraines Hypothyroidism and the patient has undergone previous partial thyroidectomy Plan: The patient was seen and evaluated Labs and medications reviewed Cleared for discharge Home oxygen has been set up Currently on 3 L nasal cannula Complete a prednisone taper Continue her home Trelegy and albuterol Will need follow-up CT scan in 3 months Follow-up in our office in 1 week I have personally seen and examined the patient, performed the documentation and the assessment and plan as written. Number of minutes spent on the visit: 10 Dictation was produced using [email or web address] dictation software. Please excuse any grammatical, word or spelling errors.
[2024-06-19] MEDS: CALCIUM CARBONATE 500 MG CHEWABLE PO PRN (15:42)
[2024-06-19 16:43] LABS: Glucose,Whole Blood 150 mg/dL (70-110)
[2024-06-19 20:09] LABS: Glucose,Whole Blood 148 mg/dL (70-110)
[2024-06-20 06:29] LABS: Glucose,Whole Blood 93 mg/dL (70-110)
[2024-06-20 11:24] LABS: Glucose,Whole Blood 129 mg/dL (70-110)
--- NOTE | 2024-06-20 13:18 | P.PN ---
Subjective Progress Note Date: 06/20/24 This is an 83-year-old female patient, known to have COPD, uses albuterol rescue inhaler only on an as-needed basis. She also has a nebulizer at home. The patient presented with worsening shortness of breath, cough congestion chest tightness or wheezing. Symptoms started approximately 2 weeks ago. She was given amoxicillin, and Medrol Dosepak on outpatient basis. She was given the same treatment approximately 4 days ago. Nevertheless, her condition decompensated and she was getting more short of breath and for that reason she ended up coming into the emergency department. She tested positive for RSV. The chest x-ray shows no acute abnormalities. There are some cardiomegaly and mild pulm vessel congestion. CAT scan of the abdomen and pelvis was also done in the emergency department as the patient was complaining of some vague abdominal pain. The patient was found to have sigmoid diverticulosis without diverticulitis. The patient also had fecal debris's with narrowing caliber matamoros ge of the sigmoid colon as previously described anastomosis. The patient's white cell count is at 8.2 with a hemoglobin 11.6 and a platelet count of 251. BUN is 23 with a creatinine of 0.7 and a sodium level is 137 and a potassium level is at 4.3 Noted the patient has undergone previous colectomy for a complicated diverticulitis with colostomy and subsequent reversal. She has COPD. She has skin cancer. She has thyroid disease. 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 She suffers from degenerative arthritis. She has multiple joint surgeries involving the knees and she has undergone total hip replacement and shoulder surgeries. The patient is seen today June 12, 2024 in follow-up on the regular medical floor. She is currently sitting up in bed. Awake and alert in no acute distress. She denies any worsening shortness of breath, cough or congestion. She is maintaining O2 saturations in the 90s on 4 L/min per nasal cannula. She is having some issues with nausea. CT scan of the abdomen revealed fecal debris with narrowing caliber change of the sigmoid colon at the anastomosis. Mild narrowing may be present. Distal sigmoid colon contains diverticulosis without acute diverticulitis. Echocardiogram revealed preserved left ventricular systolic function with ejection fraction 45 to 50%. Glucose 173. She is continued on DuoNeb and elations, Symbicort, Solu-Medrol. Heparin for DVT prophylaxis. Remains on Mucinex and Robitussin for her occasional cough. The patient is seen today June 13, 2024 in follow-up on the regular medical floor. She is awake and alert in no acute distress. She is maintaining good O2 saturations in the 90s on 4 L/min per nasal cannula. She remains afebrile. Hem odynamically stable. Glucose 133. She remains on DuoNeb and elations, Symbicort, Solu-Medrol. Heparin for DVT prophylaxis. Mucinex for her cough and congestion. Follow-up chest x-ray reveals no acute pulmonary process. The patient is seen today June 14, 2024 in follow-up on the regular medical floor. She is currently resting comfortably in bed. Awake and alert in no acute distress. She is maintaining good O2 saturations in the 90s on 4 L/min per nasal cannula. Lungs are sounding much clearer. She was having some complaints of right shoulder pain. X-ray shows no acute abnormalities. Spine x-ray revealed degenerative disc changes with spondylosis within the cervical spine greatest at C5-6, C6-7. Glucose 104. She is continued on DuoNeb inhalations, Symbicort, prednisone taper. She remains on Mucinex along with Robitussin as needed. Cough is much improved. The patient is seen today June 16, 2024 in follow-up on the regular medical floor. She is currently awake and alert in no acute distress. Still having some left shoulder and neck pain. She is having higher oxygen requirements currently on 6 L high flow nasal cannula. She is afebrile. Hemodynamically s table. Chest x-ray reveals a retrocardiac infiltrate, possible pneumonia. Her initial procalcitonin was 0.06, currently 2.55. Glucose 144. She has been initiated on Zosyn. Continued on DuoNeb inhalations, Symbicort, prednisone taper. Heparin for DVT prophylaxis. The patient is seen today June 17, 2024 in follow-up on the regular medical floor. She is currently resting in bed. Awake and alert in no acute distress. Still having some neck and shoulder discomfort. She denies any worsening shortness of breath, cough or congestion. She is maintaining O2 saturations in the 90s on 6 L high flow nasal cannula. She remains on Zosyn. Remains on DuoNeb inhalations, Symbicort, prednisone taper. Continued on Mucinex. Heparin for DVT prophylaxis. Glucose 144. The patient is seen today June 18, 2024 in follow-up on the regular medical floor. She is up in a chair at the bedside. Awake and alert in no acute distress. She is maintaining good O2 saturations in the 90s on 4 L/min per n radha cannula. Afebrile. Hemodynamically stable. CT scan of the chest revealed small left and minimal right pleural effusions with adjacent compressive atelectasis. Pleural-based density posterior lateral left upper lung field. 10.4. Platelets 176. Sodium 134. Potassium 4.4. Bicarb 28. BUN 19. Creatinine 0.8. Glucose 167. She is on heparin for DVT prophylaxis. Continued on bronchodilators and steroids. Continued on Zosyn. Continued on Mucinex. Encouraged regarding the increased use of the incentive spirometer. The patient is seen today June 19, 2024 in follow-up on the regular medical floor. She is resting comfortably in bed. Awake and alert in no acute distress. Maintaining O2 saturations in the 90s on 3 L/min per nasal cannula. She remains on DuoNeb inhalations, Symbicort, prednisone taper. Continued on Zosyn. Glucose 142. The patient is seen today June 20, 2024 in follow-up on the regular medical floor. She is currently sitting up in a chair. Awake and alert in no acute distress. Denies any worsening shortness of breath, cough or congestion. She is down to oxygen at 3 L/min per nasal cannula. She is continued on DuoNeb inhalations, Symbicort, Mucinex, prednisone taper. Objective - Vital Signs Vital signs: Vital Signs Temp 98.2 F 06/20/24 07:02 Pulse 78 06/20/24 12:27 Resp 18 06/20/24 07:02 BP 154/81 06/20/24 07:02 Pulse Ox 94 L 06/20/24 09:18 FiO2 Intake & Output 06/19/24 06/20/24 06/20/24 18:59 06:59 18:59 Intake Total 240 Balance 240 Weight 71 kg Intake: Oral 240 Other: Voiding Method Bedside Commode Toilet Bedside Commode # Voids 1 2 # Bowel Movements 1 2 - Exam GENERAL EXAM: Alert, pleasant 83-year-old female, sitting up in a chair, on 3 L nasal cannula, in no apparent distress. HEAD: Normocephalic. EYES: Normal reaction of pupils, equal size. NOSE: Clear with pink turbinates. THROAT: No erythema or exudates. NECK: No masses, no JVD. CHEST: No chest wall deformity. LUNGS: Equal air entry with faint crackles in the left base. CVS: S1 and S2 normal with no audible murmur, regular rhythm. ABDOMEN: No hepatosplenomegaly, normal bowel sounds, no guarding or rigidity. SPINE: No scoliosis or deformity SKIN: No rashes CENTRAL NERVOUS SYSTEM: No focal deficits, tone is normal in all 4 extremities. EXTREMITIES: There is no peripheral edema. No clubbing, no cyanosis. Peripheral pulses are intact. - Labs CBC & Chem 7: 06/18/24 05:35 06/18/24 05:35 Labs: Abnormal Lab Results - Last 24 Hours (Table) 06/19/24 06/19/24 06/20/24 Range/Units 16:36 20:08 11:23 POC Glucose (mg/dL) 150 H 148 H 129 H (70-110) mg/dL Assessment and Plan Assessment: Acute exacerbation of COPD with secondary shortness of breath, failed outpatient treatment. Chest x-ray now showing retrocardiac infiltrate. Procalcitonin initially negative at 0.06, currently 2.55. CT scan of the chest revealed small and minimal right pleural effusions with adjacent compressive atelectasis. Pleural base density posterior lateral left upper lung field. Atelectasis versus pneumonia versus mass. Completed a course of Zosyn Acute RSV infection exacerbating her underlying COPD Acute on chronic hypoxic respiratory failure currently on 3 L of oxygen by nasal cannula, utilizes home oxygen at night Degenerative arthritis with right shoulder pain. 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 shoulders with multiple orthopedic interventions surgery in the past History of skin cancer removed History of migraines Hypothyroidism and the patient has undergone previous partial thyroidectomy Plan: The patient was seen and evaluated Labs and medications reviewed Completed a course of Zosyn Cleared for discharge Home oxygen has been set up Complete a prednisone taper Continue her home Trelegy and albuterol Will need follow-up CT scan in 3 months Follow-up in our office in 1 week I have personally seen and examined the patient, performed the documentation and the assessment and plan as written. Number of minutes spent on the visit: 10 Dictation was produced using [employer] dictation software. Please excuse any grammatical, word or spelling errors.
[2024-06-20 13:24] VITALS: BP 124/78; TEMP 98.1
[2024-06-20] MEDS ORDERED: methylPREDNISolone ACETATE 80 MG/ML 1 ML VIAL ONE (14:18)
[2024-06-20] MEDS ORDERED: ROPIVACAINE 5MG/ML 20ML VIAL ONE (14:18)
--- NOTE | 2024-06-20 14:31 | P.PCN ---
Description of Procedure: Preprocedure diagnosis. Myofascial pain. Myofascial trigger point. Postprocedure diagnosis. As above. Procedure done. Myofascial trigger point injection with local anesthetics and steroid at 4 points. Anesthesia. Local anesthetic infiltration. In the OR continuous pulse ox, EKG, blood pressure, and verbal communication was maintained with the patient. Blood loss. None. Indication. Discussed with the patient procedure, alternatives and possible complications which may include infection, bleeding, nerve damage, aggravation of pain. Patient understands and all questions were answered. As patient may have a component of pain originating from cervical spine, will order an cervical spine MRI without contrast. If indicated after MRI, patient may get cervical epidural steroid injection as an outpatient or inpatient if still in hospital. Procedure note. After getting consent patient in the procedure area. Most tender points were identified and marked. A 25-gauge needle attached to syringe was introduced at the trigger points and after negative aspiration 5 mL solution are injected at each trigger point which consists of 0.5% ropivacaine mixed with 20 mg of Depo-Medrol. I injected 1 trigger points in left rhomboid and 3 in left trapezius muscle . Total solution consists of 20 ml 0.5%Ropivacaine mixed with 80 mg Depomedrol. Disposition. Patient tolerated the procedure well. No complication. Discharged home in stable condition.
[2024-06-20 16:08] LABS: Glucose,Whole Blood 137 mg/dL (70-110)
[2024-06-20 16:23] VITALS: PULSE 86
[2024-06-21] MEDS ORDERED: predniSONE 20 MG TAB PO SCH (09:00)
== END 2024-06-20 17:23 | disposition home health service (06) | DRG 189 ==
LOC: EC 16:28 → 3SCARD 18:06 → 4SSUR 06-11 23:04
PROVIDERS: ADMIT Hospitalist; ATTEND Hospitalist
PROC: 05HA33Z Insertion of Infusion Device into Left Brachial Vein, Percutaneous Approach (ICD-10-PCS; principal; 2024-06-10)
PROC: 3E0233Z Introduction of Anti-inflammatory into Muscle, Percutaneous Approach (ICD-10-PCS; 2024-06-20)
PROC: 3E023BZ Introduction of Anesthetic Agent into Muscle, Percutaneous Approach (ICD-10-PCS; 2024-06-20)
DX: J96.21 Acute and chronic respiratory failure with hypoxia (principal); J18.9 Pneumonia, unspecified organism; J21.0 Acute bronchiolitis due to respiratory syncytial virus; I42.9 Cardiomyopathy, unspecified; M47.12 Other spondylosis with myelopathy, cervical region; I11.0 Hypertensive heart disease with heart failure; J44.1 Chronic obstructive pulmonary disease with (acute) exacerbation; E66.9 Obesity, unspecified; E89.0 Postprocedural hypothyroidism; I08.3 Combined rheumatic disorders of mitral, aortic and tricuspid valves; J44.0 Chronic obstructive pulmonary disease with (acute) lower respiratory infection; M50.023 Cervical disc disorder at C6-C7 level with myelopathy; I50.9 Heart failure, unspecified; Z93.3 Colostomy status; Z11.52 Encounter for screening for COVID-19; F41.0 Panic disorder [episodic paroxysmal anxiety]; I95.1 Orthostatic hypotension; K57.30 Diverticulosis of large intestine without perforation or abscess without bleeding; G43.909 Migraine, unspecified, not intractable, without status migrainosus; M50.123 Cervical disc disorder at C6-C7 level with radiculopathy; Z68.29 Body mass index [BMI] 29.0-29.9, adult; M19.90 Unspecified osteoarthritis, unspecified site; E78.5 Hyperlipidemia, unspecified; F17.210 Nicotine dependence, cigarettes, uncomplicated; Z96.641 Presence of right artificial hip joint; Z95.0 Presence of cardiac pacemaker; M47.22 Other spondylosis with radiculopathy, cervical region; Z88.5 Allergy status to narcotic agent; Z79.890 Hormone replacement therapy; Z79.899 Other long term (current) drug therapy; Z80.41 Family history of malignant neoplasm of ovary; Z85.828 Personal history of other malignant neoplasm of skin; Z87.01 Personal history of pneumonia (recurrent); Z87.11 Personal history of peptic ulcer disease; Z90.49 Acquired absence of other specified parts of digestive tract; Z90.710 Acquired absence of both cervix and uterus; Z96.611 Presence of right artificial shoulder joint; Z87.19 Personal history of other diseases of the digestive system; Z88.6 Allergy status to analgesic agent; Z91.041 Radiographic dye allergy status
CPT/HCPCS: 20553; 36415; 71045; 71046; 71250; 72050; 74176; 80048; 80053; 83036; 83605; 83735; 83880; 84100; 84145; 84484; 85025; 85610; 85730; 87636; 93005; 93306; 94640; 94760; 96374; 99291

== ENCOUNTER 2024-06-23 04:28 | Inpatient (IN) | payer MEDICARE, BC ==
--- NOTE | 2024-06-23 05:10 | ED ---
SOB HPI - General Chief Complaint: Shortness of Breath Stated Complaint: Shortness of breath Time Seen by Provider: 06/23/24 04:35 Source: patient, EMS Mode of arrival: EMS - History of Present Illness Initial Comments: 83-year-old female with past medical history of COPD who presents to the emergency department with shortness of breath. Patient was recently hospital ized for RSV and pneumonia. She was discharged home on oxygen. States she has been wearing 3 L. Last night the patient was extremely short of breath. She was hypoxic in the 80s. She was given a DuoNeb breathing treatment and 4 [address] of Zofran on the way into the hospital. Patient admits to continued cough. Admits to worsening lower extremity edema. States that she is taking Lasix at home but continues to swell. She denies any chest pain. No fevers. She was discharged home on a steroid taper and has been taking it. Denies abdominal pain. No changes in her bowel or bladder habits. No other alleviating, precipitating modifying factors - Related Data Home Medications Medication Instructions Recorded Confirmed Albuterol Inhaler [Ventolin Hfa 2 puff INHALATION RT-Q4H PRN 05/09/18 06/23/24 Inhaler] Fluticasone/Umeclidin/Vilanter 1 puff INHALATION RT-DAILY 06/10/24 06/23/24 [Trelegy Ellipta 200-62.5-25] Levothyroxine Sodium [Synthroid] 125 mcg PO DAILY 06/10/24 06/23/24 Losartan Potassium 100 mg PO DAILY 06/10/24 06/23/24 NIFEdipine XL [Procardia XL] 90 mg PO DAILY 06/10/24 06/23/24 Lidocaine 4% Cream [Lmx 4] 1 applic TOPICAL DAILY 06/23/24 06/23/24 Potassium Chloride [Klor-Con 10 ER] 10 meq PO DAILY 06/23/24 06/23/24 guaiFENesin-DM 600/30MG [Mucinex 1 tab PO Q12HR PRN 06/23/24 06/23/24 Dm] Previous Rx's Medication Instructions Recorded Benzonatate [Tessalon Perles] 200 mg PO TID PRN 7 Days #21 cap 06/15/24 Docusate [Colace] 100 mg PO BID #60 cap 06/15/24 Lactulose [Cephulac] 30 gm PO BID PRN 7 Days #300 ml 06/15/24 Pantoprazole [Protonix] 40 mg PO AC-BID #60 tab 06/15/24 Acetaminophen Tab [Tylenol] 325 mg PO Q6HR PRN tab 06/20/24 methocarbamoL [Robaxin] 500 mg PO QID PRN #30 tab 06/20/24 Furosemide [Lasix] 40 mg PO DAILY tab 07/01/24 Gabapentin [Neurontin] 300 mg PO HS cap 07/01/24 Heparin Sodium,Porcine (1 ml) 5,000 unit SQ Q12HR each 07/01/24 [Heparin Sodium] Lactulose [Cephulac] 20 gm PO BID PRN ml 07/01/24 Lidocaine 4% Patch 1 patch TOPICAL HS patch 07/01/24 Nystatin 100,000 Unit/ml Susp 3,000,000 unit PO TID ml 07/01/24 [Mycostatin Oral Susp] ceFAZolin [Kefzol] 2,000 mg IVPB Q8H 10 Days #30 each 07/01/24 Allergies Allergy/AdvReac Type Severity Reaction Status Date / Time hydrocodone AdvReac Nausea & Verified 06/23/24 07:33 Vomiting hydrocodone bitartrate AdvReac Nausea & Verified 06/23/24 07:33 [From Vicodin] Vomiting hydromorphone [From Dilaudid] AdvReac Vomiting Verified 06/23/24 07:33 Iodinated Contrast Media AdvReac Nausea & Verified 06/23/24 07:33 [Iodinated Contrast- Oral Vomiting and IV Dye] grass,mold,dust,cats,trees Allergy Unknown Uncoded 06/23/24 04:37 Review of Systems ROS Statement: Those systems with pertinent positive or pertinent negative responses have been documented in the HPI. ROS Other: All systems not noted in ROS Statement are negative. 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 History of Any Multi-Drug Resistant Organisms: None Reported Past Surgical History: Appendectomy, Hernia Repair, Hysterectomy, Joint Replacement, Orthopedic Surgery, Pacemaker, Tonsillectomy Additional Past Surgical History / Comment(s): LAPROSCOPIC LYSIS OF ADHESIONS WITH COLECTOMY, TTT, pacemaker, skin cancer removal L cheek/skin graft, inguinal hernia repairs x3, BECCA total knee bilateral knee arthroscopies, partial thyroidectomy, pain clinic procedures (cervical), bilateral lasik eye surgery for vision correction. right shoulder replacement, bowel resection on 05/13/[address] Hutton rt hip replaced, Past Anesthesia/Blood Transfusion Reactions: No Reported Reaction Type of Cardiac Device: Permanent Pacemaker Device Placement Date:: 2015 Past Psychological History: No Psychological Hx Reported Smoking Status: Former smoker Past Alcohol Use History: Occasional Past Drug Use History: None Reported - Past Family History Son(s) Family Medical History: Cancer Additional Family Medical History / Comment(s): TESTICULAR CA IN SONS X2 Daughter(s) Family Medical History: Cancer Additional Family Medical History / Comment(s): OVARIAN CANCER Mother Family Medical History: Cancer Additional Family Medical History / Comment(s): STOMACH CANCER Father Family Medical History: No Reported History Additional Family Medical History / Comment(s): Father was healthy General Exam General appearance: alert, in no apparent distress Head exam: Present: atraumatic, normocephalic, normal inspection Eye exam: Present: normal appearance, PERRL, EOMI. Absent: scleral icterus, conjunctival injection, periorbital swelling ENT exam: Present: normal exam, mucous membranes moist Neck exam: Present: normal inspection. Absent: tenderness, meningismus, lymphadenopathy Respiratory exam: Present: wheezes, decreased breath sounds. Absent: respiratory distress, rales, rhonchi, stridor Cardiovascular Exam: Present: regular rate, normal rhythm, normal heart sounds. Absent: systolic murmur, diastolic murmur, rubs, gallop, clicks GI/Abdominal exam: Present: soft, normal bowel sounds. Absent: distended, tenderness, guarding, rebound, rigid Extremities exam: Present: normal inspection, full ROM, normal capillary refill. Absent: tenderness, pedal edema, joint swelling, calf tenderness Back exam: Present: normal inspection Neurological exam: Present: alert, oriented X3, CN II-XII intact Psychiatric exam: Present: normal affect, normal mood Skin exam: Present: warm, dry, intact, normal color. Absent: rash Course Vital Signs 06/23/24 06/23/24 06/23/24 04:31 04:35 06:37 Temperature 98.2 F Pulse Rate 95 90 Respiratory 22 22 20 Rate Blood Pressure 111/62 101/57 O2 Sat by Pulse 93 L 93 L Oximetry 06/23/24 06/23/24 06/23/24 07:30 08:08 08:19 Temperature 98.8 F Pulse Rate 86 84 86 Respiratory 18 Rate Blood Pressure 106/58 O2 Sat by Pulse 90 L Oximetry 06/23/24 06/23/24 06/23/24 10:04 10:47 11:05 Temperature Pulse Rate 87 85 84 Respiratory 18 18 Rate Blood Pressure 120/61 106/63 O2 Sat by Pulse 98 95 Oximetry 06/23/24 06/23/24 06/23/24 11:21 12:00 14:05 Temperature 98.9 F Pulse Rate 84 84 80 Respiratory 18 18 Rate Blood Pressure 128/61 O2 Sat by Pulse 94 L 96 Oximetry 06/23/24 14:35 Temperature 98.0 F Pulse Rate 71 Respiratory 18 Rate Blood Pressure 120/76 O2 Sat by Pulse 98 Oximetry Medical Decision Making - Medical Decision Making Was pt. sent in by a medical professional or institution (, PA, PELT SALTER, urgent care, hospital, or residential...) When possible be specific @ -No Did you speak to anyone other than the patient for history (EMS, parent, family, police, friend...)? What history was obtained from this source @ -Spoke with EMS for history Did you review nursing and triage notes (agree or disagree)? Why? @ -I reviewed and agree with nursing and triage notes Were old charts reviewed (outside hosp., previous admission, EMS record, old EKG, old radiological studies, urgent care reports/EKG's, residential records)? Report findings @ -I reviewed the chest CT without was performed on June 16 Differential Diagnosis (chest pain, altered mental status, abdominal pain women, abdominal pain men, vaginal bleeding, weakness, fever, dyspnea, syncope, headache, dizziness, GI bleed, back pain, seizure, CVA, palpatations, mental hea lth, musculoskeletal)? @ -Differential Dyspnea: Coronary syndrome, arrhythmia, tamponade, asthma, COPD, pulmonary embolism, pneumonia, pneumothorax, pulmonary effusion, anaphylaxis, diabetic ketoacidosis, flailed chest, pulmonary contusion, diaphragmatic rupture, anemia, neuromuscular, this is not meant to be an all-inclusive list. EKG interpreted by me (3pts min.). @ -Yes and demonstrates sinus rhythm with a rate of 93. WI interval 184. QRS 95. QTc of 379. No acute ST segment elevations or depressions X-rays interpreted by me (1pt min.). @ -Yes which demonstrates pleural effusion and cardiomegaly CT interpreted by me (1pt min.). @ -None done U/S interpreted by me (1pt. min.). @ -None done What testing was considered but not performed or refused? (CT, X-rays, U/S, labs)? Why? @ -None What meds were considered but not given or refused? Why? @ -None Did you discuss the management of the patient with other professionals (professionals i.e. , PA, PELT SALTER, lab, RT, psych nurse, delinquency prevention social worker, cnc machine setter, teacher, loan workout officer, window caser)? Give summary @ -Spoke with Sima from [facility] for admission Was smoking cessation discussed for >3mins.? @ -No Was critical care preformed (if so, how long)? @ -No Were there social determinants of health that impacted care today? How? (Homelessness, low income, unemployed, alcoholism, drug addiction, transportation, low edu. Level, literacy, decrease access to med. care, penitentiary, rehab)? @ -No Was there de-escalation of care discussed even if they declined (Discuss DNR or withdrawal of care, Hospice)? DNR status @ -No What co-morbidities impacted this encounter? (DM, HTN, Smoking, COPD, CAD, Cancer, CVA, ARF, Chemo, Hep., AIDS, mental health diagnosis, sleep apnea, morbid obesity)? @ -COPD Was patient admitted / discharged? Hospital course, mention meds given and route, prescriptions, significant lab abnormalities, going to OR and other pertinent info. @ -Upon arrival patient seen and evaluated in bed 3. Thorough history and physical exam was performed. Patient is on supplemental oxygen. She was given a breathing treatment. Laboratory studies are conducted and chest x-ray was performed. Patient is initiated on antibiotics, breathing treatments and Lasix. I recommended admission for pulmonology and cardiology consultation. Patient was agreeable to this. I spoke with Sima from [facility] for the admission Undiagnosed new problem with uncertain prognosis? @ -No Drug Therapy requiring intensive monitoring for toxicity (Heparin, Nitro, Insulin, Cardizem)? @ -No Were any procedures done? @ -No Diagnosis/symptom? @ -Acute respiratory insufficiency, chronic respiratory failure, acute exacerbation of COPD, possible diagnosis of heart failure, recent diagnosis of pneumonia Acute, or Chronic, or Acute on Chronic? @ -Acute on chronic Uncomplicated (without systemic symptoms) or Complicated (systemic symptoms)? @ -Complicated Side effects of treatment? @ -No Exacerbation, Progression, or Severe Exacerbation? @ -Yes Poses a threat to life or bodily function? How? (Chest pain, USA, CA, pneumonia, PE, COPD, DKA, ARF, appy, cholecystitis, CVA, Diverticulitis, Homicidal, Suicidal, threat to staff... and all critical care pts) @ -No - Lab Data Result diagrams: 06/28/24 06:08 07/01/24 03:31 Lab Results 06/23/24 06/23/24 06/23/24 Range/Units 04:40 04:43 04:43 WBC 48.4 H (3.8-10.6) k/uL RBC 3.73 L (3.80-5.40) m/uL Hgb 11.3 L (11.4-16.0) gm/dL Hct 36.6 (34.0-46.0) % MCV 98.1 (80.0-100.0) fL MCH 30.4 (25.0-35.0) pg MCHC 31.0 (31.0-37.0) g/dL RDW 15.0 (11.5-15.5) % Plt Count 254 (150-450) k/uL MPV 7.8 Neutrophils % % Neutrophils % (Manual) 83 % Band Neuts % (Manual) 16 % Lymphocytes % % Lymphocytes % (Manual) 1 % Monocytes % % Monocytes % (Manual) 1 % Eosinophils % % Basophils % % Neutrophils # (1.3-7.7) k/uL Neutrophils # (Manual) 47.90 H (1.3-7.7) k/uL Lymphocytes # (1.0-4.8) k/uL Lymphocytes # (Manual) 0.48 L (1.0-4.8) k/uL Monocytes # (0-1.0) k/uL Monocytes # (Manual) 0.48 (0-1.0) k/uL Eosinophils # (0-0.7) k/uL Basophils # (0-0.2) k/uL Nucleated RBCs 0 (0-0) /100 WBC Manual Slide Review Performed Hypochromasia PT 10.6 (10.0-12.5) sec INR 1.0 (<1.2) APTT 22.5 (22.0-30.0) sec Sodium (137-145) mmol/L Potassium (3.5-5.1) mmol/L Chloride (98-107) mmol/L Carbon Dioxide (22-30) mmol/L Anion Gap mmol/L BUN (7-17) mg/dL Creatinine (0.52-1.04) mg/dL Est GFR (CKD-EPI) (>=60) Est GFR (CKD-EPI)AfAm (>60 ml/min/1.73 sqM) Est GFR (CKD-EPI)NonAf (>60 ml/min/1.73 sqM) BUN/Creatinine Ratio (12.00-20.00) Ratio Glucose (74-99) mg/dL POC Glucose (mg/dL) (70-110) mg/dL POC Glu Sucker Machine Operator ID Plasma Lactic Acid Bryn (0.7-2.0) mmol/L Calcium (8.4-10.2) mg/dL Total Bilirubin (0.2-1.3) mg/dL AST (14-36) U/L ALT (4-34) U/L Alkaline Phosphatase (38-126) U/L Troponin I (0.000-0.034) ng/mL NT-Pro-B Natriuret Pep pg/mL Total Protein (6.3-8.2) g/dL Albumin (3.5-5.0) g/dL Globulin (1.6-3.3) g/dL Albumin/Globulin Ratio (1.60-3.17) Ratio Procalcitonin (0.02-0.50) ng/mL Urine Color Urine Appearance (Clear) Urine pH (5.0-8.0) Ur Specific Humphreys (1.001-1.035) Urine Protein (Negative) Urine Glucose (UA) (Negative) Urine Ketones (Negative) Urine Blood (Negative) Urine Nitrite (Negative) Urine Bilirubin (Negative) Urine Urobilinogen (<2.0) mg/dL Ur Leukocyte Esterase (Negative) Urine RBC (0-5) /hpf Urine WBC (0-5) /hpf Urine WBC Clumps (None) /hpf Ur Squamous Epith Cells (0-4) /hpf Urine Bacteria (None) /hpf Hyaline Casts (0-2) /lpf Urine Mucus (None) /hpf Urine Yeast (Budding) (None) /hpf Influenza Type A (PCR) Not Detected (Not Detectd) Influenza Type B (PCR) Not Detected (Not Detectd) RSV (PCR) Not Detected (Not Detectd) SARS-CoV-2 (PCR) Not Detected (Not Detectd) 06/23/24 06/23/24 06/23/24 Range/Units 04:43 04:43 04:43 WBC (3.8-10.6) k/uL RBC (3.80-5.40) m/uL Hgb (11.4-16.0) gm/dL Hct (34.0-46.0) % MCV (80.0-100.0) fL MCH (25.0-35.0) pg MCHC (31.0-37.0) g/dL RDW (11.5-15.5) % Plt Count (150-450) k/uL MPV Neutrophils % % Neutrophils % (Manual) % Band Neuts % (Manual) % Lymphocytes % % Lymphocytes % (Manual) % Monocytes % % Monocytes % (Manual) % Eosinophils % % Basophils % % Neutrophils # (1.3-7.7) k/uL Neutrophils # (Manual) (1.3-7.7) k/uL Lymphocytes # (1.0-4.8) k/uL Lymphocytes # (Manual) (1.0-4.8) k/uL Monocytes # (0-1.0) k/uL Monocytes # (Manual) (0-1.0) k/uL Eosinophils # (0-0.7) k/uL Basophils # (0-0.2) k/uL Nucleated RBCs (0-0) /100 WBC Manual Slide Review Hypochromasia PT (10.0-12.5) sec INR (<1.2) APTT (22.0-30.0) sec Sodium 130 L (137-145) mmol/L Potassium 5.5 H (3.5-5.1) mmol/L Chloride 94 L (98-107) mmol/L Carbon Dioxide 29 (22-30) mmol/L Anion Gap 7 mmol/L BUN 33 H (7-17) mg/dL Creatinine 0.95 (0.52-1.04) mg/dL Est GFR (CKD-EPI) (>=60) Est GFR (CKD-EPI)AfAm 64 (>60 ml/min/1.73 sqM) Est GFR (CKD-EPI)NonAf 56 (>60 ml/min/1.73 sqM) BUN/Creatinine Ratio (12.00-20.00) Ratio Glucose 136 H (74-99) mg/dL POC Glucose (mg/dL) (70-110) mg/dL POC Glu Sucker Machine Operator ID Plasma Lactic Acid Bryn 1.7 (0.7-2.0) mmol/L Calcium 8.7 (8.4-10.2) mg/dL Total Bilirubin 1.3 (0.2-1.3) mg/dL AST 86 H (14-36) U/L ALT 92 H (4-34) U/L Alkaline Phosphatase 260 H (38-126) U/L Troponin I 0.027 (0.000-0.034) ng/mL NT-Pro-B Natriuret Pep 3680 pg/mL Total Protein 5.9 L (6.3-8.2) g/dL Albumin 2.9 L (3.5-5.0) g/dL Globulin (1.6-3.3) g/dL Albumin/Globulin Ratio (1.60-3.17) Ratio Procalcitonin (0.02-0.50) ng/mL Urine Color Urine Appearance (Clear) Urine pH (5.0-8.0) Ur Specific Humphreys (1.001-1.035) Urine Protein (Negative) Urine Glucose (UA) (Negative) Urine Ketones (Negative) Urine Blood (Negative) Urine Nitrite (Negative) Urine Bilirubin (Negative) Urine Urobilinogen (<2.0) mg/dL Ur Leukocyte Esterase (Negative) Urine RBC (0-5) /hpf Urine WBC (0-5) /hpf Urine WBC Clumps (None) /hpf Ur Squamous Epith Cells (0-4) /hpf Urine Bacteria (None) /hpf Hyaline Casts (0-2) /lpf Urine Mucus (None) /hpf Urine Yeast (Budding) (None) /hpf Influenza Type A (PCR) (Not Detectd) Influenza Type B (PCR) (Not Detectd) RSV (PCR) (Not Detectd) SARS-CoV-2 (PCR) (Not Detectd) 06/23/24 06/23/24 06/23/24 Range/Units 04:43 17:45 21:45 WBC (3.8-10.6) k/uL RBC (3.80-5.40) m/uL Hgb (11.4-16.0) gm/dL Hct (34.0-46.0) % MCV (80.0-100.0) fL MCH (25.0-35.0) pg MCHC (31.0-37.0) g/dL RDW (11.5-15.5) % Plt Count (150-450) k/uL MPV Neutrophils % % Neutrophils % (Manual) % Band Neuts % (Manual) % Lymphocytes % % Lymphocytes % (Manual) % Monocytes % % Monocytes % (Manual) % Eosinophils % % Basophils % % Neutrophils # (1.3-7.7) k/uL Neutrophils # (Manual) (1.3-7.7) k/uL Lymphocytes # (1.0-4.8) k/uL Lymphocytes # (Manual) (1.0-4.8) k/uL Monocytes # (0-1.0) k/uL Monocytes # (Manual) (0-1.0) k/uL Eosinophils # (0-0.7) k/uL Basophils # (0-0.2) k/uL Nucleated RBCs (0-0) /100 WBC Manual Slide Review Hypochromasia PT (10.0-12.5) sec INR (<1.2) APTT (22.0-30.0) sec Sodium (137-145) mmol/L Potassium 4.6 (3.5-5.1) mmol/L Chloride (98-107) mmol/L Carbon Dioxide (22-30) mmol/L Anion Gap mmol/L BUN (7-17) mg/dL Creatinine (0.52-1.04) mg/dL Est GFR (CKD-EPI) (>=60) Est GFR (CKD-EPI)AfAm (>60 ml/min/1.73 sqM) Est GFR (CKD-EPI)NonAf (>60 ml/min/1.73 sqM) BUN/Creatinine Ratio (12.00-20.00) Ratio Glucose (74-99) mg/dL POC Glucose (mg/dL) (70-110) mg/dL POC Glu Sucker Machine Operator ID Plasma Lactic Acid Bryn (0.7-2.0) mmol/L Calcium (8.4-10.2) mg/dL Total Bilirubin (0.2-1.3) mg/dL AST (14-36) U/L ALT (4-34) U/L Alkaline Phosphatase (38-126) U/L Troponin I (0.000-0.034) ng/mL NT-Pro-B Natriuret Pep pg/mL Total Protein (6.3-8.2) g/dL Albumin (3.5-5.0) g/dL Globulin (1.6-3.3) g/dL Albumin/Globulin Ratio (1.60-3.17) Ratio Procalcitonin 16.40 H (0.02-0.50) ng/mL Urine Color Yellow Urine Appearance Cloudy H (Clear) Urine pH 5.5 (5.0-8.0) Ur Specific Humphreys 1.018 (1.001-1.035) Urine Protein Trace H (Negative) Urine Glucose (UA) Negative (Negative) Urine Ketones Negative (Negative) Urine Blood Large H (Negative) Urine Nitrite Negative (Negative) Urine Bilirubin Negative (Negative) Urine Urobilinogen <2.0 (<2.0) mg/dL Ur Leukocyte Esterase Large H (Negative) Urine RBC 61 H (0-5) /hpf Urine WBC 132 H (0-5) /hpf Urine WBC Clumps Few H (None) /hpf Ur Squamous Epith Cells <1 (0-4) /hpf Urine Bacteria Rare H (None) /hpf Hyaline Casts 1 (0-2) /lpf Urine Mucus Rare H (None) /hpf Urine Yeast (Budding) Rare H (None) /hpf Influenza Type A (PCR) (Not Detectd) Influenza Type B (PCR) (Not Detectd) RSV (PCR) (Not Detectd) SARS-CoV-2 (PCR) (Not Detectd) 06/24/24 06/24/24 06/24/24 Range/Units 06:05 06:05 20:32 WBC 29.3 H (3.8-10.6) k/uL RBC 3.40 L (3.80-5.40) m/uL Hgb 10.3 L (11.4-16.0) gm/dL Hct 33.8 L (34.0-46.0) % MCV 99.4 (80.0-100.0) fL MCH 30.3 (25.0-35.0) pg MCHC 30.5 L (31.0-37.0) g/dL RDW 14.7 (11.5-15.5) % Plt Count 197 (150-450) k/uL MPV 7.3 Neutrophils % 95 % Neutrophils % (Manual) % Band Neuts % (Manual) % Lymphocytes % 1 % Lymphocytes % (Manual) % Monocytes % 2 % Monocytes % (Manual) % Eosinophils % 1 % Basophils % 0 % Neutrophils # 27.9 H (1.3-7.7) k/uL Neutrophils # (Manual) (1.3-7.7) k/uL Lymphocytes # 0.4 L (1.0-4.8) k/uL Lymphocytes # (Manual) (1.0-4.8) k/uL Monocytes # 0.7 (0-1.0) k/uL Monocytes # (Manual) (0-1.0) k/uL Eosinophils # 0.2 (0-0.7) k/uL Basophils # 0.0 (0-0.2) k/uL Nucleated RBCs (0-0) /100 WBC Manual Slide Review Performed Hypochromasia Slight PT (10.0-12.5) sec INR (<1.2) APTT (22.0-30.0) sec Sodium 132 L (137-145) mmol/L Potassium 4.1 (3.5-5.1) mmol/L Chloride 95 L (98-107) mmol/L Carbon Dioxide 28.4 (22-30) mmol/L Anion Gap 8.60 mmol/L BUN 22.6 (7-17) mg/dL Creatinine 0.8 (0.52-1.04) mg/dL Est GFR (CKD-EPI) 73 (>=60) Est GFR (CKD-EPI)AfAm (>60 ml/min/1.73 sqM) Est GFR (CKD-EPI)NonAf (>60 ml/min/1.73 sqM) BUN/Creatinine Ratio 28.25 H (12.00-20.00) Ratio Glucose 118 H (74-99) mg/dL POC Glucose (mg/dL) 135 H (70-110) mg/dL POC Glu Sucker Machine Operator STERLING Williamson Plasma Lactic Acid Bryn (0.7-2.0) mmol/L Calcium 8.3 L (8.4-10.2) mg/dL Total Bilirubin 0.4 (0.2-1.3) mg/dL AST 52 H (14-36) U/L ALT 63 H (4-34) U/L Alkaline Phosphatase 226 H (38-126) U/L Troponin I (0.000-0.034) ng/mL NT-Pro-B Natriuret Pep pg/mL Total Protein 5.2 L (6.3-8.2) g/dL Albumin 2.5 L (3.5-5.0) g/dL Globulin 2.7 (1.6-3.3) g/dL Albumin/Globulin Ratio 0.93 L (1.60-3.17) Ratio Procalcitonin (0.02-0.50) ng/mL Urine Color Urine Appearance (Clear) Urine pH (5.0-8.0) Ur Specific Humphreys (1.001-1.035) Urine Protein (Negative) Urine Glucose (UA) (Negative) Urine Ketones (Negative) Urine Blood (Negative) Urine Nitrite (Negative) Urine Bilirubin (Negative) Urine Urobilinogen (<2.0) mg/dL Ur Leukocyte Esterase (Negative) Urine RBC (0-5) /hpf Urine WBC (0-5) /hpf Urine WBC Clumps (None) /hpf Ur Squamous Epith Cells (0-4) /hpf Urine Bacteria (None) /hpf Hyaline Casts (0-2) /lpf Urine Mucus (None) /hpf Urine Yeast (Budding) (None) /hpf Influenza Type A (PCR) (Not Detectd) Influenza Type B (PCR) (Not Detectd) RSV (PCR) (Not Detectd) SARS-CoV-2 (PCR) (Not Detectd) 06/25/24 06/25/24 06/25/24 Range/Units 06:12 07:42 08:24 WBC 23.6 H (3.8-10.6) k/uL RBC 3.61 L (3.80-5.40) m/uL Hgb 10.8 L (11.4-16.0) gm/dL Hct 35.6 (34.0-46.0) % MCV 98.8 (80.0-100.0) fL MCH 30.0 (25.0-35.0) pg MCHC 30.4 L (31.0-37.0) g/dL RDW 14.7 (11.5-15.5) % Plt Count 208 (150-450) k/uL MPV 7.9 Neutrophils % 97 % Neutrophils % (Manual) % Band Neuts % (Manual) % Lymphocytes % 1 % Lymphocytes % (Manual) % Monocytes % 1 % Monocytes % (Manual) % Eosinophils % 0 % Basophils % 0 % Neutrophils # 22.9 H (1.3-7.7) k/uL Neutrophils # (Manual) (1.3-7.7) k/uL Lymphocytes # 0.3 L (1.0-4.8) k/uL Lymphocytes # (Manual) (1.0-4.8) k/uL Monocytes # 0.3 (0-1.0) k/uL Monocytes # (Manual) (0-1.0) k/uL Eosinophils # 0.0 (0-0.7) k/uL Basophils # 0.0 (0-0.2) k/uL Nucleated RBCs (0-0) /100 WBC Manual Slide Review Hypochromasia PT (10.0-12.5) sec INR (<1.2) APTT (22.0-30.0) sec Sodium 129 L (137-145) mmol/L Potassium 5.5 H (3.5-5.1) mmol/L Chloride 94 L (98-107) mmol/L Carbon Dioxide 28 (22-30) mmol/L Anion Gap 7 mmol/L BUN 34 H (7-17) mg/dL Creatinine 0.75 (0.52-1.04) mg/dL Est GFR (CKD-EPI) (>=60) Est GFR (CKD-EPI)AfAm 85 (>60 ml/min/1.73 sqM) Est GFR (CKD-EPI)NonAf 74 (>60 ml/min/1.73 sqM) BUN/Creatinine Ratio (12.00-20.00) Ratio Glucose 120 H (74-99) mg/dL POC Glucose (mg/dL) 128 H (70-110) mg/dL POC Glu Sucker Machine Operator ID Phyllis Williamson Plasma Lactic Acid Bryn (0.7-2.0) mmol/L Calcium 8.2 L (8.4-10.2) mg/dL Total Bilirubin 0.8 (0.2-1.3) mg/dL AST 47 H (14-36) U/L ALT 56 H (4-34) U/L Alkaline Phosphatase 227 H (38-126) U/L Troponin I (0.000-0.034) ng/mL NT-Pro-B Natriuret Pep pg/mL Total Protein 6.1 L (6.3-8.2) g/dL Albumin 2.8 L (3.5-5.0) g/dL Globulin (1.6-3.3) g/dL Albumin/Globulin Ratio (1.60-3.17) Ratio Procalcitonin (0.02-0.50) ng/mL Urine Color Urine Appearance (Clear) Urine pH (5.0-8.0) Ur Specific Humphreys (1.001-1.035) Urine Protein (Negative) Urine Glucose (UA) (Negative) Urine Ketones (Negative) Urine Blood (Negative) Urine Nitrite (Negative) Urine Bilirubin (Negative) Urine Urobilinogen (<2.0) mg/dL Ur Leukocyte Esterase (Negative) Urine RBC (0-5) /hpf Urine WBC (0-5) /hpf Urine WBC Clumps (None) /hpf Ur Squamous Epith Cells (0-4) /hpf Urine Bacteria (None) /hpf Hyaline Casts (0-2) /lpf Urine Mucus (None) /hpf Urine Yeast (Budding) (None) /hpf Influenza Type A (PCR) (Not Detectd) Influenza Type B (PCR) (Not Detectd) RSV (PCR) (Not Detectd) SARS-CoV-2 (PCR) (Not Detectd) 06/25/24 06/25/24 06/25/24 Range/Units 11:21 16:20 20:47 WBC (3.8-10.6) k/uL RBC (3.80-5.40) m/uL Hgb (11.4-16.0) gm/dL Hct (34.0-46.0) % MCV (80.0-100.0) fL MCH (25.0-35.0) pg MCHC (31.0-37.0) g/dL RDW (11.5-15.5) % Plt Count (150-450) k/uL MPV Neutrophils % % Neutrophils % (Manual) % Band Neuts % (Manual) % Lymphocytes % % Lymphocytes % (Manual) % Monocytes % % Monocytes % (Manual) % Eosinophils % % Basophils % % Neutrophils # (1.3-7.7) k/uL Neutrophils # (Manual) (1.3-7.7) k/uL Lymphocytes # (1.0-4.8) k/uL Lymphocytes # (Manual) (1.0-4.8) k/uL Monocytes # (0-1.0) k/uL Monocytes # (Manual) (0-1.0) k/uL Eosinophils # (0-0.7) k/uL Basophils # (0-0.2) k/uL Nucleated RBCs (0-0) /100 WBC Manual Slide Review Hypochromasia PT (10.0-12.5) sec INR (<1.2) APTT (22.0-30.0) sec Sodium (137-145) mmol/L Potassium (3.5-5.1) mmol/L Chloride (98-107) mmol/L Carbon Dioxide (22-30) mmol/L Anion Gap mmol/L BUN (7-17) mg/dL Creatinine (0.52-1.04) mg/dL Est GFR (CKD-EPI) (>=60) Est GFR (CKD-EPI)AfAm (>60 ml/min/1.73 sqM) Est GFR (CKD-EPI)NonAf (>60 ml/min/1.73 sqM) BUN/Creatinine Ratio (12.00-20.00) Ratio Glucose (74-99) mg/dL POC Glucose (mg/dL) 126 H 121 H 137 H (70-110) mg/dL POC Glu Sucker Machine Operator ID Lily Yaquelin Lily Yaquelinchelsie Tang Plasma Lactic Acid Bryn (0.7-2.0) mmol/L Calcium (8.4-10.2) mg/dL Total Bilirubin (0.2-1.3) mg/dL AST (14-36) U/L ALT (4-34) U/L Alkaline Phosphatase (38-126) U/L Troponin I (0.000-0.034) ng/mL NT-Pro-B Natriuret Pep pg/mL Total Protein (6.3-8.2) g/dL Albumin (3.5-5.0) g/dL Globulin (1.6-3.3) g/dL Albumin/Globulin Ratio (1.60-3.17) Ratio Procalcitonin (0.02-0.50) ng/mL Urine Color Urine Appearance (Clear) Urine pH (5.0-8.0) Ur Specific Humphreys (1.001-1.035) Urine Protein (Negative) Urine Glucose (UA) (Negative) Urine Ketones (Negative) Urine Blood (Negative) Urine Nitrite (Negative) Urine Bilirubin (Negative) Urine Urobilinogen (<2.0) mg/dL Ur Leukocyte Esterase (Negative) Urine RBC (0-5) /hpf Urine WBC (0-5) /hpf Urine WBC Clumps (None) /hpf Ur Squamous Epith Cells (0-4) /hpf Urine Bacteria (None) /hpf Hyaline Casts (0-2) /lpf Urine Mucus (None) /hpf Urine Yeast (Budding) (None) /hpf Influenza Type A (PCR) (Not Detectd) Influenza Type B (PCR) (Not Detectd) RSV (PCR) (Not Detectd) SARS-CoV-2 (PCR) (Not Detectd) 06/26/24 06/26/24 06/26/24 Range/Units 04:36 04:36 06:12 WBC 20.3 H (3.8-10.6) k/uL RBC 3.22 L (3.80-5.40) m/uL Hgb 9.8 L (11.4-16.0) gm/dL Hct 31.9 L (34.0-46.0) % MCV 99.1 (80.0-100.0) fL MCH 30.4 (25.0-35.0) pg MCHC 30.7 L (31.0-37.0) g/dL RDW 14.4 (11.5-15.5) % Plt Count 227 (150-450) k/uL MPV 8.1 Neutrophils % 94 % Neutrophils % (Manual) % Band Neuts % (Manual) % Lymphocytes % 1 % Lymphocytes % (Manual) % Monocytes % 3 % Monocytes % (Manual) % Eosinophils % 0 % Basophils % 0 % Neutrophils # 19.2 H (1.3-7.7) k/uL Neutrophils # (Manual) (1.3-7.7) k/uL Lymphocytes # 0.3 L (1.0-4.8) k/uL Lymphocytes # (Manual) (1.0-4.8) k/uL Monocytes # 0.7 (0-1.0) k/uL Monocytes # (Manual) (0-1.0) k/uL Eosinophils # 0.0 (0-0.7) k/uL Basophils # 0.0 (0-0.2) k/uL Nucleated RBCs (0-0) /100 WBC Manual Slide Review Hypochromasia Slight PT (10.0-12.5) sec INR (<1.2) APTT (22.0-30.0) sec Sodium 132 L (137-145) mmol/L Potassium 3.8 (3.5-5.1) mmol/L Chloride 94 L (98-107) mmol/L Carbon Dioxide 33 H (22-30) mmol/L Anion Gap 5 mmol/L BUN 39 H (7-17) mg/dL Creatinine 0.79 (0.52-1.04) mg/dL Est GFR (CKD-EPI) (>=60) Est GFR (CKD-EPI)AfAm 81 (>60 ml/min/1.73 sqM) Est GFR (CKD-EPI)NonAf 70 (>60 ml/min/1.73 sqM) BUN/Creatinine Ratio (12.00-20.00) Ratio Glucose 125 H (74-99) mg/dL POC Glucose (mg/dL) 122 H (70-110) mg/dL POC Glu Sucker Machine Operator ID Pankajcourtney Coopers Plasma Lactic Acid Bryn (0.7-2.0) mmol/L Calcium 8.2 L (8.4-10.2) mg/dL Total Bilirubin 0.5 (0.2-1.3) mg/dL AST 25 (14-36) U/L ALT 30 (4-34) U/L Alkaline Phosphatase 193 H (38-126) U/L Troponin I (0.000-0.034) ng/mL NT-Pro-B Natriuret Pep pg/mL Total Protein 5.2 L (6.3-8.2) g/dL Albumin 2.4 L (3.5-5.0) g/dL Globulin (1.6-3.3) g/dL Albumin/Globulin Ratio (1.60-3.17) Ratio Procalcitonin (0.02-0.50) ng/mL Urine Color Urine Appearance (Clear) Urine pH (5.0-8.0) Ur Specific Humphreys (1.001-1.035) Urine Protein (Negative) Urine Glucose (UA) (Negative) Urine Ketones (Negative) Urine Blood (Negative) Urine Nitrite (Negative) Urine Bilirubin (Negative) Urine Urobilinogen (<2.0) mg/dL Ur Leukocyte Esterase (Negative) Urine RBC (0-5) /hpf Urine WBC (0-5) /hpf Urine WBC Clumps (None) /hpf Ur Squamous Epith Cells (0-4) /hpf Urine Bacteria (None) /hpf Hyaline Casts (0-2) /lpf Urine Mucus (None) /hpf Urine Yeast (Budding) (None) /hpf Influenza Type A (PCR) (Not Detectd) Influenza Type B (PCR) (Not Detectd) RSV (PCR) (Not Detectd) SARS-CoV-2 (PCR) (Not Detectd) Disposition Clinical Impression: Acute exacerbation of chronic obstructive pulmonary disease, Leukocytosis, Pleural effusion, Elevated brain natriuretic peptide (BNP) level Disposition: [facility] Condition: Stable Is patient prescribed a controlled substance at d/c from ED?: No Time of Disposition: 06:54 Decision to Admit Reason: Admit from EC Decision Date: 06/23/24 Decision Time: 06:54
[2024-06-23 05:28] LABS: Influenza A Not Detected (Not Detectd); Influenza B Not Detected (Not Detectd); RSV Not Detected (Not Detectd)
--- NOTE | 2024-06-23 05:29 | XR ---
EXAMINATION TYPE: XR chest 1V portable DATE OF EXAM: 06/23/2024 COMPARISON: Chest x-ray 4 days earlier. CLINICAL INDICATION: Female, 83 years old with history of difficulty breathing; TECHNIQUE: Single frontal upright view of the chest is obtained. FINDINGS: Improved aeration right lung base. Persistent left basilar opacity. Stable cardiomegaly wi th dual lead pacemaker. Surgical change right humeral head redemonstrated. IMPRESSION: Persistent cardiomegaly with small left pleural effusion and left basilar acute infiltra te and/or atelectasis. Improved aeration right lung base noted. [facility] Matthews, , 06/23/2024 5:27 AM
[2024-06-23 05:38] LABS: HCT 36.6 % (34.0-46.0); HGB 11.3 gm/dL (11.4-16.0); MCH 30.4 pg (25.0-35.0); MCV 98.1 fL (80.0-100.0); Mean Platelet Volume 7.8; Platelet Count 254 k/uL (150-450); RBC 3.73 m/uL (3.80-5.40); WBC 48.4 k/uL (3.8-10.6)
[2024-06-23 05:51] LABS: ALT 92 U/L (4-34); African American GFR (CKD) 64 (>60 ml/min/1.73 sqM); Albumin 2.9 g/dL (3.5-5.0); Anion Gap 7 mmol/L; Blood Urea Nitrogen 33 mg/dL (7-17); Calcium 8.7 mg/dL (8.4-10.2); Carbon Dioxide 29 mmol/L (22-30); Chloride 94 mmol/L (98-107); Glucose 136 mg/dL (74-99); Non-African American GFR(CKD) 56 (>60 ml/min/1.73 sqM); Sodium 130 mmol/L (137-145); Total Bilirubin 1.3 mg/dL (0.2-1.3); Total Protein 5.9 g/dL (6.3-8.2)
[2024-06-23 05:59] LABS: NT-Pro-B-Type Natriuretic Pept 3680 pg/mL
[2024-06-23 06:03] LABS: AST 86 U/L (14-36); Alkaline Phosphatase 260 U/L (38-126); Partial Thromboplastin Time 22.5 sec (22.0-30.0); Potassium 5.5 mmol/L (3.5-5.1); Prothrombin Time 10.6 sec (10.0-12.5)
[2024-06-23 06:21] LABS: Band Neutrophils % 16 %; Lymphocytes # (M) 0.48 k/uL (1.0-4.8); Monocytes # (M) 0.48 k/uL (0-1.0); Neutrophils % (M) 83 %; Nucleated Red Blood Cells 0 /100 WBC (0-0); Total Cells Counted 200
[2024-06-23] MEDS ORDERED: NALOXONE 0.4 MG/ML 1 ML VIAL IV PRN (06:54)
[2024-06-23] MEDS ORDERED: PNEUMONIA PROTOCOL UTILIZED 1 EACH MISC PO PRN (07:02)
[2024-06-23] MEDS: FUROSEMIDE 10 MG/ML 4 ML VIAL IV STA (07:37)
[2024-06-23] MEDS: IPRATROPIUM-ALBUTEROL 3 ML NEB INHALATION SCH (08:07)
[2024-06-23] MEDS: FUROSEMIDE 40 MG TAB PO SCH (08:57)
[2024-06-23] MEDS ORDERED: Acetaminophen-Codeine 300-30mg TAB PO PRN (10:01)
[2024-06-23] MEDS ORDERED: LACTULOSE 20 GM/30 ML CUP PO PRN (10:01)
[2024-06-23] MEDS ORDERED: guaiFENesin-DM 600/30MG 1 EACH TAB.ER.12H PO PRN (10:01)
[2024-06-23] MEDS ORDERED: NON FORMULARY DRUG (Albuterol Inhaler 90 MCG Puff) INHALATION PRN (10:01)
[2024-06-23] MEDS ORDERED: BENZONATATE 100 MG CAP PO PRN (10:01)
[2024-06-23] MEDS: AZITHROMYCIN 500 MG in SODIUM CHLORIDE 0.9% 250 ML IVPB STA (10:07)
[2024-06-23] MEDS: LOSARTAN 50 MG TAB PO SCH (10:07)
[2024-06-23] MEDS: POTASSIUM CHLORIDE ER 10 MEQ TAB.ER.PRT PO SCH (10:08)
[2024-06-23] MEDS: SODIUM ZIRCONIUM CYCLOSILICATE 10 GM PACKET PO SCH (10:31)
--- NOTE | 2024-06-23 13:11 | P.CRDCN ---
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 We have been asked to evaluate the patient for pleural effusion and elevated BNP. Patient had a recent hospitalization and was discharged on Wednesday. During that hospitalization, patient was seen by cardiology and CHF was ruled out. Patient was treated for RSV and acute COPD exacerbation. Patient states she came back to the hospital because she was having edema in her lower extremities and she was not able to walk. She was taking Lasix at home but it did not seem to make any difference. She was told to come into the hospital for further evaluation. She is complaining of cough and congestion but is not able to bring up the phlegm. She states her stomach hurts and distended since her hospitalization earlier in the week. Blood pressure 106/63, heart rate 85, pulse ox 95% on 6 L nasal cannula. Patient has been started on IV antibiotics, IV Lasix 40 mg x 1. -EKG: Sinus rhythm with no acute ST changes. -Chest x-ray: Chronic changes. No heart failure. Persistent left basilar opacity. -Laboratory studies: WBC 48, hemoglobin 1.3, sodium 130, potassium 5.5, BUN 33 creatinine 0.95. AST 86, ALT 92, alkaline phosphatase 260. Troponin negative x 1. proBNP 3680. Cepheid viral panel not detected. -Home cardiac medications: Lasix 40 mg daily, losartan 100 mg daily, Procardia XL 90 mg daily, potassium chloride 10 mill equivalents daily, also on levothyroxine. Patient is also on prednisone taper. -Echocardiogram performed 06/11/2024: EF 45 to 50%, mild mitral, aortic and tricuspid regurgitation. Review Of Systems: At the time of my exam: CONSTITUTIONAL: Denies fever or chills. HEENT: Denies blurred vision, vision changes, or eye pain. Denies hemoptysis CARDIOVASCULAR: Denies chest pain. Denies orthopnea. Denies PND. Denies palpitations. Reports lower extremity edema RESPIRATORY: Denies shortness of breath. Reports cough and congestion. GASTROINTESTINAL: Reports abdominal distention. Denies nausea or vomiting. HEMATOLOGIC: Denies bleeding disorders. GENITOURINARY: Denies any blood in urine. SKIN: Denies puritis. Denies rash. Physical examination: Gen: This is an 83-year-old female appears to be in no acute distress. Frequent coughing. VS: reviewed HEENT: Head is atraumatic, normocephalic. Pupils equal, round. Sclerae is anicteric. NECK: Supple. No JVD. LUNGS: Clear to auscultation. No wheezes or rhonchi. No intercostal retractions. HEART: Regular rate and rhythm. Systolic murmur. ABDOMEN: Soft No tenderness. EXTREMITIES: No pedal edema. No calf tenderness. NEUROLOGICAL: Patient is awake, alert and oriented x3. Assessment: Recent hospitalization for RSV, acute COPD exacerbation and acute hypoxic respiratory failure Iatrogenic heart failure from fluids provided during previous hospitalization. Hypertension Hyperlipidemia History of complete heart block with dual-chamber pacemaker implantation, 2016, [facility] History of GI bleed Former nicotine dependence Plan: Resume patient's home cardiac medications No need to repeat echocardiogram as this was done last week No further cardiac workup at this time. Cardiology will sign off this case and follow on an as-needed basis. Please reconsult for any new concerns. Patient may follow-up with her primary cardiolo gist in one to 2 weeks. Thank you kindly for this consultation. Nurse practitioner note has been reviewed, I agree with documented findings and plan of care. Patient was seen and examined. 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 History of Any Multi-Drug Resistant Organisms: None Reported Past Surgical History: Appendectomy, Hernia Repair, Hysterectomy, Joint Replacement, Orthopedic Surgery, Pacemaker, Tonsillectomy Additional Past Surgical History / Comment(s): LAPROSCOPIC LYSIS OF ADHESIONS WITH COLECTOMY, TTT, pacemaker, skin cancer removal L cheek/skin graft, inguinal hernia repairs x3, BECCA total knee bilateral knee arthroscopies, partial thyroidectomy, pain clinic procedures (cervical), bilateral lasik eye surgery for vision correction. right shoulder replacement, bowel resection on 05/13/[address] Hutton rt hip replaced, Past Anesthesia/Blood Transfusion Reactions: No Reported Reaction Type of Cardiac Device: Permanent Pacemaker Device Placement Date:: 2015 Past Psychological History: No Psychological Hx Reported Smoking Status: Former smoker Past Alcohol Use History: Occasional Past Drug Use History: None Reported - Past Family History Son(s) Family Medical History: Cancer Additional Family Medical History / Comment(s): TESTICULAR CA IN SONS X2 Daughter(s) Family Medical History: Cancer Additional Family Medical History / Comment(s): OVARIAN CANCER Mother Family Medical History: Cancer Additional Family Medical History / Comment(s): STOMACH CANCER Father Family Medical History: No Reported History Additional Family Medical History / Comment(s): Father was healthy Medications and Allergies Home Medications Medication Instructions Recorded Confirmed Type Albuterol Inhaler [Ventolin Hfa 2 puff INHALATION RT-Q4H PRN 05/09/18 06/23/24 History Inhaler] Gabapentin 300 mg PO QID PRN 10/09/22 06/23/24 History Fluticasone/Umeclidin/Vilanter 1 puff INHALATION RT-DAILY 06/10/24 06/23/24 History [Trelegy Ellipta 200-62.5-25] Gabapentin [Neurontin] 100 mg PO DAILY PRN 06/10/24 06/23/24 History Levothyroxine Sodium [Synthroid] 125 mcg PO DAILY 06/10/24 06/23/24 History Losartan Potassium 100 mg PO DAILY 06/10/24 06/23/24 History NIFEdipine XL [Procardia XL] 90 mg PO DAILY 06/10/24 06/23/24 History Benzonatate [Tessalon Perles] 200 mg PO TID PRN 7 Days #21 cap 06/15/24 06/23/24 Rx Docusate [Colace] 100 mg PO BID #60 cap 06/15/24 06/23/24 Rx Lactulose [Cephulac] 30 gm PO BID PRN 7 Days #300 ml 06/15/24 06/23/24 Rx Pantoprazole [Protonix] 40 mg PO AC-BID #60 tab 06/15/24 06/23/24 Rx Acetaminophen Tab [Tylenol] 325 mg PO Q6HR PRN tab 06/20/24 06/23/24 Rx methocarbamoL [Robaxin] 500 mg PO QID PRN #30 tab 06/20/24 06/23/24 Rx Acetaminophen-Codeine 300-30mg 1 tab PO Q6HR PRN 06/23/24 06/23/24 History [Tylenol w/codeine #3] Furosemide [Lasix] 40 mg PO DAILY 06/23/24 06/23/24 History Lidocaine 4% Cream [Lmx 4] 1 applic TOPICAL DAILY 06/23/24 06/23/24 History Potassium Chloride [Klor-Con 10 ER] 10 meq PO DAILY 06/23/24 06/23/24 History guaiFENesin-DM 600/30MG [Mucinex 1 tab PO Q12HR PRN 06/23/24 06/23/24 History Dm] predniSONE See Taper PO DIRECTED 06/23/24 06/23/24 History Allergies Allergy/AdvReac Type Severity Reaction Status Date / Time hydrocodone AdvReac Nausea & Verified 06/23/24 07:33 Vomiting hydrocodone bitartrate AdvReac Nausea & Verified 06/23/24 07:33 [From Vicodin] Vomiting hydromorphone [From Dilaudid] AdvReac Vomiting Verified 06/23/24 07:33 Iodinated Contrast Media AdvReac Nausea & Verified 06/23/24 07:33 [Iodinated Contrast- Oral Vomiting and IV Dye] grass,mold,dust,cats,trees Allergy Unknown Uncoded 06/23/24 04:37 Physical Exam Vitals: Vital Signs Temp Pulse Resp BP Pulse Ox 06/23/24 08:19 86 06/23/24 08:08 84 06/23/24 07:30 98.8 F 86 18 106/58 90 L 06/23/24 06:37 90 20 101/57 93 L 06/23/24 04:35 22 06/23/24 04:31 98.2 F 95 22 111/62 93 L Intake and Output 06/22/24 06/23/24 06/23/24 22:59 06:59 14:59 Other: Weight 86.183 kg Results 06/23/24 04:43 06/23/24 04:43 Cardiac Enzymes 06/23/24 06/23/24 Range/Units 04:43 04:43 AST 86 H (14-36) U/L Troponin I 0.027 (0.000-0.034) ng/mL Coagulation 06/23/24 Range/Units 04:43 PT 10.6 (10.0-12.5) sec APTT 22.5 (22.0-30.0) sec CBC 06/23/24 Range/Units 04:43 WBC 48.4 H (3.8-10.6) k/uL RBC 3.73 L (3.80-5.40) m/uL Hgb 11.3 L (11.4-16.0) gm/dL Hct 36.6 (34.0-46.0) % Plt Count 254 (150-450) k/uL Comprehensive Metabolic Panel 06/23/24 Range/Units 04:43 Sodium 130 L (137-145) mmol/L Potassium 5.5 H (3.5-5.1) mmol/L Chloride 94 L (98-107) mmol/L Carbon Dioxide 29 (22-30) mmol/L BUN 33 H (7-17) mg/dL Creatinine 0.95 (0.52-1.04) mg/dL Glucose 136 H (74-99) mg/dL Calcium 8.7 (8.4-10.2) mg/dL AST 86 H (14-36) U/L ALT 92 H (4-34) U/L Alkaline Phosphatase 260 H (38-126) U/L Total Protein 5.9 L (6.3-8.2) g/dL Albumin 2.9 L (3.5-5.0) g/dL Current Medications Generic Name Dose Route Start Last Admin Trade Name Freq PRN Reason Stop Dose Admin Acetaminophen 650 mg 06/23/24 06:54 Acetaminophen Tab 325 Mg Tab PO Q6HR PRN Mild Pain or Fever > 100.5 Albuterol/Ipratropium 3 ml 06/23/24 08:00 06/23/24 08:07 Ipratropium-Albuterol 3 Ml Neb INHALATION 3 ml RT-Q4H OMID Administration Azithromycin 500 mg 06/24/24 09:00 Azithromycin 500 Mg Tab PO 06/25/24 09:01 DAILY OMID Protocol Ceftriaxone Sodium 2 gm/ 50 mls @ 100 mls/hr 06/24/24 09:00 Sodium Chloride IVPB 06/27/24 09:29 Q24HR OMID Protocol Miscellaneous Information 1 each 06/23/24 07:02 Pneumonia Protocol Utilized 1 Each Misc PO ONCE PRN Per Protocol Naloxone HCl 0.2 mg 06/23/24 06:54 Naloxone 0.4 Mg/Ml 1 Ml Vial IV Q2M PRN Opioid Reversal Intake and Output 06/22/24 06/23/24 06/23/24 22:59 06:59 14:59 Other: Weight 86.183 kg 06/23/24 04:43 06/23/24 04:43
--- NOTE | 2024-06-23 13:59 | P.CNPUL ---
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 She was recently just discharged to home from here on June 20, 2024 after being recommended to go to subacute rehabilitation after a lengthy stay in the hospital from June 10, 2024 through June 20, 2024. We were following the patient as she had developed RSV, COPD exacerbation and hospital-acquired pneumonia. She was treated with Zosyn. She did go home with home oxygen. Instructed to continue her home Trelegy and albuterol. She presented back to the emergency room early this morning with complaints of increasing shortness of breath and increasing lower extremity edema. X-ray revealed persistent cardiomegaly with small left pleural effusion and left basilar acute infiltrate and/or atelectasis. Improved aeration of the right lung base. EKG reveals normal sinus rhythm with no acute ST or T wave abnormalities. White count 48.4. Hemoglobin 11.3. Platelets 254. Sodium 130. Potassium 5.5. Bicarb 29. BUN 33. Creatinine 0.95. Glucose 136. AST 86. ALT 92. Alk phos 260. Troponin 0.027. Pro BNP 3680. Viral screen is negative. She is seen today in consultation in the emergency department. She is currently resting on a stretcher. Awake and alert in no acute distress. She is maintaining O2 saturations in the 90s on 4 L/min per nasal cannula. She does have 1+ peripheral edema. Review of Systems REVIEW OF SYSTEMS: CONSTITUTIONAL: Denies any recent significant weight loss or weight gain. EYES: Denies change in vision. EARS, NOSE, MOUTH, THROAT: Denies headaches, denies sore throat. CARDIOVASCULAR: Denies chest pain, palpitations or syncopal episodes. RESPIRATORY: Positive for shortness of breath, cough, congestion no hemoptysis. GASTROINTESTINAL: Denies change in appetite, denies abdominal pain GENITOURINARY: Denies hematuria, denies infections. MUSKULOSKELETAL: Positive for lower extremity swelling. INTEGUMENTARY: Denies rash, denies eczema. NEUROLOGICAL: Denies recent memory loss, no recent seizure activity. PSYCHIATRIC: Denies anxiety, denies depression. HEMATOLOGIC/LYMPHATIC: Denies anemia, denies enlarged lymph nodes. 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 History of Any Multi-Drug Resistant Organisms: None Reported Past Surgical History: Appendectomy, Hernia Repair, Hysterectomy, Joint Replacement, Orthopedic Surgery, Pacemaker, Tonsillectomy Additional Past Surgical History / Comment(s): LAPROSCOPIC LYSIS OF ADHESIONS WITH COLECTOMY, TTT, pacemaker, skin cancer removal L cheek/skin graft, inguinal hernia repairs x3, BECCA total knee bilateral knee arthroscopies, partial thyroidectomy, pain clinic procedures (cervical), bilateral lasik eye surgery for vision correction. right shoulder replacement, bowel resection on 05/13/[address] Hutton rt hip replaced, Past Anesthesia/Blood Transfusion Reactions: No Reported Reaction Type of Cardiac Device: Permanent Pacemaker Device Placement Date:: 2015 Past Psychological History: No Psychological Hx Reported Smoking Status: Former smoker Past Alcohol Use History: Occasional Past Drug Use History: None Reported - Past Family History Son(s) Family Medical History: Cancer Additional Family Medical History / Comment(s): TESTICULAR CA IN SONS X2 Daughter(s) Family Medical History: Cancer Additional Family Medical History / Comment(s): OVARIAN CANCER Mother Family Medical History: Cancer Additional Family Medical History / Comment(s): STOMACH CANCER Father Family Medical History: No Reported History Additional Family Medical History / Comment(s): Father was healthy Medications and Allergies Home Medications Medication Instructions Recorded Confirmed Type Albuterol Inhaler [Ventolin Hfa 2 puff INHALATION RT-Q4H PRN 05/09/18 06/23/24 History Inhaler] Gabapentin 300 mg PO QID PRN 10/09/22 06/23/24 History Fluticasone/Umeclidin/Vilanter 1 puff INHALATION RT-DAILY 06/10/24 06/23/24 History [Trelegy Ellipta 200-62.5-25] Gabapentin [Neurontin] 100 mg PO DAILY PRN 06/10/24 06/23/24 History Levothyroxine Sodium [Synthroid] 125 mcg PO DAILY 06/10/24 06/23/24 History Losartan Potassium 100 mg PO DAILY 06/10/24 06/23/24 History NIFEdipine XL [Procardia XL] 90 mg PO DAILY 06/10/24 06/23/24 History Benzonatate [Tessalon Perles] 200 mg PO TID PRN 7 Days #21 cap 06/15/24 06/23/24 Rx Docusate [Colace] 100 mg PO BID #60 cap 06/15/24 06/23/24 Rx Lactulose [Cephulac] 30 gm PO BID PRN 7 Days #300 ml 06/15/24 06/23/24 Rx Pantoprazole [Protonix] 40 mg PO AC-BID #60 tab 06/15/24 06/23/24 Rx Acetaminophen Tab [Tylenol] 325 mg PO Q6HR PRN tab 06/20/24 06/23/24 Rx methocarbamoL [Robaxin] 500 mg PO QID PRN #30 tab 06/20/24 06/23/24 Rx Acetaminophen-Codeine 300-30mg 1 tab PO Q6HR PRN 06/23/24 06/23/24 History [Tylenol w/codeine #3] Furosemide [Lasix] 40 mg PO DAILY 06/23/24 06/23/24 History Lidocaine 4% Cream [Lmx 4] 1 applic TOPICAL DAILY 06/23/24 06/23/24 History Potassium Chloride [Klor-Con 10 ER] 10 meq PO DAILY 06/23/24 06/23/24 History guaiFENesin-DM 600/30MG [Mucinex 1 tab PO Q12HR PRN 06/23/24 06/23/24 History Dm] predniSONE See Taper PO DIRECTED 06/23/24 06/23/24 History Allergies Allergy/AdvReac Type Severity Reaction Status Date / Time hydrocodone AdvReac Nausea & Verified 06/23/24 07:33 Vomiting hydrocodone bitartrate AdvReac Nausea & Verified 06/23/24 07:33 [From Vicodin] Vomiting hydromorphone [From Dilaudid] AdvReac Vomiting Verified 06/23/24 07:33 Iodinated Contrast Media AdvReac Nausea & Verified 06/23/24 07:33 [Iodinated Contrast- Oral Vomiting and IV Dye] grass,mold,dust,cats,trees Allergy Unknown Uncoded 06/23/24 04:37 Physical Exam Vitals: Vital Signs Temp Pulse Resp BP Pulse Ox 06/23/24 12:00 84 18 94 L 06/23/24 11:21 84 06/23/24 11:05 84 06/23/24 10:47 85 18 106/63 95 06/23/24 10:04 87 18 120/61 98 06/23/24 08:19 86 06/23/24 08:08 84 06/23/24 07:30 98.8 F 86 18 106/58 90 L 06/23/24 06:37 90 20 101/57 93 L 06/23/24 04:35 22 06/23/24 04:31 98.2 F 95 22 111/62 93 L Intake and Output 06/22/24 06/23/24 06/23/24 22:59 06:59 14:59 Other: Weight 86.183 kg GENERAL EXAM: Alert, weak, 83-year-old female sitting up on a stretcher, on 4 L nasal cannula, fairly comfortable in no apparent distress. HEAD: Normocephalic. EYES: Normal reaction of pupils, equal size. NOSE: Clear with pink turbinates. THROAT: No erythema or exudates. NECK: No masses, no JVD. CHEST: No chest wall deformity. LUNGS: Equal air entry with crackles in the left lung base. CVS: S1 and S2 normal with no audible murmur, regular rhythm. ABDOMEN: No hepatosplenomegaly, normal bowel sounds, no guarding or rigidity. SPINE: No scoliosis or deformity SKIN: No rashes CENTRAL NERVOUS SYSTEM: No focal deficits, tone is normal in all 4 extremities. EXTREMITIES: There is 1+ peripheral edema. No clubbing, no cyanosis. Peripheral pulses are intact. Results - Laboratory Findings CBC and BMP: 06/23/24 04:43 06/23/24 04:43 PT/INR, D-dimer PT 10.6 sec (10.0-12.5) 06/23/24 04:43 INR 1.0 (<1.2) 06/23/24 04:43 Abnormal lab findings: Abnormal Labs 06/23/24 06/23/24 04:43 04:43 WBC 48.4 H RBC 3.73 L Hgb 11.3 L Neutrophils # (Manual) 47.90 H Lymphocytes # (Manual) 0.48 L Sodium 130 L Potassium 5.5 H Chloride 94 L BUN 33 H Glucose 136 H AST 86 H ALT 92 H Alkaline Phosphatase 260 H Total Protein 5.9 L Albumin 2.9 L - Diagnostic Findings Chest x-ray: image reviewed Assessment and Plan Assessment: Acute on chronic hypoxemic respiratory failure secondary to an acute exacerbation of systolic congestive heart failure with mildly impaired left ventricular systolic function at 45 to 50% Leukocytosis, suspect leukemoid reaction Hyponatremia Hyperkalemia Transaminitis Recent hospitalization from June 10 to June 20, 2024 for RSV infection, COPD exacerbation, right lower lobe pneumonia Acute on chronic pain secondary to degenerative arthritis requiring pain clinic intervention History of complicated diverticulitis requiring colectomy, colostomy and subsequent reversal Complete heart block requiring permanent pacemaker implantation Multiple orthopedic surgeries due to degenerative arthritis History of skin cancer, removed History of migraines Hypothyroidism status post partial thyroidectomy Poor overall functional performance based on the above-mentioned multiple com orbidities Plan: The patient was seen and evaluated Imaging, labs and medications reviewed Check a procalcitonin Continue Rocephin and azithromycin for now Continue DuoNeb inhalations, Symbicort Continue diuretics Add Tessalon Perles for her cough Heparin for DVT prophylaxis Protonix for GI prophylaxis Lokelma for her hyperkalemia May need subacute rehabilitation at discharge We will continue to follow and make further recommendations based on her clinical status I have personally seen and examined the patient, performed the documentation and the assessment and plan as written. Number of minutes spent on the visit: 20 Dictation was produced using Vessel dictation software. Please excuse any grammatical, word or spelling errors.
--- NOTE | 2024-06-23 14:04 | XR ---
EXAMINATION TYPE: XR abdomen 1V DATE OF EXAM: 06/23/2024 COMPARISON: CT abdomen and pelvis 08/25/2021, abdominal radiograph 12/14/2017 HISTORY: Abdominal distention TECHNIQUE: Single supine KUB image of the abdomen is obtained FINDINGS: Small bowel demonstrates no evidence for dilatation or air fluid levels. Gas-filled colonic distention measuring up to 8.0 cm. There is some gas identified within the rectum. No convincing evidence for pneumoperitoneum. Pelvic phleboliths. The lung bases are clear. Multilevel degenerative changes of the lumbar spine. Large osteophytes the lower lumbar spine. Right hip arthroplasty change. IMPRESSION: Distended gas filled colon suggestive of colonic ileus. Colonic obstruction is not excluded. [facility], , 06/23/2024 2:01 PM
[2024-06-23] MEDS: ACETAMINOPHEN TAB 325 MG TAB PO PRN (15:24)
[2024-06-23] MEDS: bisacodyL 10 MG SUPP RECTAL STA (17:12)
[2024-06-23] MEDS: PANTOPRAZOLE 40 MG TABLET PO SCH (17:12)
--- NOTE | 2024-06-23 18:56 | P.HPIM ---
History of Present Illness H&P Date: 06/23/24 This is an 83 year old female with medical history of asthma, COPD, permanent pacemaker, hypertension, hyperlipidemia, GI bleed, recent admission for RSV. Patient was discharged home on Wednesday from this hospital she was treated during that stay for acute RSV, COPD exacerbation and pneumonia. She had been recommended for subacute rehab although patient and family had opted for return home on discharge. Patient was discharged on 3L of oxygen which has has been wearing, since arrival home she has been increasingly short of breath, having continued cough and noted to have significant lower extremity edema. Because of the edema patient was unable to ambulate. She has been taking oral lasix at home without improvement in her symptoms. Patient was found to be hypoxic with saturations in the 80s and brought to the hospital for further evaluation. Patient noted to have significant abdominal distention and states she has not had a good sized bowel movement since Wednesday. Now patient returns with chest xray revealing cardiomegaly with small left pleural effusion and left basilar acute infiltrate and or atelectasis. proBNP was elevated at 3680. Echocardiogram completed on June 13 during prior admission reveals an EF of 45- 50%.Patient had white blood cell count of 48. Sodium of 130, potassium 5.5, elevation of LFTs, procalcitonin level of 16.40. Viral panel is negative for influenza, RSV and covid. Patient was started empirically on IV ceftriaxone and IV solumedrol. Cultures were taken. Pulmonology and cardiology consulted. REVIEW OF SYSTEMS: CONSTITUTIONAL: No fever, Reports fatigue HEENT: No recent visual problems or hearing problems. Denied any sore throat. CARDIOVASCULAR: No chest pain, orthopnea, PND, no palpitations, no syncope. PULMONARY: Reports shortness of breath and cough, no hemoptysis. GASTROINTESTINAL: No diarrhea, no nausea, no vomiting, no abdominal pain. NEUROLOGICAL: No headaches, no weakness, no numbness. HEMATOLOGICAL: Denies any bleeding or petechiae. GENITOURINARY: Denies any burning micturition, frequency, or urgency. MUSCULOSKELETAL/RHEUMATOLOGICAL: Denies any joint pain, swelling, or any muscle pain. ENDOCRINE: Denies any polyuria or polydipsia. The rest of the 14-point review of systems is negative. PHYSICAL EXAMINATION: GENERAL: The patient is alert and oriented x3, not in any acute distress. Well developed, well nourished. on 4L of oxygen. HEENT: Pupils are round and equally reacting to light. EOMI. No scleral icterus. No conjunctival pallor. Normocephalic, atraumatic. No pharyngeal erythema. No thyromegaly. CARDIOVASCULAR: S1 and S2 present. No murmurs, rubs, or gallops. PULMONARY: Chest is clear to auscultation, no wheezing or crackles. ABDOMEN: Soft, nontender, distended with tympanic sounds, normoactive bowel sounds. No palpable organomegaly. MUSCULOSKELETAL: No joint swelling or deformity. EXTREMITIES: No cyanosis, clubbing, or pedal edema. Mild peripheral edema NEUROLOGICAL: Gross neurological examination did not reveal any focal deficits. Generalized weakness SKIN: No rashes. Assessment and Plan Acute on chronic hypoxemic respiratory failure secondary to acute exacerbation of systolic CHF Leukocytosis possibly from recent steroid injection to shoulder Recent RSV infection requiring home oxygen on discharge Volume overload likely from fluids received during prior hospital stay status post IV lasix x 1 Transaminitis likely from vascular congestion Hypervolemic hyponatremia Hyperkalemia Abdominal distention with concern for ileus vs. SBO Urinary retention requiring indwelling medina catheter Hypertension Hyperlipidemia Complete heart block and permanent pacemaker Asthma/COPD Hx of diverticulitis with colostomy and reversal Hx GI bleed GI prophylaxis DVT prophylaxis Full Code Plan Continue IV ceftriaxone and PO azithromycin General surgery consultation and patient has been made NPO Dulcolax suppository x 1 Indweling medina catheter has been placed Check urinalysis Hold losartan and potassium Lokelma x 4 doses has been ordered and repeat potassium level this afternoon and tomorrow morning IV lasix x 1 given and home dose of oral lasix 40 mg has been resumed Continue oxygen support Cardiology, pulmonology consultation Repeat BMP/CBC in the AM PT/OT consultation The impression and plan of care has been dictated by Anh Moore Nurse Practitioner as directed. Dr. Faheem MD I have performed a history and physical examination and medical decision making of this patient, discussed the same with the dictator, and agree with the dictators assessment and plan as written, documented as a scribe. Based on total visit time, I have performed more than 50% of this visit. 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 History of Any Multi-Drug Resistant Organisms: None Reported Past Surgical History: Appendectomy, Hernia Repair, Hysterectomy, Joint Replacement, Orthopedic Surgery, Pacemaker, Tonsillectomy Additional Past Surgical History / Comment(s): LAPROSCOPIC LYSIS OF ADHESIONS WITH COLECTOMY, TTT, pacemaker, skin cancer removal L cheek/skin graft, inguinal hernia repairs x3, BECCA total knee bilateral knee arthroscopies, partial thyroidectomy, pain clinic procedures (cervical), bilateral lasik eye surgery for vision correction. right shoulder replacement, bowel resection on 05/13/[address] Hutton rt hip replaced, Past Anesthesia/Blood Transfusion Reactions: No Reported Reaction Type of Cardiac Device: Permanent Pacemaker Device Placement Date:: 2015 Past Psychological History: No Psychological Hx Reported Smoking Status: Former smoker Past Alcohol Use History: Occasional Past Drug Use History: None Reported - Past Family History Son(s) Family Medical History: Cancer Additional Family Medical History / Comment(s): TESTICULAR CA IN SONS X2 Daughter(s) Family Medical History: Cancer Additional Family Medical History / Comment(s): OVARIAN CANCER Mother Family Medical History: Cancer Additional Family Medical History / Comment(s): STOMACH CANCER Father Family Medical History: No Reported History Additional Family Medical History / Comment(s): Father was healthy Medications and Allergies Home Medications Medication Instructions Recorded Confirmed Type Albuterol Inhaler [Ventolin Hfa 2 puff INHALATION RT-Q4H PRN 05/09/18 06/23/24 History Inhaler] Gabapentin 300 mg PO QID PRN 10/09/22 06/23/24 History Fluticasone/Umeclidin/Vilanter 1 puff INHALATION RT-DAILY 06/10/24 06/23/24 His tory [Trelegy Ellipta 200-62.5-25] Gabapentin [Neurontin] 100 mg PO DAILY PRN 06/10/24 06/23/24 History Levothyroxine Sodium [Synthroid] 125 mcg PO DAILY 06/10/24 06/23/24 History Losartan Potassium 100 mg PO DAILY 06/10/24 06/23/24 History NIFEdipine XL [Procardia XL] 90 mg PO DAILY 06/10/24 06/23/24 History Benzonatate [Tessalon Perles] 200 mg PO TID PRN 7 Days #21 cap 06/15/24 06/23/24 Rx Docusate [Colace] 100 mg PO BID #60 cap 06/15/24 06/23/24 Rx Lactulose [Cephulac] 30 gm PO BID PRN 7 Days #300 ml 06/15/24 06/23/24 Rx Pantoprazole [Protonix] 40 mg PO AC-BID #60 tab 06/15/24 06/23/24 Rx Acetaminophen Tab [Tylenol] 325 mg PO Q6HR PRN tab 06/20/24 06/23/24 Rx methocarbamoL [Robaxin] 500 mg PO QID PRN #30 tab 06/20/24 06/23/24 Rx Acetaminophen-Codeine 300-30mg 1 tab PO Q6HR PRN 06/23/24 06/23/24 History [Tylenol w/codeine #3] Furosemide [Lasix] 40 mg PO DAILY 06/23/24 06/23/24 History Lidocaine 4% Cream [Lmx 4] 1 applic TOPICAL DAILY 06/23/24 06/23/24 History Potassium Chloride [Klor-Con 10 ER] 10 meq PO DAILY 06/23/24 06/23/24 History guaiFENesin-DM 600/30MG [Mucinex 1 tab PO Q12HR PRN 06/23/24 06/23/24 History Dm] predniSONE See Taper PO DIRECTED 06/23/24 06/23/24 History Allergies Allergy/AdvReac Type Severity Reaction Status Date / Time hydrocodone AdvReac Nausea & Verified 06/23/24 07:33 Vomiting hydrocodone bitartrate AdvReac Nausea & Verified 06/23/24 07:33 [From Vicodin] Vomiting hydromorphone [From Dilaudid] AdvReac Vomiting Verified 06/23/24 07:33 Iodinated Contrast Media AdvReac Nausea & Verified 06/23/24 07:33 [Iodinated Contrast- Oral Vomiting and IV Dye] grass,mold,dust,cats,trees Allergy Unknown Uncoded 06/23/24 04:37 Physical Exam Vitals: Vital Signs Temp Pulse Pulse Resp BP BP Pulse Ox 06/23/24 15:38 84 06/23/24 15:26 85 98 06/23/24 15:22 98.6 F 87 18 139/68 95 06/23/24 14:35 98.0 F 71 18 120/76 98 06/23/24 14:05 98.9 F 80 18 128/61 96 06/23/24 12:00 84 18 94 L 06/23/24 11:21 84 06/23/24 11:05 84 06/23/24 10:47 85 18 106/63 95 06/23/24 10:04 87 18 120/61 98 06/23/24 08:19 86 06/23/24 08:08 84 06/23/24 07:30 98.8 F 86 18 106/58 90 L 06/23/24 06:37 90 20 101/57 93 L 06/23/24 04:35 22 06/23/24 04:31 98.2 F 95 22 111/62 93 L Intake and Output 06/23/24 06/23/24 06/23/24 06:59 14:59 22:59 Intake Total 100 Output Total 400 1200 Balance -400 -1100 Intake: Oral 100 Output: Urine 400 1200 Uretheral (Medina) 400 Other: Weight 86.183 kg 86.183 kg Results CBC & Chem 7: 06/23/24 04:43 06/23/24 17:45 Labs: Abnormal Lab Results - Last 24 Hours (Table) 06/23/24 06/23/24 06/23/24 Range/Units 04:43 04:43 04:43 WBC 48.4 H (3.8-10.6) k/uL RBC 3.73 L (3.80-5.40) m/uL Hgb 11.3 L (11.4-16.0) gm/dL Neutrophils # (Manual) 47.90 H (1.3-7.7) k/uL Lymphocytes # (Manual) 0.48 L (1.0-4.8) k/uL Sodium 130 L (137-145) mmol/L Potassium 5.5 H (3.5-5.1) mmol/L Chloride 94 L (98-107) mmol/L BUN 33 H (7-17) mg/dL Glucose 136 H (74-99) mg/dL AST 86 H (14-36) U/L ALT 92 H (4-34) U/L Alkaline Phosphatase 260 H (38-126) U/L Total Protein 5.9 L (6.3-8.2) g/dL Albumin 2.9 L (3.5-5.0) g/dL Procalcitonin 16.40 H (0.02-0.50) ng/mL Thrombosis Risk Factor Assmnt - Choose All That Apply Other Risk Factors: Yes Each Risk Factor Represents 3 Points: Age 75 years or older Thrombosis Risk Factor Assessment Total Risk Factor Score: 3 Thrombosis Risk Factor Assessment Level: Moderate Risk Assessment and Plan Time with Patient: Greater than 30
[2024-06-23] MEDS: SYMBICORT 160-4.5 MCG INHALER INHALATION SCH (20:17)
[2024-06-23] MEDS: DOCUSATE 100 MG CAP PO SCH (21:40)
[2024-06-23] MEDS: NYSTATIN 100,000 UNIT/ML SUSP 500,000 UNIT/5 ML CUP PO SCH (21:40)
[2024-06-23] MEDS: LIDOCAINE 4% PATCH TOPICAL SCH (21:40)
[2024-06-23] MEDS: HEPARIN SODIUM,PORCINE 5,000 UNIT/ML 1 ML VIAL SQ SCH (21:40)
[2024-06-23 22:45] LABS: Appearance,Urine Cloudy (Clear); Bacteria,Urine Rare /hpf; Bilirubin,Urine Negative (Negative); Blood,Urine Large (Negative); Budding Yeast,Urine Rare /hpf; Color,Urine Yellow; Glucose,Urine (UA) Negative (Negative); Hyaline Casts,Urine 1 /lpf (0-2); Ketones,Urine Negative (Negative); Leukocyte Esterase,Urine Large (Negative); Mucus,Urine Rare /hpf; Nitrite,Urine Negative (Negative); PH, Urine 5.5 (5.0-8.0); Protein,Urine Trace (Negative); RBC,Urine 61 /hpf (0-5); Specific Gravity,Urine 1.018 (1.001-1.035); Squamous Epithelial Cell,Urine <1 /hpf (0-4); Urobilinogen,Urine <2.0 mg/dL (<2.0); WBC,Urine 132 /hpf (0-5)
[2024-06-24] MEDS: MORPHINE SULFATE 2 MG/ML SYRINGE IVP PRN ×2 (00:06→06:18)
[2024-06-24] MEDS: ONDANSETRON 4 MG/2 ML VIAL IVP PRN (00:06)
[2024-06-24] MEDS: LEVOTHYROXINE 125 MCG TAB PO SCH (06:12)
[2024-06-24 06:42] LABS: Basophils % (A) 0 %; Eosinophils # (A) 0.2 k/uL (0-0.7); Eosinophils % (A) 1 %; HCT 33.8 % (34.0-46.0); HGB 10.3 gm/dL (11.4-16.0); Hypochromasia Slight; Lymphocytes # (A) 0.4 k/uL (1.0-4.8); Lymphocytes % (A) 1 %; MCH 30.3 pg (25.0-35.0); MCHC 30.5 g/dL (31.0-37.0); MCV 99.4 fL (80.0-100.0); Mean Platelet Volume 7.3; Monocytes # (A) 0.7 k/uL (0-1.0); Monocytes % (A) 2 %; Neutrophils # (A) 27.9 k/uL (1.3-7.7); Neutrophils % (A) 95 %; Platelet Count 197 k/uL (150-450); RDW 14.7 % (11.5-15.5); WBC 29.3 k/uL (3.8-10.6)
--- NOTE | 2024-06-24 07:07 | XR ---
Chest, 2 view CLINICAL INDICATION: Female, 83 years old with history of pneumonia COMPARISON: 06/10/2024 TECHNIQUE: PA and lateral views the chest are obtained. FINDINGS: There is stable mild cardiomegaly 2-lead cardiac pacemaker. There is stable acute cardiopulmonary process with pulmonary vascular congestion and probable small l eft pleural effusion. There is reverse right shoulder prosthesis. There is marked degenerative change of the left glenohume ral joint. IMPRESSION: No significant interval change in the acute cardiopulmonary process. Findings most likely related to CHF. [facility], , 06/24/2024 7:05 AM
[2024-06-24] MEDS ORDERED: NON FORMULARY DRUG (Fluticasone/Umeclidin/Vilanter [Trelegy Ellipta 200-62.5-25] 1 EACH Bl INHALATION SCH (08:00)
[2024-06-24] MEDS: IPRATROPIUM-ALBUTEROL 3 ML NEB INHALATION SCH (09:01)
[2024-06-24] MEDS: TIOTROPIUM 2.5 MCG INHALER INHALATION SCH (09:01)
[2024-06-24 11:13] LABS: ALT 63 U/L (8-44); AST 52 U/L (13-35); Albumin 2.5 g/dL (3.8-4.9); Albumin/Globulin Ratio 0.93 Ratio (1.60-3.17); Alkaline Phosphatase 226 U/L (41-126); BUN/Creat Ratio 28.25 Ratio (12.00-20.00); Blood Urea Nitrogen 22.6 mg/dL (9.0-27.0); Calcium 8.3 mg/dL (8.7-10.3); Carbon Dioxide 28.4 mmol/L (21.6-31.8); Chloride 95 mmol/L (96-109); Globulin 2.7 g/dL (1.6-3.3); Glucose 118 mg/dL (70-110); Potassium 4.1 mmol/L (3.5-5.5); Sodium 132 mmol/L (135-145); Total Bilirubin 0.4 mg/dL (0.3-1.2); Total Protein 5.2 g/dL (6.2-8.2)
[2024-06-24] MEDS: methylPREDNISolone SOD SUCCI 40 MG/ML 1 ML VIAL IV SCH (12:05)
[2024-06-24] MEDS ORDERED: HYDROmorphone 0.5 MG/0.5 ML SYRINGE IVP PRN (13:15)
--- NOTE | 2024-06-24 13:58 | P.PN ---
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 She was recently just discharged to home from here on June 20, 2024 after being recommended to go to subacute rehabilitation after a lengthy stay in the hospital from June 10, 2024 through June 20, 2024. We were following the patient as she had developed RSV, COPD exacerbation and hospital- acquired pneumonia. She was treated with Zosyn. She did go home with home oxygen. Instructed to continue her home Trelegy and albuterol. She presented back to the emergency room early this morning with complaints of increasing shortness of breath and increasing lower extremity edema. X-ray revealed persistent cardiomegaly with small left pleural effusion and left basilar acute infiltrate and/or atelectasis. Improved aeration of the right lung base. EKG reveals normal sinus rhythm with no acute ST or T wave abnormalities. White count 48.4. Hemoglobin 11.3. Platelets 254. Sodium 130. Potassium 5.5. Bicarb 29. BUN 33. Creatinine 0.95. Glucose 136. AST 86. ALT 92. Alk phos 260. Troponin 0.027. Pro BNP 3680. Viral screen is negative. She is seen today in consultation in the emergency department. She is currently resting on a stretcher. Awake and alert in no acute distress. She is maintaining O2 saturations in the 90s on 4 L/min per nasal cannula. She does have 1+ peripheral edema. The patient is seen today June 24, 2024 in follow-up on the regular medical floor. She is currently resting in bed. Awake and alert in no acute distress. Maintaining O2 saturations in the 90s on 3 L/min per nasal cannula. Blood culture positive for presumptive Staph aureus. White count 29.3. Hemoglobin 10.3. Platelets 197. Sodium 132. Potassium 4.1. Bicarb 28. BUN 23. Creatinine 0.8. Glucose 118. Urinalysis cloudy with large leukocyte esterase high WBCs and rare bacteria. She remains on ceftriaxone and azithromycin. Procalcitonin was 3.39. She remains on DuoNeb inhalations, Symbicort, Solu- Medrol. Heparin for DVT prophylaxis. Remains on oral diuretics. Follow-up chest x-ray continues to show evidence of mild congestive heart failure. A bdominal x-ray shows distended gas filled colon suggestive of colonic ileus. Colonic obstruction is not excluded. Objective - Vital Signs Vital signs: Vital Signs Temp 98.4 F 06/24/24 07:22 Pulse 84 06/24/24 12:47 Resp 18 06/24/24 07:22 BP 116/74 06/24/24 07:22 Pulse Ox 93 L 06/24/24 09:04 FiO2 Intake & Output 06/23/24 06/24/24 06/24/24 18:59 06:59 18:59 Intake Total 100 Output Total 1600 500 Balance -1500 -500 Weight 86.183 kg Intake: Oral 100 Output: Urine 1600 500 Uretheral (Miranda) 400 Other: Voiding Method Indwelling Catheter - Exam GENERAL EXAM: Alert, 83-year-old female, comfortably in bed, on 4 L nasal cannula, fairly comfortable in no apparent distress. HEAD: Normocephalic. EYES: Normal reaction of pupils, equal size. NOSE: Clear with pink turbinates. THROAT: No erythema or exudates. NECK: No masses, no JVD. CHEST: No chest wall deformity. LUNGS: Equal air entry with crackles in the left lung base. CVS: S1 and S2 normal with no audible murmur, regular rhythm. ABDOMEN: No hepatosplenomegaly, normal bowel sounds, no guarding or rigidity. SPINE: No scoliosis or deformity SKIN: No rashes CENTRAL NERVOUS SYSTEM: No focal deficits, tone is normal in all 4 extremities. EXTREMITIES: There is 1+ peripheral edema. No clubbing, no cyanosis. Peripheral pulses are intact. - Labs CBC & Chem 7: 06/24/24 06:05 06/24/24 06:05 Labs: Abnormal Lab Results - Last 24 Hours (Table) 06/23/24 06/23/24 06/24/24 Range/Units 04:43 21:45 06:05 WBC 29.3 H (3.8-10.6) k/uL RBC 3.40 L (3.80-5.40) m/uL Hgb 10.3 L (11.4-16.0) gm/dL Hct 33.8 L (34.0-46.0) % MCHC 30.5 L (31.0-37.0) g/dL Neutrophils # 27.9 H (1.3-7.7) k/uL Lymphocytes # 0.4 L (1.0-4.8) k/uL Sodium (135-145) mmol/L Chloride (96-109) mmol/L BUN/Creatinine Ratio (12.00-20.00) Ratio Glucose (70-110) mg/dL Calcium (8.7-10.3) mg/dL AST (13-35) U/L ALT (8-44) U/L Alkaline Phosphatase (41-126) U/L Total Protein (6.2-8.2) g/dL Albumin (3.8-4.9) g/dL Albumin/Globulin Ratio (1.60-3.17) Ratio Procalcitonin 16.40 H (0.02-0.50) ng/mL Urine Appearance Cloudy H (Clear) Urine Protein Trace H (Negative) Urine Blood Large H (Negative) Ur Leukocyte Esterase Large H (Negative) Urine RBC 61 H (0-5) /hpf Urine WBC 132 H (0-5) /hpf Urine WBC Clumps Few H (None) /hpf Urine Bacteria Rare H (None) /hpf Urine Mucus Rare H (None) /hpf Urine Yeast (Budding) Rare H (None) /hpf 06/24/24 Range/Units 06:05 WBC (3.8-10.6) k/uL RBC (3.80-5.40) m/uL Hgb (11.4-16.0) gm/dL Hct (34.0-46.0) % MCHC (31.0-37.0) g/dL Neutrophils # (1.3-7.7) k/uL Lymphocytes # (1.0-4.8) k/uL Sodium 132 L (135-145) mmol/L Chloride 95 L (96-109) mmol/L BUN/Creatinine Ratio 28.25 H (12.00-20.00) Ratio Glucose 118 H (70-110) mg/dL Calcium 8.3 L (8.7-10.3) mg/dL AST 52 H (13-35) U/L ALT 63 H (8-44) U/L Alkaline Phosphatase 226 H (41-126) U/L Total Protein 5.2 L (6.2-8.2) g/dL Albumin 2.5 L (3.8-4.9) g/dL Albumin/Globulin Ratio 0.93 L (1.60-3.17) Ratio Procalcitonin (0.02-0.50) ng/mL Urine Appearance (Clear) Urine Protein (Negative) Urine Blood (Negative) Ur Leukocyte Esterase (Negative) Urine RBC (0-5) /hpf Urine WBC (0-5) /hpf Urine WBC Clumps (None) /hpf Urine Bacteria (None) /hpf Urine Mucus (None) /hpf Urine Yeast (Budding) (None) /hpf Microbiology - Last 24 Hours (Table) 06/23/24 07:15 Blood Culture Gram Stain - Preliminary Blood Blood Culture - Preliminary Presumptive Staph aureus Molecular ID Assessment and Plan Assessment: Acute on chronic hypoxemic respiratory failure secondary to an acute exacerbation of systolic congestive heart failure with mildly impaired left ventricular systolic function at 45 to 50% Leukocytosis secondary to bacteremia with presumptive Staph aureus Abdominal pain secondary to suspected colonic ileus/obstruction Hyponatremia, improving Hyperkalemia, improved Transaminitis, improving Recent hospitalization from June 10 to June 20, 2024 for RSV infection, COPD exacerbation, right lower lobe pneumonia Acute on chronic pain secondary to degenerative arthritis requiring pain clinic intervention History of complicated diverticulitis requiring colectomy, colostomy and subsequent reversal Complete heart block requiring permanent pacemaker implantation Multiple orthopedic surgeries due to degenerative arthritis History of skin cancer, removed History of migraines Hypothyroidism status post partial thyroidectomy Poor overall functional performance based on the above-mentioned multiple comorbidities Plan: The patient was seen and evaluated Labs and medications reviewed Chest and abdominal x-rays reviewed Blood culture with presumptive Staph aureus Procalcitonin 6.4 Continue Rocephin and azithromycin Continue DuoNeb inhalations, Symbicort Continue diuretics Heparin for DVT prophylaxis Protonix for GI prophylaxis May need subacute rehabilitation at discharge This patient was seen independently by the pulmonary nurse practitioner addressing pulmonary issues I have personally seen and examined the patient, performed the documentation and the assessment and plan as written. Number of minutes spent on the visit: 25 Dictation was produced using [employer] software. Please excuse any grammatical, word or spelling errors.
[2024-06-24] MEDS ORDERED: IOPAMIDOL CONTRAST (ORAL USE) VIAL PO PRN (14:01)
--- NOTE | 2024-06-24 14:11 | P.GSCN ---
History of Present Illness Consult date: 06/24/24 History of present illness: CHIEF COMPLAINT: Abdominal pain HISTORY OF PRESENT ILLNESS: The patient is a 83-year-old female with pre- existing history of chronic constipation. Family is at bedside and gives additional history. Patient was recently hospitalized over 2 weeks ago for pneumonia from 06/10/2024 to 06/20/2024. She was barely discharge for 4 days and return due to abdominal pain abdominal distention. Patient reports that she continues to have abdominal distention. She is only had 2 good days of bowel movements however has been constipated the last several days. She reports increased abdominal gas bloat. Patient reports she was about to see her surgeon in the office but came in due to abdominal pain. No blood in stools noted. Patient and family is concerned for narcotics including morphine and Dilaudid due to her current respiratory status and risk for worsening ileus. PAST MEDICAL HISTORY: See list and reviewed PAST SURGICAL HISTORY: See list and reviewed MEDICATIONS: See list and reviewed ALLERGIES: See list and reviewed SOCIAL HISTORY: See list and reviewed FAMILY HISTORY: See list and reviewed REVIEW OF ORGAN SYSTEMS: CONSTITUTIONAL: No fevers or chills. No recent weight loss. EYES: Denies any trouble with vision. No glasses. HEENT: No difficulties with hearing. No nosebleeds. No difficulty swallowing. RESPIRATORY: Recent pneumonia hospitalization less than 2 to 3 weeks ago. Has chronic obstructive pulmonary disease. CARDIOVASCULAR: Has hypertensive heart disease with ischemic cardiomyopathy. Has congestive heart failure. GASTROINTESTINAL: Has chronic constipation. Has gastroesophageal reflux disease. GENITOURINARY: Denies any blood in urine or increased urinary frequency. NEUROLOGICAL: Has neuropathy. MUSCULOSKELETAL: Has back pain, stiffness or joint arthritis. SKIN: No current skin cancer. No rash. PSYCHIATRIC: Denies current depression or suicidal thoughts. ENDOCRINE: On chronic steroids. Has hypothyroidism. HEME/LYMPHATIC: Denies any lumps and bumps around the neck. No recent deep venou s thrombosis. ALLERGY/IMMUNOLOGY: No immunoglobulin therapy. No immune deficiencies. BREAST: Denies current breast lumps, pain or nipple discharge. PHYSICAL EXAM: VITALS: Reviewed CONSTITUTIONAL: Well developed and in no acute distress. EYES: Conjuctivae without sclera icterus. Extraocular movements grossly intact. HEAD, EARS, NOSE, THROAT: Moist buccal mucosa. Head is atraumatic, normoceph alic. Hears conversational speech. No nasal drainage. NECK: Supple. No JV distention. No thyroidomegaly. RESPIRATORY: Non-labored respirations and equal bilateral excursions. CARDIOVASCULAR: Palpable 2+ radial pulses. ABDOMEN: Distended. No diffuse peritonitis. Mild tenderness upper abdomen. LYMPH: No neck lymphadenopathy. MUSCULOSKELETAL: No clubbing cyanosis or edema SKIN: Warm and well perfused with good skin turgor. NEUROLOGIC: Cranial nerves II through XII grossly intact. No focal or lateralizing signs. PSYCH: Appropriate affect. Alert and oriented to person, place and time. Displays appropriate insight. CLINCAL LABS: Reviewed. WBC on admission over 43,000 down to 24,000. Creatinine normal. Sodium 132, hyponatremia. Rest of electrolytes within normal limits. Flu, COVID, RSV negative. IMAGING: Independently reviewed. CT of the abdomen pelvis 06/11/2024 demonstrate moderate stool burden a presence of diverticulosis. This is my independent interpretation. Abdominal x-ray reviewed demonstrates distention of the colon. No free air. This is my independent interpretation. RADIOLOGY: Report reviewed. Abdominal x-ray demonstrates ileus versus cannot exclude a large bowel obstruction RECORDS: previous old records reviewed colonoscopy from September 2022 demonstrates poor prep including presence of diverticulosis. Echocardiogram report May 2024 demonstrates left ventricular systolic dysfunction with ejection fraction 45 to 50% ASSESSMENT: 1. Abdominal pain, upper abdomen 2. Chronic constipation 3. Abnormal x-ray for ileus 4. Pneumonia 5. Leukocytosis 6. Pre-existing congestive heart failure PLAN: 1. Prior films and clinical history consistent with severe constipation. Do recommend scheduled lactulose 30 g 3 times daily to help with bowel movements 2. Will also start simethicone gas drops also help with abdominal distention 3. Do not advance diet. Continue with ice chips popsicles and warm teas as needed 4. Monitor electrolytes including magnesium, potassium, sodium for contributing ileus 5. No surgical invention at this time 6. Family is requesting nonnarcotic scheduled pain medication in the interim ADVANCE DIRECTIVE: CODE STATUS in chart Thank you for this kind consultation. Past Medical History Past Medical History: Asthma, Cancer, COPD, GI Bleed, Musculoskeletal Disorder, Osteoarthritis (OA), Thyroid Disorder Additional Past Medical History / Comment(s): COLOSTOMY, 3rd degree heart block with pacemaker, arthritis and bilateral knees, colitis/stomach ulcer in the 1970s/lower GI bleed,past migraines as a teen, vertigo, skin cancer with vandana rina. History of Any Multi-Drug Resistant Organisms: None Reported Past Surgical History: Appendectomy, Hernia Repair, Hysterectomy, Joint Replacement, Orthopedic Surgery, Pacemaker, Tonsillectomy Additional Past Surgical History / Comment(s): LAPROSCOPIC LYSIS OF ADHESIONS WITH COLECTOMY, TTT, pacemaker, skin cancer removal L cheek/skin graft, inguinal hernia repairs x3, BECCA total knee bilateral knee arthroscopies, partial thyroidectomy, pain clinic procedures (cervical), bilateral lasik eye surgery for vision correction. right shoulder replacement, bowel resection on 05/13/[address] Hutton rt hip replaced, Past Anesthesia/Blood Transfusion Reactions: No Reported Reaction Type of Cardiac Device: Permanent Pacemaker Device Placement Date:: 2015 Past Psychological History: No Psychological Hx Reported Smoking Status: Former smoker Past Alcohol Use History: Occasional Past Drug Use History: None Reported - Past Family History Son(s) Family Medical History: Cancer Additional Family Medical History / Comment(s): TESTICULAR CA IN SONS X2 Daughter(s) Family Medical History: Cancer Additional Family Medical History / Comment(s): OVARIAN CANCER Mother Family Medical History: Cancer Additional Family Medical History / Comment(s): STOMACH CANCER Father Family Medical History: No Reported History Additional Family Medical History / Comment(s): Father was healthy Medications and Allergies Home Medications Medication Instructions Recorded Confirmed Type Albuterol Inhaler [Ventolin Hfa 2 puff INHALATION RT-Q4H PRN 05/09/18 06/23/24 History Inhaler] Gabapentin 300 mg PO QID PRN 10/09/22 06/23/24 History Fluticasone/Umeclidin/Vilanter 1 puff INHALATION RT-DAILY 06/10/24 06/23/24 History [Trelegy Ellipta 200-62.5-25] Gabapentin [Neurontin] 100 mg PO DAILY PRN 06/10/24 06/23/24 History Levothyroxine Sodium [Synthroid] 125 mcg PO DAILY 06/10/24 06/23/24 History Losartan Potassium 100 mg PO DAILY 06/10/24 06/23/24 History NIFEdipine XL [Procardia XL] 90 mg PO DAILY 06/10/24 06/23/24 History Benzonatate [Tessalon Perles] 200 mg PO TID PRN 7 Days #21 cap 06/15/24 06/23/24 Rx Docusate [Colace] 100 mg PO BID #60 cap 06/15/24 06/23/24 Rx Lactulose [Cephulac] 30 gm PO BID PRN 7 Days #300 ml 06/15/24 06/23/24 Rx Pantoprazole [Protonix] 40 mg PO AC-BID #60 tab 06/15/24 06/23/24 Rx Acetaminophen Tab [Tylenol] 325 mg PO Q6HR PRN tab 06/20/24 06/23/24 Rx methocarbamoL [Robaxin] 500 mg PO QID PRN #30 tab 06/20/24 06/23/24 Rx Acetaminophen-Codeine 300-30mg 1 tab PO Q6HR PRN 06/23/24 06/23/24 History [Tylenol w/codeine #3] Furosemide [Lasix] 40 mg PO DAILY 06/23/24 06/23/24 History Lidocaine 4% Cream [Lmx 4] 1 applic TOPICAL DAILY 06/23/24 06/23/24 History Potassium Chloride [Klor-Con 10 ER] 10 meq PO DAILY 06/23/24 06/23/24 History guaiFENesin-DM 600/30MG [Mucinex 1 tab PO Q12HR PRN 06/23/24 06/23/24 History Dm] predniSONE See Taper PO DIRECTED 06/23/24 06/23/24 History Allergies Allergy/AdvReac Type Severity Reaction Status Date / Time hydrocodone AdvReac Nausea & Verified 06/23/24 07:33 Vomiting hydrocodone bitartrate AdvReac Nausea & Verified 06/23/24 07:33 [From Vicodin] Vomiting hydromorphone [From Dilaudid] AdvReac Vomiting Verified 06/23/24 07:33 Iodinated Contrast Media AdvReac Nausea & Verified 06/23/24 07:33 [Iodinated Contrast- Oral Vomiting and IV Dye] grass,mold,dust,cats,trees Allergy Unknown Uncoded 06/23/24 04:37 Surgical - Exam Vital Signs Temp Pulse Resp BP Pulse Ox 98.2 F 95 22 111/62 93 L 06/23/24 04:31 06/23/24 04:31 06/23/24 04:31 06/23/24 04:31 06/23/24 04:31 Results - Labs 06/24/24 06:05 06/24/24 06:05 Abnormal Lab Results - Last 24 Hours (Table) 06/23/24 06/23/24 06/24/24 Range/Units 04:43 21:45 06:05 WBC 29.3 H (3.8-10.6) k/uL RBC 3.40 L (3.80-5.40) m/uL Hgb 10.3 L (11.4-16.0) gm/dL Hct 33.8 L (34.0-46.0) % MCHC 30.5 L (31.0-37.0) g/dL Neutrophils # 27.9 H (1.3-7.7) k/uL Lymphocytes # 0.4 L (1.0-4.8) k/uL Sodium (135-145) mmol/L Chloride (96-109) mmol/L BUN/Creatinine Ratio (12.00-20.00) Ratio Glucose (70-110) mg/dL Calcium (8.7-10.3) mg/dL AST (13-35) U/L ALT (8-44) U/L Alkaline Phosphatase (41-126) U/L Total Protein (6.2-8.2) g/dL Albumin (3.8-4.9) g/dL Albumin/Globulin Ratio (1.60-3.17) Ratio Procalcitonin 16.40 H (0.02-0.50) ng/mL Urine Appearance Cloudy H (Clear) Urine Protein Trace H (Negative) Urine Blood Large H (Negative) Ur Leukocyte Esterase Large H (Negative) Urine RBC 61 H (0-5) /hpf Urine WBC 132 H (0-5) /hpf Urine WBC Clumps Few H (None) /hpf Urine Bacteria Rare H (None) /hpf Urine Mucus Rare H (None) /hpf Urine Yeast (Budding) Rare H (None) /hpf 06/24/24 Range/Units 06:05 WBC (3.8-10.6) k/uL RBC (3.80-5.40) m/uL Hgb (11.4-16.0) gm/dL Hct (34.0-46.0) % MCHC (31.0-37.0) g/dL Neutrophils # (1.3-7.7) k/uL Lymphocytes # (1.0-4.8) k/uL Sodium 132 L (135-145) mmol/L Chloride 95 L (96-109) mmol/L BUN/Creatinine Ratio 28.25 H (12.00-20.00) Ratio Glucose 118 H (70-110) mg/dL Calcium 8.3 L (8.7-10.3) mg/dL AST 52 H (13-35) U/L ALT 63 H (8-44) U/L Alkaline Phosphatase 226 H (41-126) U/L Total Protein 5.2 L (6.2-8.2) g/dL Albumin 2.5 L (3.8-4.9) g/dL Albumin/Globulin Ratio 0.93 L (1.60-3.17) Ratio Procalcitonin (0.02-0.50) ng/mL Urine Appearance (Clear) Urine Protein (Negative) Urine Blood (Negative) Ur Leukocyte Esterase (Negative) Urine RBC (0-5) /hpf Urine WBC (0-5) /hpf Urine WBC Clumps (None) /hpf Urine Bacteria (None) /hpf Urine Mucus (None) /hpf Urine Yeast (Budding) (None) /hpf Microbiology - Last 24 Hours (Table) 06/23/24 07:15 Blood Culture Gram Stain - Preliminary Blood Blood Culture - Preliminary Presumptive Staph aureus Molecular ID Diabetes panel 06/23/24 06/24/24 Range/Units 17:45 06:05 Sodium 132 L (135-145) mmol/L Potassium 4.6 4.1 (3.5-5.1) mmol/L Chloride 95 L (96-109) mmol/L Carbon Dioxide 28.4 (21.6-31.8) mmol/L BUN 22.6 (9.0-27.0) mg/dL Creatinine 0.8 (0.6-1.5) mg/dL Glucose 118 H (70-110) mg/dL Calcium 8.3 L (8.7-10.3) mg/dL AST 52 H (13-35) U/L ALT 63 H (8-44) U/L Alkaline Phosphatase 226 H (41-126) U/L Total Protein 5.2 L (6.2-8.2) g/dL Albumin 2.5 L (3.8-4.9) g/dL Calcium panel 06/24/24 Range/Units 06:05 Calcium 8.3 L (8.7-10.3) mg/dL Albumin 2.5 L (3.8-4.9) g/dL Pituitary panel 06/23/24 06/24/24 Range/Units 17:45 06:05 Sodium 132 L (135-145) mmol/L Potassium 4.6 4.1 (3.5-5.1) mmol/L Chloride 95 L (96-109) mmol/L Carbon Dioxide 28.4 (21.6-31.8) mmol/L BUN 22.6 (9.0-27.0) mg/dL Creatinine 0.8 (0.6-1.5) mg/dL Glucose 118 H (70-110) mg/dL Calcium 8.3 L (8.7-10.3) mg/dL Adrenal panel 06/23/24 06/24/24 Range/Units 17:45 06:05 Sodium 132 L (135-145) mmol/L Potassium 4.6 4.1 (3.5-5.1) mmol/L Chloride 95 L (96-109) mmol/L Carbon Dioxide 28.4 (21.6-31.8) mmol/L BUN 22.6 (9.0-27.0) mg/dL Creatinine 0.8 (0.6-1.5) mg/dL Glucose 118 H (70-110) mg/dL Calcium 8.3 L (8.7-10.3) mg/dL Total Bilirubin 0.4 (0.3-1.2) mg/dL AST 52 H (13-35) U/L ALT 63 H (8-44) U/L Alkaline Phosphatase 226 H (41-126) U/L Total Protein 5.2 L (6.2-8.2) g/dL Albumin 2.5 L (3.8-4.9) g/dL
[2024-06-24] MEDS: AZITHROMYCIN 500 MG TAB PO SCH (14:42)
[2024-06-24] MEDS ORDERED: PIPERACILLIN-TAZOBACTAM 3.375 GM in SODIUM CHLORIDE 0.9% 100 ML IVPB SCH (15:00)
[2024-06-24] MEDS: FUROSEMIDE 10 MG/ML 4 ML VIAL IV SCH (15:39)
[2024-06-24] MEDS: SIMETHICONE 40 MG/0.6 ML DROPS 2,000 MG/30 ML BOTTLE PO SCH (15:40)
[2024-06-24] MEDS: LACTULOSE 20 GM/30 ML CUP PO SCH (15:40)
[2024-06-24] MEDS: PANTOPRAZOLE 40 MG/10 ML VIAL IVP SCH (15:40)
--- NOTE | 2024-06-24 18:14 | CT ---
EXAMINATION TYPE: CT ChestAbdPelvis wo con DATE OF EXAM: 06/24/2024 4:59 PM COMPARISON: Previous CT chest study 07/06/2024. CLINICAL INDICATION: Female, 83 years old with history of bowel obstruction; PHH, Bowel obstruction Technique: CT ChestAbdPelvis wo con; Multiple axial images were obtained. Two-dimensional coronal and sagittal reconstructions were obtained. CT DLP: 1192.8 mGycm, Automated exposure control for dose reduction was used. Findings: CHEST: Cardiomegaly without significant pericardial effusion. Left chest wall cardiac pacemaker device with leads terminating in the right atrium and right ventricle. No pathologic mediastinal lymphadenopathy. Atelectatic axillary lymphadenopathy. Right shoulder arthroplasty noted. Imaging through the lungs demonstrates small left pleural effusion, improved from prior study. There is a pleural-based air-fluid collection in the left upper lobe (image 15 series 127). Additional air- fluid collection noted in the right middle lobe (image 30). Small right pleural effusion and right lo wer lobe scarring/atelectasis. Additional compressive atelectasis in the left lower lobe. No pneumoth orax. Multilevel thoracic spine degenerative changes with diffuse anterior osteophyte formation. Abdomen/pelvis: Liver demonstrates unremarkable noncontrast appearance. Spleen normal in size and morphology. Pancrea s acutely unremarkable. No suspicious adrenal gland nodule. Kidneys without hydronephrosis or ureter. Left-sided cysts. Outside of the splenic disease and tortuosity of the abdominal aorta. Limited evaluation of the pelvis due to streak artifact from right hip arthroplasty. A catheter within the urinary bladder lumen. No pathologic retroperitoneal lymphadenopathy. No large volume abdominal ascites or drainable fluid c ollection/abscess. Impacted stool in the sigmoid colon and colonic diverticulosis. Upstream to the im pacted region of stool there is marked dilatation of large bowel loops measuring up to [address] No definite small bowel obstruction. No convincing evidence of free air/pneumoperitoneum. Appare nt multifocal regions of free air in the anterior abdominal cavity (image 59) felt to most likely ref lect compressed small bowel anteriorly. No contrast extravasation identified. Lumbosacral spine degenerative changes. IMPRESSION: 1. Small regions of consolidative opacities with air fluid levels in the left upper and right middle lobes compatible with infectious etiology. 2. Small bilateral pleural effusions with adjacent compressive atelectasis, improving from prior asif dy. 3. Markedly dilated large bowel with focal transition point in the region of the sigmoid colon where there is impacted stool. Findings are compatible with large bowel obstruction. 4. Additional nonacute findings as above. [facility], , 06/24/2024 6:12 PM
[2024-06-24] MEDS: ACETAMINOPHEN IV (For NPO) 1,000 MG in EMPTY BAG 1 BAG IVPB PRN (18:54)
[2024-06-24 20:33] LABS: Glucose,Whole Blood 135 mg/dL (70-110)
--- NOTE | 2024-06-25 05:14 | PN ---
PROGRESS NOTE DATE OF SERVICE: 06/24/2024 HISTORY OF PRESENT ILLNESS: This 83-year-old woman, who was admitted recently with RSV pneumonia as well as COPD, was re-admitted with shortness of breath, abdominal discomfort. The patient is having incessant vomiting at this time. The possibility of ileus versus bowel obstruction versus impacted stool has been considered. The patient also had some features of sepsis also. I am going to obtain cultures, start broad-spectrum antibiotics, and obtain Infectious Disease and Cardiology consultations and move the patient to telemetry also. There is no history of any fever, rigors, or chills at this time. PAST MEDICAL HISTORY: Reviewed. REVIEW OF SYSTEMS: A 14-point review of systems is negative. CURRENT MEDICATIONS: Reviewed. PHYSICAL EXAMINATION: VITAL SIGNS: Pulse is 88, blood pressure 116/75, respirations 18. HEENT: Conjunctivae normal. CARDIOVASCULAR: S1, S2. RESPIRATIONS: Breath sounds diminished at the bases. A few scattered rhonchi. ABDOMEN: Soft, mild diffuse distention, mild diffuse tenderness. No guarding. No rigidity. Bowel sounds diminished. LEGS: No edema. No swelling. NERVOUS SYSTEM: Nonfocal. LABORATORY DATA: WBC 10.3. Rest of the labs are noted. ASSESSMENT: 1. Chronic obstructive pulmonary disease acute exacerbation with bilateral pneumonia, possibly gram-negative, possibly hospital-acquired. 2. Abdominal distention, ileus versus obstruction. 3. Possible sepsis. 4. Elevated WBC. 5. History of recent respiratory syncytial virus pneumonia. 6. History of asthma, chronic obstructive pulmonary disease. 7. History of degenerative joint disease. 8. Multiple complex medical issues. RECOMMENDATIONS AND DISCUSSION: In this 83-year-old woman who presented with multiple complex medical issues as mentioned earlier, we will optimize bronchodilator treatment. Otherwise, I would also recommend broad-spectrum IV antibiotics, cultures. Infectious Disease evaluation. Cardiology consultation. Monitor fluid-electrolyte balance closely. CT scan of the abdomen and pelvis. Surgical evaluation. Discussed with staff, the patient. Left a message for Daren [phone]. MMODL / IJN: [id number] /
[2024-06-25 06:13] LABS: Glucose,Whole Blood 128 mg/dL (70-110)
--- NOTE | 2024-06-25 07:42 | P.CONS ---
History of Present Illness - Reason for Consult Consult date: 06/24/24 Sepsis Requesting physician: Lio Jaramillo - Chief Complaint Shortness of breath and cough x days - History of Present Illness Patient is a 83-year-old female with a past medical history significant for asthma COPD GI bleed musculoskeletal disorder presenting to the hospital for evaluation of increasing shortness of breath in this patient who was recently hospitalized and treated for RSV and pneumonia and discharged home on O2 however the patient complaining of increasing shortness of breath and was noted to be hypoxic with O2 sats in 80% on 3 L current oxygen patient did have a cough moderate intensity denies any significant purulent sputum production has been complaining of pain mostly in the upper abdominal area describing it to be sharp moderate to severe intensity without radiation did have some nausea but no vomiting on presentation to the hospital patient was afebrile no fever have been recorded subsequently patient was nontachycardic hypotensive mildly hypoxic currently on 2 L nasal cannula oxygen patient did have a white count of 48.4 which is down to 29.3 with a left shift creatinine 0.95 liver enzymes mildly elevated urine has been positive influenza RSV COVID testing came back negative blood cultures came back positive with MSSA prompted this consultation patient did have a chest x-ray no significant change findings suggestive of congestive heart failure, patient be treated with Zosyn infectious he was consulted for further management of antibiotic therapy Review of Systems Positive point and negatives has been mentioned in the HPI, complete review of systems was performed and all other systems are negative Past Medical History Past Medical History: Asthma, Cancer, COPD, GI Bleed, Musculoskeletal Disorder, Osteoarthritis (OA), Thyroid Disorder Additional Past Medical History / Comment(s): COLOSTOMY, 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 History of Any Multi-Drug Resistant Organisms: None Reported Past Surgical History: Appendectomy, Hernia Repair, Hysterectomy, Joint Replacement, Orthopedic Surgery, Pacemaker, Tonsillectomy Additional Past Surgical History / Comment(s): LAPROSCOPIC LYSIS OF ADHESIONS WI TH COLECTOMY, TTT, pacemaker, skin cancer removal L cheek/skin graft, inguinal hernia repairs x3, BECCA total knee bilateral knee arthroscopies, partial thyroidectomy, pain clinic procedures (cervical), bilateral lasik eye surgery for vision correction. right shoulder replacement, bowel resection on 05/13/[address] Hutton rt hip replaced, Past Anesthesia/Blood Transfusion Reactions: No Reported Reaction Type of Cardiac Device: Permanent Pacemaker Device Placement Date:: 2015 Past Psychological History: No Psychological Hx Reported Smoking Status: Former smoker Past Alcohol Use History: Occasional Past Drug Use History: None Reported - Past Family History Son(s) Family Medical History: Cancer Additional Family Medical History / Comment(s): TESTICULAR CA IN SONS X2 Daughter(s) Family Medical History: Cancer Additional Family Medical History / Comment(s): OVARIAN CANCER Mother Family Medical History: Cancer Additional Family Medical History / Comment(s): STOMACH CANCER Father Family Medical History: No Reported History Additional Family Medical History / Comment(s): Father was healthy Medications and Allergies Home Medications Medication Instructions Recorded Confirmed Type Albuterol Inhaler [Ventolin Hfa 2 puff INHALATION RT-Q4H PRN 05/09/18 06/23/24 History Inhaler] Gabapentin 300 mg PO QID PRN 10/09/22 06/23/24 History Fluticasone/Umeclidin/Vilanter 1 puff INHALATION RT-DAILY 06/10/24 06/23/24 Hi story [Trelegy Ellipta 200-62.5-25] Gabapentin [Neurontin] 100 mg PO DAILY PRN 06/10/24 06/23/24 History Levothyroxine Sodium [Synthroid] 125 mcg PO DAILY 06/10/24 06/23/24 History Losartan Potassium 100 mg PO DAILY 06/10/24 06/23/24 History NIFEdipine XL [Procardia XL] 90 mg PO DAILY 06/10/24 06/23/24 History Benzonatate [Tessalon Perles] 200 mg PO TID PRN 7 Days #21 cap 06/15/24 06/23/24 Rx Docusate [Colace] 100 mg PO BID #60 cap 06/15/24 06/23/24 Rx Lactulose [Cephulac] 30 gm PO BID PRN 7 Days #300 ml 06/15/24 06/23/24 Rx Pantoprazole [Protonix] 40 mg PO AC-BID #60 tab 06/15/24 06/23/24 Rx Acetaminophen Tab [Tylenol] 325 mg PO Q6HR PRN tab 06/20/24 06/23/24 Rx methocarbamoL [Robaxin] 500 mg PO QID PRN #30 tab 06/20/24 06/23/24 Rx Acetaminophen-Codeine 300-30mg 1 tab PO Q6HR PRN 06/23/24 06/23/24 History [Tylenol w/codeine #3] Furosemide [Lasix] 40 mg PO DAILY 06/23/24 06/23/24 History Lidocaine 4% Cream [Lmx 4] 1 applic TOPICAL DAILY 06/23/24 06/23/24 History Potassium Chloride [Klor-Con 10 ER] 10 meq PO DAILY 06/23/24 06/23/24 History guaiFENesin-DM 600/30MG [Mucinex 1 tab PO Q12HR PRN 06/23/24 06/23/24 History Dm] predniSONE See Taper PO DIRECTED 06/23/24 06/23/24 History Allergies Allergy/AdvReac Type Severity Reaction Status Date / Time hydrocodone AdvReac Nausea & Verified 06/23/24 07:33 Vomiting hydrocodone bitartrate AdvReac Nausea & Verified 06/23/24 07:33 [From Vicodin] Vomiting hydromorphone [From Dilaudid] AdvReac Vomiting Verified 06/23/24 07:33 Iodinated Contrast Media AdvReac Nausea & Verified 06/23/24 07:33 [Iodinated Contrast- Oral Vomiting and IV Dye] grass,mold,dust,cats,trees Allergy Unknown Uncoded 06/23/24 04:37 Physical Exam Vitals: Vital Signs Temp Pulse Pulse Resp BP BP Pulse Ox 06/24/24 12:47 84 06/24/24 12:35 86 06/24/24 09:17 88 06/24/24 09:04 86 93 L 06/24/24 07:22 98.4 F 85 18 116/74 94 L 06/24/24 02:00 98.3 F 88 16 149/75 94 L 06/23/24 20:28 82 06/23/24 20:17 88 06/23/24 20:00 98.6 F 98 18 122/73 94 L 06/23/24 15:38 84 06/23/24 15:26 85 98 06/23/24 15:22 98.6 F 87 18 139/68 95 06/23/24 14:35 98.0 F 71 18 120/76 98 Intake and Output 06/23/24 06/24/24 06/24/24 22:59 06:59 14:59 Intake Total 100 Output Total 1200 500 Balance -1100 -500 Intake: Oral 100 Output: Urine 1200 500 Other: Voiding Method Indwelling Catheter GENERAL DESCRIPTION: Elderly female lying in bed, no distress. No tachypnea or accessory muscle of respiration use. HEENT: Shows Pallor , no scleral icterus. Oral mucous membrane is dry. No thrush NECK: Trachea central, no thyromegaly. LUNGS: Unlabored breathing. Coarse breath sounds HEART: S1, S2, regular rate and rhythm. No loud murmur ABDOMEN: Soft, epigastric area tenderness some distention EXTREMITIES: No edema of feet. SKIN: No rash, no masses palpable. NEUROLOGICAL: The patient is awake, alert, oriented x3, mood and affect normal. Results CBC & Chem 7: 06/25/24 08:24 06/25/24 07:42 Labs: Abnormal Lab Results - Last 24 Hours (Table) 06/23/24 06/23/24 06/24/24 Range/Units 04:43 21:45 06:05 WBC 29.3 H (3.8-10.6) k/uL RBC 3.40 L (3.80-5.40) m/uL Hgb 10.3 L (11.4-16.0) gm/dL Hct 33.8 L (34.0-46.0) % MCHC 30.5 L (31.0-37.0) g/dL Neutrophils # 27.9 H (1.3-7.7) k/uL Lymphocytes # 0.4 L (1.0-4.8) k/uL Sodium (135-145) mmol/L Chloride (96-109) mmol/L BUN/Creatinine Ratio (12.00-20.00) Ratio Glucose (70-110) mg/dL Calcium (8.7-10.3) mg/dL AST (13-35) U/L ALT (8-44) U/L Alkaline Phosphatase (41-126) U/L Total Protein (6.2-8.2) g/dL Albumin (3.8-4.9) g/dL Albumin/Globulin Ratio (1.60-3.17) Ratio Procalcitonin 16.40 H (0.02-0.50) ng/mL Urine Appearance Cloudy H (Clear) Urine Protein Trace H (Negative) Urine Blood Large H (Negative) Ur Leukocyte Esterase Large H (Negative) Urine RBC 61 H (0-5) /hpf Urine WBC 132 H (0-5) /hpf Urine WBC Clumps Few H (None) /hpf Urine Bacteria Rare H (None) /hpf Urine Mucus Rare H (None) /hpf Urine Yeast (Budding) Rare H (None) /hpf 06/24/24 Range/Units 06:05 WBC (3.8-10.6) k/uL RBC (3.80-5.40) m/uL Hgb (11.4-16.0) gm/dL Hct (34.0-46.0) % MCHC (31.0-37.0) g/dL Neutrophils # (1.3-7.7) k/uL Lymphocytes # (1.0-4.8) k/uL Sodium 132 L (135-145) mmol/L Chloride 95 L (96-109) mmol/L BUN/Creatinine Ratio 28.25 H (12.00-20.00) Ratio Glucose 118 H (70-110) mg/dL Calcium 8.3 L (8.7-10.3) mg/dL AST 52 H (13-35) U/L ALT 63 H (8-44) U/L Alkaline Phosphatase 226 H (41-126) U/L Total Protein 5.2 L (6.2-8.2) g/dL Albumin 2.5 L (3.8-4.9) g/dL Albumin/Globulin Ratio 0.93 L (1.60-3.17) Ratio Procalcitonin (0.02-0.50) ng/mL Urine Appearance (Clear) Urine Protein (Negative) Urine Blood (Negative) Ur Leukocyte Esterase (Negative) Urine RBC (0-5) /hpf Urine WBC (0-5) /hpf Urine WBC Clumps (None) /hpf Urine Bacteria (None) /hpf Urine Mucus (None) /hpf Urine Yeast (Budding) (None) /hpf Microbiology - Last 24 Hours (Table) 06/23/24 07:15 Blood Culture Gram Stain - Preliminary Blood Blood Culture - Preliminary Presumptive Staph aureus Molecular ID Assessment and Plan (1) MSSA bacteremia Current Visit: Yes Status: Acute Code(s): R78.81 - BACTEREMIA; B95.61 - METHICILLIN SUSCEP STAPH INFCT CAUSING DIS CLASSD [id number] SNOMED Code(s): 147112143 (2) Leukocytosis Current Visit: Yes Status: Acute Code(s): D72.829 - ELEVATED WHITE BLOOD CELL COUNT, UNSPECIFIED SNOMED Code(s): 862452256 Plan: 1patient with MSSA bacteremia in this patient presenting to the hospital with increasing shortness of breath and a cough concerning likely for pneumonia to be likely source for this MSSA bacteremia underlying endovascular source not entirely excluded, patient also having significant abdominal pain at a tenderness and underlying abdominal source need to be excluded as well 2-await CT of abdominal pelvis to be completed ordered by admitting team 3-blood cultures to be document clearance of bacteremia 4-discontinue Zosyn 5-start the patient on cefazolin 2 g every 8 hours and Flagyl while waiting for the workup to be completed We will follow on clinical condition and cultures to further adjust medication if needed Thank you for this consultation we will follow the patient along with you Dictation was produced using [employer] dictation software. please excuse any grammatical, word or spelling errors. Time with Patient: Greater than 30
[2024-06-25 08:29] LABS: ALT 56 U/L (4-34); AST 47 U/L (14-36); African American GFR (CKD) 85 (>60 ml/min/1.73 sqM); Albumin 2.8 g/dL (3.5-5.0); Anion Gap 7 mmol/L; Blood Urea Nitrogen 34 mg/dL (7-17); Calcium 8.2 mg/dL (8.4-10.2); Carbon Dioxide 28 mmol/L (22-30); Chloride 94 mmol/L (98-107); Glucose 120 mg/dL (74-99); Non-African American GFR(CKD) 74 (>60 ml/min/1.73 sqM); Sodium 129 mmol/L (137-145); Total Bilirubin 0.8 mg/dL (0.2-1.3); Total Protein 6.1 g/dL (6.3-8.2)
[2024-06-25 08:30] LABS: Alkaline Phosphatase 227 U/L (38-126); Potassium 5.5 mmol/L (3.5-5.1)
[2024-06-25 08:46] LABS: Basophils % (A) 0 %; Eosinophils % (A) 0 %; HCT 35.6 % (34.0-46.0); HGB 10.8 gm/dL (11.4-16.0); Lymphocytes # (A) 0.3 k/uL (1.0-4.8); Lymphocytes % (A) 1 %; MCHC 30.4 g/dL (31.0-37.0); MCV 98.8 fL (80.0-100.0); Mean Platelet Volume 7.9; Monocytes # (A) 0.3 k/uL (0-1.0); Monocytes % (A) 1 %; Neutrophils # (A) 22.9 k/uL (1.3-7.7); Neutrophils % (A) 97 %; Platelet Count 208 k/uL (150-450); RBC 3.61 m/uL (3.80-5.40); RDW 14.7 % (11.5-15.5); WBC 23.6 k/uL (3.8-10.6)
[2024-06-25] MEDS: metroNIDAZOLE 500 MG TAB PO SCH (09:59)
[2024-06-25 11:23] LABS: Glucose,Whole Blood 126 mg/dL (70-110)
--- NOTE | 2024-06-25 13:22 | P.PN ---
Subjective Progress Note Date: 06/25/24 Principal diagnosis: Hypoxemic respiratory failure. This is an 83-year-old female patient with a known history of chronic obstructive pulmonary disease, complicated diverticulitis with colostomy and subsequent reversal, skin cancer, hypothyroidism, third-degree AV block status p ost permanent pacemaker implantation, degenerative arthritis with multiple orthopedic surgeries. She was recently just discharged to home from here on June 20, 2024 after being recommended to go to subacute rehabilitation after a lengthy stay in the hospital from June 10, 2024 through June 20, 2024. We were following the patient as she had developed RSV, COPD exacerbation and hospital-acquired pneumonia. She was treated with Zosyn. She did go home with home oxygen. Instructed to continue her home Trelegy and albuterol. She presented back to the emergency room early this morning with complaints of increasing shortness of breath and increasing lower extremity edema. X-ray revealed persistent cardiomegaly with small left pleural effusion and left basilar acute infiltrate and/or atelectasis. Improved aeration of the right lung base. EKG reveals normal sinus rhythm with no acute ST or T wave abnormalities. White count 48.4. Hemoglobin 11.3. Platelets 254. Sodium 130. Potassium 5.5. Bicarb 29. BUN 33. Creatinine 0.95. Glucose 136. AST 86. ALT 92. Alk phos 260. Troponin 0.027. Pro BNP 3680. Viral screen is negative. She is seen today in consultation in the emergency department. She is currently resting on a stretcher. Awake and alert in no acute distress. She is maintaining O2 saturations in the 90s on 4 L/min per nasal cannula. She does have 1+ peripheral edema. The patient is seen today June 24, 2024 in follow-up on the regular medical floor. She is currently resting in bed. Awake and alert in no acute distress. Maintaining O2 saturations in the 90s on 3 L/min per nasal cannula. Blood culture positive for presumptive Staph aureus. White count 29.3. Hemoglobin 10.3. Platelets 197. Sodium 132. Potassium 4.1. Bicarb 28. BUN 23. Crea tinine 0.8. Glucose 118. Urinalysis cloudy with large leukocyte esterase high WBCs and rare bacteria. She remains on ceftriaxone and azithromycin. Procalcitonin was 3.39. She remains on DuoNeb inhalations, Symbicort, Solu- Medrol. Heparin for DVT prophylaxis. Remains on oral diuretics. Follow-up chest x-ray continues to show evidence of mild congestive heart failure. Abdominal x-ray shows distended gas filled colon suggestive of colonic ileus. Colonic obstruction is not excluded. Progress note dated June 25, 2024. 83-year-old female seen today in room 364. She is currently on 3 L of oxygen. She is getting saline at 20 cc an hour. Her procalcitonin level is 16.4. Infectious diseases following the patient. The patient is currently on Ancef. Cultures of the blood, showed methicillin sensitive Staph aureus. Current labs include a white count 23.6, hemoglobin 10.8, macro 35.6, and a normal platelet count. Sodium 129, potassium 5.5, chlorides 94, CO2 28, BUN 34, creatinine 0.75. Glucose 126. Albumin 2.8. Calcium 8.2. CT scan of the chest abdomen and pelvis, shows small regions of consolidative opacities with air-fluid levels in the left upper and right middle lobes consistent with infectious disease. Small bilateral effusions are noted with associated compressive atelectasis. Markedly dilated large bowel with focal transition point in the region of the sigmoid colon, where there is impacted stool. Objective - Vital Signs Vital signs: Vital Signs Temp 98.4 F 06/25/24 12:00 Pulse 74 06/25/24 12:33 Resp 16 06/25/24 12:00 BP 129/78 06/25/24 12:00 Pulse Ox 92 L 06/25/24 12:00 FiO2 Intake & Output 06/24/24 06/25/24 06/25/24 17:59 06:59 18:59 Output Total 500 Balance -500 Output: Urine 500 Other: Voiding Method Indwelling Catheter - Exam No acute distress, oriented 3. The patient is currently on 3 L of nasal cannula. No audible wheezing. No use of accessory muscles. HEENT examination is grossly unremarkable. Mucous membranes are moist. No oral lesions. Neck supple. Full range of motion. No adenopathy thyromegaly or neck vein distention. Cardiovascular examination reveals regular rhythm rate. S1-S2 normal. No S3 or S4. No discernible murmur noted. Lungs reveal mild scattered rhonchi, at the left lung base. No wheezes. No crackles. Right lung is relatively clear. Abdomen soft bowel sounds are heard. No masses or tenderness. Extremities are intact. No cyanosis or clubbing. Mild edema is present. Skin is without rash or lesion. Neurologic examination is brief but nonfocal. - Labs CBC & Chem 7: 06/25/24 08:24 06/25/24 07:42 Labs: Abnormal Lab Results - Last 24 Hours (Table) 06/24/24 06/25/24 06/25/24 Range/Units 20:32 06:12 07:42 WBC (3.8-10.6) k/uL RBC (3.80-5.40) m/uL Hgb (11.4-16.0) gm/dL MCHC (31.0-37.0) g/dL Neutrophils # (1.3-7.7) k/uL Lymphocytes # (1.0-4.8) k/uL Sodium 129 L (137-145) mmol/L Potassium 5.5 H (3.5-5.1) mmol/L Chloride 94 L (98-107) mmol/L BUN 34 H (7-17) mg/dL Glucose 120 H (74-99) mg/dL POC Glucose (mg/dL) 135 H 128 H (70-110) mg/dL Calcium 8.2 L (8.4-10.2) mg/dL AST 47 H (14-36) U/L ALT 56 H (4-34) U/L Alkaline Phosphatase 227 H (38-126) U/L Total Protein 6.1 L (6.3-8.2) g/dL Albumin 2.8 L (3.5-5.0) g/dL 06/25/24 06/25/24 Range/Units 08:24 11:21 WBC 23.6 H (3.8-10.6) k/uL RBC 3.61 L (3.80-5.40) m/uL Hgb 10.8 L (11.4-16.0) gm/dL MCHC 30.4 L (31.0-37.0) g/dL Neutrophils # 22.9 H (1.3-7.7) k/uL Lymphocytes # 0.3 L (1.0-4.8) k/uL Sodium (137-145) mmol/L Potassium (3.5-5.1) mmol/L Chloride (98-107) mmol/L BUN (7-17) mg/dL Glucose (74-99) mg/dL POC Glucose (mg/dL) 126 H (70-110) mg/dL Calcium (8.4-10.2) mg/dL AST (14-36) U/L ALT (4-34) U/L Alkaline Phosphatase (38-126) U/L Total Protein (6.3-8.2) g/dL Albumin (3.5-5.0) g/dL Microbiology - Last 24 Hours (Table) 06/23/24 07:15 Blood Culture Gram Stain - Final Blood Blood Culture - Final Staphylococcus aureus Molecular ID Assessment and Plan Assessment: Acute on chronic hypoxemic respiratory failure secondary to an acute exacerbation of systolic congestive heart failure. Leukocytosis secondary to bacteremia with presumptive Staph aureus. Abdominal pain secondary to suspected colonic ileus/obstruction. Hyponatremia, improving. Hyperkalemia, improved. Transaminitis, improving. Recent hospitalization from June 10 to June 20, 2024 for RSV infection, COPD exacerbation, right lower lobe pneumonia. Acute on chronic pain secondary to degenerative arthritis requiring pain clinic intervention. History of complicated diverticulitis requiring colectomy, colostomy and subsequent reversal. Complete heart block requiring permanent pacemaker implantation. Multiple orthopedic surgeries due to degenerative arthritis. History of skin cancer, removed. History of migraines. Hypothyroidism status post partial thyroidectomy. Poor overall functional performance based on the above-mentioned multiple comorbidities. Plan: Plan dated June 25, 2024. The patient is seen today in room 364. She is sitting in a chair next to the hospital bed. She is on 3 L of oxygen. She is getting saline at 20 cc an hour. Her procalcitonin level was elevated at 16.4. She is on Ancef as per infe ctious diseases. Blood cultures are positive for methicillin sensitive Staph aureus. CT scan of the chest shows multiple areas of abnormalities. We will continue to follow make recommendations along the way. All x-rays, labs, and medications are reviewed. We will continue to follow. She is also being followed by infectious diseases. She is on Ancef. Prognosis is guarded. No additional recommendations are made at this time. Dictation was produced using Done In :[employer] Second[employer]ation software. Please excuse any grammatical, word or spelling errors. Time with Patient: Less than 30
[2024-06-25] MEDS: ACETAMINOPHEN IV (For NPO) 500 MG in EMPTY BAG 1 BAG IVPB PRN (14:16)
--- NOTE | 2024-06-25 15:31 | P.PN ---
Subjective Progress Note Date: 06/25/24 CHIEF COMPLAINT: Abdominal pain HISTORY OF PRESENT ILLNESS: The patient is a 83-year-old female presents with abdominal distention and constipation. Last bowel movement and passage of flatus was , 06/22/2024, 3 days ago. She reports generalized abdominal discomfort. No passage of flatus today. She complains of thirst. She does not want any food to eat right now. Reports her last bowel movement was small pellet-like stool. She also has pre-existing history of prior colostomy and colostomy reversal. Last colonoscopy attempt was 2022 with moderate stool. Currently, patient is also being treated for pneumonia. REVIEW OF ORGAN SYSTEMS: No chest pain. No increase shortness of breath. No bowel movements PHYSICAL EXAM: VITALS: Reviewed CONSTITUTIONAL: Well developed and in no acute distress. EYES: Conjuctivae without sclera icterus. Extraocular movements grossly intact. HEAD, EARS, NOSE, THROAT: Moist buccal mucosa. Head is atraumatic, normocephalic. Hears conversational speech. No nasal drainage. RESPIRATORY: Non-labored respirations and equal bilateral excursions. CARDIOVASCULAR: Palpable 2+ radial pulses. ABDOMEN: Distended. No diffuse peritonitis. Mild tenderness upper abdomen. MUSCULOSKELETAL: No clubbing cyanosis or edema SKIN: Warm and well perfused with good skin turgor. NEUROLOGIC: Cranial nerves II through XII grossly intact. No focal or lateraliz ing signs. PSYCH: Appropriate affect. Alert and oriented to person, place and time. Displays appropriate insight. CLINCAL LABS: Reviewed. WBC down 48,000 admission to 23,000. IMAGING: Independently reviewed. CT of the chest abdomen pelvis from yesterday demonstrates moderate distention of cecum and transverse colon with moderate to severe sigmoid diverticulosis with stool. REPORT: CT report demonstrates large bowel obstruction. ASSESSMENT: 1. Abdominal pain, upper abdomen 2. Chronic constipation 3. Abnormal x-ray for ileus 4. Pneumonia 5. Leukocytosis 6. Pre-existing congestive heart failure 7. Large bowel obstruction with sigmoid diverticulosis PLAN: 1. I discussed benefits and risks of colonoscopy including diverting ostomy. Patient reports she had prior diverting ostomy due to sepsis and does not want any surgery at this time. 2. Alternatives including enema reviewed to relieve residual constipation of the sigmoid colon described. 3. Overall, patient opted for enema and does not want any surgery. Overall, with patient's active pneumonia she is elevated risk for complications. Objective - Vital Signs Vital signs: Vital Signs Temp 98.4 F 06/25/24 12:00 Pulse 74 06/25/24 12:33 Resp 16 06/25/24 12:00 BP 129/78 06/25/24 12:00 Pulse Ox 92 L 06/25/24 12:00 FiO2 Intake & Output 06/24/24 06/25/24 06/25/24 17:59 06:59 18:59 Output Total 500 Balance -500 Output: Urine 500 Other: Voiding Method Indwelling Catheter - Labs CBC & Chem 7: 06/25/24 08:24 06/25/24 07:42 Labs: Abnormal Lab Results - Last 24 Hours (Table) 06/24/24 06/25/24 06/25/24 Range/Units 20:32 06:12 07:42 WBC (3.8-10.6) k/uL RBC (3.80-5.40) m/uL Hgb (11.4-16.0) gm/dL MCHC (31.0-37.0) g/dL Neutrophils # (1.3-7.7) k/uL Lymphocytes # (1.0-4.8) k/uL Sodium 129 L (137-145) mmol/L Potassium 5.5 H (3.5-5.1) mmol/L Chloride 94 L (98-107) mmol/L BUN 34 H (7-17) mg/dL Glucose 120 H (74-99) mg/dL POC Glucose (mg/dL) 135 H 128 H (70-110) mg/dL Calcium 8.2 L (8.4-10.2) mg/dL AST 47 H (14-36) U/L ALT 56 H (4-34) U/L Alkaline Phosphatase 227 H (38-126) U/L Total Protein 6.1 L (6.3-8.2) g/dL Albumin 2.8 L (3.5-5.0) g/dL 06/25/24 06/25/24 Range/Units 08:24 11:21 WBC 23.6 H (3.8-10.6) k/uL RBC 3.61 L (3.80-5.40) m/uL Hgb 10.8 L (11.4-16.0) gm/dL MCHC 30.4 L (31.0-37.0) g/dL Neutrophils # 22.9 H (1.3-7.7) k/uL Lymphocytes # 0.3 L (1.0-4.8) k/uL Sodium (137-145) mmol/L Potassium (3.5-5.1) mmol/L Chloride (98-107) mmol/L BUN (7-17) mg/dL Glucose (74-99) mg/dL POC Glucose (mg/dL) 126 H (70-110) mg/dL Calcium (8.4-10.2) mg/dL AST (14-36) U/L ALT (4-34) U/L Alkaline Phosphatase (38-126) U/L Total Protein (6.3-8.2) g/dL Albumin (3.5-5.0) g/dL Microbiology - Last 24 Hours (Table) 06/23/24 07:15 Blood Culture Gram Stain - Final Blood Blood Culture - Final Staphylococcus aureus Molecular ID
--- NOTE | 2024-06-25 16:13 | P.PN ---
Subjective Progress Note Date: 06/25/24 Principal diagnosis: Reason for follow-up is pneumonia and bacteremia Patient is a 83-year-old female with a past medical history significant for asthma COPD GI bleed musculoskeletal disorder presenting to the hospital for evaluation of increasing shortness of breath patient did have possible culture with MSSA prompted this consultation, did have a CT of the chest abdominal pelvis concerning for left upper right middle lobe consolidation suggestive of pneumonia and large stool burden concerning for large bowel obstruction On today's evaluation that is 06/25/2024, Patient is afebrile patient is currently on 2 L current oxygen and breathing slightly comfortably denies any chest pain or worsening cough still complaining of abdominal discomfort and did not have a bowel movement. Patient white count is down to 23.6, creatinine 0.75 Objective - Vital Signs Vital signs: Vital Signs Temp 98.4 F 06/25/24 12:00 Pulse 76 06/25/24 16:04 Resp 16 06/25/24 12:00 BP 129/78 06/25/24 12:00 Pulse Ox 92 L 06/25/24 12:00 FiO2 Intake & Output 06/24/24 06/25/24 06/25/24 17:59 06:59 18:59 Output Total 500 Balance -500 Output: Urine 500 Other: Voiding Method Indwelling Catheter - Exam GENERAL DESCRIPTION: An elderly female up in the chair in no distress RESPIRATORY SYSTEM: Unlabored breathing , decreased breath sounds at bases HEART: S1 S2 regular rate and rhythm , ABDOMEN: Soft , mild distention and tenderness EXTREMITIES: No edema feet - Labs CBC & Chem 7: 06/25/24 08:24 06/25/24 07:42 Labs: Abnormal Lab Results - Last 24 Hours (Table) 06/24/24 06/25/24 06/25/24 Range/Units 20:32 06:12 07:42 WBC (3.8-10.6) k/uL RBC (3.80-5.40) m/uL Hgb (11.4-16.0) gm/dL MCHC (31.0-37.0) g/dL Neutrophils # (1.3-7.7) k/uL Lymphocytes # (1.0-4.8) k/uL Sodium 129 L (137-145) mmol/L Potassium 5.5 H (3.5-5.1) mmol/L Chloride 94 L (98-107) mmol/L BUN 34 H (7-17) mg/dL Glucose 120 H (74-99) mg/dL POC Glucose (mg/dL) 135 H 128 H (70-110) mg/dL Calcium 8.2 L (8.4-10.2) mg/dL AST 47 H (14-36) U/L ALT 56 H (4-34) U/L Alkaline Phosphatase 227 H (38-126) U/L Total Protein 6.1 L (6.3-8.2) g/dL Albumin 2.8 L (3.5-5.0) g/dL 06/25/24 06/25/24 Range/Units 08:24 11:21 WBC 23.6 H (3.8-10.6) k/uL RBC 3.61 L (3.80-5.40) m/uL Hgb 10.8 L (11.4-16.0) gm/dL MCHC 30.4 L (31.0-37.0) g/dL Neutrophils # 22.9 H (1.3-7.7) k/uL Lymphocytes # 0.3 L (1.0-4.8) k/uL Sodium (137-145) mmol/L Potassium (3.5-5.1) mmol/L Chloride (98-107) mmol/L BUN (7-17) mg/dL Glucose (74-99) mg/dL POC Glucose (mg/dL) 126 H (70-110) mg/dL Calcium (8.4-10.2) mg/dL AST (14-36) U/L ALT (4-34) U/L Alkaline Phosphatase (38-126) U/L Total Protein (6.3-8.2) g/dL Albumin (3.5-5.0) g/dL Microbiology - Last 24 Hours (Table) 06/23/24 07:15 Blood Culture Gram Stain - Final Blood Blood Culture - Final Staphylococcus aureus Molecular ID Assessment and Plan (1) MSSA bacteremia Current Visit: Yes Status: Acute Code(s): R78.81 - BACTEREMIA; B95.61 - METHICILLIN SUSCEP STAPH [facility]CT [facility] Code(s): 261925424 (2) Leukocytosis Current Visit: Yes Status: Acute Code(s): D72.829 - ELEVATED WHITE BLOOD CELL COUNT, UNSPECIFIED SNOMED Code(s): 298651234 Plan: 1patient with MSSA bacteremia in this patient presenting to the hospital with increasing shortness of breath and a cough concerning likely for pneumonia to be likely source for this MSSA bacteremia underlying endovascular source cannot be excluded, patient also having significant abdominal pain at a tenderness etiol ogy likely bowel obstruction did not mention any colitis 2-patient did have CT of chest abdominal pelvis concerning for pneumonia and bowel obstruction 3-blood cultures repeated to be document clearance of bacteremia 4-patient to continue with cefazolin 2 g every 8 hours and Flagyl while waiting for the workup to be completed Family the bedside question answered Dictation was produced using [employer] dictation software. please excuse any grammatical, word or spelling errors.
[2024-06-25 16:22] LABS: Glucose,Whole Blood 121 mg/dL (70-110)
[2024-06-25] MEDS: MINERAL OIL 133 ML ENEMA RECTAL STA (16:48)
--- NOTE | 2024-06-25 19:47 | P.PN ---
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 We have been asked to evaluate the patient for pleural effusion and elevated BNP. Patient had a recent hospitalization and was discharged on Wednesday. During that hospitalization, patient was seen by cardiology and CHF was ruled out. Patient was treated for RSV and acute COPD exacerbation. Patient states she came back to the hospital because she was having edema in her lower extremities and she was not able to walk. She was taking Lasix at home but it did not seem to make any difference. She was told to come into the hospital for further evaluation. She is complaining of cough and congestion but is not able to bring up the phlegm. She states her stomach hurts and distended since her hospitalization earlier in the week. Blood pressure 106/63, heart rate 85, pulse ox 95% on 6 L nasal cannula. Patient has been started on IV antibiotics, IV Lasix 40 mg x 1. -EKG: Sinus rhythm with no acute ST changes. -Chest x-ray: Chronic changes. No heart failure. Persistent left basilar opacity. -Laboratory studies: WBC 48, hemoglobin 1.3, sodium 130, potassium 5.5, BUN 33 creatinine 0.95. AST 86, ALT 92, alkaline phosphatase 260. Troponin negative x 1. proBNP 3680. Cepheid viral panel not detected. -Home cardiac medications: Lasix 40 mg daily, losartan 100 mg daily, Procardia XL 90 mg daily, potassium chloride 10 mill equivalents daily, also on levothy roxine. Patient is also on prednisone taper. -Echocardiogram performed 06/11/2024: EF 45 to 50%, mild mitral, aortic and tricuspid regurgitation. Progress note 06/25/2024 Patient previously seen and will sign off on 06/23/2024. Cardiology was reconsulted on 06/24/2024 because of increased shortness of breath. Patient appears to have abdominal pain from impacted stool and she is making her difficulty to have deep breathes. She is also having atelectasis on CT scan of the chest. She is mildly volume overloaded and is on IV diuretics. No reported chest pain. Physical examination: Gen: This is an 83-year-old female appears to be in no acute distress. Frequent coughing. VS: reviewed HEENT: Head is atraumatic, normocephalic. Pupils equal, round. Sclerae is anicteric. NECK: Supple. No JVD. LUNGS: Clear to auscultation. No wheezes or rhonchi. No intercostal retractions. HEART: Regular rate and rhythm. Systolic murmur. ABDOMEN: Soft No tenderness. EXTREMITIES: No pedal edema. No calf tenderness. NEUROLOGICAL: Patient is awake, alert and oriented x3. Assessment: Recent hospitalization for RSV, acute COPD exacerbation and acute hypoxic respiratory failure Iatrogenic heart failure from fluids provided during previous hospitalization. Hypertension Hyperlipidemia History of complete heart block with dual-chamber pacemaker implantation, 2016, [facility] History of GI bleed Former nicotine dependence Plan: Continue IV Lasix Resume patient's home cardiac medications No need to repeat echocardiogram as this was done last week No further cardiac workup at this time. Anticipate signing off in next 24 hours Objective - Vital Signs Vital signs: Vital Signs Temp 98.2 F 06/25/24 16:00 Pulse 72 06/25/24 16:12 Resp 16 06/25/24 16:00 BP 118/72 06/25/24 16:00 Pulse Ox 95 06/25/24 16:00 FiO2 Intake & Output 06/25/24 06/25/24 06/26/24 06:59 18:59 06:59 Output Total 500 Balance -500 Output: Urine 500 Other: Voiding Method Indwelling Catheter - Labs CBC & Chem 7: 06/25/24 08:24 06/25/24 07:42 Labs: Abnormal Lab Results - Last 24 Hours (Table) 06/24/24 06/25/24 06/25/24 Range/Units 20:32 06:12 07:42 WBC (3.8-10.6) k/uL RBC (3.80-5.40) m/uL Hgb (11.4-16.0) gm/dL MCHC (31.0-37.0) g/dL Neutrophils # (1.3-7.7) k/uL Lymphocytes # (1.0-4.8) k/uL Sodium 129 L (137-145) mmol/L Potassium 5.5 H (3.5-5.1) mmol/L Chloride 94 L (98-107) mmol/L BUN 34 H (7-17) mg/dL Glucose 120 H (74-99) mg/dL POC Glucose (mg/dL) 135 H 128 H (70-110) mg/dL Calcium 8.2 L (8.4-10.2) mg/dL AST 47 H (14-36) U/L ALT 56 H (4-34) U/L Alkaline Phosphatase 227 H (38-126) U/L Total Protein 6.1 L (6.3-8.2) g/dL Albumin 2.8 L (3.5-5.0) g/dL 06/25/24 06/25/24 06/25/24 Range/Units 08:24 11:21 16:20 WBC 23.6 H (3.8-10.6) k/uL RBC 3.61 L (3.80-5.40) m/uL Hgb 10.8 L (11.4-16.0) gm/dL MCHC 30.4 L (31.0-37.0) g/dL Neutrophils # 22.9 H (1.3-7.7) k/uL Lymphocytes # 0.3 L (1.0-4.8) k/uL Sodium (137-145) mmol/L Potassium (3.5-5.1) mmol/L Chloride (98-107) mmol/L BUN (7-17) mg/dL Glucose (74-99) mg/dL POC Glucose (mg/dL) 126 H 121 H (70-110) mg/dL Calcium (8.4-10.2) mg/dL AST (14-36) U/L ALT (4-34) U/L Alkaline Phosphatase (38-126) U/L Total Protein (6.3-8.2) g/dL Albumin (3.5-5.0) g/dL Microbiology - Last 24 Hours (Table) 06/23/24 07:15 Blood Culture Gram Stain - Final Blood Blood Culture - Final Staphylococcus aureus Molecular ID
[2024-06-25 20:49] LABS: Glucose,Whole Blood 137 mg/dL (70-110)
--- NOTE | 2024-06-25 23:26 | PN ---
PROGRESS NOTE DATE OF SERVICE: 06/25/2024 This 83-year-old woman was admitted recently with RSV pneumonia and COPD, readmitted with multiple symptomatology. The patient possibly had staph pneumonia superimposed with possible sepsis. The patient also had abdominal distention, possibly ileus versus obstruction. CAT scan of the chest, abdomen, pelvis showed markedly dilated large bowel with focal transition point in the region of sigmoid colon, but there is an impacted stool. Multiple consultants following the patient closely. PAST MEDICAL HISTORY: Reviewed. REVIEW OF SYSTEMS: Fourteen-point review of systems negative except as mentioned earlier. CURRENT MEDICATIONS: Reviewed. PHYSICAL EXAMINATION: VITAL SIGNS: Pulse is 82, blood pressure 110/78, respirations 16. HEENT: Conjunctivae normal. NECK: No JVD. RESPIRATIONS: Breath sounds diminished at the bases. A few scattered rhonchi and crackles. ABDOMEN: Soft, distention present. LEGS: No edema, no cyanosis. No focal deficits. LABORATORY DATA: WBC 23.6, rest of the labs are noted. ASSESSMENT: 1. Chronic obstructive pulmonary disease exacerbation with bilateral pneumonia, possibly with MSSA versus hospital-acquired sepsis present on admission. 2. Abdominal distention and ileus versus obstruction, possibly secondary to impacted stool at the sigmoid colon area. 3. Possible sepsis. 4. Elevated WBC. 5. History of recent respiratory syncytial virus. 6. History of asthma, chronic obstructive pulmonary disease. 7. History of degenerative joint disease. 8. Multiple complex medical issues. RECOMMEND: To continue current management. Continue with antibiotics. MSSA has been noted. Otherwise repeat labs. Closely follow with multiple consultants including Pulmonary, Infectious Disease, and surgery. Guarded prognosis because of multiple complex medical issues. IV Tylenol. The patient and family would like to avoid morphine or Dilaudid at this point. Guarded prognosis. Further recommendations to follow. MMODL / IJN: [id number] /
[2024-06-26] MEDS: diphenhydrAMINE 50 MG/ML 1 ML VIAL IVP PRN (01:53)
[2024-06-26 05:21] LABS: Basophils % (A) 0 %; Eosinophils % (A) 0 %; HCT 31.9 % (34.0-46.0); HGB 9.8 gm/dL (11.4-16.0); Hypochromasia Slight; Lymphocytes # (A) 0.3 k/uL (1.0-4.8); Lymphocytes % (A) 1 %; MCH 30.4 pg (25.0-35.0); MCHC 30.7 g/dL (31.0-37.0); MCV 99.1 fL (80.0-100.0); Mean Platelet Volume 8.1; Monocytes # (A) 0.7 k/uL (0-1.0); Monocytes % (A) 3 %; Neutrophils # (A) 19.2 k/uL (1.3-7.7); Neutrophils % (A) 94 %; Platelet Count 227 k/uL (150-450); RBC 3.22 m/uL (3.80-5.40); RDW 14.4 % (11.5-15.5); WBC 20.3 k/uL (3.8-10.6)
[2024-06-26 05:50] LABS: ALT 30 U/L (4-34); AST 25 U/L (14-36); African American GFR (CKD) 81 (>60 ml/min/1.73 sqM); Albumin 2.4 g/dL (3.5-5.0); Alkaline Phosphatase 193 U/L (38-126); Anion Gap 5 mmol/L; Blood Urea Nitrogen 39 mg/dL (7-17); Calcium 8.2 mg/dL (8.4-10.2); Carbon Dioxide 33 mmol/L (22-30); Chloride 94 mmol/L (98-107); Glucose 125 mg/dL (74-99); Non-African American GFR(CKD) 70 (>60 ml/min/1.73 sqM); Potassium 3.8 mmol/L (3.5-5.1); Sodium 132 mmol/L (137-145); Total Bilirubin 0.5 mg/dL (0.2-1.3); Total Protein 5.2 g/dL (6.3-8.2)
[2024-06-26 06:16] LABS: Glucose,Whole Blood 122 mg/dL (70-110)
--- NOTE | 2024-06-26 09:07 | P.PN ---
Subjective Progress Note Date: 06/26/24 Principal diagnosis: Colonic distention 83-year-old female known to our service. 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 Had subsequent reversal in 2019. Since then the patient has had issues with intermittent constipation leading to partial colonic obstruction. Patient has had at least 1 if not 2 admissions for that previously. She came to the hospital because of progressive shortness of breath. Being followed by pulmonary. Some of this appear to be related to a RSV infection. She was having some shoulder d iscomfort and was taking IV narcotic medications. She believes that is the etiology for her decline in bowel function. Patient was having increased abdominal distention and some lower abdominal pain. Her white count was significantly elevated on admission although improved at [address] scan reviewed and shows proximal colonic distention with narrowing through the sigmoid. Patient's last colonoscopy 2 years ago showed extensive left-sided diverticulosis. No obvious stricture or obstruction seen at the time. This was around the time that she had one of her hospitalizations for significant constipation. Patient says she has passed flatus overnight. Still feels bloated. She is ambulating in the room with physical therapy currently. Patient is afebrile. Previous lactic acid normal. She did receive 1 enema yesterday without significant stool. Objective - Vital Signs Vital signs: Vital Signs Temp 97.5 F L 06/26/24 03:24 Pulse 82 06/26/24 03:24 Resp 16 06/26/24 03:24 BP 148/65 06/26/24 06:57 Pulse Ox 98 06/26/24 03:24 FiO2 Intake & Output 06/25/24 06/26/24 06/26/24 18:59 06:59 18:59 Output Total 500 750 Balance -500 -750 Weight 94 kg Output: Urine 500 750 Other: Voiding Method Indwelling Catheter Indwelling Catheter - Exam Abdomen: Soft, distended, mild diffuse tenderness, no rebound or guarding, pre vious scars noted - Labs CBC & Chem 7: 06/26/24 04:36 06/26/24 04:36 Labs: Abnormal Lab Results - Last 24 Hours (Table) 06/25/24 06/25/24 06/25/24 Range/Units 11:21 16:20 20:47 WBC (3.8-10.6) k/uL RBC (3.80-5.40) m/uL Hgb (11.4-16.0) gm/dL Hct (34.0-46.0) % MCHC (31.0-37.0) g/dL Neutrophils # (1.3-7.7) k/uL Lymphocytes # (1.0-4.8) k/uL Sodium (137-145) mmol/L Chloride (98-107) mmol/L Carbon Dioxide (22-30) mmol/L BUN (7-17) mg/dL Glucose (74-99) mg/dL POC Glucose (mg/dL) 126 H 121 H 137 H (70-110) mg/dL Calcium (8.4-10.2) mg/dL Alkaline Phosphatase (38-126) U/L Total Protein (6.3-8.2) g/dL Albumin (3.5-5.0) g/dL 06/26/24 06/26/24 06/26/24 Range/Units 04:36 04:36 06:12 WBC 20.3 H (3.8-10.6) k/uL RBC 3.22 L (3.80-5.40) m/uL Hgb 9.8 L (11.4-16.0) gm/dL Hct 31.9 L (34.0-46.0) % MCHC 30.7 L (31.0-37.0) g/dL Neutrophils # 19.2 H (1.3-7.7) k/uL Lymphocytes # 0.3 L (1.0-4.8) k/uL Sodium 132 L (137-145) mmol/L Chloride 94 L (98-107) mmol/L Carbon Dioxide 33 H (22-30) mmol/L BUN 39 H (7-17) mg/dL Glucose 125 H (74-99) mg/dL POC Glucose (mg/dL) 122 H (70-110) mg/dL Calcium 8.2 L (8.4-10.2) mg/dL Alkaline Phosphatase 193 H (38-126) U/L Total Protein 5.2 L (6.3-8.2) g/dL Albumin 2.4 L (3.5-5.0) g/dL Microbiology - Last 24 Hours (Table) 06/23/24 07:15 Blood Culture Gram Stain - Final Blood Blood Culture - Final Staphylococcus aureus Molecular ID Assessment and Plan (1) Partial obstruction of colon Narrative/Plan: 83-year-old female with partial colon obstruction exacerbated by constipation. Will give 1 dose of lactulose today. Additional soapsuds enema today. Recheck abdominal films tomorrow. May consider Gastrografin enema based on tomorrow's x-ray findings. Patient is very against the notion of surgical intervention since it likely would require ostomy once again. Will follow closely. Current Visit: Yes Status: Acute Code(s): K56.600 - PARTIAL INTESTINAL OBSTRUCTION, UNSPECIFIED TO CAUSE SNOMED Code(s): [id number]
[2024-06-26] MEDS: LACTULOSE 20 GM/30 ML CUP PO SCH (09:14)
[2024-06-26] MEDS: FUROSEMIDE 40 MG TAB PO SCH (09:20)
[2024-06-26] MEDS: ZINC OXIDE PASTE (Z-GUARD) 1 APPLIC TOPICAL PRN (11:05)
[2024-06-26 11:39] LABS: Glucose,Whole Blood 125 mg/dL (70-110)
[2024-06-26] MEDS: HYDROCORTISONE 1% CREAM 30 GM TUBE TOPICAL PRN (12:43)
--- NOTE | 2024-06-26 13:52 | P.PN ---
Subjective Progress Note Date: 06/26/24 This is an 83-year-old female patient follows with [facility] in [facility] with past medical history of COPD, hypertension, hyperlipidemia, complete heart block with pacemaker implantation, GI bleed, former nicotine dependence. We have been asked to evaluate the patient for pleural effusion and elevated BNP. Patient had a recent hospitalization and was discharged on Wednesday. During that hospitalization, patient was seen by cardiology and CHF was ruled out. Patient was treated for RSV and acute COPD exacerbation. Patient states she came back to the hospital because she was having edema in her lower extremities and she was not able to walk. She was taking Lasix at home but it did not seem to make any difference. She was told to come into the hospital for further evaluation. She is complaining of cough and congestion but is not able to bring up the phlegm. She states her stomach hurts and distended since her hospitalization earlier in the week. Blood pressure 106/63, heart rate 85, pulse ox 95% on 6 L nasal cannula. Patient has been started on IV antibiotics, IV Lasix 40 mg x 1. -EKG: Sinus rhythm with no acute ST changes. -Chest x-ray: Chronic changes. No heart failure. Persistent left basilar opacity. -Laboratory studies: WBC 48, hemoglobin 1.3, sodium 130, potassium 5.5, BUN 33 creatinine 0.95. AST 86, ALT 92, alkaline phosphatase 260. Troponin negative x 1. proBNP 3680. Cepheid viral panel not detected. -Home cardiac medications: Lasix 40 mg daily, losartan 100 mg daily, Procardia XL 90 mg daily, potassium chloride 10 mill equivalents daily, also on levothy roxine. Patient is also on prednisone taper. -Echocardiogram performed 06/11/2024: EF 45 to 50%, mild mitral, aortic and tricuspid regurgitation. Progress note 06/25/2024 Patient previously seen and will sign off on 06/23/2024. Cardiology was reconsulted on 06/24/2024 because of increased shortness of breath. Patient appears to have abdominal pain from impacted stool and she is making her difficulty to have deep breathes. She is also having atelectasis on CT scan of the chest. She is mildly volume overloaded and is on IV diuretics. No reported chest pain. 06/26 Patient seen and examined. Patient states her breathing is okay. She is currently on 3 L nasal cannula with pulse ox of 90%. Heart rate is in the 90s, blood pressure 128/82. Patient's main concern is that she has not had a bowel movement. Repeat blood work reveals WBC 20, hemoglobin 9.8, BUN 39 creatinine 0.79 and potassium 3.8. Physical examination: Gen: This is an 83-year-old female appears to be in no acute distress. Frequent coughing. VS: reviewed HEENT: Head is atraumatic, normocephalic. Pupils equal, round. Sclerae is anicteric. NECK: Supple. No JVD. LUNGS: Clear to auscultation. No wheezes or rhonchi. No intercostal retractions. HEART: Regular rate and rhythm. Systolic murmur. ABDOMEN: Soft No tenderness. EXTREMITIES: No pedal edema. No calf tenderness. NEUROLOGICAL: Patient is awake, alert and oriented x3. Assessment: Recent hospitalization for RSV, acute COPD exacerbation and acute hypoxic resp iratory failure Iatrogenic heart failure from fluids provided during previous hospitalization. Hypertension Hyperlipidemia History of complete heart block with dual-chamber pacemaker implantation, 2016, [facility] History of GI bleed Former nicotine dependence Plan: Transition IV Lasix to oral 40 mg daily Continue patient's home cardiac medications No need to repeat echocardiogram as this was done last week No further cardiac workup at this time. Nurse practitioner note has been reviewed, I agree with documented findings and plan of care. Patient was seen and examined. Objective - Vital Signs Vital signs: Vital Signs Temp 97.5 F L 06/26/24 03:24 Pulse 97 06/26/24 09:06 Resp 16 06/26/24 03:24 BP 148/65 06/26/24 06:57 Pulse Ox 90 L 06/26/24 09:08 FiO2 Intake & Output 06/25/24 06/26/24 06/26/24 18:59 06:59 18:59 Output Total 500 750 Balance -500 -750 Weight 94 kg Output: Urine 500 750 Other: Voiding Method Indwelling Catheter Indwelling Catheter - Labs CBC & Chem 7: 06/26/24 04:36 06/26/24 04:36 Labs: Abnormal Lab Results - Last 24 Hours (Table) 06/25/24 06/25/24 06/25/24 Range/Units 11:21 16:20 20:47 WBC (3.8-10.6) k/uL RBC (3.80-5.40) m/uL Hgb (11.4-16.0) gm/dL Hct (34.0-46.0) % MCHC (31.0-37.0) g/dL Neutrophils # (1.3-7.7) k/uL Lymphocytes # (1.0-4.8) k/uL Sodium (137-145) mmol/L Chloride (98-107) mmol/L Carbon Dioxide (22-30) mmol/L BUN (7-17) mg/dL Glucose (74-99) mg/dL POC Glucose (mg/dL) 126 H 121 H 137 H (70-110) mg/dL Calcium (8.4-10.2) mg/dL Alkaline Phosphatase (38-126) U/L Total Protein (6.3-8.2) g/dL Albumin (3.5-5.0) g/dL 06/26/24 06/26/24 06/26/24 Range/Units 04:36 04:36 06:12 WBC 20.3 H (3.8-10.6) k/uL RBC 3.22 L (3.80-5.40) m/uL Hgb 9.8 L (11.4-16.0) gm/dL Hct 31.9 L (34.0-46.0) % MCHC 30.7 L (31.0-37.0) g/dL Neutrophils # 19.2 H (1.3-7.7) k/uL Lymphocytes # 0.3 L (1.0-4.8) k/uL Sodium 132 L (137-145) mmol/L Chloride 94 L (98-107) mmol/L Carbon Dioxide 33 H (22-30) mmol/L BUN 39 H (7-17) mg/dL Glucose 125 H (74-99) mg/dL POC Glucose (mg/dL) 122 H (70-110) mg/dL Calcium 8.2 L (8.4-10.2) mg/dL Alkaline Phosphatase 193 H (38-126) U/L Total Protein 5.2 L (6.3-8.2) g/dL Albumin 2.4 L (3.5-5.0) g/dL Microbiology - Last 24 Hours (Table) 06/23/24 07:15 Blood Culture Gram Stain - Final Blood Blood Culture - Final Staphylococcus aureus Molecular ID
--- NOTE | 2024-06-26 15:05 | P.PN ---
Subjective Progress Note Date: 06/26/24 Principal diagnosis: Reason for follow-up is pneumonia and bacteremia Patient is a 83-year-old female with a past medical history significant for asthma COPD GI bleed musculoskeletal disorder presenting to the hospital for evaluation of increasing shortness of breath patient did have possible culture with MSSA prompted this consultation, did have a CT of the chest abdominal pelvis concerning for left upper right middle lobe consolidation suggestive of pneumonia and large stool burden concerning for large bowel obstruction On today's evaluation that is 06/26/2024, patient has been afebrile, patient is breathing slightly comfortably and is currently on 3 L current oxygen, patient denies having any chest pain still complaining of cough but not bring up any sputum currently complains of lower abdominal discomfort and denies any bowel movement. Patient white count is down to 20.3, creatinine 0.79 blood culture with Staph aureus repeat cultures are pending Objective - Vital Signs Vital signs: Vital Signs Temp 97.8 F 06/26/24 08:00 Pulse 94 06/26/24 12:26 Resp 18 06/26/24 11:51 BP 128/82 06/26/24 11:51 Pulse Ox 95 06/26/24 11:51 FiO2 Intake & Output 06/25/24 06/26/24 06/26/24 18:59 06:59 18:59 Intake Total 240 Output Total 500 750 825 Balance -500 750 -585 Weight 94 kg Intake: Oral 240 Output: Urine 500 750 825 Other: Voiding Method Indwelling Catheter Indwelling Catheter Indwelling Catheter # Bowel Movements 1 - Exam GENERAL DESCRIPTION: An elderly female up in the chair in no distress RESPIRATORY SYSTEM: Unlabored breathing , decreased breath sounds at bases HEART: S1 S2 regular rate and rhythm , ABDOMEN: Soft , mild distention and tenderness EXTREMITIES: No edema feet - Labs CBC & Chem 7: 06/26/24 04:36 06/26/24 04:36 Labs: Abnormal Lab Results - Last 24 Hours (Table) 06/25/24 06/25/24 06/26/24 Range/Units 16:20 20:47 04:36 WBC 20.3 H (3.8-10.6) k/uL RBC 3.22 L (3.80-5.40) m/uL Hgb 9.8 L (11.4-16.0) gm/dL Hct 31.9 L (34.0-46.0) % MCHC 30.7 L (31.0-37.0) g/dL Neutrophils # 19.2 H (1.3-7.7) k/uL Lymphocytes # 0.3 L (1.0-4.8) k/uL Sodium (137-145) mmol/L Chloride (98-107) mmol/L Carbon Dioxide (22-30) mmol/L BUN (7-17) mg/dL Glucose (74-99) mg/dL POC Glucose (mg/dL) 121 H 137 H (70-110) mg/dL Calcium (8.4-10.2) mg/dL Alkaline Phosphatase (38-126) U/L Total Protein (6.3-8.2) g/dL Albumin (3.5-5.0) g/dL 06/26/24 06/26/24 06/26/24 Range/Units 04:36 06:12 11:38 WBC (3.8-10.6) k/uL RBC (3.80-5.40) m/uL Hgb (11.4-16.0) gm/dL Hct (34.0-46.0) % MCHC (31.0-37.0) g/dL Neutrophils # (1.3-7.7) k/uL Lymphocytes # (1.0-4.8) k/uL Sodium 132 L (137-145) mmol/L Chloride 94 L (98-107) mmol/L Carbon Dioxide 33 H (22-30) mmol/L BUN 39 H (7-17) mg/dL Glucose 125 H (74-99) mg/dL POC Glucose (mg/dL) 122 H 125 H (70-110) mg/dL Calcium 8.2 L (8.4-10.2) mg/dL Alkaline Phosphatase 193 H (38-126) U/L Total Protein 5.2 L (6.3-8.2) g/dL Albumin 2.4 L (3.5-5.0) g/dL Microbiology - Last 24 Hours (Table) 06/23/24 07:15 Blood Culture Gram Stain - Final Blood Blood Culture - Final Staphylococcus aureus Molecular ID Assessment and Plan (1) MSSA bacteremia Current Visit: Yes Status: Acute Code(s): R78.81 - BACTEREMIA; B95.61 - METHICILLIN SUSCEP STAPH INFCT CAUSING DIS CLASSD [id number] SNOMED Code(s): 411696879 (2) Leukocytosis Current Visit: Yes Status: Acute Code(s): D72.829 - ELEVATED WHITE BLOOD CELL COUNT, UNSPECIFIED SNOMED Code(s): 602057647 Plan: 1patient with MSSA bacteremia in this patient presenting to the hospital with increasing shortness of breath and a cough concerning likely for pneumonia to be likely source for this MSSA bacteremia underlying endovascular source cannot be excluded, patient also having significant abdominal pain at a tenderness etiology likely bowel obstruction did not mention any colitis 2-patient did have CT of chest abdominal pelvis concerning for pneumonia and bowel obstruction 3-blood cultures has been repeated to be document clearance of bacteremia which are currently pending 4-patient is afebrile patient white count is trending down to continue with cefazolin 2 g every 8 hours and Flagyl while waiting for the workup to be completed Dictation was produced using [employer] dictation software. please excuse any grammatical, word or spelling errors. Time with Patient: Less than 30
--- NOTE | 2024-06-26 15:17 | P.PN ---
Subjective Progress Note Date: 06/26/24 This is an 83 year old female with medical history of asthma, COPD, permanent pacemaker, hypertension, hyperlipidemia, GI bleed, recent admission for RSV. Patient was discharged home on Wednesday from this hospital she was treated during that stay for acute RSV, COPD exacerbation and pneumonia. She had been recommended for subacute rehab although patient and family had opted for return home on discharge. Patient was discharged on 3L of oxygen which has has been wearing, since arrival home she has been increasingly short of breath, having continued cough and noted to have significant lower extremity edema. Because of the edema patient was unable to ambulate. She has been taking oral lasix at home without improvement in her symptoms. Patient was found to be hypoxic with saturations in the 80s and brought to the hospital for further evaluation. Patient noted to have significant abdominal distention and states she has not had a good sized bowel movement since Wednesday. Now patient returns with chest xray revealing cardiomegaly with small left pleural effusion and left basilar acute infiltrate and or atelectasis. proBNP was elevated at 3680. Echocardiogram completed on June 13 during prior admission reveals an EF of 45- 50%.Patient had white blood cell count of 48. Sodium of 130, potassium 5.5, elevation of LFTs, procalcitonin level of 16.40. Viral panel is negative for influenza, RSV and covid. Patient was started empirically on IV ceftriaxone and IV solumedrol. Cultures were taken. Pulmonology and cardiology consulted. 06/26/2024 Patient is evaluated in follow-up on the medical floor. She is complaining of less shortness of breath. She remains on oxygen via nasal cannula at 4 L with saturations of 95%. Lungs at this point are essentially diminished with no wheezing or crackles noted. She has been transition to oral Lasix and appears euvolemic at this time. Patient's main complaint is her abdominal distention and she has been unable to have a bowel movement for over a week now. She received multiple enemas a dose of lactulose and had a small smear but no significant bowel movement. She is adamant that she does not want surgery as she does not want a colostomy. Dr. Hutton following this patient closely. Labs today reveal a white blood cell count of 20.3, hemoglobin 9.8, sodium 132, BUN of 39 creatinine of 0.79. Blood glucose remained stable in the 120s. REVIEW OF SYSTEMS: CONSTITUTIONAL: No fever, Reports fatigue HEENT: No recent visual problems or hearing problems. Denied any sore throat. CARDIOVASCULAR: No chest pain, orthopnea, PND, no palpitations, no syncope. PULMONARY: Reports shortness of breath and cough, no hemoptysis. GASTROINTESTINAL: No diarrhea, no nausea, no vomiting, no abdominal pain. Reports abdominal distention and no bowel movement NEUROLOGICAL: No headaches, no weakness, no numbness. PHYSICAL EXAMINATION: GENERAL: The patient is alert and oriented x3, not in any acute distress. Well developed, well nourished. on 4L of oxygen. HEENT: Pupils are round and equally reacting to light. EOMI. No scleral icterus. No conjunctival pallor. Normocephalic, atraumatic. No pharyngeal erythema. No thyromegaly. CARDIOVASCULAR: S1 and S2 present. No murmurs, rubs, or gallops. PULMONARY: Chest is clear to auscultation, no wheezing or crackles. ABDOMEN: Soft, nontender, distended with tympanic sounds, hypo-active bowel soun ds. No palpable organomegaly. MUSCULOSKELETAL: No joint swelling or deformity. EXTREMITIES: No cyanosis, clubbing, or pedal edema. Mild peripheral edema NEUROLOGICAL: Gross neurological examination did not reveal any focal deficits. Generalized weakness SKIN: No rashes. Assessment and Plan Abdominal distention with concern for ileus vs. SBO Acute on chronic hypoxemic respiratory failure secondary to acute exacerbation of systolic CHF Staph aureus bacteremia Leukocytosis possibly from recent steroid injection to shoulder Recent RSV infection requiring home oxygen on discharge Volume overload likely from fluids received during prior hospital stay Transaminitis likely from vascular congestion Hypervolemic hyponatremia Hyperkalemia Urinary retention requiring indwelling medina catheter Hypertension Hyperlipidemia Complete heart block and permanent pacemaker Asthma/COPD Hx of diverticulitis with colostomy and reversal Hx GI bleed GI prophylaxis DVT prophylaxis Full Code Plan Of antibiotics in the form of IV cefazolin and oral metronidazole Blood culture was repeated yesterday and need to document clearance prior to discharge ID following cultures closely General surgery consultation and patient has been made NPO Has received multiple enemas and doses of lactulose without bowel movement patient is adamant that she would like to continue to try conservative measures and general surgery planning to repeat abdominal imaging tomorrow Indweling medina catheter has been placed Losartan remains on hold Patient has been transition to oral Lasix and appears euvolemic at this time Continue oxygen support Cardiology, pulmonology consultation Repeat BMP/CBC in the AM PT/OT consultation The impression and plan of care has been dictated by Anh Moore, Nurse Practitioner as directed. Dr. Faheem MD I have performed a history and physical examination and medical decision making of this patient, discussed the same with the dictator, and agree with the dictators assessment and plan as written, documented as a scribe. Based on total visit time, I have performed more than 50% of this visit. Objective - Vital Signs Vital signs: Vital Signs Temp 97.8 F 06/26/24 08:00 Pulse 94 06/26/24 12:26 Resp 18 06/26/24 11:51 BP 128/82 06/26/24 11:51 Pulse Ox 95 06/26/24 11:51 FiO2 Intake & Output 06/25/24 06/26/24 06/26/24 18:59 06:59 18:59 Intake Total 240 Output Total 500 750 825 Balance -500 750 -585 Weight 94 kg Intake: Oral 240 Output: Urine 500 750 825 Other: Voiding Method Indwelling Catheter Indwelling Catheter Indwelling Catheter # Bowel Movements 1 - Labs CBC & Chem 7: 06/26/24 04:36 06/26/24 04:36 Labs: Abnormal Lab Results - Last 24 Hours (Table) 06/25/24 06/25/24 06/26/24 Range/Units 16:20 20:47 04:36 WBC 20.3 H (3.8-10.6) k/uL RBC 3.22 L (3.80-5.40) m/uL Hgb 9.8 L (11.4-16.0) gm/dL Hct 31.9 L (34.0-46.0) % MCHC 30.7 L (31.0-37.0) g/dL Neutrophils # 19.2 H (1.3-7.7) k/uL Lymphocytes # 0.3 L (1.0-4.8) k/uL Sodium (137-145) mmol/L Chloride (98-107) mmol/L Carbon Dioxide (22-30) mmol/L BUN (7-17) mg/dL Glucose (74-99) mg/dL POC Glucose (mg/dL) 121 H 137 H (70-110) mg/dL Calcium (8.4-10.2) mg/dL Alkaline Phosphatase (38-126) U/L Total Protein (6.3-8.2) g/dL Albumin (3.5-5.0) g/dL 06/26/24 06/26/24 06/26/24 Range/Units 04:36 06:12 11:38 WBC (3.8-10.6) k/uL RBC (3.80-5.40) m/uL Hgb (11.4-16.0) gm/dL Hct (34.0-46.0) % MCHC (31.0-37.0) g/dL Neutrophils # (1.3-7.7) k/uL Lymphocytes # (1.0-4.8) k/uL Sodium 132 L (137-145) mmol/L Chloride 94 L (98-107) mmol/L Carbon Dioxide 33 H (22-30) mmol/L BUN 39 H (7-17) mg/dL Glucose 125 H (74-99) mg/dL POC Glucose (mg/dL) 122 H 125 H (70-110) mg/dL Calcium 8.2 L (8.4-10.2) mg/dL Alkaline Phosphatase 193 H (38-126) U/L Total Protein 5.2 L (6.3-8.2) g/dL Albumin 2.4 L (3.5-5.0) g/dL Microbiology - Last 24 Hours (Table) 06/23/24 07:15 Blood Culture Gram Stain - Final Blood Blood Culture - Final Staphylococcus aureus Molecular ID Assessment and Plan Time with Patient: Greater than 30
--- NOTE | 2024-06-26 15:50 | P.PN ---
Subjective Progress Note Date: 06/26/24 On 06/26/2024, the patient is being seen for a follow-up. The patient is currently comfortable on 4 L of oxygen by nasal cannula. The patient has staff aureus septicemia and the blood culture was positive for MSSA. Meanwhile, I reviewed the CAT scan of the chest abdomen and pelvis that was done on 06/24/2024. I am concerned of the patchy pulmonary potential the patient has peripherally in the right upper lobe and the left upper lobe and those infiltrates have some central cavitation. Based on that, the possibility of septic embolism cannot be completely ruled out. A previous echocardiogram that was done on this patient back in 06/12/2024 showed no valvular vegetation and the patient had a preserved LV function with mild impairment in ejection fraction of 45 to 50%. I think it is worthwhile to repeat the blood cultures and repeat echocardiogram to rule out any possibility of infective endocarditis. Meanwhile, the patient continues to have difficulties with bowel obstruction. She is not sure when was the last bowel movement. She thinks it was approximately 5 days ago. She has a pacema ker in place. The cardiac rhythm is normal sinus at this point. She remains on IV cefazolin. He is also on Flagyl 500 mg p.o. 3 times daily and IV Solu-Medrol 40 mg every 12 hours. He remains on DuoNeb nebulized treatments [id number]. General surgery is on the case regarding her bowel obs truction. The patient is a partial obstruction of the colon exacerbated by constipation. She was given lactulose today to enemas. Objective - Vital Signs Vital signs: Vital Signs Temp 97.8 F 06/26/24 08:00 Pulse 94 06/26/24 12:26 Resp 18 06/26/24 11:51 BP 128/82 06/26/24 11:51 Pulse Ox 95 06/26/24 11:51 FiO2 Intake & Output 06/25/24 06/26/24 06/26/24 18:59 06:59 18:59 Intake Total 240 Output Total 500 750 825 Balance -500 -750 -585 Weight 94 kg Intake: Oral 240 Output: Urine 500 750 825 Other: Voiding Method Indwelling Catheter Indwelling Catheter Indwelling Catheter # Bowel Movements 1 - Exam No acute distress, oriented 3. The patient is currently on 4 L of nasal cannula. No audible wheezing. No use of accessory muscles. HEENT examination is grossly unremarkable. Mucous membranes are moist. No oral lesions. Neck supple. Full range of motion. No adenopathy thyromegaly or neck vein distention. Cardiovascular examination reveals regular rhythm rate. S1-S2 normal. No S3 or S4. No discernible murmur noted. Lungs reveal mild scattered rhonchi, at the left lung base. No wheezes. No crackles. Right lung is relatively clear. Abdomen soft bowel sounds are heard. No masses or tenderness. Abdomen is slightly distended. There is no tenderness. Bowel sounds are hypoactive. Extremities are intact. No cyanosis or clubbing. Mild edema is present. Skin is without rash or lesion. Neurologic examination is brief but nonfocal. - Labs CBC & Chem 7: 06/26/24 04:36 06/26/24 04:36 Labs: Abnormal Lab Results - Last 24 Hours (Table) 06/25/24 06/25/24 06/26/24 Range/Units 16:20 20:47 04:36 WBC 20.3 H (3.8-10.6) k/uL RBC 3.22 L (3.80-5.40) m/uL Hgb 9.8 L (11.4-16.0) gm/dL Hct 31.9 L (34.0-46.0) % MCHC 30.7 L (31.0-37.0) g/dL Neutrophils # 19.2 H (1.3-7.7) k/uL Lymphocytes # 0.3 L (1.0-4.8) k/uL Sodium (137-145) mmol/L Chloride (98-107) mmol/L Carbon Dioxide (22-30) mmol/L BUN (7-17) mg/dL Glucose (74-99) mg/dL POC Glucose (mg/dL) 121 H 137 H (70-110) mg/dL Calcium (8.4-10.2) mg/dL Alkaline Phosphatase (38-126) U/L Total Protein (6.3-8.2) g/dL Albumin (3.5-5.0) g/dL 06/26/24 06/26/24 06/26/24 Range/Units 04:36 06:12 11:38 WBC (3.8-10.6) k/uL RBC (3.80-5.40) m/uL Hgb (11.4-16.0) gm/dL Hct (34.0-46.0) % MCHC (31.0-37.0) g/dL Neutrophils # (1.3-7.7) k/uL Lymphocytes # (1.0-4.8) k/uL Sodium 132 L (137-145) mmol/L Chloride 94 L (98-107) mmol/L Carbon Dioxide 33 H (22-30) mmol/L BUN 39 H (7-17) mg/dL Glucose 125 H (74-99) mg/dL POC Glucose (mg/dL) 122 H 125 H (70-110) mg/dL Calcium 8.2 L (8.4-10.2) mg/dL Alkaline Phosphatase 193 H (38-126) U/L Total Protein 5.2 L (6.3-8.2) g/dL Albumin 2.4 L (3.5-5.0) g/dL Microbiology - Last 24 Hours (Table) 06/23/24 07:15 Blood Culture Gram Stain - Final Blood Blood Culture - Final Staphylococcus aureus Molecular ID Assessment and Plan Plan: Acute on chronic hypoxemic respiratory failure secondary to an acute exacerbation of systolic congestive heart failure. the patient is currently on 4 L of oxygen by nasal cannula. CAT scan of the chest was noted and the patient has patchy peripheral pulmonary opacities left upper lobe and the right upper lobe with some central cavitation. Rule out septic emboli Staph aureus septicemia, still under investigation the patient remains on IV cefazolin. This is an MSSA infection. 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 Rule out endovascular infection and the patient has a pacemaker in place. Leukocytosis secondary to bacteremia with presumptive Staph aureus. The white cell count is improving and it was as high as 48,000 currently down to 20 Abdominal pain secondary to suspected colonic ileus/obstruction. There is a partial small bowel obstruction. General surgery is on the case. Hyponatremia, improving. Hyperkalemia, improved. Transaminitis, improving. Recent hospitalization from June 10 to June 20, 2024 for RSV infection, COPD exacerbation, right lower lobe pneumonia. Acute on chronic pain secondary to degenerative arthritis requiring pain clinic intervention. History of complicated diverticulitis requiring colectomy, colostomy and subsequent reversal. Complete heart block requiring permanent pacemaker implantation. Multiple orthopedic surgeries due to degenerative arthritis. History of skin cancer, removed. History of migraines. Hypothyroidism status post partial thyroidectomy. Poor overall functional performance based on the above-mentioned multiple comorbidities. Plan: Keep the patient on 4 L of oxygen by nasal cannula Continue DuoNeb updrafts Discontinue IV Solu-Medrol Continue IV cefazolin Repeat blood cultures Suggest repeating a limited echocardiogram to reevaluate the cardiac valves to rule out endocarditis ID is on the case General Surgery is on the case White cell count is improving No hypotension Soapsuds enemas and the patient was given lactulose We will continue to follow. Time with Patient: Greater than 30
--- NOTE | 2024-06-26 17:01 | CA ---
Transthoracic Echo Report Name: Guera Lopez Age: 83 Gender: F : 1940 Exam Date: 06/26/2024 14:09 Exam Location: [facility] Ht (in): 67 Wt (lb): 207 Ordering Physician: Arias Marte MD Attending/Referring Phys: Food Assembler Elisa Head RDCS Procedure CPT: Indications: rule out endocarditis, check valves Cardiac Hx: Technical Quality: Fair Contrast 1: Total Dose (mL): Contrast 2: Total Dose (mL): MEASUREMENTS (Male / Female) Normal Values DOPPLER TR Peak Velocity 304.4 cm/s TR Peak Gradient 37.1 mmHg FINDINGS Left Ventricle Right Ventricle Right Atrium Catheter/pacemaker wire in the right atrial cavity. Left Atrium Mitral Valve Structurally normal mitral valve. No mitral stenosis. Mild mitral regurgitation. Aortic Valve Trileaflet aortic valve. Diffuse thickening (sclerosis) of the aortic valve cusps without reduced excursion. Trace aortic regurgitation. Tricuspid Valve Structurally normal tricuspid valve. Mild tricuspid regurgitation. No tricuspid stenosis. Pulmonic Valve Structurally normal pulmonic valve. No pulmonic stenosis. Trace pulmonic regurgitation. Pericardium No pericardial or pleural effusion. Aorta CONCLUSIONS Limited 2-D echo Left ventricular ejection fraction 55% Mild mitral regurgitation Trace aortic regurgitation Mild tricuspid regurgitation No vegetations noted Previewed by: Dr. Tomer Aviles DO (Electronically Signed) Final Date: 26 June 2024 17:00
[2024-06-27 07:25] LABS: Basophils % (A) 0 %; Eosinophils # (A) 0.1 k/uL (0-0.7); Eosinophils % (A) 1 %; HCT 35.4 % (34.0-46.0); HGB 10.8 gm/dL (11.4-16.0); Hypochromasia Slight; Lymphocytes # (A) 0.7 k/uL (1.0-4.8); Lymphocytes % (A) 5 %; MCH 29.9 pg (25.0-35.0); MCHC 30.5 g/dL (31.0-37.0); MCV 98.1 fL (80.0-100.0); Mean Platelet Volume 7.4; Monocytes # (A) 0.8 k/uL (0-1.0); Monocytes % (A) 6 %; Neutrophils # (A) 11.3 k/uL (1.3-7.7); Neutrophils % (A) 86 %; Platelet Count 250 k/uL (150-450); RDW 14.3 % (11.5-15.5); WBC 13.2 k/uL (3.8-10.6)
[2024-06-27 07:42] LABS: African American GFR (CKD) 85 (>60 ml/min/1.73 sqM); Anion Gap 3 mmol/L; Blood Urea Nitrogen 29 mg/dL (7-17); Calcium 8.3 mg/dL (8.4-10.2); Carbon Dioxide 35 mmol/L (22-30); Chloride 96 mmol/L (98-107); Glucose 87 mg/dL (74-99); Non-African American GFR(CKD) 74 (>60 ml/min/1.73 sqM); Potassium 3.4 mmol/L (3.5-5.1); Sodium 134 mmol/L (137-145)
--- NOTE | 2024-06-27 08:16 | XR ---
EXAMINATION TYPE: XR abdomen 2V DATE OF EXAM: 06/27/2024 6:55 AM COMPARISON: 06/23/2024 CLINICAL INDICATION: Female, 83 years old with history of Follow-up colonic distention; TECHNIQUE: Two views of the abdomen were obtained. FINDINGS: There is gaseous distention of predominantly large bowel in the upper abdomen. Right hip ar throplasty. Cardiac pacemaker is present. Trace bilateral pleural effusions. Heart is mildly enlarged for size. Multilevel degeneration changes of the spine. IMPRESSION: Similar distention of what is thought to be predominantly large bowel and small bowel throughout the abdomen. [facility], , 06/27/2024 8:14 AM
[2024-06-27] MEDS: POTASSIUM CHLORIDE ER 20 MEQ TAB.ER PO STA (10:28)
[2024-06-27] MEDS: GABAPENTIN 100 MG CAP PO STA (11:21)
--- NOTE | 2024-06-27 13:24 | P.PN ---
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 We have been asked to evaluate the patient for pleural effusion and elevated BNP. Patient had a recent hospitalization and was discharged on Wednesday. During that hospitalization, patient was seen by cardiology and CHF was ruled out. Patient was treated for RSV and acute COPD exacerbation. Patient states she came back to the hospital because she was having edema in her lower extremities and she was not able to walk. She was taking Lasix at home but it did not seem to make any difference. She was told to come into the hospital for further evaluation. She is complaining of cough and congestion but is not able to bring up the phlegm. She states her stomach hurts and distended since her hospitalization earlier in the week. Blood pressure 106/63, heart rate 85, pulse ox 95% on 6 L nasal cannula. Patient has been started on IV antibiotics, IV Lasix 40 mg x 1. -EKG: Sinus rhythm with no acute ST changes. -Chest x-ray: Chronic changes. No heart failure. Persistent left basilar opacity. -Laboratory studies: WBC 48, hemoglobin 1.3, sodium 130, potassium 5.5, BUN 33 creatinine 0.95. AST 86, ALT 92, alkaline phosphatase 260. Troponin negative x 1. proBNP 3680. Cepheid viral panel not detected. -Home cardiac medications: Lasix 40 mg daily, losartan 100 mg daily, Procardia XL 90 mg daily, potassium chloride 10 mill equivalents daily, also on levothy roxine. Patient is also on prednisone taper. -Echocardiogram performed 06/11/2024: EF 45 to 50%, mild mitral, aortic and tricuspid regurgitation. Progress note 06/25/2024 Patient previously seen and will sign off on 06/23/2024. Cardiology was reconsulted on 06/24/2024 because of increased shortness of breath. Patient appears to have abdominal pain from impacted stool and she is making her difficulty to have deep breathes. She is also having atelectasis on CT scan of the chest. She is mildly volume overloaded and is on IV diuretics. No reported chest pain. 06/26 Patient seen and examined. Patient states her breathing is okay. She is currently on 3 L nasal cannula with pulse ox of 90%. Heart rate is in the 90s, blood pressure 128/82. Patient's main concern is that she has not had a bowel movement. Repeat blood work reveals WBC 20, hemoglobin 9.8, BUN 39 creatinine 0.79 and potassium 3.8. 06/27 Patient seen and examined. Patient denies chest pain, shortness of breath, palpitations. Patient has ongoing difficulty with constipation concerning for ileus/bowel obstruction. She apparently received enemas yesterday and had a bowel movement overnight. General surgery is on consult for this. Blood pressure 149/77, heart rate 79, pulse ox 93% on 4 L nasal cannula. Repeat blood work reveals hemoglobin 10.8, sodium 134, potassium 3.5, BUN 29 creatinine 0.75. Potassium has been replaced. Physical examination: Gen: This is an 83-year-old female appears to be in no acute distress. Frequent coughing. VS: reviewed HEENT: Head is atraumatic, normocephalic. Pupils equal, round. Sclerae is anicteric. NECK: Supple. No JVD. LUNGS: Clear to auscultation. No wheezes or rhonchi. No intercostal retractions. HEART: Regular rate and rhythm. Systolic murmur. ABDOMEN: Soft No tenderness. EXTREMITIES: No pedal edema. No calf tenderness. NEUROLOGICAL: Patient is awake, alert and oriented x3. Assessment: Recent hospitalization for RSV, acute COPD exacerbation and acute hypoxic respiratory failure Iatrogenic heart failure from fluids provided during previous hospitalization. Hypertension Hyperlipidemia History of complete heart block with dual-chamber pacemaker implantation, 2016, [facility] History of GI bleed Former nicotine dependence Plan: Continue Lasix oral 40 mg daily Continue patient's home cardiac medications No need to repeat echocardiogram as this was done last week No further cardiac workup at this time. Cardiology will sign off this case and follow on an as-needed basis. Please reconsult for any new concerns. Patient may follow-up with her primary cardio logist in [place] in one to 2 weeks. Nurse practitioner note has been reviewed, I agree with documented findings and plan of care. Patient was seen and examined. Objective - Vital Signs Vital signs: Vital Signs Temp 98.0 F 06/27/24 04:00 Pulse 84 06/27/24 04:00 Resp 16 06/27/24 04:00 BP 159/71 06/27/24 04:00 Pulse Ox 94 L 06/27/24 04:00 FiO2 Intake & Output 06/26/24 06/27/24 06/27/24 18:59 06:59 18:59 Intake Total 360 Output Total 1325 350 Balance -965 -350 Weight 94.5 kg Intake: Oral 360 Output: Urine 1325 350 Other: Voiding Method Indwelling Catheter Indwelling Catheter # Bowel Movements 1 1 - Labs CBC & Chem 7: 06/27/24 07:10 06/27/24 07:10 Labs: Abnormal Lab Results - Last 24 Hours (Table) 06/26/24 06/27/24 06/27/24 Range/Units 11:38 07:10 07:10 WBC 13.2 H (3.8-10.6) k/uL RBC 3.60 L (3.80-5.40) m/uL Hgb 10.8 L (11.4-16.0) gm/dL MCHC 30.5 L (31.0-37.0) g/dL Neutrophils # 11.3 H (1.3-7.7) k/uL Lymphocytes # 0.7 L (1.0-4.8) k/uL Sodium 134 L (137-145) mmol/L Potassium 3.4 L (3.5-5.1) mmol/L Chloride 96 L (98-107) mmol/L Carbon Dioxide 35 H (22-30) mmol/L BUN 29 H (7-17) mg/dL POC Glucose (mg/dL) 125 H (70-110) mg/dL Calcium 8.3 L (8.4-10.2) mg/dL Microbiology - Last 24 Hours (Table) 06/25/24 11:05 Urine Culture - Final Urine,Catheterized
--- NOTE | 2024-06-27 14:24 | P.PN ---
Subjective Progress Note Date: 06/27/24 Principal diagnosis: Reason for follow-up is pneumonia and bacteremia Patient is a 83-year-old female with a past medical history significant for asthma COPD GI bleed musculoskeletal disorder presenting to the hospital for evaluation of increasing shortness of breath patient did have possible culture with MSSA prompted this consultation, did have a CT of the chest abdominal pelvis concerning for left upper right middle lobe consolidation suggestive of pneumonia and large stool burden concerning for large bowel obstruction On today's evaluation that is 06/27/2024, Patient is afebrile this morning patient denies having any chest pain breathing slightly comfortably did have a cough it is currently 4 L current oxygen abdomen pain has decreased intensity repeated have bowel movement. Patient white count is 13.2, creatinine 0.75 Objective - Vital Signs Vital signs: Vital Signs Temp 97.8 F 06/27/24 08:00 Pulse 70 06/27/24 12:00 Resp 19 06/27/24 12:00 BP 145/74 06/27/24 12:00 Pulse Ox 95 06/27/24 12:00 FiO2 Intake & Output 06/26/24 06/27/24 06/27/24 18:59 06:59 18:59 Intake Total 360 240 Output Total 1325 350 950 Balance -965 -350 -248 Weight 94.5 kg Intake: Oral 360 240 Output: Urine 1325 350 950 Other: Voiding Method Indwelling Catheter Indwelling Catheter Indwelling Catheter # Bowel Movements 1 1 1 - Exam GENERAL DESCRIPTION: An elderly female up in the chair in no distress RESPIRATORY SYSTEM: Unlabored breathing , decreased breath sounds at bases HEART: S1 S2 regular rate and rhythm , ABDOMEN: Soft , mild distention and tenderness EXTREMITIES: No edema feet - Labs CBC & Chem 7: 06/27/24 07:10 06/27/24 07:10 Labs: Abnormal Lab Results - Last 24 Hours (Table) 06/27/24 06/27/24 Range/Units 07:10 07:10 WBC 13.2 H (3.8-10.6) k/uL RBC 3.60 L (3.80-5.40) m/uL Hgb 10.8 L (11.4-16.0) gm/dL MCHC 30.5 L (31.0-37.0) g/dL Neutrophils # 11.3 H (1.3-7.7) k/uL Lymphocytes # 0.7 L (1.0-4.8) k/uL Sodium 134 L (137-145) mmol/L Potassium 3.4 L (3.5-5.1) mmol/L Chloride 96 L (98-107) mmol/L Carbon Dioxide 35 H (22-30) mmol/L BUN 29 H (7-17) mg/dL Calcium 8.3 L (8.4-10.2) mg/dL Microbiology - Last 24 Hours (Table) 06/25/24 11:05 Urine Culture - Final Urine,Catheterized Assessment and Plan (1) MSSA bacteremia Current Visit: Yes Status: Acute Code(s): R78.81 - BACTEREMIA; B95.61 - METHICILLIN SUSCEP STAPH INFCT CAUSING DIS CLASSD [id number] SNOMED Code(s): 176582646 (2) Leukocytosis Current Visit: Yes Status: Acute Code(s): D72.829 - ELEVATED WHITE BLOOD CELL COUNT, UNSPECIFIED SNOMED Code(s): 366974267 Plan: 1patient with MSSA bacteremia in this patient presenting to the hospital with i ncreasing shortness of breath and a cough concerning likely for pneumonia to be likely source for this MSSA bacteremia underlying endovascular source cannot be excluded, patient also having significant abdominal pain at a tenderness etiology likely bowel obstruction did not mention any colitis 2-patient did have CT of chest abdominal pelvis concerning for pneumonia and bowel obstruction 3-blood cultures repeat were requested however seem to have been canceled will be ordered again, continue with the cefazolin and Flagyl and monitor clinical course closely Dictation was produced using [employer] dictation software. please excuse any grammatical, word or spelling errors. Time with Patient: Less than 30
--- NOTE | 2024-06-27 15:33 | P.PN ---
Subjective Progress Note Date: 06/27/24 Principal diagnosis: Colonic distention Patient doing better today. Had a very large bowel movement per the nursing staff last night and tomorrow today. Feels less bloated. No nausea currently. Still having mild lower abdominal discomfort although improved. She is quite hungry. Repeat abdominal x-rays today still show some dilated bowel loops. Objective - Vital Signs Vital signs: Vital Signs Temp 97.8 F 06/27/24 08:00 Pulse 70 06/27/24 12:00 Resp 19 06/27/24 12:00 BP 145/74 06/27/24 12:00 Pulse Ox 95 06/27/24 12:00 FiO2 Intake & Output 06/26/24 06/27/24 06/27/24 18:59 06:59 18:59 Intake Total 360 240 Output Total 1325 350 950 Balance -965 -350 -710 Weight 94.5 kg Intake: Oral 360 240 Output: Urine 1325 350 950 Other: Voiding Method Indwelling Catheter Indwelling Catheter Indwelling Catheter # Bowel Movements 1 1 1 - Exam Abdomen: Soft, mild distention, mild diffuse tenderness - Labs CBC & Chem 7: 06/27/24 07:10 06/27/24 07:10 Labs: Abnormal Lab Results - Last 24 Hours (Table) 06/27/24 06/27/24 Range/Units 07:10 07:10 WBC 13.2 H (3.8-10.6) k/uL RBC 3.60 L (3.80-5.40) m/uL Hgb 10.8 L (11.4-16.0) gm/dL MCHC 30.5 L (31.0-37.0) g/dL Neutrophils # 11.3 H (1.3-7.7) k/uL Lymphocytes # 0.7 L (1.0-4.8) k/uL Sodium 134 L (137-145) mmol/L Potassium 3.4 L (3.5-5.1) mmol/L Chloride 96 L (98-107) mmol/L Carbon Dioxide 35 H (22-30) mmol/L BUN 29 H (7-17) mg/dL Calcium 8.3 L (8.4-10.2) mg/dL Microbiology - Last 24 Hours (Table) 06/25/24 11:05 Urine Culture - Final Urine,Catheterized Assessment and Plan (1) Partial obstruction of colon Narrative/Plan: Patient doing better at this time. White blood cell count continues to improve. Begin clear liquid diet. Ambulate. Increase lactulose to twice daily for now. Will follow. Current Visit: Yes Status: Acute Code(s): K56.600 - PARTIAL INTESTINAL OBSTRUCTION, UNSPECIFIED TO CAUSE SNOMED Code(s): 40740636292918584
--- NOTE | 2024-06-27 16:48 | P.PN ---
Subjective Progress Note Date: 06/27/24 On 06/26/2024, the patient is being seen for a follow-up. The patient is currently comfortable on 4 L of oxygen by nasal cannula. The patient has staff aureus septicemia and the blood culture was positive for MSSA. Meanwhile, I reviewed the CAT scan of the chest abdomen and pelvis that was done on 06/24/2024. I am concerned of the patchy pulmonary potential the patient has peripherally in the right upper lobe and the left upper lobe and those infiltrates have some central cavitation. Based on that, the possibility of septic embolism cannot be completely ruled out. A previous echocardiogram that was done on this patient back in 06/12/2024 showed no valvular vegetation and the patient had a preserved LV function with mild impairment in ejection fraction of 45 to 50%. I think it is worthwhile to repeat the blood cultures and repeat echocardiogram to rule out any possibility of infective endocarditis. Meanwhile, the patient continues to have difficulties with bowel obstruction. She is not sure when was the last bowel movement. She thinks it was approximately 5 days ago. She has a pacema ker in place. The cardiac rhythm is normal sinus at this point. She remains on IV cefazolin. He is also on Flagyl 500 mg p.o. 3 times daily and IV Solu-Medrol 40 mg every 12 hours. He remains on DuoNeb nebulized treatments [id number]. General surgery is on the case regarding her bowel obs truction. The patient is a partial obstruction of the colon exacerbated by constipation. She was given lactulose today to enemas. On 06/27/2024, the patient continues to feel better compared to yesterday. Seems to be less short of breath. She has not had a bowel movement and this has also helped her with her overall respiratory status. She feels less distended and less bloated compared to yesterday. Note that she has bilateral staphylococcal pneumonia left more than right. The patient was found to have MSSA sepsis and the patient is currently on IV cefazolin. Echocardiogram was also repeated and based on the limited views, there was no evidence of any endocarditis. Ejection fraction is normal and the patient had repeat blood culture sent and results are still pending for now.Abdominal x-ray was done today for abdominal distention the patient was found to have distention of the large and small bowel throughout the abdomen. The white cell count is currently down to 13.2 from 20.3. Hemoglobin is stable at 10.8 and a platelet count is at 250. Sodium is at 134, potassium is at 3.4, BUN is 29 and a creatinine of 0.7. The patient was given a flutter valve. The patient was also given an incentive spirometer. She remains on Symbicort. She remains on DuoNeb nebulized treatments [id number]. Rest of the medications remain unchanged. She is also on Flagyl 500 mg p.o. 3 times daily. Patient is being seen by general surgery. No nausea. No emesis. Good appetite. She did have a large bowel movement activity yesterday. Objective - Vital Signs Vital signs: Vital Signs Temp 97.8 F 06/27/24 08:00 Pulse 77 06/27/24 09:28 Resp 18 06/27/24 09:28 BP 149/77 06/27/24 08:00 Pulse Ox 94 L 06/27/24 09:16 FiO2 Intake & Output 06/26/24 06/27/24 06/27/24 18:59 06:59 18:59 Intake Total 360 120 Output Total 1325 350 475 Balance -965 -350 -355 Weight 94.5 kg Intake: Oral 360 120 Output: Urine 1325 350 475 Other: Voiding Method Indwelling Catheter Indwelling Catheter Indwelling Catheter # Bowel Movements 1 1 1 - Exam No acute distress, oriented 3. The patient is currently on 4 L of nasal cannula. No audible wheezing. No use of accessory muscles. HEENT examination is grossly unremarkable. Mucous membranes are moist. No oral lesions. Neck supple. Full range of motion. No adenopathy thyromegaly or neck vein distention. Cardiovascular examination reveals regular rhythm rate. S1-S2 normal. No S3 or S4. No discernible murmur noted. Lungs reveal mild scattered rhonchi, at the left lung base. No wheezes. No crackles. Right lung is relatively clear. Abdomen soft bowel sounds are heard. No masses or tenderness. Abdomen is slightly distended. There is no tenderness. Bowel sounds are hypoactive. Extremities are intact. No cyanosis or clubbing. Mild edema is present. Skin is without rash or lesion. Neurologic examination is brief but nonfocal. - Labs CBC & Chem 7: 06/27/24 07:10 06/27/24 07:10 Labs: Abnormal Lab Results - Last 24 Hours (Table) 06/26/24 06/27/24 06/27/24 Range/Units 11:38 07:10 07:10 WBC 13.2 H (3.8-10.6) k/uL RBC 3.60 L (3.80-5.40) m/uL Hgb 10.8 L (11.4-16.0) gm/dL MCHC 30.5 L (31.0-37.0) g/dL Neutrophils # 11.3 H (1.3-7.7) k/uL Lymphocytes # 0.7 L (1.0-4.8) k/uL Sodium 134 L (137-145) mmol/L Potassium 3.4 L (3.5-5.1) mmol/L Chloride 96 L (98-107) mmol/L Carbon Dioxide 35 H (22-30) mmol/L BUN 29 H (7-17) mg/dL POC Glucose (mg/dL) 125 H (70-110) mg/dL Calcium 8.3 L (8.4-10.2) mg/dL Microbiology - Last 24 Hours (Table) 06/25/24 11:05 Urine Culture - Final Urine,Catheterized Assessment and Plan Plan: Acute on chronic hypoxemic respiratory failure secondary to an acute exacerbation of systolic congestive heart failure. the patient is currently on 4 L of oxygen by nasal cannula. CAT scan of the chest was noted and the patient has patchy peripheral pulmonary opacities left upper lobe and the right upper lobe with some central cavitation. Rule out septic emboli. The patient also has lower lobe consolidation bilaterally. Staph aureus septicemia, still under investigation the patient remains on IV cefazolin. This is an MSSA infection. 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 Rule out endovascular infection and the patient has a pacemaker in place. Repeat blood cultures still pending for now. Meanwhile, the patient is clinically and hemodynamically stable. White cell count is improving. Leukocytosis secondary to bacteremia with presumptive Staph aureus. The white cell count is improving and it was as high as 48,000 currently down to 20 and furthermore, the white cell count dropped down to 13. Abdominal pain secondary to suspected colonic ileus/obstruction. There is a partial small bowel obstruction. The patient was able to have a large bowel movement yesterday and the patient is feeling less distended and less bloated compared to yesterday. Overall respiratory status is also improved. Hyponatremia, improving. Hyperkalemia, improved. Transaminitis, improving. Recent hospitalization from June 10 to June 20, 2024 for RSV infection, COPD exacerbation, right lower lobe pneumonia. Acute on chronic pain secondary to degenerative arthritis requiring pain clinic intervention. History of complicated diverticulitis requiring colectomy, colostomy and subsequent reversal. Complete heart block requiring permanent pacemaker implantation. Multiple orthopedic surgeries due to degenerative arthritis. History of skin cancer, removed. History of migraines. Hypothyroidism status post partial thyroidectomy. Poor overall functional performance based on the above-mentioned multiple comorbidities. Plan: Keep the patient on 4 L of oxygen by nasal cannula Continue DuoNeb updrafts Discontinue IV Solu-Medrol Continue IV cefazolin Repeat blood cultures are still pending Repeat limited echocardiogram showed no evidence of any endocarditis Patient had a bowel movement Feels better ID is on the case General Surgery is on the case White cell count is improving No hypotension Soapsuds enemas and the patient was given lactulose We will continue to follow. Time with Patient: Greater than 30
--- NOTE | 2024-06-27 17:53 | P.PN ---
Subjective Progress Note Date: 06/27/24 This is an 83 year old female with medical history of asthma, COPD, permanent pacemaker, hypertension, hyperlipidemia, GI bleed, recent admission for RSV. Patient was discharged home on Wednesday from this hospital she was treated during that stay for acute RSV, COPD exacerbation and pneumonia. She had been recommended for subacute rehab although patient and family had opted for return home on discharge. Patient was discharged on 3L of oxygen which has has been wearing, since arrival home she has been increasingly short of breath, having continued cough and noted to have significant lower extremity edema. Because of the edema patient was unable to ambulate. She has been taking oral lasix at home without improvement in her symptoms. Patient was found to be hypoxic with saturations in the 80s and brought to the hospital for further evaluation. Patient noted to have significant abdominal distention and states she has not had a good sized bowel movement since Wednesday. Now patient returns with chest xray revealing cardiomegaly with small left pleural effusion and left basilar acute infiltrate and or atelectasis. proBNP was elevated at 3680. Echocardiogram completed on June 13 during prior admission reveals an EF of 45- 50%.Patient had white blood cell count of 48. Sodium of 130, potassium 5.5, elevation of LFTs, procalcitonin level of 16.40. Viral panel is negative for influenza, RSV and covid. Patient was started empirically on IV ceftriaxone and IV solumedrol. Cultures were taken. Pulmonology and cardiology consulted. 06/26/2024 Patient is evaluated in follow-up on the medical floor. She is complaining of less shortness of breath. She remains on oxygen via nasal cannula at 4 L with saturations of 95%. Lungs at this point are essentially diminished with no wheezing or crackles noted. She has been transition to oral Lasix and appears euvolemic at this time. Patient's main complaint is her abdominal distention and she has been unable to have a bowel movement for over a week now. She received multiple enemas a dose of lactulose and had a small smear but no significant bowel movement. She is adamant that she does not want surgery as she does not want a colostomy. Dr. Hutton following this patient closely. Labs today reveal a white blood cell count of 20.3, hemoglobin 9.8, sodium 132, BUN of 39 creatinine of 0.79. Blood glucose remained stable in the 120s. 06/27/2024 Patient evaluated today in follow up on the medical floor. Patient now having multiple bowel movements. Abdominal xray this AM reveals similar distention throughout the small and large bowel. Her abdomen is less distended and having increased bowel sounds. Lungs are diminished. She continues to have a congested cough. Repeat blood culture negative so far. White blood cell count 13.2, hgb 1 0.8, sodium 134, potassium 3.4, BUN 29, creatinine 0.75. Limited echocardiogram shows EF 55%. REVIEW OF SYSTEMS: CONSTITUTIONAL: No fever, Reports fatigue HEENT: No recent visual problems or hearing problems. Denied any sore throat. CARDIOVASCULAR: No chest pain, orthopnea, PND, no palpitations, no syncope. PULMONARY: Reports shortness of breath and cough, no hemoptysis. GASTROINTESTINAL: No diarrhea, no nausea, no vomiting, no abdominal pain. Now having BMs NEUROLOGICAL: No headaches, no weakness, no numbness. PHYSICAL EXAMINATION: GENERAL: The patient is alert and oriented x3, not in any acute distress. Well developed, well nourished. on 4L of oxygen. HEENT: Pupils are round and equally reacting to light. EOMI. No scleral icterus. No conjunctival pallor. Normocephalic, atraumatic. No pharyngeal erythema. No thyromegaly. CARDIOVASCULAR: S1 and S2 present. No murmurs, rubs, or gallops. PULMONARY: Chest is clear to auscultation, no wheezing or crackles. ABDOMEN: Soft, nontender, distended hypo-active bowel sounds. No palpable organomegaly. MUSCULOSKELETAL: No joint swelling or deformity. EXTREMITIES: No cyanosis, clubbing, or pedal edema. Mild peripheral edema NEUROLOGICAL: Gross neurological examination did not reveal any focal deficits. Generalized weakness SKIN: No rashes. Assessment and Plan Abdominal distention with concern for ileus vs. SBO Acute on chronic hypoxemic respiratory failure secondary to acute exacerbation of systolic CHF Staph aureus bacteremia Leukocytosis possibly from recent steroid injection to shoulder Recent RSV infection requiring home oxygen on discharge Volume overload likely from fluids received during prior hospital stay Transaminitis likely from vascular congestion Hypervolemic hyponatremia Hyperkalemia Urinary retention requiring indwelling medina catheter Hypertension Hyperlipidemia Complete heart block and permanent pacemaker Asthma/COPD Hx of diverticulitis with colostomy and reversal Hx GI bleed GI prophylaxis DVT prophylaxis Full Code Plan Of antibiotics in the form of IV cefazolin and oral metronidazole Blood culture was repeated yesterday and need to document clearance prior to discharge ID following cultures closely Diet upgraded to NPO Continue lactulose twice daily Indweling medina catheter has been placed Losartan remains on hold Patient has been transition to oral Lasix and appears euvolemic at this time Continue oxygen support Cardiology, pulmonology consultation Repeat BMP/CBC in the AM PT/OT consultation The impression and plan of care has been dictated by Anh Moore Nurse Pr actitioner as directed. Dr. Faheem MD I have performed a history and physical examination and medical decision making of this patient, discussed the same with the dictator, and agree with the dicta tors assessment and plan as written, documented as a scribe. Based on total visit time, I have performed more than 50% of this visit. Objective - Vital Signs Vital signs: Vital Signs Temp 98.1 F 06/27/24 16:00 Pulse 96 06/27/24 16:00 Resp 17 06/27/24 16:00 BP 113/72 06/27/24 16:00 Pulse Ox 95 06/27/24 16:00 FiO2 Intake & Output 06/26/24 06/27/24 06/27/24 18:59 06:59 18:59 Intake Total 360 480 Output Total 1171 432 7404 Balance -965 -350 -1170 Weight 94.5 kg Intake: Oral 360 480 Output: Urine 4983 394 3360 Other: Voiding Method Indwelling Catheter Indwelling Catheter Indwelling Catheter # Bowel Movements 1 1 1 - Labs CBC & Chem 7: 06/27/24 07:10 06/27/24 07:10 Labs: Abnormal Lab Results - Last 24 Hours (Table) 06/27/24 06/27/24 Range/Units 07:10 07:10 WBC 13.2 H (3.8-10.6) k/uL RBC 3.60 L (3.80-5.40) m/uL Hgb 10.8 L (11.4-16.0) gm/dL MCHC 30.5 L (31.0-37.0) g/dL Neutrophils # 11.3 H (1.3-7.7) k/uL Lymphocytes # 0.7 L (1.0-4.8) k/uL Sodium 134 L (137-145) mmol/L Potassium 3.4 L (3.5-5.1) mmol/L Chloride 96 L (98-107) mmol/L Carbon Dioxide 35 H (22-30) mmol/L BUN 29 H (7-17) mg/dL Calcium 8.3 L (8.4-10.2) mg/dL Microbiology - Last 24 Hours (Table) 06/26/24 13:10 Blood Culture - Preliminary Blood 06/25/24 11:05 Urine Culture - Final Urine,Catheterized Assessment and Plan Time with Patient: Less than 30
[2024-06-27] MEDS: GABAPENTIN 300 MG CAP PO SCH (20:46)
[2024-06-27] MEDS: LACTULOSE 20 GM/30 ML CUP PO SCH (20:57)
[2024-06-28 07:01] LABS: African American GFR (CKD) >90 (>60 ml/min/1.73 sqM); Anion Gap 2 mmol/L; Blood Urea Nitrogen 16 mg/dL (7-17); Calcium 8.1 mg/dL (8.4-10.2); Carbon Dioxide 33 mmol/L (22-30); Chloride 97 mmol/L (98-107); Glucose 81 mg/dL (74-99); Non-African American GFR(CKD) 90 (>60 ml/min/1.73 sqM); Potassium 3.3 mmol/L (3.5-5.1); Sodium 132 mmol/L (137-145)
[2024-06-28 07:17] LABS: Basophils % (A) 0 %; Eosinophils # (A) 0.2 k/uL (0-0.7); Eosinophils % (A) 2 %; HCT 33.1 % (34.0-46.0); HGB 10.3 gm/dL (11.4-16.0); Lymphocytes # (A) 0.7 k/uL (1.0-4.8); Lymphocytes % (A) 7 %; MCH 30.6 pg (25.0-35.0); MCHC 31.2 g/dL (31.0-37.0); Mean Platelet Volume 8.5; Monocytes # (A) 0.7 k/uL (0-1.0); Monocytes % (A) 7 %; Neutrophils # (A) 8.6 k/uL (1.3-7.7); Neutrophils % (A) 84 %; Platelet Count 261 k/uL (150-450); RBC 3.38 m/uL (3.80-5.40); RDW 14.6 % (11.5-15.5); WBC 10.2 k/uL (3.8-10.6)
[2024-06-28] MEDS: KETOROLAC 15 MG/ML 1 ML VIAL IVP PRN (09:54)
[2024-06-28] MEDS ORDERED: KETOROLAC 15 MG/ML 1 ML VIAL IVP SCH (12:00)
[2024-06-28] MEDS: diphenhydrAMINE 50 MG/ML 1 ML VIAL IVP STA (12:03)
--- NOTE | 2024-06-28 13:12 | P.PN ---
Subjective Progress Note Date: 06/28/24 SURGICAL PROGRESS NOTE CHIEF COMPLAINT: Partial obstruction colon HISTORY OF PRESENT ILLNESS: Patient does report having loose stools about 5 times yesterday and a bowel movement this morning she is having flatus. However, she complains of abdominal bloating and nausea. She is also complaining of pain in her back. She refused the lactulose last night and this morning. Afebrile. WBC is down from 13.2-10.2 potassium is 3.3 and receiving supplement. PHYSICAL EXAM: VITAL SIGNS: Reviewed. GENERAL: Well-developed in no acute distress. ABDOMEN: Soft. Mildly distended. Nontender. NEUROLOGIC: Alert and oriented. Cranial nerves II through XII grossly intact. ASSESSMENT: 1. Partial obstruction of the colon 2. Hypokalemia PLAN: -Patient with nausea and abdominal bloating. Will proceed with barium enema with Gastrografin -Benadryl given before imaging due to iodine allergy with Gastrografin -Continue potassium supplement -Educated patient slow down or stop taking in liquids if she continues to have the nausea and abdominal bloating Physician [employer] note has been reviewed by physician. Signing provider agrees with the documented findings, assessment, and plan of care. I have personally seen and examined the patient, reviewed the STAFF ANTISUBMARINE OFFICER /PAs history, exam and MDM and agree with the assessment and plan as written. Based on total visit time, I have performed more than 50% of the visit. As above: Patient was having complaints of increased bloating and nausea today. We decided to follow through on the Gastrografin enema that was ordered. Study was reviewed and shows some mild narrowing through the sigmoid colon but no definitive obstruction. Continue liquid diet for today. Will reassess tomorrow. Objective - Vital Signs Vital signs: Vital Signs Temp 97.8 F 06/28/24 08:10 Pulse 76 06/28/24 09:42 Resp 19 06/28/24 08:10 BP 121/70 06/28/24 08:10 Pulse Ox 94 L 06/28/24 08:10 FiO2 Intake & Output 06/27/24 06/28/24 06/28/24 18:59 06:59 18:59 Intake Total 480 100 450 Output Total 5030 700 825 Balance -1170 -600 -375 Weight 95 kg Intake: Intake, IV Titration 100 Amount ceFAZolin 2 gm In Sodium 100 Chloride 0.9% 50 ml @ 100 mls/hr IVPB Q8HR [facility] Rx# :[id number] Oral 480 450 Output: Urine 1650 700 825 Other: Voiding Method Indwelling Catheter Indwelling Catheter # Voids 1 # Bowel Movements 1 1 - Labs CBC & Chem 7: 06/28/24 06:08 06/28/24 06:08 Labs: Abnormal Lab Results - Last 24 Hours (Table) 06/28/24 06/28/24 Range/Units 06:08 06:08 RBC 3.38 L (3.80-5.40) m/uL Hgb 10.3 L (11.4-16.0) gm/dL Hct 33.1 L (34.0-46.0) % Neutrophils # 8.6 H (1.3-7.7) k/uL Lymphocytes # 0.7 L (1.0-4.8) k/uL Sodium 132 L (137-145) mmol/L Potassium 3.3 L (3.5-5.1) mmol/L Chloride 97 L (98-107) mmol/L Carbon Dioxide 33 H (22-30) mmol/L Creatinine 0.50 L (0.52-1.04) mg/dL Calcium 8.1 L (8.4-10.2) mg/dL Microbiology - Last 24 Hours (Table) 06/26/24 13:10 Blood Culture - Preliminary Blood
--- NOTE | 2024-06-28 13:39 | FL ---
EXAMINATION TYPE: FL barium enema DATE OF EXAM: 06/28/2024 COMPARISON: CLINICAL INDICATION: Female, 83 years old with history of Gastrografin, obstruction; [facility], TECHNIQUE: A Gastrografin contrast barium enema study is performed. A total of 2.59 minutes of fluo roscopic time was utilized during procedure and 35 images obtained. Total dose area product (DAP) in uGy*m?, mGy*cm? (or similar): . FINDINGS: Similar distention of what is thought to be predominantly large bowel and small bowel throughout the abdomen. Severe sigmoid diverticulosis involving the sigmoid colon with circular wall hypertrophy and luminal narrowing which may result in a degree of proximal distention. There are a few scattered diverticula throughout the remainder of the colon. No definite fluoroscopic evidence to suggest active diverticul itis although CT is much more sensitive and specific. No definite evidence for annular constricting l esion or fungating mass. Mucosal fold pattern appears within normal limits. The appendix and terminal ileum are not clearly opacified at this time. IMPRESSION: Severe sigmoid diverticulosis involving the sigmoid colon with circular wall hypertrophy and mild luminal narrowing which may result in a degree of proximal distention. No definite fluorosc opic evidence to suggest acute diverticulitis. CT is recommended given increased sensitivity and spec ificity. [facility], , 06/28/2024 1:37 PM
--- NOTE | 2024-06-28 15:22 | P.PN ---
Subjective Progress Note Date: 06/28/24 This is an 83 year old female with medical history of asthma, COPD, permanent pacemaker, hypertension, hyperlipidemia, GI bleed, recent admission for RSV. Patient was discharged home on Wednesday from this hospital she was treated during that stay for acute RSV, COPD exacerbation and pneumonia. She had been recommended for subacute rehab although patient and family had opted for return home on discharge. Patient was discharged on 3L of oxygen which has has been wearing, since arrival home she has been increasingly short of breath, having continued cough and noted to have significant lower extremity edema. Because of the edema patient was unable to ambulate. She has been taking oral lasix at home without improvement in her symptoms. Patient was found to be hypoxic with saturations in the 80s and brought to the hospital for further evaluation. Patient noted to have significant abdominal distention and states she has not had a good sized bowel movement since Wednesday. Now patient returns with chest xray revealing cardiomegaly with small left pleural effusion and left basilar acute infiltrate and or atelectasis. proBNP was elevated at 3680. Echocardiogram completed on June 13 during prior admission reveals an EF of 45- 50%.Patient had white blood cell count of 48. Sodium of 130, potassium 5.5, elevation of LFTs, procalcitonin level of 16.40. Viral panel is negative for influenza, RSV and covid. Patient was started empirically on IV ceftriaxone and IV solumedrol. Cultures were taken. Pulmonology and cardiology consulted. 06/26/2024 Patient is evaluated in follow-up on the medical floor. She is complaining of less shortness of breath. She remains on oxygen via nasal cannula at 4 L with saturations of 95%. Lungs at this point are essentially diminished with no wheezing or crackles noted. She has been transition to oral Lasix and appears euvolemic at this time. Patient's main complaint is her abdominal distention and she has been unable to have a bowel movement for over a week now. She received multiple enemas a dose of lactulose and had a small smear but no significant bowel movement. She is adamant that she does not want surgery as she does not want a colostomy. Dr. Hutton following this patient closely. Labs today reveal a white blood cell count of 20.3, hemoglobin 9.8, sodium 132, BUN of 39 creatinine of 0.79. Blood glucose remained stable in the 120s. 06/27/2024 Patient evaluated today in follow up on the medical floor. Patient now having multiple bowel movements. Abdominal xray this AM reveals similar distention throughout the small and large bowel. Her abdomen is less distended and having increased bowel sounds. Lungs are diminished. She continues to have a congested cough. Repeat blood culture negative so far. White blood cell count 13.2, hgb 1 0.8, sodium 134, potassium 3.4, BUN 29, creatinine 0.75. Limited echocardiogram shows EF 55%. 06/28/2024 Patient is evaluated in follow-up in the medical floor. Patient has had multiple bowel movements. She underwent fluoroscopy enema today findings of severe sigmoid diverticulosis involving the sigmoid colon with circular wall hypertrophy and mild luminal narrowing which may result a degree of proximal distention no definite fluoroscopic evidence to suggest acute diverticulitis. Patient is not having any more abdominal distention. Her white blood cell count is normalized to 10.2, hemoglobin 10.3, sodium of 132, potassium 3.3, BUN of 16 creatinine 0.50. She remains on IV cefazolin and oral Flagyl. She is on Mycostatin for oral thrush. She continues on oxygen via nasal cannula on 4 L. REVIEW OF SYSTEMS: CONSTITUTIONAL: No fever, Reports fatigue HEENT: No recent visual problems or hearing problems. Denied any sore throat. CARDIOVASCULAR: No chest pain, orthopnea, PND, no palpitations, no syncope. PULMONARY: Reports shortness of breath and cough, no hemoptysis. GASTROINTESTINAL: No diarrhea, no nausea, no vomiting, no abdominal pain. Now having BMs NEUROLOGICAL: No headaches, no weakness, no numbness. PHYSICAL EXAMINATION: GENERAL: The patient is alert and oriented x3, not in any acute distress. Well developed, well nourished. on 4L of oxygen. HEENT: Pupils are round and equally reacting to light. EOMI. No scleral icterus. No conjunctival pallor. Normocephalic, atraumatic. No pharyngeal erythema. No thyromegaly. CARDIOVASCULAR: S1 and S2 present. No murmurs, rubs, or gallops. PULMONARY: Chest is clear to auscultation, no wheezing or crackles. ABDOMEN: Soft, nontender, distended normal active bowel sounds. No palpable organomegaly. MUSCULOSKELETAL: No joint swelling or deformity. EXTREMITIES: No cyanosis, clubbing, or pedal edema. Mild peripheral edema NEUROLOGICAL: Gross neurological examination did not reveal any focal deficits. Generalized weakness SKIN: No rashes. Assessment and Plan Abdominal distention with concern for ileus vs. SBO, resolved Acute on chronic hypoxemic respiratory failure secondary to acute exacerbation of systolic CHF Staph aureus bacteremia Leukocytosis possibly from recent steroid injection to shoulder Recent RSV infection requiring home oxygen on discharge Volume overload likely from fluids received during prior hospital stay Transaminitis likely from vascular congestion Hypervolemic hyponatremia Hyperkalemia Urinary retention requiring indwelling medina catheter Hypertension Hyperlipidemia Complete heart block and permanent pacemaker Asthma/COPD Hx of diverticulitis with colostomy and reversal Hx GI bleed GI prophylaxis DVT prophylaxis Full Code Plan Continue antibiotics in the form of IV cefazolin and oral metronidazole Blood culture was repeated yesterday and need to document clearance prior to discharge ID following cultures closely repeat blood cultures negative so far Patient remains on clear liquid diet Continue lactulose twice daily Indweling medina catheter has been placed Losartan remains on hold Patient has been transition to oral Lasix and appears euvolemic at this time Continue oxygen support Cardiology, pulmonology consultation Repeat BMP/CBC in the AM PT/OT consultation Downgrade to medical floor and possible discharge home in the next 24 hours The impression and plan of care has been dictated by Anh Moore, Nurse Practitioner as directed. Dr. Faheem MD I have performed a history and physical examination and medical decision making of this patient, discussed the same with the dictator, and agree with the dictators assessment and plan as written, documented as a scribe. Based on total visit time, I have performed more than 50% of this visit. Objective - Vital Signs Vital signs: Vital Signs Temp 97.8 F 06/28/24 08:10 Pulse 76 06/28/24 14:00 Resp 19 06/28/24 14:00 BP 121/70 06/28/24 08:10 Pulse Ox 94 L 06/28/24 08:10 FiO2 Intake & Output 06/27/24 06/28/24 06/28/24 18:59 06:59 18:59 Intake Total 480 100 450 Output Total 3601 425 4435 Balance -1177 -600 -475 Weight 95 kg Intake: Intake, IV Titration 100 Amount ceFAZolin 2 gm In Sodium 100 Chloride 0.9% 50 ml @ 100 mls/hr IVPB Q8HR [facility] Rx# :[id number] Oral 480 450 Output: Urine 0486 689 9060 Other: Voiding Method Indwelling Catheter Indwelling Catheter Indwelling Catheter # Voids 1 # Bowel Movements 1 1 2 - Labs CBC & Chem 7: 06/28/24 06:08 06/28/24 06:08 Labs: Abnormal Lab Results - Last 24 Hours (Table) 06/28/24 06/28/24 Range/Units 06:08 06:08 RBC 3.38 L (3.80-5.40) m/uL Hgb 10.3 L (11.4-16.0) gm/dL Hct 33.1 L (34.0-46.0) % Neutrophils # 8.6 H (1.3-7.7) k/uL Lymphocytes # 0.7 L (1.0-4.8) k/uL Sodium 132 L (137-145) mmol/L Potassium 3.3 L (3.5-5.1) mmol/L Chloride 97 L (98-107) mmol/L Carbon Dioxide 33 H (22-30) mmol/L Creatinine 0.50 L (0.52-1.04) mg/dL Calcium 8.1 L (8.4-10.2) mg/dL Microbiology - Last 24 Hours (Table) 06/26/24 13:10 Blood Culture - Preliminary Blood Assessment and Plan Time with Patient: Less than 30
[2024-06-28] MEDS: POTASSIUM CHLORIDE ER 20 MEQ TAB.ER PO SCH ×2 (17:04→17:08)
--- NOTE | 2024-06-28 18:30 | P.PN ---
Subjective Progress Note Date: 06/28/24 On 06/26/2024, the patient is being seen for a follow-up. The patient is currently comfortable on 4 L of oxygen by nasal cannula. The patient has staff aureus septicemia and the blood culture was positive for MSSA. Meanwhile, I reviewed the CAT scan of the chest abdomen and pelvis that was done on 06/24/2024. I am concerned of the patchy pulmonary potential the patient has peripherally in the right upper lobe and the left upper lobe and those infiltrates have some central cavitation. Based on that, the possibility of septic embolism cannot be completely ruled out. A previous echocardiogram that was done on this patient back in 06/12/2024 showed no valvular vegetation and the patient had a preserved LV function with mild impairment in ejection fraction of 45 to 50%. I think it is worthwhile to repeat the blood cultures and repeat echocardiogram to rule out any possibility of infective endocarditis. Meanwhile, the patient continues to have difficulties with bowel obstruction. She is not sure when was the last bowel movement. She thinks it was approximately 5 days ago. She has a pacema ker in place. The cardiac rhythm is normal sinus at this point. She remains on IV cefazolin. He is also on Flagyl 500 mg p.o. 3 times daily and IV Solu-Medrol 40 mg every 12 hours. He remains on DuoNeb nebulized treatments [id number]. General surgery is on the case regarding her bowel obs truction. The patient is a partial obstruction of the colon exacerbated by constipation. She was given lactulose today to enemas. On 06/27/2024, the patient continues to feel better compared to yesterday. Seems to be less short of breath. She has not had a bowel movement and this has also helped her with her overall respiratory status. She feels less distended and less bloated compared to yesterday. Note that she has bilateral staphylococcal pneumonia left more than right. The patient was found to have MSSA sepsis and the patient is currently on IV cefazolin. Echocardiogram was also repeated and based on the limited views, there was no evidence of any endocarditis. Ejection fraction is normal and the patient had repeat blood culture sent and results are still pending for now.Abdominal x-ray was done today for abdominal distention the patient was found to have distention of the large and small bowel throughout the abdomen. The white cell count is currently down to 13.2 from 20.3. Hemoglobin is stable at 10.8 and a platelet count is at 250. Sodium is at 134, potassium is at 3.4, BUN is 29 and a creatinine of 0.7. The patient was given a flutter valve. The patient was also given an incentive spirometer. She remains on Symbicort. She remains on DuoNeb nebulized treatments [id number]. Rest of the medications remain unchanged. She is also on Flagyl 500 mg p.o. 3 times daily. Patient is being seen by general surgery. No nausea. No emesis. Good appetite. She did have a large bowel movement activity yesterday. On 06/28/2024, the patient is being seen for a follow-up. Overall condition is stable. Denies having any specific complaints. She underwent a barium enema upon recommendations by general surgery and the patient was found to have sigmoid diverticulosis and cervical wall hypertrophy with mild luminal narrowing. No evidence of diverticulitis. The patient is stooling for now. Abdomen is less distended. The white cell count is at 10.2 with a hemoglobin of 10.3 and a platelet count of 261. Sodium is at 132, BUN 16 and a creatinine of 0.5. Repeat blood culture has been negative and the patient had an echocardiogram, limited view that showed no evidence of any endocarditis. Otherwise, the patient denies having any specific complaints. The patient remains on 4 L of oxygen by nasal cannula with a pulse ox of 94%. The patient remains on IV cefazolin. Rest of medications are unchanged. Objective - Vital Signs Vital signs: Vital Signs Temp 97.8 F 06/28/24 08:10 Pulse 76 06/28/24 09:42 Resp 19 06/28/24 08:10 BP 121/70 06/28/24 08:10 Pulse Ox 94 L 06/28/24 08:10 FiO2 Intake & Output 06/27/24 06/28/24 06/28/24 18:59 06:59 18:59 Intake Total 480 100 450 Output Total 1650 700 Balance -1170 -600 450 Weight 95 kg Intake: Intake, IV Titration 100 Amount ceFAZolin 2 gm In Sodium 100 Chloride 0.9% 50 ml @ 100 mls/hr IVPB Q[facility]HR [facility] Rx# :[id number] Oral 480 450 Output: Urine 1650 700 Other: Voiding Method Indwelling Catheter Indwelling Catheter # Voids 1 # Bowel Movements 1 1 - Exam No acute distress, oriented 3. The patient is currently on 4 L of nasal cannula. No audible wheezing. No use of accessory muscles. HEENT examination is grossly unremarkable. Mucous membranes are moist. No oral lesions. Neck supple. Full range of motion. No adenopathy thyromegaly or neck vein distention. Cardiovascular examination reveals regular rhythm rate. S1-S2 normal. No S3 or S4. No discernible murmur noted. Lungs reveal mild scattered rhonchi, at the left lung base. No wheezes. No crackles. Right lung is relatively clear. Abdomen soft bowel sounds are heard. No masses or tenderness. Abdomen is slightly distended. There is no tenderness. Bowel sounds are hypoactive. Extremities are intact. No cyanosis or clubbing. Mild edema is present. Skin is without rash or lesion. Neurologic examination is brief but nonfocal. - Labs CBC & Chem 7: 06/28/24 06:08 06/28/24 06:08 Labs: Abnormal Lab Results - Last 24 Hours (Table) 06/28/24 06/28/24 Range/Units 06:08 06:08 RBC 3.38 L (3.80-5.40) m/uL Hgb 10.3 L (11.4-16.0) gm/dL Hct 33.1 L (34.0-46.0) % Neutrophils # 8.6 H (1.3-7.7) k/uL Lymphocytes # 0.7 L (1.0-4.8) k/uL Sodium 132 L (137-145) mmol/L Potassium 3.3 L (3.5-5.1) mmol/L Chloride 97 L (98-107) mmol/L Carbon Dioxide 33 H (22-30) mmol/L Creatinine 0.50 L (0.52-1.04) mg/dL Calcium 8.1 L (8.4-10.2) mg/dL Microbiology - Last 24 Hours (Table) 06/26/24 13:10 Blood Culture - Preliminary Blood Assessment and Plan Plan: Acute on chronic hypoxemic respiratory failure secondary to an acute exacerbation of systolic congestive heart failure. the patient is currently on 4 L of oxygen by nasal cannula. CAT scan of the chest was noted and the patient has patchy peripheral pulmonary opacities left upper lobe and the right upper lobe with some central cavitation. The patient also has lower lobe consolidation bilaterally. Staph aureus septicemia, still under investigation the patient remains on IV ce fazolin. This is an MSSA infection. 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 Rule out endovascular infection and the patient has a pacemaker in place. Repeat blood cultures still pending for now. Meanwhile, the patient is clinically and hemodynamically stable. White cell count is improving. Leukocytosis secondary to bacteremia with presumptive Staph aureus. The white cell count is improving and it was as high as 48,000 currently down to 20 and furthermore, the white cell count dropped down to 10.2 Abdominal pain secondary to suspected colonic ileus/obstruction. There is a partial small bowel obstruction. The patient was able to have a large bowel movement yesterday and the patient is feeling less distended and less bloated compared to yesterday. Overall respiratory status is also improved. Ba enema was completed and it is consistent with diverticulosis Hyponatremia, improving. Hyperkalemia, improved. Transaminitis, improving. Recent hospitalization from June 10 to June 20, 2024 for RSV infection, COPD exacerbation, right lower lobe pneumonia. Acute on chronic pain secondary to degenerative arthritis requiring pain clinic intervention. History of complicated diverticulitis requiring colectomy, colostomy and subsequent reversal. Complete heart block requiring permanent pacemaker implantation. Multiple orthopedic surgeries due to degenerative arthritis. History of skin cancer, removed. History of migraines. Hypothyroidism status post partial thyroidectomy. Poor overall functional performance based on the above-mentioned multiple comorbidities. Plan: Keep the patient on 4 L of oxygen by nasal cannula Continue DuoNeb updrafts Continue IV cefazolin Repeat blood cultures are negative Repeat limited echocardiogram showed no evidence of any endocarditis Patient had a bowel movement Feels better ID is on the case General Surgery is on the case White cell count is improving No hypotension Soapsuds enemas and the patient was given lactulose We will continue to follow. Time with Patient: Greater than 30
[2024-06-29 11:38] LABS: African American GFR (CKD) >90 (>60 ml/min/1.73 sqM); Anion Gap 3 mmol/L; Blood Urea Nitrogen 9 mg/dL (7-17); Calcium 8.3 mg/dL (8.4-10.2); Carbon Dioxide 38 mmol/L (22-30); Chloride 94 mmol/L (98-107); Glucose 92 mg/dL (74-99); Non-African American GFR(CKD) 90 (>60 ml/min/1.73 sqM); Potassium 3.6 mmol/L (3.5-5.1); Sodium 135 mmol/L (137-145)
--- NOTE | 2024-06-29 13:00 | P.PN ---
Subjective Progress Note Date: 06/29/24 SURGICAL PROGRESS NOTE CHIEF COMPLAINT: Partial obstruction colon HISTORY OF PRESENT ILLNESS: Patient complains of nausea after eating Jell-O. She has had bowel movements. Barium enema reported severe sigmoid diverticulosis involving the sigmoid colon with circular wall hypertrophy and mild luminal narrowing which may result in degree of proximal distention. Continues to complain of back pain. Afebrile. Potassium better at 3.6 PHYSICAL EXAM: VITAL SIGNS: Reviewed. GENERAL: Well-developed in no acute distress. ABDOMEN: Soft. Mildly distended. Nontender. NEUROLOGIC: Alert and oriented. Cranial nerves II through XII grossly intact. ASSESSMENT: 1. Partial obstruction of the colon. Barium enema with no evidence of bowel obstruction. Mild narrowing sigmoid colon. PLAN: -Continue clear liquid diet -Encourage patient increase activity level -Ensure added for protein supplement Physician Histologist Technologist note has been reviewed by physician. Signing provider agrees with the documented findings, assessment, and plan of care. I have personally seen and examined the patient, reviewed the WIRED MUSIC OPERATOR /PAs history, exam and MDM and agree with the assessment and plan as written. Based on total visit time, I have performed more than 50% of the visit. As above: Patient doing better today. Still having some intermittent nausea. No pain currently. Yesterday's films showed no obstruction. Continue slowly advancing diet as tolerated. Ambulate. Objective - Vital Signs Vital signs: Vital Signs Temp 98.4 F 06/29/24 07:17 Pulse 80 06/29/24 10:08 Resp 22 06/29/24 07:17 BP 147/66 06/29/24 07:17 Pulse Ox 96 06/29/24 07:17 FiO2 Intake & Output 06/28/24 06/29/24 06/29/24 18:59 06:59 18:59 Intake Total 450 Output Total 1425 750 Balance -975 -750 Intake: Oral 450 Output: Urine 1425 750 Other: Voiding Method Indwelling Catheter Indwelling Catheter Indwelling Catheter # Bowel Movements 1 1 - Labs CBC & Chem 7: 06/28/24 06:08 06/29/24 10:26 Labs: Abnormal Lab Results - Last 24 Hours (Table) 06/29/24 Range/Units 10:26 Sodium 135 L (137-145) mmol/L Chloride 94 L (98-107) mmol/L Carbon Dioxide 38 H (22-30) mmol/L Creatinine 0.51 L (0.52-1.04) mg/dL Calcium 8.3 L (8.4-10.2) mg/dL Microbiology - Last 24 Hours (Table) 06/26/24 13:10 Blood Culture - Preliminary Blood
--- NOTE | 2024-06-29 13:33 | P.PN ---
Subjective Progress Note Date: 06/29/24 This is an 83 year old female with medical history of asthma, COPD, permanent pacemaker, hypertension, hyperlipidemia, GI bleed, recent admission for RSV. Patient was discharged home on Wednesday from this hospital she was treated during that stay for acute RSV, COPD exacerbation and pneumonia. She had been recommended for subacute rehab although patient and family had opted for return home on discharge. Patient was discharged on 3L of oxygen which has has been wearing, since arrival home she has been increasingly short of breath, having continued cough and noted to have significant lower extremity edema. Because of the edema patient was unable to ambulate. She has been taking oral lasix at home without improvement in her symptoms. Patient was found to be hypoxic with saturations in the 80s and brought to the hospital for further evaluation. Patient noted to have significant abdominal distention and states she has not had a good sized bowel movement since Wednesday. Now patient returns with chest xray revealing cardiomegaly with small left pleural effusion and left basilar acute infiltrate and or atelectasis. proBNP was elevated at 3680. Echocardiogram completed on June 13 during prior admission reveals an EF of 45- 50%.Patient had white blood cell count of 48. Sodium of 130, potassium 5.5, elevation of LFTs, procalcitonin level of 16.40. Viral panel is negative for influenza, RSV and covid. Patient was started empirically on IV ceftriaxone and IV solumedrol. Cultures were taken. Pulmonology and cardiology consulted. 06/26/2024 Patient is evaluated in follow-up on the medical floor. She is complaining of less shortness of breath. She remains on oxygen via nasal cannula at 4 L with saturations of 95%. Lungs at this point are essentially diminished with no wheezing or crackles noted. She has been transition to oral Lasix and appears euvolemic at this time. Patient's main complaint is her abdominal distention and she has been unable to have a bowel movement for over a week now. She received multiple enemas a dose of lactulose and had a small smear but no significant bowel movement. She is adamant that she does not want surgery as she does not want a colostomy. Dr. Hutton following this patient closely. Labs today reveal a white blood cell count of 20.3, hemoglobin 9.8, sodium 132, BUN of 39 creatinine of 0.79. Blood glucose remained stable in the 120s. 06/27/2024 Patient evaluated today in follow up on the medical floor. Patient now having multiple bowel movements. Abdominal xray this AM reveals similar distention throughout the small and large bowel. Her abdomen is less distended and having increased bowel sounds. Lungs are diminished. She continues to have a congested cough. Repeat blood culture negative so far. White blood cell count 13.2, hgb 1 0.8, sodium 134, potassium 3.4, BUN 29, creatinine 0.75. Limited echocardiogram shows EF 55%. 06/28/2024 Patient is evaluated in follow-up in the medical floor. Patient has had multiple bowel movements. She underwent fluoroscopy enema today findings of severe sigmoid diverticulosis involving the sigmoid colon with circular wall hypertrophy and mild luminal narrowing which may result a degree of proximal distention no definite fluoroscopic evidence to suggest acute diverticulitis. Patient is not having any more abdominal distention. Her white blood cell count is normalized to 10.2, hemoglobin 10.3, sodium of 132, potassium 3.3, BUN of 16 creatinine 0.50. She remains on IV cefazolin and oral Flagyl. She is on Mycostatin for oral thrush. She continues on oxygen via nasal cannula on 4 L. 06/29/2024 Patient is evaluated in follow-up in the medical floor. She is sitting up in the chair. She is reporting some back muscle spasms today we will give a small dose of a muscle relaxer for her. She was having some fecal incontinence after the having the barium enema yesterday and she states that this has resolved. We can trial to take the Medina catheter out today as she has now been having multiple bowel movements. Patient remains on volumes of oxygen via nasal cannula. Patient is 96% oxygenation. She is afebrile. White blood cell count 10.2 hemoglobin 10.3, sodium 135, potassium 3.6, BUN of 9 creatinine of 0.51 calcium of 8.3. Repeat blood cultures negative so far. REVIEW OF SYSTEMS: CONSTITUTIONAL: No fever, Reports fatigue HEENT: No recent visual problems or hearing problems. Denied any sore throat. CARDIOVASCULAR: No chest pain, orthopnea, PND, no palpitations, no syncope. PULMONARY: Reports shortness of breath and cough, no hemoptysis. GASTROINTESTINAL: No diarrhea, no nausea, no vomiting, no abdominal pain. Now having BMs NEUROLOGICAL: No headaches, no weakness, no numbness. PHYSICAL EXAMINATION: GENERAL: The patient is alert and oriented x3, not in any acute distress. Well developed, well nourished. on 4L of oxygen. HEENT: Pupils are round and equally reacting to light. EOMI. No scleral icterus. No conjunctival pallor. Normocephalic, atraumatic. No pharyngeal erythema. No thyromegaly. CARDIOVASCULAR: S1 and S2 present. No murmurs, rubs, or gallops. PULMONARY: Chest is clear to auscultation, no wheezing or crackles. ABDOMEN: Soft, nontender, distended normal active bowel sounds. No palpable organomegaly. MUSCULOSKELETAL: No joint swelling or deformity. EXTREMITIES: No cyanosis, clubbing, or pedal edema. Mild peripheral edema NEUROLOGICAL: Gross neurological examination did not reveal any focal deficits. Generalized weakness SKIN: No rashes. Assessment and Plan Abdominal distention with concern for ileus vs. SBO, resolving Acute on chronic hypoxemic respiratory failure secondary to acute exacerbation of systolic CHF Staph aureus bacteremia Leukocytosis possibly from recent steroid injection to shoulder Recent RSV infection requiring home oxygen on discharge Oral thrush and mouth sores Volume overload likely from fluids received during prior hospital stay Transaminitis likely from vascular congestion Hypervolemic hyponatremia Hyperkalemia Urinary retention requiring indwelling medina catheter Hypertension Hyperlipidemia Complete heart block and permanent pacemaker Asthma/COPD Hx of diverticulitis with colostomy and reversal Hx GI bleed GI prophylaxis DVT prophylaxis Full Code Plan Continue antibiotics in the form of IV cefazolin and oral metronidazole Blood culture was repeated yesterday and need to document clearance prior to discharge ID following cultures closely repeat blood cultures negative so far Patient remains on clear liquid diet and continues with quite a bit of nausea. Continue lactulose twice daily Recommend to complete a trial of void today and discontinue the medina catheter. Add cools solution QID and check a vitamin B12 and folate level. Losartan remains on hold Patient has been transition to oral Lasix and appears euvolemic at this time Continue oxygen support Cardiology, pulmonology consultation Repeat BMP/CBC in the AM PT/OT consultation Downgrade to medical floor and possible discharge home in the next 24 hours The impression and plan of care has been dictated by Anh Moore, Nurse Practitioner as directed. Dr. Faheem MD I have performed a history and physical examination and medical decision making of this patient, discussed the same with the dictator, and agree with the dictators assessment and plan as written, documented as a scribe. Based on total visit time, I have performed more than 50% of this visit. Objective - Vital Signs Vital signs: Vital Signs Temp 98.4 F 06/29/24 07:17 Pulse 80 06/29/24 13:24 Resp 22 06/29/24 07:17 BP 147/66 06/29/24 07:17 Pulse Ox 96 06/29/24 07:17 FiO2 Intake & Output 06/28/24 06/29/24 06/29/24 18:59 06:59 18:59 Intake Total 450 Output Total 1425 750 Balance -975 -750 Intake: Oral 450 Output: Urine 1425 750 Other: Voiding Method Indwelling Catheter Indwelling Catheter Indwelling Catheter # Bowel Movements 1 1 - Labs CBC & Chem 7: 06/28/24 06:08 06/29/24 10:26 Labs: Abnormal Lab Results - Last 24 Hours (Table) 06/29/24 Range/Units 10:26 Sodium 135 L (137-145) mmol/L Chloride 94 L (98-107) mmol/L Carbon Dioxide 38 H (22-30) mmol/L Creatinine 0.51 L (0.52-1.04) mg/dL Calcium 8.3 L (8.4-10.2) mg/dL Microbiology - Last 24 Hours (Table) 06/26/24 13:10 Blood Culture - Preliminary Blood Assessment and Plan Time with Patient: Less than 30
[2024-06-29] MEDS: POTASSIUM CHLORIDE ER 20 MEQ TAB.ER PO STA (14:35)
--- NOTE | 2024-06-29 15:25 | P.PN ---
Subjective Progress Note Date: 06/28/24 Principal diagnosis: Reason for follow-up is pneumonia and bacteremia Patient is a 83-year-old female with a past medical history significant for asthma COPD GI bleed musculoskeletal disorder presenting to the hospital for evaluation of increasing shortness of breath patient did have possible culture with MSSA prompted this consultation, did have a CT of the chest abdominal pelvis concerning for left upper right middle lobe consolidation suggestive of pneumonia and large stool burden concerning for large bowel obstruction On today's evaluation that is 06/28/2024, the patient continues to be afebrile, the patient is currently on 4 L current oxygen and breathing more comfortably no chest pain shortness with any worsening cough no abdominal pain having multiple loose stool no nausea or vomiting. Patient white count is normalized to 10.2, creatinine 0.50 Objective - Vital Signs Vital signs: Vital Signs Temp 98.3 F 06/28/24 16:40 Pulse 84 06/28/24 17:05 Resp 20 06/28/24 16:40 BP 145/74 06/28/24 16:40 Pulse Ox 94 L 06/28/24 16:40 FiO2 Intake & Output 06/27/24 06/28/24 06/28/24 18:59 06:59 18:59 Intake Total 480 100 450 Output Total 5109 113 3335 Balance -1170 600 -975 Weight 95 kg Intake: Intake, IV Titration 100 Amount ceFAZolin 2 gm In Sodium 100 Chloride 0.9% 50 ml @ 100 mls/hr IVPB Q8HR [facility] Rx# :[id number] Oral 480 450 Output: Urine 8822 290 1648 Other: Voiding Method Indwelling Catheter Indwelling Catheter Indwelling Catheter # Voids 1 # Bowel Movements 1 1 1 - Exam GENERAL DESCRIPTION: An elderly female up in the chair in no distress RESPIRATORY SYSTEM: Unlabored breathing , decreased breath sounds at bases HEART: S1 S2 regular rate and rhythm , ABDOMEN: Soft , mild distention and tenderness EXTREMITIES: No edema feet - Labs CBC & Chem 7: 06/28/24 06:08 06/29/24 10:26 Labs: Abnormal Lab Results - Last 24 Hours (Table) 06/28/24 06/28/24 Range/Units 06:08 06:08 RBC 3.38 L (3.80-5.40) m/uL Hgb 10.3 L (11.4-16.0) gm/dL Hct 33.1 L (34.0-46.0) % Neutrophils # 8.6 H (1.3-7.7) k/uL Lymphocytes # 0.7 L (1.0-4.8) k/uL Sodium 132 L (137-145) mmol/L Potassium 3.3 L (3.5-5.1) mmol/L Chloride 97 L (98-107) mmol/L Carbon Dioxide 33 H (22-30) mmol/L Creatinine 0.50 L (0.52-1.04) mg/dL Calcium 8.1 L (8.4-10.2) mg/dL Microbiology - Last 24 Hours (Table) 06/26/24 13:10 Blood Culture - Preliminary Blood Assessment and Plan (1) MSSA bacteremia Current Visit: Yes Status: Acute Code(s): R78.81 - BACTEREMIA; B95.61 - METHICILLIN SUSCEP STAPH INFCT CAUSING DIS CLASSD [id number] SNOMED Code(s): 79912 3004 (2) Leukocytosis Current Visit: Yes Status: Acute Code(s): D72.829 - ELEVATED WHITE BLOOD CELL COUNT, UNSPECIFIED SNOMED Code(s): 477751461 Plan: 1patient with MSSA bacteremia in this patient presenting to the hospital with increasing shortness of breath and a cough concerning likely for pneumonia to be likely source for this MSSA bacteremia underlying endovascular source cannot be excluded, patient also having significant abdominal pain at a tenderness etiology likely bowel obstruction did not mention any colitis 2-patient did have CT of chest abdominal pelvis concerning for pneumonia and bowel obstruction for the patient seem to have responded to the conservative treatment and is having bowel movement 3-patient white count has normalized, continue with the cefazolin and Flagyl and monitor clinical course closely Dictation was produced using [employer] dictation software. please excuse any grammatical, word or spelling errors. Time with Patient: Less than 30
--- NOTE | 2024-06-29 15:26 | P.PN ---
Subjective Progress Note Date: 06/29/24 Principal diagnosis: Reason for follow-up is pneumonia and bacteremia Patient is a 83-year-old female with a past medical history significant for asthma COPD GI bleed musculoskeletal disorder presenting to the hospital for evaluation of increasing shortness of breath patient did have possible culture with MSSA prompted this consultation, did have a CT of the chest abdominal pelvis concerning for left upper right middle lobe consolidation suggestive of pneumonia and large stool burden concerning for large bowel obstruction On today's evaluation that is 06/29/2024,the patient remains to be afebrile, patient is on 4 L nasal cannula supplemental oxygen and breathing more comfortably denies any chest pain or worsening of abdominal pain did have resolution of her diarrhea. Patient did have a creatinine 0.51 no CBC was done today blood culture repeat currently pending Objective - Vital Signs Vital signs: Vital Signs Temp 98.4 F 06/29/24 07:17 Pulse 80 06/29/24 10:08 Resp 22 06/29/24 07:17 BP 147/66 06/29/24 07:17 Pulse Ox 96 06/29/24 07:17 FiO2 Intake & Output 06/28/24 06/29/24 06/29/24 18:59 06:59 18:59 Intake Total 450 Output Total 1425 750 Balance -975 -750 Intake: Oral 450 Output: Urine 1425 750 Other: Voiding Method Indwelling Catheter Indwelling Catheter Indwelling Catheter # Bowel Movements 1 1 - Exam GENERAL DESCRIPTION: An elderly female up in the chair in no distress RESPIRATORY SYSTEM: Unlabored breathing , decreased breath sounds at bases HEART: S1 S2 regular rate and rhythm , ABDOMEN: Soft , mild distention and tenderness EXTREMITIES: No edema feet - Labs CBC & Chem 7: 06/28/24 06:08 06/29/24 10:26 Labs: Abnormal Lab Results - Last 24 Hours (Table) 06/29/24 Range/Units 10:26 Sodium 135 L (137-145) mmol/L Chloride 94 L (98-107) mmol/L Carbon Dioxide 38 H (22-30) mmol/L Creatinine 0.51 L (0.52-1.04) mg/dL Calcium 8.3 L (8.4-10.2) mg/dL Microbiology - Last 24 Hours (Table) 06/26/24 13:10 Blood Culture - Preliminary Blood Assessment and Plan (1) MSSA bacteremia Current Visit: Yes Status: Acute Code(s): R78.81 - BACTEREMIA; B95.61 - METHICILLIN SUSCEP STAPH INFCT CAUSING DIS CLASSD [id number] SNOMED Code(s): 161393739 (2) Leukocytosis Current Visit: Yes Status: Acute Code(s): D72.829 - ELEVATED WHITE BLOOD CELL COUNT, UNSPECIFIED SNOMED Code(s): 882460063 Plan: 1patient with MSSA bacteremia in this patient presenting to the hospital with increasing shortness of breath and a cough concerning likely for pneumonia to be likely source for this MSSA bacteremia underlying endovascular source cannot be excluded, patient also having significant abdominal pain at a tenderness etiology likely bowel obstruction did not mention any colitis 2-patient did have CT of chest abdominal pelvis concerning for pneumonia and bowel obstruction for the patient seem to have responded to the conservative treatment and is having bowel movement 3-patient white count has normalized and blood culture repeat has been negative so far at the remains to be negative by tomorrow she can get a midline and will place for a 10-day course of cefazolin on discharge, question concern answered Dictation was produced using [employer] dictation software. please excuse any grammatical, word or spelling errors. Time with Patient: Less than 30
[2024-06-29] MEDS: MAG HYDROX/AL HYDROX/SIMETH 30 ML, LIDOCAINE VISCOUS 2% 30 ML, diphenhydrAMINE ELIXIR 7... PO SCH (16:24)
[2024-06-29] MEDS: methocarbamoL 500 MG TAB PO PRN (16:24)
--- NOTE | 2024-06-29 23:15 | P.PN ---
Subjective Progress Note Date: 06/29/24 On 06/26/2024, the patient is being seen for a follow-up. The patient is currently comfortable on 4 L of oxygen by nasal cannula. The patient has staff aureus septicemia and the blood culture was positive for MSSA. Meanwhile, I reviewed the CAT scan of the chest abdomen and pelvis that was done on 06/24/2024. I am concerned of the patchy pulmonary potential the patient has peripherally in the right upper lobe and the left upper lobe and those infiltrates have some central cavitation. Based on that, the possibility of septic embolism cannot be completely ruled out. A previous echocardiogram that was done on this patient back in 06/12/2024 showed no valvular vegetation and the patient had a preserved LV function with mild impairment in ejection fraction of 45 to 50%. I think it is worthwhile to repeat the blood cultures and repeat echocardiogram to rule out any possibility of infective endocarditis. Meanwhile, the patient continues to have difficulties with bowel obstruction. She is not sure when was the last bowel movement. She thinks it was approximately 5 days ago. She has a pacema ker in place. The cardiac rhythm is normal sinus at this point. She remains on IV cefazolin. He is also on Flagyl 500 mg p.o. 3 times daily and IV Solu-Medrol 40 mg every 12 hours. He remains on DuoNeb nebulized treatments [id number]. General surgery is on the case regarding her bowel obs truction. The patient is a partial obstruction of the colon exacerbated by constipation. She was given lactulose today to enemas. On 06/27/2024, the patient continues to feel better compared to yesterday. Seems to be less short of breath. She has not had a bowel movement and this has also helped her with her overall respiratory status. She feels less distended and less bloated compared to yesterday. Note that she has bilateral staphylococcal pneumonia left more than right. The patient was found to have MSSA sepsis and the patient is currently on IV cefazolin. Echocardiogram was also repeated and based on the limited views, there was no evidence of any endocarditis. Ejection fraction is normal and the patient had repeat blood culture sent and results are still pending for now.Abdominal x-ray was done today for abdominal distention the patient was found to have distention of the large and small bowel throughout the abdomen. The white cell count is currently down to 13.2 from 20.3. Hemoglobin is stable at 10.8 and a platelet count is at 250. Sodium is at 134, potassium is at 3.4, BUN is 29 and a creatinine of 0.7. The patient was given a flutter valve. The patient was also given an incentive spirometer. She remains on Symbicort. She remains on DuoNeb nebulized treatments [id number]. Rest of the medications remain unchanged. She is also on Flagyl 500 mg p.o. 3 times daily. Patient is being seen by general surgery. No nausea. No emesis. Good appetite. She did have a large bowel movement activity yesterday. On 06/28/2024, the patient is being seen for a follow-up. Overall condition is stable. Denies having any specific complaints. She underwent a barium enema upon recommendations by general surgery and the patient was found to have sigmoid diverticulosis and cervical wall hypertrophy with mild luminal narrowing. No evidence of diverticulitis. The patient is stooling for now. Abdomen is less distended. The white cell count is at 10.2 with a hemoglobin of 10.3 and a platelet count of 261. Sodium is at 132, BUN 16 and a creatinine of 0.5. Repeat blood culture has been negative and the patient had an echocardiogram, limited view that showed no evidence of any endocarditis. Otherwise, the patient denies having any specific complaints. The patient remains on 4 L of oxygen by nasal cannula with a pulse ox of 94%. The patient remains on IV cefazolin. Rest of medications are unchanged. 06/29/2024, patient is being seen for a follow-up. Condition remains stable. No new complaints. Blood cultures are negative. The white cell count is improved from yesterday labs. Renal function stable. Electrolytes are stable. Serum bicarb is up to 38. The patient is a negative fluid balance of 1.7 L over the past 24 hours. The patient remains on diuretics and the patient is currently on 40 mg of Lasix on daily basis. She remains on cefazolin. She remains on Flagyl. She is producing good stool and bowel movements. Abdomen is nondistended. Objective - Vital Signs Vital signs: Vital Signs Temp 98.2 F 06/29/24 13:55 Pulse 94 06/29/24 13:55 Resp 20 06/29/24 13:55 BP 131/73 06/29/24 13:55 Pulse Ox 95 06/29/24 13:55 FiO2 Intake & Output 06/28/24 06/29/24 06/29/24 18:59 06:59 18:59 Intake Total 450 Output Total 1425 750 Balance -975 -750 Intake: Oral 450 Output: Urine 1425 750 Other: Voiding Method Indwelling Catheter Indwelling Catheter Indwelling Catheter # Bowel Movements 1 1 - Exam No acute distress, oriented 3. The patient is currently on 4 L of nasal cannula. No audible wheezing. No use of accessory muscles. HEENT examination is grossly unremarkable. Mucous membranes are moist. No oral lesions. Neck supple. Full range of motion. No adenopathy thyromegaly or neck vein distention. Cardiovascular examination reveals regular rhythm rate. S1-S2 normal. No S3 or S4. No discernible murmur noted. Lungs reveal mild scattered rhonchi, at the left lung base. No wheezes. No crackles. Right lung is relatively clear. Abdomen soft bowel sounds are heard. No masses or tenderness. Abdomen is slightly distended. There is no tenderness. Bowel sounds are hypoactive. Extremities are intact. No cyanosis or clubbing. Mild edema is present. Skin is without rash or lesion. Neurologic examination is brief but nonfocal. - Labs CBC & Chem 7: 06/28/24 06:08 06/29/24 10:26 Labs: Abnormal Lab Results - Last 24 Hours (Table) 06/29/24 Range/Units 10:26 Sodium 135 L (137-145) mmol/L Chloride 94 L (98-107) mmol/L Carbon Dioxide 38 H (22-30) mmol/L Creatinine 0.51 L (0.52-1.04) mg/dL Calcium 8.3 L (8.4-10.2) mg/dL Microbiology - Last 24 Hours (Table) 06/26/24 13:10 Blood Culture - Preliminary Blood Assessment and Plan Plan: Acute on chronic hypoxemic respiratory failure secondary to an acute exacerbation of systolic congestive heart failure. the patient is currently on 4 L of oxygen by nasal cannula. CAT scan of the chest was noted and the patient has patchy peripheral pulmonary opacities left upper lobe and the right upper lobe with some central cavitation. The patient also has lower lobe consolidation bilaterally. Staph aureus septicemia, still under investigation the patient remains on IV cefazolin. This is an MSSA infection. 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 Rule o ut endovascular infection and the patient has a pacemaker in place. Repeat blood cultures still pending for now. Meanwhile, the patient is clinically and hemodynamically stable. White cell count is improving. Leukocytosis secondary to bacteremia with presumptive Staph aureus. The white cell count is improving and it was as high as 48,000 currently down to 20 and furthermore, the white cell count dropped down to 10.2 Abdominal pain secondary to suspected colonic ileus/obstruction. There is a partial small bowel obstruction. The patient was able to have a large bowel movement yesterday and the patient is feeling less distended and less bloated compared to yesterday. Overall respiratory status is also improved. Ba enema was completed and it is consistent with diverticulosis Hyponatremia, improving. Hyperkalemia, improved. Transaminitis, improving. Recent hospitalization from June 10 to June 20, 2024 for RSV infection, COPD exacerbation, right lower lobe pneumonia. Acute on chronic pain secondary to degenerative arthritis requiring pain clinic intervention. History of complicated diverticulitis requiring colectomy, colostomy and subsequent reversal. Complete heart block requiring permanent pacemaker implantation. Multiple orthopedic surgeries due to degenerative arthritis. History of skin cancer, removed. History of migraines. Hypothyroidism status post partial thyroidectomy. Poor overall functional performance based on the above-mentioned multiple comorb idities. Plan: Overall condition is unchanged Keep the patient on 4 L of oxygen by nasal cannula, attempt to wean down FiO2 as tolerated Continue DuoNeb updrafts Continue IV cefazolin Repeat blood cultures are negative Repeat limited echocardiogram showed no evidence of any endocarditis Patient had a bowel movement and the patient is stooling Feels better ID is on the case General Surgery is on the case White cell count is improving No hypotension Soapsuds enemas and the patient was given lactulose We will continue to follow.
[2024-06-30 08:11] LABS: Blood Urea Nitrogen 5.1 mg/dL (9.0-27.0); Calcium 7.9 mg/dL (8.7-10.3); Carbon Dioxide 33.5 mmol/L (21.6-31.8); Chloride 99 mmol/L (96-109); Glucose 104 mg/dL (70-110); Potassium 3.3 mmol/L (3.5-5.5); Sodium 139 mmol/L (135-145)
--- NOTE | 2024-06-30 11:07 | XR ---
EXAMINATION TYPE: XR chest 2V DATE OF EXAM: 06/30/2024 10:48 AM COMPARISON: Chest radiographs from 06/24/2024 CLINICAL INDICATION: Female, 83 years old with history of fever; [employer] TECHNIQUE: XR chest 2V Frontal and lateral views of the chest. FINDINGS: Lungs/Pleura: No evidence of focal consolidation or pneumothorax. Blunting of the costophrenic angles is present. Pulmonary vascularity: Pulmonary vascular congestion. Heart/mediastinum: Cardiomediastinal silhouette is enlarged and stable. Two lead cardiac conduction d evice overlying the left hemithorax with lead tips projecting over the right ventricle and right atri um. Musculoskeletal: No acute osseous pathology. Right shoulder arthroplasty appears intact. IMPRESSION: Cardiomegaly, pulmonary vascular congestion and bilateral pleural effusions. Correlate with BNP for c ongestive heart failure. [facility], , 06/30/2024 11:04 AM
[2024-06-30] MEDS: POTASSIUM CHLORIDE ER 20 MEQ TAB.ER PO STA (11:14)
[2024-06-30 12:47] LABS: Influenza A Not Detected (Not Detectd); Influenza B Not Detected (Not Detectd); RSV Not Detected (Not Detectd)
[2024-06-30] MEDS: FUROSEMIDE 10 MG/ML 2 ML VIAL IV ONE (13:31)
--- NOTE | 2024-06-30 14:36 | P.PN ---
Subjective Progress Note Date: 06/30/24 This is an 83 year old female with medical history of asthma, COPD, permanent pacemaker, hypertension, hyperlipidemia, GI bleed, recent admission for RSV. Patient was discharged home on Wednesday from this hospital she was treated during that stay for acute RSV, COPD exacerbation and pneumonia. She had been recommended for subacute rehab although patient and family had opted for return home on discharge. Patient was discharged on 3L of oxygen which has has been wearing, since arrival home she has been increasingly short of breath, having continued cough and noted to have significant lower extremity edema. Because of the edema patient was unable to ambulate. She has been taking oral lasix at home without improvement in her symptoms. Patient was found to be hypoxic with saturations in the 80s and brought to the hospital for further evaluation. Patient noted to have significant abdominal distention and states she has not had a good sized bowel movement since Wednesday. Now patient returns with chest xray revealing cardiomegaly with small left pleural effusion and left basilar acute infiltrate and or atelectasis. proBNP was elevated at 3680. Echocardiogram completed on June 13 during prior admission reveals an EF of 45- 50%.Patient had white blood cell count of 48. Sodium of 130, potassium 5.5, elevation of LFTs, procalcitonin level of 16.40. Viral panel is negative for influenza, RSV and covid. Patient was started empirically on IV ceftriaxone and IV solumedrol. Cultures were taken. Pulmonology and cardiology consulted. 06/26/2024 Patient is evaluated in follow-up on the medical floor. She is complaining of less shortness of breath. She remains on oxygen via nasal cannula at 4 L with saturations of 95%. Lungs at this point are essentially diminished with no wheezing or crackles noted. She has been transition to oral Lasix and appears euvolemic at this time. Patient's main complaint is her abdominal distention and she has been unable to have a bowel movement for over a week now. She received multiple enemas a dose of lactulose and had a small smear but no significant bowel movement. She is adamant that she does not want surgery as she does not want a colostomy. Dr. Hutton following this patient closely. Labs today reveal a white blood cell count of 20.3, hemoglobin 9.8, sodium 132, BUN of 39 creatinine of 0.79. Blood glucose remained stable in the 120s. 06/27/2024 Patient evaluated today in follow up on the medical floor. Patient now having multiple bowel movements. Abdominal xray this AM reveals similar distention throughout the small and large bowel. Her abdomen is less distended and having increased bowel sounds. Lungs are diminished. She continues to have a congested cough. Repeat blood culture negative so far. White blood cell count 13.2, hgb 1 0.8, sodium 134, potassium 3.4, BUN 29, creatinine 0.75. Limited echocardiogram shows EF 55%. 06/28/2024 Patient is evaluated in follow-up in the medical floor. Patient has had multiple bowel movements. She underwent fluoroscopy enema today findings of severe sigmoid diverticulosis involving the sigmoid colon with circular wall hypertrophy and mild luminal narrowing which may result a degree of proximal distention no definite fluoroscopic evidence to suggest acute diverticulitis. Patient is not having any more abdominal distention. Her white blood cell count is normalized to 10.2, hemoglobin 10.3, sodium of 132, potassium 3.3, BUN of 16 creatinine 0.50. She remains on IV cefazolin and oral Flagyl. She is on Mycostatin for oral thrush. She continues on oxygen via nasal cannula on 4 L. 06/29/2024 Patient is evaluated in follow-up in the medical floor. She is sitting up in the chair. She is reporting some back muscle spasms today we will give a small dose of a muscle relaxer for her. She was having some fecal incontinence after the having the barium enema yesterday and she states that this has resolved. We can trial to take the Medina catheter out today as she has now been having multiple bowel movements. Patient remains on volumes of oxygen via nasal cannula. Patient is 96% oxygenation. She is afebrile. White blood cell count 10.2 hemoglobin 10.3, sodium 135, potassium 3.6, BUN of 9 creatinine of 0.51 calcium of 8.3. Repeat blood cultures negative so far. 06/30/2024 Patient is eval seen in follow-up in the medical floor. Patient is transferring to the wheelchair from her chair and having difficulty states that her legs and arms feel weak. Patient was recommended for 10 days of IV cefazolin 3 midline and because of this patient has agreed to discharge to subacute rehab. She continues on oxygen via nasal cannula at 3 to 4 L. She is having some scattered wheezing today. A follow-up chest x-ray reveals vascular congestion. A one- time dose of IV Lasix will be given. Patient continues on oral Lasix daily. REVIEW OF SYSTEMS: CONSTITUTIONAL: No fever, Reports fatigue HEENT: No recent visual problems or hearing problems. Denied any sore throat. CARDIOVASCULAR: No chest pain, orthopnea, PND, no palpitations, no syncope. PULMONARY: Reports shortness of breath and cough, no hemoptysis. GASTROINTESTINAL: No diarrhea, no nausea, no vomiting, no abdominal pain. Now having BMs NEUROLOGICAL: No headaches, no weakness, no numbness. PHYSICAL EXAMINATION: GENERAL: The patient is alert and oriented x3, not in any acute distress. Well developed, well nourished. on 4L of oxygen. HEENT: Pupils are round and equally reacting to light. EOMI. No scleral icterus. No conjunctival pallor. Normocephalic, atraumatic. No pharyngeal erythema. No thyromegaly. CARDIOVASCULAR: S1 and S2 present. No murmurs, rubs, or gallops. PULMONARY: Chest is clear to auscultation, no wheezing or crackles. ABDOMEN: Soft, nontender, distended normal active bowel sounds. No palpable organomegaly. MUSCULOSKELETAL: No joint swelling or deformity. EXTREMITIES: No cyanosis, clubbing, or pedal edema. Mild peripheral edema NEUROLOGICAL: Gross neurological examination did not reveal any focal deficits. Generalized weakness SKIN: No rashes. Assessment and Plan Abdominal distention with concern for ileus vs. SBO, resolving Acute on chronic hypoxemic respiratory failure secondary to acute exacerbation of systolic CHF Staph aureus bacteremia Leukocytosis possibly from recent steroid injection to shoulder Recent RSV infection requiring home oxygen on discharge Oral thrush and mouth sores Volume overload likely from fluids received during prior hospital stay Transaminitis likely from vascular congestion Hypervolemic hyponatremia Hyperkalemia Urinary retention requiring indwelling medina catheter Hypertension Hyperlipidemia Complete heart block and permanent pacemaker Asthma/COPD Hx of diverticulitis with colostomy and reversal Hx GI bleed GI prophylaxis DVT prophylaxis Full Code Plan Continue antibiotics in the form of IV cefazolin and oral metronidazole Blood culture was repeated yesterday and need to document clearance prior to discharge ID following cultures closely repeat blood cultures negative so far Patient will require 10 days of IV Cefazolin on discharge and midline has been placed. Diet advanced to full liquid Continue lactulose twice daily Add cools solution QID and check a vitamin B12 and folate level. Losartan remains on hold Patient has been transition to oral Lasix and appears euvolemic at this time Continue oxygen support Cardiology, pulmonology consultation Repeat BMP/CBC in the AM PT/OT consultation Discharge to rehab when stable and insurance authorization has been admitted. The impression and plan of care has been dictated by Anh Moore, Nurse Practitioner as directed. Dr. Faheem MD I have performed a history and physical examination and medical decision making of this patient, discussed the same with the dictator, and agree with the dictators assessment and plan as written, documented as a scribe. Based on total visit time, I have performed more than 50% of this visit. Objective - Vital Signs Vital signs: Vital Signs Temp 97.8 F 06/30/24 08:00 Pulse 84 06/30/24 12:47 Resp 18 06/30/24 08:00 BP 138/66 06/30/24 08:00 Pulse Ox 99 06/30/24 09:07 FiO2 Intake & Output 06/29/24 06/30/24 06/30/24 18:59 06:59 18:59 Output Total 200 400 Balance -200 -400 Output: Urine 200 400 Uretheral (Medina) 400 Other: Voiding Method Indwelling Catheter # Voids 1 # Bowel Movements 1 1 - Labs CBC & Chem 7: 06/28/24 06:08 06/30/24 05:41 Labs: Abnormal Lab Results - Last 24 Hours (Table) 06/29/24 06/30/24 Range/Units 10:26 05:41 Potassium 3.3 L (3.5-5.5) mmol/L Carbon Dioxide 33.5 H (21.6-31.8) mmol/L BUN 5.1 L (9.0-27.0) mg/dL BUN/Creatinine Ratio 8.50 L (12.00-20.00) Ratio Calcium 7.9 L (8.7-10.3) mg/dL Vitamin B12 1035.0 H (200.0-944.0) pg/mL Microbiology - Last 24 Hours (Table) 06/26/24 13:10 Blood Culture - Preliminary Blood Assessment and Plan Time with Patient: Less than 30
--- NOTE | 2024-06-30 14:48 | P.PN ---
Subjective Progress Note Date: 06/30/24 Principal diagnosis: Reason for follow-up is pneumonia and bacteremia Patient is a 83-year-old female with a past medical history significant for asthma COPD GI bleed musculoskeletal disorder presenting to the hospital for evaluation of increasing shortness of breath patient did have possible culture with MSSA prompted this consultation, did have a CT of the chest abdominal pelvis concerning for left upper right middle lobe consolidation suggestive of pneumonia and large stool burden concerning for large bowel obstruction On today's evaluation that is 06/30/2024, the patient continues to be afebrile, the patient is on r 4 L nasal oxygen and breathing comfortably, the Pt denies having any chest pain or any worsening cough, the patient denies having any abdominal pain no vomiting or any diarrhea has been reported by the nursing staff. Patient did have creatinine 0.6 no CBC was done today blood culture repeat has been negative Objective - Vital Signs Vital signs: Vital Signs Temp 97.8 F 06/30/24 08:00 Pulse 84 06/30/24 12:47 Resp 18 06/30/24 08:00 BP 138/66 06/30/24 08:00 Pulse Ox 99 06/30/24 09:07 FiO2 Intake & Output 06/29/24 06/30/24 06/30/24 18:59 06:59 18:59 Output Total 200 400 Balance -200 -400 Output: Urine 200 400 Uretheral (Miranda) 400 Other: Voiding Method Indwelling Catheter # Voids 1 # Bowel Movements 1 1 - Exam GENERAL DESCRIPTION: An elderly female up in the chair in no distress RESPIRATORY SYSTEM: Unlabored breathing , decreased breath sounds at bases HEART: S1 S2 regular rate and rhythm , ABDOMEN: Soft , mild distention and tenderness EXTREMITIES: No edema feet - Labs CBC & Chem 7: 06/28/24 06:08 06/30/24 05:41 Labs: Abnormal Lab Results - Last 24 Hours (Table) 06/29/24 06/30/24 Range/Units 10:26 05:41 Potassium 3.3 L (3.5-5.5) mmol/L Carbon Dioxide 33.5 H (21.6-31.8) mmol/L BUN 5.1 L (9.0-27.0) mg/dL BUN/Creatinine Ratio 8.50 L (12.00-20.00) Ratio Calcium 7.9 L (8.7-10.3) mg/dL Vitamin B12 1035.0 H (200.0-944.0) pg/mL Microbiology - Last 24 Hours (Table) 06/26/24 13:10 Blood Culture - Preliminary Blood Assessment and Plan (1) MSSA bacteremia Current Visit: Yes Status: Acute Code(s): R78.81 - BACTEREMIA; B95.61 - METHICILLIN SUSCEP STAPH INFCT CAUSING DIS CLASSD [id number] SNOMED Code(s): 858258778 (2) Leukocytosis Current Visit: Yes Status: Acute Code(s): D72.829 - ELEVATED WHITE BLOOD CELL COUNT, UNSPECIFIED SNOMED Code(s): 512333625 Plan: 1patient with MSSA bacteremia in this patient presenting to the hospital with increasing shortness of breath and a cough concerning likely for pneumonia to be likely source for this MSSA bacteremia underlying endovascular source cannot be excluded, patient also having significant abdominal pain at a tenderness etiology likely bowel obstruction did not mention any colitis 2-patient did have CT of chest abdominal pelvis concerning for pneumonia and bowel obstruction for the patient seem to have responded to the conservative treatment and is having bowel movement 3-patient white count has normalized and blood culture repeat has been negative so far 4patient is cleared to get a midline placement for outpatient antibiotic with plan for a 10-day course of cefazolin on discharge, question concern answered Dictation was produced using [employer] dictation software. please excuse any grammatical, word or spelling errors. Time with Patient: Less than 30
--- NOTE | 2024-06-30 14:57 | P.PN ---
Subjective Progress Note Date: 06/30/24 SURGICAL PROGRESS NOTE CHIEF COMPLAINT: Partial obstruction colon HISTORY OF PRESENT ILLNESS: Patient having bowel movements. She continues to have issues with nausea. But she is able to tolerate the full liquids. She did have episode of urinary retention this morning. And she is undergoing a follow- up chest x-ray today. She did have a low-grade temp of 100.7 last night. Potassium 3.3 and being replaced PHYSICAL EXAM: VITAL SIGNS: Reviewed. GENERAL: Well-developed in no acute distress. ABDOMEN: Soft. Mildly distended. Nontender. NEUROLOGIC: Alert and oriented. Cranial nerves II through XII grossly intact. ASSESSMENT: 1. Partial obstruction of the colon. Barium enema with no evidence of bowel obstruction. Mild narrowing sigmoid colon. 2. Severe protein calorie malnutrition PLAN: -Continue full liquid diet -Encourage patient increase activity level -Continue protein supplement Physician Janitor Head note has been reviewed by physician. Signing provider agrees with the documented findings, assessment, and plan of care. I have personally seen and examined the patient, reviewed the [employer] /PAs history, exam and MDM and agree with the assessment and plan as written. Based on total visit time, I have performed more than 50% of the visit. As above: Patient doing well from an abdominal point of view. She says she is going to rehab tomorrow. No abdominal pain. Having bowel function. Continue stool softeners. Continue regular diet. Will sign off. Please reconsult if n eeded. Objective - Vital Signs Vital signs: Vital Signs Temp 97.8 F 06/30/24 08:00 Pulse 84 06/30/24 12:47 Resp 18 06/30/24 08:00 BP 138/66 06/30/24 08:00 Pulse Ox 99 06/30/24 09:07 FiO2 Intake & Output 06/29/24 06/30/24 06/30/24 18:59 06:59 18:59 Output Total 200 400 Balance -200 -400 Output: Urine 200 400 Uretheral (Miranda) 400 Other: Voiding Method Indwelling Catheter # Voids 1 # Bowel Movements 1 1 - Labs CBC & Chem 7: 06/28/24 06:08 06/30/24 05:41 Labs: Abnormal Lab Results - Last 24 Hours (Table) 06/29/24 06/30/24 Range/Units 10:26 05:41 Potassium 3.3 L (3.5-5.5) mmol/L Carbon Dioxide 33.5 H (21.6-31.8) mmol/L BUN 5.1 L (9.0-27.0) mg/dL BUN/Creatinine Ratio 8.50 L (12.00-20.00) Ratio Calcium 7.9 L (8.7-10.3) mg/dL Vitamin B12 1035.0 H (200.0-944.0) pg/mL Microbiology - Last 24 Hours (Table) 06/26/24 13:10 Blood Culture - Preliminary Blood
--- NOTE | 2024-06-30 18:02 | P.PN ---
Subjective Progress Note Date: 06/30/24 On 06/26/2024, the patient is being seen for a follow-up. The patient is currently comfortable on 4 L of oxygen by nasal cannula. The patient has staff aureus septicemia and the blood culture was positive for MSSA. Meanwhile, I reviewed the CAT scan of the chest abdomen and pelvis that was done on 06/24/2024. I am concerned of the patchy pulmonary potential the patient has peripherally in the right upper lobe and the left upper lobe and those infiltrates have some central cavitation. Based on that, the possibility of septic embolism cannot be completely ruled out. A previous echocardiogram that was done on this patient back in 06/12/2024 showed no valvular vegetation and the patient had a preserved LV function with mild impairment in ejection fraction of 45 to 50%. I think it is worthwhile to repeat the blood cultures and repeat echocardiogram to rule out any possibility of infective endocarditis. Meanwhile, the patient continues to have difficulties with bowel obstruction. She is not sure when was the last bowel movement. She thinks it was approximately 5 days ago. She has a pacema ker in place. The cardiac rhythm is normal sinus at this point. She remains on IV cefazolin. He is also on Flagyl 500 mg p.o. 3 times daily and IV Solu-Medrol 40 mg every 12 hours. He remains on DuoNeb nebulized treatments [id number]. General surgery is on the case regarding her bowel obs truction. The patient is a partial obstruction of the colon exacerbated by constipation. She was given lactulose today to enemas. On 06/27/2024, the patient continues to feel better compared to yesterday. Seems to be less short of breath. She has not had a bowel movement and this has also helped her with her overall respiratory status. She feels less distended and less bloated compared to yesterday. Note that she has bilateral staphylococcal pneumonia left more than right. The patient was found to have MSSA sepsis and the patient is currently on IV cefazolin. Echocardiogram was also repeated and based on the limited views, there was no evidence of any endocarditis. Ejection fraction is normal and the patient had repeat blood culture sent and results are still pending for now.Abdominal x-ray was done today for abdominal distention the patient was found to have distention of the large and small bowel throughout the abdomen. The white cell count is currently down to 13.2 from 20.3. Hemoglobin is stable at 10.8 and a platelet count is at 250. Sodium is at 134, potassium is at 3.4, BUN is 29 and a creatinine of 0.7. The patient was given a flutter valve. The patient was also given an incentive spirometer. She remains on Symbicort. She remains on DuoNeb nebulized treatments [id number]. Rest of the medications remain unchanged. She is also on Flagyl 500 mg p.o. 3 times daily. Patient is being seen by general surgery. No nausea. No emesis. Good appetite. She did have a large bowel movement activity yesterday. On 06/28/2024, the patient is being seen for a follow-up. Overall condition is stable. Denies having any specific complaints. She underwent a barium enema upon recommendations by general surgery and the patient was found to have sigmoid diverticulosis and cervical wall hypertrophy with mild luminal narrowing. No evidence of diverticulitis. The patient is stooling for now. Abdomen is less distended. The white cell count is at 10.2 with a hemoglobin of 10.3 and a platelet count of 261. Sodium is at 132, BUN 16 and a creatinine of 0.5. Repeat blood culture has been negative and the patient had an echocardiogram, limited view that showed no evidence of any endocarditis. Otherwise, the patient denies having any specific complaints. The patient remains on 4 L of oxygen by nasal cannula with a pulse ox of 94%. The patient remains on IV cefazolin. Rest of medications are unchanged. 06/29/2024, patient is being seen for a follow-up. Condition remains stable. No new complaints. Blood cultures are negative. The white cell count is improved from yesterday labs. Renal function stable. Electrolytes are stable. Serum bicarb is up to 38. The patient is a negative fluid balance of 1.7 L over the past 24 hours. The patient remains on diuretics and the patient is currently on 40 mg of Lasix on daily basis. She remains on cefazolin. She remains on Flagyl. She is producing good stool and bowel movements. Abdomen is nondistended. On 06/30/2024, the patient is being seen for a follow-up. Patient is doing well. She had a low-grade fever that is being monitored. She is currently afebrile. She was weaned down to room air oxygen with a pulse ox of 97%. Earlier than that, the patient was on 4 L of oxygen by nasal cannula. Chest x-ray from today shows cardiomegaly and pulm vessel congestion. Otherwise, no other acute abnormalities. Follow-up blood cultures are negative. No abdominal distention. Viral screen is negative. Working on transferring this patient to [facility]. Objective - Vital Signs Vital signs: Vital Signs Temp 97.8 F 06/30/24 08:00 Pulse 84 06/30/24 12:47 Resp 18 06/30/24 08:00 BP 138/66 06/30/24 08:00 Pulse Ox 99 06/30/24 09:07 FiO2 Intake & Output 06/29/24 06/30/24 06/30/24 18:59 06:59 18:59 Output Total 200 400 Balance -200 -400 Output: Urine 200 400 Uretheral (Miranda) 400 Other: Voiding Method Indwelling Catheter # Voids 1 # Bowel Movements 1 1 - Exam No acute distress, oriented 3. The patient is currently on room air oxygen. HEENT examination is grossly unremarkable. Mucous membranes are moist. No oral lesions. Neck supple. Full range of motion. No adenopathy thyromegaly or neck vein distention. Cardiovascular examination reveals regular rhythm rate. S1-S2 normal. No S3 or S4. No discernible murmur noted. Lungs reveal mild scattered rhonchi, at the left lung base. No wheezes. No crackles. Right lung is relatively clear. Abdomen soft bowel sounds are heard. No masses or tenderness. Abdomen is slightly distended. There is no tenderness. Bowel sounds are hypoactive. Extremities are intact. No cyanosis or clubbing. Mild edema is present. Skin is without rash or lesion. Neurologic examination is brief but nonfocal. - Labs CBC & Chem 7: 06/28/24 06:08 06/30/24 05:41 Labs: Abnormal Lab Results - Last 24 Hours (Table) 06/29/24 06/30/24 Range/Units 10:26 05:41 Potassium 3.3 L (3.5-5.5) mmol/L Carbon Dioxide 33.5 H (21.6-31.8) mmol/L BUN 5.1 L (9.0-27.0) mg/dL BUN/Creatinine Ratio 8.50 L (12.00-20.00) Ratio Calcium 7.9 L (8.7-10.3) mg/dL Vitamin B12 1035.0 H (200.0-944.0) pg/mL Microbiology - Last 24 Hours (Table) 06/26/24 13:10 Blood Culture - Preliminary Blood Assessment and Plan Plan: Acute on chronic hypoxemic respiratory failure secondary to an acute exacerbation of systolic congestive heart failure. the patient is currently on 4 L of oxygen by nasal cannula. CAT scan of the chest was noted and the patient has patchy peripheral pulmonary opacities left upper lobe and the right upper lobe with some central cavitation. The patient also has lower lobe consolidation bilaterally. Staph aureus septicemia, still under investigation the patient remains on IV cefazolin. This is an MSSA infection. 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 Rule out endovascular infection and the patient has a pacemaker in place. Repeat blood cultures still pending for now. Meanwhile, the patient is clinically and hemodynamically stable. White cell count is improving. Leukocytosis secondary to bacteremia with presumptive Staph aureus. The white cell count is improving and it was as high as 48,000 currently down to 20 and furthermore, the white cell count dropped down to 10.2 Abdominal pain secondary to suspected colonic ileus/obstruction. There is a partial small bowel obstruction. The patient was able to have a large bowel movement yesterday and the patient is feeling less distended and less bloated compared to yesterday. Overall respiratory status is also improved. Ba enema was completed and it is consistent with diverticulosis Hyponatremia, improving. Hyperkalemia, improved. Transaminitis, improving. Recent hospitalization from June 10 to June 20, 2024 for RSV infection, COPD exacerbation, right lower lobe pneumonia. Acute on chronic pain secondary to degenerative arthritis requiring pain clinic intervention. History of complicated diverticulitis requiring colectomy, colostomy and subs equent reversal. Complete heart block requiring permanent pacemaker implantation. Multiple orthopedic surgeries due to degenerative arthritis. History of skin cancer, removed. History of migraines. Hypothyroidism status post partial thyroidectomy. Poor overall functional performance based on the above-mentioned multiple comorbidities. Plan: Overall condition is unchanged Wean down the FiO2 and the patient possibly can be placed on room air oxygen Monitor fever pattern Continue DuoNeb updrafts Continue IV cefazolin Repeat blood cultures are negative Repeat limited echocardiogram showed no evidence of any endocarditis Patient had a bowel movement and the patient is stooling Feels better ID is on the case General Surgery is on the case White cell count is improving No hypotension Discharge planning is in progress and the patient is being considered for ECF with IV antibiotics. We will continue to follow.
[2024-06-30 20:45] VITALS: RESP 17
[2024-07-01 09:33] LABS: BUN/Creat Ratio 7.71 Ratio (12.00-20.00); Blood Urea Nitrogen 5.4 mg/dL (9.0-27.0); Calcium 7.6 mg/dL (8.7-10.3); Carbon Dioxide 29.1 mmol/L (21.6-31.8); Chloride 98 mmol/L (96-109); Glucose 103 mg/dL (70-110); Potassium 3.7 mmol/L (3.5-5.5); Sodium 136 mmol/L (135-145)
--- NOTE | 2024-07-01 13:11 | P.DS ---
Providers Date of admission: 06/26/24 07:50 Attending physician: Lio Jaramillo Consults: 06/23/24 06:54 Consult Physician Urgent Consulting Provider: [facility] Consult Reason/Comments: pleural effusion, elevated bnp Do you want consulting provider notified?: Yes Consult Physician Urgent Consulting Provider: Noe Donahue Consult Reason/Comments: aecopd, leukocytosis Do you want consulting provider notified?: Yes 06/24/24 14:02 Consult Physician Routine Consulting Provider: Margi Pulliam Consult Reason/Comments: sepsis Do you want consulting provider notified?: Yes 06/24/24 14:09 Consult Physician Routine Consulting Provider: Nic Roman Consult Reason/Comments: chf Do you want consulting provider notified?: Yes Primary care physician: Keila Young Hospital Course: Final Diagnosis Abdominal distention with concern for ileus vs. SBO, resolving Acute on chronic hypoxemic respiratory failure secondary to acute exacerbation of systolic CHF Staph aureus bacteremia Leukocytosis possibly from recent steroid injection to shoulder Recent RSV infection requiring home oxygen on discharge Oral thrush and mouth sores Volume overload likely from fluids received during prior hospital stay Recent steroid injection into left shoulder prior admission Transaminitis likely from vascular congestion Hypervolemic hyponatremia Hyperkalemia Urinary retention requiring indwelling medina catheter Hypertension Hyperlipidemia Complete heart block and permanent pacemaker Asthma/COPD Hx of diverticulitis with colostomy and reversal Hx GI bleed Discharge Disposition Patient stable for discharge to [facility] rehabilitation. She will continue IV cefazolin through a line for 10 days of antibiotic therapy. Patient to follow- up with STERLING Pulliam in the office in 1 week. Patient to continue on bowel regimen with lactulose twice daily as needed. Repeat blood work in 2 to 3 days. Hospital Course This is an 83 year old female with medical history of asthma, COPD, permanent pacemaker, hypertension, hyperlipidemia, GI bleed, recent admission for RSV. Patient was discharged home on Wednesday from this hospital she was treated during that stay for acute RSV, COPD exacerbation and pneumonia. She had been recommended for subacute rehab although patient and family had opted for return home on discharge. Patient was discharged on 3L of oxygen which has has been wearing, since arrival home she has been increasingly short of breath, having continued cough and noted to have significant lower extremity edema. Because of the edema patient was unable to ambulate. She has been taking oral lasix at home without improvement in her symptoms. Patient was found to be hypoxic with saturations in the 80s and brought to the hospital for further evaluation. Patient noted to have significant abdominal distention and states she has not had a good sized bowel movement since Wednesday. Now patient returns with chest xray revealing cardiomegaly with small left pleural effusion and left basilar acute infiltrate and or atelectasis. proBNP was elevated at 3680. Echocardiogram completed on June 13 during prior admission reveals an EF of 45- 50%.Patient had white blood cell count of 48. Sodium of 130, potassium 5.5, elevation of LFTs, procalcitonin level of 16.40. Viral panel is negative for influenza, RSV and covid. Patient was started empirically on IV ceftriaxone and IV solumedrol. Cultures were taken. Pulmonology and cardiology consulted. Patient's main complaint is her abdominal distention and she has been unable to have a bowel movement for over a week now. She received multiple enemas a dose of lactulose also underwent barium enema. Patient is now having multiple bowel movements. Barium enema findings of severe sigmoid diverticulosis involving the sigmoid colon with circular wall hypertrophy and mild luminal narrowing which may result a degree of proximal distention no definite fluoroscopic evidence to suggest acute diverticulitis. Patient is not having any more abdominal distention. Patient did have positive blood cultures showing Staphylococcus aureus. Her repeat blood cultures negative as well negative urine culture. ID was consulted and following. She remains on IV cefazolin and oral Flagy\l while in the hospital and ID recommending 10 days of IV cefazolin through a PICC line on discharge. She is on Mycostatin for oral thrush. She continues on oxygen via nasal cannula on 4 L. Her white blood cell count is normalized to 10.2, hemoglobin 10.3, sodium of 132, potassium 3.3, BUN of 16 creatinine 0.50. Patient was transition back to oral Lasix from the IV Lasix. She is euvolemic at this time. She is awake alert oriented her lungs are clear. Her electrolytes have all normalized. Patient will be discharged to [facility] today. Please see medication reconciliation for a list of current medications. Thank you for allowing us to participate in the care of this patient. The impression and plan of care has been dictated by Anh Moore, Nurse Practitioner as directed. Dr. Faheem MD I have performed a history and physical examination and medical decision making of this patient, discussed the same with the dictator, and agree with the dictators assessment and plan as written, documented as a scribe. Based on total visit time, I have performed more than 50% of this visit. Patient Condition at Discharge: Stable Plan - Discharge Summary Discharge Rx Participant: Yes New Discharge Prescriptions: New Lactulose [Cephulac] 20 gm PO BID PRN ml PRN Reason: Constipation Furosemide [Lasix] 40 mg PO DAILY tab Lidocaine 4% Patch 1 patch TOPICAL HS patch Nystatin 100,000 Unit/ml Susp [Mycostatin Oral Susp] 3,000,000 unit PO TID ml ceFAZolin [Kefzol] 2,000 mg IVPB Q8H 10 Days #30 each Heparin Sodium,Porcine (1 ml) [Heparin Sodium] 5,000 unit SQ Q12HR each Gabapentin [Neurontin] 300 mg PO HS cap Continue Albuterol Inhaler [Ventolin Hfa Inhaler] 2 puff INHALATION RT-Q4H PRN PRN Reason: Shortness Of Breath Levothyroxine Sodium [Synthroid] 125 mcg PO DAILY guaiFENesin-DM 600/30MG [Mucinex Dm] 1 tab PO Q12HR PRN PRN Reason: Cough Lidocaine 4% Cream [Lmx 4] 1 applic TOPICAL DAILY NIFEdipine XL [Procardia XL] 90 mg PO DAILY Losartan Potassium 100 mg PO DAILY Fluticasone/Umeclidin/Vilanter [Trelegy Ellipta 200-62.5-25] 1 puff INHALATION RT-DAILY Lactulose [Cephulac] 30 gm PO BID PRN 7 Days #300 ml PRN Reason: Constipation Docusate [Colace] 100 mg PO BID #60 cap Pantoprazole [Protonix] 40 mg PO AC-BID #60 tab Benzonatate [Tessalon Perles] 200 mg PO TID PRN 7 Days #21 cap PRN Reason: Cough methocarbamoL [Robaxin] 500 mg PO QID PRN #30 tab PRN Reason: Muscle Spasm Acetaminophen Tab [Tylenol] 325 mg PO Q6HR PRN tab PRN Reason: Fever and/ or Mild Pain Potassium Chloride [Klor-Con 10 ER] 10 meq PO DAILY Discontinued Gabapentin 300 mg PO QID PRN PRN Reason: NERVE PAIN Furosemide [Lasix] 40 mg PO DAILY Acetaminophen-Codeine 300-30mg [Tylenol w/codeine #3] 1 tab PO Q6HR PRN PRN Reason: Pain Gabapentin [Neurontin] 100 mg PO DAILY PRN PRN Reason: NERVE PAIN predniSONE See Taper PO DIRECTED Discharge Medication List Albuterol Inhaler [Ventolin Hfa Inhaler] 2 puff INHALATION RT-Q4H PRN 05/09/18 [History] Fluticasone/Umeclidin/Vilanter [Trelegy Ellipta 200-62.5-25] 1 puff INHALATION RT-DAILY 06/10/24 [History] Levothyroxine Sodium [Synthroid] 125 mcg PO DAILY 06/10/24 [History] Losartan Potassium 100 mg PO DAILY 06/10/24 [History] NIFEdipine XL [Procardia XL] 90 mg PO DAILY 06/10/24 [History] Benzonatate [Tessalon Perles] 200 mg PO TID PRN 7 Days #21 cap 06/15/24 [Rx] Docusate [Colace] 100 mg PO BID #60 cap 06/15/24 [Rx] Lactulose [Cephulac] 30 gm PO BID PRN 7 Days #300 ml 06/15/24 [Rx] Pantoprazole [Protonix] 40 mg PO AC-BID #60 tab 06/15/24 [Rx] Acetaminophen Tab [Tylenol] 325 mg PO Q6HR PRN tab 06/20/24 [Rx] methocarbamoL [Robaxin] 500 mg PO QID PRN #30 tab 06/20/24 [Rx] Lidocaine 4% Cream [Lmx 4] 1 applic TOPICAL DAILY 06/23/24 [History] Potassium Chloride [Klor-Con 10 ER] 10 meq PO DAILY 06/23/24 [History] guaiFENesin-DM 600/30MG [Mucinex Dm] 1 tab PO Q12HR PRN 06/23/24 [History] Furosemide [Lasix] 40 mg PO DAILY tab 07/01/24 [Rx] Gabapentin [Neurontin] 300 mg PO HS cap 07/01/24 [Rx] Heparin Sodium,Porcine (1 ml) [Heparin Sodium] 5,000 unit SQ Q12HR each 07/01/24 [Rx] Lactulose [Cephulac] 20 gm PO BID PRN ml 07/01/24 [Rx] Lidocaine 4% Patch 1 patch TOPICAL HS patch 07/01/24 [Rx] Nystatin 100,000 Unit/ml Susp [Mycostatin Oral Susp] 3,000,000 unit PO TID ml 07/01/24 [Rx] ceFAZolin [Kefzol] 2,000 mg IVPB Q8H 10 Days #30 each 07/01/24 [Rx] Follow up Appointment(s)/Referral(s): Dakota Hutton MD [Medical Doctor] - 07/19/24 1:00 pm Savita Parker MD [STAFF PHYSICIAN] - 09/13/24 1:30 pm [facility],[place] [NON-STAFF] - 1 Week Keila Young DO [Primary Care Provider] - 1-2 days Pain Clinic,[facility] [NON-STAFF] - As Needed [facility] [place], [NON-STAFF] - As Needed Last Thomas MD [STAFF PHYSICIAN] - 07/04/24 1:20 pm Margi Pulliam MD [STAFF PHYSICIAN] - 1 Week Ambulatory/Diagnostic Orders: Basic Metabolic Panel [LAB.AMB] Location: None Selected Complete Blood Count w/diff [LAB.AMB] Time Frame: 3 Days, Location: None Selected Activity/Diet/Wound Care/Special Instructions: Continue IV cefazolin 2 grams every 8 hours for 10 days through midline Follow up with Dr Pulliam in the office in 1 week Continue bowel regimen Discharge Disposition: TRANSFER TO SNF/ECF
[2024-07-01 14:24] VITALS: BP 133/60; PULSE 70; TEMP 98.2
--- NOTE | 2024-07-01 14:47 | P.PN ---
Subjective Progress Note Date: 07/01/24 On 06/26/2024, the patient is being seen for a follow-up. The patient is currently comfortable on 4 L of oxygen by nasal cannula. The patient has staff aureus septicemia and the blood culture was positive for MSSA. Meanwhile, I reviewed the CAT scan of the chest abdomen and pelvis that was done on 06/24/2024. I am concerned of the patchy pulmonary potential the patient has peripherally in the right upper lobe and the left upper lobe and those infiltrates have some central cavitation. Based on that, the possibility of septic embolism cannot be completely ruled out. A previous echocardiogram that was done on this patient back in 06/12/2024 showed no valvular vegetation and the patient had a preserved LV function with mild impairment in ejection fraction of 45 to 50%. I think it is worthwhile to repeat the blood cultures and repeat echocardiogram to rule out any possibility of infective endocarditis. Meanwhile, the patient continues to have difficulties with bowel obstruction. She is not sure when was the last bowel movement. She thinks it was approximately 5 days ago. She has a pacema ker in place. The cardiac rhythm is normal sinus at this point. She remains on IV cefazolin. He is also on Flagyl 500 mg p.o. 3 times daily and IV Solu-Medrol 40 mg every 12 hours. He remains on DuoNeb nebulized treatments [id number]. General surgery is on the case regarding her bowel obs truction. The patient is a partial obstruction of the colon exacerbated by constipation. She was given lactulose today to enemas. On 06/27/2024, the patient continues to feel better compared to yesterday. Seems to be less short of breath. She has not had a bowel movement and this has also helped her with her overall respiratory status. She feels less distended and less bloated compared to yesterday. Note that she has bilateral staphylococcal pneumonia left more than right. The patient was found to have MSSA sepsis and the patient is currently on IV cefazolin. Echocardiogram was also repeated and based on the limited views, there was no evidence of any endocarditis. Ejection fraction is normal and the patient had repeat blood culture sent and results are still pending for now.Abdominal x-ray was done today for abdominal distention the patient was found to have distention of the large and small bowel throughout the abdomen. The white cell count is currently down to 13.2 from 20.3. Hemoglobin is stable at 10.8 and a platelet count is at 250. Sodium is at 134, potassium is at 3.4, BUN is 29 and a creatinine of 0.7. The patient was given a flutter valve. The patient was also given an incentive spirometer. She remains on Symbicort. She remains on DuoNeb nebulized treatments [id number]. Rest of the medications remain unchanged. She is also on Flagyl 500 mg p.o. 3 times daily. Patient is being seen by general surgery. No nausea. No emesis. Good appetite. She did have a large bowel movement activity yesterday. On 06/28/2024, the patient is being seen for a follow-up. Overall condition is stable. Denies having any specific complaints. She underwent a barium enema upon recommendations by general surgery and the patient was found to have sigmoid diverticulosis and cervical wall hypertrophy with mild luminal narrowing. No evidence of diverticulitis. The patient is stooling for now. Abdomen is less distended. The white cell count is at 10.2 with a hemoglobin of 10.3 and a platelet count of 261. Sodium is at 132, BUN 16 and a creatinine of 0.5. Repeat blood culture has been negative and the patient had an echocardiogram, limited view that showed no evidence of any endocarditis. Otherwise, the patient denies having any specific complaints. The patient remains on 4 L of oxygen by nasal cannula with a pulse ox of 94%. The patient remains on IV cefazolin. Rest of medications are unchanged. 06/29/2024, patient is being seen for a follow-up. Condition remains stable. No new complaints. Blood cultures are negative. The white cell count is improved from yesterday labs. Renal function stable. Electrolytes are stable. Serum bicarb is up to 38. The patient is a negative fluid balance of 1.7 L over the past 24 hours. The patient remains on diuretics and the patient is currently on 40 mg of Lasix on daily basis. She remains on cefazolin. She remains on Flagyl. She is producing good stool and bowel movements. Abdomen is nondistended. On 06/30/2024, the patient is being seen for a follow-up. Patient is doing well. She had a low-grade fever that is being monitored. She is currently afebrile. She was weaned down to room air oxygen with a pulse ox of 97%. Earlier than that, the patient was on 4 L of oxygen by nasal cannula. Chest x-ray from today shows cardiomegaly and pulm vessel congestion. Otherwise, no other acute abnormalities. Follow-up blood cultures are negative. No abdominal distention. Viral screen is negative. Working on transferring this patient to [facility]. On 07/01/2024, patient is afebrile. Midline was inserted and the patient will be receiving outpatient biotics with IV cefazolin. No new complaints. Electrolytes are all stable. No respiratory difficulties. Objective - Vital Signs Vital signs: Vital Signs Temp 98.1 F 07/01/24 08:00 Pulse 88 07/01/24 11:32 Resp 17 07/01/24 08:00 BP 170/80 07/01/24 08:00 Pulse Ox 95 07/01/24 08:00 FiO2 Intake & Output 06/30/24 07/01/24 07/01/24 18:59 06:59 18:59 Other: Voiding Method Toilet # Voids 2 2 - Exam No acute distress, oriented 3. The patient is currently on room air oxygen. HEENT examination is grossly unremarkable. Mucous membranes are moist. No oral lesions. Neck supple. Full range of motion. No adenopathy thyromegaly or neck vein distention. Cardiovascular examination reveals regular rhythm rate. S1-S2 normal. No S3 or S4. No discernible murmur noted. Lungs reveal mild scattered rhonchi, at the left lung base. No wheezes. No crackles. Right lung is relatively clear. Abdomen soft bowel sounds are heard. No masses or tenderness. Abdomen is slightly distended. There is no tenderness. Bowel sounds are hypoactive. Extremities are intact. No cyanosis or clubbing. Mild edema is present. Skin is without rash or lesion. Neurologic examination is brief but nonfocal. - Labs CBC & Chem 7: 06/28/24 06:08 07/01/24 03:31 Labs: Abnormal Lab Results - Last 24 Hours (Table) 07/01/24 Range/Units 03:31 BUN 5.4 L (9.0-27.0) mg/dL BUN/Creatinine Ratio 7.71 L (12.00-20.00) Ratio Calcium 7.6 L (8.7-10.3) mg/dL Assessment and Plan Plan: Acute on chronic hypoxemic respiratory failure secondary to an acute exacerbation of systolic congestive heart failure. the patient is currently on 4 L of oxygen by nasal cannula. CAT scan of the chest was noted and the patient has patchy peripheral pulmonary opacities left upper lobe and the right upper lobe with some central cavitation. The patient also has lower lobe consolidation bilaterally. Staph aureus septicemia, still under investigation the patient remains on IV cefazolin. This is an MSSA infection. 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 Rule out endovascular infection and the patient has a pacemaker in place. Repeat blood cultures still pending for now. Meanwhile, the patient is clinically and hemodynamically stable. White cell count is improving. Leukocytosis secondary to bacteremia with presumptive Staph aureus. The white cell count is improving and it was as high as 48,000 currently down to 20 and furthermore, the white cell count dropped Abdominal pain secondary to suspected colonic ileus/obstruction. There is a partial small bowel obstruction. The patient was able to have a large bowel movement yesterday and the patient is feeling less distended and less bloated compared to yesterday. Overall respiratory status is also improved. Ba enema was completed and it is consistent with diverticulosis Hyponatremia, improving. Hyperkalemia, improved. Transaminitis, improving. Recent hospitalization from June 10 to June 20, 2024 for RSV infection, COPD exacerbation, right lower lobe pneumonia. Acute on chronic pain secondary to degenerative arthritis requiring pain clinic intervention. History of complicated diverticulitis requiring colectomy, colostomy and subsequent reversal. Complete heart block requiring permanent pacemaker implantation. Multiple orthopedic surgeries due to degenerative arthritis. History of skin cancer, removed. History of migraines. Hypothyroidism status post partial thyroidectomy. Poor overall functional performance based on the above-mentioned multiple comorbidities. Plan: Overall condition is unchanged, clinically stable. Midline was inserted and the patient will receive outpatient biotics with IV cefazolin. Wean down the FiO2 and the patient possibly can be placed on room air oxygen Monitor fever pattern Continue DuoNeb updrafts Continue IV cefazolin Repeat blood cultures are negative Repeat limited echocardiogram showed no evidence of any endocarditis Patient had a bowel movement and the patient is stooling Feels better ID is on the case General Surgery is on the case White cell count is improving No hypotension Discharge planning is in progress and the patient is being considered for ECF with IV antibiotics. We will sign off the case.
--- NOTE | 2024-07-01 16:01 | P.PN ---
Subjective Progress Note Date: 07/01/24 Principal diagnosis: Reason for follow-up is pneumonia and bacteremia Patient is a 83-year-old female with a past medical history significant for asthma COPD GI bleed musculoskeletal disorder presenting to the hospital for evaluation of increasing shortness of breath patient did have possible culture with MSSA prompted this consultation, did have a CT of the chest abdominal pelvis concerning for left upper right middle lobe consolidation suggestive of pneumonia and large stool burden concerning for large bowel obstruction On today's evaluation that is 07/01/2024, patient did not have any fever and denies any chills, patient is breathing comfortably on 2 L current oxygen patient with no chest pain or any worsening cough patient did not have any abdominal pain nausea vomiting or any loose stools. Patient did have creatinine 0.7 no CBC was done today blood culture repeat has been negative Objective - Vital Signs Vital signs: Vital Signs Temp 98.2 F 07/01/24 14:00 Pulse 70 07/01/24 14:00 Resp 17 07/01/24 14:00 BP 133/60 07/01/24 14:00 Pulse Ox 98 07/01/24 14:00 FiO2 Intake & Output 06/30/24 07/01/24 07/01/24 18:59 06:59 18:59 Intake Total 960 Balance 960 Intake: Oral 960 Other: Voiding Method Toilet # Voids 2 2 - Exam GENERAL DESCRIPTION: An elderly female up in the chair in no distress RESPIRATORY SYSTEM: Unlabored breathing , decreased breath sounds at bases HEART: S1 S2 regular rate and rhythm , ABDOMEN: Soft , mild distention and tenderness EXTREMITIES: No edema feet - Labs CBC & Chem 7: 06/28/24 06:08 07/01/24 03:31 Labs: Abnormal Lab Results - Last 24 Hours (Table) 07/01/24 Range/Units 03:31 BUN 5.4 L (9.0-27.0) mg/dL BUN/Creatinine Ratio 7.71 L (12.00-20.00) Ratio Calcium 7.6 L (8.7-10.3) mg/dL Assessment and Plan (1) MSSA bacteremia Current Visit: Yes Status: Acute Code(s): R78.81 - BACTEREMIA; B95.61 - METHICILLIN SUSCEP STAPH INFCT [facility] Code(s): 176235096 (2) Leukocytosis Current Visit: Yes Status: Acute Code(s): D72.829 - ELEVATED WHITE BLOOD CELL COUNT, UNSPECIFIED SNOMED Code(s): 694567746 Plan: 1patient with MSSA bacteremia in this patient presenting to the hospital with increasing shortness of breath and a cough concerning likely for pneumonia to be likely source for this MSSA bacteremia underlying endovascular source cannot be excluded, patient also having significant abdominal pain at a tenderness etiology likely bowel obstruction did not mention any colitis 2-patient did have CT of chest abdominal pelvis concerning for pneumonia and bowel obstruction for the patient seem to have responded to the conservative treatment and is having bowel movement 3-patient white count has normalized and blood culture repeat has been negative so far 4patient did have a midline placement she will continue with IV cefazolin on d ischarge and close outpatient follow-up Family the bedside updated about her care Dictation was produced using [employer] dictation software. please excuse any grammatical, word or spelling errors. Time with Patient: Less than 30
--- NOTE | 2024-07-04 08:50 | CDI ---
Documentation Clarification Form Date: 07/04/2024 From: Amelia Peng Admit Date: 06/26/2024 07:50:00 AM Patient Name: Guera Lopez Visit Number: [id number] Discharge Date: 07/01/2024 05:03:00 PM ATTENTION: The Clinical Documentation Specialists (CDI) and [facility] Coding Staff appreciate your assistance in clarifying documentation. Please respond to the clarification below the line at the bottom and electronically sign. The CDI & [facility] Coding staff will review the response and follow-up if needed. Please note: Queries are made part of the Legal Health Record. If you have any questions, please contact the author of this message via ITS. Doctor/Provider: Suni Mayen, There is documentation of bacteremia in 06/24 progress note and them is subsequent PNs. Bacteremia is considered a lab finding. Additional clarification regarding bacteremia is requested. Patient history/risk factors: AECOPD, HTN w acute on chronic systolic CHF, HLD, s/p pacemaker, s/p RSV pneumonia Clinical Indicators: Patient presenting to the hospital with increasing shortness of breath and a cough concerning likely for pneumonia to be likely source for this MSSAbacteremia. WBC: 48.4 (3/7) Left Shift: 47.90 (3/7) Blood Culture: Staphylococcus aureus. Lactic acid: 1.7 (3/7) Procalcitonin: 16.40 (3/7) Treatment: EKG - no vegetation found. Midline placed on 06/30 for continuation of IV antibiotics. Antibiotics: IV Azithromycin, IV Cefazolin sodium, IV Ceftriaxone sodium, IV Zoysn Please provide additional clarification regarding the etiology/cause and/or clinical significance of the bacteremia: [ x ] Bacteremia is related to sepsis due to Staphylococcus aureus, POA [ ] Bacteremia is related to sepsis due to Staphylococcus aureus, not POA [ ] Bacteremia from Staphylococcus aureus, POA [ ] Bacteremia from Staphylococcus aureus, not POA [ ] Unable to determine MTDD
== END 2024-07-01 17:03 | DRG 871 ==
LOC: EC 04:28 → 4SSUR 07:02 → 3SCARD 06-24 16:38 → OBSVTOIN 06-26 07:50 → 4SSUR 06-28 16:31
PROVIDERS: ADMIT Hospitalist; ATTEND Hospitalist
PROC: 05HC33Z Insertion of Infusion Device into Left Basilic Vein, Percutaneous Approach (ICD-10-PCS; principal; 2024-06-30 15:10)
DX: A41.01 Sepsis due to Methicillin susceptible Staphylococcus aureus (principal); E43 Unspecified severe protein-calorie malnutrition; I50.23 Acute on chronic systolic (congestive) heart failure; J96.21 Acute and chronic respiratory failure with hypoxia; J15.211 Pneumonia due to Methicillin susceptible Staphylococcus aureus; K56.690 Other partial intestinal obstruction; I44.2 Atrioventricular block, complete; B37.0 Candidal stomatitis; J44.1 Chronic obstructive pulmonary disease with (acute) exacerbation; I11.0 Hypertensive heart disease with heart failure; E89.0 Postprocedural hypothyroidism; I08.3 Combined rheumatic disorders of mitral, aortic and tricuspid valves; J44.0 Chronic obstructive pulmonary disease with (acute) lower respiratory infection; E87.1 Hypo-osmolality and hyponatremia; J98.11 Atelectasis; K56.41 Fecal impaction; I25.5 Ischemic cardiomyopathy; E87.5 Hyperkalemia; E78.5 Hyperlipidemia, unspecified; R33.9 Retention of urine, unspecified; G89.29 Other chronic pain; K57.30 Diverticulosis of large intestine without perforation or abscess without bleeding; K21.9 Gastro-esophageal reflux disease without esophagitis; M19.90 Unspecified osteoarthritis, unspecified site; E87.6 Hypokalemia; R74.01 Elevation of levels of liver transaminase levels; Z99.81 Dependence on supplemental oxygen; Z79.51 Long term (current) use of inhaled steroids; Z79.890 Hormone replacement therapy; Z79.899 Other long term (current) drug therapy; Z88.5 Allergy status to narcotic agent; Z91.041 Radiographic dye allergy status; Z95.0 Presence of cardiac pacemaker; Z85.828 Personal history of other malignant neoplasm of skin; Z96.611 Presence of right artificial shoulder joint; Z96.641 Presence of right artificial hip joint; Z87.891 Personal history of nicotine dependence
CPT/HCPCS: 36410; 36415; 51702; 71045; 71046; 71250; 74018; 74019; 74176; 74270; 76937; 80048; 80053; 81001; 82607; 82746; 83605; 83880; 84132; 84145; 84484; 85025; 85610; 85730; 87040; 87077; 87086; 87186; 87636; 93005; 93308; 94640; 94760; 96365; 96366; 96367; 96375; 99285